=== PATIENT | female | born 1960 | race Caucasian/White ===

== ENCOUNTER 2017-11-08 12:17 | Emergency (ER) | payer SELFPAY ==
[2017-11-08] MEDS ORDERED: NORMAL SALINE 1000 ML 1,000 ML IV ONE ×3 (12:41→15:38)
[2017-11-08 12:59] LABS: ABSOLUTE LYMPHOCYTES (AUTO) 1.4 10^3/uL (0.5-4.7); ABSOLUTE MONOCYTES (AUTO) 0.5 10^3/uL (0.1-1.4); ABSOLUTE NEUT (AUTO) 11.5 10^3/uL (1.7-8.2); BASOPHILS % (AUTO) 0.3 % (0-2); EOSINOPHILS % (AUTO) 0.2 % (0-6); HEMATOCRIT 44.5 % (36.0-47.0); HEMOGLOBIN 15.4 g/dL (12.0-15.5); LYMPHOCYTES % (AUTO) 10.7 % (13-45); MEAN CORPUSCULAR HEMOGLOBIN 27.9 pg (27.0-33.4); MEAN CORPUSCULAR HGB CONC 34.5 g/dL (32.0-36.0); MEAN CORPUSCULAR VOLUME 81 fl (80-97); MONOCYTES % (AUTO) 3.9 % (3-13); PLATELET COUNT 204 10^3/uL (150-450); RED BLOOD COUNT 5.51 10^6/uL (3.72-5.28); RED CELL DISTRIBUTION WIDTH 12.8 % (11.5-14.0); SEGMENTED NEUTROPHILS % (AUTO) 84.9 % (42-78); TOTAL CELLS COUNTED % (AUTO) 100 %; WHITE BLOOD COUNT 13.6 10^3/uL (4.0-10.5)
--- NOTE | 2017-11-08 13:07 | ER Document Report ---
ED General - General Chief Complaint: Altered Mental Status Stated Complaint: BLOOD PRESSURE ISSUES Time Seen by Provider: 11/08/17 12:40 Notes: The patient is a 57-year-old female, past medical history diabetes, hypertension , diabetic gastroparesis, presents with 1 week of intermittent nausea, vomiting , body aches and chills. She said that she was unable to take her blood pressure or diabetes medications. Patient tried Phenergan and Zofran at home without much relief of her nausea and vomiting. She denies abdominal pain, hematemesis, fevers, back pain, urinary symptoms, headache or rash. TRAVEL OUTSIDE OF THE [place] IN LAST 30 DAYS: No - Related Data Allergies/Adverse Reactions: metaxalone [From Skelaxin] Allergy (Verified 11/08/17 12:41) metformin Allergy (Verified 11/08/17 12:41) Past Medical History - General Information source: Patient - Social History Smoking Status: Unknown if Ever Smoked Family History: Reviewed & Not Pertinent Review of Systems - Review of Systems Notes: REVIEW OF SYSTEMS: CONSTITUTIONAL: -fevers, +chills EENT: -eye pain, -difficulty swallowing, -nasal congestion CARDIOVASCULAR: -chest pain, -syncope. RESPIRATORY: -cough, -SOB GASTROINTESTINAL: -abdominal pain, +nausea, +vomiting, -diarrhea GENITOURINARY: -dysuria, -hematuria MUSCULOSKELETAL: -back pain, -neck pain SKIN: -rash or skin lesions. HEMATOLOGIC: -easy bruising or bleeding. LYMPHATIC: -swollen, enlarged glands. NEUROLOGICAL: -altered mental status or loss of consciousness, -headache, - neurologic symptoms PSYCHIATRIC: -anxiety, -depression. ALL OTHER SYSTEMS REVIEWED AND NEGATIVE. Physical Exam - Vital signs Vitals: Temp Pulse Resp Pulse Ox 98.0 F 92 18 99 11/08/17 12:41 11/08/17 12:41 11/08/17 12:41 11/08/17 12:41 - Notes Notes: PHYSICAL EXAMINATION: GENERAL: Well-appearing, well-nourished and in no acute distress. HEAD: Atraumatic, normocephalic. EYES: Pupils equal round and reactive to light, extraocular movements intact, sclera anicteric, conjunctiva are normal. ENT: nares patent, oropharynx clear without exudates. Moist mucous membranes. NECK: Normal range of motion, supple without lymphadenopathy LUNGS: Breath sounds clear to auscultation bilaterally and equal. No wheezes rales or rhonchi. HEART: Regular rate and rhythm without murmurs ABDOMEN: Soft, nontender, normoactive bowel sounds. No guarding, no rebound. No masses appreciated. EXTREMITIES: Normal range of motion, no pitting or edema. No cyanosis. NEUROLOGICAL: Cranial nerves grossly intact. Normal speech, normal gait. Normal sensory and motor exams. PSYCH: Normal mood, normal affect. SKIN: Warm, Dry, normal turgor, no rashes or lesions noted. Course - Re-evaluation Re-evalutation: Patient was slightly confused on arrival that quickly resolved after IV fluids and Reglan. She is no longer having nausea or vomiting and her abdomen is completely soft and nontender. She was able to tolerate her blood pressure and diabetes medications. She has an appointment with her primary care physician this week and instructed her to continue this appointment. Given very strict return precautions and she understands. - Vital Signs Vital signs: Temp Pulse Resp BP Pulse Ox 98.0 F 92 15 198/81 H 98 11/08/17 12:41 11/08/17 12:41 11/08/17 17:54 11/08/17 17:54 11/08/17 17:54 - Laboratory Result Diagrams: 11/08/17 12:45 11/08/17 12:45 Laboratory results interpreted by me: 11/08/17 11/08/17 11/08/17 12:33 12:45 12:45 WBC 13.6 H RBC 5.51 H Seg Neutrophils % 84.9 H Lymphocytes % 10.7 L Absolute Neutrophils 11.5 H Sodium 135.7 L Chloride 94 L BUN 28 H Glucose 413 H* POC Glucose 377 H Calcium 10.3 H - Diagnostic Test Radiology reviewed: Image reviewed, Reports reviewed Radiology results interpreted by me: Head CT: NAD Discharge - Discharge Clinical Impression: Hyperglycemia Nausea and vomiting Qualifiers: Vomiting type: unspecified Vomiting Intractability: non-intractable Qualified Code(s): R11.2 - Nausea with vomiting, unspecified Condition: Stable Disposition: HOME, SELF-CARE Additional Instructions: Use the Reglan to help with any nausea and vomiting. Drink plenty of water and follow-up with your primary care physician for possible adjustments of your blood pressure and diabetes medications. INFLUENZA: The physician feels that you have influenza -- the "flu". Influenza is an infection caused by a virus. Symptoms include generalized aching, fever, headache, dry cough, and fatigue. Some patients with the flu also have nausea, vomiting, and diarrhea. The fever and aches usually last two to four days, with the cough persisting another one to two weeks. Treatment of the flu, for the most part, is simply treatment of symptoms. Rest, drink plenty of fluids, and use acetaminophen for fever and aches. Do not take aspirin. There is an anti-viral medication, called Tamiflu, which may help in "type A" flu, but it's not helpful in every case of flu, and only works if started within the first 24 - 48 hours of the start of symptoms. The physician will determine whether this medication can help you. To prevent spread of the virus, use good handwashing. Shared toys should be cleaned with disinfectant. Clean the toilets, sinks, and counter surfaces in bathrooms. Launder clothing in hot water. What are conditions that should receive medical attention? The development of difficulty breathing. Lip color changes to blue or purple. Persistent vomiting and unable to keep liquids down with signs of dehydration such as: dizziness when standing, unable to urinate, or if child/ is crying no tears are noticed. Is less responsive than normal or becomes confused. How do I decrease the spread of flu in my home? Taking care of the sick patient at home: Keep the sick person in a room separate from the common areas of the house. Keep the "sickroom" door closed. If the person with the flu needs to leave the home, they should cover their nose/mouth when coughing or sneezing and wear a disposable (surgical) mask if available. These masks may be available at your local pharmacy, medical supply and hardware store. If the sick person is in common areas of the house, have them wear a surgical mask. If possible, have the sick person use a separate bathroom that should be cleaned daily with a household disinfectant. If you are the caregiver: Avoid being face to face with the sick adult person as much as possible. Try to stay at least 6 feet away and wear a disposable surgical mask when possible. When holding small children who are sick, place their chin on your shoulder so that they will not cough in your face. Wash your hands after you touch the sick person or handle their tissues and laundry. Wear a mask if you leave home, as you may be infected from taking care of someone and not know it yet. Watch yourself and others in the home for flu symptoms and contact your doctor if symptoms occur. NOTE: Antiviral medication used to reduce the symptoms of the flu works only if taken within 48 hours, and best within 24 hours of symptom onset. Household Cleaning, laundry and waste disposal: Tissues and other disposable items used by the sick person should be thrown away in the trash. Wash your hands after touching these used items. No special waste disposal is required. Keep surfaces (especially bedside tables, bathroom surfaces, and toys for children) clean by wiping them down with a safe household disinfectant according to the directions on the product label. Per Center for Disease Control advice, most people will not receive testing to confirm flu. Also based on the person's health history and onset of symptoms, not all patients will receive prescriptions for antiviral medications. If you have questions related to this, please ask your healthcare provider. For more information, you can call the Centers for Disease Control and Prevention (CDC) Hotline at 9-276-WRP-INFO This line is available in [place]ic and Martiniquais, 24 hours a day, 7 days a week. Or www.[employer]ides or www.cdc.gov Flu-Like Illness Home Instructions: The influenza virus infection can cause a wide rage of symptoms, including: Fever, cough, sore throat, body aches, headaches, chills, fatigue, with some patients reporting diarrhea and vomiting Like seasonal influenza A, H1N1 ("swine flu")in humans can vary in severity from mild to severe Severe illness with pneumonia, respiratory failure and even is possible Certain groups might be more likely to develop a severe illness from H1N1 infection. Sometimes bacterial infections may occur at the same time as or after infection with influenza viruses and lead to pneumonias, ear infections, or sinus infections. How Flu Spreads The main way that influenza viruses spread is through respiratory droplets of coughs and sneezes. This can happen when someone with the infection coughs or sneezes and the particles fly through the air and land on other people and surfaces. If the person covers their mouth and nose with their hand but does not wash their hands immediately, then these germs are passed onto the next object that they touch. People with Influenza A or suspected H1N1 (swine flu) who are cared for at home should: Check with their doctor about any special care that they might need if they are or have a health condition such as diabetes, heart disease, asthma or emphysema. Also, limit caregiver to one (if possible). women or those with chronic health conditions should not take care of the flu patient unless necessary. Check with their doctor about whether or not medications are needed that may lessen the symptoms of the flu. Stay at home until 24 hours fever free without the use of fever reducing medication. Get plenty of rest and avoid other healthy people in your home. Drink plenty of clear liquids to keep from getting dehydrated. Take medications like Tylenol (Acetaminophen), Advil/Motrin/Nuprin ( Ibuprofen) or Aleve (Naproxen) for fevers and aches. All children under the age of 18 years of age should not take aspirin or products containing aspirin (e.g. Pepto Bismol), as this can cause a rare serious illness called Jim Syndrome. Over the counter medications for flu and colds may help, but it is very important to follow the package directions. Remember that the medicine may help the symptoms, but it will not help prevent others from getting sick if they are around you. Cover coughs and sneezes using your bent arm. Clean hands with soap and water or an alcohol-based hand rub often, especially after using tissues to cough or sneeze. Encourage hand washing frequently for all people living in the home! The sick person should not have visitors other than caregivers. Encourage concerned loved ones to call instead of visit. Avoid close contact with others-do not go to work or school while sick. USE OF ACETAMINOPHEN (Tylenol): Acetaminophen may be taken for pain relief or fever control. It's much safer than aspirin, offering a wider range of "safe" dosages. It is safe during . Some brand names are Tylenol, Panadol, Datril, Anacin 3, Tempra, and Liquiprin. Acetaminophen can be repeated every four hours. The following are maximum recommended dosages: WEIGHT Dose Drops Elixir Chewable( 80mg) (LBS.) drprs=droppers tsp=teaspoon 6 40 mg 0.4 ml (1/2) 6-11 80 mg 0.8 ml (full) tsp 1 tab 12-16 120 mg 1 1/2 drprs 3/4 tsp 1 1/2 tabs 17-23 160 mg 2 drprs 1 tsp 2 tabs 24-30 240 mg 3 drprs 1 1/2 tsp 3 tabs 30-35 320 mg 2 tsp 4 tabs 36-41 360 mg 2 1/4 tsp 4 1/2 tabs 42-47 400 mg 2 1/2 tsp 5 tabs 48-53 480 mg 3 tsp 6 tabs 54-59 520 mg 3 1/4 tsp 6 1/2 tabs 60-64 560 mg 3 1/2 tsp 7 tabs 65-70 600 mg 3 3/4 tsp 7 1/2 tabs 71-76 640 mg 4 tsp 8 tabs 77-82 720 mg 4 1/2 tsp 9 tabs 83-88 800 mg 5 tsp 10 tabs >89 pounds or adults 650 mg to 900 mg Acetaminophen can be repeated every four hours. Maximum dose not to exceed 4000 mg a day. These maximum recommended dosages are slightly higher than the dosages written on the product container, but these dosages are very safe and below the toxic dosage for acetaminophen. ORAL NARCOTIC MEDICATION: You have been given a prescription for pain control. This medication is a narcotic. It's best taken with food, as nausea can result if taken on an empty stomach. Don't operate machinery or drive within six hours of taking this medication. Do not combine this medicine with alcohol, or with any medication which can cause sedation (such as cold tablets or sleeping pills) unless you get permission from the physician. Narcotics tend to cause constipation. If possible, drink plenty of fluids and eat a diet high in fiber and fruits. Please be aware that prescription narcotics also have the potential for abuse. People become addicted to these medications because of the general sense of wellbeing that they induce. This feeling along with a significant reduction in tension, anxiety, and aggression provides a stimulating seductive quality to these drugs. Once your pain is under control, we encourage you to discard your unused narcotics. FOLLOW-UP CARE: If you have been referred to a physician for follow-up care, call the physician s office for an appointment as you were instructed or within the next two days. If you experience worsening or a significant change in your symptoms, notify the physician immediately or return to the Emergency Department at any time for re-evaluation. Prescriptions: Metoclopramide HCl [Reglan 10 mg Tablet] 1 - 2 tab PO ASDIR PRN #25 tablet PRN Reason: Forms: Elevated Blood Pressure Referrals: CHAD ZUNIGA MD [[facility]] - Follow up as needed
[2017-11-08 13:20] LABS: ALANINE AMINOTRANSFERASE 23 U/L (9-52); ALKALINE PHOSPHATASE 101 U/L (38-126); ANION GAP 17 (5-19); ASPARTATE AMINO TRANSFERASE 19 U/L (14-36); BILIRUBIN,DIRECT 0.3 mg/dL (0.0-0.4); BILIRUBIN,TOTAL 0.8 mg/dL (0.2-1.3); BLOOD UREA NITROGEN 28 mg/dL (7-20); CALCIUM 10.3 mg/dL (8.4-10.2); CARBON DIOXIDE 25 mmol/L (22-30); CHLORIDE 94 mmol/L (98-107); CREATINE KINASE 57 U/L (30-135); LIPASE 81.3 U/L (23-300); POTASSIUM 4.2 mmol/L (3.6-5.0); SODIUM 135.7 mmol/L (137-145); TOTAL PROTEIN 6.4 g/dL (6.3-8.2)
[2017-11-08 13:34] LABS: GLUCOSE 413 mg/dL (75-110)
--- NOTE | 2017-11-08 13:38 | RADIOLOGY REPORT (SQ) ---
EXAM DESCRIPTION: CT HEAD WITHOUT COMPLETED DATE/TIME: 11/08/2017 1:11 pm REASON FOR STUDY: AMS COMPARISON: None. TECHNIQUE: Axial images acquired through the brain without intravenous contrast. Images reviewed wi th bone, brain and subdural windows. Images stored on PACS. All CT scanners at this facility use dose modulation, iterative reconstruction, and/or weight based d osing when appropriate to reduce radiation dose to as low as reasonably achievable (ALARA). [facility]: Dose Right [facility]: CareDose [facility]: Dose Right [facility]: Teradose 4D [facility]: [employer] RADIATION DOSE: CT Rad equipment meets quality standard of care and radiation dose reduction techniq ues were employed. CTDIvol: 64.6 mGy. DLP: 1163 mGy-cm. mGy. LIMITATIONS: None. FINDINGS: VENTRICLES: Normal size and contour. CEREBRUM: There is evidence of a focal areas of decreased attenuation in the left periventricular wh ite matter consist with old infarcts. No intracranial hemorrhage identified. No additional abnormal areas of increased decreased attenuation noted. CEREBELLUM: No masses. No hemorrhage. No alteration of density. No evidence for acute infarction. EXTRAAXIAL SPACES: No fluid collections. No masses. ORBITS AND GLOBE: No intra- or extraconal masses. Normal contour of globe without masses. CALVARIUM: No fracture. PARANASAL SINUSES: There is evidence of hyperdense mucosal thickening within the right sphenoid sinus . Minimal mucosal thickening left sphenoid sinus. Fluid level within sphenoid sinus noted. 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 Acute and chronic sphenoid sinusitis. EVIDENCE OF ACUTE STROKE: NO. COMMENT: Quality ID # [id number]: Final reports with documentation of one or more dose reduction techniques (e.g., Automated exposure control, adjustment of the mA and/or kV according to patient size, use of iterative reconstruction technique) TECHNICAL DOCUMENTATION: JOB ID: [id number] 2010 [employer]- All Rights Reserved
[2017-11-08 13:49] LABS: VENOUS BLOOD HCO3 25.4 mmol/L (20-32); VENOUS BLOOD PH 7.38 (7.30-7.42)
[2017-11-08] MEDS ORDERED: METOCLOPRAMIDE HCL INJ/PF 10 MG/2 ML SDV IV ONE (13:49)
[2017-11-08] MEDS ORDERED: DIPHENHYDRAMINE HCL 50 MG/ML VIAL IV ONE (13:50)
[2017-11-08 17:57] VITALS: BP 198/81
--- NOTE | 2017-11-08 22:34 | EKG REPORT ---
SEVERITY:- ABNORMAL ECG - SINUS RHYTHM CONSIDER ANTEROSEPTAL INFARCT : Confirmed by: Candis Schofield 08-Nov-2017 22:33:48
== END 2017-11-08 18:31 | disposition home or self-care (01) ==
LOC: ER 12:17
DX: E11.65 Type 2 diabetes mellitus with hyperglycemia (principal); E11.43 Type 2 diabetes mellitus with diabetic autonomic (poly)neuropathy; K31.84 Gastroparesis; R11.2 Nausea with vomiting, unspecified; R68.83 Chills (without fever); R41.0 Disorientation, unspecified; I10 Essential (primary) hypertension; Z79.899 Other long term (current) drug therapy; Z88.8 Allergy status to other drugs, medicaments and biological substances
CPT/HCPCS: 93005; 99285; 96361; 51701; 96374; 96375; 36415; 82962; 82550; 83690; 85025; 80053; 84484; 82803; 70450; 93010; J1200; J2765; J7030

== ENCOUNTER 2017-12-03 19:31 | Inpatient (IN) | payer OTHER ==
--- NOTE | 2017-12-03 20:13 | ER Document Report ---
ED Medical Screen (RME) - General Chief Complaint: Other Stated Complaint: WEIGHT GAIN Time Seen by Provider: 12/03/17 20:12 Notes: Patient reports a 12 pound weight gain in the last 2 weeks. She also states that she has some dysuria and has been urinating less than normal. Patient also states that both legs have been swelling. She is having some lower abdominal cramping. No previous history of similar pain. No history of DVTs. TRAVEL OUTSIDE OF THE [place] IN LAST 30 DAYS: No - Related Data Allergies/Adverse Reactions: metaxalone [From Skelaxin] Allergy (Verified 12/03/17 20:00) metformin Allergy (Verified 12/03/17 20:00) Past Medical History - Social History Chew tobacco use (# tins/day): No Frequency of alcohol use: Occasional Drug Abuse: None - Past Medical History Cardiac Medical History: Reports: Hx Hypertension Endocrine Medical History: Reports: Hx Diabetes Mellitus Type 2 Renal/ Medical History: Denies: Hx Peritoneal Dialysis GI Medical History: Reports: Hx Gastroesophageal Reflux Disease Past Surgical History: Reports: Hx Abdominal Surgery, Hx Cholecystectomy
[2017-12-03 20:36] LABS: ABSOLUTE BASOPHILS # (AUTO) 0.1 10^3/uL (0.0-0.2); ABSOLUTE EOSINOPHILS # (AUTO) 0.1 10^3/uL (0.0-0.6); ABSOLUTE MONOCYTES (AUTO) 0.8 10^3/uL (0.1-1.4); ABSOLUTE NEUT (AUTO) 9.5 10^3/uL (1.7-8.2); BASOPHILS % (AUTO) 0.7 % (0-2); EOSINOPHILS % (AUTO) 1.1 % (0-6); HEMOGLOBIN 11.3 g/dL (12.0-15.5); LYMPHOCYTES % (AUTO) 8.4 % (13-45); MEAN CORPUSCULAR HEMOGLOBIN 27.9 pg (27.0-33.4); MEAN CORPUSCULAR HGB CONC 34.3 g/dL (32.0-36.0); MEAN CORPUSCULAR VOLUME 81 fl (80-97); MONOCYTES % (AUTO) 7.3 % (3-13); PLATELET COUNT 138 10^3/uL (150-450); RED BLOOD COUNT 4.06 10^6/uL (3.72-5.28); RED CELL DISTRIBUTION WIDTH 13.4 % (11.5-14.0); SEGMENTED NEUTROPHILS % (AUTO) 82.5 % (42-78); TOTAL CELLS COUNTED % (AUTO) 100 %; WHITE BLOOD COUNT 11.5 10^3/uL (4.0-10.5)
[2017-12-03 20:52] LABS: APPEARANCE,URINE CLEAR; BILIRUBIN,URINE NEGATIVE (NEGATIVE); COLOR,URINE STRAW; GLUCOSE, URINE NEGATIVE (NEGATIVE); KETONES,URINE NEGATIVE (NEGATIVE); LEUKOCYTE ESTERASE,URINE NEGATIVE (NEGATIVE); NITRITE,URINE NEGATIVE (NEGATIVE); PROTEIN,URINE 100 mg/dL (NEGATIVE); URINE SPECIFIC GRAVITY 1.003; UROBILINOGEN,URINE NEGATIVE mg/dL (<2.0)
[2017-12-03 20:54] LABS: ALANINE AMINOTRANSFERASE 30 U/L (9-52); ALBUMIN 3.1 g/dL (3.5-5.0); ALKALINE PHOSPHATASE 92 U/L (38-126); ANION GAP 6 (5-19); ASPARTATE AMINO TRANSFERASE 29 U/L (14-36); BILIRUBIN,DIRECT 0.4 mg/dL (0.0-0.4); BILIRUBIN,TOTAL 0.4 mg/dL (0.2-1.3); BLOOD UREA NITROGEN 27 mg/dL (7-20); CALCIUM 9.1 mg/dL (8.4-10.2); CARBON DIOXIDE 30 mmol/L (22-30); CHLORIDE 97 mmol/L (98-107); GLUCOSE 156 mg/dL (75-110); POTASSIUM 4.2 mmol/L (3.6-5.0); SODIUM 133.1 mmol/L (137-145); TOTAL PROTEIN 5.6 g/dL (6.3-8.2)
[2017-12-03 21:30] LABS: FREE T3 3.54 pg/mL (2.77-5.27); FREE T4 (FREE THYROXINE) 1.41 ng/dL (0.78-2.19); THYROID STIMULATING HORMONE 1.37 uIU/mL (0.47-4.68)
--- NOTE | 2017-12-03 22:07 | ER Document Report ---
ED General - General Chief Complaint: Other Stated Complaint: WEIGHT GAIN Time Seen by Provider: 12/03/17 20:12 Notes: Patient is a 57-year-old female with a past medical history of hypertension, chronic low back pain on opiate therapy daily who presents with concerns of a 20 pound weight gain in the past 3 weeks. Patient saw her primary care physician today and was subsequently referred to the emergency department for further evaluation given the market elevation of her weight in such a short period of time. Patient denies any history of similar episodes in the past. She denies any known history of renal failure, hepatic failure or congestive heart failure. She does note that in addition to weight gain she has felt increasingly fatigued particularly on exertion and has a mild amount of shortness of breath of the baseline. This is not typical for her. She denies any chest pain, syncope, abdominal pain, vomiting or fever. She has not noted that anything seems to improve or worsen her symptoms. TRAVEL OUTSIDE OF THE [place] IN LAST 30 DAYS: No - Related Data Allergies/Adverse Reactions: metaxalone [From Skelaxin] Allergy (Verified 12/03/17 20:00) metformin Allergy (Verified 12/03/17 20:00) Past Medical History - General Information source: Patient - Social History Smoking Status: Never Smoker Chew tobacco use (# tins/day): No Frequency of alcohol use: Occasional Drug Abuse: None Lives with: Family Family History: Reviewed & Not Pertinent Patient has suicidal ideation: No Patient has homicidal ideation: No - Past Medical History Cardiac Medical History: Reports: Hx Hypertension Endocrine Medical History: Reports: Hx Diabetes Mellitus Type 2 Renal/ Medical History: Denies: Hx Peritoneal Dialysis GI Medical History: Reports: Hx Gastroesophageal Reflux Disease Past Surgical History: Reports: Hx Abdominal Surgery, Hx Cholecystectomy Review of Systems - Review of Systems Notes: Constitutional: Negative for fever. HENT: Negative for sore throat. Eyes: Negative for visual changes. Cardiovascular: Negative for chest pain. Respiratory: Positive for shortness of breath. Gastrointestinal: Negative for abdominal pain, vomiting or diarrhea. Genitourinary: Negative for dysuria. Musculoskeletal: Negative for back pain. Skin: Positive for bilateral lower extremity edema Neurological: Negative for headaches, weakness or numbness. 10 point ROS negative except as marked above and in HPI. Physical Exam - Vital signs Vitals: Resp BP Pulse Ox 18 176/83 H 97 12/03/17 20:39 12/03/17 20:39 12/03/17 20:39 Interpretation: Hypertensive, Tachycardic, Tachypneic Notes: PHYSICAL EXAMINATION: GENERAL: Appears mildly uncomfortable but in no acute distress HEAD: Atraumatic, normocephalic. EYES: Pupils equal round and reactive to light, extraocular movements intact, sclera anicteric, conjunctiva are normal. ENT: nares patent, oropharynx clear without exudates. Moderately dry mucous membranes. NECK: Normal range of motion, supple without lymphadenopathy LUNGS: Breath sounds clear to auscultation bilaterally and equal. Faint rhonchi at the bases bilaterally HEART: Regular tachycardia without murmurs ABDOMEN: Soft, nontender, normoactive bowel sounds. No guarding, no rebound. No masses appreciated. EXTREMITIES: Normal range of motion, 4+ pitting edema that is equal and symmetric in the bilateral lower extremities NEUROLOGICAL: No focal neurological deficits. Moves all extremities spontaneously and on command. PSYCH: Normal mood, normal affect. SKIN: Warm, Dry, normal turgor, no rashes or lesions noted. Course - Re-evaluation Re-evalutation: 12/03/17 22:00 Patient presents with concerns of 15-20 pounds of weight gain the past 2 weeks. She denies any additional complaints other than bilateral lower extremity edema that is equal and symmetric. On examination the patient is overall well in appearance, vitals within normal limits and she is in no acute distress. She is however noted to have a oxygen saturation of 93-94% which is lower than what it was when she was here approximately 3 weeks ago. Patient does have a history of market hypertension and her labs today do suggest some degree of congestive failure. On examination she does have 4+ pitting edema in the bilateral lower extremities that is equal and symmetric and may very likely account for the onset of her weight gain. The remainder of her labs otherwise unremarkable. Thyroid levels are within normal limits. 12/03/17 22:15 Chest x-ray does show some mild pulmonary edema slightly worse in the right versus the left. The patient does maintain saturations between 90-93% with a good plus the entire time I am speaking to her in the room. This is worrisome for to give the context of her chest x-ray and significant weight gain at 22 kg in less than a month. I believe this patient does require hospitalization for emergent echocardiogram as well as IV diuresis. I discussed this case with Dr. Ulises Tavarez and he is agreeable to admission. - Vital Signs Vital signs: Temp Pulse Resp BP Pulse Ox 99.9 F 17 151/55 H 96 12/04/17 01:05 12/04/17 02:15 12/04/17 02:06 12/04/17 02:15 - Laboratory Result Diagrams: 12/03/17 20:24 12/03/17 20:24 Laboratory results interpreted by me: 12/03/17 12/03/17 12/03/17 20:24 20:24 20:24 WBC 11.5 H Hgb 11.3 L Hct 33.0 L Plt Count 138 L Seg Neutrophils % 82.5 H Lymphocytes % 8.4 L Absolute Neutrophils 9.5 H Sodium 133.1 L Chloride 97 L BUN 27 H Glucose 156 H Hemoglobin A1c % NT-Pro-B Natriuret Pep Total Protein 5.6 L Albumin 3.1 L Urine Protein 100 H Urine Blood MODERATE H 12/03/17 12/03/17 20:24 20:24 WBC Hgb Hct Plt Count Seg Neutrophils % Lymphocytes % Absolute Neutrophils Sodium Chloride BUN Glucose Hemoglobin A1c % 12.0 H NT-Pro-B Natriuret Pep 1070 H Total Protein Albumin Urine Protein Urine Blood - Diagnostic Test Radiology reviewed: Image reviewed, Reports reviewed Radiology results interpreted by me: 12/03/17 22:15 CXR: Bilateral pulmonary edema worse on the right - EKG Interpretation by Me Additional EKG results interpreted by me: 12/04/17 03:15 Sinus tachycardia. Rate 106. No ST elevations or depressions. QTC is 446. Discharge - Discharge Clinical Impression: Bilateral lower extremity edema Volume overload Qualifiers: Hypervolemia type: unspecified Qualified Code(s): E87.70 - Fluid overload, unspecified Pulmonary edema Qualifiers: Chronicity: acute Qualified Code(s): J81.0 - Acute pulmonary edema Condition: Fair Disposition: ADMITTED INPATIENT Admitting Provider: Roxane Tavarez Unit Admitted: Telemetry
[2017-12-03] MEDS ORDERED: FUROSEMIDE INJ/PF 40 MG/4 ML SDV IV ONE (22:08)
[2017-12-03] MEDS ORDERED: ENALAPRILAT DIHYDRATE INJ/PF 1.25 MG/1 ML SDV IV PRN (22:14)
[2017-12-03] MEDS ORDERED: HYDRALAZINE HCL INJ/PF 20 MG/1 ML SDV IV PRN (22:14)
[2017-12-03] MEDS ORDERED: MAGNESIUM HYDROXIDE SUSP 30 ML UDCUP PO PRN (22:14)
[2017-12-03] MEDS ORDERED: ACETAMINOPHEN 325 MG TABLET PO PRN (22:14)
--- NOTE | 2017-12-03 22:24 | RADIOLOGY REPORT (SQ) ---
EXAM DESCRIPTION: CHEST SINGLE VIEW COMPLETED DATE/TIME: 12/03/2017 10:10 pm REASON FOR STUDY: sob COMPARISON: None. EXAM PARAMETERS: NUMBER OF VIEWS: One view. TECHNIQUE: Single frontal radiographic view of the chest acquired. RADIATION DOSE: NA LIMITATIONS: None. FINDINGS: LUNGS AND PLEURA: There is mild opacification in the right lung field compared to the left . Mild interstitial changes are present. MEDIASTINUM AND HILAR STRUCTURES: No masses. Contour normal. HEART AND VASCULAR STRUCTURES: Heart normal in size. Normal vasculature. BONES: No acute findings. HARDWARE: None in the chest. OTHER: No other significant finding. IMPRESSION: Cannot exclude an early or limited right lower lobe pneumonia. TECHNICAL DOCUMENTATION: JOB ID: [id number] [employer]- All Rights Reserved Reading location - IP/workstation name: [email or web address]
[2017-12-03] MEDS ORDERED: NITROGLYCERIN 5 MG (0.2 MG/HR) PATCH.TD24 TD ONE (23:00)
[2017-12-04] MEDS ORDERED: INSULIN GLARGINE,HUM.REC.ANLOG 1,000 UNIT/10 ML UNIT SUBCUT ONE ×2 (00:55→23:45)
[2017-12-04] MEDS ORDERED: METOPROLOL TARTRATE PF/INJ 5 MG/5 ML SDV IV ONE (01:25)
[2017-12-04] MEDS ORDERED: DEXTROSE 40% GEL 15 GM TUBE PO PRN ×3 (01:33→10:29)
[2017-12-04] MEDS ORDERED: DEXTROSE 50%-WATER SYRINGE 25 GM/50 ML DOSE IV PRN (01:33)
[2017-12-04] MEDS ORDERED: DEXTROSE 50%-WATER SYRINGE 12.5 GM/25 ML DOSE IV PRN (01:33)
[2017-12-04] MEDS ORDERED: DEXTROSE 40% GEL 15 GM TUBE X 2 PO PRN (01:33)
[2017-12-04] MEDS ORDERED: GLUCAGON,HUMAN RECOMB 1 MG INJ IM PRN ×2 (01:33→10:29)
[2017-12-04] MEDS ORDERED: INSULIN LISPRO 100 UNIT/ML 3 ML VIAL SUBCUT PRN (01:33)
[2017-12-04 03:07] LABS: CREATINE KINASE MB 1.08 ng/mL (<4.55)
[2017-12-04 03:10] LABS: TROPONIN I < 0.012 ng/mL
--- NOTE | 2017-12-04 03:53 | PDOC H&P ---
History of Present Illness Admission Date/PCP: 12/03/17 22:52 Patient complains of: Weight gain History of Present Illness: JASMIN MURDOCK is a 57 year old female with a past medical history of hypertension and diabetes. She presents with a 20 pound weight gain in 3 weeks , shortness of breath with exertion and uncontrolled blood pressure. In the emergency room her blood pressure is 190/115. She is ordered IV Lasix and referred to the hospitalist for admission. She denies chest pain, change in medications or diet. Past Medical History Cardiac Medical History: Reports: Hypertension, Heart Murmur Denies: Atrial Fibrillation Pulmonary Medical History: Reports: None EENT Medical History: Reports: None Neurological Medical History: Reports: None Endocrine Medical History: Reports: Diabetes Mellitus Type 2 Renal/ Medical History: Reports: None Malignancy Medical History: Reports: None GI Medical History: Reports: Gastroesophageal Reflux Disease Musculoskeltal Medical History: Reports: None Skin Medical History: Reports: None Psychiatric Medical History: Reports: None Traumatic Medical History: Reports: None Hematology: Reports: None Infectious Medical History: Reports: None Past Surgical History Past Surgical History: Reports: Cholecystectomy Social History Lives with: Family Smoking Status: Never Smoker Frequency of Alcohol Use: None Drugs: None - Advance Directive Resuscitation Status: Full Code Family History Family History: CAD, Hypertension Parental Family History Reviewed: Yes Children Family History Reviewed: Yes Sibling(s) Family History Reviewed.: Yes Medication/Allergy Home Medications: Metoclopramide HCl [Reglan 10 mg Tablet] 1 - 2 tab PO ASDIR PRN #25 tablet 11/08 Allergies/Adverse Reactions: metaxalone [From Skelaxin] Allergy (Verified 12/03/17 20:00) metformin Allergy (Verified 12/03/17 20:00) Review of Systems Constitutional: PRESENT: as per HPI, fatigue, weight gain Eyes: ABSENT: visual disturbances Ears: ABSENT: hearing changes Cardiovascular: PRESENT: dyspnea on exertion, edema, orthropnea, palpitations. ABSENT: chest pain Respiratory: ABSENT: cough, hemoptysis Gastrointestinal: ABSENT: abdominal pain, constipation, diarrhea, hematemesis, hematochezia, nausea, vomiting Genitourinary: ABSENT: dysuria, hematuria Musculoskeletal: ABSENT: joint swelling Integumentary: ABSENT: rash, wounds Neurological: ABSENT: abnormal gait, abnormal speech, confusion, dizziness, focal weakness, syncope Psychiatric: ABSENT: anxiety, depression, homidical ideation, suicidal ideation Endocrine: ABSENT: cold intolerance, heat intolerance, polydipsia, polyuria Hematologic/Lymphatic: ABSENT: easy bleeding, easy bruising Physical Exam Vital Signs: Temp Pulse Resp BP Pulse Ox 99.9 F 17 151/55 H 96 12/04/17 01:05 12/04/17 02:15 12/04/17 02:06 12/04/17 02:15 General appearance: PRESENT: cooperative, mild distress, well-developed, well- nourished Head exam: PRESENT: atraumatic, normocephalic Eye exam: PRESENT: conjunctiva pink, EOMI, PERRLA. ABSENT: scleral icterus Ear exam: PRESENT: normal external ear exam Mouth exam: PRESENT: moist, tongue midline Neck exam: ABSENT: carotid bruit, JVD, lymphadenopathy, thyromegaly Respiratory exam: PRESENT: accessory muscle use, crackles, decreased breath sounds, retraction, symmetrical, tachypnea Cardiovascular exam: PRESENT: diastolic murmur, gallop, RRR. ABSENT: rubs Pulses: PRESENT: normal dorsalis pedis pul Vascular exam: PRESENT: normal capillary refill GI/Abdominal exam: PRESENT: normal bowel sounds, soft. ABSENT: distended, guarding, mass, organolmegaly, rebound, tenderness Rectal exam: PRESENT: deferred Extremities exam: PRESENT: +2 edema Neurological exam: PRESENT: alert, awake, oriented to person, oriented to place , oriented to time, oriented to situation, CN II-XII grossly intact. ABSENT: motor sensory deficit Psychiatric exam: PRESENT: appropriate affect, normal mood. ABSENT: homicidal ideation, suicidal ideation Skin exam: PRESENT: dry, intact, warm. ABSENT: cyanosis, rash Results Laboratory Results: 12/04/17 12/04/17 02:25 02:25 Creatine Kinase 127 CK-MB (CK-2) 1.08 Troponin I < 0.012 Impressions: Chest X-Ray 12/03/17 21:45 IMPRESSION: Cannot exclude an early or limited right lower lobe pneumonia. Assessment & Plan - Diagnosis (1) Hypertensive emergency Is this a current diagnosis for this admission?: Yes Plan: IV hydralazine and Vasotec. (2) Congestive heart failure Is this a current diagnosis for this admission?: Yes Plan: Diastolic murmur, 2D echo, diuresis and education consider cardiology consult. (3) Diastolic murmur Is this a current diagnosis for this admission?: Yes Plan: Please see #2 (4) Diabetes Is this a current diagnosis for this admission?: Yes Plan: Unclear control follow-up A1c, outpatient regiment with sliding scale insulin (5) Bilateral lower extremity edema Is this a current diagnosis for this admission?: Yes Plan: Secondary to #1 NANDO martinez - Time Time Spent: 50 to 70 Minutes - Inpatient Certification Medical Necessity: Need Close Monitoring Due to Risk of Patient Decompensation
[2017-12-04] MEDS: HEPARIN SOD (PORCINE) 5,000 UNIT/ML 1 ML SYRINGE SUBCUT SCH ×3 (06:54→21:58)
--- NOTE | 2017-12-04 09:10 | EKG REPORT ---
SEVERITY:- ABNORMAL ECG - SINUS TACHYCARDIA CONSIDER ANTEROSEPTAL INFARCT : Confirmed by: Candis Schofield 04-Dec-2017 09:10:06
[2017-12-04] MEDS ORDERED: HYDROXYZINE HCL 10 MG TABLET PO PRN (09:41)
[2017-12-04] MEDS ORDERED: METHYLPREDNISOLONE DOSEPAK (4 MG/TAB) 21 TAB/DSPK PO PRN (09:43)
[2017-12-04] MEDS ORDERED: PREDNISONE 10 MG TABLET PO ONE (09:47)
[2017-12-04] MEDS ORDERED: DIPHENHYDRAMINE HCL 25 MG CAPSULE PO ONE (10:14)
[2017-12-04] MEDS ORDERED: DEXTROSE 50%-WATER 25 GM/50 ML DISP.SYRIN IV PRN ×2 (10:29)
--- NOTE | 2017-12-04 10:47 | PDOC PROGRESS REPORT ---
Subjective Progress Note for:: 12/04/17 Subjective:: Patient is a 57-year-old female who presented with difficulty breathing and bilateral pedal edema. Patient is a long-time hypertensive and was initially on atenolol. Patient was switched to Bystolic. Patient does not believe that dose is high enough. Patient states she feels somewhat better. Patient is up and walking. Patient states her pedal edema is better. Patient did develop a rash on her left arm is uncertain as to what may have caused it. It is not itchy. Reason For Visit: HTN URGENCY, HEART FAILURE Physical Exam Vital Signs: Temp Pulse Resp BP Pulse Ox 99.9 F 16 151/75 H 97 12/04/17 01:05 12/04/17 07:01 12/04/17 07:01 12/04/17 07:30 General appearance: PRESENT: no acute distress, well-developed, well-nourished Head exam: PRESENT: normocephalic Eye exam: PRESENT: EOMI. ABSENT: scleral icterus Ear exam: PRESENT: normal external ear exam Mouth exam: PRESENT: moist Neck exam: ABSENT: carotid bruit, JVD, lymphadenopathy, thyromegaly Respiratory exam: PRESENT: clear to auscultation joshua. ABSENT: rales, rhonchi, wheezes Cardiovascular exam: PRESENT: RRR, other - Pedal edema and positive murmur.. ABSENT: rubs, systolic murmur Pulses: PRESENT: normal dorsalis pedis pul Vascular exam: PRESENT: normal capillary refill GI/Abdominal exam: PRESENT: normal bowel sounds, soft. ABSENT: distended, guarding, mass, organolmegaly, rebound, tenderness Rectal exam: PRESENT: deferred Extremities exam: PRESENT: full ROM, pedal edema. ABSENT: calf tenderness, clubbing Neurological exam: PRESENT: alert, awake, oriented to person, oriented to place , oriented to time, oriented to situation, CN II-XII grossly intact. ABSENT: motor sensory deficit Psychiatric exam: PRESENT: appropriate affect, normal mood. ABSENT: homicidal ideation, suicidal ideation Skin exam: PRESENT: dry, intact, rash - Left arm rash nonpruritic, warm. ABSENT : cyanosis Results Laboratory Results: 12/04/17 12/04/17 02:25 02:25 Creatine Kinase 127 CK-MB (CK-2) 1.08 Troponin I < 0.012 Impressions: Chest X-Ray 12/03/17 21:45 IMPRESSION: Cannot exclude an early or limited right lower lobe pneumonia. Assessment & Plan - Diagnosis (1) Hypertensive emergency Is this a current diagnosis for this admission?: Yes Plan: Presented with increased shortness of breath and pedal edema. Patient blood pressures were elevated. Patient was given IV Lopressor. Patient blood pressures are better controlled. Patient respiratory symptoms are improved. Patient with improving pedal edema. Patient is being worked up for possible congestive heart failure. Patient is restarted bystolic. Concerned about starting new medications this patient may have drug sensitivities. (2) Bilateral lower extremity edema Is this a current diagnosis for this admission?: Yes Plan: Patient had bilateral lower extremity edema, shortness of breath and elevated BNP concerning for possible new onset CHF. Patient does have a history of uncontrolled hypertension which puts her at risk. Cardiac echo is pending. Patient breathing is improved. Patient started on Lasix and edema is improved. Restart patient on bystolic 10mg daily. Patient on 1200cc fluid restriction and daily weights. (3) Diabetes Qualifiers: Diabetes mellitus type: type 2 Is this a current diagnosis for this admission?: Yes Plan: Patient with type 2 diabetes. Will check a hemoglobin A1c. Patient started on sliding scale insulin. (4) Rash Plan: Patient has a rash on her left arm uncertain of the cause. It is nonpruritic. Patient given a dose of Benadryl. Will also give a dose of prednisone. Will monitor for resolution.
[2017-12-04] MEDS ORDERED: NEBIVOLOL HCL 10 MG TABLET PO ONE (12:00)
[2017-12-04] MEDS: DOCUSATE SODIUM 100 MG CAPSULE PO SCH (12:07)
[2017-12-04] MEDS: FUROSEMIDE INJ/PF 40 MG/4 ML SDV IV SCH ×2 (12:07→21:41)
[2017-12-04] MEDS: OXYCODONE HCL IR 5 MG TABLET PO PRN ×3 (12:08→22:52)
[2017-12-04] MEDS: ASPIRIN 81 MG TABLET, ENT COATED PO SCH (12:09)
[2017-12-04] MEDS: INSULIN REG, HUMAN 100 UNIT/ML 3 ML VIAL (PYX) SUBCUT PRN ×2 (12:14→17:53)
[2017-12-04] MEDS: POTASSIUM CHLORIDE 10 MEQ TABLET.SA PO SCH ×2 (12:20→21:41)
[2017-12-04] MEDS ORDERED: PREDNISONE 10 MG TABLET ONE (12:22)
[2017-12-04 16:34] LABS: CREATINE KINASE MB 0.78 ng/mL (<4.55)
[2017-12-04 16:42] LABS: TROPONIN I < 0.012 ng/mL
[2017-12-04 18:03] LABS: ANION GAP 7 (5-19); BLOOD UREA NITROGEN 24 mg/dL (7-20); CALCIUM 9.3 mg/dL (8.4-10.2); CARBON DIOXIDE 30 mmol/L (22-30); CHLORIDE 100 mmol/L (98-107); GLUCOSE 209 mg/dL (75-110); POTASSIUM 3.7 mmol/L (3.6-5.0)
[2017-12-04] MEDS ORDERED: CLONIDINE HCL 0.1 MG TABLET PO ONE (19:00)
--- NOTE | 2017-12-04 20:32 | XCELERA REPORT ---
[address] [address] Transthoracic Echocardiogram Report Name: JASMIN MURDOCK Age: 57 yrs Gender: Female : 1960 Patient Status: Inpatient Patient Location: [address] [place], [place] [address] Study Date: 12/04/2017 03:03 PM Height: 63 in Weight: 151 lb BSA: 1.7 m2 Procedure: A complete two-dimensional transthoracic echocardiogram was performed (2D, M-mode, spectral and color flow Doppler). The study was technically adequate with some images being suboptimal in quality. Reason For Study: gallop Ordering Physician: LEONARD SILVA Performed By: Esperanza Perez Interpretation Summary The left ventricular ejection fraction is normal. There is mild concentric left ventricular hypertrophy. The left ventricle is grossly normal size. Doppler measurements suggest pseudonormalized left ventricular relaxation, which is associated with grade II/IV or mild to moderate diastolic dysfunction Wall motion cannot be accurately commented on, but no definite regional wall motion abnormalities noted. The right ventricular systolic function is normal. The left atrium is mildly dilated. The right atrium is normal in size There is a mild amount of mitral regurgitation There is no mitral valve stenosis. There is a moderate amount of aortic regurgitation There is no aortic valve stenosis There is a trace to mild amount of tricuspid regurgitation There is mild pulmonary hypertension by echo Right ventricular systolic pressure is estimated to be elevated at 30- 40mmHg. The aortic root is not well visualized but is probably normal size. The inferior vena cava appeared normal and decreased < 50% with respiration (RAP 10-15 mmHg) There is no pericardial effusion. MMode/2D Measurements & Calculations RVDd: 2.6 cm LVIDd: 4.5 cm FS: 34.7 % Ao root diam: 2.6 cm IVSd: 0.94 cm LVIDs: 2.9 cm EDV(Teich): 91.5 ml LVPWd: 0.96 cmESV(Teich): 32.9 ml Ao root area: 5.3 cm2 EF(Teich): 64.0 % LA dimension: 4.4 cm LVOT diam: 2.0 cm LVOT area: 3.1 cm2 Doppler Measurements & Calculations MV E max daryn: MV P1/2t max daryn: Ao V2 max: AI max daryn: 144.3 cm/sec 131.1 cm/sec 292.6 cm/sec 354.4 cm/sec MV A max daryn: MV P1/2t: 60.0 msec Ao max PG: AI max P.5 cm/sec MVA(P1/2t): 3.7 cm2 34.3 mmHg 50.2 mmHg MV E/A: 0.91 MV dec slope: Ao V2 mean: AI dec slope: 639.4 cm/sec2 209.0 cm/sec 200.2 cm/sec2 Ao mean PG: AI P1/2t: 19.9 mmHg 518.5 msec Ao V2 VTI: 64.8 cm MARY(I,D): 1.3 cm2 MARY(V,D): 1.2 cm2 LV V1 max PG: SV(LVOT): 82.2 ml PA V2 max: TR max daryn: 5.2 mmHg 81.4 cm/sec 236.2 cm/sec LV V1 mean PG: PA max PG: TR max P.0 mmHg 2.7 mmHg 22.3 mmHg LV V1 max: 114.1 cm/sec LV V1 mean: 82.8 cm/sec LV V1 VTI: 26.2 cm Left Ventricle The left ventricle is grossly normal size. There is mild concentric left ventricular hypertrophy. The left ventricular ejection fraction is normal. Doppler measurements suggest pseudonormalized left ventricular relaxation, which is associated with grade II/IV or mild to moderate diastolic dysfunction. Wall motion cannot be accurately commented on, but no definite regional wall motion abnormalities noted. Right Ventricle The right ventricle is grossly normal size. There is normal right ventricular wall thickness. The right ventricular systolic function is normal. Atria The right atrium is normal in size. The left atrium is mildly dilated. Interarterial septum not well visualized and not well dopplered. Cannot comment on ASD/PFO presence. Mitral Valve The mitral valve is grossly normal. There is no mitral valve stenosis. There is a mild amount of mitral regurgitation. Aortic Valve The aortic valve is mildly calcified. There is no aortic valve stenosis. There is a moderate amount of aortic regurgitation. Tricuspid Valve The tricuspid valve is not well visualized, but is grossly normal. There is no tricuspid stenosis. There is a trace to mild amount of tricuspid regurgitation. There is mild pulmonary hypertension by echo. Right ventricular systolic pressure is estimated to be elevated at 30-40mmHg. Pulmonic Valve The pulmonic valve is not well visualized. Great Vessels The aortic root is not well visualized but is probably normal size. The inferior vena cava appeared normal and decreased < 50% with respiration (RAP 10-15 mmHg). Effusions There is no pericardial effusion. : LEONARD SILVA > Candis Schofield
[2017-12-04] MEDS: NITROGLYCERIN 5 MG (0.2 MG/HR) PATCH.TD24 TD SCH (21:41)
[2017-12-04] MEDS: DIPHENHYDRAMINE HCL 25 MG CAPSULE PO PRN (22:52)
[2017-12-05] MEDS: HEPARIN SOD (PORCINE) 5,000 UNIT/ML 1 ML SYRINGE SUBCUT SCH ×2 (05:41→15:53)
[2017-12-05 06:21] LABS: ABSOLUTE EOSINOPHILS # (AUTO) 0.1 10^3/uL (0.0-0.6); ABSOLUTE LYMPHOCYTES (AUTO) 1.3 10^3/uL (0.5-4.7); ABSOLUTE MONOCYTES (AUTO) 0.6 10^3/uL (0.1-1.4); ABSOLUTE NEUT (AUTO) 3.8 10^3/uL (1.7-8.2); BASOPHILS % (AUTO) 0.3 % (0-2); EOSINOPHILS % (AUTO) 2.3 % (0-6); HEMATOCRIT 29.7 % (36.0-47.0); HEMOGLOBIN 10.3 g/dL (12.0-15.5); LYMPHOCYTES % (AUTO) 22.5 % (13-45); MEAN CORPUSCULAR HEMOGLOBIN 28.4 pg (27.0-33.4); MEAN CORPUSCULAR HGB CONC 34.8 g/dL (32.0-36.0); MEAN CORPUSCULAR VOLUME 81 fl (80-97); MONOCYTES % (AUTO) 9.8 % (3-13); PLATELET COUNT 147 10^3/uL (150-450); RED BLOOD COUNT 3.65 10^6/uL (3.72-5.28); RED CELL DISTRIBUTION WIDTH 13.5 % (11.5-14.0); SEGMENTED NEUTROPHILS % (AUTO) 65.1 % (42-78); TOTAL CELLS COUNTED % (AUTO) 100 %; WHITE BLOOD COUNT 5.9 10^3/uL (4.0-10.5)
[2017-12-05 06:40] LABS: ANION GAP 8 (5-19); BLOOD UREA NITROGEN 23 mg/dL (7-20); CALCIUM 9.1 mg/dL (8.4-10.2); CARBON DIOXIDE 31 mmol/L (22-30); CHLORIDE 100 mmol/L (98-107); GLUCOSE 156 mg/dL (75-110); POTASSIUM 3.5 mmol/L (3.6-5.0)
[2017-12-05] MEDS: OXYCODONE HCL IR 5 MG TABLET PO PRN ×3 (08:01→23:20)
--- NOTE | 2017-12-05 08:48 | RADIOLOGY REPORT (SQ) ---
EXAM DESCRIPTION: CHEST PA/LAT COMPLETED DATE/TIME: 12/05/2017 7:42 am REASON FOR STUDY: SOB COMPARISON: 12/03/2017. TECHNIQUE: Frontal and lateral radiographic views of the chest acquired. NUMBER OF VIEWS: Two view. LIMITATIONS: None. FINDINGS: LUNGS AND PLEURA: Best demonstrated on frontal view is patchy airspace disease in the righ t lung. Likely in the upper and lower lobes. Minimally nodular appearance. Left lung looks relativ maddi clear. MEDIASTINUM AND HILAR STRUCTURES: No masses or contour abnormalities. HEART AND VASCULAR STRUCTURES: Heart normal size. No evidence for failure. BONES: No acute findings. HARDWARE: None in the chest. OTHER: No other significant finding. IMPRESSION: Right lung opacities as above. On nonportable two-view chest performed today, slightly nodular configuration. This raises the possibility of underlying parenchymal nodules. Chest CT shou ld be considered. TECHNICAL DOCUMENTATION: JOB ID: [id number] [employer]- All Rights Reserved Reading location - IP/workstation name: [email or web address]
[2017-12-05] MEDS ORDERED: LISINOPRIL 5 MG TABLET PO SCH ×3 (10:00→15:26)
[2017-12-05] MEDS ORDERED: HYDROCHLOROTHIAZIDE 25 MG TABLET PO SCH (10:00)
[2017-12-05] MEDS ORDERED: NEBIVOLOL HCL 10 MG TABLET PO SCH (10:00)
[2017-12-05] MEDS: POTASSIUM CHLORIDE 10 MEQ TABLET.SA PO SCH ×2 (10:33→22:16)
[2017-12-05] MEDS: DOCUSATE SODIUM 100 MG CAPSULE PO SCH (10:33)
[2017-12-05] MEDS: ASPIRIN 81 MG TABLET, ENT COATED PO SCH (10:34)
[2017-12-05] MEDS: DIPHENHYDRAMINE HCL 25 MG CAPSULE PO PRN ×2 (10:34→23:20)
[2017-12-05] MEDS: METOLAZONE 2.5 MG TABLET PO SCH (10:34)
[2017-12-05] MEDS: CLONIDINE HCL 0.1 MG TABLET PO PRN (12:10)
--- NOTE | 2017-12-05 14:05 | RADIOLOGY REPORT (SQ) ---
EXAM DESCRIPTION: CT CHEST WITH COMPLETED DATE/TIME: 12/05/2017 1:42 pm REASON FOR STUDY: lung nodules COMPARISON: Chest x-ray dated 12/05/2017. TECHNIQUE: CT scan of the chest performed using helical scanning technique with dynamic intravenous contrast injection. Images reviewed with lung, soft tissue and bone windows. Reconstructed coronal and sagittal MPR images reviewed. All images stored on PACS. All CT scanners at this facility use dose modulation, iterative reconstruction, and/or weight based d osing when appropriate to reduce radiation dose to as low as reasonably achievable (ALARA). [facility]: Dose Right [facility]: CareDose [facility]: Dose Right [facility]: Teradose 4D [facility]: [employer] CONTRAST TYPE AND DOSE: contrast/concentration: Isovue 370.00 mg/ml; Total Contrast Delivered: 80.0 ml; Total Saline Delivered: 55.0 ml RENAL FUNCTION: BUN 23 creatinine 0.68. RADIATION DOSE: CT Rad equipment meets quality standard of care and radiation dose reduction techniq ues were employed. CTDIvol: 4.8 mGy. DLP: 170 mGy-cm. . LIMITATIONS: None. FINDINGS: LUNGS AND PLEURA: Multiple small ill-defined heterogenous airspace opacities scattered thr oughout the right lung. Left lung clear. No pleural effusion or pleural thickening. HILAR AND MEDIASTINAL STRUCTURES: Slightly enlarged lymph node anterior to the right mainstem bronchu s, measuring 1.1 x 1.4 cm. HEART AND VASCULAR STRUCTURES: No aneurysm or dissection. No central pulmonary emboli. No pericardi al effusion. HARDWARE: None in the chest. UPPER ABDOMEN: No significant findings. Limited exam. THYROID AND OTHER SOFT TISSUES: Large heterogenous mass in the left lobe of the thyroid measuring 3 x 3.8 cm. Coarse calcification in the right lobe. The upper portion of the thyroid is not included o n the images. No adenopathy. BONES: No significant finding. OTHER: No other significant finding. IMPRESSION: 1. MULTIPLE SMALL ILL-DEFINED HETEROGENOUS AIRSPACE OPACITIES SCATTERED THROUGHOUT THE RIGHT LUNG. T HIS MAY BE INFECTIOUS IN ETIOLOGY SECONDARY TO PNEUMONIA OR COULD BE INFLAMMATORY WITH PNEUMONITIS. 2. SLIGHTLY ENLARGED LYMPH NODE ANTERIOR TO THE RIGHT MAINSTEM BRONCHUS. NONSPECIFIC. 3. LARGE MASS IN THE LEFT LOBE OF THE THYROID, NOT FULLY IMAGED. RECOMMEND ULTRASOUND OF THE THYROID FOR FURTHER EVALUATION. TECHNICAL DOCUMENTATION: JOB ID: [id number] Quality ID # [id number]: Final reports with documentation of one or more dose reduction techniques (e.g., Au tomated exposure control, adjustment of the mA and/or kV according to patient size, use of iterative reconstruction technique) 2010 [employer]- All Rights Reserved Reading location - IP/workstation name: [email or web address]
--- NOTE | 2017-12-05 15:40 | PDOC PROGRESS REPORT ---
Subjective Progress Note for:: 12/05/17 Subjective:: She states her breathing feels much better. Patient still hypertensive. Rash on her left hand is improving. Patient requested to discharge. Reason For Visit: HTN URGENCY, HEART FAILURE Physical Exam Vital Signs: Temp Pulse Resp BP Pulse Ox 98.3 F 81 17 186/71 H 99 12/05/17 11:04 12/05/17 14:00 12/05/17 11:04 12/05/17 11:04 12/05/17 11:04 Intake & Output 12/04/17 12/05/17 12/06/17 06:59 06:59 06:59 Intake Total 205 Balance 205 Weight 56 kg General appearance: PRESENT: no acute distress, well-developed, well-nourished Head exam: PRESENT: normocephalic Eye exam: PRESENT: EOMI. ABSENT: scleral icterus Ear exam: PRESENT: normal external ear exam Mouth exam: PRESENT: moist Neck exam: ABSENT: carotid bruit, JVD, lymphadenopathy, thyromegaly Respiratory exam: PRESENT: clear to auscultation joshua. ABSENT: rales, rhonchi, wheezes Cardiovascular exam: PRESENT: RRR. ABSENT: diastolic murmur, rubs, systolic murmur Pulses: PRESENT: normal dorsalis pedis pul Vascular exam: PRESENT: normal capillary refill GI/Abdominal exam: PRESENT: normal bowel sounds, soft. ABSENT: distended, guarding, mass, organolmegaly, rebound, tenderness Rectal exam: PRESENT: deferred Extremities exam: PRESENT: full ROM. ABSENT: calf tenderness, clubbing, pedal edema Neurological exam: PRESENT: alert, awake, oriented to person, oriented to place , oriented to time, oriented to situation, CN II-XII grossly intact. ABSENT: motor sensory deficit Psychiatric exam: PRESENT: appropriate affect, normal mood. ABSENT: homicidal ideation, suicidal ideation Skin exam: PRESENT: dry, intact, rash - Rash on left hand, warm. ABSENT: cyanosis Results Laboratory Results: 12/05/17 05:44 12/05/17 05:44 12/04/17 12/05/17 12/05/17 15:35 05:44 05:44 WBC 5.9 RBC 3.65 L Hgb 10.3 L Hct 29.7 L MCV 81 MCH 28.4 MCHC 34.8 RDW 13.5 Plt Count 147 L Seg Neutrophils % 65.1 Lymphocytes % 22.5 Monocytes % 9.8 Eosinophils % 2.3 Basophils % 0.3 Absolute Neutrophils 3.8 Absolute Lymphocytes 1.3 Absolute Monocytes 0.6 Absolute Eosinophils 0.1 Absolute Basophils 0.0 Sodium 137.0 139.0 Potassium 3.7 3.5 L Chloride 100 100 Carbon Dioxide 30 31 H Anion Gap 7 8 BUN 24 H 23 H Creatinine 1.00 0.68 Est GFR ( Amer) > 60 > 60 Est GFR (Non-Af Amer) 58 L > 60 Glucose 209 H 156 H Calcium 9.3 9.1 Magnesium 1.7 12/04/17 12/04/17 12/04/17 02:25 02:25 15:35 Creatine Kinase 127 Cancelled CK-MB (CK-2) 1.08 Troponin I < 0.012 12/04/17 12/04/17 15:35 15:35 Creatine Kinase 78 CK-MB (CK-2) 0.78 Troponin I < 0.012 Impressions: Chest CT 12/05/17 00:00 IMPRESSION: 1. MULTIPLE SMALL ILL-DEFINED HETEROGENOUS AIRSPACE OPACITIES SCATTERED THROUGHOUT THE RIGHT LUNG. THIS MAY BE INFECTIOUS IN ETIOLOGY SECONDARY TO PNEUMONIA OR COULD BE INFLAMMATORY WITH PNEUMONITIS. 2. SLIGHTLY ENLARGED LYMPH NODE ANTERIOR TO THE RIGHT MAINSTEM BRONCHUS. NONSPECIFIC. 3. LARGE MASS IN THE LEFT LOBE OF THE THYROID, NOT FULLY IMAGED. RECOMMEND ULTRASOUND OF THE THYROID FOR FURTHER EVALUATION. Chest X-Ray 12/05/17 09:00 IMPRESSION: Right lung opacities as above. On nonportable two-view chest performed today, slightly nodular configuration. This raises the possibility of underlying parenchymal nodules. Chest CT should be considered. Assessment & Plan - Diagnosis (1) Hypertensive emergency Is this a current diagnosis for this admission?: Yes Plan: Presented with increased shortness of breath and pedal edema. Patient blood pressures were elevated. Patient was given IV Lopressor. Patient blood pressures are better controlled. Patient still on Bystolic. Lisinopril increased from 5-10 mg daily. She started on hydrochlorothiazide 25 mg p.o. daily. Patient may need further adjustment on her blood pressure medications. (2) Bilateral lower extremity edema Is this a current diagnosis for this admission?: Yes Plan: Improved with diuretics. (3) Diabetes Qualifiers: Diabetes mellitus type: type 2 Is this a current diagnosis for this admission?: Yes Plan: Controlled diabetes. Patient hemoglobin A1c is 12. Will offer patient diabetic teaching. (4) Rash Plan: Patient has a rash on her left arm uncertain of the cause. Improved with Benadryl. (5) Diastolic heart failure Qualifiers: Heart failure chronicity: acute Qualified Code(s): I50.31 - Acute diastolic (congestive) heart failure Is this a current diagnosis for this admission?: Yes Plan: Patient with grade 2 diastolic heart failure. Most likely secondary to her uncontrolled hypertension. She appears euvolemic now. Patient transitioned to hydrochlorothiazide. Patient still on beta-lily. Continue on lisinopril. (6) Abnormal CT scan, chest Is this a current diagnosis for this admission?: Yes Plan: Abnormal CT scan of chest. Will consult pulmonary for further recommendation. (7) Thyroid mass Is this a current diagnosis for this admission?: Yes Plan: CT scan shows a possible thyroid mass. Will order ultrasound of her thyroid. Patient thyroid studies are normal. - Time Time Spent with patient: 15-24 minutes Anticipated discharge: Home Within: within 24 hours - Inpatient Certification Medical Necessity: Significant Comorbidiites Make Outpatient Treatment Too Risky , Need Close Monitoring Due to Risk of Patient Decompensation
[2017-12-05] MEDS: INSULIN LISPRO 100 UNIT/ML 3 ML VIAL SUBCUT PRN ×2 (17:16→22:17)
[2017-12-05] MEDS ORDERED: INSULIN GLARGINE,HUM.REC.ANLOG 1,000 UNIT/10 ML UNIT SUBCUT SCH (22:00)
[2017-12-05] MEDS: NITROGLYCERIN 5 MG (0.2 MG/HR) PATCH.TD24 TD SCH (22:16)
[2017-12-06] MEDS ORDERED: HYDRALAZINE HCL INJ/PF 20 MG/1 ML SDV ONE (00:30)
[2017-12-06] MEDS ORDERED: HYDRALAZINE HCL INJ/PF 20 MG/1 ML SDV IV PRN (00:34)
[2017-12-06] MEDS ORDERED: HYDRALAZINE HCL INJ/PF 20 MG/1 ML SDV IV ONE (01:45)
[2017-12-06] MEDS: CLONIDINE HCL 0.1 MG TABLET PO PRN (02:41)
[2017-12-06] MEDS: OXYCODONE HCL IR 5 MG TABLET PO PRN ×3 (03:35→16:05)
[2017-12-06] MEDS: PROMETHAZINE HCL INJ 25 MG/1 ML VIAL IV PRN ×2 (06:01→10:08)
[2017-12-06] MEDS ORDERED: LABETALOL HCL INJ 20 MG/4 ML DISP.SYRIN IV ONE (09:00)
[2017-12-06] MEDS: POTASSIUM CHLORIDE 10 MEQ TABLET.SA PO SCH (09:42)
[2017-12-06] MEDS: DOCUSATE SODIUM 100 MG CAPSULE PO SCH (09:42)
[2017-12-06] MEDS: METOLAZONE 2.5 MG TABLET PO SCH (09:42)
[2017-12-06] MEDS ORDERED: ASPIRIN 81 MG TABLET, ENT COATED PO SCH (10:00)
[2017-12-06] MEDS ORDERED: LISINOPRIL 10 MG TABLET PO SCH ×3 (10:00)
[2017-12-06] MEDS ORDERED: ISOSORBIDE MONONITRATE 30 MG TAB.ER.24H PO SCH (10:00)
[2017-12-06] MEDS ORDERED: HYDROCHLOROTHIAZIDE 25 MG TABLET PO SCH (10:00)
[2017-12-06] MEDS ORDERED: AMLODIPINE BESYLATE 5 MG TABLET PO SCH ×2 (10:00→12:11)
[2017-12-06] MEDS ORDERED: NEBIVOLOL HCL 10 MG TABLET PO SCH (10:00)
[2017-12-06 15:36] VITALS: BP 164/60
--- NOTE | 2017-12-06 17:43 | PDOC DISCHARGE SUMMARY ---
General - Admit/Disc Date/PCP Admission Date/Primary Care Provider: 12/03/17 22:52 Discharge Date: 12/06/17 - Discharge Diagnosis (1) Hypertensive emergency Is this a current diagnosis for this admission?: Yes (2) Bilateral lower extremity edema Is this a current diagnosis for this admission?: Yes (3) Diabetes Is this a current diagnosis for this admission?: Yes (5) Diastolic heart failure Is this a current diagnosis for this admission?: Yes (6) Abnormal CT scan, chest Is this a current diagnosis for this admission?: Yes (7) Thyroid mass Is this a current diagnosis for this admission?: Yes - Additional Information Resuscitation Status: Full Code Discharge Diet: Cardiac, Diabetic Discharge Activity: Walk Frequently Prescriptions: Amlodipine Besylate [Norvasc 10 mg Tablet] 10 mg PO DAILY 30 Days #30 tablet Lisinopril/Hydrochlorothiazide [Lisinopril-Hctz 20-25 mg Tab] 1 each PO BID 30 Days #60 tablet Nebivolol HCl [Bystolic] 20 mg PO DAILY 30 Days #30 tablet Potassium Chloride 20 meq PO DAILY 30 Days #30 tab.er.prt Home Medications: Atorvastatin Calcium [Lipitor 40 mg Tablet] 40 mg PO DAILY 12/04/17 Cyclobenzaprine HCl [Flexeril 10 mg Tablet] 10 mg PO Q8HP PRN 12/04/17 Gabapentin [Neurontin 300 mg Capsule] 300 mg PO Q8 12/04/17 Hydrocodone/Acetaminophen [Hydrocodone-Acetamin 10-325 mg] 1 tab PO Q6HP PRN 03/18 Meloxicam [Mobic] 15 mg PO DAILY 12/04/17 Metoclopramide HCl [Reglan 10 mg Tablet] 10 mg PO Q6HP PRN 12/04/17 Omeprazole 40 mg PO DAILY 12/04/17 Amlodipine Besylate [Norvasc 10 mg Tablet] 10 mg PO DAILY 30 Days #30 tablet 05/18 Aspirin [Ecotrin 81 mg EC Tablet] 81 mg PO DAILY tabec 12/06/17 Lisinopril/Hydrochlorothiazide [Lisinopril-Hctz 20-25 mg Tab] 1 each PO BID 30 Days #60 tablet 12/06/17 Nebivolol HCl [Bystolic] 20 mg PO DAILY 30 Days #30 tablet 12/06/17 Potassium Chloride 20 meq PO DAILY 30 Days #30 tab.er.prt 12/06/17 History of Present Illness History of Present Illness: JASMIN MURDOCK is a 57 year old female with a past medical history of hypertension and diabetes. She presents with a 20 pound weight gain in 3 weeks , shortness of breath with exertion and uncontrolled blood pressure. In the emergency room her blood pressure is 190/115. She is ordered IV Lasix and referred to the hospitalist for admission. She denies chest pain, change in medications or diet. Original H&P dictated by Dr. Tavarez. Hospital Course Hospital Course: Patient presented with hypertensive emergency. Patient on multiple blood pressure medications. Patient has had hypertension since she was in her 20s. Patient was initially started on lisinopril and Bystolic. Patient was receiving aggressive diuresis with Lasix and metolazone as she had gained 20 pounds. Patient was found to have grade 2 diastolic heart failure on cardiac echo. Patient blood pressures were fairly well controlled. Patient did have episode of hypertensive emergency last night with blood pressure sitting up to 200 and patient becoming nauseated and vomiting. Patient started on her home medications with a little bit of adjustment. Patient is on lisinopril hydrochlorothiazide 2024 twice daily, Bystolic was increased to 20 mg daily and Norvasc increased to 10 mg daily. Patient also developed a rash on her left hand. Uncertain of the cause. Did improve with Benadryl. Patient also has type 2 diabetes that is not controlled. Patient with globin A1c is 12. Patient was offered diabetic teaching. Patient was treated with sliding scale insulin. Patient has a history of chronic pain. Patient had a injury to her left leg that results in her having chronic pain. Patient is on Vicodin 10/[address]. Patient has abnormal CT chest. Patient did have some scattered airspace opacities in the right lung. Patient did have flu some weeks ago. Patient also has a goiter which was noted in the thyroid. Physical Exam Vital Signs: Temp Pulse Resp BP Pulse Ox 98.5 F 98 14 164/60 H 97 12/06/17 15:33 12/06/17 15:33 12/06/17 15:33 12/06/17 15:33 12/06/17 15:33 Intake & Output 12/05/17 12/06/17 12/07/17 06:59 06:59 06:59 Intake Total 205 826 Balance 205 826 Weight 56 kg 56.9 kg General appearance: PRESENT: no acute distress, well-developed, well-nourished Head exam: PRESENT: atraumatic, normocephalic Eye exam: PRESENT: conjunctiva pink, EOMI, PERRLA. ABSENT: scleral icterus Ear exam: PRESENT: normal external ear exam Mouth exam: PRESENT: moist, tongue midline Neck exam: ABSENT: carotid bruit, JVD, lymphadenopathy, thyromegaly Respiratory exam: PRESENT: clear to auscultation joshua. ABSENT: rales, rhonchi, wheezes Cardiovascular exam: PRESENT: RRR. ABSENT: diastolic murmur, rubs, systolic murmur Pulses: PRESENT: normal dorsalis pedis pul Vascular exam: PRESENT: normal capillary refill GI/Abdominal exam: PRESENT: normal bowel sounds, soft. ABSENT: distended, guarding, mass, organolmegaly, rebound, tenderness Rectal exam: PRESENT: deferred Extremities exam: PRESENT: full ROM. ABSENT: calf tenderness, clubbing, pedal edema Neurological exam: PRESENT: alert, awake, oriented to person, oriented to place , oriented to time, oriented to situation, CN II-XII grossly intact. ABSENT: motor sensory deficit Psychiatric exam: PRESENT: appropriate affect, flat affect. ABSENT: homicidal ideation, suicidal ideation Skin exam: PRESENT: dry, intact, warm. ABSENT: cyanosis, rash Results Laboratory Results: 12/05/17 05:44 12/05/17 05:44 12/04/17 12/04/17 12/04/17 02:25 02:25 15:35 Creatine Kinase 127 Cancelled CK-MB (CK-2) 1.08 Troponin I < 0.012 12/04/17 12/04/17 15:35 15:35 Creatine Kinase 78 CK-MB (CK-2) 0.78 Troponin I < 0.012 Impressions: Chest CT 12/05/17 00:00 IMPRESSION: 1. MULTIPLE SMALL ILL-DEFINED HETEROGENOUS AIRSPACE OPACITIES SCATTERED THROUGHOUT THE RIGHT LUNG. THIS MAY BE INFECTIOUS IN ETIOLOGY SECONDARY TO PNEUMONIA OR COULD BE INFLAMMATORY WITH PNEUMONITIS. 2. SLIGHTLY ENLARGED LYMPH NODE ANTERIOR TO THE RIGHT MAINSTEM BRONCHUS. NONSPECIFIC. 3. LARGE MASS IN THE LEFT LOBE OF THE THYROID, NOT FULLY IMAGED. RECOMMEND ULTRASOUND OF THE THYROID FOR FURTHER EVALUATION. Chest X-Ray 12/05/17 09:00 IMPRESSION: Right lung opacities as above. On nonportable two-view chest performed today, slightly nodular configuration. This raises the possibility of underlying parenchymal nodules. Chest CT should be considered. Qualifiers - * PATEINT BEING DISCHARGED WITH ANY OF THE FOLLOWING DIAGNOSIS?: No Plan Discharge Plan: She is discharged with adjusted blood pressures. Patient blood pressures is in the 160s which is appropriate for somebody who presented with blood pressures in the 200s. Patient blood pressure medications were adjusted. Patient is to follow-up with her PCP on discharge for further adjustment of her medications. Patient should continue with a low-sodium diet. Patient will also need adequate diabetic control. Also discussed with patient about swelling in her lower extremities. Patient states she consists swelling her left lower extremity more due to a previous accident. Explained to her that if it is extremely tender and the swelling does not improve by elevating the legs and she had traveled for recently that she should be concerned for deep vein thrombosis. Time Spent: Greater than 30 Minutes
== END 2017-12-06 17:37 | disposition home or self-care (01) | DRG 304 ==
LOC: ER 19:31 → EH 22:52 → 4N 12-04 13:44
PROVIDERS: ADMIT Internal Medicine; ATTEND Internal Medicine
DX: I16.0 Hypertensive urgency (principal); I50.31 Acute diastolic (congestive) heart failure; I11.0 Hypertensive heart disease with heart failure; E11.9 Type 2 diabetes mellitus without complications; K21.9 Gastro-esophageal reflux disease without esophagitis; R21 Rash and other nonspecific skin eruption; E07.89 Other specified disorders of thyroid
CPT/HCPCS: 36415; 71045; 71046; 71260; 80048; 80053; 81001; 82550; 82553; 82962; 83036; 83735; 83880; 84439; 84443; 84481; 84484; 85025; 93005; 93010; 93306; 99285; J0360; J1644; J1815; J1940; J2550; J3490; J7512

== ENCOUNTER 2018-05-09 18:50 | Inpatient (IN) | payer OTHER ==
[2018-05-09 20:24] LABS: ABSOLUTE BASOPHILS # (AUTO) 0.1 10^3/uL (0.0-0.2); ABSOLUTE EOSINOPHILS # (AUTO) 0.1 10^3/uL (0.0-0.6); ABSOLUTE LYMPHOCYTES (AUTO) 1.2 10^3/uL (0.5-4.7); ABSOLUTE MONOCYTES (AUTO) 0.7 10^3/uL (0.1-1.4); ABSOLUTE NEUT (AUTO) 6.8 10^3/uL (1.7-8.2); BASOPHILS % (AUTO) 0.6 % (0-2); EOSINOPHILS % (AUTO) 1.3 % (0-6); HEMATOCRIT 29.4 % (36.0-47.0); LYMPHOCYTES % (AUTO) 13.4 % (13-45); MEAN CORPUSCULAR HEMOGLOBIN 28.1 pg (27.0-33.4); MEAN CORPUSCULAR VOLUME 83 fl (80-97); MONOCYTES % (AUTO) 7.8 % (3-13); PLATELET COUNT 192 10^3/uL (150-450); RED BLOOD COUNT 3.56 10^6/uL (3.72-5.28); RED CELL DISTRIBUTION WIDTH 13.9 % (11.5-14.0); SEGMENTED NEUTROPHILS % (AUTO) 76.9 % (42-78); TOTAL CELLS COUNTED % (AUTO) 100 %; WHITE BLOOD COUNT 8.8 10^3/uL (4.0-10.5)
[2018-05-09 20:39] LABS: APPEARANCE,URINE CLEAR; BILIRUBIN,URINE NEGATIVE (NEGATIVE); COLOR,URINE YELLOW; GLUCOSE, URINE NEGATIVE (NEGATIVE); KETONES,URINE NEGATIVE (NEGATIVE); LEUKOCYTE ESTERASE,URINE SMALL (NEGATIVE); NITRITE,URINE NEGATIVE (NEGATIVE); PROTEIN,URINE 100 mg/dL (NEGATIVE); URINE SPECIFIC GRAVITY 1.009; UROBILINOGEN,URINE NEGATIVE mg/dL (<2.0)
[2018-05-09 20:47] LABS: ALANINE AMINOTRANSFERASE 38 U/L (9-52); ALBUMIN 2.9 g/dL (3.5-5.0); ALKALINE PHOSPHATASE 255 U/L (38-126); ANION GAP 8 (5-19); ASPARTATE AMINO TRANSFERASE 19 U/L (14-36); BILIRUBIN,DIRECT 0.3 mg/dL (0.0-0.4); BILIRUBIN,TOTAL 0.4 mg/dL (0.2-1.3); BLOOD UREA NITROGEN 35 mg/dL (7-20); CALCIUM 8.5 mg/dL (8.4-10.2); CARBON DIOXIDE 30 mmol/L (22-30); CHLORIDE 100 mmol/L (98-107); GLUCOSE 199 mg/dL (75-110); LIPASE 37.1 U/L (23-300); SODIUM 138.4 mmol/L (137-145); TOTAL PROTEIN 5.6 g/dL (6.3-8.2)
[2018-05-09] MEDS ORDERED: ASPIRIN 81 MG TABLET, CHEWABLE PO ONE (22:20)
[2018-05-09 22:54] LABS: CREATINE KINASE MB 1.43 ng/mL (<4.55); NT PRO BNP 5200 pg/mL (5-900)
[2018-05-09 22:56] LABS: TROPONIN I < 0.012 ng/mL
--- NOTE | 2018-05-09 23:38 | RADIOLOGY REPORT (SQ) ---
EXAM DESCRIPTION: XR CHEST 1 VIEW COMPLETED DATE/TME: 05/09/2018 22:20 CLINICAL HISTORY: chest pain/sob COMPARISON: 12/25/2017 FINDINGS: Single frontal view of the chest. The cardiomediastinal silhouette has normal size and contour. Chronic appearing bilateral interstitial opacities. Bilateral moderate pleural effusions. No pneumothorax. No acute osseous abnormalities. Postoperative change of the right upper abdomen. IMPRESSION: 1. Moderate bilateral pleural effusions. 2. Chronic appearing interstitial opacities identified. Superimposed acute interstitial pneumonic process is also a possibility.
[2018-05-10] MEDS ORDERED: FUROSEMIDE INJ/PF 40 MG/4 ML SDV IV ONE (02:47)
--- NOTE | 2018-05-10 05:04 | ER Document Report ---
ED General - General Chief Complaint: Breathing Difficulty Stated Complaint: ABDOMINAL PAIN,SWELLING,LEG PAIN Time Seen by Provider: 05/09/18 22:14 TRAVEL OUTSIDE OF THE [place] IN LAST 30 DAYS: No - HPI Patient complains to provider of: Bilateral leg swelling shortness of breath Notes: Patient coming in for evaluation bilateral leg swelling shortness of breath. 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 Patient states she has been compliant with her diuretics and other medications. Patient states she also has gained 27 pounds since last visit here. Patient also states she has been watching her fluid intake along with her salt intake. Patient denies any fevers chills nausea vomiting diarrhea denies any cough. Mom placed the patient on monitors found to be hypoxic requiring oxygen approximately 4-5 L. - Related Data Allergies/Adverse Reactions: metaxalone [From Skelaxin] Allergy (Verified 05/09/18 18:51) metformin Allergy (Verified 05/09/18 18:51) Past Medical History - Social History Smoking Status: Never Smoker Chew tobacco use (# tins/day): No Frequency of alcohol use: Occasional Drug Abuse: None Family History: CAD, Hypertension Patient has suicidal ideation: No Patient has homicidal ideation: No - Past Medical History Cardiac Medical History: Reports: Hx Hypertension, Hx Heart Murmur Denies: Hx Atrial Fibrillation Endocrine Medical History: Reports: Hx Diabetes Mellitus Type 2 Renal/ Medical History: Denies: Hx Peritoneal Dialysis GI Medical History: Reports: Hx Gastroesophageal Reflux Disease Past Surgical History: Reports: Hx Abdominal Surgery, Hx Cholecystectomy, Hx Orthopedic Surgery - back x3, Hx Tonsillectomy, Hx Tubal Ligation Review of Systems - Review of Systems Constitutional: No symptoms reported EENT: No symptoms reported Cardiovascular: No symptoms reported Respiratory: Short of breath Gastrointestinal: No symptoms reported Genitourinary: No symptoms reported Female Genitourinary: No symptoms reported Musculoskeletal: No symptoms reported Skin: No symptoms reported Hematologic/Lymphatic: No symptoms reported Neurological/Psychological: No symptoms reported -: Yes All other systems reviewed and negative Physical Exam - Vital signs Vitals: Temp Pulse Resp BP Pulse Ox 98.9 F 79 20 124/54 L 94 05/09/18 19:06 05/09/18 19:06 05/09/18 19:06 05/09/18 19:06 05/09/18 19:06 Interpretation: Hypoxic - General General appearance: Appears well, Alert - HEENT Head: Normocephalic, Atraumatic Eyes: Normal Pupils: PERRL - Respiratory Respiratory status: No respiratory distress Chest status: Nontender Breath sounds: Rhonchi Chest palpation: Normal - Cardiovascular Rhythm: Regular Heart sounds: Normal auscultation Murmur: No - Abdominal Inspection: Normal Distension: No distension Bowel sounds: Normal Tenderness: Nontender Organomegaly: No organomegaly - Back Back: Normal, Nontender - Extremities General upper extremity: Normal inspection, Nontender, Normal color, Normal ROM , Normal temperature General lower extremity: Normal inspection, Nontender, Edema - Edema right greater than left, Normal color, Normal ROM, Normal temperature, Normal weight bearing. No: David's sign - Neurological Neuro grossly intact: Yes Cognition: Normal Orientation: AAOx4 Anu Coma Scale Eye Opening: Spontaneous [place] Coma Scale Verbal: Oriented [place] Coma Scale Motor: Obeys Commands [place] Coma Scale Total: 15 Speech: Normal Motor strength normal: LUE, RUE, LLE, RLE Sensory: Normal - Psychological Associated symptoms: Normal affect, Normal mood - Skin Skin Temperature: Warm Skin Moisture: Dry Skin Color: Normal Course - Re-evaluation Re-evalutation: 05/10/18 06:08 Patient bilateral pleural effusions hypoxia requiring oxygen increase in BNP. Decision Betapace placed on BiPAP also will start diuresing the patient. Patient's case was discussed with the hospitalist with a bit for further evaluation. - Vital Signs Vital signs: Temp Pulse Resp BP Pulse Ox 99.1 F 89 13 155/73 H 96 05/10/18 01:30 05/10/18 01:30 05/10/18 04:31 05/10/18 04:31 05/10/18 04:31 - Laboratory Result Diagrams: 05/09/18 20:00 05/09/18 20:00 Laboratory results interpreted by me: 05/09/18 05/09/18 05/09/18 20:00 20:00 20:00 RBC 3.56 L Hgb 10.0 L Hct 29.4 L BUN 35 H Creatinine 1.33 H Est GFR ( Amer) 50 L Est GFR (Non-Af Amer) 41 L Glucose 199 H Alkaline Phosphatase 255 H Creatine Kinase NT-Pro-B Natriuret Pep Total Protein 5.6 L Albumin 2.9 L Urine Protein 100 H Urine Blood SMALL H Ur Leukocyte Esterase SMALL H 05/09/18 05/09/18 20:00 20:00 RBC Hgb Hct BUN Creatinine Est GFR ( Amer) Est GFR (Non-Af Amer) Glucose Alkaline Phosphatase Creatine Kinase 164 H NT-Pro-B Natriuret Pep 5200 H Total Protein Albumin Urine Protein Urine Blood Ur Leukocyte Esterase Critical Care Note - Critical Care Note Total time excluding time spent on procedures (mins): 35 Comments: Multiple evaluations for shortness of breath Discharge - Discharge Clinical Impression: Hypoxia, Bilateral pleural effusion Volume overload Qualifiers: Hypervolemia type: unspecified Qualified Code(s): E87.70 - Fluid overload, unspecified Congestive heart failure Qualifiers: Heart failure type: other Qualified Code(s): I50.9 - Heart failure, unspecified Diabetes Qualifiers: Diabetes mellitus complication status: without complication Condition: Good Disposition: ADMITTED INPATIENT Admitting Provider: Hospitalist - [facility] Admitted: [facility]
[2018-05-10] MEDS ORDERED: GLUCAGON,HUMAN RECOMB 1 MG INJ SUBCUT PRN (05:25)
[2018-05-10] MEDS ORDERED: PROMETHAZINE HCL INJ 25 MG/1 ML VIAL IV PRN (05:25)
[2018-05-10] MEDS ORDERED: DEXTROSE 50%-WATER 25 GM/50 ML DISP.SYRIN IV PRN ×4 (05:25→06:20)
[2018-05-10] MEDS ORDERED: DEXTROSE 40% GEL 15 GM TUBE PO PRN ×4 (05:25→06:20)
[2018-05-10] MEDS ORDERED: GLUCAGON,HUMAN RECOMB 1 MG INJ IM PRN (06:20)
--- NOTE | 2018-05-10 06:29 | PDOC H&P ---
History of Present Illness Admission Date/PCP: 05/10/18 05:14 AJITH JONES MD Patient complains of: Shortness of breath History of Present Illness: JASMIN MURDOCK is a 58 year old female with chronic diastolic CHF as per last echocardiogram on November 2017. Comes to the emergency department complaining of shortness of breath that is started at 3 in the morning 1 day ago, associated with wheezing, cough with clear sputum, chest tightness. For than a week she is having progressive lower extremities edema and her weight has increased 27 pounds in less than 2 weeks. She feels that her swelling goes up to her abdomen with tightness. 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 Mcclendon and last her Lasix was increased from 60 mg twice a day to 80 mg twice a day unsuccessfully. Denies fever, chills, nausea, vomiting. In the emergency department given 40 mg of IV Lasix. Blood pressure 190/115. Initial oxygen saturation 89%, patient was initiated on BiPAP. Past Medical History Cardiac Medical History: Reports: Hypertension, Heart Murmur Denies: Atrial Fibrillation Endocrine Medical History: Reports: Diabetes Mellitus Type 2 GI Medical History: Reports: Gastroesophageal Reflux Disease Past Surgical History Past Surgical History: Reports: Cholecystectomy, Orthopedic Surgery - back x3, Tonsillectomy, Tubal Ligation Social History Smoking Status: Never Smoker Frequency of Alcohol Use: None Hx Recreational Drug Use: No Drugs: None Hx Prescription Drug Abuse: No Family History Family History: CAD, Hypertension Parental Family History Reviewed: No Children Family History Reviewed: NA Sibling(s) Family History Reviewed.: NA Medication/Allergy Home Medications: Atorvastatin Calcium [Lipitor 40 mg Tablet] 40 mg PO DAILY 12/04/17 Cyclobenzaprine HCl [Flexeril 10 mg Tablet] 10 mg PO Q8HP PRN 12/04/17 Gabapentin [Neurontin 300 mg Capsule] 300 mg PO Q8 12/04/17 Hydrocodone/Acetaminophen [Hydrocodone-Acetamin 10-325 mg] 1 tab PO Q6HP PRN 03/18 Meloxicam [Mobic] 15 mg PO DAILY 12/04/17 Metoclopramide HCl [Reglan 10 mg Tablet] 10 mg PO Q6HP PRN 12/04/17 Omeprazole 40 mg PO DAILY 12/04/17 Amlodipine Besylate [Norvasc 10 mg Tablet] 10 mg PO DAILY 30 Days #30 tablet 05/18 Aspirin [Ecotrin 81 mg EC Tablet] 81 mg PO DAILY tabec 12/06/17 Lisinopril/Hydrochlorothiazide [Lisinopril-Hctz 20-25 mg Tab] 1 each PO BID 30 Days #60 tablet 12/06/17 Nebivolol HCl [Bystolic] 20 mg PO DAILY 30 Days #30 tablet 12/06/17 Potassium Chloride 20 meq PO DAILY 30 Days #30 tab.er.prt 12/06/17 Allergies/Adverse Reactions: metaxalone [From Skelaxin] Allergy (Verified 05/09/18 18:51) metformin Allergy (Verified 05/09/18 18:51) Review of Systems Review of Systems: As outlined in the HPI, all others negative Physical Exam Vital Signs: Temp Pulse Resp BP Pulse Ox 99.1 F 89 13 155/73 H 96 05/10/18 01:30 05/10/18 01:30 05/10/18 04:31 05/10/18 04:31 05/10/18 04:31 Additional comments: General appearance: Well-developed, well-nourished, alert and cooperative, and appears to be in no acute distress. Currently wearing BiPAP. Head: Normocephalic Eyes: PEERL, EOMI, vision is grossly intact. Ears: External auditory canal and tympanic membranes clear, hearing grossly intact. Nose: No nasal discharge. Throat: Oral cavity and pharynx normal. No inflammation, swelling, exudate or lesions. Neck: Neck supple, nontender without lymphadenopathy, masses or thyromegaly. Cardiac: Normal S1 and S2. No S3, S4 or murmurs. Rhythm is regular. There is 3plus peripheral edema, cyanosis or pallor. Extremities are warm and well perfused. Capillary refill is less than 2 seconds. No carotid bruits. Lungs: Clear to auscultation and percussion with basilar crackles, do not appreciate rhonchi or wheezing. Not using accessory muscles. Abdomen: Positive bowel sounds. Soft. Nondistended, nontender. No guarding or rebound. No masses. Mild edema Extremities: No significant deformity or joint abnormality. 3+ pitting edema, peripheral pulses intact. No varicosities. Neurological: Cranial nerves II through XII grossly intact. Strength and sensation symmetric and intact throughout. Reflexes 2+ throughout. Skin: Skin normal color, texture and turgor with no lesions or eruptions, warm and dry. Psychiatric: The mental examination revealed the patient was oriented to person , place, and time. The patient was able to demonstrate good judgment on recent , without hallucinations, abnormal affect or abnormal behaviors. Results Laboratory Results: 11/08/17 05/09/18 05/09/18 12:45 20:00 20:00 WBC 8.8 RBC 3.56 L Hgb 10.0 L Hct 29.4 L MCV 83 MCH 28.1 MCHC 34.0 RDW 13.9 Plt Count 192 Seg Neutrophils % 76.9 Lymphocytes % 13.4 Monocytes % 7.8 Eosinophils % 1.3 Basophils % 0.6 Absolute Neutrophils 6.8 Absolute Lymphocytes 1.2 Absolute Monocytes 0.7 Absolute Eosinophils 0.1 Absolute Basophils 0.1 VBG pH 7.38 VBG pCO2 44.0 VBG HCO3 25.4 Sodium 138.4 Potassium 5.0 Chloride 100 Carbon Dioxide 30 Anion Gap 8 BUN 35 H Creatinine 1.33 H Est GFR ( Amer) 50 L Est GFR (Non-Af Amer) 41 L Glucose 199 H Calcium 8.5 Total Bilirubin 0.4 Direct Bilirubin 0.3 AST 19 ALT 38 Alkaline Phosphatase 255 H Creatine Kinase Troponin I NT-Pro-B Natriuret Pep Total Protein 5.6 L Albumin 2.9 L Lipase 37.1 05/09/18 05/09/18 05/10/18 20:00 20:00 02:45 WBC RBC Hgb Hct MCV MCH MCHC RDW Plt Count Seg Neutrophils % Lymphocytes % Monocytes % Eosinophils % Basophils % Absolute Neutrophils Absolute Lymphocytes Absolute Monocytes Absolute Eosinophils Absolute Basophils VBG pH VBG pCO2 VBG HCO3 Sodium Potassium Chloride Carbon Dioxide Anion Gap BUN Creatinine Est GFR ( Amer) Est GFR (Non-Af Amer) Glucose Calcium Total Bilirubin Direct Bilirubin AST ALT Alkaline Phosphatase Creatine Kinase 164 H Troponin I < 0.012 < 0.012 NT-Pro-B Natriuret Pep 5200 H Total Protein Albumin Lipase Impressions: Chest X-Ray 05/09/18 22:20 IMPRESSION: 1. Moderate bilateral pleural effusions. 2. Chronic appearing interstitial opacities identified. Superimposed acute interstitial pneumonic process is also a possibility. Assessment & Plan - Diagnosis (1) Acute respiratory failure with hypoxia Is this a current diagnosis for this admission?: Yes Plan: Chin came on respiratory distress, oxygen saturation 89%, was initiated on BiPAP (2) Acute on chronic diastolic (congestive) heart failure Is this a current diagnosis for this admission?: Yes Plan: As per her last echocardiogram on November 2017, chronic diastolic CHF. Her symptoms has been worsening since the last 2 weeks with finally shortness of breath yesterday before admission. Severe lower extremities edema and I would say anasarca. Lasix has been increased last from 60 mg every 12-80 mg every 12 unsuccessfully. I will continue with 40 mg IV Lasix every 12 hours. Cardiology evaluation with Dr. Schofield. Input and output every 8 hours. Daily weights. Legs elevation. Telemetry monitoring. Cardiac markers 3. BNP 5200 and chest x-ray with bilateral pleural effusions. (3) Acute renal failure Is this a current diagnosis for this admission?: Yes Plan: Patient tells me that follows with nephrology [place], her renal function seems to be stage III-IV, this can be cardiorenal. Improved after diuresis. If not I would recommend a renal failure workup. Avoid nephrotoxic drugs. Patient request her nephrology in business hours. (4) Hypertensive urgency Is this a current diagnosis for this admission?: Yes Plan: Initial blood pressure 190/115, likely multifactorial, after placed on BiPAP and given IV Lasix her blood pressure came down to 150s over 70s. Resume her home antihypertensive medication. (5) Diabetes mellitus type 2 in obese Is this a current diagnosis for this admission?: Yes Plan: Accu-Cheks q. before meals and at bedtime, insulin lispro sliding scale and hypoglycemia protocol. - Time Time Spent: 30 to 50 Minutes - Inpatient Certification Medical Necessity: Risk of Complication if Not Cared For in Hospital
[2018-05-10] MEDS: HEPARIN SOD (PORCINE) 5,000 UNIT/ML 1 ML SYRINGE SUBCUT SCH ×3 (06:41→21:34)
[2018-05-10] MEDS ORDERED: HYDROCODONE/ACETAMINOPHEN 10-325 MG TABLET PO ONE (09:03)
--- NOTE | 2018-05-10 09:55 | EKG REPORT ---
SEVERITY:- ABNORMAL ECG - SINUS RHYTHM VENTRICULAR PREMATURE COMPLEX LOW VOLTAGE THROUGHOUT CONSIDER ANTEROSEPTAL INFARCT : Confirmed by: Kady Villasenor MD 10-May-2018 09:54:32
[2018-05-10] MEDS: FUROSEMIDE INJ/PF 40 MG/4 ML SDV IV SCH ×2 (10:03→21:32)
[2018-05-10 10:48] LABS: APPEARANCE,URINE CLEAR; BILIRUBIN,URINE NEGATIVE (NEGATIVE); COLOR,URINE STRAW; GLUCOSE, URINE 50 mg/dL (NEGATIVE); KETONES,URINE NEGATIVE (NEGATIVE); LEUKOCYTE ESTERASE,URINE SMALL (NEGATIVE); NITRITE,URINE NEGATIVE (NEGATIVE); PROTEIN,URINE 100 mg/dL (NEGATIVE); URINE SPECIFIC GRAVITY 1.008; UROBILINOGEN,URINE NEGATIVE mg/dL (<2.0)
[2018-05-10 11:00] LABS: URINE AMPHETAMINES SCREEN NEGATIVE; URINE BARBITURATES SCREEN NEGATIVE; URINE BENZODIAZEPINES SCREEN NEGATIVE; URINE COCAINE SCREEN NEGATIVE; URINE MARIJUANA (THC) SCREEN NEGATIVE; URINE METHADONE SCREEN NEGATIVE; URINE PHENCYCLIDINE SCREEN NEGATIVE
[2018-05-10] MEDS ORDERED: (PENDING PHARMACY ID) (Ondansetron Hcl [Zofran 4 Mg Tablet] 4 MG) PO PRN (16:44)
[2018-05-10] MEDS ORDERED: IPRATROPIUM BROMIDE 0.06% NASAL SPRAY 15 ML NASL PRN (16:44)
[2018-05-10] MEDS ORDERED: (PENDING PHARMACY ID) (Lisinopril [Zestril] 40 MG) PO SCH (16:45)
[2018-05-10] MEDS ORDERED: (PENDING PHARMACY ID) (Nebivolol Hcl [Bystolic] 20 MG) PO SCH (16:45)
[2018-05-10] MEDS: GABAPENTIN 300 MG CAPSULE PO SCH ×2 (18:12→21:44)
[2018-05-10] MEDS: HYDROCODONE/ACETAMINOPHEN 10-325 MG TABLET PO SCH ×2 (18:12→23:27)
[2018-05-10] MEDS: LISINOPRIL 10 MG TABLET PO SCH (18:13)
[2018-05-10] MEDS: INSULIN LISPRO 100 UNIT/ML 3 ML VIAL SUBCUT SCH (18:29)
[2018-05-10] MEDS: NEBIVOLOL HCL 10 MG TABLET PO SCH (20:23)
[2018-05-10] MEDS: ATORVASTATIN CALCIUM 40 MG TABLET PO SCH (21:32)
[2018-05-10] MEDS ORDERED: INSULIN GLARGINE,HUM.REC.ANLOG 300 UNIT/3 ML INSULN.PEN SUBCUT SCH (22:00)
[2018-05-10] MEDS: INSULIN LISPRO 100 UNIT/ML 3 ML VIAL SUBCUT PRN (23:33)
--- NOTE | 2018-05-11 00:03 | XCELERA REPORT ---
[address] [address] Transthoracic Echocardiogram Report Name: JASMIN MURDOCK Age: 58 yrs Gender: Female : 1960 Patient Status: Inpatient Patient Location: [place] [address]^A Study Date: 05/10/2018 04:36 PM Height: 63 in Weight: 154 lb BSA: 1.7 m2 Procedure: A complete two-dimensional transthoracic echocardiogram was performed (2D, M-mode, spectral and color flow Doppler). The study was technically adequate with some images being suboptimal in quality. Reason For Study: chf exacerbation Ordering Physician: PRABHU Performed By: Binta Kaur Interpretation Summary The left ventricular ejection fraction is normal. There is mild concentric left ventricular hypertrophy. The left ventricle is grossly normal size. Doppler measurements suggest pseudonormalized left ventricular relaxation, which is associated with grade II/IV or mild to moderate diastolic dysfunction Wall motion cannot be accurately commented on, but no definite regional wall motion abnormalities noted. The right ventricular systolic function is normal. The right atrium is normal in size The left atrium is mildly dilated. There is a moderate amount of mitral regurgitation There is no mitral valve stenosis. There is a moderate amount of aortic regurgitation There is no aortic valve stenosis There is a trace or physiologic amount of tricuspid regurgitation Tricuspid regurgitation jet envelope not well defined to measure RV systolic pressure accurately. The aortic root is not well visualized but is probably normal size. The inferior vena cava appeared normal and decreased < 50% with respiration (RAP 10-15 mmHg) Minimal pericardial effusion. MMode/2D Measurements & Calculations RVDd: 2.3 cm LVIDd: 4.4 cm FS: 35.5 % Ao root diam: 2.6 cm IVSd: 1.1 cm LVIDs: 2.9 cm EDV(Teich): 89.2 ml Ao root area: 5.4 cm2 LVPWd: 0.98 cm ESV(Teich): 31.1 ml LA dimension: 3.4 cm EF(Teich): 65.2 % LVOT diam: 1.9 cm LVOT area: 2.8 cm2 Doppler Measurements & Calculations MV E max daryn: MV P1/2t max daryn: Ao V2 max: AI max daryn: 153.6 cm/sec 191.4 cm/sec 255.2 cm/sec 348.6 cm/sec MV A max daryn: MV P1/2t: 59.0 msec Ao max PG: AI max P.2 cm/sec MVA(P1/2t): 3.7 cm2 26.0 mmHg 48.6 mmHg MV E/A: 1.0 MV dec slope: MARY(V,D): 1.2 cm2 AI dec slope: 485.4 cm/sec2 950.5 cm/sec2 AI P1/2t: MV dec time: 0.21 sec 210.4 msec LV V1 max PG: PA V2 max: TR max daryn: AV P1/2t-pr_phl: 4.5 mmHg 109.8 cm/sec 196.8 cm/sec 210.4 msec LV V1 max: PA max P.8 mmHg TR max P.3 cm/sec 15.5 mmHg MV P1/2t-pr_phl: 59.0 msec Left Ventricle The left ventricle is grossly normal size. There is mild concentric left ventricular hypertrophy. The left ventricular ejection fraction is normal. Doppler measurements suggest pseudonormalized left ventricular relaxation, which is associated with grade II/IV or mild to moderate diastolic dysfunction. Wall motion cannot be accurately commented on, but no definite regional wall motion abnormalities noted. Right Ventricle The right ventricle is grossly normal size. There is normal right ventricular wall thickness. The right ventricular systolic function is normal. Atria The right atrium is normal in size. The left atrium is mildly dilated. Interarterial septum not well visualized and not well dopplered. Cannot comment on ASD/PFO presence. Mitral Valve There is mild mitral annular calcification. There is no mitral valve stenosis. There is a moderate amount of mitral regurgitation. Aortic Valve The aortic valve is not well visualized secondary to technical limitations. The aortic valve opens well. There is no aortic valve stenosis. There is a moderate amount of aortic regurgitation. Tricuspid Valve The tricuspid valve is not well visualized secondary to technical limitations. There is no tricuspid stenosis. There is a trace or physiologic amount of tricuspid regurgitation. Tricuspid regurgitation jet envelope not well defined to measure RV systolic pressure accurately. Pulmonic Valve The pulmonic valve is not well visualized. Great Vessels The aortic root is not well visualized but is probably normal size. The inferior vena cava appeared normal and decreased < 50% with respiration (RAP 10-15 mmHg). Effusions Minimal pericardial effusion. : SCOTT^KELLEN^G > Candis Schofield
--- NOTE | 2018-05-11 00:11 | PDOC CONSULTATION ---
Consultation Consult Date: 05/10/18 Attending physician:: KELLEN CHAVEZ Consult reason:: CHF History of Present Illness Admission Date/PCP: 05/10/18 05:14 AJITH JONES MD Patient complains of: Shortness of breath and pedal edema History of Present Illness: JASMIN MURDOCK is a 58 year old female with chronic diastolic CHF as per last echocardiogram on November 2017. Comes to the emergency department complaining of shortness of breath that is started at 3 in the morning 1 day ago, associated with wheezing, cough with clear sputum, chest tightness. For than a week she is having progressive lower extremities edema and her weight has increased 27 pounds in less than 2 weeks. She feels that her swelling goes up to her abdomen with tightness. Her care taker is Dr. Mcclendon and last her Lasix was increased from 60 mg twice a day to 80 mg twice a day unsuccessfully. Denies fever, chills, nausea, vomiting. In the emergency department given 40 mg of IV Lasix. Blood pressure 190/115. Initial oxygen saturation 89%, patient was initiated on BiPAP. On questioning patient denied any chest pain. She denied any cardiac problem. Patient claims that she has nephrotic syndrome rather than CHF but was informed that current findings suggest that she also has CHF. Past Medical History Cardiac Medical History: Reports: Hypertension, Heart Murmur Denies: Atrial Fibrillation Endocrine Medical History: Reports: Diabetes Mellitus Type 2 GI Medical History: Reports: Gastroesophageal Reflux Disease Past Surgical History Past Surgical History: Reports: Cholecystectomy, Orthopedic Surgery - back x3, Tonsillectomy, Tubal Ligation Social History Information Source: Patient Smoking Status: Never Smoker Frequency of Alcohol Use: None Hx Recreational Drug Use: No Drugs: None Hx Prescription Drug Abuse: No - Advance Directive Resuscitation Status: Full Code Surrogate healthcare decision maker:: Patient's son is the surrogate decision-maker Family History Family History: CAD, Hypertension Parental Family History Reviewed: Yes Children Family History Reviewed: Yes Sibling(s) Family History Reviewed.: Yes Medication/Allergy Home Medications: Amlodipine Besylate [Norvasc 10 mg Tablet] 10 mg PO DAILY 05/10/18 Aspirin [Adult Low Dose Aspirin EC] 81 mg PO DAILY 05/10/18 Atorvastatin Calcium [Lipitor 40 mg Tablet] 40 mg PO QHS 05/10/18 Chlorothiazide [Chlorothiazide 250 mg Tablet] 250 mg PO DAILY 05/10/18 Diltiazem HCl [Cardizem 60 mg Tablet] 60 mg PO BID 05/10/18 Furosemide [Lasix 20 mg Tablet] 80 mg PO BID 05/10/18 Gabapentin [Neurontin 300 mg Capsule] 300 mg PO Q8 05/10/18 Hydrocodone/Acetaminophen [[place] 10-325 mg Tablet] 1 tab PO Q6 05/10/18 Insulin Glargine,Hum.rec.anlog [Lantus Solostar] 40 units SQ QHS 05/10/18 Insulin Lispro [Humalog Insulin (Lispro) 100 unit/mL] 7 units SQ AC 05/10/18 Ipratropium [place] [Atrovent 0.06% Nasal [place]] 1 spray NASL QIDP PRN 05/10/18 Lisinopril [Zestril] 40 mg PO DAILY 05/10/18 Nebivolol HCl [Bystolic] 20 mg PO DAILY 05/10/18 Ondansetron HCl [Zofran 4 mg Tablet] 4 mg PO Q6HP PRN 05/10/18 Allergies/Adverse Reactions: metaxalone [From Skelaxin] Allergy (Verified 05/09/18 18:51) metformin Allergy (Verified 05/09/18 18:51) Review of Systems Review of Systems: Please see history of present illness and past medical history as wall. Constitutional: No fever or chills reported. Marked fatigue and tiredness reported. Head : No recent chronic headaches, recent head injury. Eyes: No recent eye pain, diplopia, redness, discharge, acute visual changes. Ears: No recent chronic ear pain, acute hearing loss, ear discharge. Oral cavity: No recent ulcerations, bleeding, oral cavity discomfort. Neck: No recent acute neck pain reported. Hematologic: No recent easy bruising or bleeding. Lymphatic: No recent lymph node enlargement reported. Cardiovascular system review: See history of present illness. Respiratory system review: No hemoptysis or blood clots in the lungs reported. Shortness of breath on exertion Gastrointestinal system review: Negative for any recent acute hematemesis, melena. Genitourinary system review: No recent acute or chronic hematuria, flank pain, UTI etc. reported. Claims nephrotic syndrome. Skin system review: Negative for any recent abnormal bruising, no rash, no pruritus reported. Neurologic: No prior history of strokes, mini strokes, seizure disorder. Psychologic: No history of major psychosis or major depression reported. Musculoskeletal: Minor aches and pains reported. No acute joint swelling reported. Endocrine: No recent polyuria, polydipsia, recent heat or cold intolerance. Physical Exam Vital Signs: Temp Pulse Resp BP Pulse Ox 98.2 F 88 17 170/54 H 92 05/10/18 20:17 05/10/18 20:17 05/10/18 20:17 05/10/18 20:17 05/10/18 20:17 Intake & Output 05/09/18 05/10/18 05/11/18 06:59 06:59 06:59 Intake Total 266 Output Total 550 Balance -284 Exam: GENERAL: well-nourished and in no acute distress. Alert and oriented x3 HEAD: Atraumatic, normocephalic. EYES: Pupils equal round and reactive to light, extraocular movements intact, sclera anicteric, conjunctiva are normal. ENT: TMs normal, nares patent, oropharynx clear without exudates. Moist mucous membranes. No oral ulcerations or bleeding gums noted NECK: supple without lymphadenopathy. Trachea is central. No cervical or axillary lymphadenopathy noted. Carotids are 2+, JVD 12-14 cm LUNGS: Respiration seems nonlabored, no significant accessory muscle action noted. Bilateral dullness noted at the bases along with underlying bibasilar crackles. Diminished breath sounds noted both bases. CHEST: Palpation of the chest wall shows no significant chest wall tenderness. HEART: [place]ORTER, No PSH, 2/6 [place] aortic area, 2/6 early diastolic murmur noted LSB, 1/6 m[place] systolic murmur mitral area, no rubs, no gallops. ABDOMEN: Soft, no significant tenderness appreciated, normoactive bowel sounds. No guarding, no rebound. No rigidity noted . No masses appreciated. EXTREMITIES: Pedal pulses are 1-2+, no calf tenderness noted. No clubbing or cyanosis. 2+ pedal edema noted NEUROLOGICAL: Focused neurological exam showed no significant neurologic deficit. Normal speech, no focal weakness appreciated. PSYCH: Normal mood, normal affect. Judgment and insight within normal limits. SKIN: No significant ecchymosis, skin is noted to be warm. MUSCULOSKELETAL EXAM: No significant acute joint swelling noted. Results Laboratory Results: 05/10/18 05/10/18 05/10/18 09:38 10:08 22:41 GGT 147 H C-Reactive Protein 13.9 H Urine Color STRAW Urine Appearance CLEAR Urine pH 7.0 Ur Specific [place] 1.008 Urine Protein 100 H Urine Glucose (UA) 50 H Urine Ketones NEGATIVE Urine Blood MODERATE H Urine Nitrite NEGATIVE Ur Leukocyte Esterase SMALL H Urine WBC (Auto) 5 Urine RBC (Auto) 6 05/10/18 05/10/18 05/10/18 09:38 15:25 21:30 Troponin I < 0.012 < 0.012 < 0.012 EKG Comments: Sinus rhythm, low voltage QRS frontal leads, QS complex V1 to V3, cannot rule out prior anterior MD, versus LVH related, occasional VPCs, no acute ST-T wave changes Impressions: Chest X-Ray 05/09/18 22:20 IMPRESSION: 1. Moderate bilateral pleural effusions. 2. Chronic appearing interstitial opacities identified. Superimposed acute interstitial pneumonic process is also a possibility. Assessment & Plan - Diagnosis (1) Acute on chronic diastolic (congestive) heart failure Is this a current diagnosis for this admission?: Yes (2) Hypertensive urgency Is this a current diagnosis for this admission?: Yes (3) Bilateral pleural effusion Is this a current diagnosis for this admission?: Yes (4) Diabetes Qualifiers: Diabetes mellitus complication status: without complication Is this a current diagnosis for this admission?: Yes (5) Mitral regurgitation Qualifiers: Cardiac valve disease etiology: nonrheumatic Qualified Code(s): I34.0 - Nonrheumatic mitral (valve) insufficiency Is this a current diagnosis for this admission?: Yes (6) Aortic incompetence Qualifiers: Cardiac valve disease etiology: etiology unspecified Qualified Code(s): I35.1 - Nonrheumatic aortic (valve) insufficiency Is this a current diagnosis for this admission?: Yes - Notes Notes: Acute on chronic diastolic heart failure: With significant contribution from valvular heart disease and hypertensive heart disease. Recommend IV diuretics. Also recommend vasodilator therapy such as ASH inhibitor/ARB, hydralazine nitrate combination, carvedilol if needed. Hypertensive urgency: Recommend good control of blood pressure. Blood pressure goal should be 130/85 or less. Recommend IV hydralazine or IV Vasotec as needed. May add nitrates. Bilateral pleural effusion: IV diuretics, monitor with chest x-ray and BNP level. Diabetes: Recommend good control of blood sugars. Mitral regurgitation: Posteriorly directed. Moderate in severity. May need periodic checkup with echocardiogram. Aortic incompetence: Most likely moderate but could well be moderate to severe. May need periodic evaluation. Currently LVEF WNL. - Time Time Spent: 30 to 50 Minutes - CODE STATUS was discussed, patient remains full code. Surrogate decision-maker unchanged. Multiple medical problems were addressed. More than 50% of the time spent coordinating care, discussing management plans with involved caregivers. Management plans discussed with involved personnels. Medical decision making was of moderate to high complexity , patient's has multiple comorbidities. Medications reviewed and adjusted accordingly: Yes
[2018-05-11 04:54] LABS: LIPASE 54.4 U/L (23-300)
[2018-05-11 05:02] LABS: AMYLASE < 30 U/L (30-110)
[2018-05-11] MEDS: HYDROCODONE/ACETAMINOPHEN 10-325 MG TABLET PO SCH ×4 (06:27→23:02)
[2018-05-11] MEDS: GABAPENTIN 300 MG CAPSULE PO SCH ×3 (06:27→22:52)
[2018-05-11] MEDS: HEPARIN SOD (PORCINE) 5,000 UNIT/ML 1 ML SYRINGE SUBCUT SCH ×3 (06:30→22:46)
[2018-05-11 08:07] LABS: ABSOLUTE EOSINOPHILS # (AUTO) 0.1 10^3/uL (0.0-0.6); ABSOLUTE LYMPHOCYTES (AUTO) 1.1 10^3/uL (0.5-4.7); ABSOLUTE MONOCYTES (AUTO) 0.6 10^3/uL (0.1-1.4); BASOPHILS % (AUTO) 0.7 % (0-2); EOSINOPHILS % (AUTO) 1.8 % (0-6); HEMATOCRIT 27.4 % (36.0-47.0); HEMOGLOBIN 9.4 g/dL (12.0-15.5); LYMPHOCYTES % (AUTO) 18.4 % (13-45); MEAN CORPUSCULAR HEMOGLOBIN 27.9 pg (27.0-33.4); MEAN CORPUSCULAR HGB CONC 34.2 g/dL (32.0-36.0); MEAN CORPUSCULAR VOLUME 82 fl (80-97); MONOCYTES % (AUTO) 10.1 % (3-13); PLATELET COUNT 190 10^3/uL (150-450); RED BLOOD COUNT 3.35 10^6/uL (3.72-5.28); TOTAL CELLS COUNTED % (AUTO) 100 %; WHITE BLOOD COUNT 5.8 10^3/uL (4.0-10.5)
[2018-05-11] MEDS: INSULIN LISPRO 100 UNIT/ML 3 ML VIAL SUBCUT SCH ×3 (08:11→17:50)
[2018-05-11 08:28] LABS: ALANINE AMINOTRANSFERASE 32 U/L (9-52); ALBUMIN 2.8 g/dL (3.5-5.0); ALKALINE PHOSPHATASE 228 U/L (38-126); ANION GAP 10 (5-19); ASPARTATE AMINO TRANSFERASE 18 U/L (14-36); BILIRUBIN,DIRECT 0.2 mg/dL (0.0-0.4); BILIRUBIN,TOTAL 0.2 mg/dL (0.2-1.3); BLOOD UREA NITROGEN 29 mg/dL (7-20); CALCIUM 8.8 mg/dL (8.4-10.2); CARBON DIOXIDE 27 mmol/L (22-30); CHLORIDE 103 mmol/L (98-107); GLUCOSE 255 mg/dL (75-110); PHOSPHORUS 3.9 mg/dL (2.5-4.5); POTASSIUM 4.3 mmol/L (3.6-5.0); SODIUM 140.4 mmol/L (137-145); TOTAL PROTEIN 5.4 g/dL (6.3-8.2)
[2018-05-11] MEDS: NEBIVOLOL HCL 10 MG TABLET PO SCH (10:25)
[2018-05-11] MEDS: ASPIRIN 81 MG TABLET, ENT COATED PO SCH (10:26)
[2018-05-11] MEDS: LISINOPRIL 10 MG TABLET PO SCH (10:26)
[2018-05-11] MEDS: FUROSEMIDE INJ/PF 40 MG/4 ML SDV IV SCH ×2 (10:26→22:47)
[2018-05-11] MEDS ORDERED: CHLOROTHIAZIDE 250 MG PO SCH (13:15)
[2018-05-11] MEDS: ISOSORB DINIT/HYDRALAZINE HCL 20-37.5 MG TABLET PO SCH ×2 (15:38→17:39)
[2018-05-11] MEDS: AMLODIPINE BESYLATE 2.5 MG TABLET PO SCH (15:40)
--- NOTE | 2018-05-11 16:37 | PDOC PROGRESS REPORT ---
Subjective Progress Note for:: 05/11/18 Subjective:: Patient is a 58-year-old female admitted with fluid overload. Patient had edema in her pelvis. Patient has a history of proteinuria possibly nephrotic syndrome and possible CHF. Patient has recently established herself with a sales facilitator. Patient also does follow with the skelp processor read Echocardiogram done here shows ejection fraction being normal with mild concentric LVH With mild to moderate diastolic dysfunction. Vital signs are stable blood pressure is 158/54. Per cardiology start on combination of nitrates and hydralazine, will start patient on BiDil Half a tablet twice a day. 2 report from nurse this morning the patient's blood sugar was 49 she was alert and oriented. Patient was given dextrose and juice and her sugar came up to the 80s. Patient's long-acting Lantus was discontinued. Patient to continue getting sliding scale coverage. patient denied any history of blood in the urine however has small to moderate blood in the urine. Patient has an appointment with Dr. Ignacio sales facilitator for evaluation of her protein in the urine. Patient was told that the heart doctor said the reason that she was having swelling all over is because of her kidneys and not her heart. We will continue to diurese monitor electrolytes monitor telemetry. I have ordered initial screen for active tissue disease with a ALEA, rheumatoid factor. Reason For Visit: HEART FAILURE Physical Exam Vital Signs: Temp Pulse Resp BP Pulse Ox 98.0 F 84 16 158/54 H 93 05/11/18 11:31 05/11/18 11:31 05/11/18 11:31 05/11/18 11:31 05/11/18 11:31 Intake & Output 05/10/18 05/11/18 05/12/18 06:59 06:59 06:59 Intake Total 1046 Output Total 2500 Balance -1454 Weight 145 lb 15.136 oz General appearance: PRESENT: no acute distress, cooperative Eye exam: PRESENT: EOMI Ear exam: PRESENT: normal external ear exam Respiratory exam: PRESENT: crackles. ABSENT: accessory muscle use, rhonchi, tachypnea, wheezes Cardiovascular exam: PRESENT: RRR Rectal exam: PRESENT: deferred Neurological exam: PRESENT: alert, awake, CN II-XII grossly intact, normal gait Results Laboratory Results: 05/11/18 03:37 05/11/18 03:37 05/10/18 05/11/1805/11/18 22:41 03:37 03:37 WBC 5.8 RBC 3.35 L Hgb 9.4 L Hct 27.4 L MCV 82 MCH 27.9 MCHC 34.2 RDW 14.0 Plt Count 190 Seg Neutrophils % 69.0 Lymphocytes % 18.4 Monocytes % 10.1 Eosinophils % 1.8 Basophils % 0.7 Absolute Neutrophils 4.0 Absolute Lymphocytes 1.1 Absolute Monocytes 0.6 Absolute Eosinophils 0.1 Absolute Basophils 0.0 Sodium Potassium Chloride Carbon Dioxide Anion Gap BUN Creatinine Est GFR ( Amer) Est GFR (Non-Af Amer) Glucose Calcium Phosphorus Magnesium Total Bilirubin AST ALT Alkaline Phosphatase C-Reactive Protein 13.9 H Total Protein Albumin Amylase < 30 L Lipase 54.4 05/11/18 03:37 WBC RBC Hgb Hct MCV MCH MCHC RDW Plt Count Seg Neutrophils % Lymphocytes % Monocytes % Eosinophils % Basophils % Absolute Neutrophils Absolute Lymphocytes Absolute Monocytes Absolute Eosinophils Absolute Basophils Sodium 140.4 Potassium 4.3 Chloride 103 Carbon Dioxide 27 Anion Gap 10 BUN 29 H Creatinine 1.01 Est GFR ( Amer) > 60 Est GFR (Non-Af Amer) 57 L Glucose 255 H Calcium 8.8 Phosphorus 3.9 Magnesium 2.0 Total Bilirubin 0.2 AST 18 ALT 32 Alkaline Phosphatase 228 H C-Reactive Protein Total Protein 5.4 L Albumin 2.8 L Amylase Lipase 05/10/18 05/10/18 05/10/18 09:38 15:25 21:30 Troponin I < 0.012 < 0.012 < 0.012 Impressions: Chest X-Ray 05/09/18 22:20 IMPRESSION: 1. Moderate bilateral pleural effusions. 2. Chronic appearing interstitial opacities identified. Superimposed acute interstitial pneumonic process is also a possibility. Assessment & Plan - Diagnosis (1) Acute on chronic diastolic (congestive) heart failure Is this a current diagnosis for this admission?: Yes Plan: Patient has had an echocardiogram in 2018 which shows diastolic dysfunction. Continue current regimen with diuretics. Med changes made per cardiology recommendation. (2) Acute renal failure Qualifiers: Acute renal failure type: unspecified Qualified Code(s): N17.9 - Acute kidney failure, unspecified Is this a current diagnosis for this admission?: Yes Plan: Patient has kidney dysfunction suspect nephrotic syndrome current creatinine is within normal limits GFR is only mildly decreased. We will avoid any nephrotoxic agents. 24-hour urine for protein is pending. Patient to follow-up with her sales facilitator Dr. Ignacio. (3) Acute respiratory failure with hypoxia Is this a current diagnosis for this admission?: Yes Plan: Attributed to pulmonary vascular congestion due to heart failure. Patient was started on BiPAP and diuresed and successfully changed to nasal cannula and is comfortable currently. (4) Diabetes Qualifiers: Diabetes mellitus complication status: without complication Is this a current diagnosis for this admission?: Yes Plan: Patient had an episode of hypoglycemia currently have discontinued Lantus 40 units and patient is to be covered with sliding scale insulin. A1c is above 8 we will add on Lantus 15 mg twice a day.
--- NOTE | 2018-05-11 17:16 | PROGRESS NOTE E ---
Progress Note NAME: JASMIN MURDOCK : 1960 AGE: 58Y DATE: 05/11/2018 ROOM: 428 SUBJECTIVE: The patient states her shortness of breath is much improved. Her orthopnea is also improved, although she has not tried lying down flat. She denies any palpitations. There is no chest pain or discomfort. Her leg edema is much improved. The patient denies any cough or sputum production. There is no pleuritic chest pain. There is no hemoptysis. There are no TIA or CVA symptoms. OBJECTIVE: GENERAL: The patient is well-built and well-nourished, at present in no acute distress. She is well-groomed. VITAL SIGNS: She is afebrile, with a temperature of 98 degrees Fahrenheit. Pulse is 84 beats per minute, blood pressure 158/54, her respirations are 16 per minute. O2 sats are 90% on 2 liters nasal cannula. HEENT: Head is atraumatic, normocephalic. Eyes: Pupils are equal, round, regular, reactive to light and accommodation. Extraocular movements are normal. There is no jaundice or pallor. There is no scleral icterus. ENT is negative. NECK: Supple. There is no JVD. Carotids are equal. There are no bruits. There is no lymphadenopathy. There is no goiter. Trachea is central. LUNGS: Show small area of absent breath sounds in both bases. Above this, there are a few fine crackles bilaterally. There is no chest wall tenderness. There is no rhonchi or wheezing. HEART: S1, S2 are heard. There is no S3 gallop. There is no S4 gallop. There is a systolic murmur at the left sternal border, at the apex. There is no rub. There is murmur of aortic insufficiency present, which is grade 1/6. There are no peripheral signs of aortic regurgitation. There is a murmur of mitral regurgitation heard in the apex, with radiation to the left axilla. There is no S3 gallop. ABDOMEN: Soft, nontender. There is no hepatosplenomegaly. Bowel sounds well-heard. There are no tender areas or masses. EXTREMITIES: Femorals are diminished. There is no femoral bruit. Leg pulses are diminished. There is 1+ pedal edema bilaterally. There is no DVT or cellulitis. There is no calf tenderness. There is no cyanosis or clubbing. SENIOR SCRUM MASTER: The patient is conscious, awake, alert, oriented x3. No focal deficits. PSYCHIATRIC: The patient's judgment and insight are intact. Her affect is normal. DIAGNOSTICS: Note, on the , yesterday, her echocardiogram showed normal LV systolic function with LV diastolic dysfunction, grade 2, which is pseudonormalization. There is no definite wall motion abnormality. LV ejection fraction is normal. There is moderate mitral regurgitation and moderate aortic regurgitation. There is no aortic stenosis. There is no pericardial effusion. Note, on admission, the patient's urine showed 100+ protein. The patient's 24-hour intake is 1046 mL; output is 1500 mL. The patient's sodium is 145, potassium 4.3, chloride 103, CO2 is 27. The patient's BUN is 29, creatinine is 1.01. GFR is *------*, which is chronic kidney disease stage II. Glucose is 255. Hemoglobin A1c is 10.7. Her albumin is 2.8, total protein is 5.4. Her amylase is less than 30 and her lipase is 54.5. C-reactive is 13.9. On the and , her cardiac enzymes were negative serially, with negative troponin I x4. IMPRESSION: 1. SHORTNESS OF BREATH, MOST LIKELY SECONDARY TO CONGESTIVE HEART FAILURE. 2. ACUTE ON CHRONIC DIASTOLIC HEART FAILURE AND HEART FAILURE SECONDARY TO VALVULAR DISEASE. 3. HYPERTENSIVE URGENCY. At present, blood pressure controlled. 4. DIABETES MELLITUS. 5. MITRAL REGURGITATION. 6. AORTIC REGURGITATION. 7. HISTORY OF NEPHROTIC SYNDROME. Note that the patient has gross proteinuria on a spot urine test. The patient's blood pressure is not very well optimally controlled. In view of the aortic regurgitation, will add amlodipine 2.5 mg p.o. q.12 hours and increase as tolerated. Her medications have been reviewed. Also will order a 24-hour urine protein to see if the proteinuria is in the nephrotic range. Note, 40 minutes spent on this patient, with more than 50% of the time spent on direct patient care. Note, medication was reviewed. Medication has been added. Medical decision-making is of high complexity. Will follow with you. Thank you. DICTATING PHYSICIAN: CHARLENE PACKER M.D. [id number] PHY#: [id number] ID: [id number] JOB#: [id number] ACCT: [id number] cc: >
[2018-05-11] MEDS: INSULIN LISPRO 100 UNIT/ML 3 ML VIAL SUBCUT PRN (17:54)
[2018-05-11] MEDS: ATORVASTATIN CALCIUM 40 MG TABLET PO SCH (22:52)
[2018-05-11] MEDS: INSULIN GLARGINE,HUM.REC.ANLOG 1,000 UNIT/10 ML UNIT SUBCUT SCH (23:01)
[2018-05-11] MEDS: ONDANSETRON 4 MG TAB.RAPDIS PO PRN (23:02)
[2018-05-12] MEDS ORDERED: KETOROLAC TROMETHAMINE INJ/PF 30 MG/1 ML SDV IV PRN (02:42)
[2018-05-12] MEDS: HYDROCODONE/ACETAMINOPHEN 10-325 MG TABLET PO SCH ×3 (06:02→17:55)
[2018-05-12] MEDS: AMLODIPINE BESYLATE 2.5 MG TABLET PO SCH (06:02)
[2018-05-12] MEDS: GABAPENTIN 300 MG CAPSULE PO SCH ×3 (06:03→21:47)
[2018-05-12] MEDS: HEPARIN SOD (PORCINE) 5,000 UNIT/ML 1 ML SYRINGE SUBCUT SCH ×3 (06:03→21:47)
[2018-05-12] MEDS: NEBIVOLOL HCL 10 MG TABLET PO SCH (09:37)
[2018-05-12] MEDS: ASPIRIN 81 MG TABLET, ENT COATED PO SCH (09:37)
[2018-05-12] MEDS: ISOSORB DINIT/HYDRALAZINE HCL 20-37.5 MG TABLET PO SCH (09:38)
[2018-05-12] MEDS: LISINOPRIL 10 MG TABLET PO SCH ×2 (09:38→21:47)
[2018-05-12] MEDS: FUROSEMIDE INJ/PF 40 MG/4 ML SDV IV SCH ×2 (10:45→21:46)
[2018-05-12] MEDS ORDERED: AMLODIPINE BESYLATE 2.5 MG TABLET PO SCH (10:49)
[2018-05-12] MEDS: INSULIN GLARGINE,HUM.REC.ANLOG 1,000 UNIT/10 ML UNIT SUBCUT SCH ×2 (12:45→21:46)
[2018-05-12] MEDS: INSULIN LISPRO 100 UNIT/ML 3 ML VIAL SUBCUT PRN ×2 (12:48→17:56)
[2018-05-12] MEDS: DILTIAZEM HCL 60 MG TABLET PO SCH ×2 (12:48→17:49)
--- NOTE | 2018-05-12 12:56 | RADIOLOGY REPORT (SQ) ---
EXAM DESCRIPTION: U/S RETROPERITON (RENAL/AORTA) COMPLETED DATE/TIME: 05/12/2018 10:02 am REASON FOR STUDY: HEMATURIA, PROTEINURIA COMPARISON: None. TECHNIQUE: Dynamic and static grayscale images acquired of the kidneys and bladder and recorded on P ACS. Additional selected color Doppler and spectral images recorded. LIMITATIONS: None. FINDINGS: RIGHT KIDNEY: Normal size. Normal echogenicity. No solid or suspicious masses. No hydronep hrosis. No calcifications. LEFT KIDNEY: Normal size. Normal echogenicity. No solid or suspicious masses. No hydronephrosis. No calcifications. BLADDER: No masses. OTHER FINDINGS: No other significant finding. IMPRESSION: NORMAL RENAL AND BLADDER ULTRASOUND. TECHNICAL DOCUMENTATION: JOB ID: [id number] [employer]- All Rights Reserved Reading location - IP/workstation name: [email or web address]
[2018-05-12 13:15] LABS: ABSOLUTE EOSINOPHILS # (AUTO) 0.2 10^3/uL (0.0-0.6); ABSOLUTE LYMPHOCYTES (AUTO) 1.3 10^3/uL (0.5-4.7); ABSOLUTE MONOCYTES (AUTO) 0.4 10^3/uL (0.1-1.4); ABSOLUTE NEUT (AUTO) 2.9 10^3/uL (1.7-8.2); BASOPHILS % (AUTO) 0.7 % (0-2); EOSINOPHILS % (AUTO) 4.7 % (0-6); HEMATOCRIT 27.6 % (36.0-47.0); HEMOGLOBIN 9.4 g/dL (12.0-15.5); LYMPHOCYTES % (AUTO) 26.1 % (13-45); MEAN CORPUSCULAR HEMOGLOBIN 27.9 pg (27.0-33.4); MEAN CORPUSCULAR HGB CONC 34.2 g/dL (32.0-36.0); MEAN CORPUSCULAR VOLUME 82 fl (80-97); MONOCYTES % (AUTO) 8.9 % (3-13); PLATELET COUNT 192 10^3/uL (150-450); RED BLOOD COUNT 3.38 10^6/uL (3.72-5.28); RED CELL DISTRIBUTION WIDTH 13.7 % (11.5-14.0); SEGMENTED NEUTROPHILS % (AUTO) 59.6 % (42-78); TOTAL CELLS COUNTED % (AUTO) 100 %; WHITE BLOOD COUNT 4.9 10^3/uL (4.0-10.5)
[2018-05-12 13:32] LABS: ALANINE AMINOTRANSFERASE 32 U/L (9-52); ALBUMIN 2.6 g/dL (3.5-5.0); ALKALINE PHOSPHATASE 166 U/L (38-126); ANION GAP 11 (5-19); ASPARTATE AMINO TRANSFERASE 20 U/L (14-36); BILIRUBIN,DIRECT 0.3 mg/dL (0.0-0.4); BILIRUBIN,TOTAL 0.3 mg/dL (0.2-1.3); BLOOD UREA NITROGEN 23 mg/dL (7-20); CALCIUM 8.5 mg/dL (8.4-10.2); CARBON DIOXIDE 31 mmol/L (22-30); CHLORIDE 99 mmol/L (98-107); GLUCOSE 152 mg/dL (75-110); PHOSPHORUS 4.7 mg/dL (2.5-4.5); POTASSIUM 4.2 mmol/L (3.6-5.0); SODIUM 140.5 mmol/L (137-145); TOTAL PROTEIN 5.2 g/dL (6.3-8.2)
[2018-05-12] MEDS: AMLODIPINE BESYLATE 5 MG TABLET PO SCH (17:56)
[2018-05-12 20:14] LABS: URINE PROTEIN 192.5 mg/dL (<12)
[2018-05-12] MEDS: MORPHINE SULFATE 10 MG/ML INJ IV PRN (20:14)
--- NOTE | 2018-05-12 20:21 | Progress Note ---
Provider Note Provider Note: Progress Note by Dr. Kady Villasenor. NAME: JASMIN MURDOCK : 1960 AGE: 58Y DATE: 05/12/2018 ROOM: 428 SUBJECTIVE: The patient states her shortness of breath is much improved, and has no shortness of breath at rest. Herorthopnea is also improved, although she has not tried lying down flat. There is no PND. She denies any palpitations. There is no chest pain or discomfort. Her leg edema is much improved. The patient denies any cough or sputum production. There is no pleuritic chest pain. There is no hemoptysis. There are no TIA or CVA symptoms. Note that the patient's blood pressure still not well controlled. OBJECTIVE: Selected Entries 05/12/18 11:38 Temperature 98.2 F Temperature Oral Source Pulse Rate 73 Respiratory 17 Rate Blood Pressure 164/66 H Blood Pressure 98 Mean O2 Sat by Pulse 91 L Oximetry Oxygen Delivery Room Air Method GENERAL: The patient is well-built and well-nourished, at present in no acute distress. She is well-groomed. HEENT: Head is atraumatic, normocephalic. Eyes: Pupils are equal, round, regular, reactive to light and accommodation. Extraocular movements are normal. There is no jaundice or pallor. There is no scleral icterus. ENT is negative. NECK: Supple. There is no JVD. Carotids are equal. There are no bruits. There is no lymphadenopathy. There is no goiter. Trachea is central. LUNGS: The lungs are clear to auscultation percussion, without any rhonchi rales or wheezing.There is no chest wall tenderness. HEART: S1, S2 are heard. There is no S3 gallop. There is no S4 gallop. There is a systolic murmur at the left sternal border, at the apex. There is no rub. There is murmur of aortic insufficiency present, which is grade 1/6. There are no peripheral signs of aortic regurgitation. There is a murmur of mitral regurgitation heard in the apex, with radiation to the left axilla. There is no S3 gallop. ABDOMEN: Soft, nontender. There is no hepatosplenomegaly. Bowel sounds well-heard. There are no tender areas or masses. EXTREMITIES: Femorals are diminished. There is no femoral bruit. Leg pulses are diminished. There is 1+ pedal edema bilaterally. There is no DVT or cellulitis. There is no calf tenderness. There is no cyanosis or clubbing. VETERINARY TECHNICIAN ASSISTANT: The patient is conscious, awake, alert, oriented x3. No focal deficits. PSYCHIATRIC: The patient's judgment and insight are intact. Her affect is normal. DIAGNOSTICS: 05/10/18 05/10/18 05/12/18 22:41 22:41 12:53 WBC 4.9 Hgb 9.4 L Hct 27.6 L Plt Count 192 Sodium Potassium Chloride Carbon Dioxide BUN Creatinine Est GFR (Non-Af Amer) Glucose Calcium Phosphorus Magnesium Total Bilirubin Direct Bilirubin Neonat Total Bilirubin Neonat Direct Bilirubin Neonat Indirect Bili AST ALT Alkaline Phosphatase NT-Pro-B Natriuret Pep Total Protein Albumin Rheumatoid Factor NEGATIVE Scl-70 Scleroderma Ab Pending 05/12/18 05/12/18 12:53 12:53 WBC Hgb Hct Plt Count Sodium 140.5 Potassium 4.2 Chloride 99 Carbon Dioxide 31 H BUN 23 H Creatinine 0.93 Est GFR (Non-Af Amer) > 60 Glucose 152 H Calcium 8.5 Phosphorus 4.7 H Magnesium 1.9 Total Bilirubin 0.3 Direct Bilirubin 0.3 Neonat Total Bilirubin Not Reportable Neonat Direct Bilirubin Not Reportable Neonat Indirect Bili Not Reportable AST 20 ALT 32 Alkaline Phosphatase 166 H NT-Pro-B Natriuret Pep 3300 H Total Protein 5.2 L Albumin 2.6 L Rheumatoid Factor Scl-70 Scleroderma Ab IMPRESSION: 1. SHORTNESS OF BREATH, MOST LIKELY SECONDARY TO CONGESTIVE HEART FAILURE. 2. ACUTE ON CHRONIC DIASTOLIC HEART FAILURE AND HEART FAILURE SECONDARY TO VALVULAR DISEASE. 3. HYPERTENSIVE URGENCY. At present, blood pressure controlled. 4. DIABETES MELLITUS. 5. MITRAL REGURGITATION. 6. AORTIC REGURGITATION. 7. HISTORY OF NEPHROTIC SYNDROME. Note that the patient has gross proteinuria on a spot urine test. The patient's blood pressure is not very well optimally controlled. In view of the aortic regurgitation, will increase amlodipine to 5 mg p.o. q.12 hours and increase as tolerated. Her medications have been reviewed. Will stop the patient's Cardizem, and increase the patient's lisinopril to 40 mg p.o. every 12 hours also. We will also start the patient on isosorbide mononitrate 60 mg p.o. daily. Await 24-hour urine protein to see if the proteinuria is in the nephrotic range. The patient stress test was many years ago. Once stable from a current congestive heart failure, then we will schedule the patient for outpatient Lexiscan Cardiolite stress test versus exercise treadmill stress Cardiolite. Will recheck the patient's chest x-ray in the a.m. Note, 40 minutes spent on this patient, with more than 50% of the time spent on direct patient care. Note, medication was reviewed. Medication has been added, doses adjusted. Medical decision-making is of high complexity. Discussed with the hospitalist taking care of the patient. Will follow with you. Thank you.
[2018-05-12 20:24] LABS: 24 HOUR URINE PROTEIN RESULT 3850 mg/day (42-225)
--- NOTE | 2018-05-12 21:25 | PDOC PROGRESS REPORT ---
Subjective Progress Note for:: 05/12/18 Subjective:: Patient is a 58-year-old female admitted with fluid overload. Patient had edema in her pelvis. Patient has a history of proteinuria possibly nephrotic syndrome and possible CHF. Patient has recently established herself with a foam machine operator. Patient also does follow with the ux developer read Echocardiogram done here shows ejection fraction being normal with mild concentric LVH With mild to moderate diastolic dysfunction. Vital signs are stable blood pressure is 158/54. Per cardiology start on combination of nitrates and hydralazine, will start patient on BiDil Half a tablet twice a day. 2 report from nurse this morning the patient's blood sugar was 49 she was alert and oriented. Patient was given dextrose and juice and her sugar came up to the 80s. Patient's long-acting Lantus was discontinued. Patient to continue getting sliding scale coverage. patient denied any history of blood in the urine however has small to moderate blood in the urine. Patient has an appointment with Dr. Ignacio foam machine operator for evaluation of her protein in the urine. Patient was told that the heart doctor said the reason that she was having swelling all over is because of her kidneys and not her heart. We will continue to diurese monitor electrolytes monitor telemetry. I have ordered initial screen for active tissue disease with a ALEA, rheumatoid factor. Reason For Visit: HEART FAILURE Physical Exam Vital Signs: Temp Pulse Resp BP Pulse Ox 98.4 F 71 16 152/54 H 92 05/12/18 15:59 05/12/18 15:59 05/12/18 15:59 05/12/18 15:59 05/12/18 15:59 Intake & Output 05/11/18 05/12/18 05/13/18 06:59 06:59 06:59 Intake Total 1046 1088 620 Output Total 1131 2400 700 Balance -1454 -1312 -80 Weight 145 lb 15.136 oz 149 lb 14.629 oz General appearance: PRESENT: cooperative Head exam: PRESENT: atraumatic, normocephalic Eye exam: PRESENT: EOMI Ear exam: PRESENT: normal external ear exam Respiratory exam: PRESENT: other - Bilateral basilar crackles Cardiovascular exam: PRESENT: RRR, systolic murmur GI/Abdominal exam: PRESENT: soft. ABSENT: distended, normal bowel sounds, tenderness Neurological exam: PRESENT: alert, awake, oriented to person, oriented to place , oriented to time, CN II-XII grossly intact Results Laboratory Results: 05/12/18 12:53 05/12/18 12:53 05/11/18 05/12/18 05/12/18 19:00 12:53 12:53 WBC 4.9 RBC 3.38 L Hgb 9.4 L Hct 27.6 L MCV 82 MCH 27.9 MCHC 34.2 RDW 13.7 Plt Count 192 Seg Neutrophils % 59.6 Lymphocytes % 26.1 Monocytes % 8.9 Eosinophils % 4.7 Basophils % 0.7 Absolute Neutrophils 2.9 Absolute Lymphocytes 1.3 Absolute Monocytes 0.4 Absolute Eosinophils 0.2 Absolute Basophils 0.0 Sodium 140.5 Potassium 4.2 Chloride 99 Carbon Dioxide 31 H Anion Gap 11 BUN 23 H Creatinine 0.93 Est GFR ( Amer) > 60 Est GFR (Non-Af Amer) > 60 Glucose 152 H Calcium 8.5 Phosphorus 4.7 H Magnesium 1.9 Total Bilirubin 0.3 AST 20 ALT 32 Alkaline Phosphatase 166 H Total Protein 5.2 L Albumin 2.6 L Ur 24 Hour Volume 2000 Ur Total Protein 24 Hr 3850 H 05/10/18 10:08 Clean Catch Midstream Urine Culture - Final Mixed Urogenital Abby 05/10/18 05/10/18 05/10/18 09:38 15:25 21:30 Troponin I < 0.012 < 0.012 < 0.012 NT-Pro-B Natriuret Pep 05/12/18 12:53 Troponin I NT-Pro-B Natriuret Pep 3300 H Impressions: Chest X-Ray 05/09/18 22:20 IMPRESSION: 1. Moderate bilateral pleural effusions. 2. Chronic appearing interstitial opacities identified. Superimposed acute interstitial pneumonic process is also a possibility. Renal Ultrasound 05/12/18 00:00 IMPRESSION: NORMAL RENAL AND BLADDER ULTRASOUND. Assessment & Plan - Diagnosis (1) Acute on chronic diastolic (congestive) heart failure Is this a current diagnosis for this admission?: Yes Plan: Patient has had an echocardiogram in 2018 which shows diastolic dysfunction. Continue current regimen with diuretics. Med changes made per cardiology recommendation. (2) Acute renal failure Qualifiers: Acute renal failure type: unspecified Qualified Code(s): N17.9 - Acute kidney failure, unspecified Is this a current diagnosis for this admission?: Yes Plan: Patient has kidney dysfunction suspect nephrotic syndrome current creatinine is within normal limits GFR is only mildly decreased. We will avoid any nephrotoxic agents. 24-hour urine for protein is pending. Patient to follow-up with her foam machine operator Dr. Ignacio. Patient had a bilateral renal ultrasound today which was negative. (3) Acute respiratory failure with hypoxia Is this a current diagnosis for this admission?: Yes Plan: Attributed to pulmonary vascular congestion due to heart failure. Patient was started on BiPAP and diuresed and successfully changed to nasal cannula and is comfortable currently. (4) Diabetes Qualifiers: Diabetes mellitus complication status: without complication Is this a current diagnosis for this admission?: Yes Plan: Cussed with patient the medication changes for her Lantus units twice daily
[2018-05-12] MEDS: ATORVASTATIN CALCIUM 40 MG TABLET PO SCH (21:47)
[2018-05-13] MEDS: HYDROCODONE/ACETAMINOPHEN 10-325 MG TABLET PO SCH ×4 (04:09→17:27)
[2018-05-13 05:50] LABS: ALANINE AMINOTRANSFERASE 30 U/L (9-52); ALBUMIN 2.5 g/dL (3.5-5.0); ALKALINE PHOSPHATASE 172 U/L (38-126); ANION GAP 8 (5-19); ASPARTATE AMINO TRANSFERASE 18 U/L (14-36); BILIRUBIN,DIRECT 0.2 mg/dL (0.0-0.4); BILIRUBIN,TOTAL 0.2 mg/dL (0.2-1.3); BLOOD UREA NITROGEN 24 mg/dL (7-20); CALCIUM 8.5 mg/dL (8.4-10.2); CARBON DIOXIDE 30 mmol/L (22-30); CHLORIDE 101 mmol/L (98-107); CHOLESTEROL 113.17 mg/dL (0-200); GLUCOSE 103 mg/dL (75-110); POTASSIUM 4.2 mmol/L (3.6-5.0); SODIUM 139.3 mmol/L (137-145); TOTAL PROTEIN 5.1 g/dL (6.3-8.2); TRIGLYCERIDES 218 mg/dL (<150)
[2018-05-13] MEDS: HEPARIN SOD (PORCINE) 5,000 UNIT/ML 1 ML SYRINGE SUBCUT SCH ×3 (05:51→23:21)
[2018-05-13] MEDS: GABAPENTIN 300 MG CAPSULE PO SCH ×3 (05:51→23:18)
[2018-05-13] MEDS: AMLODIPINE BESYLATE 5 MG TABLET PO SCH ×2 (05:51→17:26)
[2018-05-13 06:01] LABS: DIRECT LDL 45 mg/dL (<100)
[2018-05-13 06:03] LABS: VLDL CHOLESTEROL 43.6 mg/dL (10-31)
[2018-05-13] MEDS: INSULIN GLARGINE,HUM.REC.ANLOG 1,000 UNIT/10 ML UNIT SUBCUT SCH ×2 (10:24→23:21)
[2018-05-13] MEDS: FUROSEMIDE INJ/PF 40 MG/4 ML SDV IV SCH ×2 (10:25→23:18)
[2018-05-13] MEDS: ASPIRIN 81 MG TABLET, ENT COATED PO SCH (10:26)
[2018-05-13] MEDS: ISOSORBIDE MONONITRATE 60 MG TAB.ER.24H PO SCH (10:26)
[2018-05-13] MEDS: LISINOPRIL 10 MG TABLET PO SCH ×2 (10:26→23:19)
[2018-05-13] MEDS: NEBIVOLOL HCL 10 MG TABLET PO SCH (10:26)
[2018-05-13] MEDS: MORPHINE SULFATE 10 MG/ML INJ IV PRN ×3 (10:34→20:06)
--- NOTE | 2018-05-13 11:13 | RADIOLOGY REPORT (SQ) ---
EXAM DESCRIPTION: VENOUS BILATERAL LOWER COMPLETED DATE/TIME: 05/13/2018 11:06 am REASON FOR STUDY: leg pain bilateral and swelling COMPARISON: None. TECHNIQUE: Dynamic and static garza scale and color images acquired of both lower extremity venous sy stems. Selected spectral images acquired with additional compression and augmentation maneuvers. Imag es stored on PACS. LIMITATIONS: None. FINDINGS: RIGHT LEG COMMON FEMORAL AND FEMORAL: Normal phasicity, compression and augmentation. No visualized echogenic m aterial on garza scale. No defects on color images. POPLITEAL: Normal compression and augmentation. No visualized echogenic material on garza scale. No de fects on color images. CALF VESSELS: Peroneal vein not visualized. Normal compression and augmentation. No visualized echo genic material on garza scale. No defects on color image. GSV AND SSV: Normal compression. No visualized echogenic material on garza scale. No defects on color images. ANY DEEP VENOUS INSUFFICIENCY: Not evaluated. ANY EVIDENCE OF POPLITEAL CYST: No. OTHER: No other significant finding. LEFT LEG COMMON FEMORAL AND FEMORAL: Normal phasicity, compression and augmentation. No visualized echogenic m aterial on garza scale. No defects on color images. POPLITEAL: Normal compression and augmentation. No visualized echogenic material on garza scale. No de fects on color images. CALF VESSELS: Peroneal vein not visualized. Normal compression and augmentation. No visualized echo genic material on garza scale. No defects on color images. GSV AND SSV: Normal compression. No visualized echogenic material on garza scale. No defects on color images. ANY DEEP VENOUS INSUFFICIENCY: Not evaluated. ANY EVIDENCE POPLITEAL CYST: No. OTHER: No other significant finding. IMPRESSION: NO EVIDENCE DVT OR SVT IN EITHER LEG. TECHNICAL DOCUMENTATION: JOB ID: [id number] [employer]- All Rights Reserved Reading location - IP/workstation name: [email or web address]
[2018-05-13 13:37] LABS: ANTICHROMATIN AB <0.2 AI (0.0-0.9); CENTROMERE B AB <0.2 AI (0.0-0.9); JO-1 ANTIBODY (ANACOMP) <0.2 AI (0.0-0.9); RNP AB <0.2 AI (0.0-0.9); SCLERODERMA-70 ANTIBODIES <0.2 AI (0.0-0.9); SJOGREN'S ANTI-SS-B AB <0.2 AI (0.0-0.9); SJOGREN'S SS-A ANTIBODY <0.2 AI (0.0-0.9); SMITH AB ANA <0.2 AI (0.0-0.9)
[2018-05-13 14:18] LABS: DNA DOUBLE STRAND ANTIBODY ANA <1 IU/mL (0-9)
[2018-05-13] MEDS: ATORVASTATIN CALCIUM 40 MG TABLET PO SCH (23:18)
--- NOTE | 2018-05-14 00:14 | PDOC PROGRESS REPORT ---
Subjective Progress Note for:: 05/14/18 Subjective:: Patient is a 58-year-old female admitted with fluid overload. Patient had edema in her pelvis. Patient has a history of proteinuria possibly nephrotic syndrome and possible CHF. Patient has recently established herself with a help desk assistant. Patient also does follow with the orthodontic band maker read Echocardiogram done here shows ejection fraction being normal with mild concentric LVH With mild to moderate diastolic dysfunction. Vital signs are stable blood pressure is 158/54. Per cardiology start on combination of nitrates and hydralazine, will start patient on BiDil Half a tablet twice a day. 2 report from nurse this morning the patient's blood sugar was 49 she was alert and oriented. Patient was given dextrose and juice and her sugar came up to the 80s. Patient's long-acting Lantus was discontinued. Patient to continue getting sliding scale coverage. patient denied any history of blood in the urine however has small to moderate blood in the urine. Patient has an appointment with Dr. Ignacio help desk assistant for evaluation of her protein in the urine. Patient was told that the heart doctor said the reason that she was having swelling all over is because of her kidneys and not her heart. We will continue to diurese monitor electrolytes monitor telemetry. I have ordered initial screen for active tissue disease with a ALEA, rheumatoid factor. 05/13/18 pt seen today for f/u of her chf exacerbation. Patient is doing well she still is requiring oxygen getting short of breath. Patient had a 24-hour urine protein done which showed 3850 mg per day protein. Patient was on a different regimen at home and is very concerned about her blood pressure medications changing. Once heart failure is stable patient to be discharged back to her help desk assistant. She reports that she does have a orthodontic band maker in [place] that she does plan to follow-up . Reason For Visit: HEART FAILURE Physical Exam Vital Signs: Temp Pulse Resp BP Pulse Ox 98.0 F 74 18 151/51 H 97 05/13/18 22:50 05/13/18 22:50 05/13/18 22:50 05/13/18 22:50 05/13/18 22:50 Intake & Output 05/12/18 05/13/18 05/14/18 06:59 06:59 06:59 Intake Total 1088 1483 1011 Output Total 2400 1700 1200 Balance -1312 -217 -189 Weight 149 lb 14.629 oz 151 lb 3.794 oz General appearance: PRESENT: no acute distress, cooperative Head exam: PRESENT: atraumatic, normocephalic Eye exam: PRESENT: EOMI Respiratory exam: PRESENT: crackles Cardiovascular exam: PRESENT: RRR Pulses: PRESENT: +2 pedal pulses bilateral GI/Abdominal exam: PRESENT: normal bowel sounds, soft. ABSENT: distended, tenderness Musculoskeletal exam: PRESENT: ambulatory Neurological exam: PRESENT: alert, awake, oriented to person, CN II-XII grossly intact. ABSENT: motor sensory deficit Results Laboratory Results: 05/12/18 12:53 05/13/18 04:40 05/13/18 04:40 Sodium 139.3 Potassium 4.2 Chloride 101 Carbon Dioxide 30 Anion Gap 8 BUN 24 H Creatinine 0.92 Est GFR ( Amer) > 60 Est GFR (Non-Af Amer) > 60 Glucose 103 Calcium 8.5 Total Bilirubin 0.2 AST 18 ALT 30 Alkaline Phosphatase 172 H Total Protein 5.1 L Albumin 2.5 L Triglycerides 218 H Cholesterol 113.17 LDL Cholesterol Direct 45 VLDL Cholesterol 43.6 H HDL Cholesterol 33 L 05/10/18 05/10/18 05/10/18 09:38 15:25 21:30 Troponin I < 0.012 < 0.012 < 0.012 NT-Pro-B Natriuret Pep 05/12/18 05/13/18 12:53 15:55 Troponin I NT-Pro-B Natriuret Pep 3300 H 3280 H Impressions: Chest X-Ray 05/09/18 22:20 IMPRESSION: 1. Moderate bilateral pleural effusions. 2. Chronic appearing interstitial opacities identified. Superimposed acute interstitial pneumonic process is also a possibility. Renal Ultrasound 05/12/18 00:00 IMPRESSION: NORMAL RENAL AND BLADDER ULTRASOUND. Venous Doppler Study 05/13/18 00:00 IMPRESSION: NO EVIDENCE DVT OR SVT IN EITHER LEG. Assessment & Plan - Diagnosis (1) Acute on chronic diastolic (congestive) heart failure Is this a current diagnosis for this admission?: Yes Plan: Patient has had an echocardiogram in 2018 which shows diastolic dysfunction. Continue current regimen with diuretics. Med changes made per cardiology recommendation. (2) Acute renal failure Qualifiers: Acute renal failure type: unspecified Qualified Code(s): N17.9 - Acute kidney failure, unspecified Is this a current diagnosis for this admission?: Yes Plan: Patient has kidney dysfunction suspect nephrotic syndrome current creatinine is within normal limits GFR is only mildly decreased. We will avoid any nephrotoxic agents. 24-hour urine for protein is pending. Patient to follow-up with her help desk assistant Dr. Ignacio. Patient had a bilateral renal ultrasound today which was negative. Discussed with the patient about recommendations for help desk assistant here in town. Patient states that she wants to not establish with a new help desk assistant. (3) Acute respiratory failure with hypoxia Is this a current diagnosis for this admission?: Yes Plan: Attributed to pulmonary vascular congestion due to heart failure. Patient was started on BiPAP and diuresed and successfully changed to nasal cannula and is comfortable currently. (4) Diabetes Qualifiers: Diabetes mellitus complication status: without complication Is this a current diagnosis for this admission?: Yes Plan: Cussed with patient the medication changes for her Lantus units twice daily
[2018-05-14] MEDS: HYDROCODONE/ACETAMINOPHEN 10-325 MG TABLET PO SCH ×5 (00:27→23:00)
--- NOTE | 2018-05-14 01:51 | PROGRESS NOTE E ---
Progress Note NAME: JASMIN MURDOCK : 1960 AGE: 58Y DATE: 05/13/2018 ROOM: 428 SUBJECTIVE: The patient denies any chest pain or discomfort. There is no shortness of breath. There is no PND, orthopnea. There is no leg edema present. The patient has no arrhythmias. There are no TIA or CVA symptoms. OBJECTIVE: GENERAL: On examination the patient is well-built and well-nourished, in no acute distress. VITAL SIGNS: She is afebrile with a temperature of 98.4 degrees Fahrenheit, pulse of 74 beats per minute, blood pressure 151/59, respirations are 16 per minute, O2 saturations are 94% on room air. HEENT: Head is atraumatic, normocephalic. Eyes: Pupils are equal, round and regular, reactive to light and accommodation. Extraocular movements are normal. There is no conjunctival pallor. There is no scleral icterus. ENT is negative. NECK: Supple. There is no JVD. There is no lymphadenopathy. There is no goiter. Carotids are equal. There is no bruit. Trachea is central. LUNGS: Clear to auscultation and percussion. There is no chest wall tenderness. HEART: S1, S2 is heard. There is a murmur of aortic regurgitation present and also a murmur of mitral regurgitation present. There is no S3 gallop. There is no S4 gallop. There is no rub. S1 is normal intensity. ABDOMEN: Soft, nontender. There is no hepatosplenomegaly. Bowel sounds are well heard. EXTREMITIES: Femorals are diminished. There are no femoral bruits. Leg pulses are diminished. There is trace pedal edema bilaterally. There is no cyanosis or clubbing. There is no DVT or cellulitis. There is no calf tenderness. CENTRAL NERVOUS SYSTEM: The patient is conscious, awake, alert and oriented x3 with no focal deficits. PSYCHIATRIC: The patient's judgment and insight are intact. Her affect is normal. DIAGNOSTIC STUDIES: The patient's renal ultrasound shows normal bladder and renal ultrasound. The patient's venous Doppler study shows no evidence of DVT or SVT in either leg. The patient's sodium is 139.3, potassium 4.2, chloride 101, CO2 is 30. The patient's BUN is 24, creatinine 0.92, GFR is greater than 60. Her calcium is 8.5 and her alk-phos is 172, the rest of the liver function tests are normal. The patient's urine 24 hour collection shows a nephrotic range proteinuria. The patient's total protein is 5.1, albumin is 2.5. Triglycerides are 218, total cholesterol is 113.17, HDL cholesterol is low at 33. NT-proBNP is 3280. IMPRESSION: 1. SHORTNESS OF BREATH, MOST LIKELY SECONDARY TO *------* THE PATIENT'S VALVULAR HEART DISEASE. 2. ACUTE ON CHRONIC DIASTOLIC HEART FAILURE, IN HEART FAILURE SECONDARY TO VALVULAR DISEASE. 3. STATUS POST RESPIRATORY FAILURE, AT PRESENT RESOLVED. 4. HYPERTENSIVE URGENCY. Blood pressure much better controlled but still not optimal. 5. DIABETES MELLITUS. 6. MITRAL REGURGITATION. 7. AORTIC REGURGITATION. 8. NEPHROTIC RANGE PROTEINURIA. 9. DYSLIPIDEMIA WITH LOW HDL LEVELS AND MILDLY ELEVATED LDL LEVEL AND ELEVATED TRIGLYCERIDE LEVELS. RECOMMENDATIONS: Renal ultrasound were discussed with the patient as well as the venous Doppler were discussed. In view of the patient's difficulty controlling blood pressure would recommend getting a renal ultrasound to make sure that the patient has no renal artery stenosis. Would recommend nephrology consult in view of the patient's nephrotic range proteinuria. Note medications have been reviewed. Will not increase the patient's medications at present. TIME SPENT: Note 40 minutes spent on this patient with more than 50% of the time spent on direct patient care. Note medical decision making is of high complexity. We will follow with you. Discussed with the hospitalist taking care of the patient. Discussed with the patient, she is agreeable to have a nephrology consult. DICTATING PHYSICIAN: CHARLENE PACKER M.D. [id number] LAUREN#: [id number] ID: [id number] JOB#: [id number] ACCT: [id number] cc: >
[2018-05-14] MEDS: GABAPENTIN 300 MG CAPSULE PO SCH ×3 (05:40→21:48)
[2018-05-14] MEDS: HEPARIN SOD (PORCINE) 5,000 UNIT/ML 1 ML SYRINGE SUBCUT SCH ×3 (05:41→21:49)
[2018-05-14] MEDS: AMLODIPINE BESYLATE 5 MG TABLET PO SCH ×2 (05:41→18:37)
--- NOTE | 2018-05-14 09:18 | RADIOLOGY REPORT (SQ) ---
EXAM DESCRIPTION: DUPLEX ART/CINDY FLOW COMPLETE COMPLETED DATE/TIME: 05/13/2018 10:31 pm REASON FOR STUDY: JORJE/[id number](Renal artery dopplers) COMPARISON: None. TECHNIQUE: Realtime and static grayscale images acquired. Selected color Doppler, velocities and spe ctral images recorded. LIMITATIONS: None. FINDINGS: RIGHT KIDNEY: RENAL ARTERY VELOCITIES: 52 cm/sec. Segmental artery velocity 36 cm/sec. RENAL VEIN: Color doppler flow present, patent. VELOCITY RATIO: 1.1. Normal waveforms. KIDNEY: Normal size. No significant pathology. LEFT KIDNEY: RENAL ARTERY VELOCITIES: 31 cm/sec. Segmental artery velocity 37 cm/sec. RENAL VEIN: Color doppler flow present, patent. VELOCITY RATIO: 10.6. Normal waveforms. KIDNEY: Normal size. No significant pathology. BLADDER: Normal. OTHER: No other significant finding. IMPRESSION: NO DOPPLER EVIDENCE OF HEMODYNAMICALLY SIGNIFICANT RENAL ARTERY STENOSIS. COMMENT: NORMAL RENAL ARTERY/AORTA VELOCITY RATIO IS LESS THAN OR EQUAL TO 3.5. TECHNICAL DOCUMENTATION: JOB ID: [id number] [employer]- All Rights Reserved Reading location - IP/workstation name: [facility]
[2018-05-14] MEDS: FUROSEMIDE INJ/PF 40 MG/4 ML SDV IV SCH (09:53)
[2018-05-14] MEDS: LISINOPRIL 10 MG TABLET PO SCH ×2 (09:54→21:48)
[2018-05-14] MEDS: ISOSORBIDE MONONITRATE 60 MG TAB.ER.24H PO SCH (09:54)
[2018-05-14] MEDS: NEBIVOLOL HCL 10 MG TABLET PO SCH (09:55)
[2018-05-14] MEDS: ASPIRIN 81 MG TABLET, ENT COATED PO SCH (10:06)
[2018-05-14] MEDS: MORPHINE SULFATE 10 MG/ML INJ IV PRN ×3 (10:08→20:06)
[2018-05-14] MEDS: INSULIN GLARGINE,HUM.REC.ANLOG 1,000 UNIT/10 ML UNIT SUBCUT SCH ×2 (10:15→21:49)
[2018-05-14] MEDS: INSULIN LISPRO 100 UNIT/ML 3 ML VIAL SUBCUT PRN (12:01)
--- NOTE | 2018-05-14 20:12 | PDOC PROGRESS REPORT ---
Subjective Progress Note for:: 05/14/18 Subjective:: The patient is up ambulating in the room. She states she is feeling better than when she came to the hospital. She has had no fever chills. Her shortness of breath has improved. She has had no nausea vomiting or diarrhea. No abdominal pain. She is voiding without difficulty. She states she does have some continued swelling and pain in both of her lower extremities. She states that she is recently established with a bee raiser as an outpatient and that she has a ad compositor in [place]. She would like to follow-up with her outpatient physicians and does not want further workup here in the hospital. Reason For Visit: HEART FAILURE Physical Exam Vital Signs: Temp Pulse Resp BP Pulse Ox 98.2 F 73 16 168/62 H 98 05/14/18 15:33 05/14/18 15:33 05/14/18 15:33 05/14/18 15:33 05/14/18 15:33 Intake & Output 05/13/18 05/14/18 05/15/18 06:59 06:59 06:59 Intake Total 1483 1881 474 Output Total 1700 3050 1000 Balance -217 -1169 -526 Weight 68.6 kg 66 kg General appearance: PRESENT: no acute distress, well-developed, well-nourished Head exam: PRESENT: atraumatic, normocephalic Mouth exam: PRESENT: moist, tongue midline Neck exam: ABSENT: carotid bruit, JVD, lymphadenopathy, thyromegaly Respiratory exam: PRESENT: clear to auscultation joshua. ABSENT: rales, rhonchi, wheezes Cardiovascular exam: PRESENT: RRR. ABSENT: diastolic murmur, rubs, systolic murmur GI/Abdominal exam: PRESENT: normal bowel sounds, soft. ABSENT: distended, guarding, mass, organolmegaly, rebound, tenderness Rectal exam: PRESENT: deferred Extremities exam: PRESENT: +1 edema Musculoskeletal exam: PRESENT: ambulatory Neurological exam: PRESENT: alert, awake, oriented to person, oriented to place , oriented to time, oriented to situation, CN II-XII grossly intact. ABSENT: motor sensory deficit Psychiatric exam: PRESENT: appropriate affect, normal mood. ABSENT: homicidal ideation, suicidal ideation Skin exam: PRESENT: dry, intact, warm. ABSENT: cyanosis, rash Results Laboratory Results: 05/12/18 12:53 05/13/18 04:40 05/10/18 05/10/18 05/10/18 09:38 15:25 21:30 Troponin I < 0.012 < 0.012 < 0.012 NT-Pro-B Natriuret Pep 05/12/18 05/13/18 12:53 15:55 Troponin I NT-Pro-B Natriuret Pep 3300 H 3280 H Impressions: Chest X-Ray 05/09/18 22:20 IMPRESSION: 1. Moderate bilateral pleural effusions. 2. Chronic appearing interstitial opacities identified. Superimposed acute interstitial pneumonic process is also a possibility. Renal Ultrasound 05/12/18 00:00 IMPRESSION: NORMAL RENAL AND BLADDER ULTRASOUND. Venous Doppler Study 05/13/18 00:00 IMPRESSION: NO EVIDENCE DVT OR SVT IN EITHER LEG. Renal Artery Duplex 05/13/18 10:20 IMPRESSION: NO DOPPLER EVIDENCE OF HEMODYNAMICALLY SIGNIFICANT RENAL ARTERY STENOSIS. Assessment & Plan - Diagnosis (1) Acute respiratory failure Qualifiers: Respiratory failure complication: hypoxia Qualified Code(s): J96.01 - Acute respiratory failure with hypoxia Is this a current diagnosis for this admission?: Yes Plan: She has been weaned off of oxygen at this point and seems to be doing fairly well. Her respiratory failure was due to decompensated heart failure and volume overload. (2) Acute on chronic diastolic (congestive) heart failure Is this a current diagnosis for this admission?: Yes Plan: She has been diuresed with IV Lasix. I am going to change her over to 40 mg of p.o. Lasix twice daily. If she does well overnight she can hopefully be discharged tomorrow. (3) Acute kidney injury Is this a current diagnosis for this admission?: Yes Plan: Improved with diuresis. Her acute kidney injury is resolved does have nephrotic range proteinuria. She is going to follow-up with her bee raiser as an outpatient. (4) Nephrotic range proteinuria Is this a current diagnosis for this admission?: Yes Plan: She will follow-up with her bee raiser as an outpatient (5) Hypertensive urgency Is this a current diagnosis for this admission?: Yes Plan: Her hypertensive urgency is resolved. Her blood pressure is still quite high. She will continue her current regimen however I am going to increase her p.o. hydralazine to 50 mg every 8 hours. (6) Diabetes mellitus Is this a current diagnosis for this admission?: Yes Plan: Stable (7) Valvular heart disease Is this a current diagnosis for this admission?: Yes Plan: Likely a big factor in her heart failure exacerbation. She will need to be followed closely by cardiology as an outpatient (8) Anemia Is this a current diagnosis for this admission?: Yes Plan: She has a normocytic anemia consistent with chronic disease (9) Full code status Is this a current diagnosis for this admission?: Yes - Time Time Spent with patient: 25-34 minutes - Inpatient Certification Medical Necessity: Other - Inpatient hospitalization remains necessary. Overall the patient is improving. I am going to change her over to oral diuretics today. I am hopeful that she can be discharged home in the morning.
[2018-05-14] MEDS: ATORVASTATIN CALCIUM 40 MG TABLET PO SCH (21:48)
[2018-05-14] MEDS: FUROSEMIDE 40 MG TABLET PO SCH (21:48)
[2018-05-14] MEDS: HYDRALAZINE HCL 25 MG TABLET PO SCH (21:48)
[2018-05-14] MEDS ORDERED: HYDRALAZINE HCL 25 MG TABLET PO SCH (22:00)
[2018-05-14] MEDS: ONDANSETRON 4 MG TAB.RAPDIS PO PRN (22:58)
[2018-05-15] MEDS: MORPHINE SULFATE 10 MG/ML INJ IV PRN ×2 (00:08→07:49)
--- NOTE | 2018-05-15 00:20 | PROGRESS NOTE E ---
Progress Note NAME: JASMIN MURDOCK : 1960 AGE: 58Y DATE: 05/14/2018 ROOM: 428 SUBJECTIVE: Note that the patient denies any chest pain or discomfort. She still complains of a little shortness of breath. There is no PND or orthopnea. Her leg edema is much improved and is only trace edema. The patient refuses to take Imdur, isosorbide mononitrate, stating that she did not need it as per her determination. I did not discuss the rationale of treating her with isosorbide for her mitral regurgitation, since the patient was complaining of headaches and hence it will be not feasible to continue the patient on isosorbide. There is no chest pain or discomfort. Also, the patient does not want to see a desk reporter here. She states that she will see a desk reporter as an outpatient. OBJECTIVE: GENERAL: The patient is well built and well nourished, in no acute distress. VITAL SIGNS: She is afebrile with a temperature of 98.2 degrees Fahrenheit, pulse 73 beats per minute, blood pressure still elevated at 168/62, respirations 16 per minute, O2 sats are 98% on 2 liters nasal cannula. HEENT: Head normocephalic/atraumatic. Eyes: Pupils are equal, round, regular, reactive to light and accommodation. Extraocular movements are normal. There is no conjunctival pallor. There is no scleral icterus. ENT is negative. NECK: Supple. There is no JVD. Carotids are equal. There is no bruit. There is no lymphadenopathy. There is no goiter. Trachea is central. LUNGS: Clear to auscultation and percussion. There is no chest wall tenderness. HEART: S1, S2 heard. There is no S3 gallop. There is no S4 gallop. There is murmur of mitral regurgitation present. There are no signs of aortic regurgitation. S1 is of normal intensity. There is no rub. ABDOMEN: Soft, nontender. There is no hepatosplenomegaly. Bowel sounds are well heard. There are no tender areas or masses. EXTREMITIES: Femorals are diminished. There are no femoral bruits. Leg pulses diminished. There is trace pedal edema bilaterally. There is no cyanosis or clubbing. There is no DVT or cellulitis. There is no calf tenderness. BAND MAKER: The patient is conscious, awake, alert, and oriented x3 with no focal deficit. PSYCHIATRIC: The patient's judgment and insight are intact. Her affect is normal. The patient's bilateral renal artery Dopplers are negative for renal artery stenosis. LABORATORY: The patient's blood sugar is 95 and 230. ASSESSMENT: 1. SHORTNESS OF BREATH, MOST LIKELY SECONDARY TO THE PATIENT'S VALVULAR DISEASE. 2. ACUTE ON CHRONIC DIASTOLIC HEART FAILURE AND SYSTOLIC HEART FAILURE SECONDARY TO VALVULAR DISEASE. At present, compensated. 3. STATUS POST RESPIRATORY FAILURE. At present, resolved. 4. HYPERTENSIVE URGENCY. Blood pressure much improved, but still not optimally controlled. 5. DIVERTICULITIS. 6. MITRAL REGURGITATION. 7. AORTIC REGURGITATION. 8. NEPHROTIC RANGE PROTEINURIA--NEPHROTIC SYNDROME. 9. DYSLIPIDEMIA. Low HDL levels and mildly elevated LDL levels, and elevated triglyceride levels. PLAN: Chest x-ray has been ordered for tomorrow. Will add hydralazine to control the patient's blood pressure. The patient is difficult to treat since she has her own decision making on which medications to take or not. Medications have been reviewed. Medications are adjusted. New medications added. Medical decision making is still highly complex. 40 minutes spent on this patient. More than 50% of the time spent in direct patient care. Will follow with you. DICTATING PHYSICIAN: CHARLENE PACKER M.D. [id number] LAUREN#: [id number] ID: [id number] JOB#: [id number] ACCT: [id number] cc: >
[2018-05-15 05:21] LABS: HEMATOCRIT 27.3 % (36.0-47.0); HEMOGLOBIN 9.5 g/dL (12.0-15.5); MEAN CORPUSCULAR HEMOGLOBIN 28.4 pg (27.0-33.4); MEAN CORPUSCULAR HGB CONC 34.8 g/dL (32.0-36.0); MEAN CORPUSCULAR VOLUME 82 fl (80-97); PLATELET COUNT 196 10^3/uL (150-450); RED BLOOD COUNT 3.34 10^6/uL (3.72-5.28); RED CELL DISTRIBUTION WIDTH 13.6 % (11.5-14.0); WHITE BLOOD COUNT 5.5 10^3/uL (4.0-10.5)
[2018-05-15] MEDS: HYDROCODONE/ACETAMINOPHEN 10-325 MG TABLET PO SCH ×4 (05:52→23:41)
[2018-05-15] MEDS: HYDRALAZINE HCL 25 MG TABLET PO SCH (05:52)
[2018-05-15] MEDS: GABAPENTIN 300 MG CAPSULE PO SCH ×3 (05:52→21:20)
[2018-05-15] MEDS: AMLODIPINE BESYLATE 5 MG TABLET PO SCH ×2 (05:53→17:28)
[2018-05-15] MEDS: HEPARIN SOD (PORCINE) 5,000 UNIT/ML 1 ML SYRINGE SUBCUT SCH ×3 (05:53→21:27)
[2018-05-15 05:55] LABS: ALANINE AMINOTRANSFERASE 30 U/L (9-52); ALBUMIN 2.6 g/dL (3.5-5.0); ALKALINE PHOSPHATASE 166 U/L (38-126); ANION GAP 10 (5-19); ASPARTATE AMINO TRANSFERASE 20 U/L (14-36); BILIRUBIN,DIRECT 0.3 mg/dL (0.0-0.4); BILIRUBIN,TOTAL 0.3 mg/dL (0.2-1.3); BLOOD UREA NITROGEN 28 mg/dL (7-20); CALCIUM 8.4 mg/dL (8.4-10.2); CARBON DIOXIDE 30 mmol/L (22-30); CHLORIDE 98 mmol/L (98-107); GLUCOSE 121 mg/dL (75-110); POTASSIUM 4.7 mmol/L (3.6-5.0); SODIUM 137.8 mmol/L (137-145); TOTAL PROTEIN 5.3 g/dL (6.3-8.2)
[2018-05-15] MEDS: ONDANSETRON 4 MG TAB.RAPDIS PO PRN (09:12)
--- NOTE | 2018-05-15 09:26 | RADIOLOGY REPORT (SQ) ---
EXAM DESCRIPTION: CHEST 2 VIEWS COMPLETED DATE/TIME: 05/15/2018 8:49 am REASON FOR STUDY: chf COMPARISON: CT chest 12/05/2017 Chest films 12/05/2017, 05/09/2018 EXAM PARAMETERS: NUMBER OF VIEWS: two views TECHNIQUE: Digital Frontal and Lateral radiographic views of the chest acquired. RADIATION DOSE: NA LIMITATIONS: none FINDINGS: LUNGS AND PLEURA: Trace bilateral pleural effusions are present. Minimal bibasilar airspace disease is present, atelectasis versus pneumonia. Remainder of the lungs are grossly clear. No pneumothorax. MEDIASTINUM AND HILAR STRUCTURES: No masses or contour abnormalities. HEART AND VASCULAR STRUCTURES: No cardiomegaly BONES: No acute findings. HARDWARE: Clips right upper quadrant post cholecystectomy OTHER: No other significant finding. IMPRESSION: Trace bilateral pleural effusions with bibasilar airspace disease. This less prominent compared to 05/09/2018. TECHNICAL DOCUMENTATION: JOB ID: [id number] [employer]- All Rights Reserved Reading location - IP/workstation name: [email or web address]
[2018-05-15] MEDS: INSULIN GLARGINE,HUM.REC.ANLOG 1,000 UNIT/10 ML UNIT SUBCUT SCH ×2 (11:23→21:21)
[2018-05-15] MEDS: NEBIVOLOL HCL 10 MG TABLET PO SCH (11:24)
[2018-05-15] MEDS: LISINOPRIL 10 MG TABLET PO SCH ×2 (11:24→21:20)
[2018-05-15] MEDS: ASPIRIN 81 MG TABLET, ENT COATED PO SCH (11:24)
[2018-05-15] MEDS: FUROSEMIDE 40 MG TABLET PO SCH (11:24)
[2018-05-15] MEDS ORDERED: PROMETHAZINE HCL INJ 25 MG/1 ML VIAL IV PRN (13:30)
[2018-05-15] MEDS: HYDRALAZINE HCL 50 MG TABLET PO SCH ×2 (15:13→21:20)
--- NOTE | 2018-05-15 16:04 | RADIOLOGY REPORT (SQ) ---
EXAM DESCRIPTION: CT CHEST WITHOUT COMPLETED DATE/TIME: 05/15/2018 3:54 pm REASON FOR STUDY: Hi-Res.Pumonry Fibrosis / SOB COMPARISON: 05/15/2018 TECHNIQUE: Prone and supine high resolution technique imaging performed through the lungs windowed f or lung windows. Additional focused imaging through the levels of the aortic arch, sajan and diaphr agm. Limited evaluation of the mediastinum. All CT scanners at this facility use dose modulation, iterative reconstruction, and/or weight based d osing when appropriate to reduce radiation dose to as low as reasonably achievable (ALARA). [facility]: Dose Right [facility]: CareDose [facility]: Dose Right [facility]: Teradose 4D [facility]: [employer] RADIATION DOSE: CT Rad equipment meets quality standard of care and radiation dose reduction techniq ues were employed. CTDIvol: 2.2 mGy. DLP: 118 mGy-cm. mGy. LIMITATIONS: None. FINDINGS: LUNGS AND PLEURA: Moderate bilateral pleural effusions. Septal lines present. Fluid in t he fissures. Air bronchograms at the left base. LIMITED MEDIASTINUM: No masses. BONES: No significant findings. OTHER: No other significant finding. IMPRESSION: Findings most likely related to vascular congestion and interstitial pulmonary edema. B ilateral pleural effusions. Likely pneumonia at the left base. No findings to support pulmonary fibrosis. TECHNICAL DOCUMENTATION: JOB ID: [id number] Quality ID # [id number]: Final reports with documentation of one or more dose reduction techniques (e.g., Au tomated exposure control, adjustment of the mA and/or kV according to patient size, use of iterative reconstruction technique) 2010 [employer]- All Rights Reserved Reading location - IP/workstation name: [email or web address]
--- NOTE | 2018-05-15 18:24 | PDOC PROGRESS REPORT ---
Subjective Progress Note for:: 05/15/18 Subjective:: The patient is an unfortunate 58-year-old female who was admitted to the hospital with a congestive heart failure exacerbation. She has a history of proteinuria that is approaching nephrotic range. She follows with cardiology in [place] and recently established with a financial recording clerk as an outpatient. She was admitted to the hospital. She had a 2D echocardiogram which revealed normal LV function. She was found to have significant valvular disease. She has been followed closely by cardiology. Initially we were just thinking about getting the patient home and out as the patient really wants further workup to be performed by her outpatient physicians. However overnight the patient's kidney function has worsened. Cardiology is recommending that we get nephrology to take a look at her here in the hospital and a consult has been placed to Dr. Ellison. Today when I saw the patient she states she just does not feel good. She feels weak. She has had no fever or shaking chills. No chest pain she occasionally is short of breath especially when she gets up and ambulates. She has a little bit of a cough. No nausea vomiting or diarrhea. She has no appetite. No urinary complaints. She does continue to have lower extremity swelling in her legs hurt. Reason For Visit: HEART FAILURE Physical Exam Vital Signs: Temp Pulse Resp BP Pulse Ox 98.5 F 75 16 163/48 H 95 05/15/18 16:00 05/15/18 16:00 05/15/18 16:00 05/15/18 16:00 05/15/18 16:00 Intake & Output 05/14/18 05/15/18 05/16/18 06:59 06:59 06:59 Intake Total 1881 1395 472 Output Total 3050 1800 400 Balance -1169 -405 72 Weight 66 kg 67.8 kg General appearance: PRESENT: no acute distress, well-developed, well-nourished Head exam: PRESENT: atraumatic - . Medicare, normocephalic Mouth exam: PRESENT: moist, tongue midline Neck exam: ABSENT: carotid bruit, JVD, lymphadenopathy, thyromegaly Respiratory exam: PRESENT: crackles - She does have some crackles in the lower bases bilaterally. ABSENT: rales, rhonchi, wheezes Cardiovascular exam: PRESENT: RRR. ABSENT: diastolic murmur, rubs, systolic murmur Pulses: PRESENT: normal dorsalis pedis pul GI/Abdominal exam: PRESENT: normal bowel sounds, soft. ABSENT: distended, guarding, mass, organolmegaly, rebound, tenderness Rectal exam: PRESENT: deferred Extremities exam: PRESENT: calf tenderness, pedal edema Musculoskeletal exam: PRESENT: ambulatory Neurological exam: PRESENT: alert, awake, oriented to person, oriented to place , oriented to time, oriented to situation, CN II-XII grossly intact. ABSENT: motor sensory deficit Psychiatric exam: PRESENT: appropriate affect, normal mood. ABSENT: homicidal ideation, suicidal ideation Skin exam: PRESENT: abrasion Results Laboratory Results: 05/15/18 04:10 05/15/18 04:10 05/15/18 05/15/18 04:10 04:10 WBC 5.5 RBC 3.34 L Hgb 9.5 L Hct 27.3 L MCV 82 MCH 28.4 MCHC 34.8 RDW 13.6 Plt Count 196 Sodium 137.8 Potassium 4.7 Chloride 98 Carbon Dioxide 30 Anion Gap 10 BUN 28 H Creatinine 1.21 Est GFR ( Amer) 56 L Est GFR (Non-Af Amer) 46 L Glucose 121 H Calcium 8.4 Phosphorus 5.0 H Magnesium 2.1 Total Bilirubin 0.3 AST 20 ALT 30 Alkaline Phosphatase 166 H Total Protein 5.3 L Albumin 2.6 L 05/10/18 05/10/18 05/10/18 09:38 15:25 21:30 Troponin I < 0.012 < 0.012 < 0.012 NT-Pro-B Natriuret Pep 05/12/18 05/13/18 12:53 15:55 Troponin I NT-Pro-B Natriuret Pep 3300 H 3280 H Impressions: Renal Ultrasound 05/12/18 00:00 IMPRESSION: NORMAL RENAL AND BLADDER ULTRASOUND. Venous Doppler Study 05/13/18 00:00 IMPRESSION: NO EVIDENCE DVT OR SVT IN EITHER LEG. Renal Artery Duplex 05/13/18 10:20 IMPRESSION: NO DOPPLER EVIDENCE OF HEMODYNAMICALLY SIGNIFICANT RENAL ARTERY STENOSIS. Chest CT 05/15/18 00:00 IMPRESSION: Findings most likely related to vascular congestion and interstitial pulmonary edema. Bilateral pleural effusions. Likely pneumonia at the left base. No findings to support pulmonary fibrosis. Chest X-Ray 05/15/18 07:00 IMPRESSION: Trace bilateral pleural effusions with bibasilar airspace disease. This less prominent compared to 05/09/2018. Assessment & Plan - Diagnosis (1) Acute respiratory failure Qualifiers: Respiratory failure complication: hypoxia Qualified Code(s): J96.01 - Acute respiratory failure with hypoxia Is this a current diagnosis for this admission?: Yes Plan: The patient is still requiring oxygen. Her acute respiratory failure is likely due to congestive heart failure. CT scan could not rule out a pneumonia. It was felt that vascular congestion was causing the abnormalities. The patient does not have a white blood cell count or fever. I am going to hold off on antibiotics for now. (2) Acute on chronic diastolic (congestive) heart failure Is this a current diagnosis for this admission?: Yes Plan: Her diuresis has been held in light of her worsening kidney function. Cardiology is following and I certainly appreciate Dr. Villasenor's assistance (3) Acute kidney injury Is this a current diagnosis for this admission?: Yes Plan: Patient with slight worsening of her creatinine today. This could just be due to overdiuresis although she still has quite a bit of congestion on chest. At the advice of Dr. Villasenor I am going to consult Dr. Ellison for his recommendations. She does have nephrotic range proteinuria (4) Nephrotic range proteinuria Is this a current diagnosis for this admission?: Yes Plan: As above. Dr. Ellison has been consulted for his recommendations (5) Hypertensive urgency Is this a current diagnosis for this admission?: Yes Plan: Improved. Her blood pressure is still quite high. I increased her hydralazine yesterday. At this point she is on 5 different blood pressure medications. Renal ultrasound and renal Dopplers were normal. I will defer to cardiology as well as nephrology on how to manage her blood pressure. I will make no changes to her regimen today. Overall her blood pressure has improved since the time of admission (6) Diabetes mellitus Is this a current diagnosis for this admission?: Yes Plan: Stable (7) Valvular heart disease Is this a current diagnosis for this admission?: Yes Plan: Likely a big factor in her heart failure exacerbation. She will need to be followed closely by cardiology as an outpatient (8) Anemia Is this a current diagnosis for this admission?: Yes Plan: She has a normocytic anemia consistent with chronic disease (9) Full code status Is this a current diagnosis for this admission?: Yes - Time Time Spent with patient: 25-34 minutes - Inpatient Certification Medical Necessity: Need Close Monitoring Due to Risk of Patient Decompensation - Inpatient hospitalization remains necessary. Overall the patient is not feeling any better than when she came into the hospital. Her breathing is somewhat improved but now she has worsening of her renal function. We need evaluation by nephrology. She still has quite a bit of fluid per her chest CT. She may require further parenteral diuresis. Timing of disposition will be determined by her clinical course, Other
[2018-05-15] MEDS: ATORVASTATIN CALCIUM 40 MG TABLET PO SCH (21:20)
[2018-05-16] MEDS: MORPHINE SULFATE 10 MG/ML INJ IV PRN ×4 (01:08→21:28)
--- NOTE | 2018-05-16 03:55 | PROGRESS NOTE E ---
Progress Note NAME: JASMIN MURDOCK : 1960 AGE: 58Y DATE: 05/15/2018 ROOM: 428 SUBJECTIVE: The patient denies any chest pain or discomfort. There is no shortness of breath. There is no PND or orthopnea. There is no arrhythmia seen on the monitor. Her leg edema is only trace at present. OBJECTIVE: VITAL SIGNS: She is afebrile with a temperature of 98.9 degrees Fahrenheit. Pulse is 74 beats per minute. Blood pressure is 159/56. Her respirations are 18 per minute. O2 sats are 98% on 2 L nasal cannula. HEENT: Head is atraumatic, normocephalic. Eyes: Pupils are equal, round, regular, reactive to light accommodation. Extraocular movements are normal. There is no conjunctival pallor. There is no scleral icterus. ENT is negative. NECK: Supple. There is no JVD. Carotids are equal. There is no bruit. There is no lymphadenopathy. There is no *------*. Trachea is central. LUNGS: Show a few dry, leathery rales in the bases. There are no rales of CHF. This seems more like an interstitial fibrosis rather than congestive heart failure. HEART: S1, S2 are heard. There is a murmur of aortic regurgitation present. There is also a murmur of mitral regurgitation present. There is no S3 gallop. There is no S4 gallop. There is no rub. S1 is of normal intensity. ABDOMEN: Soft, nontender. There is no hepatosplenomegaly. Bowel sounds well heard. EXTREMITIES: Femorals are diminished. There are no femoral bruits. Leg pulses are diminished. There is no pedal edema. There is no cyanosis or clubbing. There is no DVT or cellulitis. There is no calf tenderness. CENTRAL NERVOUS SYSTEM: The patient is conscious, awake, alert, oriented x3 with no focal deficit. PSYCHIATRIC: The patient's judgment and insight are intact. Her affect was normal. X-RAY STUDIES: The patient's chest x-ray is reported as trace bilateral pleural effusion present, minimal bibasilar air space disease present; atelectasis versus pneumonia. There is no CHF. The patient's chest CT is reported as moderate bilateral pleural effusions. Septal lines present. Fluid in the *------*. Air bronchogram at the left base. Findings most likely related to vascular congestion and interstitial pulmonary edema. No findings to support pulmonary fibrosis. LABORATORY DATA: The patient's white count is 5500. Hemoglobin is 9.5. Hematocrit is 27.3. Platelet count is 196,000. The patient's sodium is 137.8. Potassium is 4.7. Chloride is 98. CO2 is 30. The patient's BUN is 28. Creatinine is 1.21. GFR has come down to 46 mL, which is acute renal failure, most likely secondary to overdiuresis. Glucose is 121. Calcium is 8.4. Phosphorus is 5.0. Magnesium is 2.1. The liver function tests are normal except for an elevated alk phos of 166. Her albumin is 2.6. Total protein is 5.3. ASSESSMENT: 1. SHORTNESS OF BREATH, MOST LIKELY SECONDARY TO THE PATIENT'S VALVULAR DISEASE AND LV DIASTOLIC HEART FAILURE. 2. CHRONIC DIASTOLIC HEART FAILURE. ACUTE PHASE HAS SUBSIDED. 3. ABNORMAL CT SCAN AND CHEST X-RAY. THERE IS NO CLINICAL EVIDENCE OF CONGESTIVE HEART FAILURE. 4. HYPERTENSIVE URGENCY, AT PRESENT MUCH BETTER. 5. DIABETES MELLITUS. 6. MITRAL REGURGITATION. 7. AORTIC REGURGITATION. 8. NEPHROTIC RANGE PROTEINURIA. 9. ACUTE RENAL FAILURE, MOST LIKELY SECONDARY TO OVERDIURESIS. 10. DYSLIPIDEMIA. PLAN: I will discuss the CT scan findings with the radiologist. Note: Nephrology consult has been requested. TIME SPENT: Forty minutes spent on the patient. Her medications have been reviewed. More than 50% of the time spent on direct patient care. Will follow with you. Discussed with the attending physician on the case. Thanking you. DICTATING PHYSICIAN: CHARLENE PACKER M.D. [id number] PHY#: [id number] ID: [id number] JOB#: [id number] ACCT: [id number] cc: >
[2018-05-16] MEDS: HYDROCODONE/ACETAMINOPHEN 10-325 MG TABLET PO SCH ×4 (06:03→23:11)
[2018-05-16] MEDS: HEPARIN SOD (PORCINE) 5,000 UNIT/ML 1 ML SYRINGE SUBCUT SCH ×3 (06:03→21:27)
[2018-05-16] MEDS: AMLODIPINE BESYLATE 5 MG TABLET PO SCH ×2 (06:04→17:37)
[2018-05-16] MEDS: HYDRALAZINE HCL 50 MG TABLET PO SCH ×3 (06:04→21:26)
[2018-05-16] MEDS: GABAPENTIN 300 MG CAPSULE PO SCH ×3 (06:04→21:26)
[2018-05-16] MEDS: INSULIN GLARGINE,HUM.REC.ANLOG 1,000 UNIT/10 ML UNIT SUBCUT SCH ×2 (10:16→21:27)
[2018-05-16] MEDS: LISINOPRIL 10 MG TABLET PO SCH ×2 (10:17→21:26)
[2018-05-16] MEDS: NEBIVOLOL HCL 10 MG TABLET PO SCH (10:18)
[2018-05-16] MEDS: ASPIRIN 81 MG TABLET, ENT COATED PO SCH (10:18)
[2018-05-16] MEDS: HYDROCHLOROTHIAZIDE 25 MG TABLET PO SCH (10:20)
[2018-05-16] MEDS: ONDANSETRON 4 MG TAB.RAPDIS PO PRN (13:52)
--- NOTE | 2018-05-16 19:06 | PDOC PROGRESS REPORT ---
Subjective Progress Note for:: 05/16/18 Subjective:: Doing better, breathing better. No problem with urination. No dysuria polyuria , no urinary frequency. Drinking okay and trying to keep herself hydrated. Denies fever or chills, no chest pain or shortness of breath or palpitations. Denies diarrhea. Reason For Visit: HEART FAILURE Physical Exam Vital Signs: Temp Pulse Resp BP Pulse Ox 98.2 F 71 16 141/53 H 93 05/16/18 15:25 05/16/18 15:25 05/16/18 15:25 05/16/18 15:25 05/16/18 15:25 Intake & Output 05/15/18 05/16/18 05/17/18 06:59 06:59 06:59 Intake Total 1395 856 990 Output Total 2559 387 6569 Balance -405 456 -1010 Weight 67.8 kg 67.8 kg General appearance: PRESENT: no acute distress, well-developed, well-nourished Head exam: PRESENT: atraumatic - normocephalic Mouth exam: PRESENT: moist Neck exam: ABSENT: carotid bruit, JVD, lymphadenopathy, thyromegaly Respiratory exam: PRESENT: crackles - She does have some crackles in the lower bases bilaterally. ABSENT: rales, rhonchi, wheezes Cardiovascular exam: PRESENT: RRR, 1/6 aortic insufficiency murmur. ABSENT: Rubs, gallop Pulses: PRESENT: normal dorsalis pedis pulses GI/Abdominal exam: PRESENT: normal bowel sounds, soft. ABSENT: distended, guarding, mass, organolmegaly, rebound, tenderness Rectal exam: PRESENT: deferred Extremities exam: PRESENT: calf tenderness, pedal edema Musculoskeletal exam: PRESENT: ambulatory Neurological exam: PRESENT: alert, awake, oriented to person, oriented to place , oriented to time, oriented to situation, CN II-XII grossly intact. ABSENT: motor sensory deficit Psychiatric exam: PRESENT: appropriate affect, normal mood. ABSENT: homicidal ideation, suicidal ideation Skin exam: PRESENT: abrasion Results Laboratory Results: 05/15/18 04:10 05/15/18 04:10 05/10/18 05/10/18 05/10/18 09:38 15:25 21:30 Troponin I < 0.012 < 0.012 < 0.012 NT-Pro-B Natriuret Pep 05/12/18 05/13/18 12:53 15:55 Troponin I NT-Pro-B Natriuret Pep 3300 H 3280 H Impressions: Renal Ultrasound 05/12/18 00:00 IMPRESSION: NORMAL RENAL AND BLADDER ULTRASOUND. Venous Doppler Study 05/13/18 00:00 IMPRESSION: NO EVIDENCE DVT OR SVT IN EITHER LEG. Renal Artery Duplex 05/13/18 10:20 IMPRESSION: NO DOPPLER EVIDENCE OF HEMODYNAMICALLY SIGNIFICANT RENAL ARTERY STENOSIS. Chest CT 05/15/18 00:00 IMPRESSION: Findings most likely related to vascular congestion and interstitial pulmonary edema. Bilateral pleural effusions. Likely pneumonia at the left base. No findings to support pulmonary fibrosis. Chest X-Ray 05/15/18 07:00 IMPRESSION: Trace bilateral pleural effusions with bibasilar airspace disease. This less prominent compared to 05/09/2018. Assessment & Plan - Plan Summary Plan Summary: (1) Acute respiratory failure Qualifiers: Respiratory failure complication: hypoxia Qualified Code(s): J96.01 - Acute respiratory failure with hypoxia Is this a current diagnosis for this admission?: Yes Plan: The patient is still requiring oxygen, but improving. Her acute respiratory failure is likely due to congestive heart failure. CT scan could not rule out a pneumonia. It was felt that vascular congestion was causing the abnormalities. The patient does not have a white blood cell count or fever. We are going to hold off on antibiotics for now. (2) Acute on chronic diastolic (congestive) heart failure Is this a current diagnosis for this admission?: Yes Plan: Her diuresis has been held in light of her worsening kidney function. Cardiology Dr. Villasenor is following. (3) Acute kidney injury Is this a current diagnosis for this admission?: Yes Plan: Patient with slight worsening of her creatinine yesterday. This could just be due to overdiuresis although she still has quite a bit of congestion on chest imaging. At the advice of Dr. Hamilton Ellison of nephrology was currently consulted by the provider from yesterday for his recommendations. He is here to see patient. She does have nephrotic range proteinuria. Will also recheck Chem-7 today as one was not done. (4) Nephrotic range proteinuria Is this a current diagnosis for this admission?: Yes Plan: As above. Dr. Ellison was apparently consulted for his recommendations but he is yet to see the patient. I have had him paged and awaiting his response. (5) Hypertensive urgency Is this a current diagnosis for this admission?: Yes Plan: Improved. At this point she is on 5 different blood pressure medications. Renal ultrasound and renal Dopplers were normal. Will appreciate cardiology and nephrology inputs. (6) Diabetes mellitus Is this a current diagnosis for this admission?: Yes Plan: Stable (7) Valvular heart disease Is this a current diagnosis for this admission?: Yes Plan: Likely a big factor in her heart failure exacerbation. She will need to be followed closely by cardiology as an outpatient (8) Anemia Is this a current diagnosis for this admission?: Yes Plan: She has a normocytic anemia consistent with chronic disease (9) Full code status Is this a current diagnosis for this admission?: Yes
[2018-05-16 19:37] LABS: ANION GAP 8 (5-19); BLOOD UREA NITROGEN 32 mg/dL (7-20); CALCIUM 8.6 mg/dL (8.4-10.2); CARBON DIOXIDE 31 mmol/L (22-30); CHLORIDE 97 mmol/L (98-107); GLUCOSE 127 mg/dL (75-110); SODIUM 135.7 mmol/L (137-145)
[2018-05-16] MEDS: ATORVASTATIN CALCIUM 40 MG TABLET PO SCH (21:26)
[2018-05-16] MEDS: MAG HYDROX/AL HYDROX/SIMETH SUSP 30 ML UDCUP PO PRN (23:48)
[2018-05-17] MEDS: HEPARIN SOD (PORCINE) 5,000 UNIT/ML 1 ML SYRINGE SUBCUT SCH ×3 (05:46→21:00)
[2018-05-17] MEDS: GABAPENTIN 300 MG CAPSULE PO SCH ×3 (06:05→21:06)
[2018-05-17] MEDS: AMLODIPINE BESYLATE 5 MG TABLET PO SCH ×2 (06:05→16:59)
[2018-05-17] MEDS: HYDROCODONE/ACETAMINOPHEN 10-325 MG TABLET PO SCH ×2 (06:05→11:45)
[2018-05-17] MEDS: HYDRALAZINE HCL 50 MG TABLET PO SCH ×3 (06:06→21:05)
--- NOTE | 2018-05-17 06:26 | PROGRESS NOTE E ---
Progress Note NAME: JASMIN MURDOCK : 1960 AGE: 58Y DATE: 05/16/2018 ROOM: 428 SUBJECTIVE: The patient denies any chest pain or discomfort. There is no PND, orthopnea. There is no arrhythmia seen on the monitor. There is, at present, only trace leg edema. There is no TIA or CVA symptoms. There is no palpitation, near syncope, or syncope. There is no shortness of breath. OBJECTIVE: GENERAL: The patient is well built and well nourished, at present in no acute distress. VITAL SIGNS: She is a febrile with a temperature of 98.5 degrees Fahrenheit, pulse is 69 beats per minute, blood pressure is 154/60, respirations are 17 per minute, O2 sats are 97% on 2 L nasal cannula. HEAD: Atraumatic, normocephalic. EYES: Pupils are equal, round, regular, reactive to light and accommodation. Extraocular movements are normal. There is no conjunctival pallor. There is no scleral icterus. ENT: Negative. NECK: Supple. There is no JVD. There is no lymphadenopathy. There is no goiter. Carotids are equal. There is no bruit. Trachea is central. LUNGS: Clear to auscultation and percussion. There is no chest wall tenderness. CARDIOVASCULAR: S1 and S2 are heard. There is murmur of aortic regurgitation and murmur of mitral regurgitation present. There is no S3 gallop. There is no S4 gallop. There is no rub. S1 is of normal intensity. ABDOMEN: Soft, nontender. There is no hepatosplenomegaly. Bowel sounds are well heard. EXTREMITIES: Femorals are diminished. There are no femoral bruits. Leg pulses are diminished. There is trace pedal edema bilaterally. There is no cyanosis or clubbing. There is no DVT or cellulitis. There is no calf tenderness. CENTRAL NERVOUS SYSTEM: The patient is conscious, awake, alert, oriented x3 with no focal deficit. PSYCHIATRIC: The patient's judgment and insight are intact. Her affect is normal. INTAKE/OUTPUT: The patient's 24-hour intake is 856 mL, output is 400 mL. DIAGNOSTIC STUDIES: The sodium is 135.7, potassium 5.0, chloride 97, CO2 is 31. The patient's BUN is 32, creatinine is 1.07. GFR has come up to 53 mL. Glucose is 127. The patient's calcium is 8.6. IMPRESSION: 1. SHORTNESS OF BREATH SECONDARY TO VALVULAR DISEASE AND LV DIASTOLIC DYSFUNCTION. 2. ACUTE ON CHRONIC DIASTOLIC HEART FAILURE, AT PRESENT COMPENSATED. 3. STATUS POST RESPIRATORY FAILURE, AT PRESENT RESOLVED. 4. HYPERTENSIVE URGENCY, AT PRESENT BLOOD PRESSURE MUCH IMPROVED, BUT NOT OPTIMALLY CONTROLLED. 5. DIABETES MELLITUS. 6. MITRAL REGURGITATION. 7. AORTIC REGURGITATION. 8. NEPHROTIC RANGE PROTEINURIA. 9. DYSLIPIDEMIA WITH LOW HDL LEVELS AND MILDLY ELEVATED LDL LEVEL AND ELEVATED TRIGLYCERIDE LEVELS. 10. ACUTE RENAL FAILURE SECONDARY TO OVERDIURESIS. NOW WITH WITHHOLDING OF THE DIURETICS, THE PATIENT'S GFR HAS IMPROVED. PLAN: NOTE: There is no Nephrology consult available. The patient will see her own Nephrology as an outpatient. She also will follow with the insole lip turner. NOTE: Thirty five minutes spent on this patient with more than 50% of the time spent in direct patient care. Medical decision making is of moderate complexity and medications have been reviewed. Discussed with the hospitalist will sign off the case. DICTATING PHYSICIAN: CHARLENE PACKER M.D. [id number] LAUREN#: [id number] ID: [id number] JOB#: [id number] ACCT: [id number] cc: >
--- NOTE | 2018-05-17 09:01 | RADIOLOGY REPORT (SQ) ---
EXAM DESCRIPTION: CHEST 2 VIEWS COMPLETED DATE/TIME: 05/17/2018 8:36 am REASON FOR STUDY: CHF, possible pneumonia COMPARISON: 05/15/2018 EXAM PARAMETERS: NUMBER OF VIEWS: two views TECHNIQUE: Digital Frontal and Lateral radiographic views of the chest acquired. RADIATION DOSE: NA LIMITATIONS: none FINDINGS: LUNGS AND PLEURA: Similar small bilateral pleural effusions. Mild interstitial -reticulon odular prominence has increased since the prior study. No consolidation. No pneumothorax. MEDIASTINUM AND HILAR STRUCTURES: Stable. HEART AND VASCULAR STRUCTURES: Stable. BONES: No acute findings. HARDWARE: None in the chest. OTHER: No other significant finding. IMPRESSION: Similar small bilateral pleural effusions. Mild interstitial -reticulonodular prominenc e has increased since the prior study. No consolidation. TECHNICAL DOCUMENTATION: JOB ID: [id number]- All Rights Reserved Reading location - IP/workstation name: [email or web address]
[2018-05-17] MEDS: LISINOPRIL 10 MG TABLET PO SCH ×2 (09:03→21:06)
[2018-05-17] MEDS: NEBIVOLOL HCL 10 MG TABLET PO SCH (09:03)
[2018-05-17] MEDS: HYDROCHLOROTHIAZIDE 25 MG TABLET PO SCH (09:03)
[2018-05-17] MEDS: ASPIRIN 81 MG TABLET, ENT COATED PO SCH (09:04)
[2018-05-17] MEDS: MORPHINE SULFATE 10 MG/ML INJ IV PRN ×3 (09:04→19:37)
[2018-05-17] MEDS: INSULIN GLARGINE,HUM.REC.ANLOG 1,000 UNIT/10 ML UNIT SUBCUT SCH ×2 (09:04→21:06)
--- NOTE | 2018-05-17 11:52 | PDOC PROGRESS REPORT ---
Subjective Progress Note for:: 05/17/18 Subjective:: The patient is an unfortunate 58-year-old female who was admitted to the hospital with a congestive heart failure exacerbation. She has a history of proteinuria that is approaching nephrotic range. She follows with cardiology in [place] and recently established with a records section supervisor as an outpatient. Her 2D echocardiogram revealed normal LV function. She was found to have significant valvular disease. She has been followed closely by cardiology. Patient states she has a significant swelling as outpatient, on Lasix 80 mg twice daily. She was treated with IV Lasix, but the patient's kidney function worsened. Lasix was held, renal function has normalized again. Today patient complains of her feet swelling up again. Repeat chest x-ray reveals no pneumonia, but still with some fluid. Patient denies chest pain or palpitations, has shortness of breath with limited efforts. She has dry cough, no fever or chills, no nausea vomiting. She is urinating okay. Reason For Visit: HEART FAILURE Physical Exam Vital Signs: Temp Pulse Resp BP Pulse Ox 98.5 F 74 17 154/60 H 97 05/16/18 19:43 05/17/18 07:00 05/16/18 19:43 05/16/18 19:43 05/16/18 19:43 Intake & Output 05/16/18 05/17/18 05/18/18 06:59 06:59 06:59 Intake Total 856 1865 Output Total 400 2300 Balance 456 -435 Weight 67.8 kg 68.3 kg General appearance: PRESENT: no acute distress, well-developed, well-nourished Head exam: PRESENT: atraumatic - normocephalic Mouth exam: PRESENT: moist Neck exam: ABSENT: carotid bruit, JVD, lymphadenopathy, thyromegaly Respiratory exam: PRESENT: crackles - She does have some crackles in the lower bases bilaterally. ABSENT: rhonchi, wheezes Cardiovascular exam: PRESENT: RRR, 1/6 aortic insufficiency murmur. ABSENT: Rubs, gallop Pulses: PRESENT: normal dorsalis pedis pulses GI/Abdominal exam: PRESENT: normal bowel sounds, soft. ABSENT: distended, guarding, mass, organolmegaly, rebound, tenderness Rectal exam: PRESENT: deferred Extremities exam: PRESENT: 1+ pedal edema Musculoskeletal exam: PRESENT: ambulatory Neurological exam: PRESENT: alert, awake, oriented to person, oriented to place , oriented to time, oriented to situation, CN II-XII grossly intact. ABSENT: motor sensory deficit Psychiatric exam: PRESENT: appropriate affect, normal mood. ABSENT: homicidal ideation, suicidal ideation Skin exam: PRESENT: abrasion Results Laboratory Results: 05/15/18 04:10 05/16/18 19:12 05/16/18 19:12 Sodium 135.7 L Potassium 5.0 Chloride 97 L Carbon Dioxide 31 H Anion Gap 8 BUN 32 H Creatinine 1.07 Est GFR ( Amer) > 60 Est GFR (Non-Af Amer) 53 L Glucose 127 H Calcium 8.6 05/10/18 05/10/18 05/10/18 09:38 15:25 21:30 Troponin I < 0.012 < 0.012 < 0.012 NT-Pro-B Natriuret Pep 05/12/18 05/13/18 12:53 15:55 Troponin I NT-Pro-B Natriuret Pep 3300 H 3280 H Impressions: Renal Ultrasound 05/12/18 00:00 IMPRESSION: NORMAL RENAL AND BLADDER ULTRASOUND. Venous Doppler Study 05/13/18 00:00 IMPRESSION: NO EVIDENCE DVT OR SVT IN EITHER LEG. Renal Artery Duplex 05/13/18 10:20 IMPRESSION: NO DOPPLER EVIDENCE OF HEMODYNAMICALLY SIGNIFICANT RENAL ARTERY STENOSIS. Chest CT 05/15/18 00:00 IMPRESSION: Findings most likely related to vascular congestion and interstitial pulmonary edema. Bilateral pleural effusions. Likely pneumonia at the left base. No findings to support pulmonary fibrosis. Chest X-Ray 05/17/18 00:00 IMPRESSION: Similar small bilateral pleural effusions. Mild interstitial - reticulonodular prominence has increased since the prior study. No consolidation. Assessment & Plan - Plan Summary Plan Summary: (1) Acute respiratory failure Qualifiers: Respiratory failure complication: hypoxia Qualified Code(s): J96.01 - Acute respiratory failure with hypoxia Is this a current diagnosis for this admission?: Yes Plan: Patient is still requiring oxygen, but improved. Her acute respiratory failure is likely due to congestive heart failure. CT scan could not rule out a pneumonia, but it was thought likely fluid as patient had no white count, no fever. She was diuresed and repeat chest xray today revealing no pneumonia. (2) Acute on chronic diastolic (congestive) heart failure Is this a current diagnosis for this admission?: Yes Plan: Her diuresis was been held in light of her worsening kidney function. However patient is feeling up again and renal function on her improved. She was on Lasix 80 mg p.o. twice daily as outpatient. Will restart Lasix at 60 mg p.o. twice daily. She was seen records section supervisor and validation leader as outpatient. States she was on this with HCTZ as outpatient and that was how her doctors wanted it. Cardiology Dr. Villasenor is following. (3) Acute kidney injury Is this a current diagnosis for this admission?: Yes Plan: This was thought likely secondary to overdiuresis and Lasix was held. Improved today. Continue to follow Chem-7. (4) Nephrotic range proteinuria Is this a current diagnosis for this admission?: Yes Plan: Patient is records section supervisor as outpatient. No records section supervisor butadiene converter operator at this facility and no urgent need for transfer at this time. (5) Hypertensive urgency Is this a current diagnosis for this admission?: Yes Plan: Improved. At this point she is on 5 different blood pressure medications. Renal ultrasound and renal Dopplers were normal. (6) Diabetes mellitus Is this a current diagnosis for this admission?: Yes Plan: Stable (7) Valvular heart disease Is this a current diagnosis for this admission?: Yes Plan: Likely a big factor in her heart failure exacerbation. She will need to be followed closely by cardiology as an outpatient (8) Anemia Is this a current diagnosis for this admission?: Yes Plan: She has a normocytic anemia consistent with chronic disease (9) Full code status Is this a current diagnosis for this admission?: Yes
[2018-05-17 14:28] LABS: ANION GAP 8 (5-19); BLOOD UREA NITROGEN 30 mg/dL (7-20); CALCIUM 8.9 mg/dL (8.4-10.2); CARBON DIOXIDE 31 mmol/L (22-30); CHLORIDE 96 mmol/L (98-107); GLUCOSE 73 mg/dL (75-110); POTASSIUM 4.7 mmol/L (3.6-5.0)
[2018-05-17 14:44] LABS: FREE T3 3.77 pg/mL (2.77-5.27)
[2018-05-17 14:58] LABS: THYROID STIMULATING HORMONE 1.95 uIU/mL (0.47-4.68)
[2018-05-17] MEDS: FUROSEMIDE 40 MG TABLET PO SCH (21:04)
[2018-05-17] MEDS: ATORVASTATIN CALCIUM 40 MG TABLET PO SCH (21:05)
[2018-05-17] MEDS ORDERED: HYDROCODONE/ACETAMINOPHEN 10-325 MG TABLET PO ONE (23:45)
[2018-05-18] MEDS: MAG HYDROX/AL HYDROX/SIMETH SUSP 30 ML UDCUP PO PRN (00:06)
[2018-05-18] MEDS: MORPHINE SULFATE 10 MG/ML INJ IV PRN ×3 (01:34→16:12)
[2018-05-18] MEDS: HEPARIN SOD (PORCINE) 5,000 UNIT/ML 1 ML SYRINGE SUBCUT SCH ×3 (05:08→22:51)
[2018-05-18] MEDS: AMLODIPINE BESYLATE 5 MG TABLET PO SCH ×2 (05:10→17:14)
[2018-05-18] MEDS: GABAPENTIN 300 MG CAPSULE PO SCH ×3 (05:11→22:48)
[2018-05-18] MEDS: HYDRALAZINE HCL 50 MG TABLET PO SCH ×3 (05:11→22:47)
--- NOTE | 2018-05-18 07:21 | PROGRESS NOTE E ---
Progress Note NAME: JASMIN MURDOCK : 1960 AGE: 58Y DATE: 05/17/2018 ROOM: 428 SUBJECTIVE: The patient has no chest pain or discomfort. She was slightly upset that she could not get a nephrology consult. Also, she is also not very happy that her Lasix has not been restarted. We explained to her the reason why the Lasix has been held in view of the patient's renal function having deteriorated. There is no shortness of breath at rest. There is no PND, orthopnea. There are no arrhythmias. There are no palpitations. There is no TIA or CVA symptoms. There is no near syncope or syncope. OBJECTIVE: GENERAL: On examination, the patient is well built and well nourished, at present in no acute distress. VITAL SIGNS: She is afebrile with a temperature of 98.6 degrees Fahrenheit, her pulse is 69 beats per minute, blood pressure is 150/60, respirations are 16 per minute, O2 saturations are 92% on room air. HEAD: Atraumatic, normocephalic. EYES: Pupils are equal, round, regular, reactive to light and accommodation. Extraocular movements are normal. There is no conjunctival pallor. There is no scleral icterus. ENT: Negative. NECK: Supple. There is no JVD. There is no lymphadenopathy. There is no goiter. Carotids are equal. There is no bruit. Trachea is central. LUNGS: A few rales at the bases. There is no chest wall tenderness. There is no rhonchi or wheezing. CARDIOVASCULAR: S1 and S2 are heard. There is murmur of aortic regurgitation and mitral regurgitation present. There is no S3 gallop. There is no S4 gallop. There is no rub. S1 is of normal intensity. ABDOMEN: Soft, nontender. There is no hepatosplenomegaly. Bowel sounds are well heard. EXTREMITIES: Femorals are diminished. There are no femoral bruits. Leg pulses are diminished. There is trace pedal edema bilaterally. There is no cyanosis or clubbing. There is no DVT or cellulitis. There is no calf tenderness. CENTRAL NERVOUS SYSTEM: The patient is conscious, awake, alert, oriented x3 with no focal deficit. PSYCHIATRIC: The patient's judgment and insight are intact and affect is normal. DIAGNOSTIC STUDIES: The patient's chest x-ray is reported as small bilateral pleural effusions, mild *------* prominence has increased since the prior study, no consolidation. I discussed the patient's CT scan. Since November of 2017, she has been having some chronic changes in the lungs. I discussed with the patient that she needs to discuss with the recruitment coordinator and also have a lung specialist see her since this may not be heart failure and may be a lung disease, such as early interstitial fibrosis. The patient's sodium is 135.0, potassium 4.7, chloride is 96, CO2 is 31. The patient's BUN is 30, creatinine is 1.06. GFR is 54 mL and glucose is 73. The calcium is 8.9. Her thyroid function test shows a TSH of 1.95, free T3 is 3.77. IMPRESSION: 1. SHORTNESS SECONDARY TO VALVULAR DISEASE AND ALSO PROBABLY DIASTOLIC HEART FAILURE AND ALSO PROBABLY INTRINSIC LUNG PROBLEM. 2. ACUTE ON CHRONIC DIASTOLIC HEART FAILURE, AT PRESENT COMPENSATED. 3. STATUS POST RESPIRATORY FAILURE, AT PRESENT RESOLVED. 4. HYPERTENSIVE URGENCY. BLOOD PRESSURE MUCH IMPROVED, BUT STILL NOT OPTIMALLY CONTROLLED. 5. DIABETES MELLITUS. 6. MITRAL REGURGITATION. 7. AORTIC REGURGITATION. 8. NEPHROTIC RANGE PROTEINURIA. 9. DYSLIPIDEMIA. 10. ACUTE RENAL FAILURE. GFR HAS IMPROVED. RECOMMENDATION: Would slowly restart the patient's Lasix at a smaller dose. As mentioned earlier, will discuss with the recruitment coordinator who comes to the laborer airport maintenance here once every week and also see if she can get a pulmonology consult in [place] where the patient wants to have the consult to see if the patient does have any lung problems complicating the issues. NOTE: Forty minutes spent on the patient with more than 50% of the time spent in direct patient care. Medical decision making is of high complexity at present. Medications have been reviewed. Discussed with the hospitalist taking care of the patient. DICTATING PHYSICIAN: CHARLENE PACKER M.D. [id number] PHY#: [id number] ID: [id number] JOB#: [id number] ACCT: [id number] cc: >
[2018-05-18] MEDS: ASPIRIN 81 MG TABLET, ENT COATED PO SCH (11:46)
[2018-05-18] MEDS: HYDROCHLOROTHIAZIDE 25 MG TABLET PO SCH (11:46)
[2018-05-18] MEDS: FUROSEMIDE 40 MG TABLET PO SCH ×2 (11:47→17:14)
[2018-05-18] MEDS: LISINOPRIL 10 MG TABLET PO SCH ×2 (11:47→22:49)
[2018-05-18] MEDS: NEBIVOLOL HCL 10 MG TABLET PO SCH (11:48)
[2018-05-18] MEDS: INSULIN GLARGINE,HUM.REC.ANLOG 1,000 UNIT/10 ML UNIT SUBCUT SCH ×2 (11:49→22:52)
[2018-05-18] MEDS: HYDROCODONE/ACETAMINOPHEN 10-325 MG TABLET PO SCH ×2 (17:15→23:12)
[2018-05-18] MEDS: INSULIN LISPRO 100 UNIT/ML 3 ML VIAL SUBCUT PRN (18:59)
--- NOTE | 2018-05-18 19:03 | PDOC PROGRESS REPORT ---
Subjective Progress Note for:: 05/18/18 Subjective:: The patient is an unfortunate 58-year-old female who was admitted to the hospital with a congestive heart failure exacerbation. She has a history of proteinuria that is approaching nephrotic range. She follows with cardiology in [place] and recently established with a operator/assistant foreman as an outpatient. Her 2D echocardiogram revealed normal LV function. She was found to have significant valvular disease. She has been followed closely by cardiology. Patient states she has a significant swelling as outpatient, on Lasix 80 mg twice daily. She was treated with IV Lasix, but the patient's kidney function worsened. Lasix was held, renal function has normalized again. Patient says she is feeling better today Reason For Visit: HEART FAILURE Physical Exam Vital Signs: Temp Pulse Resp BP Pulse Ox 97.9 F 71 18 126/41 H 96 05/18/18 16:09 05/18/18 16:09 05/18/18 16:09 05/18/18 16:09 05/18/18 16:09 Intake & Output 05/17/18 05/18/18 05/19/18 06:59 06:59 06:59 Intake Total 1865 2204 1317 Output Total 2300 3500 2000 Balance -435 -1296 -683 Weight 68.3 kg 69.7 kg General appearance: PRESENT: no acute distress, well-developed, well-nourished Head exam: PRESENT: atraumatic, normocephalic Eye exam: PRESENT: conjunctiva pink, EOMI, PERRLA. ABSENT: scleral icterus Ear exam: PRESENT: normal external ear exam Mouth exam: PRESENT: moist, tongue midline Neck exam: ABSENT: carotid bruit, JVD, lymphadenopathy, thyromegaly Respiratory exam: PRESENT: decreased breath sounds. ABSENT: rales, rhonchi, wheezes Cardiovascular exam: PRESENT: RRR, +S1, +S2, systolic murmur. ABSENT: diastolic murmur, rubs Pulses: PRESENT: normal dorsalis pedis pul Vascular exam: PRESENT: normal capillary refill GI/Abdominal exam: PRESENT: normal bowel sounds, soft. ABSENT: distended, guarding, mass, organolmegaly, rebound, tenderness Rectal exam: PRESENT: deferred Extremities exam: PRESENT: full ROM, pedal edema, +2 edema. ABSENT: calf tenderness, clubbing Neurological exam: PRESENT: alert, awake, oriented to person, oriented to place , oriented to time, oriented to situation, CN II-XII grossly intact. ABSENT: motor sensory deficit Psychiatric exam: PRESENT: appropriate affect, normal mood. ABSENT: homicidal ideation, suicidal ideation Skin exam: PRESENT: dry, intact, warm. ABSENT: cyanosis, rash Results Laboratory Results: 05/15/18 04:10 05/17/18 13:50 05/10/18 05/10/18 05/10/18 09:38 15:25 21:30 Troponin I < 0.012 < 0.012 < 0.012 NT-Pro-B Natriuret Pep 05/12/18 05/13/18 12:53 15:55 Troponin I NT-Pro-B Natriuret Pep 3300 H 3280 H Impressions: Renal Ultrasound 05/12/18 00:00 IMPRESSION: NORMAL RENAL AND BLADDER ULTRASOUND. Venous Doppler Study 05/13/18 00:00 IMPRESSION: NO EVIDENCE DVT OR SVT IN EITHER LEG. Renal Artery Duplex 05/13/18 10:20 IMPRESSION: NO DOPPLER EVIDENCE OF HEMODYNAMICALLY SIGNIFICANT RENAL ARTERY STENOSIS. Chest CT 05/15/18 00:00 IMPRESSION: Findings most likely related to vascular congestion and interstitial pulmonary edema. Bilateral pleural effusions. Likely pneumonia at the left base. No findings to support pulmonary fibrosis. Chest X-Ray 05/17/18 00:00 IMPRESSION: Similar small bilateral pleural effusions. Mild interstitial - reticulonodular prominence has increased since the prior study. No consolidation. Assessment & Plan - Time Time Spent with patient: 15-24 minutes Medications reviewed and adjusted accordingly: Yes Anticipated discharge: Home Within: within 72 hours - Inpatient Certification Based on my medical assessment, after consideration of the patient's comorbidities, presenting symptoms, or acuity I expect that the services needed warrant INPATIENT care.: Yes Medical Necessity: Need For Continuous Telemetry Monitoring, Risk of Complication if Not Cared For in Hospital
[2018-05-18] MEDS: ATORVASTATIN CALCIUM 40 MG TABLET PO SCH (22:48)
[2018-05-19] MEDS: MORPHINE SULFATE 10 MG/ML INJ IV PRN (02:30)
[2018-05-19 05:54] LABS: ABSOLUTE EOSINOPHILS # (AUTO) 0.1 10^3/uL (0.0-0.6); ABSOLUTE LYMPHOCYTES (AUTO) 1.3 10^3/uL (0.5-4.7); ABSOLUTE MONOCYTES (AUTO) 0.6 10^3/uL (0.1-1.4); ABSOLUTE NEUT (AUTO) 2.9 10^3/uL (1.7-8.2); BASOPHILS % (AUTO) 0.6 % (0-2); EOSINOPHILS % (AUTO) 2.9 % (0-6); HEMATOCRIT 26.1 % (36.0-47.0); LYMPHOCYTES % (AUTO) 26.5 % (13-45); MEAN CORPUSCULAR HEMOGLOBIN 27.7 pg (27.0-33.4); MEAN CORPUSCULAR HGB CONC 34.3 g/dL (32.0-36.0); MEAN CORPUSCULAR VOLUME 81 fl (80-97); MONOCYTES % (AUTO) 11.7 % (3-13); PLATELET COUNT 184 10^3/uL (150-450); RED BLOOD COUNT 3.23 10^6/uL (3.72-5.28); RED CELL DISTRIBUTION WIDTH 13.8 % (11.5-14.0); SEGMENTED NEUTROPHILS % (AUTO) 58.3 % (42-78); TOTAL CELLS COUNTED % (AUTO) 100 %; WHITE BLOOD COUNT 5.1 10^3/uL (4.0-10.5)
[2018-05-19] MEDS: GABAPENTIN 300 MG CAPSULE PO SCH ×3 (06:28→23:05)
[2018-05-19] MEDS: HYDRALAZINE HCL 50 MG TABLET PO SCH (06:28)
[2018-05-19] MEDS: HEPARIN SOD (PORCINE) 5,000 UNIT/ML 1 ML SYRINGE SUBCUT SCH ×3 (06:29→22:59)
[2018-05-19 06:30] LABS: ANION GAP 9 (5-19); BLOOD UREA NITROGEN 30 mg/dL (7-20); CALCIUM 8.4 mg/dL (8.4-10.2); CARBON DIOXIDE 27 mmol/L (22-30); CHLORIDE 98 mmol/L (98-107); GLUCOSE 72 mg/dL (75-110); POTASSIUM 4.2 mmol/L (3.6-5.0); SODIUM 134.2 mmol/L (137-145)
[2018-05-19] MEDS: AMLODIPINE BESYLATE 5 MG TABLET PO SCH ×2 (06:30→18:30)
[2018-05-19] MEDS: HYDROCODONE/ACETAMINOPHEN 10-325 MG TABLET PO SCH ×4 (06:30→23:04)
[2018-05-19] MEDS: ASPIRIN 81 MG TABLET, ENT COATED PO SCH (10:39)
[2018-05-19] MEDS: LISINOPRIL 10 MG TABLET PO SCH ×2 (10:39→23:00)
[2018-05-19] MEDS: NEBIVOLOL HCL 10 MG TABLET PO SCH (10:40)
[2018-05-19] MEDS: HYDROCHLOROTHIAZIDE 25 MG TABLET PO SCH (10:40)
[2018-05-19] MEDS: FUROSEMIDE 40 MG TABLET PO SCH (10:41)
[2018-05-19] MEDS: INSULIN GLARGINE,HUM.REC.ANLOG 1,000 UNIT/10 ML UNIT SUBCUT SCH ×2 (11:01→22:58)
--- NOTE | 2018-05-19 13:35 | PDOC PROGRESS REPORT ---
Subjective Progress Note for:: 05/19/18 Subjective:: The patient is an unfortunate 58-year-old female who was admitted to the hospital with a congestive heart failure exacerbation. She has a history of proteinuria that is approaching nephrotic range. She follows with cardiology in [place] and recently established with a sales management intern as an outpatient. Her 2D echocardiogram revealed normal LV function. She was found to have significant valvular disease. She has been followed closely by cardiology. Patient states she has a significant swelling as outpatient, on Lasix 80 mg twice daily. She was treated with IV Lasix, but the patient's kidney function worsened. Lasix was held, renal function has normalized again. Patient says she is feeling better today. Her blood sugars have been noted to be low She also says she has not received CHF education Reason For Visit: HEART FAILURE Physical Exam Vital Signs: Temp Pulse Resp BP Pulse Ox 97.9 F 67 18 144/54 H 97 05/19/18 08:00 05/19/18 08:00 05/19/18 08:00 05/19/18 08:00 05/19/18 08:38 Intake & Output 05/18/18 05/19/18 05/20/18 06:59 06:59 06:59 Intake Total 2204 1938 Output Total 3500 3400 Balance -1296 -1462 Weight 69.7 kg 66.5 kg General appearance: PRESENT: no acute distress, well-developed, well-nourished Head exam: PRESENT: atraumatic, normocephalic Eye exam: PRESENT: conjunctiva pink, EOMI, PERRLA. ABSENT: scleral icterus Ear exam: PRESENT: normal external ear exam Mouth exam: PRESENT: moist, tongue midline Neck exam: ABSENT: carotid bruit, JVD, lymphadenopathy, thyromegaly Respiratory exam: PRESENT: decreased breath sounds. ABSENT: rales, rhonchi, wheezes Cardiovascular exam: PRESENT: RRR, +S1, +S2, systolic murmur - 3/6. ABSENT: diastolic murmur, rubs Pulses: PRESENT: normal dorsalis pedis pul Vascular exam: PRESENT: normal capillary refill GI/Abdominal exam: PRESENT: normal bowel sounds, soft. ABSENT: distended, guarding, mass, organolmegaly, rebound, tenderness Rectal exam: PRESENT: deferred Extremities exam: PRESENT: full ROM, pedal edema, +2 edema. ABSENT: calf tenderness, clubbing Neurological exam: PRESENT: alert, awake, oriented to person, oriented to place , oriented to time, oriented to situation, CN II-XII grossly intact. ABSENT: motor sensory deficit Psychiatric exam: PRESENT: appropriate affect, normal mood. ABSENT: homicidal ideation, suicidal ideation Skin exam: PRESENT: dry, intact, warm. ABSENT: cyanosis, rash Results Laboratory Results: 05/19/18 05:22 05/19/18 05:22 05/19/18 05/19/18 05:22 05:22 WBC 5.1 RBC 3.23 L Hgb 9.0 L Hct 26.1 L MCV 81 MCH 27.7 MCHC 34.3 RDW 13.8 Plt Count 184 Seg Neutrophils % 58.3 Lymphocytes % 26.5 Monocytes % 11.7 Eosinophils % 2.9 Basophils % 0.6 Absolute Neutrophils 2.9 Absolute Lymphocytes 1.3 Absolute Monocytes 0.6 Absolute Eosinophils 0.1 Absolute Basophils 0.0 Sodium 134.2 L Potassium 4.2 Chloride 98 Carbon Dioxide 27 Anion Gap 9 BUN 30 H Creatinine 1.10 Est GFR ( Amer) > 60 Est GFR (Non-Af Amer) 51 L Glucose 72 L Calcium 8.4 05/10/18 05/10/18 05/10/18 09:38 15:25 21:30 Troponin I < 0.012 < 0.012 < 0.012 NT-Pro-B Natriuret Pep 05/12/18 05/13/18 05/19/18 12:53 15:55 05:22 Troponin I NT-Pro-B Natriuret Pep 3300 H 3280 H 1780 H Impressions: Renal Ultrasound 05/12/18 00:00 IMPRESSION: NORMAL RENAL AND BLADDER ULTRASOUND. Venous Doppler Study 05/13/18 00:00 IMPRESSION: NO EVIDENCE DVT OR SVT IN EITHER LEG. Renal Artery Duplex 05/13/18 10:20 IMPRESSION: NO DOPPLER EVIDENCE OF HEMODYNAMICALLY SIGNIFICANT RENAL ARTERY STENOSIS. Chest CT 05/15/18 00:00 IMPRESSION: Findings most likely related to vascular congestion and interstitial pulmonary edema. Bilateral pleural effusions. Likely pneumonia at the left base. No findings to support pulmonary fibrosis. Chest X-Ray 05/17/18 00:00 IMPRESSION: Similar small bilateral pleural effusions. Mild interstitial - reticulonodular prominence has increased since the prior study. No consolidation. Assessment & Plan - Diagnosis (1) Acute kidney injury Is this a current diagnosis for this admission?: Yes Plan: Resolved (2) Acute on chronic diastolic (congestive) heart failure Is this a current diagnosis for this admission?: Yes Plan: Switch to IV Lasix, monitor labs (3) Acute renal failure Qualifiers: Acute renal failure type: unspecified Qualified Code(s): N17.9 - Acute kidney failure, unspecified Is this a current diagnosis for this admission?: Yes (4) Acute respiratory failure Qualifiers: Respiratory failure complication: hypoxia Qualified Code(s): J96.01 - Acute respiratory failure with hypoxia Is this a current diagnosis for this admission?: Yes (5) Anemia Qualifiers: Anemia type: unspecified type Qualified Code(s): D64.9 - Anemia, unspecified Is this a current diagnosis for this admission?: Yes (6) Aortic incompetence Qualifiers: Cardiac valve disease etiology: etiology unspecified Qualified Code(s): I35.1 - Nonrheumatic aortic (valve) insufficiency Is this a current diagnosis for this admission?: Yes (7) Hypertensive urgency Is this a current diagnosis for this admission?: Yes (8) Mitral regurgitation Qualifiers: Cardiac valve disease etiology: nonrheumatic Qualified Code(s): I34.0 - Nonrheumatic mitral (valve) insufficiency Is this a current diagnosis for this admission?: Yes Plan: Judicious diuresis, follow up with Operations Research Engineer (9) Diabetes mellitus Qualifiers: Diabetes mellitus type: type 2 Diabetes mellitus complication status: with hypoglycemia Is this a current diagnosis for this admission?: Yes Plan: Adjust Lantus, cont SSI - Time Time Spent with patient: 15-24 minutes Medications reviewed and adjusted accordingly: Yes Anticipated discharge: Home Within: within 48 hours - Inpatient Certification Based on my medical assessment, after consideration of the patient's comorbidities, presenting symptoms, or acuity I expect that the services needed warrant INPATIENT care.: Yes Medical Necessity: Need For Continuous Telemetry Monitoring, Risk of Complication if Not Cared For in Hospital
[2018-05-19] MEDS: FUROSEMIDE INJ/PF 40 MG/4 ML SDV IV SCH (22:58)
[2018-05-19] MEDS: ATORVASTATIN CALCIUM 40 MG TABLET PO SCH (23:00)
[2018-05-19] MEDS: KETOROLAC TROMETHAMINE INJ/PF 30 MG/1 ML SDV IV PRN (23:04)
[2018-05-20] MEDS: GABAPENTIN 300 MG CAPSULE PO SCH ×3 (05:30→21:49)
[2018-05-20] MEDS: AMLODIPINE BESYLATE 5 MG TABLET PO SCH ×2 (05:30→17:46)
[2018-05-20] MEDS: HYDROCODONE/ACETAMINOPHEN 10-325 MG TABLET PO SCH ×3 (05:31→17:45)
[2018-05-20] MEDS: HEPARIN SOD (PORCINE) 5,000 UNIT/ML 1 ML SYRINGE SUBCUT SCH ×3 (05:32→21:48)
[2018-05-20 06:05] LABS: ANION GAP 9 (5-19); BLOOD UREA NITROGEN 30 mg/dL (7-20); CALCIUM 8.5 mg/dL (8.4-10.2); CARBON DIOXIDE 28 mmol/L (22-30); CHLORIDE 95 mmol/L (98-107); GLUCOSE 111 mg/dL (75-110); POTASSIUM 4.4 mmol/L (3.6-5.0)
[2018-05-20] MEDS: KETOROLAC TROMETHAMINE INJ/PF 30 MG/1 ML SDV IV PRN (08:22)
[2018-05-20] MEDS: INSULIN GLARGINE,HUM.REC.ANLOG 1,000 UNIT/10 ML UNIT SUBCUT SCH (10:19)
[2018-05-20] MEDS: ONDANSETRON 4 MG TAB.RAPDIS PO PRN ×2 (10:21→17:45)
[2018-05-20] MEDS: HYDROCHLOROTHIAZIDE 25 MG TABLET PO SCH (10:21)
[2018-05-20] MEDS: LISINOPRIL 10 MG TABLET PO SCH ×2 (10:21→21:49)
[2018-05-20] MEDS: ASPIRIN 81 MG TABLET, ENT COATED PO SCH (10:21)
[2018-05-20] MEDS: NEBIVOLOL HCL 10 MG TABLET PO SCH (10:21)
[2018-05-20] MEDS: FUROSEMIDE INJ/PF 40 MG/4 ML SDV IV SCH ×3 (10:22→21:51)
--- NOTE | 2018-05-20 10:35 | PDOC PROGRESS REPORT ---
Subjective Progress Note for:: 05/20/18 Subjective:: The patient is an unfortunate 58-year-old female who was admitted to the hospital with a congestive heart failure exacerbation. She has a history of proteinuria that is approaching nephrotic range. She follows with cardiology in [place] and recently established with a founder and chief executive officer as an outpatient. Her 2D echocardiogram revealed normal LV function. She was found to have significant valvular disease. She has been followed closely by cardiology. Patient states she has a significant swelling as outpatient, on Lasix 80 mg twice daily. She was treated with IV Lasix, but the patient's kidney function worsened. Lasix was held, renal function has normalized again. She received CHF education but still unclear about her diet/. Will consult Dietitian Reason For Visit: HEART FAILURE Physical Exam Vital Signs: Temp Pulse Resp BP Pulse Ox 98.0 F 71 12 146/56 H 98 05/20/18 07:24 05/20/18 07:24 05/20/18 07:24 05/20/18 07:24 05/20/18 07:24 Intake & Output 05/19/18 05/20/18 05/21/18 06:59 06:59 06:59 Intake Total 1938 1658 Output Total 3400 3300 Balance -1462 -1642 Weight 66.5 kg 66.9 kg General appearance: PRESENT: no acute distress, well-developed, well-nourished Head exam: PRESENT: atraumatic, normocephalic Eye exam: PRESENT: conjunctiva pink, EOMI, PERRLA. ABSENT: scleral icterus Ear exam: PRESENT: normal external ear exam Mouth exam: PRESENT: moist, tongue midline Neck exam: ABSENT: carotid bruit, JVD, lymphadenopathy, thyromegaly Respiratory exam: PRESENT: crackles - basal. ABSENT: rales, rhonchi, wheezes Cardiovascular exam: PRESENT: RRR, +S1, +S2, systolic murmur - 3/6. ABSENT: diastolic murmur, rubs Pulses: PRESENT: normal dorsalis pedis pul Vascular exam: PRESENT: normal capillary refill GI/Abdominal exam: PRESENT: normal bowel sounds, soft. ABSENT: distended, guarding, mass, organolmegaly, rebound, tenderness Rectal exam: PRESENT: deferred Extremities exam: PRESENT: full ROM, pedal edema, +2 edema. ABSENT: calf tenderness, clubbing Neurological exam: PRESENT: alert, awake, oriented to person, oriented to place , oriented to time, oriented to situation, CN II-XII grossly intact. ABSENT: motor sensory deficit Psychiatric exam: PRESENT: appropriate affect, normal mood. ABSENT: homicidal ideation, suicidal ideation Skin exam: PRESENT: dry, intact, warm. ABSENT: cyanosis, rash Results Laboratory Results: 05/19/18 05:22 05/20/18 04:34 05/20/18 04:34 Sodium 132.0 L Potassium 4.4 Chloride 95 L Carbon Dioxide 28 Anion Gap 9 BUN 30 H Creatinine 1.11 Est GFR ( Amer) > 60 Est GFR (Non-Af Amer) 51 L Glucose 111 H Calcium 8.5 05/10/18 05/10/18 05/10/18 09:38 15:25 21:30 Troponin I < 0.012 < 0.012 < 0.012 NT-Pro-B Natriuret Pep 05/12/18 05/13/18 05/19/18 12:53 15:55 05:22 Troponin I NT-Pro-B Natriuret Pep 3300 H 3280 H 1780 H Impressions: Renal Ultrasound 05/12/18 00:00 IMPRESSION: NORMAL RENAL AND BLADDER ULTRASOUND. Venous Doppler Study 05/13/18 00:00 IMPRESSION: NO EVIDENCE DVT OR SVT IN EITHER LEG. Renal Artery Duplex 05/13/18 10:20 IMPRESSION: NO DOPPLER EVIDENCE OF HEMODYNAMICALLY SIGNIFICANT RENAL ARTERY STENOSIS. Chest CT 05/15/18 00:00 IMPRESSION: Findings most likely related to vascular congestion and interstitial pulmonary edema. Bilateral pleural effusions. Likely pneumonia at the left base. No findings to support pulmonary fibrosis. Chest X-Ray 05/17/18 00:00 IMPRESSION: Similar small bilateral pleural effusions. Mild interstitial - reticulonodular prominence has increased since the prior study. No consolidation. Assessment & Plan - Diagnosis (1) Acute kidney injury Is this a current diagnosis for this admission?: Yes Plan: Kidney function close to baseline. Will expect to see some worsening of her BUN especially with diuresis. Will keep a close eye (2) Acute on chronic diastolic (congestive) heart failure Is this a current diagnosis for this admission?: Yes Plan: Increase IV Lasix, monitor labs (3) Acute renal failure Qualifiers: Acute renal failure type: unspecified Qualified Code(s): N17.9 - Acute kidney failure, unspecified Is this a current diagnosis for this admission?: Yes (4) Acute respiratory failure Qualifiers: Respiratory failure complication: hypoxia Qualified Code(s): J96.01 - Acute respiratory failure with hypoxia Is this a current diagnosis for this admission?: Yes Plan: Wean off Oxygen as tolerated (5) Anemia Qualifiers: Anemia type: unspecified type Qualified Code(s): D64.9 - Anemia, unspecified Is this a current diagnosis for this admission?: Yes Plan: Will check iron stores (6) Aortic incompetence Qualifiers: Cardiac valve disease etiology: etiology unspecified Qualified Code(s): I35.1 - Nonrheumatic aortic (valve) insufficiency Is this a current diagnosis for this admission?: Yes Plan: F/u with manager special events as outpatient (7) Hypertensive urgency Is this a current diagnosis for this admission?: Yes (8) Mitral regurgitation Qualifiers: Cardiac valve disease etiology: nonrheumatic Qualified Code(s): I34.0 - Nonrheumatic mitral (valve) insufficiency Is this a current diagnosis for this admission?: Yes Plan: Judicious diuresis, follow up with Automotive Service Manager (9) Diabetes mellitus Qualifiers: Diabetes mellitus type: type 2 Diabetes mellitus complication status: with hypoglycemia Is this a current diagnosis for this admission?: Yes Plan: Continue to adjust insulin as needed - Time Time Spent with patient: 15-24 minutes Medications reviewed and adjusted accordingly: Yes Anticipated discharge: Home Within: within 48 hours - Inpatient Certification Based on my medical assessment, after consideration of the patient's comorbidities, presenting symptoms, or acuity I expect that the services needed warrant INPATIENT care.: Yes Medical Necessity: Need For Continuous Telemetry Monitoring, Risk of Complication if Not Cared For in Hospital
--- NOTE | 2018-05-20 12:49 | PROGRESS NOTE E ---
Progress Note NAME: JASMIN MURDOCK : 1960 AGE: 58Y DATE: 05/18/2018 ROOM: 428 SUBJECTIVE: The patient denies any chest pain or discomfort. She is not upset anymore. She denies any shortness of breath at rest. There is no PND or orthopnea. Her leg edema is only trace. There is no palpitations and no arrhythmia seen on the monitor. Note, her Lasix has been restarted at a small dose. PHYSICAL EXAMINATION: GENERAL: The patient is well built and well nourished, in no acute distress. VITAL SIGNS: She is afebrile with a temperature of 98 degrees Fahrenheit. Pulse is 68 beats per minute. Blood pressure is 126/49. Respirations are 16 per minute. O2 sats are 95% on 1.5 L nasal cannula. HEENT: Head is atraumatic and normocephalic. Eyes - Pupils are equal, round, regular, reactive to light and accommodation. Extraocular movements are normal. There is no conjunctival pallor. There is no scleral icterus. ENT is negative. NECK: Supple. There is no JVD. Carotids are equal. There is no bruit. There is no lymphadenopathy. There is no goiter. Trachea is central. LUNGS: Show a few leathery dry rales at the bases, not suggestive of heart failure. There is no chest wall tenderness. There is no rhonchi or wheezing. Otherwise, breath sounds are well heard bilaterally. There is no chest wall tenderness. HEART: S1, S2 is heard. There is a murmur of aortic regurgitation and mitral regurgitation present. There is no S3 gallop. There is no S4 gallop. There is no rub. S1 is of normal intensity. ABDOMEN: Soft, nontender. There is no hepatosplenomegaly. Bowel sounds are well heard. EXTREMITIES: Femorals are diminished. There are no femoral bruits. Leg pulses are diminished. There is trace pedal edema bilaterally. There is no cyanosis or clubbing. There is no DVT or cellulitis. There is no calf tenderness. CENTRAL NERVOUS SYSTEM: The patient is conscious, awake, alert, and oriented x3 with no focal deficits. PSYCHIATRIC: The patient's judgement and insight are intact. Her affect is normal. DIAGNOSTICS: The patient's blood sugar is 128. No other labs available today. The patient's 24-hour intake is 2204 mL and output is 3500 mL. IMPRESSION: 1. SHORTNESS OF BREATH SECONDARY TO VALVULAR HEART DISEASE AND ALSO PROBABLY DIASTOLIC HEART FAILURE, ALSO PROBABLY INTERSTITIAL LUNG PROBLEM. 2. ACUTE ON CHRONIC DIASTOLIC HEART FAILURE, AT PRESENT COMPENSATED. 3. STATUS POST RESPIRATORY FAILURE, AT PRESENT RESOLVED BUT STILL PATIENT REQUIRES OXYGEN VIA NASAL CANNULA AT 1.5 L BUT WITH A STABLE O2 SATURATION. 4. HYPERTENSIVE URGENCY. AT PRESENT BLOOD PRESSURE IS WELL CONTROLLED. 5. DIABETES MELLITUS. 6. MITRAL REGURGITATION. 7. AORTIC REGURGITATION. 8. NEPHROTIC SYNDROME, NEPHROTIC-RANGE PROTEINURIA. 9. DYSLIPIDEMIA. 10. ACUTE RENAL FAILURE. GFR IS IMPROVED. RECOMMENDATIONS: Discussed with the hospitalist taking care of the patient. DICTATING PHYSICIAN: CHARLENE PACKER M.D. [id number] LAUREN#: [id number] 2020 ID: [id number] JOB#: [id number] ACCT: [id number] cc: >
[2018-05-20] MEDS: FAMOTIDINE 20 MG TABLET PO SCH ×2 (17:46→21:43)
[2018-05-20] MEDS: ACETAMINOPHEN 325 MG TABLET PO PRN (17:46)
[2018-05-20] MEDS: ATORVASTATIN CALCIUM 40 MG TABLET PO SCH (21:50)
[2018-05-20] MEDS ORDERED: INSULIN GLARGINE,HUM.REC.ANLOG 1,000 UNIT/10 ML UNIT SUBCUT SCH (22:00)
[2018-05-21] MEDS: KETOROLAC TROMETHAMINE INJ/PF 30 MG/1 ML SDV IV PRN ×2 (00:18→16:31)
[2018-05-21] MEDS: HYDROCODONE/ACETAMINOPHEN 10-325 MG TABLET PO SCH ×4 (00:30→18:28)
[2018-05-21] MEDS: AMLODIPINE BESYLATE 5 MG TABLET PO SCH ×2 (06:20→18:25)
[2018-05-21] MEDS: HEPARIN SOD (PORCINE) 5,000 UNIT/ML 1 ML SYRINGE SUBCUT SCH ×3 (06:22→22:18)
[2018-05-21] MEDS: GABAPENTIN 300 MG CAPSULE PO SCH ×3 (06:22→22:14)
[2018-05-21] MEDS: FUROSEMIDE INJ/PF 40 MG/4 ML SDV IV SCH ×3 (06:23→22:13)
[2018-05-21 07:15] LABS: RETICULOCYTE COUNT (AUTO) 4.27 % (0.66-2.85)
[2018-05-21 07:22] LABS: IRON(TIBC) 78.1 ug/dL (37-170)
[2018-05-21] MEDS: ONDANSETRON 4 MG TAB.RAPDIS PO PRN (10:46)
[2018-05-21] MEDS: FAMOTIDINE 20 MG TABLET PO SCH ×2 (10:48→22:14)
[2018-05-21] MEDS: LISINOPRIL 10 MG TABLET PO SCH ×2 (12:18→22:18)
[2018-05-21] MEDS: HYDROCHLOROTHIAZIDE 25 MG TABLET PO SCH (12:18)
[2018-05-21] MEDS: ASPIRIN 81 MG TABLET, ENT COATED PO SCH (12:18)
[2018-05-21] MEDS: NEBIVOLOL HCL 10 MG TABLET PO SCH (12:19)
[2018-05-21] MEDS: METOCLOPRAMIDE HCL INJ/PF 10 MG/2 ML SDV IV SCH ×2 (13:30→18:26)
[2018-05-21] MEDS: ACETAMINOPHEN 325 MG TABLET PO PRN (15:55)
[2018-05-21] MEDS: INSULIN LISPRO 100 UNIT/ML 3 ML VIAL SUBCUT PRN (16:50)
--- NOTE | 2018-05-21 17:36 | PDOC PROGRESS REPORT ---
Subjective Progress Note for:: 05/21/18 Subjective:: The patient is an unfortunate 58-year-old female who was admitted to the hospital with a congestive heart failure exacerbation. She has a history of proteinuria that is approaching nephrotic range. She follows with cardiology in [place] and recently established with a balcony worker as an outpatient. Her 2D echocardiogram revealed normal LV function. She was found to have significant valvular disease. She has been followed closely by cardiology. Patient states she has a significant swelling as outpatient, on Lasix 80 mg twice daily. She was treated with IV Lasix, but the patient's kidney function worsened. Lasix was held, renal function has normalized again. She received CHF education as well as dietary education. She says she really does not feel well today and complained of nausea. She is able to ambulate with minimal issues Reason For Visit: HEART FAILURE Physical Exam Vital Signs: Temp Pulse Resp BP Pulse Ox 98.1 F 74 18 157/57 H 97 05/21/18 12:00 05/21/18 12:00 05/21/18 12:00 05/21/18 08:00 05/21/18 12:00 Intake & Output 05/20/18 05/21/18 05/22/18 06:59 06:59 06:59 Intake Total 1658 522 Output Total 3300 3150 Balance -1642 -2628 Weight 66.9 kg 66.4 kg General appearance: PRESENT: no acute distress, well-developed, well-nourished Head exam: PRESENT: atraumatic, normocephalic Eye exam: PRESENT: conjunctiva pink, EOMI, PERRLA. ABSENT: scleral icterus Ear exam: PRESENT: normal external ear exam Mouth exam: PRESENT: moist, tongue midline Neck exam: ABSENT: carotid bruit, JVD, lymphadenopathy, thyromegaly Respiratory exam: PRESENT: clear to auscultation joshua. ABSENT: rales, rhonchi, wheezes Cardiovascular exam: PRESENT: RRR, +S1, +S2, systolic murmur - Grade 3/6 systolic and rumbling diastolic. ABSENT: diastolic murmur, rubs Pulses: PRESENT: normal dorsalis pedis pul, +2 pedal pulses bilateral Vascular exam: PRESENT: normal capillary refill GI/Abdominal exam: PRESENT: normal bowel sounds, soft. ABSENT: distended, guarding, mass, organolmegaly, rebound, tenderness Rectal exam: PRESENT: deferred Extremities exam: PRESENT: full ROM, +2 edema. ABSENT: calf tenderness, clubbing, pedal edema Neurological exam: PRESENT: alert, awake, oriented to person, oriented to place , oriented to time, oriented to situation, CN II-XII grossly intact. ABSENT: motor sensory deficit Psychiatric exam: PRESENT: appropriate affect, normal mood. ABSENT: homicidal ideation, suicidal ideation Skin exam: PRESENT: dry, intact, warm. ABSENT: cyanosis, rash Results Laboratory Results: 05/19/18 05:22 05/20/18 04:34 05/21/18 05/21/18 06:56 06:56 Retic Count (auto) 4.27 H Absolute Retic 0.160 H Iron 78.1 TIBC 321 % Saturation 24 Ferritin 61.70 Vitamin B12 397.0 Folate 10.60 05/10/18 05/10/18 05/10/18 09:38 15:25 21:30 Troponin I < 0.012 < 0.012 < 0.012 NT-Pro-B Natriuret Pep 05/12/18 05/13/18 05/19/18 12:53 15:55 05:22 Troponin I NT-Pro-B Natriuret Pep 3300 H 3280 H 1780 H Impressions: Renal Ultrasound 05/12/18 00:00 IMPRESSION: NORMAL RENAL AND BLADDER ULTRASOUND. Venous Doppler Study 05/13/18 00:00 IMPRESSION: NO EVIDENCE DVT OR SVT IN EITHER LEG. Renal Artery Duplex 05/13/18 10:20 IMPRESSION: NO DOPPLER EVIDENCE OF HEMODYNAMICALLY SIGNIFICANT RENAL ARTERY STENOSIS. Chest CT 05/15/18 00:00 IMPRESSION: Findings most likely related to vascular congestion and interstitial pulmonary edema. Bilateral pleural effusions. Likely pneumonia at the left base. No findings to support pulmonary fibrosis. Chest X-Ray 05/17/18 00:00 IMPRESSION: Similar small bilateral pleural effusions. Mild interstitial - reticulonodular prominence has increased since the prior study. No consolidation. Assessment & Plan - Diagnosis (1) Acute kidney injury Is this a current diagnosis for this admission?: Yes Plan: Kidney function appears to be pretty stable. She will follow up with balcony worker as outpatient she does have proteinuria which may be secondary to underlying nephropathy and to rule out other etiology (2) Acute on chronic diastolic (congestive) heart failure Is this a current diagnosis for this admission?: Yes Plan: We will continue diuresis and follow-up on BMP in a.m. Patient still has significant edema. Most of this is probably driven by her valvular incompetence viz a viz aortic incompetence and mitral regurgitation (3) Acute renal failure Qualifiers: Acute renal failure type: unspecified Qualified Code(s): N17.9 - Acute kidney failure, unspecified Is this a current diagnosis for this admission?: Yes (4) Acute respiratory failure Qualifiers: Respiratory failure complication: hypoxia Qualified Code(s): J96.01 - Acute respiratory failure with hypoxia Is this a current diagnosis for this admission?: Yes Plan: Wean off oxygen as tolerated (5) Anemia Qualifiers: Anemia type: unspecified type Qualified Code(s): D64.9 - Anemia, unspecified Is this a current diagnosis for this admission?: Yes (6) Aortic incompetence Qualifiers: Cardiac valve disease etiology: etiology unspecified Qualified Code(s): I35.1 - Nonrheumatic aortic (valve) insufficiency Is this a current diagnosis for this admission?: Yes (7) Hypertensive urgency Is this a current diagnosis for this admission?: Yes Plan: We will add hydralazine to her regimen as her blood pressure is still poorly controlled. Hopefully this will also help as a vasodilator and help to reduce preload (8) Mitral regurgitation Qualifiers: Cardiac valve disease etiology: nonrheumatic Qualified Code(s): I34.0 - Nonrheumatic mitral (valve) insufficiency Is this a current diagnosis for this admission?: Yes (9) Diabetes mellitus Qualifiers: Diabetes mellitus type: type 2 Diabetes mellitus complication status: with hypoglycemia Is this a current diagnosis for this admission?: Yes Plan: Her blood sugar continues to be borderline. Will decrease Lantus and continue with sliding scale insulin - Time Time Spent with patient: 15-24 minutes Medications reviewed and adjusted accordingly: Yes Anticipated discharge: Home Within: within 48 hours
[2018-05-21] MEDS: HYDRALAZINE HCL 25 MG TABLET PO SCH (18:29)
[2018-05-21] MEDS: ATORVASTATIN CALCIUM 40 MG TABLET PO SCH (22:48)
[2018-05-22] MEDS: KETOROLAC TROMETHAMINE INJ/PF 30 MG/1 ML SDV IV PRN ×3 (00:06→15:03)
[2018-05-22] MEDS: HYDROCODONE/ACETAMINOPHEN 10-325 MG TABLET PO SCH ×4 (00:07→18:29)
[2018-05-22] MEDS: METOCLOPRAMIDE HCL INJ/PF 10 MG/2 ML SDV IV SCH ×4 (00:42→18:31)
[2018-05-22] MEDS: FUROSEMIDE INJ/PF 40 MG/4 ML SDV IV SCH (06:29)
[2018-05-22] MEDS: HEPARIN SOD (PORCINE) 5,000 UNIT/ML 1 ML SYRINGE SUBCUT SCH ×3 (06:30→21:54)
[2018-05-22] MEDS: AMLODIPINE BESYLATE 5 MG TABLET PO SCH ×2 (06:33→18:29)
[2018-05-22] MEDS: GABAPENTIN 300 MG CAPSULE PO SCH ×3 (06:33→21:58)
[2018-05-22] MEDS: HYDRALAZINE HCL 25 MG TABLET PO SCH ×3 (06:36→21:55)
[2018-05-22 06:55] LABS: ABSOLUTE EOSINOPHILS # (AUTO) 0.2 10^3/uL (0.0-0.6); ABSOLUTE LYMPHOCYTES (AUTO) 1.3 10^3/uL (0.5-4.7); ABSOLUTE MONOCYTES (AUTO) 0.6 10^3/uL (0.1-1.4); ABSOLUTE NEUT (AUTO) 2.9 10^3/uL (1.7-8.2); BASOPHILS % (AUTO) 0.8 % (0-2); HEMATOCRIT 26.9 % (36.0-47.0); HEMOGLOBIN 9.3 g/dL (12.0-15.5); LYMPHOCYTES % (AUTO) 26.3 % (13-45); MEAN CORPUSCULAR HEMOGLOBIN 27.8 pg (27.0-33.4); MEAN CORPUSCULAR HGB CONC 34.5 g/dL (32.0-36.0); MEAN CORPUSCULAR VOLUME 81 fl (80-97); MONOCYTES % (AUTO) 11.3 % (3-13); PLATELET COUNT 196 10^3/uL (150-450); RED BLOOD COUNT 3.34 10^6/uL (3.72-5.28); RED CELL DISTRIBUTION WIDTH 13.6 % (11.5-14.0); SEGMENTED NEUTROPHILS % (AUTO) 57.6 % (42-78); TOTAL CELLS COUNTED % (AUTO) 100 %; WHITE BLOOD COUNT 5.1 10^3/uL (4.0-10.5)
[2018-05-22 07:13] LABS: ANION GAP 10 (5-19); BLOOD UREA NITROGEN 35 mg/dL (7-20); CALCIUM 8.2 mg/dL (8.4-10.2); CARBON DIOXIDE 27 mmol/L (22-30); CHLORIDE 92 mmol/L (98-107); GLUCOSE 125 mg/dL (75-110); POTASSIUM 4.2 mmol/L (3.6-5.0); SODIUM 128.5 mmol/L (137-145)
[2018-05-22] MEDS: ONDANSETRON 4 MG TAB.RAPDIS PO PRN ×2 (09:15→15:04)
[2018-05-22] MEDS: FAMOTIDINE 20 MG TABLET PO SCH ×2 (10:45→23:07)
--- NOTE | 2018-05-22 11:36 | PDOC PROGRESS REPORT ---
Subjective Progress Note for:: 05/22/18 Subjective:: The patient is an unfortunate 58-year-old female who was admitted to the hospital with a congestive heart failure exacerbation. She has a history of proteinuria that is approaching nephrotic range. She follows with cardiology in [place] and recently established with a table maker as an outpatient. Her 2D echocardiogram revealed normal LV function. She was found to have significant valvular disease. She has been followed closely by cardiology. Patient states she has a significant swelling as outpatient, on Lasix 80 mg twice daily. She was treated with IV Lasix, but the patient's kidney function worsened. Lasix was held, renal function has normalized again. She received CHF education as well as dietary education. She is still having nausea today Reason For Visit: HEART FAILURE Physical Exam Vital Signs: Temp Pulse Resp BP Pulse Ox 97.4 F 73 16 159/60 H 94 05/22/18 08:00 05/22/18 08:00 05/22/18 08:00 05/22/18 08:00 05/22/18 08:00 Intake & Output 05/21/18 05/22/18 05/23/18 06:59 06:59 06:59 Intake Total 522 Output Total 3150 Balance -2628 Weight 66.4 kg 65.3 kg General appearance: PRESENT: no acute distress, well-developed, well-nourished Head exam: PRESENT: atraumatic, normocephalic Eye exam: PRESENT: conjunctiva pink, EOMI, PERRLA. ABSENT: scleral icterus Ear exam: PRESENT: normal external ear exam Mouth exam: PRESENT: moist, tongue midline Neck exam: ABSENT: carotid bruit, JVD, lymphadenopathy, thyromegaly Respiratory exam: PRESENT: crackles - Basal. ABSENT: rales, rhonchi, wheezes Cardiovascular exam: PRESENT: RRR, +S1, +S2, systolic murmur. ABSENT: diastolic murmur, rubs Pulses: PRESENT: normal dorsalis pedis pul Vascular exam: PRESENT: normal capillary refill GI/Abdominal exam: PRESENT: normal bowel sounds, soft. ABSENT: distended, guarding, mass, organolmegaly, rebound, tenderness Rectal exam: PRESENT: deferred Extremities exam: PRESENT: full ROM, +2 edema - improved. ABSENT: calf tenderness, clubbing, pedal edema Neurological exam: PRESENT: alert, awake, oriented to person, oriented to place , oriented to time, oriented to situation, CN II-XII grossly intact. ABSENT: motor sensory deficit Psychiatric exam: PRESENT: appropriate affect, normal mood. ABSENT: homicidal ideation, suicidal ideation Skin exam: PRESENT: dry, intact, warm. ABSENT: cyanosis, rash Results Laboratory Results: 05/22/18 05:54 05/22/18 05:54 05/22/18 05/22/18 05:54 05:54 WBC 5.1 RBC 3.34 L Hgb 9.3 L Hct 26.9 L MCV 81 MCH 27.8 MCHC 34.5 RDW 13.6 Plt Count 196 Seg Neutrophils % 57.6 Lymphocytes % 26.3 Monocytes % 11.3 Eosinophils % 4.0 Basophils % 0.8 Absolute Neutrophils 2.9 Absolute Lymphocytes 1.3 Absolute Monocytes 0.6 Absolute Eosinophils 0.2 Absolute Basophils 0.0 Sodium 128.5 L Potassium 4.2 Chloride 92 L Carbon Dioxide 27 Anion Gap 10 BUN 35 H Creatinine 1.07 Est GFR ( Amer) > 60 Est GFR (Non-Af Amer) 53 L Glucose 125 H Calcium 8.2 L 05/10/18 05/10/18 05/10/18 09:38 15:25 21:30 Troponin I < 0.012 < 0.012 < 0.012 NT-Pro-B Natriuret Pep 05/12/18 05/13/18 05/19/18 12:53 15:55 05:22 Troponin I NT-Pro-B Natriuret Pep 3300 H 3280 H 1780 H 05/22/18 05:54 Troponin I NT-Pro-B Natriuret Pep 1090 H Impressions: Renal Ultrasound 05/12/18 00:00 IMPRESSION: NORMAL RENAL AND BLADDER ULTRASOUND. Venous Doppler Study 05/13/18 00:00 IMPRESSION: NO EVIDENCE DVT OR SVT IN EITHER LEG. Renal Artery Duplex 05/13/18 10:20 IMPRESSION: NO DOPPLER EVIDENCE OF HEMODYNAMICALLY SIGNIFICANT RENAL ARTERY STENOSIS. Chest CT 05/15/18 00:00 IMPRESSION: Findings most likely related to vascular congestion and interstitial pulmonary edema. Bilateral pleural effusions. Likely pneumonia at the left base. No findings to support pulmonary fibrosis. Chest X-Ray 05/17/18 00:00 IMPRESSION: Similar small bilateral pleural effusions. Mild interstitial - reticulonodular prominence has increased since the prior study. No consolidation. Assessment & Plan - Diagnosis (1) Acute kidney injury Is this a current diagnosis for this admission?: Yes Plan: Worse as expected with diuresis. Cont to monitor (2) Acute on chronic diastolic (congestive) heart failure Is this a current diagnosis for this admission?: Yes Plan: Hold Lasix and hctz as she appears to be over diuresed (3) Acute renal failure Qualifiers: Acute renal failure type: unspecified Qualified Code(s): N17.9 - Acute kidney failure, unspecified Is this a current diagnosis for this admission?: Yes (4) Acute respiratory failure Qualifiers: Respiratory failure complication: hypoxia Qualified Code(s): J96.01 - Acute respiratory failure with hypoxia Is this a current diagnosis for this admission?: Yes (5) Anemia Qualifiers: Anemia type: unspecified type Qualified Code(s): D64.9 - Anemia, unspecified Is this a current diagnosis for this admission?: Yes (6) Aortic incompetence Qualifiers: Cardiac valve disease etiology: etiology unspecified Qualified Code(s): I35.1 - Nonrheumatic aortic (valve) insufficiency Is this a current diagnosis for this admission?: Yes (7) Hypertensive urgency Is this a current diagnosis for this admission?: Yes (8) Mitral regurgitation Qualifiers: Cardiac valve disease etiology: nonrheumatic Qualified Code(s): I34.0 - Nonrheumatic mitral (valve) insufficiency Is this a current diagnosis for this admission?: Yes (9) Diabetes mellitus Qualifiers: Diabetes mellitus type: type 2 Diabetes mellitus complication status: with hypoglycemia Is this a current diagnosis for this admission?: Yes (10) Hypochloremic alkalosis Is this a current diagnosis for this admission?: Yes Plan: Diuretic induced (11) Hyponatremia Is this a current diagnosis for this admission?: Yes Plan: Hold diuretics, f/u bmp in am - Time Time Spent with patient: 15-24 minutes Medications reviewed and adjusted accordingly: Yes Anticipated discharge: Home
[2018-05-22] MEDS: ASPIRIN 81 MG TABLET, ENT COATED PO SCH (11:59)
[2018-05-22] MEDS: LISINOPRIL 10 MG TABLET PO SCH ×2 (11:59→23:09)
[2018-05-22] MEDS: NEBIVOLOL HCL 10 MG TABLET PO SCH (12:00)
[2018-05-22] MEDS: INSULIN GLARGINE,HUM.REC.ANLOG 1,000 UNIT/10 ML UNIT SUBCUT SCH (12:01)
[2018-05-22] MEDS: HYDROCHLOROTHIAZIDE 25 MG TABLET PO SCH (15:04)
[2018-05-22] MEDS: ATORVASTATIN CALCIUM 40 MG TABLET PO SCH (21:56)
[2018-05-23] MEDS: METOCLOPRAMIDE HCL INJ/PF 10 MG/2 ML SDV IV SCH ×5 (00:01→23:49)
[2018-05-23] MEDS: HYDROCODONE/ACETAMINOPHEN 10-325 MG TABLET PO SCH ×5 (00:01→23:49)
[2018-05-23] MEDS: KETOROLAC TROMETHAMINE INJ/PF 30 MG/1 ML SDV IV PRN ×2 (00:02→08:46)
[2018-05-23] MEDS: HEPARIN SOD (PORCINE) 5,000 UNIT/ML 1 ML SYRINGE SUBCUT SCH ×3 (05:59→22:29)
[2018-05-23] MEDS: GABAPENTIN 300 MG CAPSULE PO SCH ×3 (06:00→22:30)
[2018-05-23] MEDS: AMLODIPINE BESYLATE 5 MG TABLET PO SCH ×2 (06:01→17:38)
[2018-05-23] MEDS: HYDRALAZINE HCL 25 MG TABLET PO SCH ×3 (06:02→22:33)
[2018-05-23 06:34] LABS: ANION GAP 8 (5-19); BLOOD UREA NITROGEN 36 mg/dL (7-20); CALCIUM 8.4 mg/dL (8.4-10.2); CARBON DIOXIDE 28 mmol/L (22-30); CHLORIDE 91 mmol/L (98-107); GLUCOSE 159 mg/dL (75-110); POTASSIUM 4.4 mmol/L (3.6-5.0); SODIUM 127.1 mmol/L (137-145)
[2018-05-23] MEDS: INSULIN LISPRO 100 UNIT/ML 3 ML VIAL SUBCUT PRN (08:40)
[2018-05-23] MEDS: NEBIVOLOL HCL 10 MG TABLET PO SCH (11:05)
[2018-05-23] MEDS: LISINOPRIL 10 MG TABLET PO SCH ×2 (11:05→22:31)
[2018-05-23] MEDS: ONDANSETRON 4 MG TAB.RAPDIS PO PRN (11:05)
[2018-05-23] MEDS: ASPIRIN 81 MG TABLET, ENT COATED PO SCH (11:06)
[2018-05-23] MEDS: INSULIN GLARGINE,HUM.REC.ANLOG 1,000 UNIT/10 ML UNIT SUBCUT SCH (11:07)
[2018-05-23] MEDS: FAMOTIDINE 20 MG TABLET PO SCH ×2 (11:07→22:30)
--- NOTE | 2018-05-23 13:39 | PDOC PROGRESS REPORT ---
Subjective Progress Note for:: 05/23/18 Subjective:: The patient is an unfortunate 58-year-old female who was admitted to the hospital with a congestive heart failure exacerbation. She has a history of proteinuria that is approaching nephrotic range. She follows with cardiology in [place] and recently established with a organic gardening teacher as an outpatient. Her 2D echocardiogram revealed normal LV function. She was found to have significant valvular disease. She has been followed closely by cardiology. Patient states she has a significant swelling as outpatient, on Lasix 80 mg twice daily. She was treated with IV Lasix, but the patient's kidney function worsened. Lasix was held, renal function has normalized again. She received CHF education as well as dietary education. She is still c/o nausea but no vomiting today. She likely has a componenet of Gastroparesis Reason For Visit: HEART FAILURE Physical Exam Vital Signs: Temp Pulse Resp BP Pulse Ox 97.5 F 70 16 144/54 H 100 05/23/18 12:00 05/23/18 12:00 05/23/18 12:00 05/23/18 12:00 05/23/18 12:00 Intake & Output 05/22/18 05/23/18 05/24/18 06:59 06:59 06:59 Intake Total 1702 Output Total 3250 Balance -1548 Weight 65.3 kg 65.1 kg General appearance: PRESENT: no acute distress, well-developed, well-nourished Head exam: PRESENT: atraumatic, normocephalic Eye exam: PRESENT: conjunctiva pink, EOMI, PERRLA. ABSENT: scleral icterus Ear exam: PRESENT: normal external ear exam Mouth exam: PRESENT: moist, tongue midline Neck exam: ABSENT: carotid bruit, JVD, lymphadenopathy, thyromegaly Respiratory exam: PRESENT: decreased breath sounds. ABSENT: rales, rhonchi, wheezes Cardiovascular exam: PRESENT: RRR, +S1, +S2, systolic murmur. ABSENT: diastolic murmur, rubs Pulses: PRESENT: normal dorsalis pedis pul Vascular exam: PRESENT: normal capillary refill GI/Abdominal exam: PRESENT: normal bowel sounds, soft. ABSENT: distended, guarding, mass, organolmegaly, rebound, tenderness Rectal exam: PRESENT: deferred Extremities exam: PRESENT: full ROM, pedal edema, +2 edema. ABSENT: calf tenderness, clubbing Musculoskeletal exam: PRESENT: ambulatory Neurological exam: PRESENT: alert, awake, oriented to person, oriented to place , oriented to time, oriented to situation, CN II-XII grossly intact. ABSENT: motor sensory deficit Psychiatric exam: PRESENT: appropriate affect, normal mood. ABSENT: homicidal ideation, suicidal ideation Skin exam: PRESENT: dry, intact, warm. ABSENT: cyanosis, rash Results Laboratory Results: 05/22/18 05:54 05/23/18 05:18 05/23/18 05:18 Sodium 127.1 L Potassium 4.4 Chloride 91 L Carbon Dioxide 28 Anion Gap 8 BUN 36 H Creatinine 1.24 Est GFR ( Amer) 54 L Est GFR (Non-Af Amer) 45 L Glucose 159 H Calcium 8.4 05/10/18 05/10/18 05/10/18 09:38 15:25 21:30 Troponin I < 0.012 < 0.012 < 0.012 NT-Pro-B Natriuret Pep 05/12/18 05/13/18 05/19/18 12:53 15:55 05:22 Troponin I NT-Pro-B Natriuret Pep 3300 H 3280 H 1780 H 05/22/18 05:54 Troponin I NT-Pro-B Natriuret Pep 1090 H Impressions: Renal Ultrasound 05/12/18 00:00 IMPRESSION: NORMAL RENAL AND BLADDER ULTRASOUND. Venous Doppler Study 05/13/18 00:00 IMPRESSION: NO EVIDENCE DVT OR SVT IN EITHER LEG. Renal Artery Duplex 05/13/18 10:20 IMPRESSION: NO DOPPLER EVIDENCE OF HEMODYNAMICALLY SIGNIFICANT RENAL ARTERY STENOSIS. Chest CT 05/15/18 00:00 IMPRESSION: Findings most likely related to vascular congestion and interstitial pulmonary edema. Bilateral pleural effusions. Likely pneumonia at the left base. No findings to support pulmonary fibrosis. Chest X-Ray 05/17/18 00:00 IMPRESSION: Similar small bilateral pleural effusions. Mild interstitial - reticulonodular prominence has increased since the prior study. No consolidation. Assessment & Plan - Diagnosis (1) Acute kidney injury Is this a current diagnosis for this admission?: Yes Plan: We will continue to monitor kidney function (2) Acute on chronic diastolic (congestive) heart failure Is this a current diagnosis for this admission?: Yes (3) Acute renal failure Qualifiers: Acute renal failure type: unspecified Qualified Code(s): N17.9 - Acute kidney failure, unspecified Is this a current diagnosis for this admission?: Yes (4) Acute respiratory failure Qualifiers: Respiratory failure complication: hypoxia Qualified Code(s): J96.01 - Acute respiratory failure with hypoxia Is this a current diagnosis for this admission?: Yes Plan: Wean off oxygen as tolerated Follow-up chest x-ray today (5) Anemia Qualifiers: Anemia type: unspecified type Qualified Code(s): D64.9 - Anemia, unspecified Is this a current diagnosis for this admission?: Yes (6) Aortic incompetence Qualifiers: Cardiac valve disease etiology: etiology unspecified Qualified Code(s): I35.1 - Nonrheumatic aortic (valve) insufficiency Is this a current diagnosis for this admission?: Yes (7) Hypertensive urgency Is this a current diagnosis for this admission?: Yes (8) Mitral regurgitation Qualifiers: Cardiac valve disease etiology: nonrheumatic Qualified Code(s): I34.0 - Nonrheumatic mitral (valve) insufficiency Is this a current diagnosis for this admission?: Yes (9) Diabetes mellitus Qualifiers: Diabetes mellitus type: type 2 Diabetes mellitus complication status: with hypoglycemia Is this a current diagnosis for this admission?: Yes (10) Hypochloremic alkalosis Is this a current diagnosis for this admission?: Yes Plan: Diuretic induced especially hydrochlorothiazide with hyponatremia. Will continue to hold hydrochlorothiazide (11) Hyponatremia Is this a current diagnosis for this admission?: Yes Plan: Hold diuretics, f/u bmp in am Especially due to hydrochlorothiazide which has a natriuretic effect at the distal tubules - Time Time Spent with patient: 15-24 minutes Medications reviewed and adjusted accordingly: Yes Anticipated discharge: Home Within: within 72 hours - Inpatient Certification Based on my medical assessment, after consideration of the patient's comorbidities, presenting symptoms, or acuity I expect that the services needed warrant INPATIENT care.: Yes Medical Necessity: Need For Continuous Telemetry Monitoring, Risk of Complication if Not Cared For in Hospital
--- NOTE | 2018-05-23 15:37 | RADIOLOGY REPORT (SQ) ---
EXAM DESCRIPTION: CHEST 2 VIEWS COMPLETED DATE/TIME: 05/23/2018 3:11 pm REASON FOR STUDY: F/u pleural effusion, PVC COMPARISON: 05/17/2018 EXAM PARAMETERS: NUMBER OF VIEWS: two views TECHNIQUE: Digital Frontal and Lateral radiographic views of the chest acquired. RADIATION DOSE: NA LIMITATIONS: none FINDINGS: LUNGS AND PLEURA: Small bilateral pleural effusions are identified right greater than left which appears slightly larger on the right and slightly smaller on the left as compared to the previ ous study. There is some minimal ill-defined increased density in the right lung base which could re present atelectatic changes or developing infiltrate. MEDIASTINUM AND HILAR STRUCTURES: No masses or contour abnormalities. HEART AND VASCULAR STRUCTURES: The configuration of the heart mediastinal structures is unchanged. BONES: No acute findings. HARDWARE: None in the chest. OTHER: No other significant finding. IMPRESSION: Small bilateral pleural effusions right greater than left as noted above. Other finding s as noted above TECHNICAL DOCUMENTATION: JOB ID: [id number] [employer]- All Rights Reserved Reading location - IP/workstation name: [email or web address]
[2018-05-23] MEDS: ATORVASTATIN CALCIUM 40 MG TABLET PO SCH (22:30)
[2018-05-24] MEDS ORDERED: HYDRALAZINE HCL INJ/PF 20 MG/1 ML SDV ONE (01:28)
[2018-05-24] MEDS ORDERED: KETOROLAC TROMETHAMINE INJ/PF 30 MG/1 ML SDV ONE (01:28)
[2018-05-24] MEDS ORDERED: KETOROLAC TROMETHAMINE INJ/PF 30 MG/1 ML SDV IV PRN (01:31)
[2018-05-24] MEDS ORDERED: HYDRALAZINE HCL INJ/PF 20 MG/1 ML SDV IV ONE (01:45)
[2018-05-24] MEDS ORDERED: FUROSEMIDE INJ/PF 20 MG/2 ML SDV IV ONE (04:30)
[2018-05-24 05:37] LABS: ABSOLUTE EOSINOPHILS # (AUTO) 0.3 10^3/uL (0.0-0.6); ABSOLUTE LYMPHOCYTES (AUTO) 1.3 10^3/uL (0.5-4.7); ABSOLUTE MONOCYTES (AUTO) 0.7 10^3/uL (0.1-1.4); ABSOLUTE NEUT (AUTO) 4.1 10^3/uL (1.7-8.2); BASOPHILS % (AUTO) 0.6 % (0-2); EOSINOPHILS % (AUTO) 4.2 % (0-6); HEMOGLOBIN 10.1 g/dL (12.0-15.5); MEAN CORPUSCULAR HEMOGLOBIN 28.4 pg (27.0-33.4); MEAN CORPUSCULAR HGB CONC 36.1 g/dL (32.0-36.0); MEAN CORPUSCULAR VOLUME 79 fl (80-97); MONOCYTES % (AUTO) 10.6 % (3-13); PLATELET COUNT 201 10^3/uL (150-450); RED BLOOD COUNT 3.56 10^6/uL (3.72-5.28); RED CELL DISTRIBUTION WIDTH 13.7 % (11.5-14.0); SEGMENTED NEUTROPHILS % (AUTO) 63.6 % (42-78); TOTAL CELLS COUNTED % (AUTO) 100 %; WHITE BLOOD COUNT 6.4 10^3/uL (4.0-10.5)
[2018-05-24 06:05] LABS: ANION GAP 9 (5-19); BLOOD UREA NITROGEN 34 mg/dL (7-20); CALCIUM 8.5 mg/dL (8.4-10.2); CARBON DIOXIDE 27 mmol/L (22-30); CHLORIDE 90 mmol/L (98-107); GLUCOSE 133 mg/dL (75-110); POTASSIUM 4.3 mmol/L (3.6-5.0); SODIUM 125.9 mmol/L (137-145)
[2018-05-24] MEDS: GABAPENTIN 300 MG CAPSULE PO SCH ×3 (06:10→22:35)
[2018-05-24] MEDS: HYDRALAZINE HCL 25 MG TABLET PO SCH ×3 (06:10→22:35)
[2018-05-24] MEDS: HYDROCODONE/ACETAMINOPHEN 10-325 MG TABLET PO SCH ×4 (06:10→23:42)
[2018-05-24] MEDS: AMLODIPINE BESYLATE 5 MG TABLET PO SCH ×2 (06:10→18:06)
[2018-05-24] MEDS: METOCLOPRAMIDE HCL INJ/PF 10 MG/2 ML SDV IV SCH ×4 (06:11→23:45)
[2018-05-24] MEDS: HEPARIN SOD (PORCINE) 5,000 UNIT/ML 1 ML SYRINGE SUBCUT SCH ×3 (06:11→22:36)
[2018-05-24] MEDS: ONDANSETRON 4 MG TAB.RAPDIS PO PRN (06:19)
[2018-05-24] MEDS: ASPIRIN 81 MG TABLET, ENT COATED PO SCH (10:45)
[2018-05-24] MEDS: FAMOTIDINE 20 MG TABLET PO SCH ×2 (10:45→22:35)
[2018-05-24] MEDS: NEBIVOLOL HCL 10 MG TABLET PO SCH (10:45)
[2018-05-24] MEDS: LISINOPRIL 10 MG TABLET PO SCH ×2 (10:46→22:35)
[2018-05-24] MEDS: INSULIN GLARGINE,HUM.REC.ANLOG 1,000 UNIT/10 ML UNIT SUBCUT SCH (10:47)
--- NOTE | 2018-05-24 16:05 | PDOC PROGRESS REPORT ---
Subjective Progress Note for:: 05/24/18 Subjective:: The patient is an unfortunate 58-year-old female who was admitted to the hospital with a congestive heart failure exacerbation. She has a history of proteinuria that is approaching nephrotic range. She follows with cardiology in [place] and recently established with a senior data integration developer as an outpatient. Her 2D echocardiogram revealed normal LV function. She was found to have significant valvular disease. She has been followed closely by cardiology. Patient states she has a significant swelling as outpatient, on Lasix 80 mg twice daily. She was treated with IV Lasix, but the patient's kidney function worsened. Lasix was held, renal function has normalized again. She received CHF education as well as dietary education. Patient apparently had an episode of dyspnea during the night and had yto receive Lasix which had been on hold due to her hyponatremia. BNP is beginning to climb back up. I/o noted to be grossly positive so I have placed her on fluid restriction. Will recheck BMP with the fluid restriction in am. HCTZ more natriuretic than Lasix so will not restart Reason For Visit: HEART FAILURE Physical Exam Vital Signs: Temp Pulse Resp BP Pulse Ox 98.3 F 65 17 139/57 H 97 05/24/18 12:02 05/24/18 14:00 05/24/18 12:02 05/24/18 12:02 05/24/18 15:32 Intake & Output 05/23/18 05/24/18 05/25/18 06:59 06:59 06:59 Intake Total 1702 1587 Output Total 3250 2650 Balance -1548 -1063 Weight 65.1 kg 66.1 kg Results Laboratory Results: 05/24/18 04:58 05/24/18 04:58 05/24/18 05/24/18 04:58 04:58 WBC 6.4 RBC 3.56 L Hgb 10.1 L Hct 28.0 L MCV 79 L MCH 28.4 MCHC 36.1 H RDW 13.7 Plt Count 201 Seg Neutrophils % 63.6 Lymphocytes % 21.0 Monocytes % 10.6 Eosinophils % 4.2 Basophils % 0.6 Absolute Neutrophils 4.1 Absolute Lymphocytes 1.3 Absolute Monocytes 0.7 Absolute Eosinophils 0.3 Absolute Basophils 0.0 Sodium 125.9 L Potassium 4.3 Chloride 90 L Carbon Dioxide 27 Anion Gap 9 BUN 34 H Creatinine 1.19 Est GFR ( Amer) 57 L Est GFR (Non-Af Amer) 47 L Glucose 133 H Calcium 8.5 05/10/18 05/10/18 05/10/18 09:38 15:25 21:30 Troponin I < 0.012 < 0.012 < 0.012 NT-Pro-B Natriuret Pep 05/12/18 05/13/18 05/19/18 12:53 15:55 05:22 Troponin I NT-Pro-B Natriuret Pep 3300 H 3280 H 1780 H 05/22/18 05/24/18 05/24/18 05:54 04:58 04:58 Troponin I < 0.012 NT-Pro-B Natriuret Pep 1090 H 1510 H 05/24/18 11:38 Troponin I < 0.012 NT-Pro-B Natriuret Pep Impressions: Renal Ultrasound 05/12/18 00:00 IMPRESSION: NORMAL RENAL AND BLADDER ULTRASOUND. Venous Doppler Study 05/13/18 00:00 IMPRESSION: NO EVIDENCE DVT OR SVT IN EITHER LEG. Renal Artery Duplex 05/13/18 10:20 IMPRESSION: NO DOPPLER EVIDENCE OF HEMODYNAMICALLY SIGNIFICANT RENAL ARTERY STENOSIS. Chest CT 05/15/18 00:00 IMPRESSION: Findings most likely related to vascular congestion and interstitial pulmonary edema. Bilateral pleural effusions. Likely pneumonia at the left base. No findings to support pulmonary fibrosis. Chest X-Ray 05/23/18 00:00 IMPRESSION: Small bilateral pleural effusions right greater than left as noted above. Other findings as noted above Assessment & Plan - Diagnosis (1) Acute kidney injury Is this a current diagnosis for this admission?: Yes (2) Acute on chronic diastolic (congestive) heart failure Is this a current diagnosis for this admission?: Yes (3) Acute renal failure Qualifiers: Acute renal failure type: unspecified Qualified Code(s): N17.9 - Acute kidney failure, unspecified Is this a current diagnosis for this admission?: Yes (4) Acute respiratory failure Qualifiers: Respiratory failure complication: hypoxia Qualified Code(s): J96.01 - Acute respiratory failure with hypoxia Is this a current diagnosis for this admission?: Yes Plan: Wean off oxygen as tolerated Follow-up chest x-ray grossly unchanged with some pleyral effusion. If not clinically improved may need to reassess (5) Anemia Qualifiers: Anemia type: unspecified type Qualified Code(s): D64.9 - Anemia, unspecified Is this a current diagnosis for this admission?: Yes (6) Aortic incompetence Qualifiers: Cardiac valve disease etiology: etiology unspecified Qualified Code(s): I35.1 - Nonrheumatic aortic (valve) insufficiency Is this a current diagnosis for this admission?: Yes Plan: Contributing to CHF (7) Hypertensive urgency Is this a current diagnosis for this admission?: Yes (8) Mitral regurgitation Qualifiers: Cardiac valve disease etiology: nonrheumatic Qualified Code(s): I34.0 - Nonrheumatic mitral (valve) insufficiency Is this a current diagnosis for this admission?: Yes (9) Diabetes mellitus Qualifiers: Diabetes mellitus type: type 2 Diabetes mellitus complication status: with hypoglycemia Is this a current diagnosis for this admission?: Yes (10) Hypochloremic alkalosis Is this a current diagnosis for this admission?: Yes Plan: Secondary to diuretics. Monitor BMP (11) Hyponatremia Is this a current diagnosis for this admission?: Yes - Time Time Spent with patient: 15-24 minutes Medications reviewed and adjusted accordingly: Yes Anticipated discharge: Home Within: within 72 hours - Inpatient Certification Based on my medical assessment, after consideration of the patient's comorbidities, presenting symptoms, or acuity I expect that the services needed warrant INPATIENT care.: Yes Medical Necessity: Need For Continuous Telemetry Monitoring, Other - Need for diuresis, electrolyte monitor
[2018-05-24] MEDS: FUROSEMIDE 20 MG TABLET PO SCH (18:05)
[2018-05-24] MEDS: ATORVASTATIN CALCIUM 40 MG TABLET PO SCH (22:36)
[2018-05-25] MEDS: HEPARIN SOD (PORCINE) 5,000 UNIT/ML 1 ML SYRINGE SUBCUT SCH ×3 (05:47→22:28)
[2018-05-25] MEDS: HYDROCODONE/ACETAMINOPHEN 10-325 MG TABLET PO SCH ×4 (05:48→23:43)
[2018-05-25] MEDS: HYDRALAZINE HCL 25 MG TABLET PO SCH ×3 (05:51→22:29)
[2018-05-25] MEDS: GABAPENTIN 300 MG CAPSULE PO SCH ×3 (05:51→22:29)
[2018-05-25] MEDS: METOCLOPRAMIDE HCL INJ/PF 10 MG/2 ML SDV IV SCH ×4 (05:53→23:43)
[2018-05-25] MEDS: AMLODIPINE BESYLATE 5 MG TABLET PO SCH ×2 (05:54→17:36)
[2018-05-25 07:38] LABS: ABSOLUTE EOSINOPHILS # (AUTO) 0.2 10^3/uL (0.0-0.6); ABSOLUTE LYMPHOCYTES (AUTO) 1.3 10^3/uL (0.5-4.7); ABSOLUTE MONOCYTES (AUTO) 0.6 10^3/uL (0.1-1.4); ABSOLUTE NEUT (AUTO) 3.5 10^3/uL (1.7-8.2); BASOPHILS % (AUTO) 0.6 % (0-2); EOSINOPHILS % (AUTO) 3.7 % (0-6); HEMATOCRIT 27.7 % (36.0-47.0); LYMPHOCYTES % (AUTO) 22.7 % (13-45); MEAN CORPUSCULAR HEMOGLOBIN 28.5 pg (27.0-33.4); MEAN CORPUSCULAR VOLUME 79 fl (80-97); MONOCYTES % (AUTO) 11.2 % (3-13); PLATELET COUNT 175 10^3/uL (150-450); RED BLOOD COUNT 3.49 10^6/uL (3.72-5.28); SEGMENTED NEUTROPHILS % (AUTO) 61.8 % (42-78); TOTAL CELLS COUNTED % (AUTO) 100 %; WHITE BLOOD COUNT 5.7 10^3/uL (4.0-10.5)
[2018-05-25 08:07] LABS: ANION GAP 8 (5-19); BLOOD UREA NITROGEN 36 mg/dL (7-20); CALCIUM 8.3 mg/dL (8.4-10.2); CARBON DIOXIDE 27 mmol/L (22-30); CHLORIDE 91 mmol/L (98-107); GLUCOSE 115 mg/dL (75-110); POTASSIUM 4.5 mmol/L (3.6-5.0); SODIUM 126.2 mmol/L (137-145)
[2018-05-25] MEDS: FUROSEMIDE 20 MG TABLET PO SCH ×2 (09:24→17:36)
[2018-05-25] MEDS: ASPIRIN 81 MG TABLET, ENT COATED PO SCH (09:24)
[2018-05-25] MEDS: LISINOPRIL 10 MG TABLET PO SCH (09:24)
[2018-05-25] MEDS: NEBIVOLOL HCL 10 MG TABLET PO SCH (09:24)
[2018-05-25] MEDS: INSULIN GLARGINE,HUM.REC.ANLOG 1,000 UNIT/10 ML UNIT SUBCUT SCH (09:27)
[2018-05-25] MEDS: FAMOTIDINE 20 MG TABLET PO SCH ×2 (09:27→22:30)
--- NOTE | 2018-05-25 11:06 | PROGRESS NOTE E ---
Progress Note NAME: JASIMN MURDOCK : 1960 AGE: 58Y DATE: 05/25/2018 ROOM: 428 SUBJECTIVE: The patient is currently lying in bed. The patient states she feels better than when she came in, and a little better compared to yesterday. The patient denies any nausea, vomiting. The patient has had some shortness of breath related to exertion, and the patient does not voice any other concerns at this time. REVIEW OF SYSTEMS: The rest of the review of systems is negative. MEDICATIONS: Medications have been reviewed. OBJECTIVE: GENERAL: The patient is a 58-year-old female who is awake, alert, and oriented to person, place, time, and situation. She is verbal, conversational. Does not appear to be distressed. VITAL SIGNS: Temperature 97.6, pulse 69, respirations 14, blood pressure 144/57, oxygen saturation 97% on room air. SKIN: Warm and dry, no rash. Not diaphoretic. HEENT: Pupils equal, round, reactive to light and accommodation. NECK: No evidence of JVP. CVS: Heart is regular. Does have a mitral murmur. No rub. CHEST: Diminished, especially on the left side. Symmetrical, unlabored. ABDOMEN: Soft, nontender, nondistended. EXTREMITIES: No edema. PSYCHIATRIC: Appropriate affect, pleasant mood. DIAGNOSTICS: Lab values are as follows. Hematology obtained on 05/25/2018 demonstrated white count 5.7, hemoglobin 10.0, hematocrit 27.7, platelet count 175,000. Chemistries obtained on 05/25/2018: Sodium 126, potassium 4.5, chloride 91, carbon dioxide 27, BUN 36, creatinine 1.14. Glucose 115. Calcium is 8.3. ASSESSMENT AND PLAN: 1. ACUTE ON CHRONIC DIASTOLIC CONGESTIVE HEART FAILURE. The patient appears to be improving. Will obtain chest x-ray PA and lateral today to follow up pleural effusions, given the patient is still requiring some O2. 2. ACUTE HYPOXEMIC RESPIRATORY FAILURE. Again, the patient is requiring oxygen, which is not her baseline. Will follow chest x-ray. If the patient's effusions appear to be increased, will schedule for thoracentesis. 3. ACUTE KIDNEY INJURY. This is resolved. 4. ANEMIA, POSSIBLY UNDERLYING KIDNEY DISEASE. Will follow. 5. VALVULAR DISEASE, INCLUDING AORTIC AND MITRAL REGURGITATION. Do appreciate Cardiology input. 6. HYPERTENSIVE URGENCY. Blood pressures overall have improved. 7. DIABETES MELLITUS TYPE 2. The patient does have much better glycemic control. Poorly controlled on outpatient basis. 8. HYPONATREMIA. This appears pretty significant. Will hold the patient's lisinopril today and will obtain serum and urine osmolalities and sodium, and evaluate and follow. 9. HYPERKALEMIC ALKALOSIS. This was secondary to diuretics. Will monitor the patient's BMP. DISPOSITION: The patient is a full code. Pending the patient's symptomatology and diagnostic findings, will reevaluate in the a.m. Time spent on this followup including assessment, plan, physical examination, patient education, review of records is 35 minutes. DICTATING PHYSICIAN: EVANGELINA BARBOSA NP [id number] PHY#: [id number] ID: [id number] JOB#: [id number] ACCT: [id number] cc: > MTDD
--- NOTE | 2018-05-25 13:46 | RADIOLOGY REPORT (SQ) ---
EXAM DESCRIPTION: CHEST 2 VIEWS COMPLETED DATE/TIME: 05/25/2018 1:31 pm REASON FOR STUDY: FU effusions COMPARISON: 05/23/2018. EXAM PARAMETERS: NUMBER OF VIEWS: two views TECHNIQUE: Digital Frontal and Lateral radiographic views of the chest acquired. RADIATION DOSE: NA LIMITATIONS: none FINDINGS: LUNGS AND PLEURA: No opacities, masses or pneumothorax. Bilateral pleural effusions. MEDIASTINUM AND HILAR STRUCTURES: No masses or contour abnormalities. HEART AND VASCULAR STRUCTURES: Heart normal size. No evidence for failure. BONES: No acute findings. HARDWARE: None in the chest. OTHER: No other significant finding. IMPRESSION: BILATERAL PLEURAL EFFUSIONS. NO SIGNIFICANT CHANGE. TECHNICAL DOCUMENTATION: JOB ID: [id number] [employer]- All Rights Reserved Reading location - IP/workstation name: [email or web address]
[2018-05-25 14:34] LABS: APPEARANCE,URINE CLEAR; BILIRUBIN,URINE NEGATIVE (NEGATIVE); COLOR,URINE YELLOW; GLUCOSE, URINE NEGATIVE (NEGATIVE); KETONES,URINE NEGATIVE (NEGATIVE); LEUKOCYTE ESTERASE,URINE SMALL (NEGATIVE); NITRITE,URINE NEGATIVE (NEGATIVE); PROTEIN,URINE 100 mg/dL (NEGATIVE); URINE SPECIFIC GRAVITY 1.006; UROBILINOGEN,URINE NEGATIVE mg/dL (<2.0)
[2018-05-25 14:52] LABS: ANION GAP 10 (5-19); BLOOD UREA NITROGEN 35 mg/dL (7-20); CALCIUM 8.6 mg/dL (8.4-10.2); CARBON DIOXIDE 27 mmol/L (22-30); CHLORIDE 90 mmol/L (98-107); GLUCOSE 162 mg/dL (75-110); POTASSIUM 4.3 mmol/L (3.6-5.0); SODIUM 126.9 mmol/L (137-145)
[2018-05-25] MEDS: ONDANSETRON 4 MG TAB.RAPDIS PO PRN (17:38)
[2018-05-25] MEDS ORDERED: (PENDING PHARMACY ID) (Alendronate Sodium [Fosamax] 70 MG) PO SCH (18:00)
[2018-05-25] MEDS: ATORVASTATIN CALCIUM 40 MG TABLET PO SCH (22:29)
[2018-05-26] MEDS: METOCLOPRAMIDE HCL INJ/PF 10 MG/2 ML SDV IV SCH (06:39)
[2018-05-26] MEDS: HEPARIN SOD (PORCINE) 5,000 UNIT/ML 1 ML SYRINGE SUBCUT SCH ×3 (06:39→21:58)
[2018-05-26] MEDS: GABAPENTIN 300 MG CAPSULE PO SCH ×3 (06:40→21:58)
[2018-05-26] MEDS: HYDROCODONE/ACETAMINOPHEN 10-325 MG TABLET PO SCH ×4 (06:40→23:54)
[2018-05-26] MEDS: AMLODIPINE BESYLATE 5 MG TABLET PO SCH ×2 (06:40→17:15)
[2018-05-26] MEDS: HYDRALAZINE HCL 25 MG TABLET PO SCH ×3 (06:41→21:58)
[2018-05-26 08:56] LABS: ANION GAP 8 (5-19); BLOOD UREA NITROGEN 38 mg/dL (7-20); CALCIUM 8.6 mg/dL (8.4-10.2); CARBON DIOXIDE 28 mmol/L (22-30); CHLORIDE 92 mmol/L (98-107); GLUCOSE 107 mg/dL (75-110)
[2018-05-26] MEDS: FUROSEMIDE 20 MG TABLET PO SCH ×2 (09:31→17:15)
[2018-05-26] MEDS: ASPIRIN 81 MG TABLET, ENT COATED PO SCH (09:32)
[2018-05-26] MEDS: INSULIN GLARGINE,HUM.REC.ANLOG 1,000 UNIT/10 ML UNIT SUBCUT SCH (09:32)
[2018-05-26] MEDS: FAMOTIDINE 20 MG TABLET PO SCH ×2 (09:32→21:58)
[2018-05-26] MEDS: NEBIVOLOL HCL 10 MG TABLET PO SCH (10:34)
[2018-05-26] MEDS: METOCLOPRAMIDE HCL 10 MG TABLET PO SCH ×3 (12:06→21:58)
[2018-05-26] MEDS: ATORVASTATIN CALCIUM 40 MG TABLET PO SCH (21:58)
[2018-05-26] MEDS: ACETAMINOPHEN 325 MG TABLET PO PRN (23:59)
[2018-05-27] MEDS: AMLODIPINE BESYLATE 5 MG TABLET PO SCH (05:23)
[2018-05-27] MEDS: HYDROCODONE/ACETAMINOPHEN 10-325 MG TABLET PO SCH ×2 (05:23→12:22)
[2018-05-27] MEDS: HEPARIN SOD (PORCINE) 5,000 UNIT/ML 1 ML SYRINGE SUBCUT SCH (05:23)
[2018-05-27] MEDS: HYDRALAZINE HCL 25 MG TABLET PO SCH (05:25)
[2018-05-27] MEDS: GABAPENTIN 300 MG CAPSULE PO SCH (05:25)
[2018-05-27] MEDS: ONDANSETRON 4 MG TAB.RAPDIS PO PRN (06:52)
--- NOTE | 2018-05-27 07:38 | EKG REPORT ---
SEVERITY:- ABNORMAL ECG - SINUS RHYTHM FIRST DEGREE AV BLOCK ANTERIOR INFARCT, AGE INDETERMINATE , OLD : Confirmed by: Tristin Posey MD 27-May-2018 07:38:05
[2018-05-27] MEDS: METOCLOPRAMIDE HCL 10 MG TABLET PO SCH ×2 (08:08→10:44)
[2018-05-27] MEDS: INSULIN LISPRO 100 UNIT/ML 3 ML VIAL SUBCUT PRN (08:09)
[2018-05-27] MEDS ORDERED: LISINOPRIL 10 MG TABLET PO SCH (10:00)
[2018-05-27] MEDS: NEBIVOLOL HCL 10 MG TABLET PO SCH (10:43)
[2018-05-27] MEDS: FUROSEMIDE 20 MG TABLET PO SCH (10:43)
[2018-05-27] MEDS: ASPIRIN 81 MG TABLET, ENT COATED PO SCH (10:44)
[2018-05-27] MEDS: FAMOTIDINE 20 MG TABLET PO SCH (10:44)
[2018-05-27] MEDS: INSULIN GLARGINE,HUM.REC.ANLOG 1,000 UNIT/10 ML UNIT SUBCUT SCH (10:46)
--- NOTE | 2018-05-27 11:10 | PDOC DISCHARGE SUMMARY ---
General - Admit/Disc Date/PCP Admission Date/Primary Care Provider: 05/10/18 05:14 AJITH JONES MD Discharge Date: 05/27/18 - Discharge Diagnosis (1) Acute kidney injury Is this a current diagnosis for this admission?: Yes (2) Acute on chronic diastolic (congestive) heart failure Is this a current diagnosis for this admission?: Yes (3) Acute respiratory failure Is this a current diagnosis for this admission?: Yes (4) Aortic incompetence Is this a current diagnosis for this admission?: Yes (5) Bilateral pleural effusion Is this a current diagnosis for this admission?: Yes (7) Diabetes Is this a current diagnosis for this admission?: Yes (8) Hypertensive urgency Is this a current diagnosis for this admission?: Yes (9) Mitral regurgitation Is this a current diagnosis for this admission?: Yes - Additional Information Resuscitation Status: Full Code Discharge Diet: Cardiac, Diabetic Discharge Activity: Activity As Tolerated, Balance Activity w/Rest, Weigh Daily Prescriptions: Amlodipine Besylate [Norvasc 5 mg Tablet] 5 mg PO DAILY #30 tablet Furosemide [Lasix 20 mg Tablet] 20 mg PO BID 60 Days tablet Hydralazine HCl [Apresoline 25 mg Tablet] 25 mg PO Q8 #90 tablet Home Medications: Aspirin [Adult Low Dose Aspirin EC] 81 mg PO DAILY 05/10/18 Atorvastatin Calcium [Lipitor 40 mg Tablet] 40 mg PO QHS 05/10/18 Diltiazem HCl [Cardizem 60 mg Tablet] 60 mg PO BID 05/10/18 Gabapentin [Neurontin 300 mg Capsule] 300 mg PO Q8 05/10/18 Hydrocodone/Acetaminophen [[place] 10-325 mg Tablet] 1 tab PO Q6 05/10/18 Insulin Glargine,Hum.rec.anlog [Lantus Solostar] 40 units SQ QHS 05/10/18 Insulin Lispro [Humalog Insulin (Lispro) 100 unit/mL] 7 units SQ AC 05/10/18 Ipratropium [place] [Atrovent 0.06% Nasal [place]] 1 spray NASL QIDP PRN 05/10/18 Lisinopril [Zestril] 40 mg PO DAILY 05/10/18 Nebivolol HCl [Bystolic] 20 mg PO DAILY 05/10/18 Ondansetron HCl [Zofran 4 mg Tablet] 4 mg PO Q6HP PRN 05/10/18 Alendronate Sodium [Fosamax] 70 mg PO ASDIR PRN 05/25/18 Amlodipine Besylate [Norvasc 5 mg Tablet] 5 mg PO DAILY #30 tablet 05/27/18 Furosemide [Lasix 20 mg Tablet] 20 mg PO BID 60 Days tablet 05/27/18 Hydralazine HCl [Apresoline 25 mg Tablet] 25 mg PO Q8 #90 tablet 05/27/18 History of Present Illness History of Present Illness: JASMIN MURDOCK is a 58 year old female with chronic diastolic CHF as per last echocardiogram on November 2017. Comes to the emergency department complaining of shortness of breath that is started at 3 in the morning 1 day ago, associated with wheezing, cough with clear sputum, chest tightness. For than a week she is having progressive lower extremities edema and her weight has increased 27 pounds in less than 2 weeks. She feels that her swelling goes up to her abdomen with tightness. Her risk developer is Dr. Mcclendon and last her Lasix was increased from 60 mg twice a day to 80 mg twice a day unsuccessfully. Denies fever, chills, nausea, vomiting. In the emergency department given 40 mg of IV Lasix. Blood pressure 190/115. Initial oxygen saturation 89%, patient was initiated on BiPAP. Hospital Course Hospital Course: Patient was admitted to the hospitalist service and received cardiology consultation. She had an echocardiogram that shows normal EF and aortic incompetence and mitral regurgitation. Patient received diuresis and renal function worsened. Medications were adjusted and renal function improved as well as her high blood pressure. She developed hyponatremia which is also improved. Hydrochlorothiazide was discontinued. She is stable. Today she was actually taken a shower by herself and she looks completely normal. She should follow-up with primary care physician and cardiology of the discharge. She was given prescriptions of the new medications. Physical Exam Vital Signs: Temp Pulse Resp BP Pulse Ox 97.4 F 70 16 161/64 H 96 05/27/18 07:32 05/27/18 07:32 05/27/18 07:32 05/27/18 07:32 05/27/18 07:32 Intake & Output 05/26/18 05/27/18 05/28/18 06:59 06:59 06:59 Intake Total 1040 1240 Output Total 3150 1999 Balance -2110 -760 Weight 138 lb 14.259 oz 147 lb 0.773 oz General appearance: PRESENT: no acute distress, cooperative Head exam: PRESENT: atraumatic Eye exam: ABSENT: conjunctival injection Throat exam: ABSENT: post pharyngeal erythema Neck exam: ABSENT: meningismus, tenderness, thyromegaly Respiratory exam: PRESENT: clear to auscultation joshua. ABSENT: accessory muscle use Cardiovascular exam: PRESENT: RRR Pulses: PRESENT: normal radial pulses GI/Abdominal exam: PRESENT: normal bowel sounds. ABSENT: ascites, tenderness Extremities exam: ABSENT: pedal edema Neurological exam: PRESENT: alert, altered, awake, oriented to person, oriented to place, oriented to time, oriented to situation Psychiatric exam: PRESENT: appropriate affect. ABSENT: agitated, anxious, flat affect Skin exam: ABSENT: abrasion, cyanosis, erythema, jaundice Results Laboratory Results: 05/25/18 05:55 05/26/18 07:53 05/10/18 05/10/18 05/10/18 09:38 15:25 21:30 Troponin I < 0.012 < 0.012 < 0.012 NT-Pro-B Natriuret Pep 05/12/18 05/13/18 05/19/18 12:53 15:55 05:22 Troponin I NT-Pro-B Natriuret Pep 3300 H 3280 H 1780 H 05/22/18 05/24/18 05/24/18 05:54 04:58 04:58 Troponin I < 0.012 NT-Pro-B Natriuret Pep 1090 H 1510 H 05/24/18 11:38 Troponin I < 0.012 NT-Pro-B Natriuret Pep Impressions: Renal Ultrasound 05/12/18 00:00 IMPRESSION: NORMAL RENAL AND BLADDER ULTRASOUND. Venous Doppler Study 05/13/18 00:00 IMPRESSION: NO EVIDENCE DVT OR SVT IN EITHER LEG. Renal Artery Duplex 05/13/18 10:20 IMPRESSION: NO DOPPLER EVIDENCE OF HEMODYNAMICALLY SIGNIFICANT RENAL ARTERY STENOSIS. Chest CT 05/15/18 00:00 IMPRESSION: Findings most likely related to vascular congestion and interstitial pulmonary edema. Bilateral pleural effusions. Likely pneumonia at the left base. No findings to support pulmonary fibrosis. Chest X-Ray 05/25/18 00:00 IMPRESSION: BILATERAL PLEURAL EFFUSIONS. NO SIGNIFICANT CHANGE. Qualifiers - * PATIENT BEING DISCHARGED WITH ANY OF THE FOLLOWING DIAGNOSIS: Heart Failure HF Pt being discharged on ACEI for LVEF less than 40%?: Yes HF Pt being discharged on ARBS for LVEF less than 40%?: No Reason(s) for not prescribing ARBS:: Not indicated HF Pt with Afib discharged with Warfarin?: No Reason(s) for not prescribing Warfarin:: Not indicated HF Pt discharged on evidence-based Beta Pauline:: Yes
[2018-05-27] MEDS ORDERED: ONDANSETRON 4 MG TAB.RAPDIS PO ONE (12:00)
[2018-05-27 12:23] VITALS: BP 166/58
== END 2018-05-27 13:13 | disposition home health service (06) | DRG 291 ==
LOC: ER 18:50 → EH 05-10 05:14 → 4S 05-10 13:06
PROVIDERS: ADMIT Internal Medicine; ATTEND Internal Medicine
PROC: 5A09457 Assistance with Respiratory Ventilation, 24-96 Consecutive Hours, Continuous Positive Airway Pressure (ICD-10-PCS; principal; 2018-05-10)
DX: I11.0 Hypertensive heart disease with heart failure (principal); J96.01 Acute respiratory failure with hypoxia; N17.9 Acute kidney failure, unspecified; E87.1 Hypo-osmolality and hyponatremia; E87.3 Alkalosis; N04.9 Nephrotic syndrome with unspecified morphologic changes; I50.33 Acute on chronic diastolic (congestive) heart failure; E11.649 Type 2 diabetes mellitus with hypoglycemia without coma; E11.21 Type 2 diabetes mellitus with diabetic nephropathy; I08.0 Rheumatic disorders of both mitral and aortic valves; R80.8 Other proteinuria; I16.0 Hypertensive urgency; K21.9 Gastro-esophageal reflux disease without esophagitis; R01.1 Cardiac murmur, unspecified; D64.9 Anemia, unspecified; E78.5 Hyperlipidemia, unspecified; Z90.49 Acquired absence of other specified parts of digestive tract; Z82.49 Family history of ischemic heart disease and other diseases of the circulatory system; Z79.899 Other long term (current) drug therapy; Z79.82 Long term (current) use of aspirin
CPT/HCPCS: 36415; 71045; 71046; 71250; 76770; 80048; 80053; 80061; 80307; 81001; 82040; 82150; 82550; 82553; 82607; 82728; 82746; 82962; 82977; 83036; 83540; 83550; 83690; 83735; 83880; 83930; 83935; 84100; 84156; 84300; 84443; 84481; 84484; 85025; 85027; 85045; 85379; 86140; 86225; 86235; 86430; 87086; 93005; 93010; 93306; 93970; 93975; 94660; 96374; 99291; J0360; J1644; J1815; J1885; J1940; J2270; J2550; J2765; J3490; S0119

== ENCOUNTER 2018-09-03 11:52 | Inpatient (IN) | payer OTHER ==
[2018-09-03] MEDS ORDERED: PROPOFOL INJ 200 MG/20 ML VIAL IV ONE (12:13)
[2018-09-03 12:43] LABS: ANION GAP 13 (5-19); BLOOD UREA NITROGEN 36 mg/dL (7-20); CALCIUM 8.9 mg/dL (8.4-10.2); CARBON DIOXIDE 25 mmol/L (22-30); CHLORIDE 82 mmol/L (98-107); GLUCOSE 131 mg/dL (75-110); POTASSIUM 4.2 mmol/L (3.6-5.0)
[2018-09-03 13:01] LABS: SODIUM 120.2 mmol/L (137-145)
--- NOTE | 2018-09-03 14:20 | PDOC CONSULTATION ---
Consultation Consult Date: 09/03/18 Attending physician:: MARTHA JOLLY Consult reason:: nausea and vomiting. change in bowel habits History of Present Illness Admission Date/PCP: AJITH JONES MD History of Present Illness: JASMIN MURDOCK is a 58 year old female patient was scheduled for outpatient procedures for chronic nausea and vomiting she also had a change in her bowel habits patient was admitted thru [facility] and the process of work up noted to have hyponatremia patient also has elevated BP has a CHF in the past along with previous cardiac work up not able to sedate for procedure at this time along with Anesthesia, patient needs to be admitted for tuning up of her electrolytes prior to procedure Hospitalist is going to admit her patient can be kep on clear liquids until appropriate for procedure Past Medical History Cardiac Medical History: Reports: Myocardial Infarction - CHF, AORTIC VALVE REGURG, MITRAL VALVE REGURG, Hypertension, Heart Murmur Denies: Atrial Fibrillation, Coronary Artery Disease Pulmonary Medical History: Denies: Asthma, Bronchitis, Chronic Obstructive Pulmonary Disease (COPD), Pneumonia Neurological Medical History: Denies: Seizures Endocrine Medical History: Reports: Diabetes Mellitus Type 2 GI Medical History: Reports: Gastroesophageal Reflux Disease Musculoskeltal Medical History: Reports: Arthritis - BACK Hematology: Reports: Anemia Past Surgical History Past Surgical History: Reports: Cholecystectomy, Orthopedic Surgery - back x3, Tonsillectomy, Tubal Ligation Social History Smoking Status: Former Smoker Frequency of Alcohol Use: None Hx Recreational Drug Use: No Drugs: None Hx Prescription Drug Abuse: No - Advance Directive Resuscitation Status: Full Code Family History Family History: CAD, Hypertension Parental Family History Reviewed: Yes Children Family History Reviewed: Unknown Sibling(s) Family History Reviewed.: Unknown Medication/Allergy Home Medications: Aspirin [Adult Low Dose Aspirin EC] 81 mg PO DAILY 05/10/18 Atorvastatin Calcium [Lipitor 40 mg Tablet] 40 mg PO QHS 05/10/18 Gabapentin [Neurontin 300 mg Capsule] 300 mg PO TID 05/10/18 Hydrocodone/Acetaminophen [[place] 10-325 mg Tablet] 1 tab PO Q6 PRN 05/10/18 Insulin Glargine,Hum.rec.anlog [Lantus Solostar] 8 units SQ QHS 05/10/18 Ipratropium [place] [Atrovent 0.06% Nasal [place]] 1 spray NASL QIDP PRN 05/10/18 Lisinopril [Zestril] 40 mg PO DAILY 05/10/18 Nebivolol HCl [Bystolic] 20 mg PO DAILY 05/10/18 Ondansetron HCl [Zofran 4 mg Tablet] 4 mg PO Q6HP PRN 05/10/18 Alendronate Sodium [Fosamax] 70 mg PO ASDIR PRN 05/25/18 Amlodipine Besylate [Norvasc 5 mg Tablet] 5 mg PO DAILY #30 tablet 05/27/18 Bumetanide [Bumex 2 mg Tablet] 1 mg PO BID 09/02/18 Hydralazine HCl [Apresoline 25 mg Tablet] 3 tab PO TID 09/02/18 Insulin Lispro [Humalog Insulin 100 Unit/1 ml 3 ml Vial] 0 unit SUBCUT .SLD SCALE 09/02/18 Omeprazole 40 mg PO DAILY 09/02/18 Spironolactone 25 mg PO DAILY 09/02/18 Isosorbide Dinitrate [Isosorbide Dinitrate ER] 40 mg PO DAILY 09/03/18 Allergies/Adverse Reactions: metaxalone [From Skelaxin] Allergy (Intermediate, Verified 09/03/18 12:13) Hives metformin Allergy (Intermediate, Verified 09/03/18 12:13) MUSCLE PAIN Review of Systems Constitutional: PRESENT: weakness. ABSENT: fever(s), headache(s), night sweats Eyes: ABSENT: visual disturbances Ears: ABSENT: hearing changes Nose, Mouth, and Throat: ABSENT: mouth pain Cardiovascular: PRESENT: edema, orthropnea Respiratory: ABSENT: hemoptysis Gastrointestinal: PRESENT: nausea, vomiting. ABSENT: dysphagia, melena Genitourinary: ABSENT: dysuria, hematuria Integumentary: ABSENT: lesions, pruritus Neurological: ABSENT: syncope, tingling, tremor(s), vertigo Endocrine: ABSENT: polydipsia, polyphagia, polyuria Hematologic/Lymphatic: ABSENT: easy bruising Physical Exam Vital Signs: Temp Pulse Resp BP Pulse Ox 97.6 F 86 18 165/63 H 99 09/03/18 12:05 09/03/18 12:05 09/03/18 12:05 09/03/18 12:05 09/03/18 12:05 Intake & Output 09/02/18 09/03/18 09/04/18 06:59 06:59 06:59 Intake Total 250 Balance 250 Weight 61.69 kg 61.69 kg General appearance: PRESENT: no acute distress, thin Head exam: PRESENT: atraumatic, normocephalic Eye exam: PRESENT: EOMI, PERRLA. ABSENT: nystagmus, periorbital swelling, scleral icterus Mouth exam: PRESENT: moist. ABSENT: neck supple Throat exam: ABSENT: tonsillar exudate, tonsillogmegaly Neck exam: ABSENT: meningismus, tenderness, thyromegaly Respiratory exam: PRESENT: symmetrical. ABSENT: tachypnea, wheezes Cardiovascular exam: PRESENT: RRR, +S1, +S2 GI/Abdominal exam: PRESENT: soft. ABSENT: rebound, rigid, tenderness Extremities exam: ABSENT: joint swelling Musculoskeletal exam: PRESENT: full ROM Neurological exam: PRESENT: oriented to time, oriented to situation, CN II-XII grossly intact Focused psych exam: ABSENT: restlessness Skin exam: PRESENT: normal color. ABSENT: mottled, pallor, urticaria, vesicles Results Laboratory Results: 09/03/18 13:20 09/03/18 09/03/18 12:03 13:20 Sodium 120.2 L* 119.2 L* Potassium 4.2 Chloride 82 L Carbon Dioxide 25 Anion Gap 13 BUN 36 H Creatinine 0.98 Est GFR ( Amer) > 60 Est GFR (Non-Af Amer) 59 L Glucose 131 H Calcium 8.9 Assessment & Plan - Diagnosis (1) Hyponatremia Plan: will need admission and correction of her electrolytes not able to proceed with sedation until sodium has been corrected patient can be kept on clears for now once corrected, will perform procedures prior to discharge (2) Nausea and vomiting Plan: has had cholecystectomy antiemetic and PPI for now (3) Change in bowel habits Plan: will need colonoscopy at some point once electrolytes better, will proceed keep on clears until then hospitalist aware , anesthesia has alerted to them to the pending admission - Time Time Spent: 50 to 70 Minutes
[2018-09-03] MEDS ORDERED: NORMAL SALINE 1000 ML 1,000 ML IV PRN ×2 (16:32→20:46)
[2018-09-03] MEDS ORDERED: (PENDING PHARMACY ID) (Ondansetron Hcl [Zofran 4 Mg Tablet] 4 MG) PO PRN (16:38)
[2018-09-03] MEDS ORDERED: DEXTROSE 50%-WATER 25 GM/50 ML DISP.SYRIN IV PRN ×2 (16:42)
[2018-09-03] MEDS ORDERED: GLUCAGON,HUMAN RECOMB 1 MG INJ IM PRN (16:42)
[2018-09-03] MEDS ORDERED: DEXTROSE 40% GEL 15 GM TUBE PO PRN ×2 (16:42)
[2018-09-03] MEDS: HYDROCODONE/ACETAMINOPHEN 10-325 MG TABLET PO PRN (17:58)
[2018-09-03] MEDS ORDERED: GABAPENTIN 300 MG CAPSULE PO SCH (18:00)
[2018-09-03] MEDS ORDERED: HYDRALAZINE HCL 25 MG TABLET PO SCH (18:00)
--- NOTE | 2018-09-03 19:17 | PDOC H&P ---
History of Present Illness Admission Date/PCP: 09/03/18 16:56 AJITH JONES MD Patient complains of: Intractable nausea and vomiting, feeling cold all the time and hyponatremia History of Present Illness: JASMIN MURDOCK is a 58 year old female who was going to undergo endoscopy today. She was having a colonoscopy and gastroduodenoscopy for intractable vomiting with chronic nausea. She has been suffering with this condition for many months. Her appetite is decreased. Believe she has lost weight. She has been feeling quite poorly in general. Starting last evening she began to feel cold to the point where she is unable to get warm. Preoperative blood work revealed a sodium of 120. He was called to admit the patient. Past Medical History Cardiac Medical History: Reports: Congestive Heart Failure, Hypertension, Heart Murmur, Other - Valvular heart disease Denies: Atrial Fibrillation, Coronary Artery Disease, Myocardial Infarction - CHF, AORTIC VALVE REGURG, MITRAL VALVE REGURG Pulmonary Medical History: Denies: Asthma, Bronchitis, Chronic Obstructive Pulmonary Disease (COPD), Pneumonia EENT Medical History: Reports: Ears - Several ear operations. Denies: Eyes, Nose, Throat Neurological Medical History: Denies: Hemorrhagic CVA, Ischemic CVA, Seizures Endocrine Medical History: Reports: Diabetes Mellitus Type 2 Renal/ Medical History: Reports: Chronic Kidney Disease GI Medical History: Reports: Gastroesophageal Reflux Disease, Other - As above Musculoskeltal Medical History: Reports: Arthritis - BACK Skin Medical History: Reports: None Psychiatric Medical History: Denies: Depression Hematology: Reports: Anemia Past Surgical History Past Surgical History: Reports: Cholecystectomy, Orthopedic Surgery - back x3, Tonsillectomy, Other - Ears Social History Lives with: Alone Smoking Status: Former Smoker Frequency of Alcohol Use: None Hx Recreational Drug Use: No Drugs: None Hx Prescription Drug Abuse: No - Advance Directive Resuscitation Status: Full Code Family History Family History: CAD, Hypertension Parental Family History Reviewed: Yes - Fibromyalgia, congestive heart failure Children Family History Reviewed: Yes Sibling(s) Family History Reviewed.: Yes - Sister with diabetes Medication/Allergy Home Medications: Aspirin [Adult Low Dose Aspirin EC] 81 mg PO DAILY 05/10/18 Atorvastatin Calcium [Lipitor 40 mg Tablet] 40 mg PO QHS 05/10/18 Gabapentin [Neurontin 300 mg Capsule] 300 mg PO TID 05/10/18 Hydrocodone/Acetaminophen [[place] 10-325 mg Tablet] 1 tab PO Q6 PRN 05/10/18 Insulin Glargine,Hum.rec.anlog [Lantus Solostar] 8 units SQ QHS 05/10/18 Ipratropium [place] [Atrovent 0.06% Nasal [place]] 1 spray NASL QIDP PRN 05/10/18 Lisinopril [Zestril] 40 mg PO DAILY 05/10/18 Nebivolol HCl [Bystolic] 20 mg PO DAILY 05/10/18 Ondansetron HCl [Zofran 4 mg Tablet] 4 mg PO Q6HP PRN 05/10/18 Alendronate Sodium [Fosamax] 70 mg PO ASDIR PRN 05/25/18 Amlodipine Besylate [Norvasc 5 mg Tablet] 5 mg PO DAILY #30 tablet 05/27/18 Bumetanide [Bumex 2 mg Tablet] 1 mg PO BID 09/02/18 Hydralazine HCl [Apresoline 25 mg Tablet] 3 tab PO TID 09/02/18 Insulin Lispro [Humalog Insulin 100 Unit/1 ml 3 ml Vial] 0 unit SUBCUT .SLD SCALE 09/02/18 Omeprazole 40 mg PO DAILY 09/02/18 Spironolactone 25 mg PO DAILY 09/02/18 Isosorbide Dinitrate [Isosorbide Dinitrate ER] 40 mg PO DAILY 09/03/18 Allergies/Adverse Reactions: metaxalone [From Skelaxin] Allergy (Intermediate, Verified 09/03/18 12:13) Hives metformin Allergy (Intermediate, Verified 09/03/18 12:13) MUSCLE PAIN Review of Systems Constitutional: PRESENT: as per HPI, chills, weakness Eyes: ABSENT: visual disturbances Ears: ABSENT: hearing changes Nose, Mouth, and Throat: ABSENT: headache(s), mouth pain, sore throat Cardiovascular: ABSENT: chest pain, dyspnea on exertion, palpitations Respiratory: ABSENT: cough, dyspnea Gastrointestinal: PRESENT: abdominal pain, nausea, vomiting Genitourinary: ABSENT: dysuria, hematuria Musculoskeletal: PRESENT: back pain Integumentary: ABSENT: rash, wounds Neurological: ABSENT: abnormal gait, confusion, focal weakness, memory loss Psychiatric: PRESENT: anxiety Endocrine: PRESENT: cold intolerance Hematologic/Lymphatic: ABSENT: easy bleeding, easy bruising Physical Exam Vital Signs: Temp Pulse Resp BP Pulse Ox 98.4 F 90 17 155/63 H 96 09/03/18 17:32 09/03/18 17:32 09/03/18 17:32 09/03/18 17:32 09/03/18 17:32 Intake & Output 09/02/18 09/03/18 09/04/18 06:59 06:59 06:59 Intake Total 250 Balance 250 Weight 61.69 kg 77.1 kg General appearance: PRESENT: cooperative, mild distress, thin, well-developed Head exam: PRESENT: atraumatic, normocephalic Eye exam: PRESENT: conjunctiva pink, EOMI. ABSENT: scleral icterus Ear exam: PRESENT: normal external ear exam Mouth exam: PRESENT: dry mucosa, tongue midline Neck exam: ABSENT: carotid bruit, JVD, lymphadenopathy Respiratory exam: PRESENT: clear to auscultation joshua, symmetrical, unlabored. ABSENT: rales, rhonchi, wheezes Cardiovascular exam: PRESENT: RRR, +S1, +S2, systolic murmur - 3/6 GI/Abdominal exam: PRESENT: normal bowel sounds, soft, tenderness - Mild diffuse. ABSENT: distended, guarding Extremities exam: ABSENT: calf tenderness, pedal edema Musculoskeletal exam: PRESENT: normal inspection Neurological exam: PRESENT: alert, awake, oriented to person, oriented to place , oriented to time, oriented to situation, CN II-XII grossly intact Psychiatric exam: PRESENT: appropriate affect - Reflects her current clinical state Results Laboratory Results: 09/03/18 13:20 09/03/18 09/03/18 12:03 13:20 Sodium 120.2 L* 119.2 L* Potassium 4.2 Chloride 82 L Carbon Dioxide 25 Anion Gap 13 BUN 36 H Creatinine 0.98 Est GFR ( Amer) > 60 Est GFR (Non-Af Amer) 59 L Glucose 131 H Calcium 8.9 Assessment & Plan - Diagnosis (1) Hyponatremia Is this a current diagnosis for this admission?: Yes Plan: I did review of the patient's blood work. She has had hyponatremia with serum sodium less than 130 for several months. This is not actually a new finding. She is more symptomatic and her serum sodium is now at 120 which is the lowest it has been since this problem started. It is unknown the exact etiology. She does have a email campaign specialist that she sees. Could be related to her chronic kidney disease. Could be related to her most recent GI issues. I will check urine studies and put her on a fluid restriction. She will have normal saline at 75 mL an hour with every 6 hours electrolyte checks so as not to overcorrect or correct her sodium too quickly. (2) Nausea and vomiting Qualifiers: Vomiting type: bilious vomiting Qualified Code(s): R11.14 - Bilious vomiting Is this a current diagnosis for this admission?: Yes Plan: As noted above this is been an issue for the patient for many weeks. She will still need the gastroscopy and colonoscopy. This can occur when she is stable. (3) Diabetes mellitus Qualifiers: Diabetes mellitus type: type 2 Diabetes mellitus mcc insulin use: with mcc use Diabetes mellitus complication detail: with nephropathy Is this a current diagnosis for this admission?: Yes Plan: No continue the patient's current regimen with insulin. She will also be on a sliding scale and a carbohydrate consistent diet. (4) Chronic congestive heart failure Qualifiers: Heart failure type: unspecified Qualified Code(s): I50.9 - Heart failure, unspecified Is this a current diagnosis for this admission?: Yes Plan: Continue current regimen. She is currently asymptomatic for congestive heart failure. - Time Time Spent: Greater than 70 Minutes Medications reviewed and adjusted accordingly: Yes - Inpatient Certification Based on my medical assessment, after consideration of the patient's comorbidities, presenting symptoms, or acuity I expect that the services needed warrant INPATIENT care.: Yes I certify that my determination is in accordance with my understanding of Medicare's requirements for reasonable and necessary INPATIENT services [42 CFR 412.3e].: Yes Medical Necessity: Failure to Improve With Outpatient Therapy, Need For IV Fluids, Need For Continuous Telemetry Monitoring
[2018-09-03 19:53] LABS: ANION GAP 11 (5-19); BLOOD UREA NITROGEN 36 mg/dL (7-20); CALCIUM 8.4 mg/dL (8.4-10.2); CARBON DIOXIDE 25 mmol/L (22-30); CHLORIDE 84 mmol/L (98-107); GLUCOSE 106 mg/dL (75-110)
[2018-09-03 20:05] LABS: SODIUM 120.4 mmol/L (137-145)
--- NOTE | 2018-09-03 20:09 | EKG REPORT ---
SEVERITY:- ABNORMAL ECG - SINUS RHYTHM VENTRICULAR PREMATURE COMPLEX FIRST DEGREE AV BLOCK CONSIDER ANTEROSEPTAL INFARCT : Confirmed by: Candis Schofield 03-Sep-2018 20:08:49
[2018-09-03] MEDS: HYDRALAZINE HCL 50 MG TABLET PO SCH (21:46)
[2018-09-03] MEDS: GABAPENTIN 300 MG CAPSULE PO SCH (21:47)
[2018-09-03] MEDS: INSULIN GLARGINE,HUM.REC.ANLOG 300 UNIT/3 ML INSULN.PEN SUBCUT SCH (21:54)
[2018-09-03] MEDS: ATORVASTATIN CALCIUM 40 MG TABLET PO SCH (21:56)
[2018-09-03 22:46] LABS: APPEARANCE,URINE CLOUDY; BILIRUBIN,URINE NEGATIVE (NEGATIVE); COLOR,URINE YELLOW; GLUCOSE, URINE 50 mg/dL (NEGATIVE); KETONES,URINE NEGATIVE (NEGATIVE); LEUKOCYTE ESTERASE,URINE TRACE (NEGATIVE); NITRITE,URINE NEGATIVE (NEGATIVE); PROTEIN,URINE >=500 mg/dL (NEGATIVE); URINE SPECIFIC GRAVITY 1.012; UROBILINOGEN,URINE NEGATIVE mg/dL (<2.0)
[2018-09-03 22:58] LABS: URINE CREATININE 85.2 mg/dL (15-278); URINE POTASSIUM 21.8 mmol/L (22-164); URINE SODIUM 13 mmol/L (30-90)
[2018-09-03 23:14] LABS: UR PRO/CREAT RATIO RESULT 9.5 mg/mg (0.0-0.2); URINE PROTEIN 805.7 mg/dL (<12)
[2018-09-04] MEDS: ONDANSETRON 4 MG TAB.RAPDIS PO PRN (00:05)
[2018-09-04] MEDS: HYDROCODONE/ACETAMINOPHEN 10-325 MG TABLET PO PRN ×2 (00:06→11:31)
[2018-09-04 01:28] LABS: ANION GAP 11 (5-19); BLOOD UREA NITROGEN 35 mg/dL (7-20); CALCIUM 8.3 mg/dL (8.4-10.2); CARBON DIOXIDE 24 mmol/L (22-30); CHLORIDE 85 mmol/L (98-107); GLUCOSE 135 mg/dL (75-110); POTASSIUM 3.9 mmol/L (3.6-5.0)
[2018-09-04 01:38] LABS: SODIUM 120.3 mmol/L (137-145)
[2018-09-04] MEDS: HYDRALAZINE HCL 50 MG TABLET PO SCH ×2 (05:42→14:40)
[2018-09-04] MEDS: GABAPENTIN 300 MG CAPSULE PO SCH ×3 (05:44→21:54)
[2018-09-04] MEDS: LANSOPRAZOLE 30 MG TAB.RAP.DR PO SCH (05:44)
[2018-09-04 06:15] LABS: ABSOLUTE LYMPHOCYTES (AUTO) 1.2 10^3/uL (0.5-4.7); ABSOLUTE MONOCYTES (AUTO) 0.5 10^3/uL (0.1-1.4); ABSOLUTE NEUT (AUTO) 3.4 10^3/uL (1.7-8.2); BASOPHILS % (AUTO) 0.4 % (0-2); EOSINOPHILS % (AUTO) 0.9 % (0-6); HEMATOCRIT 24.2 % (36.0-47.0); HEMOGLOBIN 8.8 g/dL (12.0-15.5); LYMPHOCYTES % (AUTO) 23.2 % (13-45); MEAN CORPUSCULAR HEMOGLOBIN 27.3 pg (27.0-33.4); MEAN CORPUSCULAR HGB CONC 36.3 g/dL (32.0-36.0); MEAN CORPUSCULAR VOLUME 75 fl (80-97); MONOCYTES % (AUTO) 10.3 % (3-13); PLATELET COUNT 151 10^3/uL (150-450); RED BLOOD COUNT 3.22 10^6/uL (3.72-5.28); RED CELL DISTRIBUTION WIDTH 14.8 % (11.5-14.0); SEGMENTED NEUTROPHILS % (AUTO) 65.2 % (42-78); TOTAL CELLS COUNTED % (AUTO) 100 %; WHITE BLOOD COUNT 5.2 10^3/uL (4.0-10.5)
[2018-09-04 06:36] LABS: ANION GAP 10 (5-19); BLOOD UREA NITROGEN 35 mg/dL (7-20); CALCIUM 8.1 mg/dL (8.4-10.2); CARBON DIOXIDE 27 mmol/L (22-30); CHLORIDE 84 mmol/L (98-107); GLUCOSE 124 mg/dL (75-110); POTASSIUM 3.5 mmol/L (3.6-5.0)
[2018-09-04 07:01] LABS: SODIUM 120.8 mmol/L (137-145)
--- NOTE | 2018-09-04 09:53 | PDOC PROGRESS REPORT ---
Subjective Progress Note for:: 09/04/18 Subjective:: patient admitted to floor still hyponatremic this am continues to be weak, work up in progress will undergo EGD and colonoscopy once sodium has improved keep on clears for now anticipate improvement to have procedure done , now most likely on Sunday Reason For Visit: HYPONATREMIA Physical Exam Vital Signs: Temp Pulse Resp BP Pulse Ox 97.8 F 73 15 126/58 H 97 09/04/18 07:25 09/04/18 07:25 09/04/18 07:25 09/04/18 07:25 09/04/18 07:25 Intake & Output 09/03/18 09/04/18 09/05/18 06:59 06:59 06:59 Intake Total 1530 Output Total 1000 Balance 530 Weight 61.69 kg 77.2 kg General appearance: PRESENT: mild distress, well-developed Head exam: PRESENT: atraumatic, normocephalic Eye exam: PRESENT: EOMI, PERRLA. ABSENT: scleral icterus Mouth exam: PRESENT: moist, neck supple Throat exam: ABSENT: tonsillar exudate, tonsillogmegaly Neck exam: ABSENT: meningismus, tenderness, thyromegaly Respiratory exam: PRESENT: symmetrical, unlabored. ABSENT: tachypnea, wheezes Cardiovascular exam: PRESENT: RRR, +S1, +S2 GI/Abdominal exam: PRESENT: soft. ABSENT: rebound, rigid, tenderness Extremities exam: ABSENT: joint swelling, pedal edema Musculoskeletal exam: PRESENT: full ROM Neurological exam: PRESENT: oriented to time, oriented to situation, CN II-XII grossly intact Focused psych exam: ABSENT: restlessness Skin exam: PRESENT: normal color. ABSENT: mottled, pallor, urticaria, vesicles Results Laboratory Results: 09/04/18 05:24 09/04/18 05:24 09/03/18 09/03/18 09/03/18 12:03 13:20 18:50 WBC RBC Hgb Hct MCV MCH MCHC RDW Plt Count Seg Neutrophils % Lymphocytes % Monocytes % Eosinophils % Basophils % Absolute Neutrophils Absolute Lymphocytes Absolute Monocytes Absolute Eosinophils Absolute Basophils Sodium 120.2 L* 119.2 L* 120.4 L* Potassium 4.2 4.0 Chloride 82 L 84 L Carbon Dioxide 25 25 Anion Gap 13 11 BUN 36 H 36 H Creatinine 0.98 1.04 Est GFR ( Amer) > 60 > 60 Est GFR (Non-Af Amer) 59 L 55 L Glucose 131 H 106 Serum Osmolality Calcium 8.9 8.4 Magnesium TSH Urine Color Urine Appearance Urine pH Ur Specific [place] Urine Protein Urine Glucose (UA) Urine Ketones Urine Blood Urine Nitrite Ur Leukocyte Esterase Urine WBC (Auto) Urine RBC (Auto) Urine Osmolality 09/03/18 09/03/18 09/04/18 22:30 22:30 00:53 WBC RBC Hgb Hct MCV MCH MCHC RDW Plt Count Seg Neutrophils % Lymphocytes % Monocytes % Eosinophils % Basophils % Absolute Neutrophils Absolute Lymphocytes Absolute Monocytes Absolute Eosinophils Absolute Basophils Sodium 120.3 L* Potassium 3.9 Chloride 85 L Carbon Dioxide 24 Anion Gap 11 BUN 35 H Creatinine 0.90 Est GFR ( Amer) > 60 Est GFR (Non-Af Amer) > 60 Glucose 135 H Serum Osmolality Calcium 8.3 L Magnesium TSH Urine Color YELLOW Urine Appearance CLOUDY Urine pH 5.0 Ur Specific [place] 1.012 Urine Protein >=500 H Urine Glucose (UA) 50 H Urine Ketones NEGATIVE Urine Blood SMALL H Urine Nitrite NEGATIVE Ur Leukocyte Esterase TRACE H Urine WBC (Auto) 10 Urine RBC (Auto) 37 Urine Osmolality 278 L 09/04/18 09/04/18 09/04/18 05:24 05:24 05:24 WBC 5.2 RBC 3.22 L Hgb 8.8 L Hct 24.2 L MCV 75 L MCH 27.3 MCHC 36.3 H RDW 14.8 H Plt Count 151 Seg Neutrophils % 65.2 Lymphocytes % 23.2 Monocytes % 10.3 Eosinophils % 0.9 Basophils % 0.4 Absolute Neutrophils 3.4 Absolute Lymphocytes 1.2 Absolute Monocytes 0.5 Absolute Eosinophils 0.0 Absolute Basophils 0.0 Sodium 120.8 L* Potassium 3.5 L Chloride 84 L Carbon Dioxide 27 Anion Gap 10 BUN 35 H Creatinine 0.99 Est GFR ( Amer) > 60 Est GFR (Non-Af Amer) 58 L Glucose 124 H Serum Osmolality Calcium 8.1 L Magnesium 1.7 TSH 0.63 Urine Color Urine Appearance Urine pH Ur Specific [place] Urine Protein Urine Glucose (UA) Urine Ketones Urine Blood Urine Nitrite Ur Leukocyte Esterase Urine WBC (Auto) Urine RBC (Auto) Urine Osmolality 09/04/18 05:24 WBC RBC Hgb Hct MCV MCH MCHC RDW Plt Count Seg Neutrophils % Lymphocytes % Monocytes % Eosinophils % Basophils % Absolute Neutrophils Absolute Lymphocytes Absolute Monocytes Absolute Eosinophils Absolute Basophils Sodium Potassium Chloride Carbon Dioxide Anion Gap BUN Creatinine Est GFR ( Amer) Est GFR (Non-Af Amer) Glucose Serum Osmolality 255 L Calcium Magnesium TSH Urine Color Urine Appearance Urine pH Ur Specific [place] Urine Protein Urine Glucose (UA) Urine Ketones Urine Blood Urine Nitrite Ur Leukocyte Esterase Urine WBC (Auto) Urine RBC (Auto) Urine Osmolality 09/04/18 05:24 NT-Pro-B Natriuret Pep 1470 H Assessment & Plan - Diagnosis (1) Hyponatremia Is this a current diagnosis for this admission?: Yes Plan: improving. however will wait until has resolved prior to proceeding keep on clears for now may need a little more prep prior to that will monitor (2) Nausea and vomiting Qualifiers: Vomiting type: bilious vomiting Qualified Code(s): R11.14 - Bilious vomiting Is this a current diagnosis for this admission?: Yes Plan: will proceed to rule out gastric outlet obstruction rule out H.pylori (3) Change in bowel habits Is this a current diagnosis for this admission?: Yes Plan: will rule out colitis, patient will need to have procedures done prior to her discharge - Time Time Spent with patient: 15-24 minutes
[2018-09-04] MEDS ORDERED: ISOSORBIDE DINITRATE 40 MG PO SCH (10:00)
[2018-09-04] MEDS ORDERED: (PENDING PHARMACY ID) (Nebivolol Hcl [Bystolic] 20 MG) PO SCH (10:00)
[2018-09-04] MEDS ORDERED: (PENDING PHARMACY ID) (Lisinopril [Zestril] 40 MG) PO SCH (10:00)
[2018-09-04] MEDS ORDERED: SPIRONOLACTONE 25 MG PO SCH (10:00)
[2018-09-04] MEDS: ENOXAPARIN SODIUM INJ 40 MG/0.4 ML DISP.SYRIN SUBCUT SCH (11:29)
[2018-09-04] MEDS: SPIRONOLACTONE 25 MG TABLET PO SCH (11:33)
[2018-09-04] MEDS: ASPIRIN 81 MG TABLET, ENT COATED PO SCH (11:33)
[2018-09-04] MEDS: AMLODIPINE BESYLATE 5 MG TABLET PO SCH (11:33)
[2018-09-04] MEDS: LISINOPRIL 10 MG TABLET PO SCH (11:34)
[2018-09-04] MEDS: ISOSORBIDE DINITRATE 20 MG TABLET PO SCH (11:36)
[2018-09-04] MEDS: NEBIVOLOL HCL 10 MG TABLET PO SCH (11:37)
[2018-09-04 14:01] LABS: ANION GAP 10 (5-19); BLOOD UREA NITROGEN 32 mg/dL (7-20); CARBON DIOXIDE 27 mmol/L (22-30); CHLORIDE 84 mmol/L (98-107); GLUCOSE 125 mg/dL (75-110); POTASSIUM 3.9 mmol/L (3.6-5.0); SODIUM 121.1 mmol/L (137-145)
[2018-09-04] MEDS: BUMETANIDE 1 MG TABLET PO SCH (17:23)
--- NOTE | 2018-09-04 17:56 | PDOC PROGRESS REPORT ---
Subjective Progress Note for:: 09/04/18 Subjective:: 09/04/2018-the patient is resting comfortably in bed. She is somewhat anxious. She wants to make sure that none of her medications change. She has had hypertension since she was in her 20s. She has taken a great deal of time to find a regimen that works for her. She certainly does not feel as cold as she did yesterday. The diarrhea, nausea and vomiting have stopped. Reason For Visit: HYPONATREMIA Physical Exam Vital Signs: Temp Pulse Resp BP Pulse Ox 97.5 F 67 12 143/56 H 99 09/04/18 16:00 09/04/18 16:00 09/04/18 16:00 09/04/18 16:00 09/04/18 16:00 Intake & Output 09/03/18 09/04/18 09/05/18 06:59 06:59 06:59 Intake Total 1530 420 Output Total 1000 630 Balance 530 -210 Weight 61.69 kg 77.2 kg General appearance: PRESENT: no acute distress, cooperative, well-developed Respiratory exam: PRESENT: clear to auscultation joshua, rales, rhonchi, wheezes. ABSENT: accessory muscle use, prolonged expiratory phas Cardiovascular exam: PRESENT: RRR, +S1, +S2 GI/Abdominal exam: PRESENT: normal bowel sounds, soft. ABSENT: tenderness Neurological exam: PRESENT: alert, altered, oriented to person, oriented to place, oriented to time, oriented to situation, CN II-XII grossly intact Psychiatric exam: PRESENT: appropriate affect, normal mood Skin exam: PRESENT: dry, warm. ABSENT: rash Results Laboratory Results: 09/04/18 05:24 09/04/18 13:05 09/03/18 09/03/18 09/03/18 18:50 22:30 22:30 WBC RBC Hgb Hct MCV MCH MCHC RDW Plt Count Seg Neutrophils % Lymphocytes % Monocytes % Eosinophils % Basophils % Absolute Neutrophils Absolute Lymphocytes Absolute Monocytes Absolute Eosinophils Absolute Basophils Sodium 120.4 L* Potassium 4.0 Chloride 84 L Carbon Dioxide 25 Anion Gap 11 BUN 36 H Creatinine 1.04 Est GFR ( Amer) > 60 Est GFR (Non-Af Amer) 55 L Glucose 106 Serum Osmolality Calcium 8.4 Magnesium TSH Urine Color YELLOW Urine Appearance CLOUDY Urine pH 5.0 Ur Specific [place] 1.012 Urine Protein >=500 H Urine Glucose (UA) 50 H Urine Ketones NEGATIVE Urine Blood SMALL H Urine Nitrite NEGATIVE Ur Leukocyte Esterase TRACE H Urine WBC (Auto) 10 Urine RBC (Auto) 37 Urine Osmolality 278 L 09/04/18 09/04/18 09/04/18 00:53 05:24 05:24 WBC 5.2 RBC 3.22 L Hgb 8.8 L Hct 24.2 L MCV 75 L MCH 27.3 MCHC 36.3 H RDW 14.8 H Plt Count 151 Seg Neutrophils % 65.2 Lymphocytes % 23.2 Monocytes % 10.3 Eosinophils % 0.9 Basophils % 0.4 Absolute Neutrophils 3.4 Absolute Lymphocytes 1.2 Absolute Monocytes 0.5 Absolute Eosinophils 0.0 Absolute Basophils 0.0 Sodium 120.3 L* 120.8 L* Potassium 3.9 3.5 L Chloride 85 L 84 L Carbon Dioxide 24 27 Anion Gap 11 10 BUN 35 H 35 H Creatinine 0.90 0.99 Est GFR ( Amer) > 60 > 60 Est GFR (Non-Af Amer) > 60 58 L Glucose 135 H 124 H Serum Osmolality Calcium 8.3 L 8.1 L Magnesium 1.7 TSH Urine Color Urine Appearance Urine pH Ur Specific [place] Urine Protein Urine Glucose (UA) Urine Ketones Urine Blood Urine Nitrite Ur Leukocyte Esterase Urine WBC (Auto) Urine RBC (Auto) Urine Osmolality 09/04/18 09/04/18 09/04/18 05:24 05:24 13:05 WBC RBC Hgb Hct MCV MCH MCHC RDW Plt Count Seg Neutrophils % Lymphocytes % Monocytes % Eosinophils % Basophils % Absolute Neutrophils Absolute Lymphocytes Absolute Monocytes Absolute Eosinophils Absolute Basophils Sodium 121.1 L Potassium 3.9 Chloride 84 L Carbon Dioxide 27 Anion Gap 10 BUN 32 H Creatinine 0.95 Est GFR ( Amer) > 60 Est GFR (Non-Af Amer) > 60 Glucose 125 H Serum Osmolality 255 L Calcium 8.0 L Magnesium TSH 0.63 Urine Color Urine Appearance Urine pH Ur Specific [place] Urine Protein Urine Glucose (UA) Urine Ketones Urine Blood Urine Nitrite Ur Leukocyte Esterase Urine WBC (Auto) Urine RBC (Auto) Urine Osmolality 09/04/18 05:24 NT-Pro-B Natriuret Pep 1470 H Assessment & Plan - Diagnosis (1) Hyponatremia Is this a current diagnosis for this admission?: Yes Plan: I did review of the patient's blood work. She has had hyponatremia with serum sodium less than 130 for several months. This is not actually a new finding. She is more symptomatic and her serum sodium is now at 120 which is the lowest it has been since this problem started. It is unknown the exact etiology. 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 Could be related to her chronic kidney disease. Could be related to her most recent GI issues. I will check urine studies and put her on a fluid restriction. She will have normal saline at 75 mL an hour with every 6 hours electrolyte checks so as not to overcorrect or correct her sodium too quickly. 09/04/2018-the patient's sodium is not correcting as quickly as I would like. I will allow salt in her diet. Review of blood work shows that her sodium has been steadily decreasing since May. In addition to removing the sodium restriction I will continue the fluid restriction. If her serum sodium does not shift enough I will titrate with 3% saline. Her correction would likely require 50 mL of 3% saline per hour. (2) Nausea and vomiting Qualifiers: Vomiting type: bilious vomiting Qualified Code(s): R11.14 - Bilious vomiting Is this a current diagnosis for this admission?: Yes Plan: As noted above this is been an issue for the patient for many weeks. She will still need the gastroscopy and colonoscopy. This can occur when she is stable. 09/04/2018-resolved (3) Diabetes mellitus Qualifiers: Diabetes mellitus type: type 2 Diabetes mellitus half-way insulin use: with half-way use Diabetes mellitus complication detail: with nephropathy Is this a current diagnosis for this admission?: Yes Plan: No continue the patient's current regimen with insulin. She will also be on a sliding scale and a carbohydrate consistent diet. 09/04/2018-the Accu-Cheks are still variable. Continue current regimen at this time. (4) Hypertension Qualifiers: Hypertension type: essential hypertension Qualified Code(s): I10 - Essential (primary) hypertension Is this a current diagnosis for this admission?: Yes Plan: The patient has had hypertension since 24 years old. She was unable to tell me if it was specifically renovascular hypertension. I will continue her current medication regimen. (5) Chronic congestive heart failure Qualifiers: Heart failure type: unspecified Qualified Code(s): I50.9 - Heart failure, unspecified Is this a current diagnosis for this admission?: Yes Plan: Continue current regimen. She is currently asymptomatic for congestive heart failure. 09/04/2018-we discussed the role of her Demadex. She has struggled to get an effective regimen. The Demadex is likely contributing to her hyponatremia. I did add the Demadex back but will keep her fluid restriction. We will continue to follow the serum sodium. - Time Time Spent with patient: 15-24 minutes Medications reviewed and adjusted accordingly: Yes
[2018-09-04] MEDS ORDERED: BUMETANIDE 1 MG PO SCH (18:00)
[2018-09-04] MEDS: ATORVASTATIN CALCIUM 40 MG TABLET PO SCH (21:54)
[2018-09-04] MEDS: INSULIN GLARGINE,HUM.REC.ANLOG 300 UNIT/3 ML INSULN.PEN SUBCUT SCH (21:55)
[2018-09-05] MEDS: HYDRALAZINE HCL 50 MG TABLET PO SCH ×4 (02:55→21:18)
[2018-09-05] MEDS: HYDROCODONE/ACETAMINOPHEN 10-325 MG TABLET PO PRN ×3 (02:58→21:18)
[2018-09-05] MEDS: GABAPENTIN 300 MG CAPSULE PO SCH ×3 (05:21→21:18)
[2018-09-05] MEDS: LANSOPRAZOLE 30 MG TAB.RAP.DR PO SCH (05:21)
[2018-09-05 05:53] LABS: ANION GAP 12 (5-19); BLOOD UREA NITROGEN 29 mg/dL (7-20); CALCIUM 8.5 mg/dL (8.4-10.2); CARBON DIOXIDE 26 mmol/L (22-30); CHLORIDE 87 mmol/L (98-107); GLUCOSE 137 mg/dL (75-110); POTASSIUM 4.6 mmol/L (3.6-5.0); SODIUM 125.3 mmol/L (137-145)
[2018-09-05] MEDS: BUMETANIDE 1 MG TABLET PO SCH ×2 (09:39→18:02)
[2018-09-05] MEDS: SPIRONOLACTONE 25 MG TABLET PO SCH (09:39)
[2018-09-05] MEDS: ISOSORBIDE DINITRATE 20 MG TABLET PO SCH (09:40)
[2018-09-05] MEDS: NEBIVOLOL HCL 10 MG TABLET PO SCH (09:40)
[2018-09-05] MEDS: LISINOPRIL 10 MG TABLET PO SCH (09:41)
[2018-09-05] MEDS: AMLODIPINE BESYLATE 5 MG TABLET PO SCH (09:41)
[2018-09-05] MEDS: ENOXAPARIN SODIUM INJ 40 MG/0.4 ML DISP.SYRIN SUBCUT SCH (11:21)
[2018-09-05] MEDS: ASPIRIN 81 MG TABLET, ENT COATED PO SCH (11:21)
--- NOTE | 2018-09-05 12:18 | PDOC PROGRESS REPORT ---
Subjective Progress Note for:: 09/05/18 Subjective:: patient's sodium is improving would expect sufficient correction to try and proceed on Sunday symptoms are improved as her electrolytes are being corrected patient can have a prep overnight in anticipation of procedure Reason For Visit: HYPONATREMIA Physical Exam Vital Signs: Temp Pulse Resp BP Pulse Ox 97.5 F 77 17 161/64 H 100 09/05/18 08:38 09/05/18 08:38 09/05/18 08:38 09/05/18 08:38 09/05/18 08:38 Intake & Output 09/04/18 09/05/18 09/06/18 06:59 06:59 06:59 Intake Total 1530 892 Output Total 1000 1530 Balance 530 -638 Weight 77.2 kg 78.9 kg General appearance: PRESENT: no acute distress, well-developed, well-nourished Head exam: PRESENT: atraumatic, normocephalic Eye exam: PRESENT: EOMI, PERRLA. ABSENT: nystagmus, periorbital swelling, scleral icterus Mouth exam: PRESENT: moist, neck supple Throat exam: ABSENT: tonsillar exudate, tonsillogmegaly Neck exam: ABSENT: meningismus, tenderness, thyromegaly Respiratory exam: PRESENT: symmetrical, unlabored. ABSENT: tachypnea, wheezes Cardiovascular exam: PRESENT: RRR, +S1, +S2 GI/Abdominal exam: PRESENT: soft. ABSENT: rebound, rigid, tenderness Extremities exam: ABSENT: joint swelling, pedal edema Musculoskeletal exam: PRESENT: full ROM Neurological exam: PRESENT: oriented to time, oriented to situation, CN II-XII grossly intact Focused psych exam: ABSENT: restlessness Skin exam: PRESENT: normal color. ABSENT: mottled, pallor, petechiae, urticaria , vesicles Results Laboratory Results: 09/04/18 05:24 09/05/18 04:53 09/04/18 09/05/18 13:05 04:53 Sodium 121.1 L 125.3 L Potassium 3.9 4.6 Chloride 84 L 87 L Carbon Dioxide 27 26 Anion Gap 10 12 BUN 32 H 29 H Creatinine 0.95 0.92 Est GFR ( Amer) > 60 > 60 Est GFR (Non-Af Amer) > 60 > 60 Glucose 125 H 137 H Calcium 8.0 L 8.5 09/04/18 05:24 NT-Pro-B Natriuret Pep 1470 H Assessment & Plan - Diagnosis (1) Hyponatremia Is this a current diagnosis for this admission?: Yes Plan: improving ,continue correction would recommending rechecking some time this evening since if patient is unable to get procedure done tomorrow I will not be available until Sunday 09/09 (2) Nausea and vomiting Qualifiers: Vomiting type: bilious vomiting Qualified Code(s): R11.14 - Bilious vomiting Is this a current diagnosis for this admission?: Yes Plan: EGD as planned antiemetics as planned (3) Change in bowel habits Is this a current diagnosis for this admission?: Yes Plan: will need colonoscopy as well will proceed with Propofol sedation - Time Time Spent with patient: 15-24 minutes
[2018-09-05] MEDS ORDERED: MAGNESIUM CITRATE 296 ML BOTTLE PO ONE ×2 (12:30→17:00)
[2018-09-05] MEDS ORDERED: SODIUM CHLORIDE 3% 500 ML IV ONE (15:30)
[2018-09-05] MEDS ORDERED: MAGNESIUM CITRATE 296 ML BOTTLE PO SCH (16:00)
[2018-09-05] MEDS ORDERED: NORMAL SALINE 1000 ML 1,000 ML IV PRN (16:02)
[2018-09-05 16:08] LABS: ANION GAP 9 (5-19); BLOOD UREA NITROGEN 31 mg/dL (7-20); CALCIUM 8.5 mg/dL (8.4-10.2); CARBON DIOXIDE 27 mmol/L (22-30); CHLORIDE 88 mmol/L (98-107); GLUCOSE 176 mg/dL (75-110); POTASSIUM 4.4 mmol/L (3.6-5.0); SODIUM 124.3 mmol/L (137-145)
[2018-09-05] MEDS ORDERED: BISACODYL 5 MG TABEC PO ONE (17:00)
[2018-09-05] MEDS ORDERED: SODIUM CHLORIDE 1 GM TABLET PO ONE ×2 (17:00→22:00)
[2018-09-05] MEDS: ATORVASTATIN CALCIUM 40 MG TABLET PO SCH (21:18)
[2018-09-05] MEDS: INSULIN GLARGINE,HUM.REC.ANLOG 300 UNIT/3 ML INSULN.PEN SUBCUT SCH (21:19)
[2018-09-06 05:32] LABS: ABSOLUTE EOSINOPHILS # (AUTO) 0.1 10^3/uL (0.0-0.6); ABSOLUTE LYMPHOCYTES (AUTO) 1.4 10^3/uL (0.5-4.7); ABSOLUTE MONOCYTES (AUTO) 0.7 10^3/uL (0.1-1.4); BASOPHILS % (AUTO) 0.5 % (0-2); EOSINOPHILS % (AUTO) 1.6 % (0-6); HEMATOCRIT 26.7 % (36.0-47.0); HEMOGLOBIN 9.7 g/dL (12.0-15.5); LYMPHOCYTES % (AUTO) 22.5 % (13-45); MEAN CORPUSCULAR HEMOGLOBIN 27.8 pg (27.0-33.4); MEAN CORPUSCULAR HGB CONC 36.3 g/dL (32.0-36.0); MEAN CORPUSCULAR VOLUME 76 fl (80-97); MONOCYTES % (AUTO) 10.8 % (3-13); PLATELET COUNT 144 10^3/uL (150-450); RED CELL DISTRIBUTION WIDTH 14.6 % (11.5-14.0); SEGMENTED NEUTROPHILS % (AUTO) 64.6 % (42-78); TOTAL CELLS COUNTED % (AUTO) 100 %; WHITE BLOOD COUNT 6.2 10^3/uL (4.0-10.5)
[2018-09-06 05:55] LABS: ANION GAP 9 (5-19); BLOOD UREA NITROGEN 24 mg/dL (7-20); CALCIUM 8.6 mg/dL (8.4-10.2); CARBON DIOXIDE 28 mmol/L (22-30); CHLORIDE 91 mmol/L (98-107); GLUCOSE 109 mg/dL (75-110); POTASSIUM 4.6 mmol/L (3.6-5.0); SODIUM 128.2 mmol/L (137-145)
[2018-09-06] MEDS: GABAPENTIN 300 MG CAPSULE PO SCH ×3 (06:09→21:57)
[2018-09-06] MEDS: HYDRALAZINE HCL 50 MG TABLET PO SCH ×3 (06:09→21:56)
[2018-09-06] MEDS: HYDROCODONE/ACETAMINOPHEN 10-325 MG TABLET PO PRN ×3 (06:09→22:02)
[2018-09-06] MEDS: LANSOPRAZOLE 30 MG TAB.RAP.DR PO SCH (06:10)
[2018-09-06] MEDS ORDERED: PROPOFOL INJ 200 MG/20 ML VIAL IV ONE (07:07)
[2018-09-06] MEDS: ASPIRIN 81 MG TABLET, ENT COATED PO SCH (09:20)
[2018-09-06] MEDS: NEBIVOLOL HCL 10 MG TABLET PO SCH (09:20)
[2018-09-06] MEDS: BUMETANIDE 1 MG TABLET PO SCH ×2 (09:20→17:18)
[2018-09-06] MEDS: SPIRONOLACTONE 25 MG TABLET PO SCH (09:20)
[2018-09-06] MEDS: ISOSORBIDE DINITRATE 20 MG TABLET PO SCH (09:21)
[2018-09-06] MEDS: AMLODIPINE BESYLATE 5 MG TABLET PO SCH (09:21)
[2018-09-06] MEDS: LISINOPRIL 10 MG TABLET PO SCH (09:21)
[2018-09-06] MEDS: ENOXAPARIN SODIUM INJ 40 MG/0.4 ML DISP.SYRIN SUBCUT SCH (09:25)
[2018-09-06] MEDS ORDERED: FENTANYL CITRATE INJ/PF 100 MCG/2 ML AMPUL IV PRN ×3 (11:26)
[2018-09-06] MEDS ORDERED: DIPHENHYDRAMINE HCL 50 MG/ML VIAL IV PRN (11:26)
[2018-09-06] MEDS ORDERED: ONDANSETRON HCL INJ/PF 4 MG/2 ML SDV IV PRN (11:26)
[2018-09-06] MEDS ORDERED: MEPERIDINE HCL/PF INJ 25 MG/1 ML DISP.SYRIN IV PRN (11:26)
--- NOTE | 2018-09-06 12:07 | Operative Report ---
Operative Report DATE OF SURGERY: 09/06/18 Operative Report: The risks, benefits and alternatives of the procedure including the risk of bleeding, perforation requiring surgery are explained to the patient in detail and informed consent is obtained. Patient was brought back to the operating room and placed in the left, lateral decubital position. Timeout was called. Propofol medication is administered. A rectal examination was done which did not reveal any masses, tears or fissures. An Olympus videoscope was introduced into the patient's rectum. The scope was then carefully advanced all the way to the cecum. The cecum was identified by the usual anatomical landmarks including the ileocecal valve as well as the appendiceal office. Photodocumentation is obtained. The scope was then sequentially pulled back via the various segments of the colon including the ascending colon, hepatic flexure, transverse colon, splenic flexure, descending colon and finally into the rectosigmoid portions of the colon. Retroflexion maneuver was performed. The risks benefits and alternatives of the procedure explained to the patient in detail and informed consent is obtained.A GIF Olympus video scope was inserted into the patient's mouth and hypopharynx, the esophagus is identified intubated and insufflated, the scope was then advanced through the esophagus stomach and duodenum, retroflexion maneuver is done the esophagus stomach and first and second portions of the duodenum examined PREOPERATIVE DIAGNOSIS: Nausea vomiting, change in bowel habits, hyponatremia POSTOPERATIVE DIAGNOSIS: Cecal polyp that was removed via snare polypectomy. Transverse colon polyp that was removed via snare polypectomy. Internal/ external hemorrhoids. Residual food in the stomach suggestive of gastroparesis. Gastritis status post biopsy rule out Helicobacter pylori. Of note patient's nausea and vomiting did resolve with gradual correction of her hyponatremia. OPERATION: Colonoscopy with snare polypectomy. EGD with biopsy SURGEON: MARTHA JOLLY ANESTHESIA: LMAC TISSUE REMOVED OR ALTERED: As noted above. COMPLICATIONS: None. ESTIMATED BLOOD LOSS: None. INTRAOPERATIVE FINDINGS: As noted above. PROCEDURE: Patient tolerated the procedure well. No immediate postprocedure complications are noted. Patient is sent back to her room in good condition. Resume all previous diet, meds as well as activity level. Wait on the biopsies. 3-5-year surveillance colonoscopy. Follow-up as outpatient. May need gastric emptying scan to document gastroparesis. At which point perhaps Botox injection may be necessary Continue correction of her hyponatremia prior to being discharge Workup for hyponatremia needs to be done as well
--- NOTE | 2018-09-06 16:19 | PDOC PROGRESS REPORT ---
Subjective Progress Note for:: 09/05/18 Subjective:: 09/04/2018-the patient is resting comfortably in bed. She is somewhat anxious. She wants to make sure that none of her medications change. She has had hypertension since she was in her 20s. She has taken a great deal of time to find a regimen that works for her. She certainly does not feel as cold as she did yesterday. The diarrhea, nausea and vomiting have stopped. 09/05/2018-the patient does not feel as cold. She has not been having any abdominal discomfort. Reason For Visit: HYPONATREMIA Physical Exam Vital Signs: Temp Pulse Resp BP Pulse Ox 97.8 F 69 16 132/45 H 95 09/06/18 12:10 09/06/18 14:00 09/06/18 12:10 09/06/18 12:10 09/06/18 12:10 Intake & Output 09/05/18 09/06/18 09/07/18 06:59 06:59 06:59 Intake Total 892 2979 600 Output Total 1530 2425 0 Balance -638 554 600 Weight 78.9 kg 79.9 kg General appearance: PRESENT: no acute distress, thin, well-developed Respiratory exam: PRESENT: clear to auscultation joshua, symmetrical, unlabored. ABSENT: accessory muscle use, rales, rhonchi, wheezes Cardiovascular exam: PRESENT: RRR, +S1, +S2, systolic murmur - 2/6 GI/Abdominal exam: PRESENT: normal bowel sounds, soft. ABSENT: tenderness Neurological exam: PRESENT: alert, awake, oriented to person, oriented to place , oriented to time, oriented to situation, CN II-XII grossly intact Psychiatric exam: PRESENT: depressed Results Laboratory Results: 09/06/18 04:57 09/06/18 04:57 09/05/18 09/06/18 09/06/18 15:45 04:57 04:57 WBC 6.2 RBC 3.50 L Hgb 9.7 L Hct 26.7 L MCV 76 L MCH 27.8 MCHC 36.3 H RDW 14.6 H Plt Count 144 L Seg Neutrophils % 64.6 Lymphocytes % 22.5 Monocytes % 10.8 Eosinophils % 1.6 Basophils % 0.5 Absolute Neutrophils 4.0 Absolute Lymphocytes 1.4 Absolute Monocytes 0.7 Absolute Eosinophils 0.1 Absolute Basophils 0.0 Sodium 124.3 L 128.2 L Potassium 4.4 4.6 Chloride 88 L 91 L Carbon Dioxide 27 28 Anion Gap 9 9 BUN 31 H 24 H Creatinine 0.90 0.78 Est GFR ( Amer) > 60 > 60 Est GFR (Non-Af Amer) > 60 > 60 Glucose 176 H 109 Calcium 8.5 8.6 09/04/18 05:24 NT-Pro-B Natriuret Pep 1470 H Assessment & Plan - Diagnosis (1) Hyponatremia Is this a current diagnosis for this admission?: Yes Plan: I did review of the patient's blood work. She has had hyponatremia with serum sodium less than 130 for several months. This is not actually a new finding. She is more symptomatic and her serum sodium is now at 120 which is the lowest it has been since this problem started. It is unknown the exact etiology. She does have a guide visitor that she sees. Could be related to her chronic kidney disease. Could be related to her most recent GI issues. I will check urine studies and put her on a fluid restriction. She will have normal saline at 75 mL an hour with every 6 hours electrolyte checks so as not to overcorrect or correct her sodium too quickly. 09/04/2018-the patient's sodium is not correcting as quickly as I would like. I will allow salt in her diet. Review of blood work shows that her sodium has been steadily decreasing since May. In addition to removing the sodium restriction I will continue the fluid restriction. If her serum sodium does not shift enough I will titrate with 3% saline. Her correction would likely require 50 mL of 3% saline per hour. 09/05/2018-the 3% saline infusion was not attempted as the patient would have have to transfer to ICU. Instead, in anticipation of sodium changes with the bowel prep, I gave her a salt tablet. Her serum sodium continues to improve. Continue to monitor. She may need to continue her fluid restriction as an outpatient. (2) Nausea and vomiting Qualifiers: Vomiting type: bilious vomiting Qualified Code(s): R11.14 - Bilious vomiting Is this a current diagnosis for this admission?: Yes Plan: As noted above this is been an issue for the patient for many weeks. She will still need the gastroscopy and colonoscopy. This can occur when she is stable. 09/04/2018-resolved 09/05/2018-no further nausea and vomiting today. (3) Diabetes mellitus Qualifiers: Diabetes mellitus type: type 2 Diabetes mellitus prison insulin use: with prison use Diabetes mellitus complication detail: with nephropathy Is this a current diagnosis for this admission?: Yes Plan: No continue the patient's current regimen with insulin. She will also be on a sliding scale and a carbohydrate consistent diet. 09/04/2018-the Accu-Cheks are still variable. Continue current regimen at this time. 09/05/2018-the patient did have a bowel prep. It is not surprising that there is some variation. Continue to monitor. (4) Hypertension Qualifiers: Hypertension type: essential hypertension Qualified Code(s): I10 - Essential (primary) hypertension Is this a current diagnosis for this admission?: Yes Plan: The patient has had hypertension since 24 years old. She was unable to tell me if it was specifically renovascular hypertension. I will continue her current medication regimen. 09/05/2018-continue current regimen. Patient reports significant changes in medication regimens in the past have only created difficulties. She should follow-up with cardiology as an outpatient. (5) Chronic congestive heart failure Qualifiers: Heart failure type: diastolic Qualified Code(s): I50.32 - Chronic diastolic (congestive) heart failure Is this a current diagnosis for this admission?: Yes Plan: Continue current regimen. She is currently asymptomatic for congestive heart failure. 09/04/2018-we discussed the role of her Demadex. She has struggled to get an effective regimen. The Demadex is likely contributing to her hyponatremia. I did add the Demadex back but will keep her fluid restriction. We will continue to follow the serum sodium. 09/05/2018-I was able to find an echocardiogram previously. The patient does have 2/4 diastolic dysfunction. She also has underlying stage III chronic kidney disease with mitral regurgitation and atrial regurgitation. She is back on her Demadex. Continue current regimen. She may need to continue her fluid restriction as an outpatient. - Time Time Spent with patient: 25-34 minutes - During the course of our discussion I did asked the patient about follow-up appointments with specialist. Unfortunately the patient is going through a divorce. Her has frozen her [employer] medical spending account. She reports that she has no money for co- pays and unfortunately does not feel that she can keep follow-up appointments. I did encourage her to find a way because of the complex nature of her illnesses. She would also benefit from treatment of what is likely underlying depression.
[2018-09-06 16:34] LABS: ANION GAP 7 (5-19); BLOOD UREA NITROGEN 24 mg/dL (7-20); CALCIUM 8.6 mg/dL (8.4-10.2); CARBON DIOXIDE 29 mmol/L (22-30); CHLORIDE 92 mmol/L (98-107); GLUCOSE 151 mg/dL (75-110); POTASSIUM 4.9 mmol/L (3.6-5.0); SODIUM 128.3 mmol/L (137-145)
[2018-09-06] MEDS: ONDANSETRON 4 MG TAB.RAPDIS PO PRN (17:42)
--- NOTE | 2018-09-06 19:37 | PDOC PROGRESS REPORT ---
Subjective Progress Note for:: 09/06/18 - Seen on rounds this morning Subjective:: Patient is sitting on the bed comfortably. She has no complaints at this time. She does however want to know what her colonoscopy and EGD results have shown. I told her that I will signed out and let her know when I note the note from the GI physician. She tells me that she wants to talk to the GI doctor herself about her procedures Reason For Visit: HYPONATREMIA Physical Exam Vital Signs: Temp Pulse Resp BP Pulse Ox 97.8 F 67 18 144/67 H 100 09/06/18 17:00 09/06/18 17:00 09/06/18 17:00 09/06/18 17:00 09/06/18 17:00 Intake & Output 09/05/18 09/06/18 09/07/18 06:59 06:59 06:59 Intake Total 892 2979 920 Output Total 1530 2425 900 Balance -638 554 20 Weight 173 lb 15.115 oz 176 lb 2.389 oz General appearance: PRESENT: no acute distress Head exam: PRESENT: atraumatic, normocephalic Eye exam: PRESENT: EOMI. ABSENT: conjunctival injection, scleral icterus Ear exam: PRESENT: normal external ear exam Mouth exam: PRESENT: moist Neck exam: ABSENT: tracheal deviation Respiratory exam: PRESENT: clear to auscultation joshua, symmetrical Cardiovascular exam: PRESENT: +S1, +S2 Pulses: PRESENT: +2 pedal pulses bilateral GI/Abdominal exam: PRESENT: normal bowel sounds, soft. ABSENT: tenderness Extremities exam: ABSENT: pedal edema Neurological exam: PRESENT: alert, awake, oriented to person, oriented to place , oriented to time, oriented to situation, CN II-XII grossly intact Skin exam: PRESENT: dry, warm Results Laboratory Results: 09/06/18 04:57 09/06/18 16:05 09/06/18 09/06/18 09/06/18 04:57 04:57 16:05 WBC 6.2 RBC 3.50 L Hgb 9.7 L Hct 26.7 L MCV 76 L MCH 27.8 MCHC 36.3 H RDW 14.6 H Plt Count 144 L Seg Neutrophils % 64.6 Lymphocytes % 22.5 Monocytes % 10.8 Eosinophils % 1.6 Basophils % 0.5 Absolute Neutrophils 4.0 Absolute Lymphocytes 1.4 Absolute Monocytes 0.7 Absolute Eosinophils 0.1 Absolute Basophils 0.0 Sodium 128.2 L 128.3 L Potassium 4.6 4.9 Chloride 91 L 92 L Carbon Dioxide 28 29 Anion Gap 9 7 BUN 24 H 24 H Creatinine 0.78 0.94 Est GFR ( Amer) > 60 > 60 Est GFR (Non-Af Amer) > 60 > 60 Glucose 109 151 H Calcium 8.6 8.6 09/04/18 05:24 NT-Pro-B Natriuret Pep 1470 H Assessment & Plan - Diagnosis (1) Chronic congestive heart failure Qualifiers: Heart failure type: diastolic Qualified Code(s): I50.32 - Chronic diastolic (congestive) heart failure Is this a current diagnosis for this admission?: Yes (2) Hyponatremia Is this a current diagnosis for this admission?: Yes (3) Nausea and vomiting Qualifiers: Vomiting type: bilious vomiting Qualified Code(s): R11.14 - Bilious vomiting Is this a current diagnosis for this admission?: Yes (4) Diabetes mellitus type 2 in obese Is this a current diagnosis for this admission?: Yes - Plan Summary Plan Summary: Hyponatremia-unclear etiology but it seems to be related to her heart failure, diuretic use. Her sodium has improved to 128 today. It started on fluid restriction which is helping. She is on her diuretics and have spoken to her about titrating it but she is not happy about that. She is tells me that she took Lasix and it did not work for her and the Bumex is helping. I told her that I do not want her to stop the Bumex but maybe we can titrate the dose so her sodium levels remain appropriate. I have not made any changes today but will talk to her again tomorrow Congestive heart failure- continue with Bumex for now. I do not see an echocardiogram in her chart at this time. Nausea and vomiting-she underwent EGD and colonoscopy today. I have not spoken with the GI physician at this time. I did however read his postop note-he has taken multiple biopsies and also noted possible gastroparesis during his EGD procedure. If patient is affected of gastroparesis then Reglan would be a medication of choice to help. Will await to see GI physicians progress note tomorrow for recommendations. She however is feeling better today and has not complained to me about nausea and vomiting. Diabetes mellitus-continue with Lantus and sliding scale insulin.
[2018-09-06] MEDS: ATORVASTATIN CALCIUM 40 MG TABLET PO SCH (21:57)
[2018-09-06] MEDS: INSULIN GLARGINE,HUM.REC.ANLOG 300 UNIT/3 ML INSULN.PEN SUBCUT SCH (21:57)
[2018-09-07] MEDS: LANSOPRAZOLE 30 MG TAB.RAP.DR PO SCH (05:47)
[2018-09-07] MEDS: GABAPENTIN 300 MG CAPSULE PO SCH ×3 (05:47→21:22)
[2018-09-07] MEDS: HYDRALAZINE HCL 50 MG TABLET PO SCH ×2 (05:47→14:57)
[2018-09-07] MEDS: ASPIRIN 81 MG TABLET, ENT COATED PO SCH (09:06)
[2018-09-07] MEDS: LISINOPRIL 10 MG TABLET PO SCH (09:06)
[2018-09-07] MEDS: SPIRONOLACTONE 25 MG TABLET PO SCH (09:07)
[2018-09-07] MEDS: AMLODIPINE BESYLATE 5 MG TABLET PO SCH (09:07)
[2018-09-07] MEDS: BUMETANIDE 1 MG TABLET PO SCH ×2 (09:07→17:06)
[2018-09-07] MEDS: ISOSORBIDE DINITRATE 20 MG TABLET PO SCH (09:07)
[2018-09-07] MEDS: NEBIVOLOL HCL 10 MG TABLET PO SCH (09:07)
[2018-09-07] MEDS: INSULIN LISPRO 100 UNIT/ML 3 ML VIAL SUBCUT PRN ×2 (09:08→17:05)
[2018-09-07 09:09] LABS: ABSOLUTE EOSINOPHILS # (AUTO) 0.1 10^3/uL (0.0-0.6); ABSOLUTE MONOCYTES (AUTO) 0.5 10^3/uL (0.1-1.4); ABSOLUTE NEUT (AUTO) 3.5 10^3/uL (1.7-8.2); BASOPHILS % (AUTO) 0.7 % (0-2); EOSINOPHILS % (AUTO) 1.5 % (0-6); HEMATOCRIT 24.1 % (36.0-47.0); HEMOGLOBIN 8.6 g/dL (12.0-15.5); LYMPHOCYTES % (AUTO) 20.1 % (13-45); MEAN CORPUSCULAR HEMOGLOBIN 27.5 pg (27.0-33.4); MEAN CORPUSCULAR HGB CONC 35.6 g/dL (32.0-36.0); MEAN CORPUSCULAR VOLUME 77 fl (80-97); MONOCYTES % (AUTO) 8.9 % (3-13); PLATELET COUNT 129 10^3/uL (150-450); RED BLOOD COUNT 3.12 10^6/uL (3.72-5.28); RED CELL DISTRIBUTION WIDTH 14.7 % (11.5-14.0); SEGMENTED NEUTROPHILS % (AUTO) 68.8 % (42-78); TOTAL CELLS COUNTED % (AUTO) 100 %; WHITE BLOOD COUNT 5.1 10^3/uL (4.0-10.5)
[2018-09-07] MEDS: HYDROCODONE/ACETAMINOPHEN 10-325 MG TABLET PO PRN ×3 (09:15→21:28)
[2018-09-07 09:20] LABS: ANION GAP 10 (5-19); BLOOD UREA NITROGEN 23 mg/dL (7-20); CALCIUM 8.4 mg/dL (8.4-10.2); CARBON DIOXIDE 25 mmol/L (22-30); CHLORIDE 93 mmol/L (98-107); GLUCOSE 126 mg/dL (75-110); POTASSIUM 4.3 mmol/L (3.6-5.0)
[2018-09-07] MEDS: ENOXAPARIN SODIUM INJ 40 MG/0.4 ML DISP.SYRIN SUBCUT SCH (09:20)
[2018-09-07] MEDS: ONDANSETRON 4 MG TAB.RAPDIS PO PRN (12:37)
[2018-09-07] MEDS ORDERED: HYDRALAZINE HCL 50 MG TABLET PO SCH (14:38)
[2018-09-07] MEDS: HYDRALAZINE HCL 25 MG TABLET PO SCH ×2 (15:11→21:22)
--- NOTE | 2018-09-07 17:06 | PDOC PROGRESS REPORT ---
Subjective Progress Note for:: 09/07/18 - seen on rounds this morning Subjective:: Patient this morning complains to me that her legs are very swollen and her thighs are very swollen. She also tells me that her abdomen is very swollen. I told her that it may be bloating from the colonoscopy procedure yesterday. He also wants to know the results from her colonoscopy and EGD. I discussed the findings from the report yesterday. Reason For Visit: HYPONATREMIA Physical Exam Vital Signs: Temp Pulse Resp BP Pulse Ox 98.3 F 72 16 132/80 H 100 09/07/18 11:24 09/07/18 14:37 09/07/18 14:37 09/07/18 14:37 09/07/18 11:24 Intake & Output 09/06/18 09/07/18 09/08/18 06:59 06:59 06:59 Intake Total 2979 1796 520 Output Total 2425 2000 400 Balance 554 -204 120 Weight 176 lb 2.389 oz 185 lb 13.595 oz General appearance: PRESENT: no acute distress Head exam: PRESENT: atraumatic, normocephalic Eye exam: PRESENT: EOMI. ABSENT: conjunctival injection, scleral icterus Ear exam: PRESENT: normal external ear exam Mouth exam: PRESENT: tongue midline Neck exam: ABSENT: tracheal deviation Respiratory exam: PRESENT: clear to auscultation joshua, symmetrical Cardiovascular exam: PRESENT: +S1, +S2 Pulses: PRESENT: +2 pedal pulses bilateral GI/Abdominal exam: PRESENT: normal bowel sounds, soft - I did not appreciate any edema of the abdomen. ABSENT: tenderness Extremities exam: PRESENT: other - Bilateral lower extremity edema 2-3+ up to mid beaulieu. There is some mild edema of the posterior bilateral thighs. Neurological exam: PRESENT: alert, awake, oriented to person, oriented to place , oriented to time, oriented to situation, CN II-XII grossly intact Skin exam: PRESENT: dry, warm Results Laboratory Results: 09/07/18 08:45 09/07/18 08:45 09/07/18 09/07/18 09/07/18 08:45 08:45 08:45 WBC 5.1 RBC 3.12 L Hgb 8.6 L Hct 24.1 L MCV 77 L MCH 27.5 MCHC 35.6 RDW 14.7 H Plt Count 129 L Seg Neutrophils % 68.8 Lymphocytes % 20.1 Monocytes % 8.9 Eosinophils % 1.5 Basophils % 0.7 Absolute Neutrophils 3.5 Absolute Lymphocytes 1.0 Absolute Monocytes 0.5 Absolute Eosinophils 0.1 Absolute Basophils 0.0 Sodium 128.0 L Potassium 4.3 Chloride 93 L Carbon Dioxide 25 Anion Gap 10 BUN 23 H Creatinine 1.03 Est GFR ( Amer) > 60 Est GFR (Non-Af Amer) 55 L Glucose 126 H Calcium 8.4 Magnesium 1.9 09/04/18 05:24 NT-Pro-B Natriuret Pep 1470 H Assessment & Plan - Diagnosis (1) Chronic congestive heart failure Qualifiers: Heart failure type: diastolic Qualified Code(s): I50.32 - Chronic diastolic (congestive) heart failure Is this a current diagnosis for this admission?: Yes (2) Hyponatremia Is this a current diagnosis for this admission?: Yes (3) Nausea and vomiting Qualifiers: Vomiting type: bilious vomiting Qualified Code(s): R11.14 - Bilious vomiting Is this a current diagnosis for this admission?: Yes (4) Diabetes mellitus type 2 in obese Is this a current diagnosis for this admission?: Yes (5) Acute on chronic diastolic (congestive) heart failure Is this a current diagnosis for this admission?: Yes (6) Diabetic gastroparesis Is this a current diagnosis for this admission?: Yes - Plan Summary Plan Summary: Hyponatremia-I think her hyponatremia is related to volume overload and heart failure. She is currently on Bumex but she still looks fluid overloaded and she has 3+ lower extremity edema still. I discussed with patient about increasing Bumex she is agreeable. She is tells me that she took Lasix and it did not work for her and the Bumex is helping. Acute on chronic diastolic congestive heart failure-she seems to be fluid overloaded and has 3+ edema of the lower extremities. Her most recent echocardiogram from earlier this year within the last 6 months showed normal EF with diastolic dysfunction. At this time she is currently on Bumex 1 mg twice daily-I have discussed with patient by increasing it to 2 mg twice daily. Due to this fact I have discussed with patient about lowering her hypertension medications. At first she was very upset that I was changing her medications but she understands that her blood pressure may drop somewhat with the Bumex and hence we need to compensate with lowering her other hypertensive medications. After explanation patient is agreeable with this plan. Nausea and vomiting-she underwent EGD and colonoscopy today. I have not spoken with the GI physician at this time. I did however read his postop note-he has taken multiple biopsies and also noted possible gastroparesis during his EGD procedure. I spoken to patient about his diagnosis as she had asked me about her results. I have offered patient Reglan for her suspected gastroparesis and she is agreeable to try it. I have discussed with and counseled about diet/ lifestyle modifications if she has gastroparesis. Hypertension-patient is on multiple different antihypertensives. I have asked her if her PCP has worked her up worse secondary hypertension and she tells me they have not. At this time I have decreased and was her antihypertensive since I am increasing her Bumex dose. I have decreased her lisinopril and her hydralazine at this time. I have also counseled patient and advised her to follow-up with her PCP to work her up for secondary hypertension such as renal artery stenosis and catecholamine related hypertension. Diabetes mellitus-continue with Lantus and sliding scale insulin.
[2018-09-07] MEDS: METOCLOPRAMIDE HCL 10 MG TABLET PO SCH ×2 (17:09→23:09)
[2018-09-07] MEDS: ATORVASTATIN CALCIUM 40 MG TABLET PO SCH (21:22)
[2018-09-07] MEDS: INSULIN GLARGINE,HUM.REC.ANLOG 300 UNIT/3 ML INSULN.PEN SUBCUT SCH (21:22)
[2018-09-08] MEDS: GABAPENTIN 300 MG CAPSULE PO SCH ×3 (06:49→22:13)
[2018-09-08] MEDS: HYDRALAZINE HCL 25 MG TABLET PO SCH ×3 (06:49→22:13)
[2018-09-08] MEDS: LANSOPRAZOLE 30 MG TAB.RAP.DR PO SCH (06:49)
[2018-09-08] MEDS: METOCLOPRAMIDE HCL 10 MG TABLET PO SCH ×4 (06:50→23:48)
[2018-09-08] MEDS: ONDANSETRON 4 MG TAB.RAPDIS PO PRN (07:09)
[2018-09-08 08:18] LABS: ANION GAP 10 (5-19); BLOOD UREA NITROGEN 29 mg/dL (7-20); CALCIUM 8.5 mg/dL (8.4-10.2); CARBON DIOXIDE 25 mmol/L (22-30); CHLORIDE 95 mmol/L (98-107); GLUCOSE 141 mg/dL (75-110); POTASSIUM 4.4 mmol/L (3.6-5.0); SODIUM 130.3 mmol/L (137-145)
[2018-09-08] MEDS: HYDROCODONE/ACETAMINOPHEN 10-325 MG TABLET PO PRN ×3 (08:52→21:18)
[2018-09-08] MEDS: SPIRONOLACTONE 25 MG TABLET PO SCH (09:28)
[2018-09-08] MEDS: LISINOPRIL 10 MG TABLET PO SCH (09:29)
[2018-09-08] MEDS: BUMETANIDE 1 MG TABLET PO SCH ×2 (09:29→17:37)
[2018-09-08] MEDS: ASPIRIN 81 MG TABLET, ENT COATED PO SCH (09:29)
[2018-09-08] MEDS: ENOXAPARIN SODIUM INJ 40 MG/0.4 ML DISP.SYRIN SUBCUT SCH (09:29)
[2018-09-08] MEDS: NEBIVOLOL HCL 10 MG TABLET PO SCH (09:29)
[2018-09-08] MEDS: ISOSORBIDE DINITRATE 20 MG TABLET PO SCH (09:29)
[2018-09-08] MEDS ORDERED: LISINOPRIL 10 MG TABLET PO SCH (10:00)
--- NOTE | 2018-09-08 14:08 | PDOC PROGRESS REPORT ---
Subjective Progress Note for:: 09/08/18 - Seen on rounds this morning Subjective:: Spoke with patient's morning and she is worried about her blood pressure which is elevated. But she has not received her morning antihypertensives. Spoke with patient about her care. She is currently on a higher dose of Bumex to diurese her a little bit before discharge. She does have grade 2/4 diastolic dysfunction per echo results a few months ago. This morning she has absolutely no complaints to me besides wanting to go home because she is planning to go to [place] to visit her mother in 3 days. She denies chest pain, shortness of breath , bowel pain, nausea or vomiting. Reason For Visit: HYPONATREMIA Physical Exam Vital Signs: Temp Pulse Resp BP Pulse Ox 97.9 F 69 16 141/49 H 99 09/08/18 11:23 09/08/18 11:23 09/08/18 11:23 09/08/18 11:23 09/08/18 11:23 Intake & Output 09/07/18 09/08/18 09/09/18 06:59 06:59 06:59 Intake Total 1796 1738 Output Total 1999 2150 Balance -204 -412 Weight 185 lb 13.595 oz 185 lb 3.013 oz General appearance: PRESENT: no acute distress Head exam: PRESENT: atraumatic, normocephalic Eye exam: PRESENT: EOMI. ABSENT: conjunctival injection, scleral icterus Ear exam: PRESENT: normal external ear exam Mouth exam: PRESENT: tongue midline Neck exam: ABSENT: tracheal deviation Respiratory exam: PRESENT: clear to auscultation joshua, symmetrical Cardiovascular exam: PRESENT: +S1, +S2 Pulses: PRESENT: +2 pedal pulses bilateral GI/Abdominal exam: PRESENT: normal bowel sounds, soft. ABSENT: tenderness Extremities exam: PRESENT: other - Bilateral lower extremity edema-improved since yesterday. Still 2+ at the ankle and beaulieu. I did not appreciate any edema of the thighs of the hips today. Musculoskeletal exam: ABSENT: tenderness Neurological exam: PRESENT: alert, awake, oriented to person, oriented to place , oriented to time, oriented to situation, CN II-XII grossly intact Skin exam: PRESENT: dry, warm Results Laboratory Results: 09/07/18 08:45 09/08/18 05:23 09/08/18 09/08/18 05:23 05:23 Sodium 130.3 L Potassium 4.4 Chloride 95 L Carbon Dioxide 25 Anion Gap 10 BUN 29 H Creatinine 1.01 Est GFR ( Amer) > 60 Est GFR (Non-Af Amer) 57 L Glucose 141 H Calcium 8.5 Magnesium 1.8 Free T4 1.89 09/04/18 05:24 NT-Pro-B Natriuret Pep 1470 H Assessment & Plan - Diagnosis (1) Chronic congestive heart failure Qualifiers: Heart failure type: diastolic Qualified Code(s): I50.32 - Chronic diastolic (congestive) heart failure Is this a current diagnosis for this admission?: Yes (2) Hyponatremia Is this a current diagnosis for this admission?: Yes (3) Nausea and vomiting Qualifiers: Vomiting type: bilious vomiting Qualified Code(s): R11.14 - Bilious vomiting Is this a current diagnosis for this admission?: Yes (4) Diabetes mellitus type 2 in obese Is this a current diagnosis for this admission?: Yes (5) Acute on chronic diastolic (congestive) heart failure Is this a current diagnosis for this admission?: Yes (6) Diabetic gastroparesis Is this a current diagnosis for this admission?: Yes - Plan Summary Plan Summary: Hyponatremia-I think her hyponatremia is related to volume overload and heart failure. Normally at home she is on Bumex 1 mg twice a day. I have increased that to 2 mg twice a day from 09/07/18. Her edema has come down and so has her hyponatremia improved. I think another 1-2 days of diuresis will improve her sodium. We can return her to 1 mg twice daily upon discharge. Acute on chronic diastolic congestive heart failure-her lower extremity edema has improved today. When you talk to patient she seems to imply that her edema is still worse although it is better today than it was yesterday. Her most recent echocardiogram but in the last 6 months showed normal EF with grade 2-4 diastolic dysfunction. At home she is on Bumex 1 mg twice daily and at this time I have increased to 2 mg twice daily to aggressively diurese her. 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 Nausea and vomiting-on Reglan every 6 hours. Started during this admission. She underwent EGD and colonoscopy during this admission. I have not spoken with the GI physician at this time. I did however read his postop note-he has taken multiple biopsies and also noted possible gastroparesis during in his EGD procedure note. I spoken to patient about his diagnosis as she had asked me about her results. I have offered patient Reglan for her suspected gastroparesis and she is agreeable to try it-currently she had no complaints to me but it is too early to tell.. I have discussed with and counseled about diet /lifestyle modifications if she has gastroparesis. Patient was scheduled to have outpatient colonoscopy and EGD next week but when she went for her preop labs she was found to have hyponatremia hence sent to the hospital for admission. While she was admitted it was decided that she will get her colonoscopy and EGD. Hypertension-patient is on multiple different antihypertensives. I have asked her if her PCP has worked her up worse secondary hypertension and she tells me they have not. At this time I have decreased her antihypertensive since I am increasing her Bumex dose. I have decreased her lisinopril and her hydralazine at this time. I have also counseled patient and advised her to follow-up with her PCP to work her up for secondary hypertension such as renal artery stenosis and catecholamine related hypertension. I think if we return her back to 1 mg Bumex twice daily dosing on discharge then we can turn her antihypertensives back to her home medication doses. At this time her BP is stable. Diabetes mellitus-continue with Lantus and sliding scale insulin.
[2018-09-08] MEDS ORDERED: HYDRALAZINE HCL INJ/PF 20 MG/1 ML SDV IV ONE (21:15)
[2018-09-08] MEDS: ATORVASTATIN CALCIUM 40 MG TABLET PO SCH (22:13)
[2018-09-08] MEDS: INSULIN GLARGINE,HUM.REC.ANLOG 300 UNIT/3 ML INSULN.PEN SUBCUT SCH (22:14)
[2018-09-09 05:36] LABS: ANION GAP 12 (5-19); BLOOD UREA NITROGEN 32 mg/dL (7-20); CALCIUM 8.5 mg/dL (8.4-10.2); CARBON DIOXIDE 26 mmol/L (22-30); CHLORIDE 96 mmol/L (98-107); GLUCOSE 153 mg/dL (75-110); POTASSIUM 4.8 mmol/L (3.6-5.0); SODIUM 133.7 mmol/L (137-145)
[2018-09-09] MEDS: GABAPENTIN 300 MG CAPSULE PO SCH ×3 (05:42→21:35)
[2018-09-09] MEDS: LANSOPRAZOLE 30 MG TAB.RAP.DR PO SCH (05:42)
[2018-09-09] MEDS: HYDRALAZINE HCL 25 MG TABLET PO SCH ×3 (05:42→21:35)
[2018-09-09] MEDS: METOCLOPRAMIDE HCL 10 MG TABLET PO SCH ×3 (05:42→17:13)
[2018-09-09] MEDS: INSULIN LISPRO 100 UNIT/ML 3 ML VIAL SUBCUT PRN ×2 (08:03→12:35)
[2018-09-09] MEDS: NEBIVOLOL HCL 10 MG TABLET PO SCH (09:50)
[2018-09-09] MEDS: HYDRALAZINE HCL INJ/PF 20 MG/1 ML SDV IV PRN ×2 (09:50→17:13)
[2018-09-09] MEDS: ASPIRIN 81 MG TABLET, ENT COATED PO SCH (09:50)
[2018-09-09] MEDS: ISOSORBIDE DINITRATE 20 MG TABLET PO SCH (09:50)
[2018-09-09] MEDS: BUMETANIDE 1 MG TABLET PO SCH (09:51)
[2018-09-09] MEDS: LISINOPRIL 10 MG TABLET PO SCH (09:51)
[2018-09-09] MEDS: SPIRONOLACTONE 25 MG TABLET PO SCH (09:51)
[2018-09-09] MEDS: ENOXAPARIN SODIUM INJ 40 MG/0.4 ML DISP.SYRIN SUBCUT SCH (09:52)
[2018-09-09] MEDS: HYDROCODONE/ACETAMINOPHEN 10-325 MG TABLET PO PRN ×2 (15:31→21:35)
--- NOTE | 2018-09-09 16:20 | PDOC PROGRESS REPORT ---
Subjective Progress Note for:: 09/09/18 Subjective:: No adverse events overnight. No new complaints. Her chief concern is that she just feels tired all the time. She denies any bleeding of any sort. Her urine output has been excellent. No shortness of breath. Reason For Visit: HYPONATREMIA Physical Exam Vital Signs: Temp Pulse Resp BP Pulse Ox 98.5 F 74 12 160/57 H 94 09/09/18 11:23 09/09/18 11:23 09/09/18 11:23 09/09/18 11:23 09/09/18 11:23 Intake & Output 09/08/18 09/09/18 09/10/18 06:59 06:59 06:59 Intake Total 1738 1458 Output Total 2150 2350 Balance -412 -892 Weight 84 kg 82.1 kg 82.1 kg General appearance: PRESENT: no acute distress, pale, looks tired Respiratory exam: PRESENT: clear to auscultation joshua, symmetrical Cardiovascular exam: PRESENT: +S1, +S2 Pulses: PRESENT: +2 pedal pulses bilateral GI/Abdominal exam: PRESENT: normal bowel sounds, soft. ABSENT: tenderness Extremities exam: PRESENT: other - Bilateral lower extremity edema-1+ Musculoskeletal exam: ABSENT: tenderness Neurological exam: PRESENT: alert, awake, oriented to person, oriented to place , oriented to time, oriented to situation Skin exam: PRESENT: dry, warm Results Laboratory Results: 09/07/18 08:45 09/09/18 04:15 09/09/18 04:15 Sodium 133.7 L Potassium 4.8 Chloride 96 L Carbon Dioxide 26 Anion Gap 12 BUN 32 H Creatinine 1.28 H Est GFR ( Amer) 52 L Est GFR (Non-Af Amer) 43 L Glucose 153 H Calcium 8.5 09/04/18 05:24 NT-Pro-B Natriuret Pep 1470 H Assessment & Plan - Diagnosis (1) Acute on chronic diastolic (congestive) heart failure Is this a current diagnosis for this admission?: Yes Plan: Improving with diuresis. In cutting back her diuretic to her home dose because of her elevated creatinine and her clinical improvement. (2) Acute kidney injury Is this a current diagnosis for this admission?: Yes Plan: Probably as a result of her diuresis. We will hold tonight's dose of diuretic and then resume her home dose tomorrow morning. We will try to avoid giving her fluid because she was fluid overloaded when she was admitted. (3) Anemia Qualifiers: Anemia type: iron deficiency Iron deficiency anemia type: inadequate dietary iron intake Qualified Code(s): D50.8 - Other iron deficiency anemias Is this a current diagnosis for this admission?: Yes Plan: She has been low for some time and with her low MCV I suspect she is iron deficient. I am checking an iron panel. She has had no evidence of any blood loss of any sort and so I suspect that it is likely from inadequate dietary intake. - Time Time Spent with patient: 15-24 minutes
[2018-09-09 17:08] LABS: ABSOLUTE RETICS # 0.078 10^6/uL (0.028-0.122); RETICULOCYTE COUNT (AUTO) 2.37 % (0.66-2.85)
[2018-09-09 17:27] LABS: IRON(TIBC) 27.1 ug/dL (37-170)
[2018-09-09 18:34] LABS: FOLATE 6.88 ng/mL (>2.76)
[2018-09-09] MEDS: ATORVASTATIN CALCIUM 40 MG TABLET PO SCH (21:36)
[2018-09-09] MEDS: INSULIN GLARGINE,HUM.REC.ANLOG 300 UNIT/3 ML INSULN.PEN SUBCUT SCH (21:36)
[2018-09-10] MEDS: METOCLOPRAMIDE HCL 10 MG TABLET PO SCH ×3 (00:30→11:56)
[2018-09-10] MEDS: HYDROCODONE/ACETAMINOPHEN 10-325 MG TABLET PO PRN ×2 (03:39→09:36)
[2018-09-10] MEDS: GABAPENTIN 300 MG CAPSULE PO SCH ×2 (05:54→13:46)
[2018-09-10] MEDS: LANSOPRAZOLE 30 MG TAB.RAP.DR PO SCH (05:54)
[2018-09-10] MEDS: HYDRALAZINE HCL 25 MG TABLET PO SCH ×2 (05:54→13:46)
[2018-09-10] MEDS: HYDRALAZINE HCL INJ/PF 20 MG/1 ML SDV IV PRN (07:48)
[2018-09-10] MEDS: SPIRONOLACTONE 25 MG TABLET PO SCH (09:35)
[2018-09-10] MEDS: NEBIVOLOL HCL 10 MG TABLET PO SCH (09:35)
[2018-09-10] MEDS: ASPIRIN 81 MG TABLET, ENT COATED PO SCH (09:36)
[2018-09-10] MEDS: ISOSORBIDE DINITRATE 20 MG TABLET PO SCH (09:36)
[2018-09-10] MEDS: LISINOPRIL 10 MG TABLET PO SCH (09:36)
[2018-09-10] MEDS: ENOXAPARIN SODIUM INJ 40 MG/0.4 ML DISP.SYRIN SUBCUT SCH (09:38)
[2018-09-10] MEDS ORDERED: BUMETANIDE 1 MG TABLET PO SCH (10:00)
[2018-09-10 11:14] LABS: BLOOD UREA NITROGEN 37 mg/dL (7-20); CALCIUM 8.6 mg/dL (8.4-10.2); GLUCOSE 144 mg/dL (75-110)
[2018-09-10 11:15] LABS: ANION GAP 10 (5-19); CARBON DIOXIDE 25 mmol/L (22-30); CHLORIDE 98 mmol/L (98-107); POTASSIUM 4.6 mmol/L (3.6-5.0); SODIUM 133.4 mmol/L (137-145)
[2018-09-10] MEDS: INSULIN LISPRO 100 UNIT/ML 3 ML VIAL SUBCUT PRN (11:56)
[2018-09-10 13:00] VITALS: BP 134/48
[2018-09-10] MEDS: ONDANSETRON 4 MG TAB.RAPDIS PO PRN (14:36)
[2018-09-10] MEDS ORDERED: FERROUS SULFATE 325 MG TABLET PO SCH (18:00)
--- NOTE | 2018-09-10 18:14 | PDOC DISCHARGE SUMMARY ---
General - Admit/Disc Date/PCP Admission Date/Primary Care Provider: 09/03/18 16:56 AJITH JONES MD Discharge Date: 09/10/18 - Discharge Diagnosis (1) Acute on chronic diastolic (congestive) heart failure Is this a current diagnosis for this admission?: Yes Summary: Responded well to IV diuresis. (2) Acute kidney injury Is this a current diagnosis for this admission?: Yes Summary: Due to diuretic effect. We cut back on her diuretics and her creatinine trended back to normal. (3) Anemia Is this a current diagnosis for this admission?: Yes Summary: This is due to iron deficiency, likely due to inadequate oral intake. She has not had any episodes of bleeding. She will go home on iron supplement. - Additional Information Resuscitation Status: Full Code Discharge Diet: Diabetic Discharge Activity: Activity As Tolerated, Balance Activity w/Rest Home Medications: Aspirin [Adult Low Dose Aspirin EC] 81 mg PO DAILY 05/10/18 Atorvastatin Calcium [Lipitor 40 mg Tablet] 40 mg PO QHS 05/10/18 Gabapentin [Neurontin 300 mg Capsule] 300 mg PO TID 05/10/18 Hydrocodone/Acetaminophen [Bethany 10-325 mg Tablet] 1 tab PO Q6 PRN 05/10/18 Insulin Glargine,Hum.rec.anlog [Lantus Solostar] 8 units SQ QHS 05/10/18 Ipratropium [place] [Atrovent 0.06% Nasal [place]] 1 spray NASL QIDP PRN 05/10/18 Lisinopril [Zestril] 40 mg PO DAILY 05/10/18 Nebivolol HCl [Bystolic] 20 mg PO DAILY 05/10/18 Ondansetron HCl [Zofran 4 mg Tablet] 4 mg PO Q6HP PRN 05/10/18 Alendronate Sodium [Fosamax] 70 mg PO ASDIR PRN 05/25/18 Amlodipine Besylate [Norvasc 5 mg Tablet] 5 mg PO DAILY #30 tablet 05/27/18 Bumetanide [Bumex 2 mg Tablet] 1 mg PO BID 09/02/18 Hydralazine HCl [Apresoline 25 mg Tablet] 3 tab PO TID 09/02/18 Insulin Lispro [Humalog Insulin (Lispro) 100 unit/mL] 0 unit SUBCUT .SLD SCALE 09/02/18 Omeprazole 40 mg PO DAILY 09/02/18 Spironolactone 25 mg PO DAILY 09/02/18 Isosorbide Dinitrate [Isosorbide Dinitrate ER] 40 mg PO DAILY 09/03/18 Ferrous Sulfate [Feosol 325 mg Tablet] 325 mg PO BIDPCBS tablet 09/10/18 History of Present Illness History of Present Illness: JASMIN MURDOCK is a 58 year old female who was going to undergo endoscopy today. She was having a colonoscopy and gastroduodenoscopy for intractable vomiting with chronic nausea. She has been suffering with this condition for many months. Her appetite is decreased. Believe she has lost weight. She has been feeling quite poorly in general. Starting last evening she began to feel cold to the point where she is unable to get warm. Preoperative blood work revealed a sodium of 120. He was called to admit the patient. Hospital Course Hospital Course: It was determined that her sodium was low due to a heart failure exacerbation. She was put on IV diuretics and her sodium level came up as she got rid of free water. This went on for several days. Her creatinine elevated a little bit only de-escalate her diuretic her creatinine trended back to normal. She was also found to be anemic and it was determined that this was due to iron deficiency. Her oral intake of foods that would help replenish her iron was not very good at all. She will be placed on iron supplement. Her labs and examination were reassuring and she was discharged in good condition. Physical Exam Vital Signs: Temp Pulse Resp BP Pulse Ox 98.5 F 78 14 134/48 H 98 09/10/18 13:57 09/10/18 13:57 09/10/18 13:57 09/10/18 13:57 09/10/18 13:57 Intake & Output 09/09/18 09/10/18 09/11/18 06:59 06:59 06:59 Intake Total 1458 1318 Output Total 2350 2800 Balance -892 -1482 Weight 82.1 kg 83 kg General appearance: PRESENT: no acute distress, pale, looks tired Respiratory exam: PRESENT: clear to auscultation joshua, symmetrical Cardiovascular exam: PRESENT: +S1, +S2 Pulses: PRESENT: +2 pedal pulses bilateral GI/Abdominal exam: PRESENT: normal bowel sounds, soft. ABSENT: tenderness Extremities exam: PRESENT: other - Bilateral lower extremity edema-1+ Musculoskeletal exam: ABSENT: tenderness Neurological exam: PRESENT: alert, awake, oriented to person, oriented to place , oriented to time, oriented to situation Skin exam: PRESENT: dry, warm Results Laboratory Results: 09/07/18 08:45 09/10/18 09:17 09/09/18 09/10/18 16:40 09:17 Sodium 133.4 L Potassium 4.6 Chloride 98 Carbon Dioxide 25 Anion Gap 10 BUN 37 H Creatinine 1.16 Est GFR ( Amer) 58 L Est GFR (Non-Af Amer) 48 L Glucose 144 H Calcium 8.6 Iron 27.1 L TIBC 259 % Saturation 10 Ferritin 52.10 Vitamin B12 520.0 Folate 6.88 09/04/18 05:24 NT-Pro-B Natriuret Pep 1470 H Qualifiers - * PATIENT BEING DISCHARGED WITH ANY OF THE FOLLOWING DIAGNOSIS: Heart Failure HF Pt being discharged on ACEI for LVEF less than 40%?: No Reason(s) for not prescribing ACEI:: Not indicated HF Pt being discharged on ARBS for LVEF less than 40%?: No Reason(s) for not prescribing ARBS:: Not indicated HF Pt with Afib discharged with Warfarin?: No Reason(s) for not prescribing Warfarin:: Not indicated HF Pt discharged on evidence-based Beta Pauline:: Yes
== END 2018-09-10 14:45 | disposition home or self-care (01) | DRG 640 ==
LOC: OROUT 11:52 → 4S 16:56
PROVIDERS: ADMIT Internal Medicine; ATTEND Internal Medicine
PROC: 0DBL8ZX Excision of Transverse Colon, Via Natural or Artificial Opening Endoscopic, Diagnostic (ICD-10-PCS; 2018-09-06)
PROC: 0DB78ZX Excision of Stomach, Pylorus, Via Natural or Artificial Opening Endoscopic, Diagnostic (ICD-10-PCS; principal; 2018-09-06 12:00)
PROC: 0DBH8ZX Excision of Cecum, Via Natural or Artificial Opening Endoscopic, Diagnostic (ICD-10-PCS; 2018-09-06 12:00)
DX: E87.1 Hypo-osmolality and hyponatremia (principal); I50.33 Acute on chronic diastolic (congestive) heart failure; N17.9 Acute kidney failure, unspecified; I13.0 Hypertensive heart and chronic kidney disease with heart failure and stage 1 through stage 4 chronic kidney disease, or unspecified chronic kidney disease; N18.4 Chronic kidney disease, stage 4 (severe); D50.9 Iron deficiency anemia, unspecified; I08.0 Rheumatic disorders of both mitral and aortic valves; K21.9 Gastro-esophageal reflux disease without esophagitis; M47.9 Spondylosis, unspecified; E11.22 Type 2 diabetes mellitus with diabetic chronic kidney disease; E78.2 Mixed hyperlipidemia; D63.1 Anemia in chronic kidney disease; G47.00 Insomnia, unspecified; F41.9 Anxiety disorder, unspecified; K63.5 Polyp of colon; D12.0 Benign neoplasm of cecum; K64.8 Other hemorrhoids; K64.4 Residual hemorrhoidal skin tags; K29.70 Gastritis, unspecified, without bleeding; R11.14 Bilious vomiting; E11.43 Type 2 diabetes mellitus with diabetic autonomic (poly)neuropathy; K31.84 Gastroparesis; I25.2 Old myocardial infarction; Z60.2 Problems related to living alone; Z79.82 Long term (current) use of aspirin; Z79.4 Long term (current) use of insulin; Z79.899 Other long term (current) drug therapy; Z90.49 Acquired absence of other specified parts of digestive tract; Z87.891 Personal history of nicotine dependence; Z88.8 Allergy status to other drugs, medicaments and biological substances; Z82.49 Family history of ischemic heart disease and other diseases of the circulatory system; Z83.3 Family history of diabetes mellitus
CPT/HCPCS: 36415; 43239; 45385; 80048; 81001; 813; 82533; 82570; 82607; 82728; 82746; 82962; 83540; 83550; 83735; 83880; 83930; 83935; 84133; 84156; 84295; 84300; 84439; 84443; 85025; 85045; 88305; 88342; 93005; 93010; J0360; J1650; J1815; J2704; J3490; J7030; S0119

== ENCOUNTER 2018-09-28 19:35 | Inpatient (IN) | payer MEDICARE, OTHER ==
--- NOTE | 2018-09-28 20:28 | ER Document Report ---
ED Medical Screen (RME) - General Chief Complaint: Shortness Of Breath Stated Complaint: SHORTNESS OF BREATH Time Seen by Provider: 09/28/18 20:26 Notes: 58-year-old female with a history of CHF that comes to the emergency department for chief complaint of lower extremity swelling, weight gain, and increasing difficulty breathing with dyspnea on exertion. Taking Bumex, reports compliant with medication. TRAVEL OUTSIDE OF THE [place] IN LAST 30 DAYS: No - Related Data Allergies/Adverse Reactions: metaxalone [From Skelaxin] Allergy (Intermediate, Verified 09/03/18 12:13) Hives metformin Allergy (Intermediate, Verified 09/03/18 12:13) MUSCLE PAIN Past Medical History - Social History Frequency of alcohol use: None Drug Abuse: None - Past Medical History Cardiac Medical History: Reports: Hx Congestive Heart Failure, Hx Hypertension, Hx Heart Murmur Denies: Hx Atrial Fibrillation, Hx Coronary Artery Disease Comment Only: Hx Heart Attack - CHF, AORTIC VALVE REGURG, MITRAL VALVE REGURG Pulmonary Medical History: Denies: Hx Asthma, Hx Bronchitis, Hx COPD, Hx Pneumonia Neurological Medical History: Denies: Hx Cerebrovascular Accident, Hx Seizures Endocrine Medical History: Reports: Hx Diabetes Mellitus Type 2 Renal/ Medical History: Denies: Hx Peritoneal Dialysis GI Medical History: Reports: Hx Gastroesophageal Reflux Disease Musculoskeltal Medical History: Reports Hx Arthritis - BACK Psychiatric Medical History: Denies: Hx Depression Past Surgical History: Reports: Hx Abdominal Surgery, Hx Cholecystectomy, Hx Orthopedic Surgery - back x3, Hx Tonsillectomy, Hx Tubal Ligation, Other - Ears - Immunizations Hx Diphtheria, Pertussis, Tetanus Vaccination: - UNSURE History of Influenza Vaccine for 07/2017 - 11/2017 Season: Yes Influenza Administration Date for 07/2017 - 11/2017 Season: 07/01/18 Physical Exam - Vital signs Vitals: Temp Pulse Resp BP Pulse Ox 98.1 F 86 20 175/59 H 95 09/28/18 19:52 09/28/18 19:52 09/28/18 19:52 09/28/18 19:52 09/28/18 19:52 - Respiratory Respiratory status: No respiratory distress Breath sounds: No: Decreased air movement, Nonproductive cough, Rales, Wheezing - Extremities General upper extremity: Edema - Bilateral lower extremity edema, 2+ Course - Vital Signs Vital signs: Temp Pulse Resp BP Pulse Ox 98.1 F 86 20 175/59 H 95 09/28/18 19:52 09/28/18 20:23 09/28/18 19:52 09/28/18 19:52 09/28/18 19:52 Doctor's Discharge - Discharge Referrals: AJITH JONES MD [Primary Care Provider] - Follow up as needed
--- NOTE | 2018-09-28 20:28 | EKG REPORT ---
SEVERITY:- ABNORMAL ECG - SINUS RHYTHM ATRIAL PREMATURE COMPLEX ANTERIOR INFARCT, OLD : Confirmed by: Candis Schofield 28-Sep-2018 20:27:53
--- NOTE | 2018-09-28 21:18 | RADIOLOGY REPORT (SQ) ---
CLINICAL HISTORY: shortness of breath COMPARISON: None. 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 There are mild likely chronic interstitial changes throughout both lungs. There is bibasilar atelectasis. There are moderate bilateral pleural effusions. There is no pneumothorax. There are no acute osseous findings. IMPRESSION: Bilateral pleural effusions.
[2018-09-28 23:31] LABS: ALANINE AMINOTRANSFERASE 16 U/L (9-52); ALBUMIN 3.2 g/dL (3.5-5.0); ALKALINE PHOSPHATASE 100 U/L (38-126); ANION GAP 7 (5-19); ASPARTATE AMINO TRANSFERASE 19 U/L (14-36); BILIRUBIN,DIRECT 0.3 mg/dL (0.0-0.4); BILIRUBIN,TOTAL 0.3 mg/dL (0.2-1.3); BLOOD UREA NITROGEN 28 mg/dL (7-20); CALCIUM 8.8 mg/dL (8.4-10.2); CARBON DIOXIDE 22 mmol/L (22-30); CHLORIDE 110 mmol/L (98-107); GLUCOSE 238 mg/dL (75-110); POTASSIUM 4.9 mmol/L (3.6-5.0); SODIUM 139.2 mmol/L (137-145); TOTAL PROTEIN 5.6 g/dL (6.3-8.2)
[2018-09-28 23:43] LABS: NT PRO BNP 4310 pg/mL (5-900)
[2018-09-28 23:45] LABS: TROPONIN I < 0.012 ng/mL
[2018-09-28 23:58] LABS: ABSOLUTE BASOPHILS # (AUTO) 0.1 10^3/uL (0.0-0.2); ABSOLUTE EOSINOPHILS # (AUTO) 0.1 10^3/uL (0.0-0.6); ABSOLUTE LYMPHOCYTES (AUTO) 0.8 10^3/uL (0.5-4.7); ABSOLUTE MONOCYTES (AUTO) 0.6 10^3/uL (0.1-1.4); BASOPHILS % (AUTO) 0.8 % (0-2); EOSINOPHILS % (AUTO) 1.8 % (0-6); HEMATOCRIT 30.3 % (36.0-47.0); HEMOGLOBIN 10.5 g/dL (12.0-15.5); LYMPHOCYTES % (AUTO) 10.3 % (13-45); MEAN CORPUSCULAR HEMOGLOBIN 28.3 pg (27.0-33.4); MEAN CORPUSCULAR HGB CONC 34.7 g/dL (32.0-36.0); MONOCYTES % (AUTO) 8.1 % (3-13); PLATELET COUNT 218 10^3/uL (150-450); RED BLOOD COUNT 3.72 10^6/uL (3.72-5.28); TOTAL CELLS COUNTED % (AUTO) 100 %; WHITE BLOOD COUNT 7.6 10^3/uL (4.0-10.5)
[2018-09-29 00:04] LABS: MEAN CORPUSCULAR VOLUME 82 fl (80-97)
[2018-09-29] MEDS ORDERED: FUROSEMIDE INJ/PF 40 MG/4 ML SDV IV ONE (00:53)
--- NOTE | 2018-09-29 00:58 | ER Document Report ---
ED General - General Chief Complaint: Shortness Of Breath Stated Complaint: SHORTNESS OF BREATH Time Seen by Provider: 09/28/18 20:26 Notes: Patient is a 58-year-old female with a past medical history of congestive heart failure with multiple hospitalizations secondary to volume overload and pleural effusions, diabetes, chronic pain, presents with 3-4 days of progressively worsening swelling to the bilateral lower extremities as well as increased shortness of breath. The patient reports that she has been taking her Bumex 1 mg twice daily as directed but that this has not been effective and she has continued to gain weight and having increased edema and shortness of breath. She also has associated orthopnea. States this feels very similar to when she has required hospitalization in the past for volume overload. She denies fever or constitutional symptoms. No chest pain. Denies dietary indiscretions. States that she has gained 15 pounds in weight from her dry weight. TRAVEL OUTSIDE OF THE [place] IN LAST 30 DAYS: No - Related Data Allergies/Adverse Reactions: metaxalone [From Skelaxin] Allergy (Intermediate, Verified 09/03/18 12:13) Hives metformin Allergy (Intermediate, Verified 09/03/18 12:13) MUSCLE PAIN Past Medical History - General Information source: Patient - Social History Smoking Status: Never Smoker Frequency of alcohol use: None Drug Abuse: None Lives with: Alone Family History: CAD, Hypertension Patient has suicidal ideation: No Patient has homicidal ideation: No - Past Medical History Cardiac Medical History: Reports: Hx Congestive Heart Failure, Hx Hypertension, Hx Heart Murmur Denies: Hx Atrial Fibrillation, Hx Coronary Artery Disease Comment Only: Hx Heart Attack - CHF, AORTIC VALVE REGURG, MITRAL VALVE REGURG Pulmonary Medical History: Denies: Hx Asthma, Hx Bronchitis, Hx COPD, Hx Pneumonia Neurological Medical History: Denies: Hx Cerebrovascular Accident, Hx Seizures Endocrine Medical History: Reports: Hx Diabetes Mellitus Type 2 Renal/ Medical History: Denies: Hx Peritoneal Dialysis GI Medical History: Reports: Hx Gastroesophageal Reflux Disease Musculoskeletal Medical History: Reports Hx Arthritis - BACK Psychiatric Medical History: Denies: Hx Depression Past Surgical History: Reports: Hx Abdominal Surgery, Hx Cholecystectomy, Hx Orthopedic Surgery - back x3, Hx Tonsillectomy, Hx Tubal Ligation, Other - Ears - Immunizations Hx Diphtheria, Pertussis, Tetanus Vaccination: - UNSURE Review of Systems - Review of Systems Notes: Constitutional: Negative for fever. HENT: Negative for sore throat. Eyes: Negative for visual changes. Cardiovascular: Negative for chest pain. Respiratory: Positive for shortness of breath. Gastrointestinal: Negative for abdominal pain, vomiting or diarrhea. Genitourinary: Negative for dysuria. Musculoskeletal: Positive for bilateral lower extremity edema Skin: Negative for rash. Neurological: Negative for headaches, weakness or numbness. 10 point ROS negative except as marked above and in HPI. Physical Exam - Vital signs Vitals: Temp Pulse Resp BP Pulse Ox 98.1 F 86 20 175/59 H 95 09/28/18 19:52 09/28/18 19:52 09/28/18 19:52 09/28/18 19:52 09/28/18 19:52 Interpretation: Hypertensive Notes: PHYSICAL EXAMINATION: GENERAL: Appears moderately uncomfortable but in no acute distress HEAD: Atraumatic, normocephalic. EYES: Pupils equal round and reactive to light, extraocular movements intact, sclera anicteric, conjunctiva are normal. ENT: nares patent, oropharynx clear without exudates. Moist mucous membranes. NECK: Normal range of motion, supple without lymphadenopathy LUNGS: Crackles at the bases bilaterally. Mild tachypnea. Patient does appear somewhat winded while speaking. No respiratory distress. HEART: Regular rate and rhythm without murmurs ABDOMEN: Soft, nontender, normoactive bowel sounds. No guarding, no rebound. No masses appreciated. EXTREMITIES: Normal range of motion, 4+ pitting edema in the bilateral lower extremities is equal and symmetric. No cyanosis. NEUROLOGICAL: No focal neurological deficits. Moves all extremities spontaneously and on command. PSYCH: Anxious, intermittently tearful SKIN: Warm, Dry, normal turgor, no rashes or lesions noted. Course - Re-evaluation Re-evalutation: 09/29/18 00:56 Patient presents with what appears to be volume overload in the setting of diastolic heart failure despite taking Bumex 1 mg twice daily. She has had a 6 kg weight gain since time of discharge, BNP is also increased from 1500 to the low 4000 range. She is also mildly hypoxemic, 89% on room air, 95 nasal cannula. Does not have a baseline oxygen dependence. Chest x-ray does show bilateral pleural effusions similar to what she has had in the past although patient is cleared note that she does not have this when she is not hospitalized. Troponin normal. Other labs otherwise unremarkable. Patient has been given 80 mg of IV furosemide and I discussed with the hospitalist for admission as the patient will require IV diuresis given her volume overload and hypoxemia. He will admit the patient to telemetry - Vital Signs Vital signs: Temp Pulse Resp BP Pulse Ox 98.1 F 98 18 179/73 H 94 09/29/18 02:47 09/29/18 02:47 09/29/18 02:47 09/29/18 02:47 09/29/18 02:47 - Laboratory Result Diagrams: 09/28/18 23:45 09/28/18 22:55 Laboratory results interpreted by me: 09/28/18 09/28/18 09/28/18 22:55 22:55 23:45 Hgb 10.5 L Hct 30.3 L RDW 16.0 H Seg Neutrophils % 79.0 H Lymphocytes % 10.3 L Chloride 110 H BUN 28 H Est GFR (Non-Af Amer) 49 L Glucose 238 H NT-Pro-B Natriuret Pep 4310 H Total Protein 5.6 L Albumin 3.2 L - Diagnostic Test Radiology reviewed: Image reviewed, Reports reviewed Radiology results interpreted by me: 09/29/18 00:57 Chest x-ray: Bilateral pleural effusions - EKG Interpretation by Me Additional EKG results interpreted by me: 09/29/18 00:57 Sinus rhythm, rate 89. No ST elevations or depressions. QTC is 448 Discharge - Discharge Clinical Impression: Bilateral lower extremity edema, Hypoxemia Volume overload Qualifiers: Hypervolemia type: unspecified Qualified Code(s): E87.70 - Fluid overload, unspecified Congestive heart failure Qualifiers: Heart failure type: diastolic Heart failure chronicity: acute on chronic Qualified Code(s): I50.33 - Acute on chronic diastolic (congestive) heart failure Condition: Fair Disposition: ADMITTED INPATIENT Admitting Provider: Hospitalist Unit Admitted: Telemetry
[2018-09-29] MEDS ORDERED: MAGNESIUM HYDROXIDE SUSP 30 ML UDCUP PO PRN (01:08)
[2018-09-29] MEDS ORDERED: ONDANSETRON HCL INJ/PF 4 MG/2 ML SDV IV PRN (01:08)
[2018-09-29] MEDS ORDERED: MAG HYDROX/AL HYDROX/SIMETH SUSP 30 ML UDCUP PO PRN (01:08)
[2018-09-29] MEDS ORDERED: MORPHINE SULFATE 10 MG/ML INJ IV PRN (01:14)
[2018-09-29] MEDS ORDERED: ACETAMINOPHEN 325 MG TABLET PO PRN (01:14)
[2018-09-29] MEDS ORDERED: NICOTINE 21 MG/24 HR PATCH.TD24 TD PRN (01:14)
[2018-09-29] MEDS ORDERED: INSULIN LISPRO 100 UNIT/ML 3 ML VIAL SUBCUT SCH (01:30)
[2018-09-29] MEDS ORDERED: ATORVASTATIN CALCIUM 40 MG TABLET PO ONE (01:45)
[2018-09-29] MEDS ORDERED: INSULIN GLARGINE,HUM.REC.ANLOG 300 UNIT/3 ML INSULN.PEN SUBCUT ONE ×2 (01:45→22:37)
[2018-09-29] MEDS: BUMETANIDE INJ/PF 1 MG/4 ML SDV IV SCH ×4 (01:53→21:48)
[2018-09-29] MEDS: HYDRALAZINE HCL INJ/PF 20 MG/1 ML SDV IV PRN (01:53)
[2018-09-29] MEDS: MORPHINE SULFATE 10 MG/ML INJ IV PRN ×4 (02:02→20:49)
[2018-09-29 02:32] LABS: CREATINE KINASE MB 2.27 ng/mL (<4.55); TROPONIN I < 0.012 ng/mL
[2018-09-29] MEDS ORDERED: INSULIN GLARGINE,HUM.REC.ANLOG 1,000 UNIT/10 ML UNIT SUBCUT ONE (02:58)
--- NOTE | 2018-09-29 05:03 | PDOC H&P ---
History of Present Illness Admission Date/PCP: 09/29/18 01:09 AJITH JONES MD Patient complains of: Dyspnea History of Present Illness: JASMIN MURDOCK is a 58 year old female who presented to the emergency room with a 1-day history of gradually worsening dyspnea and a one week history increasing swelling of her bilateral upper and lower extremities. She admits that her dyspnea has become present at rest and is of moderate severity. Her lower extremity swelling is severe and has been accompanied by a weight gain of approximately 15 pounds over the last week. She also has swelling in her hands and in her abdomen and lower back. She admits that she has had numerous similar episodes in the past with her congestive heart failure and she has not identif ied any aggravating or ameliorating factors for these acute episodes. In the emergency room she was found to be hypoxic and required supplemental oxygen to maintain an O2 saturation above 93%. She had negative cardiac enzymes and an EKG which showed no evidence of acute myocardial injury or ischemia. With these findings she was admitted to the hospital for further evaluation and treatment of her acute respiratory failure with hypoxia and acute on chronic diastolic congestive heart failure. Past Medical History Cardiac Medical History: Reports: Congestive Heart Failure, Hypertension, Heart Murmur, Other - CHF, AORTIC VALVE REGURG, MITRAL VALVE REGURG Denies: Atrial Fibrillation, Coronary Artery Disease, DVT, Pulmonary Embolism Pulmonary Medical History: Denies: Asthma, Bronchitis, Chronic Obstructive Pulmonary Disease (COPD), Intubation, Pneumonia, Respiratory Failure EENT Medical History: Reports: None Neurological Medical History: Denies: Multiple Sclerosis, Seizures Endocrine Medical History: Reports: Diabetes Mellitus Type 2 Denies: Diabetes Mellitus Type 1, Hyperthyroidism, Hypothyroidism Renal/ Medical History: Denies: Chronic Kidney Disease, Nephrolithiasis Malignancy Medical History: Reports: None GI Medical History: Reports: Gastroesophageal Reflux Disease Denies: Cirrhosis, Hepatitis Musculoskeltal Medical History: Reports: Arthritis - BACK Denies: Gout Skin Medical History: Denies: Eczema, Psoriasis Psychiatric Medical History: Denies: Alcohol Dependency, Depression, Substance Abuse, Tobacco Dependency Traumatic Medical History: Reports: None Hematology: Reports: Anemia Denies: Bleeding Tendencies Infectious Medical History: Reports: None Past Surgical History Past Surgical History: Reports: Cholecystectomy, Orthopedic Surgery - back x3, Tonsillectomy, Tubal Ligation, Other - Ears Social History Information Source: Patient Lives with: Alone Smoking Status: Never Smoker Frequency of Alcohol Use: None Hx Recreational Drug Use: No Drugs: None Hx Prescription Drug Abuse: No - Advance Directive Resuscitation Status: Full Code Surrogate healthcare decision maker:: Son Family History Family History: CAD, Hypertension Parental Family History Reviewed: Yes Children Family History Reviewed: No Sibling(s) Family History Reviewed.: Yes Medication/Allergy Home Medications: Atorvastatin Calcium [Lipitor 40 mg Tablet] 40 mg PO QHS 05/10/18 Gabapentin [Neurontin 300 mg Capsule] 300 mg PO TID 05/10/18 Hydrocodone/Acetaminophen [[place] 10-325 mg Tablet] 1 tab PO Q6 PRN 05/10/18 Insulin Glargine,Hum.rec.anlog [Lantus Solostar] 8 units SQ QHS 05/10/18 Lisinopril [Zestril] 40 mg PO DAILY 05/10/18 Ondansetron HCl [Zofran 4 mg Tablet] 4 mg PO Q6HP PRN 05/10/18 Alendronate Sodium [Fosamax] 70 mg PO ASDIR PRN 05/25/18 Bumetanide [Bumex 2 mg Tablet] 1 mg PO BID 09/02/18 Hydralazine HCl [Apresoline 25 mg Tablet] 3 tab PO TID 09/02/18 Insulin Lispro [Humalog Insulin (Lispro) 100 unit/mL] 0 unit SUBCUT .SLD SCALE 09/02/18 Omeprazole 40 mg PO DAILY 09/02/18 Spironolactone 25 mg PO DAILY 09/02/18 Isosorbide Dinitrate [Isosorbide Dinitrate ER] 30 mg PO DAILY 09/03/18 Amlodipine Besylate [Norvasc 5 mg Tablet] 10 mg PO DAILY 09/28/18 Nebivolol HCl [Bystolic 5 mg Tablet] 5 mg PO QAM 09/28/18 Ascorbic Acid [Vitamin C 500 mg Tablet] 2 tab PO DAILY 09/29/18 Cholecalciferol (Vitamin D3) [Vitamin D3 1000 Unit Tablet] 1,000 unit PO DAILY 09/29/18 Allergies/Adverse Reactions: metaxalone [From Skelaxin] Allergy (Intermediate, Verified 09/03/18 12:13) Hives metformin Allergy (Intermediate, Verified 09/03/18 12:13) MUSCLE PAIN Review of Systems Constitutional: ABSENT: chills, fever(s) Eyes: ABSENT: visual disturbances, other - Ocular pain Ears: ABSENT: hearing changes, other - Ear pain Nose, Mouth, and Throat: ABSENT: mouth pain, sore throat Cardiovascular: PRESENT: as per HPI, dyspnea on exertion, edema, orthropnea. ABSENT: chest pain, palpitations Respiratory: PRESENT: as per HPI, cough, dyspnea. ABSENT: hemoptysis, sputum Gastrointestinal: ABSENT: abdominal pain, constipation, diarrhea, nausea, vomiting Genitourinary: ABSENT: dysuria, hematuria Musculoskeletal: ABSENT: joint swelling, muscle weakness Integumentary: ABSENT: pruritus, rash Neurological: ABSENT: confusion, convulsions, memory loss Psychiatric: ABSENT: anxiety, depression Endocrine: ABSENT: cold intolerance, heat intolerance Hematologic/Lymphatic: ABSENT: easy bleeding, easy bruising Physical Exam Vital Signs: Temp Pulse Resp BP Pulse Ox 98.1 F 86 20 175/59 H 95 09/28/18 19:52 09/28/18 20:23 09/28/18 19:52 09/28/18 19:52 09/28/18 19:52 Intake & Output 09/27/18 09/28/18 09/29/18 23:59 23:59 23:59 Weight 69.8 kg General appearance: PRESENT: no acute distress, cooperative, other Head exam: PRESENT: atraumatic, normocephalic Eye exam: PRESENT: conjunctiva pink, EOMI. ABSENT: scleral icterus Ear exam: PRESENT: normal external ear exam. ABSENT: bleeding, drainage Mouth exam: PRESENT: dry mucosa, neck supple Neck exam: PRESENT: JVD - Bilateral. ABSENT: thyromegaly, tracheal deviation Respiratory exam: PRESENT: accessory muscle use, rales - Bibasilar, symmetrical, tachypnea Cardiovascular exam: PRESENT: diastolic murmur - Grade 2/6 systolic murmur heard best at the left sternal border, gallop - S4 gallop noted, RRR, systolic murmur - Grade 3/6 holosystolic murmur heard best at the apex with radiation to the left axilla. ABSENT: clicks, rubs Pulses: PRESENT: normal radial pulses, other - Dorsalis pedis pulses poorly palpable due to bilateral lower extremity edema Vascular exam: PRESENT: normal capillary refill. ABSENT: pallor GI/Abdominal exam: PRESENT: normal bowel sounds, soft Rectal exam: PRESENT: deferred Extremities exam: PRESENT: other - 3+ bilateral pitting edema to the distal thigh. Trace to 1+ edema of the bilateral hands and fingers. Trace to 1+ edema of the lower abdomen and presacral region. 1-2+ edema of the bilateral thighs.. ABSENT: joint swelling Musculoskeletal exam: ABSENT: deformity, dislocation Neurological exam: PRESENT: alert, oriented to person, oriented to place, oriented to time, oriented to situation, CN II-XII grossly intact. ABSENT: motor sensory deficit Psychiatric exam: PRESENT: appropriate affect, normal mood Skin exam: PRESENT: dry, intact, warm. ABSENT: jaundice, rash, urticaria Results Laboratory Results: 09/28/18 23:45 09/28/18 22:55 09/28/18 09/28/18 09/28/18 22:55 22:55 23:45 WBC Cancelled 7.6 RBC Cancelled 3.72 Hgb Cancelled 10.5 L Hct Cancelled 30.3 L MCV Cancelled 82 D MCH Cancelled 28.3 MCHC Cancelled 34.7 RDW Cancelled 16.0 H Plt Count Cancelled 218 Seg Neutrophils % Cancelled 79.0 H Lymphocytes % Cancelled 10.3 L Monocytes % Cancelled 8.1 Eosinophils % Cancelled 1.8 Basophils % Cancelled 0.8 Absolute Neutrophils Cancelled 6.0 Absolute Lymphocytes Cancelled 0.8 Absolute Monocytes Cancelled 0.6 Absolute Eosinophils Cancelled 0.1 Absolute Basophils Cancelled 0.1 Sodium 139.2 Potassium 4.9 Chloride 110 H Carbon Dioxide 22 Anion Gap 7 BUN 28 H Creatinine 1.14 Est GFR ( Amer) > 60 Est GFR (Non-Af Amer) 49 L Glucose 238 H Calcium 8.8 Total Bilirubin 0.3 AST 19 ALT 16 Alkaline Phosphatase 100 Total Protein 5.6 L Albumin 3.2 L 09/28/18 22:55 Troponin I < 0.012 NT-Pro-B Natriuret Pep 4310 H Impressions: Chest X-Ray 09/28/18 20:26 IMPRESSION: Bilateral pleural effusions. Assessment & Plan - Diagnosis (1) Acute respiratory failure with hypoxia Is this a current diagnosis for this admission?: Yes Plan: Patient will be maintained on supplemental oxygen as long as required for maintenance of her oxygen saturations satisfactory levels. Once she is able to maintain her oxygen saturation without supplemental oxygen it will be discontinued. (2) Acute on chronic diastolic CHF (congestive heart failure), NYHA class 2 Is this a current diagnosis for this admission?: Yes Plan: Patient will be admitted for IV diuretic therapy utilizing Bumex 2 mg every 8 hours as I feel it is imperative to treat her early anasarca before it worsens. Her congestive heart failure medical regiment will also be adjusted for optimization of heart failure control. Her Bystolic will be increased to 20 mg daily and her lisinopril will be reduced to 20 mg daily. She will be asked to discontinue gabapentin and amlodipine as both these medications can cause severe lower extremity swelling and her hydralazine will be used on a as needed basis for hypertension uncontrolled by other medications. (3) Diabetes mellitus type 2 in obese Is this a current diagnosis for this admission?: Yes Plan: Patient will be continued on her current diabetic regiment. Hemoglobin A1c will be evaluated to assess efficacy of her current therapy and adjustments will be made as needed. (4) Hypertension Qualifiers: Hypertension type: essential hypertension Qualified Code(s): I10 - Essential (primary) hypertension Is this a current diagnosis for this admission?: Yes Plan: Patient's hypertension will be treated in accordance with treatment of her congestive heart failure. Daily metabolic profiles will be obtained to evaluate adverse effects of therapy and blood pressure and other vital signs be monitored closely throughout her hospital course. - Time Time Spent: 30 to 50 Minutes Critical Time spent with patient: Less than 15 minutes Medications reviewed and adjusted accordingly: Yes Anticipated discharge: Home with Homehealth - Inpatient Certification Based on my medical assessment, after consideration of the patient's comorbidities, presenting symptoms, or acuity I expect that the services needed warrant INPATIENT care.: Yes I certify that my determination is in accordance with my understanding of Medicare's requirements for reasonable and necessary INPATIENT services [42 CFR 412.3e].: Yes Medical Necessity: Significant Comorbidiites Make Outpatient Treatment Too Risky, Need Close Monitoring Due to Risk of Patient Decompensation, Need For Continuous Telemetry Monitoring, Risk of Complication if Not Cared For in Hospital
[2018-09-29] MEDS: HEPARIN SOD (PORCINE) 5,000 UNIT/ML 1 ML SYRINGE SUBCUT SCH ×3 (05:15→21:49)
[2018-09-29] MEDS ORDERED: NEBIVOLOL HCL 5 MG TABLET PO SCH (08:00)
[2018-09-29 09:27] LABS: CREATINE KINASE MB 1.45 ng/mL (<4.55)
[2018-09-29 09:34] LABS: TROPONIN I < 0.012 ng/mL
[2018-09-29] MEDS ORDERED: LISINOPRIL 10 MG TABLET PO SCH (10:00)
[2018-09-29] MEDS ORDERED: ISOSORBIDE DINITRATE 10 MG TABLET PO SCH (10:00)
[2018-09-29] MEDS: ONDANSETRON 4 MG TAB.RAPDIS PO PRN (10:06)
[2018-09-29] MEDS: NEBIVOLOL HCL 10 MG TABLET PO SCH (10:09)
[2018-09-29] MEDS: FAMOTIDINE 20 MG TABLET PO SCH ×2 (10:11→21:49)
[2018-09-29] MEDS: SPIRONOLACTONE 25 MG TABLET PO SCH (10:11)
[2018-09-29] MEDS: DOCUSATE SODIUM 100 MG CAPSULE PO SCH (10:11)
[2018-09-29] MEDS ORDERED: (PENDING PHARMACY ID) (Ondansetron Hcl [Zofran 4 Mg Tablet] 4 MG) PO PRN (11:04)
[2018-09-29] MEDS ORDERED: ONDANSETRON 4 MG TAB.RAPDIS PO PRN (11:18)
--- NOTE | 2018-09-29 11:39 | PDOC PROGRESS REPORT ---
Subjective Progress Note for:: 09/29/18 Subjective:: 58-year-old female admitted with 1 day history of worsening shortness of breath and 1 week history of increasing bilateral lower leg swellings. No acute events in the last 24 hours. Pulse ox on 2 L is 94%. It is afebrile. Reason For Visit: HEART FAILURE Physical Exam Vital Signs: Temp Pulse Resp BP Pulse Ox 98.0 F 85 20 167/57 H 96 09/29/18 08:27 09/29/18 08:27 09/29/18 08:27 09/29/18 08:27 09/29/18 08:27 Intake & Output 09/28/18 09/29/18 09/30/18 06:59 06:59 06:59 Intake Total 240 Balance 240 Weight 73.4 kg General appearance: PRESENT: no acute distress Head exam: PRESENT: atraumatic Eye exam: PRESENT: PERRLA Mouth exam: PRESENT: moist Neck exam: PRESENT: JVD Respiratory exam: PRESENT: other - Decreased breath sounds bilaterally secondary to pleural effusions. Cardiovascular exam: PRESENT: RRR. ABSENT: diastolic murmur, rubs, systolic murmur GI/Abdominal exam: PRESENT: normal bowel sounds, soft. ABSENT: distended, guarding, mass, organolmegaly, rebound, tenderness Extremities exam: PRESENT: other - 3+ pedal edema. Neurological exam: PRESENT: alert, awake, oriented to person, oriented to place, oriented to time, oriented to situation, CN II-XII grossly intact. ABSENT: motor sensory deficit Psychiatric exam: PRESENT: appropriate affect, normal mood. ABSENT: homicidal ideation, suicidal ideation Results Laboratory Results: 09/28/18 23:45 09/28/18 22:55 09/28/18 09/28/18 09/28/18 22:55 22:55 23:45 WBC Cancelled 7.6 RBC Cancelled 3.72 Hgb Cancelled 10.5 L Hct Cancelled 30.3 L MCV Cancelled 82 D MCH Cancelled 28.3 MCHC Cancelled 34.7 RDW Cancelled 16.0 H Plt Count Cancelled 218 Seg Neutrophils % Cancelled 79.0 H Lymphocytes % Cancelled 10.3 L Monocytes % Cancelled 8.1 Eosinophils % Cancelled 1.8 Basophils % Cancelled 0.8 Absolute Neutrophils Cancelled 6.0 Absolute Lymphocytes Cancelled 0.8 Absolute Monocytes Cancelled 0.6 Absolute Eosinophils Cancelled 0.1 Absolute Basophils Cancelled 0.1 Sodium 139.2 Potassium 4.9 Chloride 110 H Carbon Dioxide 22 Anion Gap 7 BUN 28 H Creatinine 1.14 Est GFR ( Amer) > 60 Est GFR (Non-Af Amer) 49 L Glucose 238 H Calcium 8.8 Total Bilirubin 0.3 AST 19 ALT 16 Alkaline Phosphatase 100 Total Protein 5.6 L Albumin 3.2 L 09/28/18 09/29/18 09/29/18 22:55 01:52 01:52 Creatine Kinase 197 H CK-MB (CK-2) 2.27 Troponin I < 0.012 < 0.012 NT-Pro-B Natriuret Pep 4310 H 09/29/18 09/29/18 07:58 07:58 Creatine Kinase 149 H CK-MB (CK-2) 1.45 Troponin I < 0.012 NT-Pro-B Natriuret Pep Impressions: Chest X-Ray 09/28/18 20:26 IMPRESSION: Bilateral pleural effusions. Assessment & Plan - Diagnosis (1) Acute on chronic diastolic CHF (congestive heart failure), NYHA class 2 Is this a current diagnosis for this admission?: Yes Plan: Patient will be admitted for IV diuretic therapy utilizing Bumex 2 mg every 8 hours as I feel it is imperative to treat her early anasarca before it worsens. Her congestive heart failure medical regiment will also be adjusted for optimization of heart failure control. Her Bystolic will be increased to 20 mg daily and her lisinopril will be reduced to 20 mg daily. She will be asked to discontinue gabapentin and amlodipine as both these medications can cause severe lower extremity swelling and her hydralazine will be used on a as needed basis for hypertension uncontrolled by other medications. 09/29/2018 patient is on IV Bumex 2 mg every 8 hours I change it to 1 mg IV every 8, started on metolazone 2.5 mg p.o. twice daily. Gupta's catheter was placed. Patient was placed on fluid restriction. Cardiology consult and nephrology consult was requested. Carotid pain and gabapentin were disc ontinued. Daily weights were requested. Echocardiogram from May indicates normal left ventricular ejection fraction of 62%. Mild to moderate left ventricular diastolic dysfunction was noted. Right ventricular function was normal. BNP today is 4500. (2) Acute respiratory failure with hypoxia Is this a current diagnosis for this admission?: Yes Plan: Patient is on 1. 5 L of oxygen via nasal cannula pulse ox is 96%. Plan is to continue the present management. (3) Hypertension Qualifiers: Hypertension type: essential hypertension Qualified Code(s): I10 - Essential (primary) hypertension Is this a current diagnosis for this admission?: Yes Plan: Patient is presently on Bumex 1 mg IV every 8 hours, metolazone 2.5 mg p.o. twice daily, spironolactone 25 mg p.o. daily, lisinopril 20 mg p.o. daily patient is also on Bystolic 20 mg p.o. daily amlodipine was discontinued plan is to continue the present management. 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 I am going to request hemoglobin A1c. And is on Lantus 8 units subcu nightly at home and we plan to resume the same dose while she was in the hospital she was also placed on insulin sliding scale before meals and at bedtime. - Time Time Spent with patient: 15-24 minutes Medications reviewed and adjusted accordingly: Yes Anticipated discharge: Home
[2018-09-29] MEDS: HYDROCODONE/ACETAMINOPHEN 10-325 MG TABLET PO SCH ×2 (12:57→17:11)
[2018-09-29] MEDS: INSULIN LISPRO 100 UNIT/ML 3 ML VIAL SUBCUT PRN ×2 (13:49→17:12)
[2018-09-29] MEDS ORDERED: DEXTROSE 50%-WATER SYRINGE 25 GM/50 ML DOSE IV PRN (14:00)
[2018-09-29] MEDS ORDERED: DEXTROSE 50%-WATER SYRINGE 12.5 GM/25 ML DOSE IV PRN (14:00)
[2018-09-29] MEDS ORDERED: DEXTROSE 40% GEL 15 GM TUBE X 2 PO PRN (14:00)
[2018-09-29] MEDS ORDERED: GLUCAGON,HUMAN RECOMB 1 MG INJ IM PRN (14:00)
[2018-09-29] MEDS ORDERED: GABAPENTIN 300 MG CAPSULE PO SCH (14:00)
[2018-09-29] MEDS ORDERED: DEXTROSE 40% GEL 15 GM TUBE PO PRN (14:00)
[2018-09-29] MEDS: HYDRALAZINE HCL 25 MG TABLET PO SCH ×2 (14:36→21:49)
[2018-09-29 15:43] LABS: URINE CREATININE 70.3 mg/dL (15-278)
[2018-09-29 15:46] LABS: CREATINE KINASE MB 0.99 ng/mL (<4.55)
[2018-09-29 15:50] LABS: UR PRO/CREAT RATIO RESULT 8.3 mg/mg (0.0-0.2); URINE PROTEIN 582.9 mg/dL (<12)
[2018-09-29 15:52] LABS: TROPONIN I < 0.012 ng/mL
[2018-09-29] MEDS: METOLAZONE 2.5 MG TABLET PO SCH (17:11)
[2018-09-29] MEDS ORDERED: BUMETANIDE 1 MG TABLET PO SCH (18:00)
[2018-09-29] MEDS: ATORVASTATIN CALCIUM 40 MG TABLET PO SCH (21:49)
[2018-09-29] MEDS ORDERED: INSULIN GLARGINE,HUM.REC.ANLOG 300 UNIT/3 ML INSULN.PEN SUBCUT SCH (22:00)
[2018-09-29] MEDS ORDERED: ATORVASTATIN CALCIUM 40 MG TABLET PO SCH (22:00)
[2018-09-29] MEDS: INSULIN GLARGINE,HUM.REC.ANLOG 300 UNIT/3 ML INSULN.PEN SUBCUT SCH (22:45)
[2018-09-30] MEDS: HYDROCODONE/ACETAMINOPHEN 10-325 MG TABLET PO SCH ×4 (00:02→16:54)
[2018-09-30] MEDS: BUMETANIDE INJ/PF 1 MG/4 ML SDV IV SCH ×3 (05:00→22:06)
[2018-09-30] MEDS: HYDRALAZINE HCL 25 MG TABLET PO SCH ×3 (05:01→22:14)
[2018-09-30 05:02] LABS: ABSOLUTE EOSINOPHILS # (AUTO) 0.2 10^3/uL (0.0-0.6); ABSOLUTE LYMPHOCYTES (AUTO) 1.1 10^3/uL (0.5-4.7); ABSOLUTE MONOCYTES (AUTO) 0.6 10^3/uL (0.1-1.4); ABSOLUTE NEUT (AUTO) 3.6 10^3/uL (1.7-8.2); BASOPHILS % (AUTO) 0.7 % (0-2); EOSINOPHILS % (AUTO) 3.4 % (0-6); HEMATOCRIT 28.4 % (36.0-47.0); HEMOGLOBIN 9.7 g/dL (12.0-15.5); LYMPHOCYTES % (AUTO) 20.4 % (13-45); MEAN CORPUSCULAR HEMOGLOBIN 27.7 pg (27.0-33.4); MEAN CORPUSCULAR VOLUME 82 fl (80-97); MONOCYTES % (AUTO) 11.3 % (3-13); PLATELET COUNT 196 10^3/uL (150-450); RED BLOOD COUNT 3.48 10^6/uL (3.72-5.28); RED CELL DISTRIBUTION WIDTH 16.3 % (11.5-14.0); SEGMENTED NEUTROPHILS % (AUTO) 64.2 % (42-78); TOTAL CELLS COUNTED % (AUTO) 100 %; WHITE BLOOD COUNT 5.6 10^3/uL (4.0-10.5)
[2018-09-30] MEDS: HEPARIN SOD (PORCINE) 5,000 UNIT/ML 1 ML SYRINGE SUBCUT SCH ×3 (05:07→22:04)
[2018-09-30 05:26] LABS: ALANINE AMINOTRANSFERASE 14 U/L (9-52); ALBUMIN 2.9 g/dL (3.5-5.0); ALKALINE PHOSPHATASE 81 U/L (38-126); ANION GAP 6 (5-19); ASPARTATE AMINO TRANSFERASE 16 U/L (14-36); BILIRUBIN,DIRECT 0.2 mg/dL (0.0-0.4); BILIRUBIN,TOTAL 0.4 mg/dL (0.2-1.3); BLOOD UREA NITROGEN 28 mg/dL (7-20); CALCIUM 8.5 mg/dL (8.4-10.2); CARBON DIOXIDE 25 mmol/L (22-30); CHLORIDE 111 mmol/L (98-107); CHOLESTEROL 141.28 mg/dL (0-200); GLUCOSE 116 mg/dL (75-110); POTASSIUM 4.8 mmol/L (3.6-5.0); SODIUM 141.7 mmol/L (137-145); TOTAL PROTEIN 5.4 g/dL (6.3-8.2); TRIGLYCERIDES 184 mg/dL (<150)
[2018-09-30 05:38] LABS: DIRECT LDL 58 mg/dL (<100)
[2018-09-30 05:41] LABS: VLDL CHOLESTEROL 36.8 mg/dL (10-31)
[2018-09-30 05:43] LABS: FREE T3 4.09 pg/mL (2.77-5.27); FREE T4 (FREE THYROXINE) 1.43 ng/dL (0.78-2.19)
[2018-09-30 05:56] LABS: THYROID STIMULATING HORMONE 1.79 uIU/mL (0.47-4.68)
[2018-09-30] MEDS: ONDANSETRON 4 MG TAB.RAPDIS PO PRN ×2 (06:42→20:48)
--- NOTE | 2018-09-30 06:51 | EKG REPORT ---
SEVERITY:- ABNORMAL ECG - SINUS RHYTHM CONSIDER ANTEROSEPTAL INFARCT : Confirmed by: Candis Schofield 30-Sep-2018 06:50:38
[2018-09-30] MEDS: NEBIVOLOL HCL 10 MG TABLET PO SCH (08:20)
[2018-09-30] MEDS: SPIRONOLACTONE 25 MG TABLET PO SCH (08:21)
[2018-09-30] MEDS: DOCUSATE SODIUM 100 MG CAPSULE PO SCH (08:21)
[2018-09-30] MEDS: FAMOTIDINE 20 MG TABLET PO SCH ×2 (08:21→22:05)
[2018-09-30] MEDS ORDERED: SPIRONOLACTONE 25 MG TABLET PO SCH (10:00)
[2018-09-30] MEDS ORDERED: (PENDING PHARMACY ID) (Ascorbic Acid [C-1000] 1,000 MG) PO SCH (10:00)
[2018-09-30] MEDS ORDERED: NEBIVOLOL HCL 5 MG TABLET PO SCH (10:00)
[2018-09-30] MEDS ORDERED: LISINOPRIL 10 MG TABLET PO SCH (10:00)
[2018-09-30] MEDS ORDERED: AMLODIPINE BESYLATE 10 MG TABLET PO SCH (10:00)
[2018-09-30] MEDS: CHOLECALCIFEROL (D3) 1,000 UNIT TABLET PO SCH (11:21)
[2018-09-30] MEDS: ASCORBIC ACID 500 MG TABLET PO SCH (11:21)
[2018-09-30] MEDS: METOLAZONE 2.5 MG TABLET PO SCH ×2 (12:13→17:02)
[2018-09-30] MEDS: INSULIN LISPRO 100 UNIT/ML 3 ML VIAL SUBCUT PRN (14:14)
[2018-09-30] MEDS: HYDRALAZINE HCL INJ/PF 20 MG/1 ML SDV IV PRN (20:26)
[2018-09-30] MEDS: LISINOPRIL 10 MG TABLET PO SCH (22:04)
[2018-09-30] MEDS: AMLODIPINE BESYLATE 10 MG TABLET PO SCH (22:04)
[2018-09-30] MEDS: INSULIN GLARGINE,HUM.REC.ANLOG 300 UNIT/3 ML INSULN.PEN SUBCUT SCH (22:05)
[2018-09-30] MEDS: ISOSORBIDE MONONITRATE 30 MG TAB.ER.24H PO SCH (22:05)
[2018-09-30] MEDS: ATORVASTATIN CALCIUM 40 MG TABLET PO SCH (22:05)
[2018-10-01] MEDS: HYDROCODONE/ACETAMINOPHEN 10-325 MG TABLET PO SCH ×4 (00:39→18:02)
[2018-10-01 05:55] LABS: ABSOLUTE EOSINOPHILS # (AUTO) 0.1 10^3/uL (0.0-0.6); ABSOLUTE LYMPHOCYTES (AUTO) 0.8 10^3/uL (0.5-4.7); ABSOLUTE MONOCYTES (AUTO) 0.6 10^3/uL (0.1-1.4); ABSOLUTE NEUT (AUTO) 4.5 10^3/uL (1.7-8.2); BASOPHILS % (AUTO) 0.6 % (0-2); EOSINOPHILS % (AUTO) 2.3 % (0-6); HEMATOCRIT 25.3 % (36.0-47.0); HEMOGLOBIN 8.8 g/dL (12.0-15.5); LYMPHOCYTES % (AUTO) 13.1 % (13-45); MEAN CORPUSCULAR HEMOGLOBIN 28.2 pg (27.0-33.4); MEAN CORPUSCULAR HGB CONC 34.7 g/dL (32.0-36.0); MEAN CORPUSCULAR VOLUME 81 fl (80-97); MONOCYTES % (AUTO) 9.5 % (3-13); PLATELET COUNT 175 10^3/uL (150-450); RED BLOOD COUNT 3.11 10^6/uL (3.72-5.28); RED CELL DISTRIBUTION WIDTH 15.9 % (11.5-14.0); SEGMENTED NEUTROPHILS % (AUTO) 74.5 % (42-78); TOTAL CELLS COUNTED % (AUTO) 100 %
[2018-10-01 06:19] LABS: ANION GAP 6 (5-19); BLOOD UREA NITROGEN 27 mg/dL (7-20); CARBON DIOXIDE 24 mmol/L (22-30); CHLORIDE 108 mmol/L (98-107); GLUCOSE 147 mg/dL (75-110); POTASSIUM 4.7 mmol/L (3.6-5.0); SODIUM 137.7 mmol/L (137-145)
--- NOTE | 2018-10-01 06:24 | PDOC PROGRESS REPORT ---
Subjective Progress Note for:: 09/30/18 Subjective:: The patient is upset today. 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 At the time of this encounter she is settled and appears to be resting comfortably. She is not in any distress. Reason For Visit: HEART FAILURE Physical Exam Vital Signs: Temp Pulse Resp BP Pulse Ox 98.2 F 84 18 198/65 H 98 09/30/18 20:15 10/01/18 02:00 09/30/18 20:15 09/30/18 20:15 09/30/18 20:15 Intake & Output 09/29/18 09/30/18 10/01/18 06:59 06:59 06:59 Intake Total 240 872 950 Output Total 600 2550 Balance 240 272 -1600 Weight 73.4 kg 68.9 kg 68.5 kg General appearance: PRESENT: no acute distress, cooperative, well-developed Head exam: PRESENT: normocephalic Mouth exam: PRESENT: moist, tongue midline Respiratory exam: PRESENT: rales - Faint rales at bases, symmetrical, unlabored. ABSENT: rhonchi, stridor, wheezes Cardiovascular exam: PRESENT: RRR, +S1, +S2, systolic murmur - 3/6 GI/Abdominal exam: PRESENT: normal bowel sounds, soft. ABSENT: distended, tenderness Extremities exam: PRESENT: +1 edema Neurological exam: PRESENT: alert, awake, oriented to person, oriented to place, oriented to time, oriented to situation, CN II-XII grossly intact Psychiatric exam: PRESENT: appropriate affect Results Laboratory Results: 10/01/18 04:36 10/01/18 04:36 WBC 6.0 RBC 3.11 L Hgb 8.8 L Hct 25.3 L MCV 81 MCH 28.2 MCHC 34.7 RDW 15.9 H Plt Count 175 Seg Neutrophils % 74.5 Lymphocytes % 13.1 Monocytes % 9.5 Eosinophils % 2.3 Basophils % 0.6 Absolute Neutrophils 4.5 Absolute Lymphocytes 0.8 Absolute Monocytes 0.6 Absolute Eosinophils 0.1 Absolute Basophils 0.0 09/28/18 09/29/18 09/29/18 22:55 01:52 01:52 Creatine Kinase 197 H CK-MB (CK-2) 2.27 Troponin I < 0.012 < 0.012 NT-Pro-B Natriuret Pep 4310 H 09/29/18 09/29/18 09/29/18 07:58 07:58 15:00 Creatine Kinase 149 H 120 CK-MB (CK-2) 1.45 Troponin I < 0.012 NT-Pro-B Natriuret Pep 09/29/18 09/30/18 15:00 04:06 Creatine Kinase CK-MB (CK-2) 0.99 Troponin I < 0.012 NT-Pro-B Natriuret Pep 4370 H Impressions: Chest X-Ray 09/28/18 20:26 IMPRESSION: Bilateral pleural effusions. Assessment & Plan - Diagnosis (1) Hypertension Qualifiers: Hypertension type: essential hypertension Qualified Code(s): I10 - Essential (primary) hypertension Is this a current diagnosis for this admission?: Yes Plan: Several changes were suggested to her medication regimen. The patient is frustrated because multiple changes in her medications have been made over the last year. 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 The director of user experience is outside of [place]. For the time being she is on amlodipine, despite the possibility of contributing to lower extremity edema) as well as increased nebivolol (20 mg daily) and Zaroxolyn has been added to her Bumex. The Bumex has also been increased. Despite this she still exhibits significant systolic hypertension. I have asked Dr. Nichols from nephrology to see the patient for her ongoing chronic kidney disease as well as to help assess her ongoing workup for chronic kidney disease. (2) Chronic kidney disease (CKD), stage III (moderate) Is this a current diagnosis for this admission?: Yes Plan: The patient reports that workup for her chronic kidney disease was started in May. She did have a renal ultrasound that was unremarkable. She had renal artery Doppler studies which were unremarkable as well. Nephrology will see the patient today for assistance in the current state of diagnostics as well as management. (3) Acute on chronic diastolic CHF (congestive heart failure), NYHA class 2 Is this a current diagnosis for this admission?: Yes Plan: As noted above the patient has had increased doses of diuretics including the addition of Zaroxolyn. Her net negative fluid balance is less than 2 L. Her daily weights suggest a 5 kg decrease in weight which is highly unlikely given her intake versus output. She did have an echocardiogram this summer which showed concentric left ventricular hypertrophy, grade 2/4 diastolic failure with preserved ejection fraction. (4) Bilateral lower extremity edema Is this a current diagnosis for this admission?: Yes Plan: Possibly a combination of her renal failure and adverse effects of amlodipine and/or gabapentin. (5) Diabetes mellitus type 2 in obese Is this a current diagnosis for this admission?: Yes Plan: Currently on Lantus and sliding scale insulin. Continue to monitor Accu-Cheks and adjust medications as clinically indicated. - Time Time Spent with patient: 15-24 minutes Medications reviewed and adjusted accordingly: Yes Anticipated discharge: Home
[2018-10-01] MEDS: HEPARIN SOD (PORCINE) 5,000 UNIT/ML 1 ML SYRINGE SUBCUT SCH ×3 (06:29→21:47)
[2018-10-01] MEDS: HYDRALAZINE HCL 25 MG TABLET PO SCH ×2 (06:30→13:36)
[2018-10-01] MEDS: BUMETANIDE INJ/PF 1 MG/4 ML SDV IV SCH ×3 (06:31→21:44)
[2018-10-01] MEDS: ONDANSETRON 4 MG TAB.RAPDIS PO PRN ×3 (06:59→20:12)
[2018-10-01] MEDS: NEBIVOLOL HCL 10 MG TABLET PO SCH (08:54)
[2018-10-01] MEDS: DOCUSATE SODIUM 100 MG CAPSULE PO SCH (09:16)
[2018-10-01] MEDS: CHOLECALCIFEROL (D3) 1,000 UNIT TABLET PO SCH (09:16)
[2018-10-01] MEDS: SPIRONOLACTONE 25 MG TABLET PO SCH (09:16)
[2018-10-01] MEDS: ASCORBIC ACID 500 MG TABLET PO SCH (09:16)
[2018-10-01] MEDS: METOLAZONE 2.5 MG TABLET PO SCH ×2 (09:16→18:03)
[2018-10-01] MEDS: FAMOTIDINE 20 MG TABLET PO SCH ×2 (09:16→21:42)
[2018-10-01] MEDS: INSULIN LISPRO 100 UNIT/ML 3 ML VIAL SUBCUT PRN (12:08)
--- NOTE | 2018-10-01 13:39 | PDOC PROGRESS REPORT ---
Subjective Progress Note for:: 10/01/18 - Actual note for October 01, 2018 Subjective:: The patient feels nauseated currently. The mealtimes are different in the hospital than at home. In addition she feels that she is getting a left earache. She also points out a slight depressed linear region along the midline at the top of her skull. Reason For Visit: HEART FAILURE Physical Exam Vital Signs: Temp Pulse Resp BP Pulse Ox 98.3 F 76 16 170/65 H 96 10/01/18 08:32 10/01/18 08:32 10/01/18 08:32 10/01/18 08:32 10/01/18 12:27 Intake & Output 09/30/18 10/01/18 10/02/18 06:59 06:59 06:59 Intake Total 872 950 Output Total 600 2550 Balance 272 -1600 Weight 68.9 kg 68.5 kg General appearance: PRESENT: cooperative, mild distress, other - Appears to be feeling poorly Head exam: PRESENT: other - Palpation of the scalp reveals a slight cleft over the intraparietal seen. There is no tenderness. Ear exam: PRESENT: other - Left TM is cloudy. There is a slight bulge. Mouth exam: PRESENT: dry mucosa Respiratory exam: PRESENT: rales - Fine rales at bases, symmetrical, unlabored. ABSENT: accessory muscle use, rhonchi, stridor, wheezes Cardiovascular exam: PRESENT: RRR, +S1, +S2, systolic murmur - 3/6 GI/Abdominal exam: PRESENT: normal bowel sounds, soft. ABSENT: tenderness Extremities exam: PRESENT: +1 edema Neurological exam: PRESENT: alert, awake, oriented to person, oriented to place, oriented to time, oriented to situation, CN II-XII grossly intact Psychiatric exam: PRESENT: appropriate affect - Affect reflects her current clinical state Results Laboratory Results: 10/01/18 04:36 10/01/18 04:36 10/01/18 10/01/18 04:36 04:36 WBC 6.0 RBC 3.11 L Hgb 8.8 L Hct 25.3 L MCV 81 MCH 28.2 MCHC 34.7 RDW 15.9 H Plt Count 175 Seg Neutrophils % 74.5 Lymphocytes % 13.1 Monocytes % 9.5 Eosinophils % 2.3 Basophils % 0.6 Absolute Neutrophils 4.5 Absolute Lymphocytes 0.8 Absolute Monocytes 0.6 Absolute Eosinophils 0.1 Absolute Basophils 0.0 Sodium 137.7 Potassium 4.7 Chloride 108 H Carbon Dioxide 24 Anion Gap 6 BUN 27 H Creatinine 1.32 H Est GFR ( Amer) 50 L Est GFR (Non-Af Amer) 42 L Glucose 147 H Calcium 8.0 L Magnesium 1.8 09/28/18 09/29/18 09/29/18 22:55 01:52 01:52 Creatine Kinase 197 H CK-MB (CK-2) 2.27 Troponin I < 0.012 < 0.012 NT-Pro-B Natriuret Pep 4310 H 09/29/18 09/29/18 09/29/18 07:58 07:58 15:00 Creatine Kinase 149 H 120 CK-MB (CK-2) 1.45 Troponin I < 0.012 NT-Pro-B Natriuret Pep 09/29/18 09/30/18 15:00 04:06 Creatine Kinase CK-MB (CK-2) 0.99 Troponin I < 0.012 NT-Pro-B Natriuret Pep 4370 H Impressions: Chest X-Ray 09/28/18 20:26 IMPRESSION: Bilateral pleural effusions. Assessment & Plan - Diagnosis (1) Hypertension Qualifiers: Hypertension type: essential hypertension Qualified Code(s): I10 - Essential (primary) hypertension Is this a current diagnosis for this admission?: Yes Plan: Excellent diastolic control. She continues to exhibit elevated systolic pressures. Slight adjustments in her medications have been made. She is on increased diuretics. Consult with nephrology is pending. I will hold off on making any more changes until she is seen by nephrology. (2) Chronic kidney disease (CKD), stage III (moderate) Is this a current diagnosis for this admission?: Yes Plan: GFR has been stable. Await nephrology assessment. (3) Acute on chronic diastolic CHF (congestive heart failure), NYHA class 2 Is this a current diagnosis for this admission?: Yes Plan: She has fine rales at the bases. She did have a negative net fluid balance of 1.6 L yesterday. Continue current diuretic regimen and continue to monitor intake and output. (4) Bilateral lower extremity edema Is this a current diagnosis for this admission?: Yes Plan: Appears to be responding to diuresis (5) Diabetes mellitus type 2 in obese Is this a current diagnosis for this admission?: Yes Plan: The majority of her Accu-Cheks have been below 200. - Time Time Spent with patient: 15-24 minutes Medications reviewed and adjusted accordingly: Yes Anticipated discharge: Home
[2018-10-01] MEDS ORDERED: NEOMY SULF/POLYMYX B SULF/HC OTIC SUSP 10 ML AS SCH (14:00)
[2018-10-01] MEDS: AMOXICILLIN TR/POT CLAVULANATE 500-125 MG TAB PO SCH (16:25)
[2018-10-01] MEDS: HYDRALAZINE HCL INJ/PF 20 MG/1 ML SDV IV PRN (16:25)
[2018-10-01] MEDS: PANTOT AC/MIN OIL/PET HY-PHL OINT 50 GM TOP SCH (18:02)
--- NOTE | 2018-10-01 18:12 | PDOC CONSULTATION ---
Consultation Consult Date: 10/01/18 Attending physician:: JERARDO BARRY Consult reason:: I was asked to see the patient because of proteinuria, edema and abnormal kidney function. History of Present Illness Admission Date/PCP: 09/29/18 01:09 AJITH JONES MD History of Present Illness: JASMIN MURDOCK is a 58 year old female with history of diastolic congestive heart failure, hypertension, heart murmur, diabetes mellitus type 2, proteinuria and chronic kidney disease who was admitted on 09/29/2018 due to dyspnea and lower extremity edema. Patient said that on 1228 she woke up and was short of breath and the next day she decided to go to the emergency room and was subsequently admitted. As for her lower extremity swelling she said is been ongoing edema since she was last hospitalized 2 weeks ago and it has been progressively getting worse. She was diagnosed with acute on chronic diastolic congestive heart failure and her diuretics was increased from Bumex of 1 mg p.o. twice daily to 1 mg every 8 hours since admission with addition of metolazone. He said the Lasix did not really work for her previously. So far this diuretics seems to be working and she has lost at least 1.8 kg since admission and her swelling possibly is getting better although hard to tell. She admits that she is breathing better though. Further workup showed urine protein to creatinine ratio of 8.3 it was done on September 29 at with albumin of only 2.9 and a triglyceride of 184 with the rest of the lipid panel within normal limits. She is making good amount of urine output since she made 2150 mL of urine yesterday for 24 hours. On admission her BUN was 28 and creatinine of 1.14 with. Yester day they were 28 and 1.48 with estimated GFR of 36. Review of previous records show that her BUN ranges anywhere between 20-30s, creatinine ranges anywhere from between 0.9-1.1 with estimated GFR between 50-60s as a baseline. Her hemoglobin A1c is acceptable and good at 6.4. Her chest x-ray showed bilateral pleural effusion worse than May 2018. She had an echocardiogram in May 10, 2018 showing normal ejection fraction with grade 2/4 mild to moderate diastolic dysfunction and moderate mitral regurgitation and aortic regurgitation. She had a kidney ultrasound on May 12, 2018 which showed normal size kidneys, normal echogenicity and no hydronephrosis. Patient usually follows up with informatica architect Dr. Denice xavier for cardiology which she last saw 2 months ago. She said she had a stress test in August 2018 which was reportedly normal. She was told that her heart is in good c ondition. However she has been in and out of the hospital at least 5 times now for the same reason of shortness of breath and lower extremity edema without any chest pains. She has also seen couple of power sweeper operator in the past including Dr. Amor [facility] and due to her insurance has recently been seeing Dr. Mcclendon of [place]. At that time it is been known that she has had proteinuria since November 2017. She was told that she has chronic kidney disease and the proteinuria she was told was possibly related to her congestive heart failure. At one point she related that Dr. Amor of [place] has considered doing a kidney biopsy but that is when she has to switch power sweeper operator due to insurance issues. Currently the patient has a lipid of nausea due to newly diagnosed diabetic gastroparesis during last hospitalization. She said she is breathing better after diuresis was started and increased. She denies any vomiting not sure if she is really having fever. She denies any cough. She denies any history of kidney stones. She denies any history of hepatitis a B or C. She denies use of nonsteroidal anti-inflammatory medications. He has been using pain medications for her back for the last 17 years. He denies any administration of IV contrast. Past Medical History Cardiac Medical History: Reports: CHF-Diastolic, Heart Murmur - Moderate mitral regurgitation and aortic regurgitation, Hypertension-primary Endocrine Medical History: Reports: Diabetes Mellitus Type 2 Renal/ Medical History: Reports: Chronic Kidney Disease Stage III GI Medical History: Reports: Gastroesophageal Reflux Disease, Other - Diabetic gastroparesis Musculoskeltal Medical History: Reports: Arthritis - BACK Hematology Medical History: Reports Anemia Past Surgical History Past Surgical History: Reports: Cholecystectomy, Orthopedic Surgery - back x3, Tonsillectomy, Tubal Ligation, Other - Ears Social History Information Source: Patient Lives with: Family - With son Smoking Status: Never Smoker Frequency of Alcohol Use: None Hx Recreational Drug Use: No Drugs: None Hx Prescription Drug Abuse: No - Advance Directive Resuscitation Status: Full Code Family History Family History: CAD - Father, DM, Hypertension - Father, Other - Kidney stones in her sister Parental Family History Reviewed: Yes Children Family History Reviewed: Yes Sibling(s) Family History Reviewed.: Yes Medication/Allergy Home Medications: Alendronate Sodium [Fosamax 70 mg Tablet] 70 mg PO SA@1000 09/29/18 Amlodipine Besylate [Norvasc 10 mg Tablet] 10 mg PO DAILY 09/29/18 Ascorbic Acid [C-1000] 1,000 mg PO DAILY 09/29/18 Atorvastatin Calcium [Lipitor 40 mg Tablet] 40 mg PO QHS 09/29/18 Bumetanide [Bumex 1 mg Tablet] 1 mg PO BID 09/29/18 Cholecalciferol (Vitamin D3) [Vitamin D3 1000 Unit Tablet] 1,000 unit PO DAILY 09/29/18 Gabapentin [Neurontin 300 mg Capsule] 300 mg PO Q8 09/29/18 Hydralazine HCl [Apresoline 25 mg Tablet] 75 mg PO Q8 09/29/18 Hydrocodone Bit/Acetaminophen [Hydrocodon-Acetaminophn 10-325] 1 tab PO Q6 09/29/18 Insulin Glargine,Hum.rec.anlog [Lantus Insulin 100 Unit/mL] 8 units SQ QHS 09/29/18 Insulin Lispro [Humalog Insulin (Lispro) 100 unit/mL] 0 unit SQ .SLIDING SCALE 09/29/18 Isosorbide Mononitrate [Imdur 30 mg Tablet.er] 30 mg PO QHS 09/29/18 Lisinopril [Prinivil 40 mg Tablet] 40 mg PO DAILY 09/29/18 Nebivolol HCl [Bystolic 5 mg Tablet] 5 mg PO DAILY 09/29/18 Omeprazole 40 mg PO QHS 09/29/18 Ondansetron HCl [Zofran 4 mg Tablet] 4 mg PO Q8HP PRN 09/29/18 Spironolactone [Aldactone 25 mg Tablet] 25 mg PO DAILY 09/29/18 Allergies/Adverse Reactions: metaxalone [From Skelaxin] Allergy (Intermediate, Verified 09/03/18 12:13) Hives metformin Allergy (Intermediate, Verified 09/03/18 12:13) MUSCLE PAIN Review of Systems All systems: reviewed and no additional remarkable complaints except as stated Review of Systems: Constitutional: ABSENT: chills, fatigue, fever(s), headache(s), weight gain, weight loss Eyes: ABSENT: visual disturbances Ears: ABSENT: hearing changes Cardiovascular: ABSENT: chest pain, orthropnea, palpitations; admits dyspnea and edema Respiratory: ABSENT: cough, hemoptysis; admits edema Gastrointestinal: ABSENT: abdominal pain, constipation, diarrhea, hematemesis, hematochezia, vomiting; admits nausea Genitourinary: ABSENT: dysuria, hematuria Musculoskeletal: ABSENT: joint swelling Integumentary: ABSENT: rash, wounds Neurological: ABSENT: abnormal gait, abnormal speech, confusion, dizziness, focal weakness, numbness, syncope Psychiatric: ABSENT: anxiety, depression Endocrine: ABSENT: cold intolerance, heat intolerance, polydipsia, polyuria Hematologic/Lymphatic: ABSENT: easy bleeding, easy bruising, lymphadenopathy Physical Exam Vital Signs: Temp Pulse Resp BP Pulse Ox 98.0 F 77 12 182/58 H 97 10/01/18 16:02 10/01/18 16:02 10/01/18 16:02 10/01/18 16:02 10/01/18 16:02 Intake & Output 09/30/18 10/01/18 10/02/18 06:59 06:59 06:59 Intake Total 872 950 Output Total 600 2550 Balance 272 -1600 Weight 68.9 kg 68.5 kg Exam: General appearance: No acute distress, cooperative, well-developed, well- nourished Head exam: PRESENT: atraumatic, normocephalic Eye exam: PRESENT: Conjunctiva pale, EOMI, PERRLA. ABSENT: conjunctival injection, scleral icterus Mouth exam: PRESENT: moist, neck supple, tongue midline Neck exam: PRESENT: full ROM. ABSENT: carotid bruit, JVD, lymphadenopathy, thyromegaly Respiratory exam: PRESENT: clear to auscultation bilaterally. ABSENT: rales, rhonchi, stridor, wheezes Cardiovascular exam: PRESENT: RRR, +S1, +S2. Grade 3/6 systolic murmur Pulses: PRESENT: normal radial pulses, normal dorsalis pedis pulses GI/Abdominal exam: PRESENT: normal bowel sounds, soft. ABSENT: guarding, mass, tenderness Rectal exam: Deferred Extremities exam: PRESENT: full ROM. Grade 2 bilateral lower extremity pitting edema up to the thighs and also in the dependent portion of her buttocks and back. ABSENT: calf tenderness Musculoskeletal: PRESENT: full ROM. ABSENT: deformity Neurological exam: PRESENT: alert, Awake, Oriented to person, Oriented to place, Oriented to time, reflexes normal, CN II-XII grossly intact. ABSENT: motor sensory deficit Psychiatric exam: PRESENT: appropriate affect, normal mood. ABSENT: homicidal ideation, suicidal ideation Skin exam: PRESENT: intact, dry, warm. Positive pallor ABSENT: rash Results Laboratory Results: 10/01/18 04:36 10/01/18 04:36 10/01/18 10/01/18 04:36 04:36 WBC 6.0 RBC 3.11 L Hgb 8.8 L Hct 25.3 L MCV 81 MCH 28.2 MCHC 34.7 RDW 15.9 H Plt Count 175 Seg Neutrophils % 74.5 Lymphocytes % 13.1 Monocytes % 9.5 Eosinophils % 2.3 Basophils % 0.6 Absolute Neutrophils 4.5 Absolute Lymphocytes 0.8 Absolute Monocytes 0.6 Absolute Eosinophils 0.1 Absolute Basophils 0.0 Sodium 137.7 Potassium 4.7 Chloride 108 H Carbon Dioxide 24 Anion Gap 6 BUN 27 H Creatinine 1.32 H Est GFR ( Amer) 50 L Est GFR (Non-Af Amer) 42 L Glucose 147 H Calcium 8.0 L Magnesium 1.8 09/28/18 09/29/18 09/29/18 22:55 01:52 01:52 Creatine Kinase 197 H CK-MB (CK-2) 2.27 Troponin I < 0.012 < 0.012 NT-Pro-B Natriuret Pep 4310 H 09/29/18 09/29/18 09/29/18 07:58 07:58 15:00 Creatine Kinase 149 H 120 CK-MB (CK-2) 1.45 Troponin I < 0.012 NT-Pro-B Natriuret Pep 09/29/18 09/30/18 15:00 04:06 Creatine Kinase CK-MB (CK-2) 0.99 Troponin I < 0.012 NT-Pro-B Natriuret Pep 4370 H Impressions: Chest X-Ray 09/28/18 20:26 IMPRESSION: Bilateral pleural effusions. Assessment & Plan - Diagnosis (1) Nephrotic range proteinuria Is this a current diagnosis for this admission?: Yes Plan: Her urine protein creatinine ratio was 8.3. Differential diagnosis includes diabetic nephropathy versus chronic glomerular disease versus paraproteinemia. This is definitely a contributory factor to the patient's severe lower extremity edema with hypoalbuminemia. We will do workup to include 24-hour urine protein with creatinine clearance, serum protein electrophoresis, urinalysis, hepatitis panel, ALEA, ANCA, anti-GBM, complements C3 and C4, NSAID diminished rotation rate. Eventually the patient is probably going to need a kidney biopsy for more definitive diagnosis. Continue current dose of Bumex and metolazone as it seems to be working. (2) Acute kidney injury superimposed on chronic kidney disease Is this a current diagnosis for this admission?: Yes Plan: Increasing creatinine likely unexpected result for increased diuresis. (3) Hypertension Qualifiers: Hypertension type: essential hypertension Qualified Code(s): I10 - Essential (primary) hypertension Is this a current diagnosis for this admission?: Yes Plan: Severe and uncontrolled. We will start clonidine 0.1 mg p.o. every 8 hours. (4) Acute on chronic diastolic CHF (congestive heart failure), NYHA class 2 Is this a current diagnosis for this admission?: Yes Plan: This could still be a concomitant condition in the patient given that bilateral pleural effusion which could happen more in congestive heart failure done and nephrotic syndrome. (5) Bilateral lower extremity edema Is this a current diagnosis for this admission?: Yes (6) Diabetes mellitus type 2 in nonobese Is this a current diagnosis for this admission?: Yes Plan: Control is acceptable. (7) Chronic kidney disease (CKD), stage III (moderate) Is this a current diagnosis for this admission?: Yes (8) Anemia Qualifiers: Anemia type: iron deficiency Iron deficiency anemia type: inadequate dieta ry iron intake Qualified Code(s): D50.8 - Other iron deficiency anemias Is this a current diagnosis for this admission?: Yes Plan: We will check iron panel. (9) Bilateral pleural effusion Is this a current diagnosis for this admission?: Yes (10) Diabetic gastroparesis Is this a current diagnosis for this admission?: Yes (11) Mitral regurgitation Qualifiers: Cardiac valve disease etiology: nonrheumatic Qualified Code(s): I34.0 - Nonrheumatic mitral (valve) insufficiency Is this a current diagnosis for this admission?: Yes - Notes Notes: Thank you very much for this consultation. Assessment and plan discussed with patient. - Time Time Spent: Greater than 70 Minutes
[2018-10-01] MEDS ORDERED: CLONIDINE HCL 0.1 MG TABLET PO ONE (18:15)
[2018-10-01 21:00] LABS: APPEARANCE,URINE SLIGHTLY-CLOUDY; BILIRUBIN,URINE NEGATIVE (NEGATIVE); COLOR,URINE YELLOW; GLUCOSE, URINE NEGATIVE (NEGATIVE); KETONES,URINE NEGATIVE (NEGATIVE); LEUKOCYTE ESTERASE,URINE TRACE (NEGATIVE); NITRITE,URINE NEGATIVE (NEGATIVE); PROTEIN,URINE >=500 mg/dL (NEGATIVE); URINE SPECIFIC GRAVITY 1.009; UROBILINOGEN,URINE NEGATIVE mg/dL (<2.0)
[2018-10-01] MEDS: CLONIDINE HCL 0.1 MG TABLET PO SCH (21:01)
[2018-10-01] MEDS: LISINOPRIL 10 MG TABLET PO SCH (21:42)
[2018-10-01] MEDS: ISOSORBIDE MONONITRATE 30 MG TAB.ER.24H PO SCH (21:42)
[2018-10-01] MEDS: ATORVASTATIN CALCIUM 40 MG TABLET PO SCH (21:42)
[2018-10-01] MEDS: AMLODIPINE BESYLATE 10 MG TABLET PO SCH (21:43)
[2018-10-01] MEDS: INSULIN GLARGINE,HUM.REC.ANLOG 300 UNIT/3 ML INSULN.PEN SUBCUT SCH (21:46)
[2018-10-02] MEDS: HYDROCODONE/ACETAMINOPHEN 10-325 MG TABLET PO SCH ×4 (00:16→17:26)
[2018-10-02] MEDS: HYDRALAZINE HCL INJ/PF 20 MG/1 ML SDV IV PRN (00:42)
[2018-10-02] MEDS: BUMETANIDE INJ/PF 1 MG/4 ML SDV IV SCH ×3 (06:06→21:30)
[2018-10-02] MEDS: CLONIDINE HCL 0.1 MG TABLET PO SCH ×3 (06:07→21:31)
[2018-10-02] MEDS: HEPARIN SOD (PORCINE) 5,000 UNIT/ML 1 ML SYRINGE SUBCUT SCH ×2 (06:10→13:49)
[2018-10-02 08:19] LABS: ABSOLUTE EOSINOPHILS # (AUTO) 0.1 10^3/uL (0.0-0.6); ABSOLUTE LYMPHOCYTES (AUTO) 0.7 10^3/uL (0.5-4.7); ABSOLUTE MONOCYTES (AUTO) 0.5 10^3/uL (0.1-1.4); ABSOLUTE RETICS # 0.123 10^6/uL (0.028-0.122); BASOPHILS % (AUTO) 0.5 % (0-2); EOSINOPHILS % (AUTO) 1.8 % (0-6); HEMATOCRIT 25.8 % (36.0-47.0); HEMOGLOBIN 8.8 g/dL (12.0-15.5); LYMPHOCYTES % (AUTO) 14.1 % (13-45); MEAN CORPUSCULAR HEMOGLOBIN 27.7 pg (27.0-33.4); MEAN CORPUSCULAR HGB CONC 33.9 g/dL (32.0-36.0); MEAN CORPUSCULAR VOLUME 82 fl (80-97); MONOCYTES % (AUTO) 8.7 % (3-13); PLATELET COUNT 156 10^3/uL (150-450); RED BLOOD COUNT 3.16 10^6/uL (3.72-5.28); RETICULOCYTE COUNT (AUTO) 3.91 % (0.66-2.85); SEGMENTED NEUTROPHILS % (AUTO) 74.9 % (42-78); TOTAL CELLS COUNTED % (AUTO) 100 %; WHITE BLOOD COUNT 5.3 10^3/uL (4.0-10.5)
[2018-10-02 08:41] LABS: ANION GAP 5 (5-19); BLOOD UREA NITROGEN 28 mg/dL (7-20); CALCIUM 8.3 mg/dL (8.4-10.2); CARBON DIOXIDE 26 mmol/L (22-30); CHLORIDE 109 mmol/L (98-107); GLUCOSE 137 mg/dL (75-110); POTASSIUM 4.3 mmol/L (3.6-5.0); SODIUM 140.3 mmol/L (137-145)
[2018-10-02 09:00] LABS: ERYTHROCYTE SEDIMENTATION RATE 69 mm/hr (0-30)
[2018-10-02] MEDS: FAMOTIDINE 20 MG TABLET PO SCH ×2 (09:18→21:31)
[2018-10-02] MEDS: AMOXICILLIN TR/POT CLAVULANATE 500-125 MG TAB PO SCH ×3 (09:18→17:26)
[2018-10-02] MEDS: CHOLECALCIFEROL (D3) 1,000 UNIT TABLET PO SCH (09:18)
[2018-10-02] MEDS: METOLAZONE 2.5 MG TABLET PO SCH ×2 (09:18→17:26)
[2018-10-02] MEDS: ASCORBIC ACID 500 MG TABLET PO SCH (09:18)
[2018-10-02] MEDS: NEBIVOLOL HCL 10 MG TABLET PO SCH (09:18)
[2018-10-02] MEDS: PANTOT AC/MIN OIL/PET HY-PHL OINT 50 GM TOP SCH ×2 (09:19→17:26)
[2018-10-02] MEDS: DOCUSATE SODIUM 100 MG CAPSULE PO SCH (09:19)
[2018-10-02] MEDS: ONDANSETRON 4 MG TAB.RAPDIS PO PRN (09:47)
[2018-10-02] MEDS: SPIRONOLACTONE 25 MG TABLET PO SCH (09:47)
[2018-10-02] MEDS: INSULIN LISPRO 100 UNIT/ML 3 ML VIAL SUBCUT PRN (12:16)
--- NOTE | 2018-10-02 13:39 | PDOC PROGRESS REPORT ---
Subjective Progress Note for:: 10/02/18 Subjective:: Was sleeping this afternoon. Awakens easily. Still reports feeling tired and weak. Reason For Visit: HEART FAILURE Physical Exam Vital Signs: Temp Pulse Resp BP Pulse Ox 98.6 F 76 16 153/56 H 98 10/02/18 12:00 10/02/18 12:00 10/02/18 12:00 10/02/18 12:00 10/02/18 12:00 Intake & Output 10/01/18 10/02/18 10/03/18 06:59 06:59 06:59 Intake Total 950 270 Output Total 2550 1400 Balance -1600 -1130 Weight 68.5 kg 68.2 kg General appearance: PRESENT: no acute distress, well-developed Head exam: PRESENT: normocephalic Respiratory exam: PRESENT: rales - Fine rales at bases, symmetrical, unlabored. ABSENT: rhonchi, stridor, wheezes Cardiovascular exam: PRESENT: RRR, +S1, +S2, systolic murmur - 3/6 GI/Abdominal exam: PRESENT: normal bowel sounds, soft. ABSENT: distended, tenderness Extremities exam: PRESENT: pedal edema Neurological exam: PRESENT: alert, awake, oriented to person, oriented to place, oriented to time, oriented to situation, CN II-XII grossly intact Psychiatric exam: PRESENT: flat affect Results Laboratory Results: 10/02/18 07:50 10/02/18 07:50 10/01/18 10/02/18 10/02/18 20:20 07:50 07:50 WBC 5.3 RBC 3.16 L Hgb 8.8 L Hct 25.8 L MCV 82 MCH 27.7 MCHC 33.9 RDW 16.0 H Plt Count 156 Seg Neutrophils % 74.9 Lymphocytes % 14.1 Monocytes % 8.7 Eosinophils % 1.8 Basophils % 0.5 Absolute Neutrophils 4.0 Absolute Lymphocytes 0.7 Absolute Monocytes 0.5 Absolute Eosinophils 0.1 Absolute Basophils 0.0 Retic Count (auto) 3.91 H Absolute Retic 0.123 H Sodium 140.3 Potassium 4.3 Chloride 109 H Carbon Dioxide 26 Anion Gap 5 BUN 28 H Creatinine 1.33 H Est GFR ( Amer) 50 L Est GFR (Non-Af Amer) 41 L Glucose 137 H Calcium 8.3 L Magnesium 1.9 Iron 75.0 TIBC 216 L % Saturation 35 Ferritin 32.80 Vitamin B12 348.0 Folate 17.00 Urine Color YELLOW Urine Appearance SLIGHTLY-CLOUDY Urine pH 5.0 Ur Specific [place] 1.009 Urine Protein >=500 H Urine Glucose (UA) NEGATIVE Urine Ketones NEGATIVE Urine Blood NEGATIVE Urine Nitrite NEGATIVE Ur Leukocyte Esterase TRACE H Urine WBC (Auto) 6 Urine RBC (Auto) 7 09/28/18 09/29/18 09/29/18 22:55 01:52 01:52 Creatine Kinase 197 H CK-MB (CK-2) 2.27 Troponin I < 0.012 < 0.012 NT-Pro-B Natriuret Pep 4310 H 09/29/18 09/29/18 09/29/18 07:58 07:58 15:00 Creatine Kinase 149 H 120 CK-MB (CK-2) 1.45 Troponin I < 0.012 NT-Pro-B Natriuret Pep 09/29/18 09/30/18 15:00 04:06 Creatine Kinase CK-MB (CK-2) 0.99 Troponin I < 0.012 NT-Pro-B Natriuret Pep 4370 H Impressions: Chest X-Ray 09/28/18 20:26 IMPRESSION: Bilateral pleural effusions. Assessment & Plan - Diagnosis (1) Hypertension Qualifiers: Hypertension type: essential hypertension Qualified Code(s): I10 - Essential (primary) hypertension Is this a current diagnosis for this admission?: Yes Plan: Continues to slowly improve. Clonidine has been added to the regimen. (2) Chronic kidney disease (CKD), stage III (moderate) Is this a current diagnosis for this admission?: Yes Plan: Please also see nephrology consult. Further workup ongoing. Nephrology suggest no change in her current regimen. (3) Acute on chronic diastolic CHF (congestive heart failure), NYHA class 2 Is this a current diagnosis for this admission?: Yes Plan: History of grade 2/4 diastolic failure. Currently stable. Does not appear to have active pulmonary congestion. (4) Bilateral lower extremity edema Is this a current diagnosis for this admission?: Yes Plan: Slowly improving (5) Diabetes mellitus type 2 in obese Is this a current diagnosis for this admission?: Yes Plan: Most glucoses remain under 200. Occasional Accu-Chek greater than 200. Monitor for another day before making changes. - Time Time Spent with patient: Less than 15 minutes Medications reviewed and adjusted accordingly: Yes Anticipated discharge: Home
--- NOTE | 2018-10-02 17:33 | PDOC PROGRESS REPORT ---
Subjective Progress Note for:: 10/02/18 Subjective:: Patient is doing fine and continues to diuresis with current diuretic regimen. She is currently collecting 24-hour urine until tonight. Blood work has been collected but currently almost all pending except for mildly elevated ESR and low ferritin level. She states that she does not have much appetite. Her blood pressure is improved. Reason For Visit: HEART FAILURE Physical Exam Vital Signs: Temp Pulse Resp BP Pulse Ox 97.8 F 74 16 157/58 H 97 10/02/18 15:21 10/02/18 15:21 10/02/18 15:21 10/02/18 15:21 10/02/18 15:21 Intake & Output 10/01/18 10/02/18 10/03/18 06:59 06:59 06:59 Intake Total 950 270 Output Total 2550 1400 Balance -1600 -1130 Weight 68.5 kg 68.2 kg Exam: General appearance: PRESENT: no acute distress, cooperative, well-developed, well-nourished Head exam: PRESENT: atraumatic, normocephalic Eye exam: PRESENT: conjunctiva pale, PERRLA. ABSENT: scleral icterus Neck exam: ABSENT: JVD Respiratory exam: PRESENT: Diminished breath sounds. ABSENT: crackles, rales, rhonchi, unlabored, wheezes Cardiovascular exam: PRESENT: Regular rate rhythm -+S1, +S2. ABSENT: diastolic murmur, systolic murmur GI/Abdominal exam: PRESENT: normal bowel sounds, soft. ABSENT: guarding, mass, tenderness Extremities exam: Grade 4 bilateral lower extremity pitting edema Neurological exam: PRESENT: alert, awake, oriented to person, place and time. Skin exam: PRESENT: dry, warm, Results Laboratory Results: 10/02/18 07:50 10/02/18 07:50 10/01/18 10/02/18 10/02/18 20:20 07:50 07:50 WBC 5.3 RBC 3.16 L Hgb 8.8 L Hct 25.8 L MCV 82 MCH 27.7 MCHC 33.9 RDW 16.0 H Plt Count 156 Seg Neutrophils % 74.9 Lymphocytes % 14.1 Monocytes % 8.7 Eosinophils % 1.8 Basophils % 0.5 Absolute Neutrophils 4.0 Absolute Lymphocytes 0.7 Absolute Monocytes 0.5 Absolute Eosinophils 0.1 Absolute Basophils 0.0 Retic Count (auto) 3.91 H Absolute Retic 0.123 H Sodium 140.3 Potassium 4.3 Chloride 109 H Carbon Dioxide 26 Anion Gap 5 BUN 28 H Creatinine 1.33 H Est GFR ( Amer) 50 L Est GFR (Non-Af Amer) 41 L Glucose 137 H Calcium 8.3 L Magnesium 1.9 Iron 75.0 TIBC 216 L % Saturation 35 Ferritin 32.80 Vitamin B12 348.0 Folate 17.00 Urine Color YELLOW Urine Appearance SLIGHTLY-CLOUDY Urine pH 5.0 Ur Specific [place] 1.009 Urine Protein >=500 H Urine Glucose (UA) NEGATIVE Urine Ketones NEGATIVE Urine Blood NEGATIVE Urine Nitrite NEGATIVE Ur Leukocyte Esterase TRACE H Urine WBC (Auto) 6 Urine RBC (Auto) 7 09/28/18 09/29/18 09/29/18 22:55 01:52 01:52 Creatine Kinase 197 H CK-MB (CK-2) 2.27 Troponin I < 0.012 < 0.012 NT-Pro-B Natriuret Pep 4310 H 09/29/18 09/29/18 09/29/18 07:58 07:58 15:00 Creatine Kinase 149 H 120 CK-MB (CK-2) 1.45 Troponin I < 0.012 NT-Pro-B Natriuret Pep 09/29/18 09/30/18 15:00 04:06 Creatine Kinase CK-MB (CK-2) 0.99 Troponin I < 0.012 NT-Pro-B Natriuret Pep 4370 H Impressions: Chest X-Ray 09/28/18 20:26 IMPRESSION: Bilateral pleural effusions. Assessment & Plan - Diagnosis (1) Nephrotic range proteinuria Is this a current diagnosis for this admission?: Yes Plan: Differential diagnosis include diabetic nephropathy versus chronic glomerular disease versus paraproteinemia. Workup is underway. 24-hour urine currently b eing collected and will be done tonight. I talked to the patient about doing CT-guided percutaneous kidney biopsy and she agreed to proceed so we will try to schedule it tomorrow. Risks and benefits discussed with patient. Follow-up pending workup results. (2) Acute kidney injury superimposed on chronic kidney disease Is this a current diagnosis for this admission?: Yes Plan: Currently stable. (3) Hypertension Qualifiers: Hypertension type: essential hypertension Qualified Code(s): I10 - Essential (primary) hypertension Is this a current diagnosis for this admission?: Yes Plan: Improved. Continue current regimen. (4) Acute on chronic diastolic CHF (congestive heart failure), NYHA class 2 Is this a current diagnosis for this admission?: Yes (5) Bilateral lower extremity edema Is this a current diagnosis for this admission?: Yes Plan: On Bumex and metolazone , continue the same dose. (6) Diabetes mellitus type 2 in nonobese Is this a current diagnosis for this admission?: Yes (7) Chronic kidney disease (CKD), stage III (moderate) Is this a current diagnosis for this admission?: Yes (8) Anemia Qualifiers: Anemia type: iron deficiency Iron deficiency anemia type: inadequate dietary iron intake Qualified Code(s): D50.8 - Other iron deficiency anemias Is this a current diagnosis for this admission?: Yes Plan: Comparison is slightly low so we will start with ferrous sulfate 325 mg p.o. daily. (9) Bilateral pleural effusion Is this a current diagnosis for this admission?: Yes (10) Diabetic gastroparesis Is this a current diagnosis for this admission?: Yes (11) Mitral regurgitation Qualifiers: Cardiac valve disease etiology: nonrheumatic Qualified Code(s): I34.0 - Nonrheumatic mitral (valve) insufficiency Is this a current diagnosis for this admission?: Yes - Notes Notes: Plan for kidney biopsy discussed with the nurse so she can check with radiology department for schedule and if they want any other labs prior to biopsy. - Time Time with patient: Greater than 35 minutes
[2018-10-02] MEDS: INSULIN GLARGINE,HUM.REC.ANLOG 300 UNIT/3 ML INSULN.PEN SUBCUT SCH (21:28)
[2018-10-02] MEDS: LISINOPRIL 10 MG TABLET PO SCH (21:31)
[2018-10-02] MEDS: ATORVASTATIN CALCIUM 40 MG TABLET PO SCH (21:31)
[2018-10-02] MEDS: AMLODIPINE BESYLATE 10 MG TABLET PO SCH (21:31)
[2018-10-02] MEDS: ISOSORBIDE MONONITRATE 30 MG TAB.ER.24H PO SCH (21:32)
[2018-10-02 21:39] LABS: 24 HOUR URINE PROTEIN RESULT 4934 mg/day (42-225); URINE PROTEIN 339.1 mg/dL (<12)
[2018-10-03] MEDS: BUMETANIDE INJ/PF 1 MG/4 ML SDV IV SCH ×3 (05:57→21:56)
[2018-10-03] MEDS: CLONIDINE HCL 0.1 MG TABLET PO SCH ×3 (05:58→22:00)
[2018-10-03] MEDS: HYDROCODONE/ACETAMINOPHEN 10-325 MG TABLET PO SCH ×5 (05:58→23:35)
[2018-10-03 06:00] LABS: HEMATOCRIT 25.6 % (36.0-47.0); HEMOGLOBIN 8.8 g/dL (12.0-15.5); MEAN CORPUSCULAR HEMOGLOBIN 28.2 pg (27.0-33.4); MEAN CORPUSCULAR HGB CONC 34.5 g/dL (32.0-36.0); MEAN CORPUSCULAR VOLUME 82 fl (80-97); PLATELET COUNT 147 10^3/uL (150-450); RED BLOOD COUNT 3.13 10^6/uL (3.72-5.28); RED CELL DISTRIBUTION WIDTH 16.2 % (11.5-14.0); WHITE BLOOD COUNT 4.9 10^3/uL (4.0-10.5)
[2018-10-03 06:13] LABS: INTERNATIONAL RATION (INR) 0.95; PARTIAL THROMBOPLASTIN TIME 28.1 SEC (23.5-35.8); PROTHROMBIN TIME 13.2 SEC (11.4-15.4)
[2018-10-03 06:27] LABS: ALBUMIN 2.6 g/dL (3.5-5.0); ANION GAP 5 (5-19); BLOOD UREA NITROGEN 30 mg/dL (7-20); CALCIUM 8.2 mg/dL (8.4-10.2); CARBON DIOXIDE 26 mmol/L (22-30); CHLORIDE 109 mmol/L (98-107); GLUCOSE 158 mg/dL (75-110); PHOSPHORUS 4.4 mg/dL (2.5-4.5); POTASSIUM 4.1 mmol/L (3.6-5.0); SODIUM 140.3 mmol/L (137-145)
[2018-10-03 06:39] LABS: HEPATITS B SURFACE ANTIGEN Negative (Negative)
[2018-10-03 06:39] LABS: COMPLEMENT C4 33 mg/dL (14-44)
[2018-10-03 07:10] LABS: HEPATITIS B CORE AB TOT Negative (Negative)
[2018-10-03 07:11] LABS: COMPLEMENT C3 132 mg/dL (82-167)
[2018-10-03] MEDS ORDERED: LIDOCAINE 1% INJ-PF (10 MG/ML) 30 ML SDV ONE (08:20)
[2018-10-03] MEDS ORDERED: MIDAZOLAM 2 MG/2 ML INJ ONE (08:20)
[2018-10-03] MEDS ORDERED: FENTANYL CITRATE INJ/PF 100 MCG/2 ML AMPUL ONE (08:20)
--- NOTE | 2018-10-03 09:38 | RADIOLOGY REPORT (SQ) ---
EXAM DESCRIPTION: CT BIOPSY RENAL; CT NEEDLE PLACEMENT COMPLETED DATE/TIME: 10/03/2018 9:09 am; 10/03/2018 9:08 am REASON FOR STUDY: Nephrotic syndrome; NEPHROTIC SYNDROME COMPARISON: CT chest 05/15/2018 RADIATION DOSE: CT Rad equipment meets quality standard of care and radiation dose reduction techniq ues were employed. CTDIvol: 4.0 - 12.4 mGy. DLP: 489 mGy-cm. mGy. LIMITATIONS: None. PROCEDURE: After obtaining informed consent and explaining the risks and benefits of conscious sedat ion,the patient agreed to the procedure. Preliminary CT scanning to localize the biopsy site was performed. A site was marked on the right lo wer pole kidney and time out was performed. Procedure was performed using CT fluoroscopy. Total expo sure time: 3.[address] fluoroscopic images were obtained and saved to PACS. IV conscious sedation was administered and physician direction by the registered nurse using 1 millig collin of Versed and 50 micrograms of fentanyl. Physiologic monitoring was provided before, during, and after sedation. The total sedation time was 30 minutes. Documentation face to face time, the performing proceduralist, spent monitoring the patient: 10 minut es. After sterile skin prep with ChloraPrep, local lidocaine for skin and deep tissue anesthesia, the rig ht lower pole kidney was localized. A coaxial 18/19 needle was used to obtain 5 cores of tissue from the right lower pole kidney. The biopsy tract was embolized with Gelfoam. All CT scanners at this facility use dose modulation, iterative reconstruction, and/or weight based d osing when appropriate to reduce radiation dose to as low as reasonably achievable (ALARA). [facility]: Dose Right [facility]: CareDose [facility]: Dose Right [facility]: Teradose 4D [facility]: [employer] FINDINGS: There were no immediate complications. Specimen was carried to cytology on sterile saline gauze and submitted to the egg smeller for processing. Pathology is pending at the time of dict ation. IMPRESSION: CT GUIDED RIGHT KIDNEY CORTICAL BIOPSY. IV CONSCIOUS SEDATION COMMENT: PATHOLOGY IS PENDING Patient medication list reviewed:Yes- Quality ID# [id number]:Eligible professional attests to documenting in the medical record they obtained, updated, or reviewed the patient's current medications.. TECHNICAL DOCUMENTATION: JOB ID: [id number] Quality ID #[id number]: Final reports for procedures using fluoroscopy that document radiation exposure pamela justyna, or exposure time and number of fluorographic images (if radiation exposure indices are not avail able) Quality ID # [id number]: Final reports with documentation of one or more dose reduction techniques (e.g., Au tomated exposure control, adjustment of the mA and/or kV according to patient size, use of iterative reconstruction technique) 2010 [employer]- All Rights Reserved Reading location - IP/workstation name: [email or web address]
--- NOTE | 2018-10-03 09:38 | RADIOLOGY REPORT (SQ) ---
EXAM DESCRIPTION: CT BIOPSY RENAL; CT NEEDLE PLACEMENT COMPLETED DATE/TIME: 10/03/2018 9:09 am; 10/03/2018 9:08 am REASON FOR STUDY: Nephrotic syndrome; NEPHROTIC SYNDROME COMPARISON: CT chest 05/15/2018 RADIATION DOSE: CT Rad equipment meets quality standard of care and radiation dose reduction techniq ues were employed. CTDIvol: 4.0 - 12.4 mGy. DLP: 489 mGy-cm. mGy. LIMITATIONS: None. PROCEDURE: After obtaining informed consent and explaining the risks and benefits of conscious sedat ion,the patient agreed to the procedure. Preliminary CT scanning to localize the biopsy site was performed. A site was marked on the right lo wer pole kidney and time out was performed. Procedure was performed using CT fluoroscopy. Total expo sure time: 3.[address] fluoroscopic images were obtained and saved to PACS. IV conscious sedation was administered and physician direction by the registered nurse using 1 millig collin of Versed and 50 micrograms of fentanyl. Physiologic monitoring was provided before, during, and after sedation. The total sedation time was 30 minutes. Documentation face to face time, the performing proceduralist, spent monitoring the patient: 10 minut es. After sterile skin prep with ChloraPrep, local lidocaine for skin and deep tissue anesthesia, the rig ht lower pole kidney was localized. A coaxial 18/19 needle was used to obtain 5 cores of tissue from the right lower pole kidney. The biopsy tract was embolized with Gelfoam. All CT scanners at this facility use dose modulation, iterative reconstruction, and/or weight based d osing when appropriate to reduce radiation dose to as low as reasonably achievable (ALARA). [facility]: Dose Right [facility]: CareDose [facility]: Dose Right [facility]: Teradose 4D [facility]: [employer] FINDINGS: There were no immediate complications. Specimen was carried to cytology on sterile saline gauze and submitted to the project management it specialist for processing. Pathology is pending at the time of dict ation. IMPRESSION: CT GUIDED RIGHT KIDNEY CORTICAL BIOPSY. IV CONSCIOUS SEDATION COMMENT: PATHOLOGY IS PENDING Patient medication list reviewed:Yes- Quality ID# [id number]:Eligible professional attests to documenting in the medical record they obtained, updated, or reviewed the patient's current medications.. TECHNICAL DOCUMENTATION: JOB ID: [id number] Quality ID #[id number]: Final reports for procedures using fluoroscopy that document radiation exposure pamela justyna, or exposure time and number of fluorographic images (if radiation exposure indices are not avail able) Quality ID # [id number]: Final reports with documentation of one or more dose reduction techniques (e.g., Au tomated exposure control, adjustment of the mA and/or kV according to patient size, use of iterative reconstruction technique) 2010 [employer]- All Rights Reserved Reading location - IP/workstation name: [email or web address][email or web address]
[2018-10-03] MEDS: DOCUSATE SODIUM 100 MG CAPSULE PO SCH (10:02)
[2018-10-03] MEDS: METOLAZONE 2.5 MG TABLET PO SCH ×2 (10:02→17:32)
[2018-10-03] MEDS: FAMOTIDINE 20 MG TABLET PO SCH ×2 (10:02→22:00)
[2018-10-03] MEDS: CHOLECALCIFEROL (D3) 1,000 UNIT TABLET PO SCH (10:02)
[2018-10-03] MEDS: FERROUS SULFATE 325 MG TABLET PO SCH (10:02)
[2018-10-03] MEDS: AMOXICILLIN TR/POT CLAVULANATE 500-125 MG TAB PO SCH ×3 (10:03→17:31)
[2018-10-03] MEDS: NEBIVOLOL HCL 10 MG TABLET PO SCH (10:03)
[2018-10-03] MEDS: ASCORBIC ACID 500 MG TABLET PO SCH (10:04)
[2018-10-03] MEDS: SPIRONOLACTONE 25 MG TABLET PO SCH (10:07)
[2018-10-03] MEDS: PANTOT AC/MIN OIL/PET HY-PHL OINT 50 GM TOP SCH ×2 (10:07→17:35)
[2018-10-03 10:47] LABS: GLOMERULAR BASMENT MEMBRANE AB 2 units (0-20)
[2018-10-03] MEDS: ONDANSETRON 4 MG TAB.RAPDIS PO PRN (11:04)
[2018-10-03] MEDS ORDERED: PROMETHAZINE HCL INJ 25 MG/1 ML VIAL ONE (11:30)
--- NOTE | 2018-10-03 12:15 | PDOC PROGRESS REPORT ---
Subjective Progress Note for:: 10/03/18 Subjective:: The patient is back from her kidney biopsy. Since returning she has had increased nausea. Reason For Visit: HEART FAILURE Physical Exam Vital Signs: Temp Pulse Resp BP Pulse Ox 97.8 F 73 16 196/67 H 98 10/03/18 11:24 10/03/18 11:24 10/03/18 11:24 10/03/18 11:24 10/03/18 11:24 Intake & Output 10/02/18 10/03/18 10/04/18 06:59 06:59 06:59 Intake Total 270 520 Output Total 1400 1300 Balance -1130 -780 Weight 68.2 kg 68.5 kg General appearance: PRESENT: other - Very sleepy. Respiratory exam: PRESENT: rales - Faint rales right base, symmetrical, unlabored. ABSENT: rhonchi, wheezes Cardiovascular exam: PRESENT: RRR, +S1, +S2, systolic murmur - 4 / 6 GI/Abdominal exam: PRESENT: normal bowel sounds, soft. ABSENT: tenderness Extremities exam: PRESENT: pedal edema Neurological exam: ABSENT: awake - Wakes with multiple verbal stimuli Psychiatric exam: PRESENT: appropriate affect - Affect reflects her current nausea Results Laboratory Results: 10/03/18 05:36 10/03/18 05:36 10/02/18 10/03/18 10/03/18 21:00 05:36 05:36 WBC 4.9 RBC 3.13 L Hgb 8.8 L Hct 25.6 L MCV 82 MCH 28.2 MCHC 34.5 RDW 16.2 H Plt Count 147 L Sodium 140.3 Potassium 4.1 Chloride 109 H Carbon Dioxide 26 Anion Gap 5 BUN 30 H Creatinine 1.30 H Est GFR ( Amer) 51 L Est GFR (Non-Af Amer) 42 L Glucose 158 H Calcium 8.2 L Phosphorus 4.4 Albumin 2.6 L Ur 24 Hour Volume 1455 Ur Total Protein 24 Hr 4934 H 09/28/18 09/29/18 09/29/18 22:55 01:52 01:52 Creatine Kinase 197 H CK-MB (CK-2) 2.27 Troponin I < 0.012 < 0.012 NT-Pro-B Natriuret Pep 4310 H 09/29/18 09/29/18 09/29/18 07:58 07:58 15:00 Creatine Kinase 149 H 120 CK-MB (CK-2) 1.45 Troponin I < 0.012 NT-Pro-B Natriuret Pep 09/29/18 09/30/18 15:00 04:06 Creatine Kinase CK-MB (CK-2) 0.99 Troponin I < 0.012 NT-Pro-B Natriuret Pep 4370 H Impressions: Chest X-Ray 09/28/18 20:26 IMPRESSION: Bilateral pleural effusions. Renal Biopsy CT 10/02/18 00:00 IMPRESSION: CT GUIDED RIGHT KIDNEY CORTICAL BIOPSY. IV CONSCIOUS SEDATION Guidance Needle Placement CT 10/03/18 00:00 IMPRESSION: CT GUIDED RIGHT KIDNEY CORTICAL BIOPSY. IV CONSCIOUS SEDATION Assessment & Plan - Diagnosis (1) Hypertension Qualifiers: Hypertension type: essential hypertension Qualified Code(s): I10 - Essential (primary) hypertension Is this a current diagnosis for this admission?: Yes Plan: Systolic blood pressure still consistently greater than 150. Clonidine has been added. Await further modifications per nephrology. (2) Chronic kidney disease (CKD), stage III (moderate) Is this a current diagnosis for this admission?: Yes Plan: Biopsy obtained today. Serologies pending. (3) Acute on chronic diastolic CHF (congestive heart failure), NYHA class 2 Is this a current diagnosis for this admission?: Yes Plan: Continue diuresis with metolazone 3 times a day and Zaroxolyn twice daily. (4) Bilateral lower extremity edema Is this a current diagnosis for this admission?: Yes Plan: Improved. Continue same regimen. (5) Diabetes mellitus type 2 in obese Is this a current diagnosis for this admission?: Yes Plan: Glucose readings are slightly higher today. Could be related to stress of the biopsy. I have increased her Lantus by 2 units. Continue to monitor. - Time Time Spent with patient: Less than 15 minutes Medications reviewed and adjusted accordingly: Yes
[2018-10-03 14:39] LABS: CYTOPLASMIC (C-ANCA) <1:20 titer (Neg:<1:20)
[2018-10-03] MEDS: HYDRALAZINE HCL INJ/PF 20 MG/1 ML SDV IV PRN (15:35)
[2018-10-03 15:37] LABS: A/G RATIO 0.9 (0.7-1.7); ALBUMIN 2 2.3 g/dL (2.9-4.4); ALPHA-2-GLOBULIN 2 1.1 g/dL (0.4-1.0); BETA GLOBULINS 0.7 g/dL (0.7-1.3); GAMMA GLOBULIN 0.5 g/dL (0.4-1.8); GLOBULIN TOTAL 2.5 g/dL (2.2-3.9); MONOCLONAL SPIKE Not Observed g/dL (Not Observ); PROTEIN TOTAL SERUM 4.8 g/dL (6.0-8.5)
--- NOTE | 2018-10-03 17:24 | PDOC PROGRESS REPORT ---
Subjective Progress Note for:: 10/03/18 Subjective:: Patient underwent a percutaneous CT-guided kidney biopsy this morning care of the interventional radiologist. After coming back patient was not feeling very well. She was nauseated and her blood pressure was up to systolic of 200+. She was given Zofran followed by IV Phenergan and IV hydralazine. Finally she settled down and is currently sleeping. Blood pressure has come down with that hydralazine. His kidney biopsy was reportedly uneventful and currently there is no note of any blood in the urine. Reason For Visit: HEART FAILURE Physical Exam Vital Signs: Temp Pulse Resp BP Pulse Ox 98.7 F 80 16 148/50 H 97 10/03/18 15:08 10/03/18 15:08 10/03/18 15:08 10/03/18 16:00 10/03/18 15:08 Intake & Output 10/02/18 10/03/18 10/04/18 06:59 06:59 06:59 Intake Total 270 520 Output Total 1400 1300 Balance -1130 -780 Weight 68.2 kg 68.5 kg Exam: General appearance: PRESENT: Sleeping but arousable Head exam: PRESENT: atraumatic, normocephalic Eye exam: PRESENT: conjunctiva pale, PERRLA. ABSENT: scleral icterus Neck exam: ABSENT: JVD Respiratory exam: PRESENT: Normal breath sounds. ABSENT: crackles, rales, rhonchi, unlabored, wheezes Cardiovascular exam: PRESENT: Regular rate rhythm -+S1, +S2. ABSENT: diastolic murmur, systolic murmur GI/Abdominal exam: PRESENT: normal bowel sounds, soft. ABSENT: guarding, mass, tenderness Extremities exam: Grade 1 bilateral lower extremity pitting edema Neurological exam: PRESENT: alert, awake, oriented to person, place and time. Skin exam: PRESENT: dry, warm, Results Laboratory Results: 10/03/18 05:36 10/03/18 05:36 10/02/18 10/03/18 10/03/18 21:00 05:36 05:36 WBC 4.9 RBC 3.13 L Hgb 8.8 L Hct 25.6 L MCV 82 MCH 28.2 MCHC 34.5 RDW 16.2 H Plt Count 147 L Sodium 140.3 Potassium 4.1 Chloride 109 H Carbon Dioxide 26 Anion Gap 5 BUN 30 H Creatinine 1.30 H Est GFR ( Amer) 51 L Est GFR (Non-Af Amer) 42 L Glucose 158 H Calcium 8.2 L Phosphorus 4.4 Albumin 2.6 L Ur 24 Hour Volume 1455 Ur Total Protein 24 Hr 4934 H 09/28/18 09/29/18 09/29/18 22:55 01:52 01:52 Creatine Kinase 197 H CK-MB (CK-2) 2.27 Troponin I < 0.012 < 0.012 NT-Pro-B Natriuret Pep 4310 H 09/29/18 09/29/18 09/29/18 07:58 07:58 15:00 Creatine Kinase 149 H 120 CK-MB (CK-2) 1.45 Troponin I < 0.012 NT-Pro-B Natriuret Pep 09/29/18 09/30/18 15:00 04:06 Creatine Kinase CK-MB (CK-2) 0.99 Troponin I < 0.012 NT-Pro-B Natriuret Pep 4370 H Impressions: Chest X-Ray 09/28/18 20:26 IMPRESSION: Bilateral pleural effusions. Renal Biopsy CT 10/02/18 00:00 IMPRESSION: CT GUIDED RIGHT KIDNEY CORTICAL BIOPSY. IV CONSCIOUS SEDATION Guidance Needle Placement CT 10/03/18 00:00 IMPRESSION: CT GUIDED RIGHT KIDNEY CORTICAL BIOPSY. IV CONSCIOUS SEDATION Assessment & Plan - Diagnosis (1) Nephrotic range proteinuria Is this a current diagnosis for this admission?: Yes Plan: Differential diagnosis include diabetic nephropathy versus chronic glomerular disease versus paraproteinemia. Status post CT-guided percutaneous kidney biopsy done today, 10/03/2018. So far the workup that were resulted including ne gative ALEA, negative anti-GBM, normal C3 and C4, negative hepatitis B surface antigen and low titer of hepatitis B surface antibody with negative hepatitis B core antibody and pending hepatitis C virus. Protein electrophoresis are still pending. Anka are still not pending. Her 24-hour urine showed a volume of 1455 with 24-hour urine protein of 4134 mg and creatinine clearance which is pending. (2) Acute kidney injury superimposed on chronic kidney disease Is this a current diagnosis for this admission?: Yes Plan: Currently stable. (3) Hypertension Qualifiers: Hypertension type: essential hypertension Qualified Code(s): I10 - Essential (primary) hypertension Is this a current diagnosis for this admission?: Yes Plan: Blood pressure was elevated earlier post kidney biopsy which could be just secondary to either the anxiety or pain due to the procedure. May give hydralazine IV as needed as ordered. I will not change her blood pressure medications today. But if it still elevated tomorrow I will raise her clonidine dose. (4) Acute on chronic diastolic CHF (congestive heart failure), NYHA class 2 Is this a current diagnosis for this admission?: Yes Plan: Currently stable. (5) Bilateral lower extremity edema Is this a current diagnosis for this admission?: Yes Plan: On Bumex and metolazone , continue the same dose. (6) Diabetes mellitus type 2 in nonobese Is this a current diagnosis for this admission?: Yes (7) Chronic kidney disease (CKD), stage III (moderate) Is this a current diagnosis for this admission?: Yes (8) Anemia Qualifiers: Anemia type: iron deficiency Iron deficiency anemia type: inadequate dietary iron intake Qualified Code(s): D50.8 - Other iron deficiency anemias Is this a current diagnosis for this admission?: Yes Plan: Comparison is slightly low so we will start with ferrous sulfate 325 mg p.o. daily. I plan to give the patient Procrit but due to the elevated blood pressure today I will hold on for that for tomorrow (9) Bilateral pleural effusion Is this a current diagnosis for this admission?: Yes (10) Diabetic gastroparesis Is this a current diagnosis for this admission?: Yes (11) Mitral regurgitation Qualifiers: Cardiac valve disease etiology: nonrheumatic Qualified Code(s): I34.0 - Nonrheumatic mitral (valve) insufficiency Is this a current diagnosis for this admission?: Yes - Time Time with patient: 15-25 minutes
[2018-10-03 17:53] LABS: CREATININE 1.3 mg/dL (0.52-1.25)
[2018-10-03] MEDS: INSULIN GLARGINE,HUM.REC.ANLOG 300 UNIT/3 ML INSULN.PEN SUBCUT SCH (21:58)
[2018-10-03] MEDS: ATORVASTATIN CALCIUM 40 MG TABLET PO SCH (22:00)
[2018-10-03] MEDS: LISINOPRIL 10 MG TABLET PO SCH (22:01)
[2018-10-03] MEDS: AMLODIPINE BESYLATE 10 MG TABLET PO SCH (22:01)
[2018-10-03] MEDS: ISOSORBIDE MONONITRATE 30 MG TAB.ER.24H PO SCH (22:01)
[2018-10-03] MEDS: PROMETHAZINE HCL INJ 25 MG/1 ML VIAL IV PRN (22:07)
[2018-10-04] MEDS: BUMETANIDE INJ/PF 1 MG/4 ML SDV IV SCH ×2 (05:03→17:41)
[2018-10-04] MEDS: PROMETHAZINE HCL INJ 25 MG/1 ML VIAL IV PRN ×2 (05:03→10:56)
[2018-10-04] MEDS: HYDROCODONE/ACETAMINOPHEN 10-325 MG TABLET PO SCH ×4 (05:07→23:41)
[2018-10-04] MEDS: CLONIDINE HCL 0.1 MG TABLET PO SCH (05:08)
[2018-10-04 05:29] LABS: ABSOLUTE EOSINOPHILS # (AUTO) 0.1 10^3/uL (0.0-0.6); ABSOLUTE LYMPHOCYTES (AUTO) 0.8 10^3/uL (0.5-4.7); ABSOLUTE MONOCYTES (AUTO) 0.6 10^3/uL (0.1-1.4); ABSOLUTE NEUT (AUTO) 4.2 10^3/uL (1.7-8.2); BASOPHILS % (AUTO) 0.5 % (0-2); EOSINOPHILS % (AUTO) 1.8 % (0-6); HEMOGLOBIN 9.6 g/dL (12.0-15.5); LYMPHOCYTES % (AUTO) 14.6 % (13-45); MEAN CORPUSCULAR HGB CONC 34.4 g/dL (32.0-36.0); MEAN CORPUSCULAR VOLUME 81 fl (80-97); MONOCYTES % (AUTO) 10.1 % (3-13); PLATELET COUNT 136 10^3/uL (150-450); RED BLOOD COUNT 3.43 10^6/uL (3.72-5.28); RED CELL DISTRIBUTION WIDTH 15.8 % (11.5-14.0); TOTAL CELLS COUNTED % (AUTO) 100 %; WHITE BLOOD COUNT 5.7 10^3/uL (4.0-10.5)
[2018-10-04 05:52] LABS: ANION GAP 6 (5-19); BLOOD UREA NITROGEN 26 mg/dL (7-20); CALCIUM 8.4 mg/dL (8.4-10.2); CARBON DIOXIDE 27 mmol/L (22-30); CHLORIDE 109 mmol/L (98-107); GLUCOSE 150 mg/dL (75-110); POTASSIUM 3.7 mmol/L (3.6-5.0); SODIUM 141.6 mmol/L (137-145)
[2018-10-04] MEDS: AMOXICILLIN TR/POT CLAVULANATE 500-125 MG TAB PO SCH ×3 (09:04→17:41)
[2018-10-04] MEDS: NEBIVOLOL HCL 10 MG TABLET PO SCH (09:04)
[2018-10-04] MEDS: FAMOTIDINE 20 MG TABLET PO SCH ×2 (09:25→22:11)
[2018-10-04] MEDS: METOLAZONE 2.5 MG TABLET PO SCH ×2 (09:25→17:41)
[2018-10-04] MEDS: DOCUSATE SODIUM 100 MG CAPSULE PO SCH (09:25)
[2018-10-04] MEDS: FERROUS SULFATE 325 MG TABLET PO SCH (09:25)
[2018-10-04] MEDS: CHOLECALCIFEROL (D3) 1,000 UNIT TABLET PO SCH (09:25)
[2018-10-04] MEDS: ONDANSETRON 4 MG TAB.RAPDIS PO PRN (09:25)
[2018-10-04] MEDS: ASCORBIC ACID 500 MG TABLET PO SCH (09:25)
[2018-10-04] MEDS: PANTOT AC/MIN OIL/PET HY-PHL OINT 50 GM TOP SCH ×2 (09:26→17:41)
[2018-10-04] MEDS: SPIRONOLACTONE 25 MG TABLET PO SCH (09:29)
[2018-10-04 10:38] LABS: HEPATITIS C QUANTITATION HCV Not Detected IU/mL (.)
[2018-10-04] MEDS: FONDAPARINUX SODIUM INJ 2.5 MG/0.5 ML DISP.SYRIN SUBCUT SCH (10:55)
[2018-10-04] MEDS: HYDRALAZINE HCL INJ/PF 20 MG/1 ML SDV IV PRN ×2 (10:55→23:49)
--- NOTE | 2018-10-04 12:35 | PDOC PROGRESS REPORT ---
Subjective Progress Note for:: 10/04/18 Subjective:: Patient is still nauseated although slightly better today than yesterday. This is relieved by Phenergan but not Zofran. Still not feeling very well. Blood pressure still goes up to the systolic blood pressure of 170s. Her leg swelling is slowly improving. Reason For Visit: HEART FAILURE Physical Exam Vital Signs: Temp Pulse Resp BP Pulse Ox 99.0 F 80 16 144/48 H 95 10/04/18 11:44 10/04/18 11:44 10/04/18 11:44 10/04/18 11:44 10/04/18 11:44 Intake & Output 10/03/18 10/04/18 10/05/18 06:59 06:59 06:59 Intake Total 520 320 Output Total 1300 2300 Balance -780 -1980 Weight 68.5 kg 61.8 kg Exam: General appearance: PRESENT: Appears ill, no acute distress, cooperative, fairly-developed, fairly-nourished Head exam: PRESENT: atraumatic, normocephalic Eye exam: PRESENT: conjunctiva pale, PERRLA. ABSENT: scleral icterus Neck exam: ABSENT: JVD Respiratory exam: PRESENT: Diminished breath sounds. ABSENT: crackles, rales, rhonchi, unlabored, wheezes Cardiovascular exam: PRESENT: Regular rate rhythm -+S1, +S2. Grade 3/6 systolic murmur GI/Abdominal exam: PRESENT: normal bowel sounds, soft. ABSENT: guarding, mass, tenderness Extremities exam: Improved grade 2 bilateral lower extremity pitting edema Neurological exam: PRESENT: alert, awake, oriented to person, place and time. Skin exam: PRESENT: dry, warm, Results Laboratory Results: 10/04/18 04:36 10/04/18 04:36 10/03/18 10/04/18 10/04/18 17:27 04:36 04:36 WBC 5.7 RBC 3.43 L Hgb 9.6 L Hct 28.0 L MCV 81 MCH 28.0 MCHC 34.4 RDW 15.8 H Plt Count 136 L Seg Neutrophils % 73.0 Lymphocytes % 14.6 Monocytes % 10.1 Eosinophils % 1.8 Basophils % 0.5 Absolute Neutrophils 4.2 Absolute Lymphocytes 0.8 Absolute Monocytes 0.6 Absolute Eosinophils 0.1 Absolute Basophils 0.0 Sodium 141.6 Potassium 3.7 Chloride 109 H Carbon Dioxide 27 Anion Gap 6 BUN 26 H Creatinine 1.30 H 1.16 Est GFR ( Amer) 58 L Est GFR (Non-Af Amer) 48 L Glucose 150 H Calcium 8.4 Ur 24 Hour Volume 1455 09/28/18 09/29/18 09/29/18 22:55 01:52 01:52 Creatine Kinase 197 H CK-MB (CK-2) 2.27 Troponin I < 0.012 < 0.012 NT-Pro-B Natriuret Pep 4310 H 09/29/18 09/29/18 09/29/18 07:58 07:58 15:00 Creatine Kinase 149 H 120 CK-MB (CK-2) 1.45 Troponin I < 0.012 NT-Pro-B Natriuret Pep 09/29/18 09/30/18 15:00 04:06 Creatine Kinase CK-MB (CK-2) 0.99 Troponin I < 0.012 NT-Pro-B Natriuret Pep 4370 H Impressions: Chest X-Ray 09/28/18 20:26 IMPRESSION: Bilateral pleural effusions. Renal Biopsy CT 10/02/18 00:00 IMPRESSION: CT GUIDED RIGHT KIDNEY CORTICAL BIOPSY. IV CONSCIOUS SEDATION Guidance Needle Placement CT 10/03/18 00:00 IMPRESSION: CT GUIDED RIGHT KIDNEY CORTICAL BIOPSY. IV CONSCIOUS SEDATION Assessment & Plan - Diagnosis (1) Nephrotic range proteinuria Is this a current diagnosis for this admission?: Yes Plan: Differential diagnosis include diabetic nephropathy versus chronic glomerular disease versus paraproteinemia. Status post CT-guided percutaneous kidney biopsy done 10/03/2018. So far the workup that were resulted including negative ALEA, negative anti-GBM, normal C3 and C4, negative hepatitis B surface antigen and low titer of hepatitis B surface antibody(patient confirmed she had hepatitis B vaccination previously) with negative hepatitis B core antibody and pending hepatitis C virus. Protein electrophoresis are still pending. ANCA are still not pending. Her 24-hour urine showed a volume of 1455 with 24-hour urine protein of 4934 mg and creatinine clearance of 31. We will follow-up kidney biopsy report. (2) Acute kidney injury superimposed on chronic kidney disease Is this a current diagnosis for this admission?: Yes Plan: Currently improving. (3) Hypertension Qualifiers: Hypertension type: essential hypertension Qualified Code(s): I10 - Essential (primary) hypertension Is this a current diagnosis for this admission?: Yes Plan: Blood pressure still spikes so I will increase the clonidine to 0.2 mg daily p.o. every 8hrs. (4) Bilateral lower extremity edema Is this a current diagnosis for this admission?: Yes Plan: On Bumex and metolazone. Since the patient's lower extremity edema is improving I will decrease her Bumex to 1 mg IV every 12 hours and continue the same metolazone twice a day. (5) Anemia Qualifiers: Anemia type: iron deficiency Iron deficiency anemia type: inadequate dietary iron intake Qualified Code(s): D50.8 - Other iron deficiency anemias Is this a current diagnosis for this admission?: Yes Plan: Ferritin is slightly low so we will start with ferrous sulfate 325 mg p.o. daily. Because of nausea since yesterday I will hold the ferrous sulfate for now. Will give her Procrit 20,000 units subcutaneously x1 dose today. (6) Nausea and vomiting Qualifiers: Vomiting type: bilious vomiting Qualified Code(s): R11.14 - Bilious vomiting Plan: Could be due to the medication during conscious sedation doing kidney biopsy yesterday. Ferrous sulfate can also be contributory. Continue Phenergan as needed. Will hold ferrous sulfate for now. (7) Acute on chronic diastolic CHF (congestive heart failure), NYHA class 2 Is this a current diagnosis for this admission?: Yes Plan: Currently stable. (8) Diabetes mellitus type 2 in nonobese Is this a current diagnosis for this admission?: Yes (9) Chronic kidney disease (CKD), stage III (moderate) Is this a current diagnosis for this admission?: Yes (10) Bilateral pleural effusion Is this a current diagnosis for this admission?: Yes (11) Diabetic gastroparesis Is this a current diagnosis for this admission?: Yes (12) Mitral regurgitation Qualifiers: Cardiac valve disease etiology: nonrheumatic Qualified Code(s): I34.0 - Nonrheumatic mitral (valve) insufficiency Is this a current diagnosis for this admission?: Yes - Notes Notes: Starting Sunday Dr. Ellison will be covering nephrology service so he will be following up the patient. Discussed the case with Dr. Martinez today. - Time Time with patient: Greater than 35 minutes
[2018-10-04] MEDS: CLONIDINE HCL 0.2 MG TABLET PO SCH ×2 (13:09→22:10)
[2018-10-04] MEDS ORDERED: CLONIDINE HCL 0.1 MG TABLET PO SCH (14:00)
[2018-10-04] MEDS ORDERED: EPOETIN ALFA INJ 20000 UNIT/1 ML VIAL (RENAL) SUBCUT ONE (14:00)
[2018-10-04 14:48] LABS: ATYPICAL PANCA <1:20 titer (Neg:<1:20); PERINUCLEAR (P-ANCA) <1:20 titer (Neg:<1:20)
--- NOTE | 2018-10-04 15:57 | PDOC PROGRESS REPORT ---
Subjective Progress Note for:: 10/04/18 Subjective:: Patient is resting comfortably. Still having some discomfort at the biopsy site. Less nausea than yesterday. Reason For Visit: HEART FAILURE Physical Exam Vital Signs: Temp Pulse Resp BP Pulse Ox 99.0 F 80 16 144/48 H 95 10/04/18 11:44 10/04/18 11:44 10/04/18 11:44 10/04/18 11:44 10/04/18 11:44 Intake & Output 10/03/18 10/04/18 10/05/18 06:59 06:59 06:59 Intake Total 520 320 Output Total 1300 2300 Balance -780 -1980 Weight 68.5 kg 61.8 kg General appearance: PRESENT: no acute distress, cooperative Head exam: PRESENT: normocephalic Neck exam: PRESENT: other - Under the left side of the mandible there is a angiomatous-like lesion that is depressed into the skin. I did not appreciate any lymph nodes in the area. There did not appear to be any extension of the lesion subcutaneously. It was difficult to tell if this lesion was tethered to subcutaneous tissue or not. There is no drainage. Respiratory exam: PRESENT: rales, symmetrical, unlabored. ABSENT: wheezes Cardiovascular exam: PRESENT: RRR, +S1, +S2, systolic murmur GI/Abdominal exam: PRESENT: normal bowel sounds, soft. ABSENT: tenderness Neurological exam: PRESENT: alert, awake, oriented to person, oriented to place, oriented to time, oriented to situation, CN II-XII grossly intact Psychiatric exam: PRESENT: flat affect. ABSENT: agitated, anxious Skin exam: PRESENT: other Results Laboratory Results: 10/04/18 04:36 10/04/18 04:36 10/02/18 10/03/18 10/04/18 07:50 17:27 04:36 WBC 5.7 RBC 3.43 L Hgb 9.6 L Hct 28.0 L MCV 81 MCH 28.0 MCHC 34.4 RDW 15.8 H Plt Count 136 L Seg Neutrophils % 73.0 Lymphocytes % 14.6 Monocytes % 10.1 Eosinophils % 1.8 Basophils % 0.5 Absolute Neutrophils 4.2 Absolute Lymphocytes 0.8 Absolute Monocytes 0.6 Absolute Eosinophils 0.1 Absolute Basophils 0.0 Sodium Potassium Chloride Carbon Dioxide Anion Gap BUN Creatinine 1.30 H Est GFR ( Amer) Est GFR (Non-Af Amer) Glucose Calcium Total Protein 4.8 L Albumin 2.3 L Ur 24 Hour Volume 1455 10/04/18 04:36 WBC RBC Hgb Hct MCV MCH MCHC RDW Plt Count Seg Neutrophils % Lymphocytes % Monocytes % Eosinophils % Basophils % Absolute Neutrophils Absolute Lymphocytes Absolute Monocytes Absolute Eosinophils Absolute Basophils Sodium 141.6 Potassium 3.7 Chloride 109 H Carbon Dioxide 27 Anion Gap 6 BUN 26 H Creatinine 1.16 Est GFR ( Amer) 58 L Est GFR (Non-Af Amer) 48 L Glucose 150 H Calcium 8.4 Total Protein Albumin Ur 24 Hour Volume 09/28/18 09/29/18 09/29/18 22:55 01:52 01:52 Creatine Kinase 197 H CK-MB (CK-2) 2.27 Troponin I < 0.012 < 0.012 NT-Pro-B Natriuret Pep 4310 H 09/29/18 09/29/18 09/29/18 07:58 07:58 15:00 Creatine Kinase 149 H 120 CK-MB (CK-2) 1.45 Troponin I < 0.012 NT-Pro-B Natriuret Pep 09/29/18 09/30/18 15:00 04:06 Creatine Kinase CK-MB (CK-2) 0.99 Troponin I < 0.012 NT-Pro-B Natriuret Pep 4370 H Impressions: Chest X-Ray 09/28/18 20:26 IMPRESSION: Bilateral pleural effusions. Renal Biopsy CT 10/02/18 00:00 IMPRESSION: CT GUIDED RIGHT KIDNEY CORTICAL BIOPSY. IV CONSCIOUS SEDATION Guidance Needle Placement CT 10/03/18 00:00 IMPRESSION: CT GUIDED RIGHT KIDNEY CORTICAL BIOPSY. IV CONSCIOUS SEDATION Assessment & Plan - Diagnosis (1) Hypertension Qualifiers: Hypertension type: essential hypertension Qualified Code(s): I10 - Essential (primary) hypertension Is this a current diagnosis for this admission?: Yes Plan: Clonidine was increased today by Dr. Nichols. Continue to monitor blood pressure. (2) Chronic kidney disease (CKD), stage III (moderate) Is this a current diagnosis for this admission?: Yes Plan: Kidney biopsy results pending. (3) Acute on chronic diastolic CHF (congestive heart failure), NYHA class 2 Is this a current diagnosis for this admission?: Yes Plan: Bumex is down to 1 mg twice daily. Still with a negative fluid balance. (4) Bilateral lower extremity edema Is this a current diagnosis for this admission?: Yes Plan: Slowly improving (5) Diabetes mellitus type 2 in obese Is this a current diagnosis for this admission?: Yes Plan: We will add controlled carbohydrates to her cardiac diet. Accu-Cheks are less than 200 consistently. (6) Granuloma of skin Is this a current diagnosis for this admission?: Yes Plan: Under the area of the left mandible there is a granuloma looking lesion. It is depressed into the tissue. Possibly tethered. No significant inflammation. No drainage. Consider CT scan to further define the lesion. - Time Time Spent with patient: Less than 15 minutes Medications reviewed and adjusted accordingly: Yes Anticipated discharge: Home
[2018-10-04] MEDS: INSULIN LISPRO 100 UNIT/ML 3 ML VIAL SUBCUT PRN (17:47)
[2018-10-04] MEDS: AMLODIPINE BESYLATE 10 MG TABLET PO SCH (22:10)
[2018-10-04] MEDS: LISINOPRIL 10 MG TABLET PO SCH (22:11)
[2018-10-04] MEDS: ISOSORBIDE MONONITRATE 30 MG TAB.ER.24H PO SCH (22:11)
[2018-10-04] MEDS: ATORVASTATIN CALCIUM 40 MG TABLET PO SCH (22:11)
[2018-10-04] MEDS: INSULIN GLARGINE,HUM.REC.ANLOG 300 UNIT/3 ML INSULN.PEN SUBCUT SCH (22:12)
[2018-10-05 05:13] LABS: ABSOLUTE EOSINOPHILS # (AUTO) 0.2 10^3/uL (0.0-0.6); ABSOLUTE LYMPHOCYTES (AUTO) 0.9 10^3/uL (0.5-4.7); ABSOLUTE MONOCYTES (AUTO) 0.5 10^3/uL (0.1-1.4); ABSOLUTE NEUT (AUTO) 3.8 10^3/uL (1.7-8.2); BASOPHILS % (AUTO) 0.6 % (0-2); EOSINOPHILS % (AUTO) 3.1 % (0-6); HEMATOCRIT 27.4 % (36.0-47.0); HEMOGLOBIN 9.4 g/dL (12.0-15.5); LYMPHOCYTES % (AUTO) 16.2 % (13-45); MEAN CORPUSCULAR HEMOGLOBIN 27.8 pg (27.0-33.4); MEAN CORPUSCULAR HGB CONC 34.1 g/dL (32.0-36.0); MEAN CORPUSCULAR VOLUME 81 fl (80-97); MONOCYTES % (AUTO) 9.4 % (3-13); PLATELET COUNT 131 10^3/uL (150-450); RED BLOOD COUNT 3.37 10^6/uL (3.72-5.28); RED CELL DISTRIBUTION WIDTH 16.3 % (11.5-14.0); SEGMENTED NEUTROPHILS % (AUTO) 70.7 % (42-78); TOTAL CELLS COUNTED % (AUTO) 100 %; WHITE BLOOD COUNT 5.4 10^3/uL (4.0-10.5)
[2018-10-05 05:37] LABS: ANION GAP 7 (5-19); BLOOD UREA NITROGEN 28 mg/dL (7-20); CALCIUM 8.1 mg/dL (8.4-10.2); CARBON DIOXIDE 25 mmol/L (22-30); CHLORIDE 109 mmol/L (98-107); GLUCOSE 155 mg/dL (75-110); POTASSIUM 3.8 mmol/L (3.6-5.0); SODIUM 140.8 mmol/L (137-145)
[2018-10-05] MEDS: CLONIDINE HCL 0.2 MG TABLET PO SCH ×3 (05:46→21:47)
[2018-10-05] MEDS: HYDROCODONE/ACETAMINOPHEN 10-325 MG TABLET PO SCH ×3 (05:47→17:34)
[2018-10-05] MEDS: BUMETANIDE INJ/PF 1 MG/4 ML SDV IV SCH ×2 (05:48→17:34)
[2018-10-05] MEDS: PROMETHAZINE HCL INJ 25 MG/1 ML VIAL IV PRN (06:05)
[2018-10-05] MEDS: AMOXICILLIN TR/POT CLAVULANATE 500-125 MG TAB PO SCH ×3 (07:57→17:34)
[2018-10-05] MEDS: NEBIVOLOL HCL 10 MG TABLET PO SCH (07:58)
[2018-10-05] MEDS ORDERED: (PENDING PHARMACY ID) (Alendronate Sodium [Fosamax 70 Mg Tablet] 70 MG) PO SCH (10:00)
[2018-10-05] MEDS: HYDRALAZINE HCL INJ/PF 20 MG/1 ML SDV IV PRN (10:13)
[2018-10-05] MEDS: FONDAPARINUX SODIUM INJ 2.5 MG/0.5 ML DISP.SYRIN SUBCUT SCH (10:13)
[2018-10-05] MEDS: DOCUSATE SODIUM 100 MG CAPSULE PO SCH (10:14)
[2018-10-05] MEDS: SPIRONOLACTONE 25 MG TABLET PO SCH (10:14)
[2018-10-05] MEDS: FAMOTIDINE 20 MG TABLET PO SCH (10:14)
[2018-10-05] MEDS: CHOLECALCIFEROL (D3) 1,000 UNIT TABLET PO SCH (10:14)
[2018-10-05] MEDS: PANTOT AC/MIN OIL/PET HY-PHL OINT 50 GM TOP SCH ×2 (10:14→17:35)
[2018-10-05] MEDS: ASCORBIC ACID 500 MG TABLET PO SCH (10:14)
[2018-10-05] MEDS: METOLAZONE 2.5 MG TABLET PO SCH ×2 (10:14→17:34)
[2018-10-05] MEDS: ONDANSETRON 4 MG TAB.RAPDIS PO PRN (10:49)
--- NOTE | 2018-10-05 11:35 | PDOC PROGRESS REPORT ---
Subjective Progress Note for:: 10/05/18 Subjective:: The patient is slightly more awake today. She still feels nauseated. Her blood pressure was high again this morning. Reason For Visit: HEART FAILURE Physical Exam Vital Signs: Temp Pulse Resp BP Pulse Ox 98.5 F 74 16 184/63 H 95 10/05/18 08:19 10/05/18 08:19 10/05/18 08:19 10/05/18 08:19 10/05/18 08:19 Intake & Output 10/04/18 10/05/18 10/06/18 06:59 06:59 06:59 Intake Total 320 563 Output Total 2300 2100 Balance -1979 -153 Weight 61.8 kg 61.8 kg General appearance: PRESENT: no acute distress - Mild discomfort., cooperative Head exam: PRESENT: normocephalic Eye exam: PRESENT: conjunctiva pale Neck exam: PRESENT: other - Granuloma-like lesion left submandibular area Respiratory exam: PRESENT: rales - Fine rales especially right base, symmetrical, unlabored. ABSENT: rhonchi, wheezes Cardiovascular exam: PRESENT: RRR, +S1, +S2, systolic murmur - 3/6 GI/Abdominal exam: PRESENT: normal bowel sounds, soft. ABSENT: distended, tenderness Extremities exam: ABSENT: pedal edema - Edema significantly improved Neurological exam: PRESENT: alert, awake, oriented to person, oriented to place, oriented to time, oriented to situation, CN II-XII grossly intact Psychiatric exam: PRESENT: flat affect. ABSENT: agitated, anxious Results Laboratory Results: 10/05/18 04:28 10/05/18 04:28 10/02/18 10/05/18 10/05/18 07:50 04:28 04:28 WBC 5.4 RBC 3.37 L Hgb 9.4 L Hct 27.4 L MCV 81 MCH 27.8 MCHC 34.1 RDW 16.3 H Plt Count 131 L Seg Neutrophils % 70.7 Lymphocytes % 16.2 Monocytes % 9.4 Eosinophils % 3.1 Basophils % 0.6 Absolute Neutrophils 3.8 Absolute Lymphocytes 0.9 Absolute Monocytes 0.5 Absolute Eosinophils 0.2 Absolute Basophils 0.0 Sodium 140.8 Potassium 3.8 Chloride 109 H Carbon Dioxide 25 Anion Gap 7 BUN 28 H Creatinine 1.24 Est GFR ( Amer) 54 L Est GFR (Non-Af Amer) 45 L Glucose 155 H Calcium 8.1 L Total Protein 4.8 L Albumin 2.3 L 09/28/18 09/29/18 09/29/18 22:55 01:52 01:52 Creatine Kinase 197 H CK-MB (CK-2) 2.27 Troponin I < 0.012 < 0.012 NT-Pro-B Natriuret Pep 4310 H 09/29/18 09/29/18 09/29/18 07:58 07:58 15:00 Creatine Kinase 149 H 120 CK-MB (CK-2) 1.45 Troponin I < 0.012 NT-Pro-B Natriuret Pep 09/29/18 09/30/18 15:00 04:06 Creatine Kinase CK-MB (CK-2) 0.99 Troponin I < 0.012 NT-Pro-B Natriuret Pep 4370 H Impressions: Chest X-Ray 09/28/18 20:26 IMPRESSION: Bilateral pleural effusions. Renal Biopsy CT 10/02/18 00:00 IMPRESSION: CT GUIDED RIGHT KIDNEY CORTICAL BIOPSY. IV CONSCIOUS SEDATION Guidance Needle Placement CT 10/03/18 00:00 IMPRESSION: CT GUIDED RIGHT KIDNEY CORTICAL BIOPSY. IV CONSCIOUS SEDATION Assessment & Plan - Diagnosis (1) Hypertension Qualifiers: Hypertension type: essential hypertension Qualified Code(s): I10 - Essential (primary) hypertension Is this a current diagnosis for this admission?: Yes Plan: Still less than adequately controlled. Dr. Nichols increased her clonidine to 0.1 mg twice daily. She did require an as needed dose of hydralazine today. This does seem to be effective. We need to be careful with the hydralazine and clonidine as the patient will likely get orthostatic. I will defer the next medication adjustment to nephrology. (2) Chronic kidney disease (CKD), stage III (moderate) Is this a current diagnosis for this admission?: Yes Plan: Biopsy obtained. Specimen sent to [facility] for immunofluorescence studies. Renal function stable. (3) Acute on chronic diastolic CHF (congestive heart failure), NYHA class 2 Is this a current diagnosis for this admission?: Yes Plan: Significantly improved with diuresis. (4) Bilateral lower extremity edema Is this a current diagnosis for this admission?: Yes Plan: Markedly improved. Continue current regimen. (5) Diabetes mellitus type 2 in obese Is this a current diagnosis for this admission?: Yes Plan: Glucose well controlled on current regimen. Because of her dyspepsia her appetite has not been great. Now that a proton pump inhibitor has been added she may need an adjustment if her diet increases. (6) Granuloma of skin Is this a current diagnosis for this admission?: Yes Plan: Stable. Consider biopsy as an outpatient. (7) Gastroesophageal reflux disease Qualifiers: Esophagitis presence: without esophagitis Qualified Code(s): K21.9 - Gastro-esophageal reflux disease without esophagitis Is this a current diagnosis for this admission?: Yes Plan: The patient takes omeprazole at home. I discontinue the Pepcid and started lansoprazole. Hopefully this will give her better relief. - Time Time Spent with patient: Less than 15 minutes Medications reviewed and adjusted accordingly: Yes Anticipated discharge: Home
[2018-10-05] MEDS: INSULIN LISPRO 100 UNIT/ML 3 ML VIAL SUBCUT PRN (11:59)
[2018-10-05] MEDS ORDERED: LANSOPRAZOLE 30 MG TAB.RAP.DR PO ONE (12:00)
[2018-10-05] MEDS: LISINOPRIL 10 MG TABLET PO SCH (21:47)
[2018-10-05] MEDS: AMLODIPINE BESYLATE 10 MG TABLET PO SCH (21:51)
[2018-10-05] MEDS: ATORVASTATIN CALCIUM 40 MG TABLET PO SCH (21:51)
[2018-10-05] MEDS: ISOSORBIDE MONONITRATE 30 MG TAB.ER.24H PO SCH (21:52)
[2018-10-05] MEDS: INSULIN GLARGINE,HUM.REC.ANLOG 300 UNIT/3 ML INSULN.PEN SUBCUT SCH (21:53)
[2018-10-05] MEDS: MORPHINE SULFATE 10 MG/ML INJ IV PRN (22:00)
[2018-10-06] MEDS: HYDROCODONE/ACETAMINOPHEN 10-325 MG TABLET PO SCH ×2 (00:58→08:54)
[2018-10-06 05:24] LABS: ABSOLUTE EOSINOPHILS # (AUTO) 0.2 10^3/uL (0.0-0.6); ABSOLUTE LYMPHOCYTES (AUTO) 0.9 10^3/uL (0.5-4.7); ABSOLUTE MONOCYTES (AUTO) 0.6 10^3/uL (0.1-1.4); ABSOLUTE NEUT (AUTO) 4.3 10^3/uL (1.7-8.2); BASOPHILS % (AUTO) 0.6 % (0-2); EOSINOPHILS % (AUTO) 3.2 % (0-6); HEMATOCRIT 27.6 % (36.0-47.0); HEMOGLOBIN 9.5 g/dL (12.0-15.5); LYMPHOCYTES % (AUTO) 15.5 % (13-45); MEAN CORPUSCULAR HEMOGLOBIN 28.1 pg (27.0-33.4); MEAN CORPUSCULAR HGB CONC 34.5 g/dL (32.0-36.0); MEAN CORPUSCULAR VOLUME 82 fl (80-97); MONOCYTES % (AUTO) 9.4 % (3-13); PLATELET COUNT 123 10^3/uL (150-450); RED BLOOD COUNT 3.39 10^6/uL (3.72-5.28); RED CELL DISTRIBUTION WIDTH 16.4 % (11.5-14.0); SEGMENTED NEUTROPHILS % (AUTO) 71.3 % (42-78); TOTAL CELLS COUNTED % (AUTO) 100 %
[2018-10-06 06:01] LABS: ANION GAP 6 (5-19); BLOOD UREA NITROGEN 26 mg/dL (7-20); CALCIUM 8.1 mg/dL (8.4-10.2); CARBON DIOXIDE 26 mmol/L (22-30); CHLORIDE 106 mmol/L (98-107); GLUCOSE 193 mg/dL (75-110); SODIUM 138.4 mmol/L (137-145)
[2018-10-06] MEDS: BUMETANIDE INJ/PF 1 MG/4 ML SDV IV SCH ×2 (06:48→17:28)
[2018-10-06] MEDS: LANSOPRAZOLE 30 MG TAB.RAP.DR PO SCH (06:49)
[2018-10-06] MEDS: CLONIDINE HCL 0.2 MG TABLET PO SCH ×3 (06:49→22:54)
[2018-10-06] MEDS: AMOXICILLIN TR/POT CLAVULANATE 500-125 MG TAB PO SCH ×3 (08:57→17:27)
[2018-10-06] MEDS: NEBIVOLOL HCL 10 MG TABLET PO SCH (08:57)
[2018-10-06] MEDS: DOCUSATE SODIUM 100 MG CAPSULE PO SCH (09:00)
[2018-10-06] MEDS: FONDAPARINUX SODIUM INJ 2.5 MG/0.5 ML DISP.SYRIN SUBCUT SCH (09:04)
[2018-10-06] MEDS: CHOLECALCIFEROL (D3) 1,000 UNIT TABLET PO SCH (09:05)
[2018-10-06] MEDS: METOLAZONE 2.5 MG TABLET PO SCH ×2 (09:05→17:28)
[2018-10-06] MEDS: ASCORBIC ACID 500 MG TABLET PO SCH (09:05)
[2018-10-06] MEDS: SPIRONOLACTONE 25 MG TABLET PO SCH (09:07)
[2018-10-06] MEDS: PANTOT AC/MIN OIL/PET HY-PHL OINT 50 GM TOP SCH ×2 (09:08→17:21)
[2018-10-06] MEDS: PROMETHAZINE HCL INJ 25 MG/1 ML VIAL IV PRN ×2 (09:17→20:52)
--- NOTE | 2018-10-06 16:28 | PDOC PROGRESS REPORT ---
Subjective Progress Note for:: 10/06/18 Subjective:: sitting on the side of the bed- states she still has some nausea- other stiles no new acute complaints at this time. she's sad- wants to know why she keeps going into heart failure. Reason For Visit: HEART FAILURE Physical Exam Vital Signs: Temp Pulse Resp BP Pulse Ox 98.0 F 73 12 182/54 H 99 10/06/18 11:38 10/06/18 11:38 10/06/18 08:59 10/06/18 11:38 10/06/18 11:38 Intake & Output 10/05/18 10/06/18 10/07/18 06:59 06:59 06:59 Intake Total 563 675 Output Total 2100 1800 Balance -1537 -1125 Weight 136 lb 3.931 oz 136 lb 3.931 oz General appearance: PRESENT: no acute distress Head exam: PRESENT: atraumatic, normocephalic Eye exam: PRESENT: EOMI, PERRLA. ABSENT: scleral icterus Ear exam: PRESENT: normal external ear exam Neck exam: ABSENT: tracheal deviation Respiratory exam: PRESENT: clear to auscultation joshua, symmetrical Cardiovascular exam: PRESENT: +S1, +S2, systolic murmur Pulses: PRESENT: +1 pedal pulses bilateral GI/Abdominal exam: PRESENT: normal bowel sounds, soft. ABSENT: tenderness Extremities exam: PRESENT: +2 edema - 1-2+ edema- mid beaulieu to feeet- worst at the feet Neurological exam: PRESENT: alert, awake, oriented to person, oriented to place, oriented to time, oriented to situation, CN II-XII grossly intact Skin exam: PRESENT: dry, warm Results Laboratory Results: 10/06/18 04:35 10/06/18 04:35 10/06/18 10/06/18 04:35 04:35 WBC 6.0 RBC 3.39 L Hgb 9.5 L Hct 27.6 L MCV 82 MCH 28.1 MCHC 34.5 RDW 16.4 H Plt Count 123 L Seg Neutrophils % 71.3 Lymphocytes % 15.5 Monocytes % 9.4 Eosinophils % 3.2 Basophils % 0.6 Absolute Neutrophils 4.3 Absolute Lymphocytes 0.9 Absolute Monocytes 0.6 Absolute Eosinophils 0.2 Absolute Basophils 0.0 Sodium 138.4 Potassium 4.0 Chloride 106 Carbon Dioxide 26 Anion Gap 6 BUN 26 H Creatinine 1.22 Est GFR ( Amer) 55 L Est GFR (Non-Af Amer) 46 L Glucose 193 H Calcium 8.1 L 09/28/18 09/29/18 09/29/18 22:55 01:52 01:52 Creatine Kinase 197 H CK-MB (CK-2) 2.27 Troponin I < 0.012 < 0.012 NT-Pro-B Natriuret Pep 4310 H 09/29/18 09/29/18 09/29/18 07:58 07:58 15:00 Creatine Kinase 149 H 120 CK-MB (CK-2) 1.45 Troponin I < 0.012 NT-Pro-B Natriuret Pep 09/29/18 09/30/18 15:00 04:06 Creatine Kinase CK-MB (CK-2) 0.99 Troponin I < 0.012 NT-Pro-B Natriuret Pep 4370 H Impressions: Chest X-Ray 09/28/18 20:26 IMPRESSION: Bilateral pleural effusions. Renal Biopsy CT 10/02/18 00:00 IMPRESSION: CT GUIDED RIGHT KIDNEY CORTICAL BIOPSY. IV CONSCIOUS SEDATION Guidance Needle Placement CT 10/03/18 00:00 IMPRESSION: CT GUIDED RIGHT KIDNEY CORTICAL BIOPSY. IV CONSCIOUS SEDATION Assessment & Plan - Diagnosis (1) Acute on chronic diastolic CHF (congestive heart failure), NYHA class 2 Is this a current diagnosis for this admission?: Yes (2) Bilateral lower extremity edema Is this a current diagnosis for this admission?: Yes (3) Chronic kidney disease (CKD), stage III (moderate) Is this a current diagnosis for this admission?: Yes (4) Diabetes mellitus type 2 in nonobese Is this a current diagnosis for this admission?: Yes (5) Gastroesophageal reflux disease Qualifiers: Esophagitis presence: without esophagitis Qualified Code(s): K21.9 - Gastro-esophageal reflux disease without esophagitis Is this a current diagnosis for this admission?: Yes (6) Hypertension Qualifiers: Hypertension type: essential hypertension Qualified Code(s): I10 - Essential (primary) hypertension Is this a current diagnosis for this admission?: Yes - Plan Summary Plan Summary: Acute on chronic diastolic heart failure- on bumex 1mg BID- doing well- still having good UOP. -1.1L today. continue to diurese CKD- she had renal biopsy done on 10/03/18 and sent for path- no results yet. suspected renal disease complicating her CHF HTN- has been difficult to control it seems- Nephro is consulted- appreciate help- she's on multiple different medications- Clonidine 0.2 Q8h, norvasc 10mg, imdur 30mg, lisinopril 20mg, dystolic 20mg and aldactone 25mg. DM- c/w lantus 10u and SSI
[2018-10-06] MEDS: HYDRALAZINE HCL INJ/PF 20 MG/1 ML SDV IV PRN (18:38)
[2018-10-06] MEDS: INSULIN LISPRO 100 UNIT/ML 3 ML VIAL SUBCUT PRN (19:01)
[2018-10-06] MEDS: INSULIN GLARGINE,HUM.REC.ANLOG 300 UNIT/3 ML INSULN.PEN SUBCUT SCH (22:52)
[2018-10-06] MEDS: AMLODIPINE BESYLATE 10 MG TABLET PO SCH (22:53)
[2018-10-06] MEDS: LISINOPRIL 10 MG TABLET PO SCH (22:53)
[2018-10-06] MEDS: ISOSORBIDE MONONITRATE 30 MG TAB.ER.24H PO SCH (22:53)
[2018-10-06] MEDS: ATORVASTATIN CALCIUM 40 MG TABLET PO SCH (22:53)
[2018-10-07] MEDS: CLONIDINE HCL 0.2 MG TABLET PO SCH ×3 (06:28→21:47)
[2018-10-07] MEDS: BUMETANIDE INJ/PF 1 MG/4 ML SDV IV SCH (06:29)
[2018-10-07] MEDS: LANSOPRAZOLE 30 MG TAB.RAP.DR PO SCH (06:29)
[2018-10-07] MEDS ORDERED: HYDROCODONE/ACETAMINOPHEN 10-325 MG TABLET PO ONE (06:30)
[2018-10-07 06:38] LABS: ABSOLUTE EOSINOPHILS # (AUTO) 0.1 10^3/uL (0.0-0.6); ABSOLUTE MONOCYTES (AUTO) 0.6 10^3/uL (0.1-1.4); ABSOLUTE NEUT (AUTO) 5.2 10^3/uL (1.7-8.2); BASOPHILS % (AUTO) 0.5 % (0-2); EOSINOPHILS % (AUTO) 1.7 % (0-6); HEMATOCRIT 29.3 % (36.0-47.0); LYMPHOCYTES % (AUTO) 13.9 % (13-45); MEAN CORPUSCULAR HEMOGLOBIN 28.2 pg (27.0-33.4); MEAN CORPUSCULAR HGB CONC 34.2 g/dL (32.0-36.0); MEAN CORPUSCULAR VOLUME 82 fl (80-97); MONOCYTES % (AUTO) 9.1 % (3-13); PLATELET COUNT 126 10^3/uL (150-450); RED BLOOD COUNT 3.56 10^6/uL (3.72-5.28); RED CELL DISTRIBUTION WIDTH 16.9 % (11.5-14.0); SEGMENTED NEUTROPHILS % (AUTO) 74.8 % (42-78); TOTAL CELLS COUNTED % (AUTO) 100 %; WHITE BLOOD COUNT 6.9 10^3/uL (4.0-10.5)
[2018-10-07 06:59] LABS: BLOOD UREA NITROGEN 26 mg/dL (7-20); CALCIUM 8.4 mg/dL (8.4-10.2); GLUCOSE 187 mg/dL (75-110); POTASSIUM 3.8 mmol/L (3.6-5.0)
[2018-10-07 07:04] LABS: CARBON DIOXIDE 30 mmol/L (22-30); CHLORIDE 107 mmol/L (98-107)
[2018-10-07 07:08] LABS: ANION GAP 4 (5-19)
[2018-10-07] MEDS: NEBIVOLOL HCL 10 MG TABLET PO SCH (08:40)
[2018-10-07] MEDS: AMOXICILLIN TR/POT CLAVULANATE 500-125 MG TAB PO SCH ×3 (08:40→16:41)
[2018-10-07] MEDS: INSULIN LISPRO 100 UNIT/ML 3 ML VIAL SUBCUT PRN ×3 (08:43→17:53)
[2018-10-07] MEDS: ASCORBIC ACID 500 MG TABLET PO SCH (11:10)
[2018-10-07] MEDS: METOLAZONE 2.5 MG TABLET PO SCH ×2 (11:10→18:12)
[2018-10-07] MEDS: DOCUSATE SODIUM 100 MG CAPSULE PO SCH (11:10)
[2018-10-07] MEDS: FERROUS SULFATE 325 MG TABLET PO SCH (11:10)
[2018-10-07] MEDS: PANTOT AC/MIN OIL/PET HY-PHL OINT 50 GM TOP SCH ×2 (11:11→18:10)
[2018-10-07] MEDS: CHOLECALCIFEROL (D3) 1,000 UNIT TABLET PO SCH (11:11)
[2018-10-07] MEDS: SPIRONOLACTONE 25 MG TABLET PO SCH ×2 (11:11→21:47)
[2018-10-07] MEDS: HYDROCODONE/ACETAMINOPHEN 10-325 MG TABLET PO SCH ×2 (11:13→18:12)
[2018-10-07] MEDS: FONDAPARINUX SODIUM INJ 2.5 MG/0.5 ML DISP.SYRIN SUBCUT SCH (11:14)
--- NOTE | 2018-10-07 11:20 | PDOC PROGRESS REPORT ---
Subjective Progress Note for:: 10/07/18 Reason For Visit: Patient seen in the hospital today. Chart review done. Discussions were done earlier with Dr. Nichols who has transferred her care to [facility] for this week. Patient is a long-standing diabetic/hypertensive admitted with progressive anasarca and shortness of breath. She has responded very well to current management. She underwent a renal biopsy on Sunday and awaiting results on that. Her edema is markedly improved and so too the shortness of breath. No history of any chest pains, nausea vomiting. Bowels are regular. Labs and medications were reviewed with her. She admits to noncompliance with diet and medications especially those for diabetes. She says she has been better with her antihypertensives. She says she was diagnosed with hypertension in early 20s.She gives no symptoms to indicate a secondary hypertension on review. She had a renal Doppler done in May which was negative as per my review. Physical Exam Vital Signs: Temp Pulse Resp BP Pulse Ox 98.3 F 74 16 180/61 H 100 10/07/18 07:57 10/07/18 07:57 10/07/18 07:57 10/07/18 07:57 10/07/18 07:57 Intake & Output 10/06/18 10/07/18 10/08/18 06:59 06:59 06:59 Intake Total 675 874 Output Total 1800 2100 Balance -1125 -1226 Weight 61.8 kg General appearance: PRESENT: no acute distress Respiratory exam: PRESENT: clear to auscultation joshua. ABSENT: crackles, decreased breath sounds Cardiovascular exam: PRESENT: +S1, +S2, systolic murmur GI/Abdominal exam: PRESENT: normal bowel sounds, soft. ABSENT: organomegaly, renal bruit, tenderness Extremities exam: PRESENT: +1 edema Neurological exam: PRESENT: alert, awake, oriented to person, oriented to place Psychiatric exam: PRESENT: appropriate affect Skin exam: ABSENT: cyanosis, erythema, rash Results Laboratory Results: 10/07/18 05:53 10/07/18 05:53 10/07/18 10/07/18 05:53 05:53 WBC 6.9 RBC 3.56 L Hgb 10.0 L Hct 29.3 L MCV 82 MCH 28.2 MCHC 34.2 RDW 16.9 H Plt Count 126 L Seg Neutrophils % 74.8 Lymphocytes % 13.9 Monocytes % 9.1 Eosinophils % 1.7 Basophils % 0.5 Absolute Neutrophils 5.2 Absolute Lymphocytes 1.0 Absolute Monocytes 0.6 Absolute Eosinophils 0.1 Absolute Basophils 0.0 Sodium 141.0 Potassium 3.8 Chloride 107 Carbon Dioxide 30 Anion Gap 4 L BUN 26 H Creatinine 1.23 Est GFR ( Amer) 55 L Est GFR (Non-Af Amer) 45 L Glucose 187 H Calcium 8.4 09/28/18 09/29/18 09/29/18 22:55 01:52 01:52 Creatine Kinase 197 H CK-MB (CK-2) 2.27 Troponin I < 0.012 < 0.012 NT-Pro-B Natriuret Pep 4310 H 09/29/18 09/29/18 09/29/18 07:58 07:58 15:00 Creatine Kinase 149 H 120 CK-MB (CK-2) 1.45 Troponin I < 0.012 NT-Pro-B Natriuret Pep 09/29/18 09/30/18 15:00 04:06 Creatine Kinase CK-MB (CK-2) 0.99 Troponin I < 0.012 NT-Pro-B Natriuret Pep 4370 H Impressions: Chest X-Ray 09/28/18 20:26 IMPRESSION: Bilateral pleural effusions. Renal Biopsy CT 10/02/18 00:00 IMPRESSION: CT GUIDED RIGHT KIDNEY CORTICAL BIOPSY. IV CONSCIOUS SEDATION Guidance Needle Placement CT 10/03/18 00:00 IMPRESSION: CT GUIDED RIGHT KIDNEY CORTICAL BIOPSY. IV CONSCIOUS SEDATION Assessment & Plan - Diagnosis (1) Hypertensive urgency Plan: Still uncontrolled. Titrate lisinopril upwards. I am going to take her off the amlodipine currently. Will make further titrations as needed. Discussed with patient further and she is willing to proceed.Discussed with Chidi the treating nurse to give additional dose of the lisinopril now. (2) Nephrotic range proteinuria Is this a current diagnosis for this admission?: Yes Plan: Renal biopsy pending. Likely diabetic etiology. Serologies so far all negative. Titrate lisinopril upwards. (3) Acute kidney injury superimposed on chronic kidney disease Is this a current diagnosis for this admission?: Yes Plan: CKD stage III presently stable. (4) Acute on chronic diastolic CHF (congestive heart failure), NYHA class 2 Is this a current diagnosis for this admission?: Yes Plan: Presently compensating. She has had good response to diuresis.Keep her current diuretic regimen. Will monitor. (5) Diabetes mellitus type 2 in nonobese Is this a current diagnosis for this admission?: Yes Plan: Advised compliance with diet and medications. Advised the need for tight diabetic control for obvious reasons. (6) Aortic incompetence Qualifiers: Cardiac valve disease etiology: etiology unspecified Qualified Code(s): I35.1 - Nonrheumatic aortic (valve) insufficiency Plan: Moderate. Status quo. Unsure of etiology.
[2018-10-07] MEDS ORDERED: LISINOPRIL 10 MG TABLET PO ONE ×2 (12:00→15:30)
--- NOTE | 2018-10-07 15:46 | PDOC PROGRESS REPORT ---
Subjective Progress Note for:: 10/07/18 Subjective:: spoke with her this morning- she's doing well- states her swelling is getting better slowly. states she's sad that she's been in the hospital so many days and missed some holidays because of this. Reason For Visit: HEART FAILURE Physical Exam Vital Signs: Temp Pulse Resp BP Pulse Ox 98.3 F 74 16 180/61 H 100 10/07/18 07:57 10/07/18 07:57 10/07/18 07:57 10/07/18 07:57 10/07/18 07:57 Intake & Output 10/06/18 10/07/18 10/08/18 06:59 06:59 06:59 Intake Total 675 874 Output Total 1800 2100 Balance -1125 -1226 Weight 136 lb 3.931 oz General appearance: PRESENT: no acute distress Head exam: PRESENT: atraumatic, normocephalic Eye exam: PRESENT: EOMI, PERRLA. ABSENT: scleral icterus Ear exam: PRESENT: normal external ear exam Mouth exam: PRESENT: tongue midline Neck exam: ABSENT: tracheal deviation Respiratory exam: PRESENT: clear to auscultation joshua, symmetrical Cardiovascular exam: PRESENT: +S1, +S2 Pulses: PRESENT: +2 pedal pulses bilateral GI/Abdominal exam: PRESENT: normal bowel sounds, soft. ABSENT: tenderness Extremities exam: PRESENT: pedal edema, +1 edema - 1+ edema of the LE up to lower beaulieu- better than yesterday Neurological exam: PRESENT: alert, awake, oriented to person, oriented to place, oriented to time, oriented to situation, CN II-XII grossly intact Skin exam: PRESENT: dry, warm Results Laboratory Results: 10/07/18 05:53 10/07/18 05:53 10/07/18 10/07/18 05:53 05:53 WBC 6.9 RBC 3.56 L Hgb 10.0 L Hct 29.3 L MCV 82 MCH 28.2 MCHC 34.2 RDW 16.9 H Plt Count 126 L Seg Neutrophils % 74.8 Lymphocytes % 13.9 Monocytes % 9.1 Eosinophils % 1.7 Basophils % 0.5 Absolute Neutrophils 5.2 Absolute Lymphocytes 1.0 Absolute Monocytes 0.6 Absolute Eosinophils 0.1 Absolute Basophils 0.0 Sodium 141.0 Potassium 3.8 Chloride 107 Carbon Dioxide 30 Anion Gap 4 L BUN 26 H Creatinine 1.23 Est GFR ( Amer) 55 L Est GFR (Non-Af Amer) 45 L Glucose 187 H Calcium 8.4 09/28/18 09/29/18 09/29/18 22:55 01:52 01:52 Creatine Kinase 197 H CK-MB (CK-2) 2.27 Troponin I < 0.012 < 0.012 NT-Pro-B Natriuret Pep 4310 H 09/29/18 09/29/18 09/29/18 07:58 07:58 15:00 Creatine Kinase 149 H 120 CK-MB (CK-2) 1.45 Troponin I < 0.012 NT-Pro-B Natriuret Pep 09/29/18 09/30/18 15:00 04:06 Creatine Kinase CK-MB (CK-2) 0.99 Troponin I < 0.012 NT-Pro-B Natriuret Pep 4370 H Impressions: Chest X-Ray 09/28/18 20:26 IMPRESSION: Bilateral pleural effusions. Renal Biopsy CT 10/02/18 00:00 IMPRESSION: CT GUIDED RIGHT KIDNEY CORTICAL BIOPSY. IV CONSCIOUS SEDATION Guidance Needle Placement CT 10/03/18 00:00 IMPRESSION: CT GUIDED RIGHT KIDNEY CORTICAL BIOPSY. IV CONSCIOUS SEDATION Assessment & Plan - Diagnosis (1) Acute on chronic diastolic CHF (congestive heart failure), NYHA class 2 Is this a current diagnosis for this admission?: Yes (2) Bilateral lower extremity edema Is this a current diagnosis for this admission?: Yes (3) Chronic kidney disease (CKD), stage III (moderate) Is this a current diagnosis for this admission?: Yes (4) Diabetes mellitus type 2 in nonobese Is this a current diagnosis for this admission?: Yes (5) Gastroesophageal reflux disease Qualifiers: Esophagitis presence: without esophagitis Qualified Code(s): K21.9 - Tana ro-esophageal reflux disease without esophagitis Is this a current diagnosis for this admission?: Yes (6) Hypertension Qualifiers: Hypertension type: essential hypertension Qualified Code(s): I10 - E ssential (primary) hypertension Is this a current diagnosis for this admission?: Yes - Plan Summary Plan Summary: Acute on chronic diastolic heart failure- on IV bumex 1mg BID- still having good UOP. -1.1L today. i spoke with her today and she tells me we have changed her regimen since we are giving her IV bumex- i have asked if she would like for me try PO bumex to prepare for discharge in a few days- she's agreeable- will switch to PO Bumex 1mg BID and see how she does. CKD- she had renal biopsy done on 10/03/18 and sent for path- no results yet. suspected renal disease complicating her CHF. Nephrology is consulted and i appreciate their input HTN- has been difficult to control - Nephro is consulted- I appreciate help- she's on multiple different medications- Clonidine 0.2 Q8h, norvasc 10mg, imdur 30mg, lisinopril 20mg, dystolic 20mg and aldactone 25mg. today her meds were adjust to higher dose of lisinopril and discontinued her norvasc. DM- stable and noted- c/w lantus 10u and SSI disposition- i spoke with discharger planner intern about her- she lives with her son right now- going through a long divorce.
[2018-10-07] MEDS: PROMETHAZINE HCL INJ 25 MG/1 ML VIAL IV PRN (16:41)
[2018-10-07] MEDS: HYDRALAZINE HCL INJ/PF 20 MG/1 ML SDV IV PRN (20:01)
[2018-10-07] MEDS: MORPHINE SULFATE 10 MG/ML INJ IV PRN (20:09)
[2018-10-07] MEDS: BUMETANIDE 1 MG TABLET PO SCH (21:47)
[2018-10-07] MEDS: ISOSORBIDE MONONITRATE 30 MG TAB.ER.24H PO SCH (21:47)
[2018-10-07] MEDS: ATORVASTATIN CALCIUM 40 MG TABLET PO SCH (21:47)
[2018-10-07] MEDS: INSULIN GLARGINE,HUM.REC.ANLOG 300 UNIT/3 ML INSULN.PEN SUBCUT SCH (21:48)
[2018-10-07] MEDS ORDERED: LISINOPRIL 10 MG TABLET PO SCH (22:00)
[2018-10-08] MEDS: HYDROCODONE/ACETAMINOPHEN 10-325 MG TABLET PO SCH ×4 (00:21→17:55)
[2018-10-08] MEDS: LANSOPRAZOLE 30 MG TAB.RAP.DR PO SCH (05:24)
[2018-10-08] MEDS: CLONIDINE HCL 0.2 MG TABLET PO SCH ×3 (05:24→21:44)
[2018-10-08 05:25] LABS: BLOOD UREA NITROGEN 22 mg/dL (7-20); CALCIUM 8.2 mg/dL (8.4-10.2); GLUCOSE 175 mg/dL (75-110); POTASSIUM 3.6 mmol/L (3.6-5.0)
[2018-10-08 05:38] LABS: ANION GAP 5 (5-19); CARBON DIOXIDE 28 mmol/L (22-30); CHLORIDE 107 mmol/L (98-107); SODIUM 139.9 mmol/L (137-145)
[2018-10-08] MEDS: AMOXICILLIN TR/POT CLAVULANATE 500-125 MG TAB PO SCH ×2 (08:15→12:09)
[2018-10-08] MEDS: PROMETHAZINE HCL INJ 25 MG/1 ML VIAL IV PRN ×2 (08:15→17:54)
[2018-10-08] MEDS: NEBIVOLOL HCL 10 MG TABLET PO SCH (08:15)
[2018-10-08] MEDS: DOCUSATE SODIUM 100 MG CAPSULE PO SCH (09:14)
[2018-10-08] MEDS: BUMETANIDE 1 MG TABLET PO SCH ×2 (09:20→21:43)
[2018-10-08] MEDS: SPIRONOLACTONE 25 MG TABLET PO SCH ×2 (09:20→21:44)
[2018-10-08] MEDS: CHOLECALCIFEROL (D3) 1,000 UNIT TABLET PO SCH (09:21)
[2018-10-08] MEDS: ASCORBIC ACID 500 MG TABLET PO SCH (09:21)
[2018-10-08] MEDS: PANTOT AC/MIN OIL/PET HY-PHL OINT 50 GM TOP SCH ×2 (09:21→17:12)
[2018-10-08] MEDS: METOLAZONE 2.5 MG TABLET PO SCH ×2 (09:21→17:55)
[2018-10-08] MEDS: FERROUS SULFATE 325 MG TABLET PO SCH (09:21)
[2018-10-08] MEDS: MORPHINE SULFATE 10 MG/ML INJ IV PRN ×2 (09:26→21:44)
[2018-10-08] MEDS: INSULIN LISPRO 100 UNIT/ML 3 ML VIAL SUBCUT PRN (13:53)
[2018-10-08] MEDS: FONDAPARINUX SODIUM INJ 2.5 MG/0.5 ML DISP.SYRIN SUBCUT SCH (14:09)
[2018-10-08] MEDS ORDERED: CLONIDINE HCL 0.1 MG TABLET PO PRN (14:51)
--- NOTE | 2018-10-08 18:24 | PDOC PROGRESS REPORT ---
Subjective Progress Note for:: 10/08/18 Reason For Visit: Patient was seen today. She is generally doing well. Admits to intermittent anxiety symptoms. No complaints of any chest pain or shortness of breath. Labs and medications were reviewed with her. Her renal biopsy pathology is pending. Physical Exam Vital Signs: Temp Pulse Resp BP Pulse Ox 98.3 F 68 18 130/61 H 97 10/08/18 08:06 10/08/18 13:50 10/08/18 11:43 10/08/18 13:50 10/08/18 11:43 Intake & Output 10/07/18 10/08/18 10/09/18 06:59 06:59 06:59 Intake Total 874 980 741 Output Total 2100 2000 1000 Balance -1226 1020 -259 Weight 60.146 kg General appearance: PRESENT: no acute distress Respiratory exam: PRESENT: clear to auscultation joshua. ABSENT: crackles, decreased breath sounds Cardiovascular exam: PRESENT: +S1, +S2, systolic murmur GI/Abdominal exam: PRESENT: normal bowel sounds, soft. ABSENT: organomegaly, renal bruit, tenderness Neurological exam: PRESENT: alert, oriented to person, oriented to place Results Laboratory Results: 10/07/18 05:53 10/08/18 04:50 10/08/18 04:50 Sodium 139.9 Potassium 3.6 Chloride 107 Carbon Dioxide 28 Anion Gap 5 BUN 22 H Creatinine 1.14 Est GFR ( Amer) > 60 Est GFR (Non-Af Amer) 49 L Glucose 175 H Calcium 8.2 L 09/28/18 09/29/18 09/29/18 22:55 01:52 01:52 Creatine Kinase 197 H CK-MB (CK-2) 2.27 Troponin I < 0.012 < 0.012 NT-Pro-B Natriuret Pep 4310 H 09/29/18 09/29/18 09/29/18 07:58 07:58 15:00 Creatine Kinase 149 H 120 CK-MB (CK-2) 1.45 Troponin I < 0.012 NT-Pro-B Natriuret Pep 09/29/18 09/30/18 15:00 04:06 Creatine Kinase CK-MB (CK-2) 0.99 Troponin I < 0.012 NT-Pro-B Natriuret Pep 4370 H Impressions: Chest X-Ray 09/28/18 20:26 IMPRESSION: Bilateral pleural effusions. Renal Biopsy CT 10/02/18 00:00 IMPRESSION: CT GUIDED RIGHT KIDNEY CORTICAL BIOPSY. IV CONSCIOUS SEDATION Guidance Needle Placement CT 10/03/18 00:00 IMPRESSION: CT GUIDED RIGHT KIDNEY CORTICAL BIOPSY. IV CONSCIOUS SEDATION Assessment & Plan - Diagnosis (1) Hypertensive urgency Plan: Still uncontrolled. Titrate lisinopril upwards to 40 bid. Will make further titrations as needed. Discussed with patient. (2) Nephrotic range proteinuria Is this a current diagnosis for this admission?: Yes Plan: Renal biopsy pending. Likely diabetic etiology. Serologies so far all negative. Titrate lisinopril upwards. (3) Acute kidney injury superimposed on chronic kidney disease Is this a current diagnosis for this admission?: Yes Plan: Resolving. (4) Acute on chronic diastolic CHF (congestive heart failure), NYHA class 2 Is this a current diagnosis for this admission?: Yes Plan: Presently compensating. She has heart failure with preserved ejection fraction. She has had good response to diuresis.Keep her current diuretic regimen. Will monitor. (5) Diabetes mellitus type 2 in nonobese Is this a current diagnosis for this admission?: Yes Plan: Advised compliance with diet and medications. Advised the need for tight diabetic control for obvious reasons. (6) Aortic incompetence Qualifiers: Cardiac valve disease etiology: etiology unspecified Qualified Code(s): I35 .1 - Nonrheumatic aortic (valve) insufficiency Plan: Moderate. Status quo. Unsure of etiology.
[2018-10-08] MEDS: LISINOPRIL 10 MG TABLET PO SCH (21:43)
[2018-10-08] MEDS: INSULIN GLARGINE,HUM.REC.ANLOG 300 UNIT/3 ML INSULN.PEN SUBCUT SCH (21:44)
[2018-10-08] MEDS: ATORVASTATIN CALCIUM 40 MG TABLET PO SCH (21:44)
[2018-10-08] MEDS: ISOSORBIDE MONONITRATE 30 MG TAB.ER.24H PO SCH (21:44)
--- NOTE | 2018-10-08 21:52 | RADIOLOGY REPORT (SQ) ---
EXAM DESCRIPTION: XR RIBS 2 VIEWS UNILATERAL COMPLETED DATE/TME: 10/08/2018 00:00 CLINICAL HISTORY: 58 years, Female, right mid clavicular line point tenderness- r/o fx COMPARISON: Chest x-ray 09/28/2018 NUMBER OF VIEWS: 2 TECHNIQUE: 2 views of the right ribs LIMITATIONS: None. FINDINGS: Osteopenia. Equivocal lucency associated with the posterior lateral seventh rib, which may reflect nondisplaced fracture. No other evidence for right rib fracture. Soft tissues are unremarkable. Small right pleural effusion. IMPRESSION: Nondisplaced posterior lateral right seventh rib fracture. Osteopenia. Small right pleural effusion copyright 2010 [employer]- All Rights Reserved
[2018-10-08] MEDS ORDERED: LISINOPRIL 10 MG TABLET PO SCH (22:00)
[2018-10-09] LABS: APPEARANCE,URINE CLEAR; BILIRUBIN,URINE NEGATIVE (NEGATIVE); COLOR,URINE YELLOW; GLUCOSE, URINE 50 mg/dL (NEGATIVE); KETONES,URINE NEGATIVE (NEGATIVE); LEUKOCYTE ESTERASE,URINE NEGATIVE (NEGATIVE); NITRITE,URINE NEGATIVE (NEGATIVE); PROTEIN,URINE >=500 mg/dL (NEGATIVE); UROBILINOGEN,URINE NEGATIVE mg/dL (<2.0)
[2018-10-09] MEDS: HYDRALAZINE HCL INJ/PF 20 MG/1 ML SDV IV PRN (00:07)
[2018-10-09] MEDS: HYDROCODONE/ACETAMINOPHEN 10-325 MG TABLET PO SCH ×4 (00:08→17:28)
[2018-10-09] MEDS: PROMETHAZINE HCL INJ 25 MG/1 ML VIAL IV PRN (03:05)
[2018-10-09] MEDS: LANSOPRAZOLE 30 MG TAB.RAP.DR PO SCH (05:08)
[2018-10-09] MEDS: CLONIDINE HCL 0.2 MG TABLET PO SCH ×3 (05:08→21:40)
[2018-10-09 06:21] LABS: ANION GAP 8 (5-19); BLOOD UREA NITROGEN 21 mg/dL (7-20); CALCIUM 8.4 mg/dL (8.4-10.2); CARBON DIOXIDE 28 mmol/L (22-30); CHLORIDE 106 mmol/L (98-107); GLUCOSE 174 mg/dL (75-110); POTASSIUM 3.5 mmol/L (3.6-5.0); SODIUM 141.7 mmol/L (137-145)
[2018-10-09] MEDS: NEBIVOLOL HCL 10 MG TABLET PO SCH (08:37)
[2018-10-09] MEDS: INSULIN LISPRO 100 UNIT/ML 3 ML VIAL SUBCUT PRN ×2 (08:38→13:33)
[2018-10-09] MEDS: SPIRONOLACTONE 25 MG TABLET PO SCH ×2 (10:28→21:46)
[2018-10-09] MEDS: DOCUSATE SODIUM 100 MG CAPSULE PO SCH (10:28)
[2018-10-09] MEDS: PANTOT AC/MIN OIL/PET HY-PHL OINT 50 GM TOP SCH ×2 (10:28→17:12)
[2018-10-09] MEDS: LISINOPRIL 10 MG TABLET PO SCH ×2 (10:28→21:39)
[2018-10-09] MEDS: CHOLECALCIFEROL (D3) 1,000 UNIT TABLET PO SCH (10:28)
[2018-10-09] MEDS: ASCORBIC ACID 500 MG TABLET PO SCH (10:28)
[2018-10-09] MEDS: FERROUS SULFATE 325 MG TABLET PO SCH (10:28)
[2018-10-09] MEDS: METOLAZONE 2.5 MG TABLET PO SCH ×2 (10:29→17:29)
[2018-10-09] MEDS: MORPHINE SULFATE 10 MG/ML INJ IV PRN ×2 (10:29→21:48)
[2018-10-09] MEDS: BUMETANIDE 1 MG TABLET PO SCH ×2 (10:30→21:46)
[2018-10-09] MEDS: FONDAPARINUX SODIUM INJ 2.5 MG/0.5 ML DISP.SYRIN SUBCUT SCH (10:30)
[2018-10-09] MEDS ORDERED: POTASSIUM CHLORIDE 10 MEQ CAPSULE.ER PO ONE (17:00)
[2018-10-09] MEDS: LIDOCAINE 5% (700 MG) TRANSDERMAL ADH..PATCH TP SCH (17:29)
--- NOTE | 2018-10-09 20:50 | PDOC PROGRESS REPORT ---
Subjective Progress Note for:: 10/09/18 Reason For Visit: Patient is seen today. She denies any history of chest pain or shortness of breath. Labs and medications were reviewed. Blood pressure still is not under ideal control. Preliminary pathology finally has come back from [facility]. 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 It also shows severe arteriosclerosis with mild to moderate interstitial fibrosis and tubular atrophy.No immune complex mediated GN. Electron microscopy was pending.This was discussed with the patient. Physical Exam Vital Signs: Temp Pulse Resp BP Pulse Ox 98.3 F 67 20 182/56 H 100 10/09/18 16:13 10/09/18 16:13 10/09/18 16:13 10/09/18 16:13 10/09/18 16:13 Intake & Output 10/08/18 10/09/18 10/10/18 06:59 06:59 06:59 Intake Total 980 1742 681 Output Total 2000 2500 Balance -1020 -758 681 Weight 60.146 kg 58.9 kg General appearance: PRESENT: no acute distress Respiratory exam: PRESENT: clear to auscultation joshua, decreased breath sounds. ABSENT: crackles Cardiovascular exam: PRESENT: +S1, +S2, systolic murmur GI/Abdominal exam: PRESENT: normal bowel sounds, soft. ABSENT: organomegaly, renal bruit, tenderness Extremities exam: PRESENT: pedal edema Neurological exam: PRESENT: alert, awake, oriented to person, oriented to place Psychiatric exam: PRESENT: appropriate affect Skin exam: ABSENT: erythema, mottled, rash Results Laboratory Results: 10/07/18 05:53 10/09/18 05:34 10/08/18 10/09/18 23:35 05:34 Sodium 141.7 Potassium 3.5 L Chloride 106 Carbon Dioxide 28 Anion Gap 8 BUN 21 H Creatinine 1.19 Est GFR ( Amer) 57 L Est GFR (Non-Af Amer) 47 L Glucose 174 H Calcium 8.4 Urine Color YELLOW Urine Appearance CLEAR Urine pH 7.0 Ur Specific [place] 1.010 Urine Protein >=500 H Urine Glucose (UA) 50 H Urine Ketones NEGATIVE Urine Blood NEGATIVE Urine Nitrite NEGATIVE Ur Leukocyte Esterase NEGATIVE Urine WBC (Auto) 11 Urine RBC (Auto) 09/28/18 09/29/18 09/29/18 22:55 01:52 01:52 Creatine Kinase 197 H CK-MB (CK-2) 2.27 Troponin I < 0.012 < 0.012 NT-Pro-B Natriuret Pep 4310 H 09/29/18 09/29/18 09/29/18 07:58 07:58 15:00 Creatine Kinase 149 H 120 CK-MB (CK-2) 1.45 Troponin I < 0.012 NT-Pro-B Natriuret Pep 09/29/18 09/30/18 15:00 04:06 Creatine Kinase CK-MB (CK-2) 0.99 Troponin I < 0.012 NT-Pro-B Natriuret Pep 4370 H Impressions: Chest X-Ray 09/28/18 20:26 IMPRESSION: Bilateral pleural effusions. Renal Biopsy CT 10/02/18 00:00 IMPRESSION: CT GUIDED RIGHT KIDNEY CORTICAL BIOPSY. IV CONSCIOUS SEDATION Guidance Needle Placement CT 10/03/18 00:00 IMPRESSION: CT GUIDED RIGHT KIDNEY CORTICAL BIOPSY. IV CONSCIOUS SEDATION Ribs X-Ray 10/08/18 00:00 IMPRESSION: Nondisplaced posterior lateral right seventh rib fracture. Osteopenia. Small right pleural effusion copyright 2011 [employer]- All Rights Reserved Assessment & Plan - Diagnosis (1) Hypertensive urgency Plan: Still uncontrolled. Titrate clonidine to 0.3 tid. Will make further titrations as needed. Discussed with patient. (2) Nephrotic range proteinuria Is this a current diagnosis for this admission?: Yes Plan: Renal biopsy prelim report was back. It showed has nodular diabetic sclerosis with segmental scarring. It also shows severe arteriosclerosis with mild to moderate interstitial fibrosis and tubular atrophy. There is no evidences of immune mediated glomerulonephritis. Electron microscopy was pending. At this point once the blood pressure is controlled patient maybe discharged home and she needs to follow up with us in about 2 -3 weeks time. (3) Acute kidney injury superimposed on chronic kidney disease Is this a current diagnosis for this admission?: Yes Plan: Looks like her acute kidney insult on top of CKD stage III has resolved. She obviously has diabetic kidney disease and needs to be monitored as an outpatient. (4) Acute on chronic diastolic CHF (congestive heart failure), NYHA class 2 Is this a current diagnosis for this admission?: Yes Plan: Presently compensating. She has heart failure with preserved ejection fraction. She has had good response to diuresis.Keep her current diuretic regimen. Will monitor. (5) Diabetes mellitus type 2 in nonobese Is this a current diagnosis for this admission?: Yes Plan: Advised compliance with diet and medications. Advised the need for tight diabetic control for obvious reasons. (6) Aortic incompetence Qualifiers: Cardiac valve disease etiology: etiology unspecified Qualified Code(s): I35.1 - Nonrheumatic aortic (valve) insufficiency Plan: Moderate. Status quo. Unsure of etiology.
[2018-10-09] MEDS: ISOSORBIDE MONONITRATE 30 MG TAB.ER.24H PO SCH (21:42)
[2018-10-09] MEDS: INSULIN GLARGINE,HUM.REC.ANLOG 300 UNIT/3 ML INSULN.PEN SUBCUT SCH (21:47)
[2018-10-09] MEDS: ATORVASTATIN CALCIUM 40 MG TABLET PO SCH (21:50)
[2018-10-10] MEDS: HYDROCODONE/ACETAMINOPHEN 10-325 MG TABLET PO SCH ×5 (00:40→23:29)
[2018-10-10] MEDS: PROMETHAZINE HCL INJ 25 MG/1 ML VIAL IV PRN ×2 (00:47→08:34)
[2018-10-10] MEDS: LANSOPRAZOLE 30 MG TAB.RAP.DR PO SCH (05:46)
[2018-10-10] MEDS: CLONIDINE HCL 0.2 MG TABLET PO SCH ×3 (05:46→23:31)
[2018-10-10 06:13] LABS: ANION GAP 6 (5-19); BLOOD UREA NITROGEN 23 mg/dL (7-20); CALCIUM 8.5 mg/dL (8.4-10.2); CARBON DIOXIDE 29 mmol/L (22-30); CHLORIDE 105 mmol/L (98-107); GLUCOSE 210 mg/dL (75-110); POTASSIUM 3.8 mmol/L (3.6-5.0); SODIUM 139.5 mmol/L (137-145)
--- NOTE | 2018-10-10 08:01 | PROGRESS NOTE E ---
Progress Note NAME: JASMIN MURDOCK : 1960 AGE: 58Y DATE: 10/09/2018 ROOM: 408 SUBJECTIVE: The patient is sitting on the side of the bed. She just got a shower. States she feels a little better today. The patient states she diuresed a lot yesterday. She denies any nausea, vomiting, diarrhea. The patient states she is not sleeping very well at night, which is nothing too abnormal for her. The patient does not voice any specific concerns at this time. REVIEW OF SYSTEMS: The rest of the review of systems is negative. MEDICATIONS: Medications have been reviewed. OBJECTIVE: GENERAL: The patient is a 58-year-old female who is awake, alert. She is oriented to person, place, time, and situation. She does not appear to be in any acute distress. VITAL SIGNS: Temperature is 97.5, pulse 80, respirations 16, blood pressure is 186/117, oxygen saturation is 98% on 2 L nasal cannula. SKIN: Warm and dry. No rash. Not diaphoretic. HEENT: Pupils equal, round, reactive to light and accommodation. Conjunctiva is pink. No evidence of JVP. CARDIOVASCULAR SYSTEM: Heart is regular. No rub. CHEST: Clear, symmetrical, unlabored. ABDOMEN: Soft, nontender, nondistended. BACK: No CVA tenderness or sacral edema. EXTREMITIES: No clubbing, cyanosis. The patient does have evidence of previous edema, still has some slight edema of the right lower extremity. DIAGNOSTICS: Lab values are as follows: Hematology obtained on 10/07/2018: WBCs are 6.9, hemoglobin is 10.0, hematocrit is 29.3, platelet count is 126,000. Chemistry obtained on 10/09/2018: Sodium is 141, potassium 3.5, chloride is 106, carbon dioxide 28, BUN 21, creatinine is 1.19, glucose 174, calcium is 8.4. IMPRESSION AND PLAN: 1. ACUTE ON CHRONIC DIASTOLIC CONGESTIVE HEART FAILURE. The patient has been diuresed. She has responded nicely to oral Bumex, continues on Zaroxolyn as well. Will follow. 2. ACUTE ON CHRONIC KIDNEY DISEASE STAGE 3. The patient's renal biopsy is pending. Creatinine appears to be improving still. Has significant proteinuria nephrotic range. Do appreciate Nephrology's input on this. 3. LABILE HYPERTENSION. Again, the patient's renal biopsy is pending, most likely has some of the answers to this. 4. DIABETES MELLITUS TYPE 2. The patient does have good glycemic control. Will continue current regimen. 5. GASTROESOPHAGEAL REFLUX DISEASE. Will continue PPI therapy. 6. RIGHT SIDE PAIN. The patient still complains of ongoing pain to this area. The patient does have an area of lateral seventh rib fracture. Will encourage incentive spirometry and follow. DISPOSITION: The patient is a FULL CODE. Pending patient's symptomatology and diagnostic findings, will re-evaluate in the a.m. Time spent on this followup including assessment, plan, physical examination, patient education, review of records is 35 minutes. DICTATING PHYSICIAN: EVANGELINA BARBOSA NP [id number] PHY#: [id number] ID: [id number] JOB#: [id number] ACCT: [id number] cc: >
[2018-10-10] MEDS: INSULIN LISPRO 100 UNIT/ML 3 ML VIAL SUBCUT PRN ×3 (08:33→18:38)
[2018-10-10] MEDS: NEBIVOLOL HCL 10 MG TABLET PO SCH (08:34)
[2018-10-10] MEDS: FERROUS SULFATE 325 MG TABLET PO SCH (11:31)
[2018-10-10] MEDS: SPIRONOLACTONE 25 MG TABLET PO SCH ×2 (11:31→23:28)
[2018-10-10] MEDS: LISINOPRIL 10 MG TABLET PO SCH ×2 (11:31→23:29)
[2018-10-10] MEDS: DOCUSATE SODIUM 100 MG CAPSULE PO SCH (11:31)
[2018-10-10] MEDS: ASCORBIC ACID 500 MG TABLET PO SCH (11:32)
[2018-10-10] MEDS: CHOLECALCIFEROL (D3) 1,000 UNIT TABLET PO SCH (11:32)
[2018-10-10] MEDS: BUMETANIDE 1 MG TABLET PO SCH ×2 (11:32→23:31)
[2018-10-10] MEDS: METOLAZONE 2.5 MG TABLET PO SCH ×2 (11:32→18:06)
[2018-10-10] MEDS: FONDAPARINUX SODIUM INJ 2.5 MG/0.5 ML DISP.SYRIN SUBCUT SCH (11:33)
[2018-10-10] MEDS: LIDOCAINE 5% (700 MG) TRANSDERMAL ADH..PATCH TP SCH (11:38)
[2018-10-10] MEDS: PANTOT AC/MIN OIL/PET HY-PHL OINT 50 GM TOP SCH ×2 (11:39→18:10)
[2018-10-10] MEDS: ONDANSETRON 4 MG TAB.RAPDIS PO PRN (11:45)
--- NOTE | 2018-10-10 15:12 | PROGRESS NOTE E ---
Progress Note NAME: JASMIN MURDOCK : 1960 AGE: 58Y DATE: 10/10/2018 ROOM: 408 SUBJECTIVE: The patient is currently lying in bed. She states that she feels about the same as she did yesterday. The patient was seen by Nephrology who discussed her biopsy with her. I reinforced the need for glycemic and blood pressure control. The patient denies any shortness of breath, dizziness, or chest pain. No fevers or chills. The patient has been afebrile. Blood pressures are very labile. She does not voice any specific concerns at this time. REVIEW OF SYSTEMS: The rest of the review of systems is negative. MEDICATIONS: Medications have been reviewed. OBJECTIVE: GENERAL: The patient is a 58-year-old female who is awake, alert, and oriented to person, place, time, and situation. She is verbal, conversational, does not appear to be distressed. VITAL SIGNS: As follows: Temperature is 98.1, pulse 73, respirations 19, blood pressure 137/69, oxygen saturation is 99% on room air. SKIN: Warm and dry. No rash, not diaphoretic. HEENT: Pupils are reactive. Conjunctivae is pink. No evidence of JVP. She is quite pale. CARDIOVASCULAR: Heart is regular. There is no murmur or rub. CHEST: Clear, symmetrical, unlabored. ABDOMEN: Soft, nontender. EXTREMITIES: No clubbing, cyanosis, edema. PSYCHIATRIC: The patient does have a flat affect, a little agitated. DIAGNOSTICS: Lab values are as follows. Hematology obtained on 10/07/2018: WBCs are 6.9, hemoglobin is 10.0, hematocrit is 29.3, platelet count is 126,000. Chemistry obtained on 10/10/2018: Sodium is 139, potassium 3.8, chloride is 105, carbon dioxide 29, BUN 23, creatinine is 1.18, glucose 210, calcium is 8.5. IMPRESSION AND PLAN: 1. ACUTE ON CHRONIC DIASTOLIC CONGESTIVE HEART FAILURE. The patient has been diuresed. She responded nicely to oral Bumex; continue this as well as Zaroxolyn and follow. 2. ACUTE ON CHRONIC KIDNEY DISEASE STAGE 3. Renal biopsy suggestive of arteriosclerosis. Do appreciate Nephrology's input on this. The patient has been instructed on the need for blood pressure and diabetes management. 3. LABILE HYPERTENSION. Again, the patient's renal blood pressure alludes to her need to keep her blood pressure well controlled. Medication changes have been made by Nephrology. Will monitor these. 4. DIABETES MELLITUS TYPE 2. The patient has decent glycemic control. Continue to follow. 5. GERD. Will continue PPI. 6. LEFT-SIDED PAIN. The patient complains of ongoing pain in this area. It appears she does have a lateral seventh rib fracture. DISPOSITION: THE PATIENT IS A FULL CODE. Pending the patient's symptomatology and diagnostic findings, will re-evaluate in the a.m. Time spent on this followup, including assessment/plan, physical examination, patient education, review of records, is 35 minutes. DICTATING PHYSICIAN: EVANGELINA BARBOSA NP [id number] PHY#: [id number] ID: [id number] JOB#: [id number] ACCT: [id number] cc: >
[2018-10-10] MEDS ORDERED: NORMAL SALINE 500 ML IV ONE (19:45)
[2018-10-10] MEDS: AMLODIPINE BESYLATE 5 MG TABLET PO SCH (23:27)
[2018-10-10] MEDS: ATORVASTATIN CALCIUM 40 MG TABLET PO SCH (23:28)
[2018-10-10] MEDS: ISOSORBIDE MONONITRATE 30 MG TAB.ER.24H PO SCH (23:30)
[2018-10-10] MEDS: INSULIN GLARGINE,HUM.REC.ANLOG 300 UNIT/3 ML INSULN.PEN SUBCUT SCH (23:31)
[2018-10-11] MEDS: PROMETHAZINE HCL INJ 25 MG/1 ML VIAL IV PRN ×2 (01:10→10:32)
[2018-10-11] MEDS: PHARMACY COMMUNICATION ORDER MC SCH ×2 (03:01→23:02)
[2018-10-11 05:28] LABS: HEMATOCRIT 31.7 % (36.0-47.0); HEMOGLOBIN 11.1 g/dL (12.0-15.5); MEAN CORPUSCULAR HEMOGLOBIN 28.7 pg (27.0-33.4); MEAN CORPUSCULAR VOLUME 82 fl (80-97); PLATELET COUNT 160 10^3/uL (150-450); RED BLOOD COUNT 3.87 10^6/uL (3.72-5.28); RED CELL DISTRIBUTION WIDTH 16.6 % (11.5-14.0); WHITE BLOOD COUNT 8.2 10^3/uL (4.0-10.5)
[2018-10-11 06:01] LABS: ANION GAP 8 (5-19); BLOOD UREA NITROGEN 24 mg/dL (7-20); CALCIUM 8.5 mg/dL (8.4-10.2); CARBON DIOXIDE 28 mmol/L (22-30); CHLORIDE 104 mmol/L (98-107); GLUCOSE 184 mg/dL (75-110); SODIUM 140.2 mmol/L (137-145)
[2018-10-11 06:02] LABS: POTASSIUM 3.8 mmol/L (3.6-5.0)
[2018-10-11] MEDS: HYDROCODONE/ACETAMINOPHEN 10-325 MG TABLET PO SCH ×4 (06:02→23:01)
[2018-10-11] MEDS: CLONIDINE HCL 0.2 MG TABLET PO SCH ×3 (06:03→22:26)
[2018-10-11] MEDS: LANSOPRAZOLE 30 MG TAB.RAP.DR PO SCH (06:04)
[2018-10-11] MEDS: NEBIVOLOL HCL 10 MG TABLET PO SCH (09:00)
[2018-10-11] MEDS: LIDOCAINE 5% (700 MG) TRANSDERMAL ADH..PATCH TP SCH (09:38)
[2018-10-11] MEDS: BUMETANIDE 1 MG TABLET PO SCH ×2 (09:39→22:25)
[2018-10-11] MEDS: METOLAZONE 2.5 MG TABLET PO SCH ×2 (09:39→17:00)
[2018-10-11] MEDS: LISINOPRIL 10 MG TABLET PO SCH ×2 (09:39→22:27)
[2018-10-11] MEDS: FERROUS SULFATE 325 MG TABLET PO SCH (09:39)
[2018-10-11] MEDS: ASCORBIC ACID 500 MG TABLET PO SCH (09:40)
[2018-10-11] MEDS: CHOLECALCIFEROL (D3) 1,000 UNIT TABLET PO SCH (09:40)
[2018-10-11] MEDS: FONDAPARINUX SODIUM INJ 2.5 MG/0.5 ML DISP.SYRIN SUBCUT SCH (09:40)
[2018-10-11] MEDS: DOCUSATE SODIUM 100 MG CAPSULE PO SCH (09:40)
[2018-10-11] MEDS: SPIRONOLACTONE 25 MG TABLET PO SCH ×2 (11:34→22:25)
[2018-10-11] MEDS: PANTOT AC/MIN OIL/PET HY-PHL OINT 50 GM TOP SCH ×2 (13:22→17:00)
[2018-10-11] MEDS: INSULIN LISPRO 100 UNIT/ML 3 ML VIAL SUBCUT PRN ×2 (13:22→16:59)
[2018-10-11] MEDS ORDERED: METOCLOPRAMIDE HCL 10 MG TABLET PO PRN (16:47)
--- NOTE | 2018-10-11 17:18 | PDOC PROGRESS REPORT ---
Subjective Progress Note for:: 10/11/18 Reason For Visit: She is laying in bed. She is concerned with her drop in her blood pressure when she sits up or stands up. Laying down she is around 170-180 systolic and then drops into the 90s when she stands up. Patient denies any history of chest pain or shortness of breath. No history of any focal deficits or seizures. Labs and medications were reviewed with her. Discussions were done with the treating nurse. Physical Exam Vital Signs: Temp Pulse Resp BP Pulse Ox 97.7 F 72 16 87/43 L 97 10/11/18 16:49 10/11/18 16:49 10/11/18 16:49 10/11/18 12:07 10/11/18 16:49 Intake & Output 10/10/18 10/11/18 10/12/18 06:59 06:59 06:59 Intake Total 681 1166 Output Total 2100 2450 Balance -1419 -1284 Weight 60 kg 62.8 kg General appearance: PRESENT: no acute distress Respiratory exam: PRESENT: clear to auscultation joshua. ABSENT: crackles, decreased breath sounds Cardiovascular exam: PRESENT: +S1, +S2, systolic murmur GI/Abdominal exam: PRESENT: normal bowel sounds, soft. ABSENT: organomegaly, renal bruit, tenderness Extremities exam: PRESENT: pedal edema Neurological exam: PRESENT: alert, awake, oriented to person, oriented to place Results Laboratory Results: 10/11/18 04:24 10/11/18 04:24 10/11/18 10/11/18 04:24 04:24 WBC 8.2 RBC 3.87 Hgb 11.1 L Hct 31.7 L MCV 82 MCH 28.7 MCHC 35.0 RDW 16.6 H Plt Count 160 Sodium 140.2 Potassium 3.8 Chloride 104 Carbon Dioxide 28 Anion Gap 8 BUN 24 H Creatinine 1.37 H Est GFR ( Amer) 48 L Est GFR (Non-Af Amer) 40 L Glucose 184 H Calcium 8.5 Magnesium 1.7 09/28/18 09/29/18 09/29/18 22:55 01:52 01:52 Creatine Kinase 197 H CK-MB (CK-2) 2.27 Troponin I < 0.012 < 0.012 NT-Pro-B Natriuret Pep 4310 H 09/29/18 09/29/1809/29/18 07:58 07:58 15:00 Creatine Kinase 149 H 120 CK-MB (CK-2) 1.45 Troponin I < 0.012 NT-Pro-B Natriuret Pep 09/29/18 09/30/18 15:00 04:06 Creatine Kinase CK-MB (CK-2) 0.99 Troponin I < 0.012 NT-Pro-B Natriuret Pep 4370 H Impressions: Chest X-Ray 09/28/18 20:26 IMPRESSION: Bilateral pleural effusions. Renal Biopsy CT 10/02/18 00:00 IMPRESSION: CT GUIDED RIGHT KIDNEY CORTICAL BIOPSY. IV CONSCIOUS SEDATION Guidance Needle Placement CT 10/03/18 00:00 IMPRESSION: CT GUIDED RIGHT KIDNEY CORTICAL BIOPSY. IV CONSCIOUS SEDATION Ribs X-Ray 10/08/18 00:00 IMPRESSION: Nondisplaced posterior lateral right seventh rib fracture. Osteopenia. Small right pleural effusion copyright 2010 [employer]- All Rights Reserved Assessment & Plan - Diagnosis (1) Hypertensive urgency Plan: Blood pressure is currently better but now she is orthostatic. Given the implications I am going to cut back on the clonidine. Advised precautions when she sat stands up for fear of syncope or focal deficits.Discussions were done with the treating nurse.Discussed with patient. (2) Nephrotic range proteinuria Is this a current diagnosis for this admission?: Yes Plan: Renal biopsy prelim report was back. It showed has nodular diabetic sclerosis with segmental scarring. It also shows severe arteriosclerosis with mild to moderate interstitial fibrosis and tubular atrophy. There is no evidences of immune mediated glomerulonephritis. Electron microscopy was pending. At this point once the blood pressure is controlled patient maybe discharged home and she needs to follow up with us in about 2 -3 weeks time. (3) Acute kidney injury superimposed on chronic kidney disease Is this a current diagnosis for this admission?: Yes Plan: Looks like her acute kidney insult on top of CKD stage III has resolved. She obviously has diabetic kidney disease and needs to be monitored as an outpatient. (4) Acute on chronic diastolic CHF (congestive heart failure), NYHA class 2 Is this a current diagnosis for this admission?: Yes Plan: Presently compensating. She has heart failure with preserved ejection fraction. She has had good response to diuresis.Keep her current diuretic regimen. Will monitor. (5) Diabetes mellitus type 2 in nonobese Is this a current diagnosis for this admission?: Yes Plan: Advised compliance with diet and medications. Advised the need for tight diabetic control for obvious reasons. (6) Aortic incompetence Qualifiers: Cardiac valve disease etiology: etiology unspecified Qualified Code(s): I35.1 - Nonrheumatic aortic (valve) insufficiency Plan: Moderate. Status quo. Unsure of etiology.
--- NOTE | 2018-10-11 19:52 | PROGRESS NOTE E ---
Progress Note NAME: JASMIN MURDOCK : 1960 AGE: 58Y DATE: 10/11/2018 ROOM: 408 SUBJECTIVE: The patient is currently lying in bed. She states that she feels extremely nauseous today. The patient states that her nausea is much worse in the morning. The patient denies any shortness of breath, dizziness or chest pain. The patient has had some labile blood pressures and does not voice any specific concerns at this time. REVIEW OF SYSTEMS: The rest of the review of systems is negative. MEDICATIONS: Medications have been reviewed. OBJECTIVE: GENERAL: The patient is a 58-year-old female who is awake, alert, and oriented to person, place, time, and situation. She is verbal, conversational, does not appear to be in any acute distress. VITAL SIGNS: Temperature is 98.1, pulse 75, respirations 16, blood pressure is 205/70, oxygen saturation is 97% on room air. SKIN: Warm and dry. No rash. She is not diaphoretic. HEENT: Pupils equal, round, and reactive to light and accommodation. Conjunctiva is pink. There is no evidence of JVP. CARDIOVASCULAR: Heart is regular. There is no rub. CHEST: Clear, symmetrical, unlabored. ABDOMEN: Soft and nontender. EXTREMITIES: No clubbing or cyanosis. Edema has appeared to resolve. PSYCHIATRIC: The patient does have a flat affect. DIAGNOSTICS: Lab values are as follows: Hematology obtained on 10/11/2018: WBC's are 8.2, hemoglobin is 11.1, hematocrit is 31.7, platelet count is 260,000. Chemistry obtained on 10/11/2018: Sodium is 140, potassium 3.8, chloride is 104, carbon dioxide is 28, BUN 24, creatinine is 1.37, glucose 184, calcium is 8.5, magnesium is 1.7. IMPRESSION AND PLAN: 1. ACUTE ON CHRONIC DIASTOLIC CONGESTIVE HEART FAILURE. It appears the patient most likely has a cardiorenal syndrome. The patient has been diuresed. She responded nicely to oral Bumex. Also continue Zaroxolyn. Will follow. 2. ACUTE ON CHRONIC STAGE 3 KIDNEY DISEASE. Renal biopsy is suggestive of arteriosclerosis. I do appreciate Nephrology's input on this. The patient has been instructed to have tight blood pressure and diabetic control. 3. LABILE HYPERTENSION. The patient has been instructed on optimal glucose control. The patient's blood pressures though are uncomfortably labile and the patient is very symptomatic with these. I do not want to change too many things at one time. I do fear she may be rebounding from additional doses of clonidine but will follow. 4. DIABETES MELLITUS TYPE 2. The patient has decent glycemic control. She states that it is better when she is not hospitalized. 5. GERD. Continue PPI. 6. SEVENTH RIB FRACTURE. Continue lidocaine and pain medicine p.r.n. 7. DIABETIC GASTROPARESIS. The patient states that her nausea is becoming unbearable in the mornings. Will give her a nocturnal dose of Reglan and see how this works for her. DISPOSITION: THE PATIENT IS A FULL CODE. Pending the patient's symptomatology and diagnostic findings, will re-evaluate in the a.m. Time spent on this followup, including assessment, plan, physical examination, patient education, review of records, is 35 minutes. DICTATING PHYSICIAN: EVANGELINA BARBOSA NP [id number] Y#: [id number] ID: [id number] JOB#: [id number] ACCT: [id number] cc: >
[2018-10-11 22:06] LABS: APPEARANCE,URINE SLIGHTLY-CLOUDY; BILIRUBIN,URINE NEGATIVE (NEGATIVE); COLOR,URINE YELLOW; GLUCOSE, URINE NEGATIVE (NEGATIVE); KETONES,URINE NEGATIVE (NEGATIVE); LEUKOCYTE ESTERASE,URINE SMALL (NEGATIVE); NITRITE,URINE NEGATIVE (NEGATIVE); PROTEIN,URINE >=500 mg/dL (NEGATIVE); UROBILINOGEN,URINE NEGATIVE mg/dL (<2.0)
[2018-10-11] MEDS: ISOSORBIDE MONONITRATE 30 MG TAB.ER.24H PO SCH (22:24)
[2018-10-11] MEDS: AMLODIPINE BESYLATE 5 MG TABLET PO SCH (22:24)
[2018-10-11] MEDS: ATORVASTATIN CALCIUM 40 MG TABLET PO SCH (22:26)
[2018-10-11] MEDS: INSULIN GLARGINE,HUM.REC.ANLOG 300 UNIT/3 ML INSULN.PEN SUBCUT SCH (22:26)
[2018-10-11] MEDS: METOCLOPRAMIDE HCL 10 MG TABLET PO SCH (22:33)
[2018-10-12] MEDS: CLONIDINE HCL 0.2 MG TABLET PO SCH ×3 (05:56→21:57)
[2018-10-12] MEDS: HYDROCODONE/ACETAMINOPHEN 10-325 MG TABLET PO SCH ×3 (05:56→18:47)
[2018-10-12] MEDS: LANSOPRAZOLE 30 MG TAB.RAP.DR PO SCH (05:59)
[2018-10-12] MEDS: PROMETHAZINE HCL INJ 25 MG/1 ML VIAL IV PRN ×3 (06:56→18:46)
--- NOTE | 2018-10-12 13:22 | PROGRESS NOTE E ---
Progress Note NAME: JASMIN MURDOCK : 1960 AGE: 58Y DATE: 10/12/2018 ROOM: 408 SUBJECTIVE: The patient is currently lying in bed. The patient describes herself as miserably nauseated this morning to the point of not being able to get out of the bed. The patient got up at about 6 a.m. to shower and after that felt absolutely miserable. The patient's blood pressures generally have improved but unfortunately she is quite orthostatic. This morning her resting blood pressure while lying was systolically 130; however when she stood she dropped into the 70s. Nephrology did change her medications yesterday so we will continue to monitor these. At this point in time, I am going to hold the p.r.n. clonidine orders given my concern for rebounding and follow. REVIEW OF SYSTEMS: The rest of the review of systems is negative. MEDICATIONS: Medications have been reviewed. OBJECTIVE: GENERAL: The patient is a 58-year-old female who is awake, alert, and oriented to person, place, time, and situation. She is verbal, conversational, does not appear to be in any acute distress. VITAL SIGNS: Temperature is 98.6, pulse 73, respirations 16, blood pressure is 114/54, oxygen saturation is 97% on room air. SKIN: Warm and dry. No rash. She is not diaphoretic. She is quite pale. HEENT: Pupils are reactive. Conjunctiva is pink. There is no evidence of JVP. CARDIOVASCULAR: Heart is regular. There is no murmur or rub. CHEST: Clear, symmetrical, unlabored. ABDOMEN: Soft, nontender, nondistended. BACK: No CVA tenderness or sacral edema. EXTREMITIES: No clubbing, cyanosis or edema. PSYCHIATRIC: The patient does have a flat affect. DIAGNOSTICS: Lab values are as follows: Hematology obtained on 10/11/2018: WBC's are 8.2, hemoglobin is 12.1, hematocrit is 37.1, platelet count is 160,000. Chemistry obtained on 10/11/2018: Sodium is 140, potassium 1.8, chloride 104, carbon dioxide is 28, BUN 24, creatinine is 1.37, glucose 184, calcium is 8.5, magnesium is 1.7. IMPRESSION AND PLAN: 1. ACUTE ON CHRONIC DIASTOLIC CONGESTIVE HEART FAILURE. The patient appears to have more of a cardiorenal syndrome type picture. The patient was diuresed. Responded nicely to oral Bumex. 2. ACUTE ON CHRONIC STAGE III CHRONIC KIDNEY DISEASE. Renal biopsy was suggestive of arteriosclerosis. Does not appear to have any autoimmune process. I do appreciate Nephrology's input on this. The patient has been instructed in the need for tight blood pressure control, as well as diabetes control. 3. LABILE HYPERTENSION. The patient has been instructed on optimal control. The patient's blood pressures now are quite orthostatic. She can become extremely symptomatic with these as well. Quantity has been overall decreased. Will follow this response. 4. DIABETES MELLITUS TYPE 2. The patient has had decent glycemic control. Will follow. 5. GASTROESOPHAGEAL REFLUX DISEASE. Will continue PPI therapy. 6. SEVENTH RIB FRACTURE. Continue lidocaine, as well as pain medicine p.r.n. 7. DIABETIC GASTROPARESIS. The patient's nausea has become unbearable at this point in time. Will give high nocturnal dose of Reglan and 5 mg with meals. DISPOSITION: THE PATIENT IS A FULL CODE. Pending the patient's symptomatology and diagnostic findings, will re-evaluate in the a.m. Time spent on this followup, including assessment, plan, physical examination, patient education, review of records, is 35 minutes. DICTATING PHYSICIAN: EVANGELINA BARBOSA NP [id number] CARTERY#: [id number] ID: [id number] JOB#: [id number] ACCT: [id number] cc: >
[2018-10-12 13:27] LABS: ANION GAP 7 (5-19); BLOOD UREA NITROGEN 27 mg/dL (7-20); CALCIUM 8.5 mg/dL (8.4-10.2); CARBON DIOXIDE 28 mmol/L (22-30); CHLORIDE 105 mmol/L (98-107); GLUCOSE 193 mg/dL (75-110); POTASSIUM 3.7 mmol/L (3.6-5.0); SODIUM 139.8 mmol/L (137-145)
[2018-10-12] MEDS: SPIRONOLACTONE 25 MG TABLET PO SCH ×2 (16:41→21:58)
[2018-10-12] MEDS: PANTOT AC/MIN OIL/PET HY-PHL OINT 50 GM TOP SCH ×2 (16:42→17:56)
[2018-10-12] MEDS: FONDAPARINUX SODIUM INJ 2.5 MG/0.5 ML DISP.SYRIN SUBCUT SCH (16:43)
[2018-10-12] MEDS: BUMETANIDE 1 MG TABLET PO SCH ×2 (16:44→22:04)
[2018-10-12] MEDS: DOCUSATE SODIUM 100 MG CAPSULE PO SCH (16:44)
[2018-10-12] MEDS: FERROUS SULFATE 325 MG TABLET PO SCH (16:44)
[2018-10-12] MEDS: METOLAZONE 2.5 MG TABLET PO SCH ×2 (16:45→18:47)
[2018-10-12] MEDS: LIDOCAINE 5% (700 MG) TRANSDERMAL ADH..PATCH TP SCH (16:45)
[2018-10-12] MEDS: CHOLECALCIFEROL (D3) 1,000 UNIT TABLET PO SCH (16:45)
[2018-10-12] MEDS: LISINOPRIL 10 MG TABLET PO SCH ×2 (16:45→21:57)
[2018-10-12] MEDS: ASCORBIC ACID 500 MG TABLET PO SCH (16:45)
[2018-10-12] MEDS: METOCLOPRAMIDE HCL 10 MG TABLET PO SCH ×3 (16:46→21:59)
[2018-10-12] MEDS: ISOSORBIDE MONONITRATE 30 MG TAB.ER.24H PO SCH (21:57)
[2018-10-12] MEDS: AMLODIPINE BESYLATE 5 MG TABLET PO SCH (21:58)
[2018-10-12] MEDS: INSULIN GLARGINE,HUM.REC.ANLOG 300 UNIT/3 ML INSULN.PEN SUBCUT SCH (21:58)
[2018-10-12] MEDS: ATORVASTATIN CALCIUM 40 MG TABLET PO SCH (21:58)
[2018-10-12] MEDS: PHARMACY COMMUNICATION ORDER MC SCH (22:00)
[2018-10-13] MEDS: HYDROCODONE/ACETAMINOPHEN 10-325 MG TABLET PO SCH ×5 (00:06→23:07)
[2018-10-13] MEDS: NEBIVOLOL HCL 10 MG TABLET PO SCH (03:30)
[2018-10-13] MEDS: MORPHINE SULFATE 10 MG/ML INJ IV PRN ×2 (04:44→15:37)
[2018-10-13 04:53] LABS: HEMATOCRIT 35.7 % (36.0-47.0); HEMOGLOBIN 12.2 g/dL (12.0-15.5); MEAN CORPUSCULAR HEMOGLOBIN 28.3 pg (27.0-33.4); MEAN CORPUSCULAR HGB CONC 34.3 g/dL (32.0-36.0); MEAN CORPUSCULAR VOLUME 82 fl (80-97); PLATELET COUNT 178 10^3/uL (150-450); RED BLOOD COUNT 4.33 10^6/uL (3.72-5.28); RED CELL DISTRIBUTION WIDTH 16.5 % (11.5-14.0)
[2018-10-13 05:04] LABS: ANION GAP 7 (5-19); BLOOD UREA NITROGEN 28 mg/dL (7-20); CALCIUM 8.8 mg/dL (8.4-10.2); CARBON DIOXIDE 31 mmol/L (22-30); CHLORIDE 106 mmol/L (98-107); GLUCOSE 146 mg/dL (75-110); POTASSIUM 3.8 mmol/L (3.6-5.0); SODIUM 143.5 mmol/L (137-145)
[2018-10-13] MEDS: LANSOPRAZOLE 30 MG TAB.RAP.DR PO SCH (05:34)
[2018-10-13] MEDS: PROMETHAZINE HCL INJ 25 MG/1 ML VIAL IV PRN (05:35)
[2018-10-13] MEDS: CLONIDINE HCL 0.2 MG TABLET PO SCH ×3 (05:35→21:52)
[2018-10-13] MEDS: METOCLOPRAMIDE HCL 10 MG TABLET PO SCH ×4 (08:28→21:57)
[2018-10-13] MEDS: SPIRONOLACTONE 25 MG TABLET PO SCH ×2 (09:40→21:55)
[2018-10-13] MEDS: DOCUSATE SODIUM 100 MG CAPSULE PO SCH (09:41)
[2018-10-13] MEDS: LISINOPRIL 10 MG TABLET PO SCH ×2 (09:41→21:54)
[2018-10-13] MEDS: LIDOCAINE 5% (700 MG) TRANSDERMAL ADH..PATCH TP SCH (09:41)
[2018-10-13] MEDS: FONDAPARINUX SODIUM INJ 2.5 MG/0.5 ML DISP.SYRIN SUBCUT SCH (09:42)
[2018-10-13] MEDS: PANTOT AC/MIN OIL/PET HY-PHL OINT 50 GM TOP SCH ×2 (09:42→17:33)
[2018-10-13] MEDS: FERROUS SULFATE 325 MG TABLET PO SCH (09:43)
[2018-10-13] MEDS: METOLAZONE 2.5 MG TABLET PO SCH ×2 (09:44→17:32)
[2018-10-13] MEDS: ASCORBIC ACID 500 MG TABLET PO SCH (09:44)
[2018-10-13] MEDS: CHOLECALCIFEROL (D3) 1,000 UNIT TABLET PO SCH (09:44)
[2018-10-13] MEDS: BUMETANIDE 1 MG TABLET PO SCH (09:49)
[2018-10-13] MEDS: INSULIN LISPRO 100 UNIT/ML 3 ML VIAL SUBCUT PRN ×2 (12:29→17:31)
--- NOTE | 2018-10-13 16:44 | PROGRESS NOTE E ---
Progress Note NAME: JASMIN MURDOCK : 1960 AGE: 58Y DATE: 10/13/2018 ROOM: 408 SUBJECTIVE: The patient is currently lying in bed. She states she feels better today than she did yesterday. She spent the entire day nauseated. The patient still remains profoundly orthostatic. Absolutely impressive, the patient had a lying blood pressure of 204/73 but a standing blood pressure of 74/44. The patient states she is very symptomatic with this including nausea. The patient has been afebrile. Her blood pressure has been in a good range. Her blood pressures have been in a labile place. The patient does not voice any specific concerns at this time. BRIEF HISTORY: The patient is a 58-year-old female that is well known to the hospitalist service. The patient presented to the hospital with CHF as well as acute on chronic kidney failure. The patient does have evidence of renal cardio syndrome and subsequently the patient responded very well to diuresis. Her creatinine has improved. Kidney biopsy was suggestive of arteriosclerosis. Optimal blood pressure controlled is warranted as well as glycemic control. However, the patient's blood pressures have been very difficult to control, quite labile also resulting in significant orthostasis. The patient did have medication adjustments made on Sunday. Therefore, would like to see how this goes over the next day. The patient did have a reduction in her clonidine use. Unsure of the patient's nausea other than gastroparesis. She has been started on Reglan, a smaller dose with each meal and then a larger dose at bedtime. The patient has been afebrile throughout her stay. REVIEW OF SYSTEMS: The rest of the review of systems is negative. MEDICATIONS: Medications have been reviewed. OBJECTIVE: GENERAL: The patient is a 58-year-old female who is awake, alert. She is oriented to person, place, time, and situation. She is verbal, conversational, does not appear to be distressed. VITAL SIGNS: Temperature is 98.1, pulse 77, respirations 16, blood pressure is 149/62, oxygen saturation is 99% on room air. SKIN: Warm and dry. No rash. She is not diaphoretic. HEENT: Pupils equal, round, and reactive to light and accommodation. Conjunctiva is pink. There is no evidence of JVP. CARDIOVASCULAR: Heart is regular. There is no rub. CHEST: Clear, symmetrical, unlabored. ABDOMEN: Soft, nontender, nondistended. EXTREMITIES: No clubbing or cyanosis. Evidence of *------* edema. PSYCHIATRIC: Appropriate affect, pleasant mood. DIAGNOSTICS: Lab values are as follows: Hematology obtained on 10/13/2018: WBC's are 8.0, hemoglobin is 12.7, hematocrit is 35.7, platelet count is 178,000. Chemistry obtained on 10/13/2018: Sodium is 143, potassium 3.8, chloride is 106, carbon dioxide is 31, BUN 28, creatinine is 1.23, glucose 146, calcium is 8.8, magnesium is 1.8. IMPRESSION AND PLAN: 1. ACUTE ON CHRONIC DIASTOLIC CONGESTIVE HEART FAILURE. The patient appears to have more of a renal cardio syndrome. The patient has been diuresed. She responded nicely to oral Bumex. Will decrease to daily dose instead of q. 12 given the patient's significant orthostasis. 2. ACUTE ON CHRONIC STAGE 3 CHRONIC KIDNEY DISEASE. Renal biopsy was suggestive of arteriosclerosis. Does not appear to have any autoimmune process. Appreciate Nephrology's help with this. Her creatinine has much better improved. 3. LABILE HYPERTENSION WITH NOW ORTHOSTASIS. The patient was instructed on optimal control. The patient's blood pressures can be very labile and quite orthostatic and she is very symptomatic with these. The patient's clonidine dosages have been decreased. I have actually held the patient's p.r.n. dosages to try to get a clearer picture. Possibly consider a longer acting agent like Procardia XL to help with consistency. I think the clonidine is also making the patient quite sleepy. 4. DIABETES MELLITUS TYPE 2. The patient has decent glycemic control. Follow. 5. GASTROESOPHAGEAL REFLUX DISEASE. Will continue PPI therapy. 6. SEVENTH RIB FRACTURE. Continue lidocaine patch as well as pain medicine p.r.n. 7. DIABETIC GASTROPARESIS. The patient had a bad day yesterday. She has been given a higher nocturnal dose of Reglan with 5 with meals. Will see how she does through the day. DISPOSITION: THE PATIENT IS A FULL CODE. Pending the patient's symptomatology and diagnostic findings, will re-evaluate in the a.m. Time spent on this followup, including assessment, plan, physical examination, patient education, review of records, is 35 minutes. DICTATING PHYSICIAN: EVANGELINA BARBOSA NP [id number] PHY#: [id number] ID: [id number] JOB#: [id number] ACCT: [id number] cc: >
[2018-10-13] MEDS: ISOSORBIDE MONONITRATE 30 MG TAB.ER.24H PO SCH (21:53)
[2018-10-13] MEDS: INSULIN GLARGINE,HUM.REC.ANLOG 300 UNIT/3 ML INSULN.PEN SUBCUT SCH (21:55)
[2018-10-13] MEDS: AMLODIPINE BESYLATE 5 MG TABLET PO SCH (21:56)
[2018-10-13] MEDS: ATORVASTATIN CALCIUM 40 MG TABLET PO SCH (21:56)
[2018-10-13] MEDS: PHARMACY COMMUNICATION ORDER MC SCH (22:06)
[2018-10-14] MEDS: PROMETHAZINE HCL INJ 25 MG/1 ML VIAL IV PRN ×4 (04:03→23:03)
[2018-10-14] MEDS: ONDANSETRON 4 MG TAB.RAPDIS PO PRN ×3 (05:47→21:26)
[2018-10-14] MEDS: HYDROCODONE/ACETAMINOPHEN 10-325 MG TABLET PO SCH (05:51)
[2018-10-14] MEDS: LANSOPRAZOLE 30 MG TAB.RAP.DR PO SCH (05:51)
[2018-10-14] MEDS: CLONIDINE HCL 0.2 MG TABLET PO SCH ×2 (05:51→16:42)
[2018-10-14 08:38] LABS: ANION GAP 8 (5-19); BLOOD UREA NITROGEN 28 mg/dL (7-20); CALCIUM 9.1 mg/dL (8.4-10.2); CARBON DIOXIDE 29 mmol/L (22-30); CHLORIDE 105 mmol/L (98-107); GLUCOSE 186 mg/dL (75-110); POTASSIUM 4.3 mmol/L (3.6-5.0); SODIUM 141.9 mmol/L (137-145)
[2018-10-14] MEDS: METOCLOPRAMIDE HCL 10 MG TABLET PO SCH ×3 (09:52→15:59)
[2018-10-14] MEDS: DOCUSATE SODIUM 100 MG CAPSULE PO SCH (09:53)
[2018-10-14] MEDS: LIDOCAINE 5% (700 MG) TRANSDERMAL ADH..PATCH TP SCH (09:53)
[2018-10-14] MEDS ORDERED: BUMETANIDE 1 MG TABLET PO SCH (10:00)
--- NOTE | 2018-10-14 10:23 | PDOC PROGRESS REPORT ---
Addendum entered and electronically signed by MAJO RICHARDS PA-C 10/14/18 17:08: Provider Note Provider Note: Patient has not taken oral medications. She refuses to do so. Stop oral lisinopril, oral Bumex, and as needed oral clonidine. Start scheduled IV Bumex, iv Vasotec, and as needed IV hydralazine. Original Note: Subjective Progress Note for:: 10/14/18 Subjective:: Patient is evaluated in bed today. She reports no improvement in her gastroparesis. She appears to be uncomfortable. Last meal was yesterday evening. She reports onset of gastroparesis this morning. Related episodes of nausea and vomiting. No improvements with the initiation of Reglan at this time. She denies any recent or thorough static hypotension symptoms. Blood pressure continues to be elevated, but has been higher at other times during the admission. She denies any other acute problems. She also reports the nausea and vomiting are consistent with previous episodes of gastroparesis. She reports diabetes times 20 years, and poor blood pressure and blood glucose control much of that time. Reason For Visit: HEART FAILURE Physical Exam Vital Signs: Temp Pulse Resp BP Pulse Ox 97.7 F 79 17 191/69 H 97 10/13/18 23:14 10/13/18 23:24 10/13/18 23:14 10/13/18 23:24 10/13/18 23:24 Intake & Output 10/13/18 10/14/18 10/15/18 06:59 06:59 06:59 Intake Total 80 1268 Output Total 750 2180 Balance -670 -912 Weight 54.3 kg 54.4 kg General appearance: PRESENT: cooperative, other - Uncomfortable Head exam: PRESENT: atraumatic, normocephalic Eye exam: PRESENT: conjunctiva pink, EOMI, PERRLA. ABSENT: scleral icterus Ear exam: PRESENT: normal external ear exam Mouth exam: PRESENT: moist Cardiovascular exam: PRESENT: RRR, +S1, +S2, other GI/Abdominal exam: PRESENT: other - Soft, nontender, nondistended. Rectal exam: PRESENT: deferred Neurological exam: PRESENT: alert, awake, oriented to person, oriented to place, oriented to time, oriented to situation, CN II-XII grossly intact. ABSENT: motor sensory deficit Psychiatric exam: PRESENT: anxious Results Laboratory Results: 10/13/18 04:35 10/14/18 07:55 10/14/18 07:55 Sodium 141.9 Potassium 4.3 Chloride 105 Carbon Dioxide 29 Anion Gap 8 BUN 28 H Creatinine 1.28 H Est GFR ( Amer) 52 L Est GFR (Non-Af Amer) 43 L Glucose 186 H Calcium 9.1 Magnesium 1.7 09/28/18 09/29/18 09/29/18 22:55 01:52 01:52 Creatine Kinase 197 H CK-MB (CK-2) 2.27 Troponin I < 0.012 < 0.012 NT-Pro-B Natriuret Pep 4310 H 09/29/18 09/29/18 09/29/18 07:58 07:58 15:00 Creatine Kinase 149 H 120 CK-MB (CK-2) 1.45 Troponin I < 0.012 NT-Pro-B Natriuret Pep 09/29/18 09/30/18 15:00 04:06 Creatine Kinase CK-MB (CK-2) 0.99 Troponin I < 0.012 NT-Pro-B Natriuret Pep 4370 H Impressions: Chest X-Ray 09/28/18 20:26 IMPRESSION: Bilateral pleural effusions. Renal Biopsy CT 10/02/18 00:00 IMPRESSION: CT GUIDED RIGHT KIDNEY CORTICAL BIOPSY. IV CONSCIOUS SEDATION Guidance Needle Placement CT 10/03/18 00:00 IMPRESSION: CT GUIDED RIGHT KIDNEY CORTICAL BIOPSY. IV CONSCIOUS SEDATION Ribs X-Ray 10/08/18 00:00 IMPRESSION: Nondisplaced posterior lateral right seventh rib fracture. Osteopenia. Small right pleural effusion copyright 2011 [employer]- All Rights Reserved Assessment & Plan - Diagnosis (1) Acute kidney injury superimposed on chronic kidney disease Is this a current diagnosis for this admission?: Yes (2) Acute on chronic diastolic CHF (congestive heart failure), NYHA class 2 Is this a current diagnosis for this admission?: Yes (3) Diabetes mellitus Qualifiers: Diabetes mellitus type: type 2 Diabetes mellitus chcf insulin use: with handle bender use Diabetes mellitus complication detail: with nephropathy Is this a current diagnosis for this admission?: Yes (4) Diabetic gastroparesis Is this a current diagnosis for this admission?: Yes (5) Hypertensive urgency Is this a current diagnosis for this admission?: Yes (6) Mitral regurgitation Qualifiers: Cardiac valve disease etiology: nonrheumatic Qualified Code(s): I34.0 - Nonrheumatic mitral (valve) insufficiency Is this a current diagnosis for this admission?: Yes - Time Time Spent with patient: 15-24 minutes Medications reviewed and adjusted accordingly: Yes - Inpatient Certification Based on my medical assessment, after consideration of the patient's comorbidities, presenting symptoms, or acuity I expect that the services needed warrant INPATIENT care.: Yes I certify that my determination is in accordance with my understanding of Medicare's requirements for reasonable and necessary INPATIENT services [42 CFR 412.3e].: Yes - Plan Summary Plan Summary: 1. Gastroparesis-continues to report nausea and vomiting. Increase Reglan from 5 mg to 10 mg 3 times daily with meals. Stop nightly dose for now. Continue with as needed Zofran and Phenergan as ordered. Patient is unwilling to discontinue her home dose of Rochelle. 2. Labile hypertension. No recent episodes of orthostatic hypotension. Systo lic blood pressure continues to be elevated. Clonidine appears to be titrating down. She is unclear which medication was stopped and resulted in less orthostatic symptoms. PRN clonidine doses appear to be being held. We will continue to monitor, and consider changing amlodipine to Procardia XL. 3. Acute on chronic congestive heart failure. Stable at this time. Much improved since admission. 4. CKD stage III. Creatinine appears to be close to baseline. 1.28. Renal biopsy was suggestive of arterial sclerosis. No appearance of autoimmune destruction. Nephrology is assisting. 5 aortic valve insufficiency. No acute problems. Advised patient she should follow-up outpatient w/cardio and obtain echocardiogram. 6 diabetes mellitus. Blood glucose continues to be elevated. In the upper 100s and lower 200s. Increase Lantus from 10 units nightly to 12 units. Consider increasing for continued hyperglycemia, and switching to twice daily if hypoglycemic episodes occur.
[2018-10-14] MEDS: PANTOT AC/MIN OIL/PET HY-PHL OINT 50 GM TOP SCH ×2 (11:20→17:34)
[2018-10-14] MEDS: CHOLECALCIFEROL (D3) 1,000 UNIT TABLET PO SCH (12:24)
[2018-10-14] MEDS: FERROUS SULFATE 325 MG TABLET PO SCH (12:24)
[2018-10-14] MEDS: ASCORBIC ACID 500 MG TABLET PO SCH (12:24)
[2018-10-14] MEDS: METOLAZONE 2.5 MG TABLET PO SCH ×2 (12:24→17:34)
[2018-10-14] MEDS: LISINOPRIL 10 MG TABLET PO SCH (12:29)
[2018-10-14] MEDS: FONDAPARINUX SODIUM INJ 2.5 MG/0.5 ML DISP.SYRIN SUBCUT SCH (12:36)
[2018-10-14] MEDS: SPIRONOLACTONE 25 MG TABLET PO SCH ×2 (16:20→23:10)
[2018-10-14] MEDS ORDERED: ENALAPRILAT DIHYDRATE INJ/PF 1.25 MG/1 ML SDV IV SCH (17:15)
[2018-10-14] MEDS: BUMETANIDE INJ/PF 1 MG/4 ML SDV IV SCH (17:42)
[2018-10-14] MEDS: MORPHINE SULFATE 10 MG/ML INJ IV PRN (17:43)
--- NOTE | 2018-10-14 19:55 | PDOC PROGRESS REPORT ---
Subjective Progress Note for:: 10/14/18 Subjective:: Patient did not have a very good day today. She continues to be nauseated and at times vomiting refusing all her oral medications. Her blood pressure is elevated today because she has not been able to take her oral medications and it was switch to IV equivalent. She was also noted to have this muscle twitching which involves her abdomen. When I was seeing her all of a sudden she started holding onto her stomach and there seems to be some tightening of the muscles and some involuntary movements of her left hip muscles as well which she said she could not control. This lasted about possibly 2-3 minutes and spontaneous spontaneously stopped. He said that is the third time that this was happening for today. Patient was started on Reglan about 2 days ago due to her persistent nausea and vomiting related to her diabetic gastroparesis. Other than that she did not really complain of anything else but she feels horrible. Reason For Visit: HEART FAILURE Physical Exam Vital Signs: Temp Pulse Resp BP Pulse Ox 99.1 F 107 H 16 227/82 H 98 10/14/18 15:39 10/14/18 15:39 10/14/18 15:39 10/14/18 15:39 10/14/18 15:39 Intake & Output 10/13/18 10/14/18 10/15/18 06:59 06:59 06:59 Intake Total 80 1268 670 Output Total 750 2180 300 Balance -670 -912 370 Weight 54.3 kg 54.4 kg Exam: General appearance: PRESENT: no acute distress, cooperative, well-developed, well-nourished Head exam: PRESENT: atraumatic, normocephalic Eye exam: PRESENT: conjunctiva pale, PERRLA. ABSENT: scleral icterus Neck exam: ABSENT: JVD Respiratory exam: PRESENT: Normal breath sounds. ABSENT: crackles, rales, rhonchi, unlabored, wheezes Cardiovascular exam: PRESENT: Regular rate rhythm -+S1, +S2. ABSENT: diastolic murmur, systolic murmur GI/Abdominal exam: PRESENT: normal bowel sounds, soft. ABSENT: guarding, mass, tenderness Extremities exam: ABSENT: No edema Neurological exam: PRESENT: alert, awake, oriented to person, place and time. Skin exam: PRESENT: dry, warm, Cardiovascular exam: PRESENT: +S1, +S2, systolic murmur GI/Abdominal exam: PRESENT: normal bowel sounds, soft. ABSENT: organomegaly, renal bruit, tenderness Results Laboratory Results: 10/13/18 04:35 10/14/18 07:55 10/14/18 07:55 Sodium 141.9 Potassium 4.3 Chloride 105 Carbon Dioxide 29 Anion Gap 8 BUN 28 H Creatinine 1.28 H Est GFR ( Amer) 52 L Est GFR (Non-Af Amer) 43 L Glucose 186 H Calcium 9.1 Magnesium 1.7 09/28/18 09/29/18 09/29/18 22:55 01:52 01:52 Creatine Kinase 197 H CK-MB (CK-2) 2.27 Troponin I < 0.012 < 0.012 NT-Pro-B Natriuret Pep 4310 H 09/29/18 09/29/18 09/29/18 07:58 07:58 15:00 Creatine Kinase 149 H 120 CK-MB (CK-2) 1.45 Troponin I < 0.012 NT-Pro-B Natriuret Pep 09/29/18 09/30/18 15:00 04:06 Creatine Kinase CK-MB (CK-2) 0.99 Troponin I < 0.012 NT-Pro-B Natriuret Pep 4370 H Impressions: Chest X-Ray 09/28/18 20:26 IMPRESSION: Bilateral pleural effusions. Renal Biopsy CT 10/02/18 00:00 IMPRESSION: CT GUIDED RIGHT KIDNEY CORTICAL BIOPSY. IV CONSCIOUS SEDATION Guidance Needle Placement CT 10/03/18 00:00 IMPRESSION: CT GUIDED RIGHT KIDNEY CORTICAL BIOPSY. IV CONSCIOUS SEDATION Ribs X-Ray 10/08/18 00:00 IMPRESSION: Nondisplaced posterior lateral right seventh rib fracture. Osteopenia. Small right pleural effusion copyright 2010 [employer]- All Rights Reserved Assessment & Plan - Diagnosis (1) Nephrotic range proteinuria Is this a current diagnosis for this admission?: Yes Plan: Preliminary renal biopsy report showed nodular diabetic sclerosis with segmental scarring, severe arteriosclerosis with mild to moderate interstitial fibrosis and tubular atrophy. Final biopsy report still pending. Patient's swelling has almost completely resolved at this point and is currently just on maintenance diuretics. (2) Acute kidney injury superimposed on chronic kidney disease Is this a current diagnosis for this admission?: Yes Plan: Kidney function has been stable for the past week so I think patient is now on her baseline kidney function. Acute kidney injury has now resolved. (3) Hypertension Qualifiers: Hypertension type: essential hypertension Qualified Code(s): I10 - Essential (primary) hypertension Is this a current diagnosis for this admission?: Yes Plan: Due to the patient's inability to take her oral medications her blood pressure has been spiking again. Her medications has been switched to IV forms. I will replace her oral clonidine with clonidine patch 0.2 mg q. weekly starting tonig ht. (4) Nausea and vomiting Qualifiers: Vomiting type: bilious vomiting Qualified Code(s): R11.14 - Bilious vomiting Is this a current diagnosis for this admission?: Yes Plan: Secondary to diabetic gastroparesis. Resistant to Phenergan and Zofran unfortunately. Reglan is also ineffective. (5) Diabetic gastroparesis Is this a current diagnosis for this admission?: Yes Plan: Unfortunately no effective therapy has been proven at this time. We need to discontinue the Reglan due to possible dyskinesia as a reaction to it. (6) Involuntary muscle contractions Is this a current diagnosis for this admission?: Yes Plan: This could be a reaction from Reglan causing possible dyskinesia and extrapyramidal symptoms. I will hold the Reglan for now. We will give her Benadryl 25 mg IV x1 dose now. (7) Chronic kidney disease (CKD), stage III (moderate) Is this a current diagnosis for this admission?: Yes Plan: Per kidney biopsy this is secondary to diabetic nephropathy with nephrotic range proteinuria and contribution of hypertensive nephrosclerosis. I believe the patient is at her baseline kidney function now. (8) Anemia Qualifiers: Anemia type: iron deficiency Iron deficiency anemia type: inadequate dietary iron intake Qualified Code(s): D50.8 - Other iron deficiency anemias Is this a current diagnosis for this admission?: Yes Plan: Improved. Currently acceptable and does not need any Procrit or ferrous sulfate. (9) Acute on chronic diastolic CHF (congestive heart failure), NYHA class 2 Is this a current diagnosis for this admission?: Yes Plan: Stable and compensated.. (10) Diabetes mellitus type 2 in nonobese Is this a current diagnosis for this admission?: Yes (11) Bilateral pleural effusion Is this a current diagnosis for this admission?: Yes (12) Mitral regurgitation Qualifiers: Cardiac valve disease etiology: nonrheumatic Qualified Code(s): I34.0 - Nonrheumatic mitral (valve) insufficiency Is this a current diagnosis for this admission?: Yes (13) Bilateral lower extremity edema Is this a current diagnosis for this admission?: Yes Plan: Resolved. - Time Time with patient: Greater than 35 minutes
[2018-10-14] MEDS ORDERED: DIPHENHYDRAMINE HCL 50 MG/ML VIAL IV ONE (20:15)
[2018-10-14 21:10] LABS: ALANINE AMINOTRANSFERASE 14 U/L (9-52); ALBUMIN 3.8 g/dL (3.5-5.0); ALKALINE PHOSPHATASE 125 U/L (38-126); ASPARTATE AMINO TRANSFERASE 27 U/L (14-36); BILIRUBIN,DIRECT 0.2 mg/dL (0.0-0.4); BILIRUBIN,TOTAL 0.5 mg/dL (0.2-1.3); BLOOD UREA NITROGEN 27 mg/dL (7-20); CALCIUM 9.4 mg/dL (8.4-10.2); GLUCOSE 336 mg/dL (75-110); POTASSIUM 3.7 mmol/L (3.6-5.0); TOTAL PROTEIN 6.3 g/dL (6.3-8.2)
[2018-10-14 21:14] LABS: CHLORIDE 103 mmol/L (98-107); SODIUM 141.1 mmol/L (137-145)
[2018-10-14 21:30] LABS: ANION GAP 21 (5-19); CARBON DIOXIDE 17 mmol/L (22-30)
[2018-10-14] MEDS: CLONIDINE 0.2 MG/24 HR PATCH.TDWK TD SCH (22:56)
[2018-10-14] MEDS: INSULIN LISPRO 100 UNIT/ML 3 ML VIAL SUBCUT PRN (22:57)
[2018-10-14] MEDS: ISOSORBIDE MONONITRATE 30 MG TAB.ER.24H PO SCH (23:10)
[2018-10-14] MEDS: INSULIN GLARGINE,HUM.REC.ANLOG 300 UNIT/3 ML INSULN.PEN SUBCUT SCH (23:10)
[2018-10-14] MEDS: PHARMACY COMMUNICATION ORDER MC SCH (23:11)
[2018-10-14] MEDS: AMLODIPINE BESYLATE 5 MG TABLET PO SCH (23:11)
[2018-10-14] MEDS: ATORVASTATIN CALCIUM 40 MG TABLET PO SCH (23:11)
[2018-10-15] MEDS ORDERED: DIPHENHYDRAMINE HCL 50 MG/ML VIAL ONE (01:20)
[2018-10-15] MEDS: ENALAPRILAT DIHYDRATE INJ/PF 1.25 MG/1 ML SDV IV SCH ×5 (01:36→18:38)
[2018-10-15] MEDS ORDERED: DIPHENHYDRAMINE HCL 50 MG/ML VIAL IV PRN (01:43)
[2018-10-15] MEDS ORDERED: HYDRALAZINE HCL INJ/PF 20 MG/1 ML SDV ONE (03:11)
[2018-10-15] MEDS: MORPHINE SULFATE 10 MG/ML INJ IV PRN ×2 (03:14→08:01)
[2018-10-15] MEDS: HYDRALAZINE HCL INJ/PF 20 MG/1 ML SDV IV PRN ×2 (03:41→16:36)
[2018-10-15] MEDS: LABETALOL HCL INJ 20 MG/4 ML DISP.SYRIN IV PRN ×2 (04:20→14:51)
[2018-10-15 05:58] LABS: HEMATOCRIT 38.3 % (36.0-47.0); HEMOGLOBIN 13.2 g/dL (12.0-15.5); MEAN CORPUSCULAR HEMOGLOBIN 28.2 pg (27.0-33.4); MEAN CORPUSCULAR HGB CONC 34.4 g/dL (32.0-36.0); MEAN CORPUSCULAR VOLUME 82 fl (80-97); PLATELET COUNT 220 10^3/uL (150-450); RED BLOOD COUNT 4.68 10^6/uL (3.72-5.28); RED CELL DISTRIBUTION WIDTH 16.8 % (11.5-14.0); WHITE BLOOD COUNT 14.7 10^3/uL (4.0-10.5)
[2018-10-15 06:16] LABS: BLOOD UREA NITROGEN 37 mg/dL (7-20); CALCIUM 8.9 mg/dL (8.4-10.2); CHLORIDE 106 mmol/L (98-107); GLUCOSE 267 mg/dL (75-110); POTASSIUM 4.2 mmol/L (3.6-5.0); SODIUM 141.3 mmol/L (137-145)
[2018-10-15] MEDS: INSULIN LISPRO 100 UNIT/ML 3 ML VIAL SUBCUT PRN (06:19)
[2018-10-15] MEDS: LANSOPRAZOLE 30 MG TAB.RAP.DR PO SCH (06:24)
[2018-10-15 06:25] LABS: ANION GAP 7 (5-19)
[2018-10-15] MEDS: PROMETHAZINE HCL INJ 25 MG/1 ML VIAL IV PRN ×3 (06:27→21:47)
[2018-10-15 06:30] LABS: CARBON DIOXIDE 28 mmol/L (22-30)
--- NOTE | 2018-10-15 08:32 | RADIOLOGY REPORT (SQ) ---
EXAM DESCRIPTION: CT ABD/PELVIS NO ORAL OR IV COMPLETED DATE/TIME: 10/15/2018 8:18 am REASON FOR STUDY: Nausea, vomiting, abdominal pain. COMPARISON: None. TECHNIQUE: CT scan of the abdomen and pelvis performed without intravenous or oral contrast. Images reviewed with lung, soft tissue, and bone windows. Reconstructed coronal and sagittal MPR images revi ewed. All images stored on PACS. All CT scanners at this facility use dose modulation, iterative reconstruction, and/or weight based d osing when appropriate to reduce radiation dose to as low as reasonably achievable (ALARA). [facility]: Dose Right [facility]: CareDose [facility]: Dose Right [facility]: Teradose 4D [facility]: [employer] RADIATION DOSE: mGy. LIMITATIONS: None. FINDINGS: LOWER CHEST: No significant findings. No nodules or infiltrates. NON-CONTRASTED LIVER, SPLEEN, ADRENALS: Evaluation limited by lack of IV contrast. No identified sign ificant masses. PANCREAS: No masses. No peripancreatic inflammatory changes. GALLBLADDER: Surgically absent. RIGHT KIDNEY AND URETER: No suspicious masses. Assessment limited by lack of IV contrast. No signif icant calcifications. No hydronephrosis or hydroureter. LEFT KIDNEY AND URETER: No suspicious masses. Assessment limited by lack of IV contrast. No signifi cant calcifications. No hydronephrosis or hydroureter. AORTA AND RETROPERITONEUM: No aneurysm. No retroperitoneal masses or adenopathy. BOWEL AND PERITONEAL CAVITY: No obvious masses or inflammatory changes. No free fluid. APPENDIX: Normal. PELVIS, BLADDER, AND ABDOMINAL WALL:9.4 cm serosal fibroid to right of midline. BONES: Nothing acute. OTHER: No other significant finding. IMPRESSION: Large fibroid. No acute findings. COMMENT: Quality ID # [id number]: Final reports with documentation of one or more dose reduction techniques (e.g., Automated exposure control, adjustment of the mA and/or kV according to patient size, use of iterative reconstruction technique) TECHNICAL DOCUMENTATION: JOB ID: [id number] [employer]- All Rights Reserved Reading location - IP/workstation name: [facility]
[2018-10-15] MEDS: ASCORBIC ACID 500 MG TABLET PO SCH ×2 (10:43→22:30)
[2018-10-15] MEDS: CHOLECALCIFEROL (D3) 1,000 UNIT TABLET PO SCH ×2 (10:43→22:30)
[2018-10-15] MEDS: FERROUS SULFATE 325 MG TABLET PO SCH ×2 (10:44→22:29)
[2018-10-15] MEDS: DOCUSATE SODIUM 100 MG CAPSULE PO SCH ×2 (10:45→17:42)
[2018-10-15] MEDS: FONDAPARINUX SODIUM INJ 2.5 MG/0.5 ML DISP.SYRIN SUBCUT SCH (10:46)
[2018-10-15] MEDS: PANTOT AC/MIN OIL/PET HY-PHL OINT 50 GM TOP SCH ×2 (10:46→18:38)
[2018-10-15] MEDS: BUMETANIDE INJ/PF 1 MG/4 ML SDV IV SCH (10:48)
[2018-10-15] MEDS: METOLAZONE 2.5 MG TABLET PO SCH (10:48)
[2018-10-15] MEDS: SPIRONOLACTONE 25 MG TABLET PO SCH ×3 (10:48→22:53)
[2018-10-15] MEDS: LIDOCAINE 5% (700 MG) TRANSDERMAL ADH..PATCH TP SCH (10:49)
[2018-10-15] MEDS ORDERED: ONDANSETRON HCL INJ/PF 4 MG/2 ML SDV ONE (11:04)
[2018-10-15] MEDS ORDERED: ONDANSETRON HCL INJ/PF 4 MG/2 ML SDV IV PRN (11:12)
[2018-10-15] MEDS ORDERED: 1/2 NORMAL SALINE 1,000 ML IV ONE (11:15)
--- NOTE | 2018-10-15 11:25 | PDOC PROGRESS REPORT ---
Subjective Progress Note for:: 10/15/18 Subjective:: Events overnight reviewed. Since I saw the patient patient had probably 3 more episodes of muscle spasms involving her abdomen and her lower extremities. I gave her Benadryl and she has a standing order for as needed Benadryl for such episodes. CT scan of the abdomen done last night which did not show any acute findings except for large fibroids. 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 So far the blood pressure has gone down. She was also given the clonidine patch. She tells me she feels a little bit better this morning than yesterday but still very much nauseated and vomiting. She has not really been taking much food or fluids orally for the last couple of days. Still refusing her oral medications. Urine output is not being quantified correctly. Reason For Visit: HEART FAILURE Physical Exam Vital Signs: Temp Pulse Resp BP Pulse Ox 99.7 F 105 H 12 156/77 H 100 10/15/18 07:45 10/15/18 11:03 10/15/18 07:45 10/15/18 11:03 10/15/18 07:45 Intake & Output 10/14/18 10/15/18 10/16/18 06:59 06:59 06:59 Intake Total 1268 1025 Output Total 2180 300 Balance -912 725 Weight 54.4 kg 54.6 kg Exam: General appearance: PRESENT: no acute distress, cooperative, comfortably lying in bed Head exam: PRESENT: atraumatic, normocephalic Eye exam: PRESENT: conjunctiva pale, PERRLA. ABSENT: scleral icterus Neck exam: ABSENT: JVD Respiratory exam: PRESENT: Normal breath sounds. ABSENT: crackles, rales, rhonchi, unlabored, wheezes Cardiovascular exam: PRESENT: Regular rate rhythm -+S1, +S2. Grade 2/6 systolic murmur GI/Abdominal exam: PRESENT: normal bowel sounds, soft. ABSENT: guarding, mass, tenderness Extremities exam: ABSENT: No edema Neurological exam: PRESENT: alert, awake, oriented to person, place and time. Skin exam: PRESENT: dry, warm, Cardiovascular exam: PRESENT: +S1, +S2, systolic murmur Results Laboratory Results: 10/15/18 05:20 10/15/18 05:20 10/14/18 10/15/18 10/15/18 20:42 05:20 05:20 WBC 14.7 H RBC 4.68 Hgb 13.2 Hct 38.3 MCV 82 MCH 28.2 MCHC 34.4 RDW 16.8 H Plt Count 220 Sodium 141.1 141.3 Potassium 3.7 4.2 Chloride 103 106 Carbon Dioxide 17 L D 28 D Anion Gap 21 H 7 BUN 27 H 37 H Creatinine 1.42 H 1.62 H Est GFR ( Amer) 46 L 40 L Est GFR (Non-Af Amer) 38 L 33 L Glucose 336 H 267 H Calcium 9.4 8.9 Magnesium 1.8 1.9 Total Bilirubin 0.5 AST 27 ALT 14 Alkaline Phosphatase 125 Total Protein 6.3 Albumin 3.8 09/28/18 09/29/18 09/29/18 22:55 01:52 01:52 Creatine Kinase 197 H CK-MB (CK-2) 2.27 Troponin I < 0.012 < 0.012 NT-Pro-B Natriuret Pep 4310 H 09/29/18 09/29/18 09/29/18 07:58 07:58 15:00 Creatine Kinase 149 H 120 CK-MB (CK-2) 1.45 Troponin I < 0.012 NT-Pro-B Natriuret Pep 09/29/18 09/30/18 15:00 04:06 Creatine Kinase CK-MB (CK-2) 0.99 Troponin I < 0.012 NT-Pro-B Natriuret Pep 4370 H Impressions: Chest X-Ray 09/28/18 20:26 IMPRESSION: Bilateral pleural effusions. Renal Biopsy CT 10/02/18 00:00 IMPRESSION: CT GUIDED RIGHT KIDNEY CORTICAL BIOPSY. IV CONSCIOUS SEDATION Guidance Needle Placement CT 10/03/18 00:00 IMPRESSION: CT GUIDED RIGHT KIDNEY CORTICAL BIOPSY. IV CONSCIOUS SEDATION Ribs X-Ray 10/08/18 00:00 IMPRESSION: Nondisplaced posterior lateral right seventh rib fracture. Osteopenia. Small right pleural effusion copyright 2011 [employer]- All Rights Reserved Abdomen/Pelvis CT 10/14/18 00:00 IMPRESSION: Large fibroid. No acute findings. Assessment & Plan - Diagnosis (1) Nephrotic range proteinuria Is this a current diagnosis for this admission?: Yes Plan: Preliminary renal biopsy report showed nodular diabetic sclerosis with segmental scarring, severe arteriosclerosis with mild to moderate interstitial fibrosis and tubular atrophy. Final biopsy report still pending. Patient's swelling has almost completely resolved at this point. (2) Acute kidney injury superimposed on chronic kidney disease Is this a current diagnosis for this admission?: Yes Plan: Her kidney function has been stable until yesterday and today when her BUN and creatinine has gone up. I think the patient is getting dehydrated and volume depleted because of poor oral intake due to her nausea and vomiting. I will hold her Bumex and Zaroxolyn for now and give her a bag of half normal saline. (3) Hypertension Qualifiers: Hypertension type: essential hypertension Qualified Code(s): I10 - Essential (primary) hypertension Is this a current diagnosis for this admission?: Yes Plan: Due to the patient's inability to take her oral medications her blood pressure has been spiking again. Her medications has been switched to IV forms. Continue current clonidine patch and IV medications. We will try to switch him back to the oral medications once her nausea vomiting is hopefully better. (4) Nausea and vomiting Qualifiers: Vomiting type: bilious vomiting Qualified Code(s): R11.14 - Bilious vomiting Is this a current diagnosis for this admission?: Yes Plan: Secondary to diabetic gastroparesis. Resistant to Phenergan and Zofran un fortunately. Reglan is also ineffective. (5) Diabetic gastroparesis Is this a current diagnosis for this admission?: Yes Plan: Unfortunately no effective therapy has been proven at this time. We need to discontinue the Reglan due to possible acute dystonia or dyskinesia as a reaction to it. (6) Involuntary muscle contractions Is this a current diagnosis for this admission?: Yes Plan: This could be a reaction from Reglan causing possible acute dystonia, dyskinesia and extrapyramidal symptoms. I will hold the Reglan for now. We will give her Benadryl 25 mg IV x1 dose now and as needed. (7) Chronic kidney disease (CKD), stage III (moderate) Is this a current diagnosis for this admission?: Yes Plan: Per kidney biopsy this is secondary to diabetic nephropathy with nephrotic range proteinuria and contribution of hypertensive nephrosclerosis. I believe the patient is at her baseline kidney function now. (8) Anemia Qualifiers: Anemia type: iron deficiency Iron deficiency anemia type: inadequate dietary iron intake Qualified Code(s): D50.8 - Other iron deficiency anemias Is this a current diagnosis for this admission?: Yes Plan: Improved. Currently acceptable and does not need any Procrit or ferrous sulfate. (9) Acute on chronic diastolic CHF (congestive heart failure), NYHA class 2 Is this a current diagnosis for this admission?: Yes Plan: Stable and compensated.. (10) Diabetes mellitus type 2 in nonobese Is this a current diagnosis for this admission?: Yes (11) Bilateral pleural effusion Is this a current diagnosis for this admission?: Yes (12) Mitral regurgitation Qualifiers: Cardiac valve disease etiology: nonrheumatic Qualified Code(s): I34.0 - Nonrheumatic mitral (valve) insufficiency Is this a current diagnosis for this admission?: Yes (13) Bilateral lower extremity edema Is this a current diagnosis for this admission?: Yes Plan: Resolved. - Time Time with patient: 15-25 minutes
--- NOTE | 2018-10-15 18:31 | PDOC PROGRESS REPORT ---
Subjective Progress Note for:: 10/15/18 Subjective:: This is a very pleasant 58 years old female patient admitted for worsening shortness of breath due to acute on chronic diastolic CHF exacerbation. Patient also found to have acute on chronic kidney injury. She has been on Zaroxolyn and Bumex which is on hold per recommendation of Dr. Nichols. Her creatinine a little bit worse than yesterday. 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 Currently patient is awake alert oriented and she is not in distress. Reason For Visit: HEART FAILURE Physical Exam Vital Signs: Temp Pulse Resp BP Pulse Ox 98.6 F 101 H 12 184/75 H 99 10/15/18 16:04 10/15/18 16:04 10/15/18 16:04 10/15/18 16:04 10/15/18 16:04 Intake & Output 10/14/18 10/15/18 10/16/18 06:59 06:59 06:59 Intake Total 1268 1025 118 Output Total 2180 300 300 Balance -912 725 -182 Weight 54.4 kg 54.6 kg General appearance: PRESENT: no acute distress Eye exam: PRESENT: conjunctiva pink Respiratory exam: PRESENT: clear to auscultation joshua. ABSENT: rales, rhonchi, wheezes Cardiovascular exam: PRESENT: RRR. ABSENT: diastolic murmur, rubs, systolic murmur Neurological exam: PRESENT: alert, awake, oriented to time, oriented to situation Results Laboratory Results: 10/15/18 05:20 10/15/18 05:20 10/14/18 10/15/18 10/15/18 20:42 05:20 05:20 WBC 14.7 H RBC 4.68 Hgb 13.2 Hct 38.3 MCV 82 MCH 28.2 MCHC 34.4 RDW 16.8 H Plt Count 220 Sodium 141.1 141.3 Potassium 3.7 4.2 Chloride 103 106 Carbon Dioxide 17 L D 28 D Anion Gap 21 H 7 BUN 27 H 37 H Creatinine 1.42 H 1.62 H Est GFR ( Amer) 46 L 40 L Est GFR (Non-Af Amer) 38 L 33 L Glucose 336 H 267 H Calcium 9.4 8.9 Magnesium 1.8 1.9 Total Bilirubin 0.5 AST 27 ALT 14 Alkaline Phosphatase 125 Total Protein 6.3 Albumin 3.8 12/29/18 12/30/18 12/30/18 22:55 01:52 01:52 Creatine Kinase 197 H CK-MB (CK-2) 2.27 Troponin I < 0.012 < 0.012 NT-Pro-B Natriuret Pep 4310 H 09/29/18 09/29/18 09/29/18 07:58 07:58 15:00 Creatine Kinase 149 H 120 CK-MB (CK-2) 1.45 Troponin I < 0.012 NT-Pro-B Natriuret Pep 09/29/18 09/30/18 15:00 04:06 Creatine Kinase CK-MB (CK-2) 0.99 Troponin I < 0.012 NT-Pro-B Natriuret Pep 4370 H Impressions: Chest X-Ray 09/28/18 20:26 IMPRESSION: Bilateral pleural effusions. Renal Biopsy CT 10/02/18 00:00 IMPRESSION: CT GUIDED RIGHT KIDNEY CORTICAL BIOPSY. IV CONSCIOUS SEDATION Guidance Needle Placement CT 10/03/18 00:00 IMPRESSION: CT GUIDED RIGHT KIDNEY CORTICAL BIOPSY. IV CONSCIOUS SEDATION Ribs X-Ray 10/08/18 00:00 IMPRESSION: Nondisplaced posterior lateral right seventh rib fracture. Osteopenia. Small right pleural effusion copyright 2011 [employer] All Rights Reserved Abdomen/Pelvis CT 10/14/18 00:00 IMPRESSION: Large fibroid. No acute findings. Assessment & Plan - Diagnosis (1) Acute on chronic diastolic CHF (congestive heart failure), NYHA class 2 Is this a current diagnosis for this admission?: Yes Plan: Due to worsening of her kidney function her Bumex and Zaroxolyn is discontinued by Dr. Nichols. And she is started on normal saline bolus. We will start her on her diuretics as her kidney function improves. (2) Acute kidney injury superimposed on chronic kidney disease Is this a current diagnosis for this admission?: Yes Plan: Cautious hydration and BMP in a.m. (3) Diabetes mellitus type 2 in nonobese Is this a current diagnosis for this admission?: Yes Plan: Continue current regimen (4) Hypertension Qualifiers: Hypertension type: essential hypertension Qualified Code(s): I10 - Essential (primary) hypertension Is this a current diagnosis for this admission?: Yes Plan: Continue home medications.
[2018-10-15] MEDS: INSULIN GLARGINE,HUM.REC.ANLOG 300 UNIT/3 ML INSULN.PEN SUBCUT SCH (22:07)
[2018-10-15] MEDS: PHARMACY COMMUNICATION ORDER MC SCH (22:40)
[2018-10-15] MEDS: AMLODIPINE BESYLATE 5 MG TABLET PO SCH (22:51)
[2018-10-15] MEDS: ISOSORBIDE MONONITRATE 30 MG TAB.ER.24H PO SCH (22:52)
[2018-10-15] MEDS: ATORVASTATIN CALCIUM 40 MG TABLET PO SCH (22:52)
[2018-10-16] MEDS: ENALAPRILAT DIHYDRATE INJ/PF 1.25 MG/1 ML SDV IV SCH ×2 (01:56→05:54)
[2018-10-16] MEDS: LANSOPRAZOLE 30 MG TAB.RAP.DR PO SCH (05:56)
[2018-10-16] MEDS: MORPHINE SULFATE 10 MG/ML INJ IV PRN ×2 (06:13→17:50)
[2018-10-16 07:58] LABS: ABSOLUTE BASOPHILS # (AUTO) 0.1 10^3/uL (0.0-0.2); ABSOLUTE EOSINOPHILS # (AUTO) 0.1 10^3/uL (0.0-0.6); ABSOLUTE LYMPHOCYTES (AUTO) 1.4 10^3/uL (0.5-4.7); ABSOLUTE NEUT (AUTO) 9.5 10^3/uL (1.7-8.2); BASOPHILS % (AUTO) 0.8 % (0-2); EOSINOPHILS % (AUTO) 0.5 % (0-6); HEMATOCRIT 32.9 % (36.0-47.0); HEMOGLOBIN 11.3 g/dL (12.0-15.5); LYMPHOCYTES % (AUTO) 11.7 % (13-45); MEAN CORPUSCULAR HEMOGLOBIN 28.4 pg (27.0-33.4); MEAN CORPUSCULAR HGB CONC 34.2 g/dL (32.0-36.0); MEAN CORPUSCULAR VOLUME 83 fl (80-97); PLATELET COUNT 179 10^3/uL (150-450); RED BLOOD COUNT 3.96 10^6/uL (3.72-5.28); RED CELL DISTRIBUTION WIDTH 16.6 % (11.5-14.0); TOTAL CELLS COUNTED % (AUTO) 100 %
[2018-10-16 08:14] LABS: ANION GAP 5 (5-19); BLOOD UREA NITROGEN 55 mg/dL (7-20); CALCIUM 8.4 mg/dL (8.4-10.2); CARBON DIOXIDE 28 mmol/L (22-30); CHLORIDE 106 mmol/L (98-107); GLUCOSE 193 mg/dL (75-110); POTASSIUM 4.6 mmol/L (3.6-5.0); SODIUM 139.4 mmol/L (137-145)
[2018-10-16] MEDS: FERROUS SULFATE 325 MG TABLET PO SCH (09:39)
[2018-10-16] MEDS: DOCUSATE SODIUM 100 MG CAPSULE PO SCH (09:39)
[2018-10-16] MEDS: LIDOCAINE 5% (700 MG) TRANSDERMAL ADH..PATCH TP SCH (09:39)
[2018-10-16] MEDS: ASCORBIC ACID 500 MG TABLET PO SCH (09:40)
[2018-10-16] MEDS: CHOLECALCIFEROL (D3) 1,000 UNIT TABLET PO SCH (09:40)
[2018-10-16] MEDS: PROMETHAZINE HCL INJ 25 MG/1 ML VIAL IV PRN (09:58)
[2018-10-16] MEDS: FONDAPARINUX SODIUM INJ 2.5 MG/0.5 ML DISP.SYRIN SUBCUT SCH (09:58)
[2018-10-16] MEDS ORDERED: HYDRALAZINE HCL INJ/PF 20 MG/1 ML SDV IV PRN (11:01)
--- NOTE | 2018-10-16 11:11 | PDOC PROGRESS REPORT ---
Subjective Progress Note for:: 10/16/18 Subjective:: Patient is feeling a little bit better today. Less episodes of muscle spasms was yesterday afternoon and was given Benadryl. Her blood pressure has drastically fluctuate yesterday to as low as systolic blood pressure of 120s. Her urine output is diminished as well. She still has nausea and vomiting. She denies any shortness of breath or chest pains. Reason For Visit: HEART FAILURE Physical Exam Vital Signs: Temp Pulse Resp BP Pulse Ox 98.9 F 95 18 150/68 H 100 10/16/18 07:27 10/16/18 07:27 10/16/18 07:27 10/16/18 07:27 10/16/18 07:27 Intake & Output 10/15/18 10/16/18 10/17/18 06:59 06:59 06:59 Intake Total 1025 1168 Output Total 300 300 Balance 725 868 Weight 54.6 kg 51.3 kg Exam: General appearance: PRESENT: no acute distress, cooperative, well-developed, well-nourished Head exam: PRESENT: atraumatic, normocephalic Eye exam: PRESENT: conjunctiva pale, PERRLA. ABSENT: scleral icterus Neck exam: ABSENT: JVD Respiratory exam: PRESENT: Diminished breath sounds. ABSENT: crackles, rales, rhonchi, unlabored, wheezes Cardiovascular exam: PRESENT: Regular rate rhythm -+S1, +S2. Grade 2/6 systolic murmur GI/Abdominal exam: PRESENT: normal bowel sounds, soft. ABSENT: guarding, mass, tenderness Extremities exam: ABSENT: No edema Neurological exam: PRESENT: alert, awake, oriented to person, place and time. Skin exam: PRESENT: dry, warm, Cardiovascular exam: PRESENT: +S1, +S2, systolic murmur GI/Abdominal exam: PRESENT: normal bowel sounds, soft. ABSENT: organomegaly, renal bruit, tenderness Results Laboratory Results: 10/16/18 07:50 10/16/18 07:50 10/16/18 10/16/18 07:50 07:50 WBC 12.0 H RBC 3.96 Hgb 11.3 L Hct 32.9 L MCV 83 MCH 28.4 MCHC 34.2 RDW 16.6 H Plt Count 179 Seg Neutrophils % 79.0 H Lymphocytes % 11.7 L Monocytes % 8.0 Eosinophils % 0.5 Basophils % 0.8 Absolute Neutrophils 9.5 H Absolute Lymphocytes 1.4 Absolute Monocytes 1.0 Absolute Eosinophils 0.1 Absolute Basophils 0.1 Sodium 139.4 Potassium 4.6 Chloride 106 Carbon Dioxide 28 Anion Gap 5 BUN 55 H Creatinine 1.93 H Est GFR ( Amer) 32 L Est GFR (Non-Af Amer) 27 L Glucose 193 H Calcium 8.4 09/28/18 09/29/18 09/29/18 22:55 01:52 01:52 Creatine Kinase 197 H CK-MB (CK-2) 2.27 Troponin I < 0.012 < 0.012 NT-Pro-B Natriuret Pep 4310 H 09/29/18 09/29/18 09/29/18 07:58 07:58 15:00 Creatine Kinase 149 H 120 CK-MB (CK-2) 1.45 Troponin I < 0.012 NT-Pro-B Natriuret Pep 09/29/18 09/30/18 15:00 04:06 Creatine Kinase CK-MB (CK-2) 0.99 Troponin I < 0.012 NT-Pro-B Natriuret Pep 4370 H Impressions: Chest X-Ray 09/28/18 20:26 IMPRESSION: Bilateral pleural effusions. Renal Biopsy CT 10/02/18 00:00 IMPRESSION: CT GUIDED RIGHT KIDNEY CORTICAL BIOPSY. IV CONSCIOUS SEDATION Guidance Needle Placement CT 10/03/18 00:00 IMPRESSION: CT GUIDED RIGHT KIDNEY CORTICAL BIOPSY. IV CONSCIOUS SEDATION Ribs X-Ray 10/08/18 00:00 IMPRESSION: Nondisplaced posterior lateral right seventh rib fracture. Osteopenia. Small right pleural effusion copyright 2011 [employer]- All Rights Reserved Abdomen/Pelvis CT 10/14/18 00:00 IMPRESSION: Large fibroid. No acute findings. Assessment & Plan - Diagnosis (1) Nephrotic range proteinuria Is this a current diagnosis for this admission?: Yes Plan: Preliminary renal biopsy report showed nodular diabetic sclerosis with segmental scarring, severe arteriosclerosis with mild to moderate interstitial fibrosis and tubular atrophy. Final biopsy report still pending. Patient's swelling has almost completely resolved at this point. (2) Acute kidney injury superimposed on chronic kidney disease Is this a current diagnosis for this admission?: Yes Plan: Her kidney function has been stable until yesterday and today when her BUN and creatinine has gone up. I think the patient is getting dehydrated and volume depleted because of poor oral intake due to her nausea and vomiting. Other complicating prerenal factor is due to hemodynamic instability with labile blood pressures the last couple of days. I held her Bumex and Zaroxolyn for now and gave her a bag of half normal saline yesterday. I will stop her Vasotec for now. Monitor kidney function and electrolytes. I also encourage patient to start eating and drinking fluids a little bit since she is feeling better today. (3) Hypertension Qualifiers: Hypertension type: essential hypertension Qualified Code(s): I10 - Essential (primary) hypertension Is this a current diagnosis for this admission?: Yes Plan: Very labile. I think her blood pressure yesterday has gotten relatively low for her with a systolic blood pressure into the 120s. I instructed the nurses that we do not want her blood pressure lower than systolic blood pressure 140. Discontinue enalapril for now. Continue IV labetalol and hydralazine as needed with parameters. Encourage patient to start taking her oral medications includi ng amlodipine and spironolactone. Discussed the plan with the nurse taking care of her today. (4) Nausea and vomiting Qualifiers: Vomiting type: bilious vomiting Qualified Code(s): R11.14 - Bilious vomiting Is this a current diagnosis for this admission?: Yes Plan: Secondary to diabetic gastroparesis. Resistant to Phenergan and Zofran unfortunately. Reglan is also ineffective and causing severe adverse reaction. (5) Diabetic gastroparesis Is this a current diagnosis for this admission?: Yes Plan: Unfortunately no effective therapy has been proven at this time. Reglan has been discontinued due to possible acute dystonia or dyskinesia as a reaction to it. (6) Involuntary muscle contractions Is this a current diagnosis for this admission?: Yes Plan: This could be a reaction from Reglan causing possible acute dystonia, dyskinesia and extrapyramidal symptoms. Reglan was discontinued. We will give her Benadryl 25 mg IV as needed. (7) Chronic kidney disease (CKD), stage III (moderate) Is this a current diagnosis for this admission?: Yes Plan: Per kidney biopsy this is secondary to diabetic nephropathy with nephrotic range proteinuria and contribution of hypertensive nephrosclerosis. I believe the patient is at her baseline kidney function now. (8) Anemia Qualifiers: Anemia type: iron deficiency Iron deficiency anemia type: inadequate dietary iron intake Qualified Code(s): D50.8 - Other iron deficiency anemias Is this a current diagnosis for this admission?: Yes Plan: Improved. Currently acceptable and does not need any Procrit or ferrous sulfate. (9) Acute on chronic diastolic CHF (congestive heart failure), NYHA class 2 Is this a current diagnosis for this admission?: Yes Plan: Stable and compensated.. (10) Diabetes mellitus type 2 in nonobese Is this a current diagnosis for this admission?: Yes (11) Bilateral pleural effusion Is this a current diagnosis for this admission?: Yes (12) Mitral regurgitation Qualifiers: Cardiac valve disease etiology: nonrheumatic Qualified Code(s): I34.0 - Nonrheumatic mitral (valve) insufficiency Is this a current diagnosis for this admission?: Yes (13) Bilateral lower extremity edema Is this a current diagnosis for this admission?: Yes Plan: Resolved. - Time Time with patient: Greater than 35 minutes
[2018-10-16] MEDS: PANTOT AC/MIN OIL/PET HY-PHL OINT 50 GM TOP SCH ×2 (11:30→17:51)
[2018-10-16] MEDS: SPIRONOLACTONE 25 MG TABLET PO SCH ×2 (11:30→23:05)
[2018-10-16] MEDS: INSULIN LISPRO 100 UNIT/ML 3 ML VIAL SUBCUT PRN (11:56)
[2018-10-16 19:12] LABS: APPEARANCE,URINE CLOUDY; BILIRUBIN,URINE NEGATIVE (NEGATIVE); COLOR,URINE YELLOW; GLUCOSE, URINE 150 mg/dL (NEGATIVE); KETONES,URINE NEGATIVE (NEGATIVE); LEUKOCYTE ESTERASE,URINE LARGE (NEGATIVE); NITRITE,URINE NEGATIVE (NEGATIVE); PROTEIN,URINE >=500 mg/dL (NEGATIVE); URINE SPECIFIC GRAVITY 1.019; UROBILINOGEN,URINE NEGATIVE mg/dL (<2.0)
[2018-10-16] MEDS: INSULIN GLARGINE,HUM.REC.ANLOG 300 UNIT/3 ML INSULN.PEN SUBCUT SCH (23:03)
[2018-10-16] MEDS: ATORVASTATIN CALCIUM 40 MG TABLET PO SCH (23:05)
[2018-10-16] MEDS: ISOSORBIDE MONONITRATE 30 MG TAB.ER.24H PO SCH (23:05)
[2018-10-16] MEDS: PHARMACY COMMUNICATION ORDER MC SCH (23:05)
[2018-10-16] MEDS: AMLODIPINE BESYLATE 5 MG TABLET PO SCH (23:05)
[2018-10-17 05:43] LABS: ABSOLUTE EOSINOPHILS # (AUTO) 0.1 10^3/uL (0.0-0.6); ABSOLUTE LYMPHOCYTES (AUTO) 1.1 10^3/uL (0.5-4.7); ABSOLUTE MONOCYTES (AUTO) 0.8 10^3/uL (0.1-1.4); ABSOLUTE NEUT (AUTO) 7.8 10^3/uL (1.7-8.2); BASOPHILS % (AUTO) 0.3 % (0-2); EOSINOPHILS % (AUTO) 1.3 % (0-6); HEMATOCRIT 33.5 % (36.0-47.0); HEMOGLOBIN 11.6 g/dL (12.0-15.5); MEAN CORPUSCULAR HEMOGLOBIN 28.5 pg (27.0-33.4); MEAN CORPUSCULAR HGB CONC 34.5 g/dL (32.0-36.0); MEAN CORPUSCULAR VOLUME 83 fl (80-97); MONOCYTES % (AUTO) 7.9 % (3-13); PLATELET COUNT 155 10^3/uL (150-450); RED BLOOD COUNT 4.06 10^6/uL (3.72-5.28); RED CELL DISTRIBUTION WIDTH 15.8 % (11.5-14.0); SEGMENTED NEUTROPHILS % (AUTO) 79.5 % (42-78); TOTAL CELLS COUNTED % (AUTO) 100 %; WHITE BLOOD COUNT 9.9 10^3/uL (4.0-10.5)
[2018-10-17 06:09] LABS: ANION GAP 7 (5-19); BLOOD UREA NITROGEN 46 mg/dL (7-20); CALCIUM 8.7 mg/dL (8.4-10.2); CARBON DIOXIDE 29 mmol/L (22-30); CHLORIDE 103 mmol/L (98-107); GLUCOSE 231 mg/dL (75-110); POTASSIUM 4.2 mmol/L (3.6-5.0); SODIUM 139.2 mmol/L (137-145)
[2018-10-17] MEDS: LANSOPRAZOLE 30 MG TAB.RAP.DR PO SCH (06:30)
[2018-10-17] MEDS: INSULIN LISPRO 100 UNIT/ML 3 ML VIAL SUBCUT PRN ×2 (08:30→11:46)
[2018-10-17] MEDS: MORPHINE SULFATE 10 MG/ML INJ IV PRN ×2 (08:31→22:43)
[2018-10-17] MEDS: DOCUSATE SODIUM 100 MG CAPSULE PO SCH (10:48)
[2018-10-17] MEDS: LIDOCAINE 5% (700 MG) TRANSDERMAL ADH..PATCH TP SCH (10:48)
[2018-10-17] MEDS: FERROUS SULFATE 325 MG TABLET PO SCH (10:49)
[2018-10-17] MEDS: ASCORBIC ACID 500 MG TABLET PO SCH (10:49)
[2018-10-17] MEDS: FONDAPARINUX SODIUM INJ 2.5 MG/0.5 ML DISP.SYRIN SUBCUT SCH (10:49)
[2018-10-17] MEDS: CHOLECALCIFEROL (D3) 1,000 UNIT TABLET PO SCH (10:50)
[2018-10-17] MEDS: PANTOT AC/MIN OIL/PET HY-PHL OINT 50 GM TOP SCH ×2 (10:57→17:17)
[2018-10-17] MEDS: SPIRONOLACTONE 25 MG TABLET PO SCH ×3 (10:57→22:03)
[2018-10-17] MEDS: HYDROCODONE/ACETAMINOPHEN 5-325 MG TABLET PO PRN ×2 (11:46→23:43)
--- NOTE | 2018-10-17 11:58 | PDOC PROGRESS REPORT ---
Subjective Progress Note for:: 10/17/18 Subjective:: Patient is feeling much better today. She said she is not nauseated too much and was able to eat breakfast. However she started some diarrhea last night until today. She is making a better amount of urine output since yesterday. She does not complain of any problems with urination. Her blood pressures also also better. She has not required IV as needed medications so far. Denies any chest pains no shortness of breath. She has not have any muscle spasms episode for the last 36 hours or more. Reason For Visit: HEART FAILURE Physical Exam Vital Signs: Temp Pulse Resp BP Pulse Ox 98.3 F 90 18 179/63 H 100 10/17/18 00:00 10/17/18 07:00 10/17/18 00:00 10/17/18 00:00 10/17/18 00:00 Intake & Output 10/16/18 10/17/18 10/18/18 06:59 06:59 06:59 Intake Total 1168 844 Output Total 300 1650 Balance 868 -806 Weight 51.3 kg 53.6 kg Exam: General appearance: PRESENT: no acute distress, cooperative, well-developed, well-nourished Head exam: PRESENT: atraumatic, normocephalic Eye exam: PRESENT: conjunctiva pale, PERRLA. ABSENT: scleral icterus Neck exam: ABSENT: JVD Respiratory exam: PRESENT: Diminished breath sounds. ABSENT: crackles, rales, rhonchi, unlabored, wheezes Cardiovascular exam: PRESENT: Regular rate rhythm -+S1, +S2. Grade 2/6 systolic murmur GI/Abdominal exam: PRESENT: normal bowel sounds, soft. ABSENT: guarding, mass, tenderness Extremities exam: ABSENT: No edema Neurological exam: PRESENT: alert, awake, oriented to person, place and time. Skin exam: PRESENT: dry, warm, Cardiovascular exam: PRESENT: +S1, +S2, systolic murmur GI/Abdominal exam: PRESENT: normal bowel sounds, soft. ABSENT: organomegaly, renal bruit, tenderness Results Laboratory Results: 10/17/18 05:10 10/17/18 05:10 10/16/18 10/17/18 10/17/18 16:25 05:10 05:10 WBC 9.9 RBC 4.06 Hgb 11.6 L Hct 33.5 L MCV 83 MCH 28.5 MCHC 34.5 RDW 15.8 H Plt Count 155 Seg Neutrophils % 79.5 H Lymphocytes % 11.0 L Monocytes % 7.9 Eosinophils % 1.3 Basophils % 0.3 Absolute Neutrophils 7.8 Absolute Lymphocytes 1.1 Absolute Monocytes 0.8 Absolute Eosinophils 0.1 Absolute Basophils 0.0 Sodium 139.2 Potassium 4.2 Chloride 103 Carbon Dioxide 29 Anion Gap 7 BUN 46 H Creatinine 1.47 H Est GFR ( Amer) 44 L Est GFR (Non-Af Amer) 37 L Glucose 231 H Calcium 8.7 Urine Color YELLOW Urine Appearance CLOUDY Urine pH 7.0 Ur Specific [place] 1.019 Urine Protein >=500 H Urine Glucose (UA) 150 H Urine Ketones NEGATIVE Urine Blood NEGATIVE Urine Nitrite NEGATIVE Ur Leukocyte Esterase LARGE H Urine WBC (Auto) >182 Urine RBC (Auto) 20 09/28/18 09/29/18 09/29/18 22:55 01:52 01:52 Creatine Kinase 197 H CK-MB (CK-2) 2.27 Troponin I < 0.012 < 0.012 NT-Pro-B Natriuret Pep 4310 H 09/29/18 09/29/18 09/29/18 07:58 07:58 15:00 Creatine Kinase 149 H 120 CK-MB (CK-2) 1.45 Troponin I < 0.012 NT-Pro-B Natriuret Pep 09/29/18 09/30/18 15:00 04:06 Creatine Kinase CK-MB (CK-2) 0.99 Troponin I < 0.012 NT-Pro-B Natriuret Pep 4370 H Impressions: Chest X-Ray 09/28/18 20:26 IMPRESSION: Bilateral pleural effusions. Renal Biopsy CT 10/02/18 00:00 IMPRESSION: CT GUIDED RIGHT KIDNEY CORTICAL BIOPSY. IV CONSCIOUS SEDATION Guidance Needle Placement CT 10/03/18 00:00 IMPRESSION: CT GUIDED RIGHT KIDNEY CORTICAL BIOPSY. IV CONSCIOUS SEDATION Ribs X-Ray 10/08/18 00:00 IMPRESSION: Nondisplaced posterior lateral right seventh rib fracture. Osteopenia. Small right pleural effusion copyright 2010 [employer]- All Rights Reserved Abdomen/Pelvis CT 10/14/18 00:00 IMPRESSION: Large fibroid. No acute findings. Assessment & Plan - Diagnosis (1) Nephrotic range proteinuria Is this a current diagnosis for this admission?: Yes Plan: Preliminary renal biopsy report showed nodular diabetic sclerosis with segmental scarring, severe arteriosclerosis with mild to moderate interstitial fibrosis and tubular atrophy. Final biopsy report still pending. Patient's swelling has almost completely resolved at this point. (2) Acute kidney injury superimposed on chronic kidney disease Is this a current diagnosis for this admission?: Yes Plan: Due to prerenal factors including volume depletion due to poor oral intake as well as nausea and vomiting. Kidney function currently improving and urine output is improved. For today and will continue to hold her diuretics. Tomorrow will resume low dose of Bumex 1 mg daily. Monitor kidney function and electrolytes. I also encourage patient to start eating and drinking fluids a little bit since she is feeling better today. (3) Hypertension Qualifiers: Hypertension type: essential hypertension Qualified Code(s): I10 - Essential (primary) hypertension Is this a current diagnosis for this admission?: Yes Plan: Improved for the last 24 hours without any IV as needed medications. Prior to discharge we need to be able to resume her oral medications to make sure that she is doing well on those so that we know what medication to discharge her with. Encourage patient to start taking her spironolactone and amlodipine today. We will restart her lisinopril 20 mg daily and Bumex 1 mg daily tomorrow morning. She will stay on the clonidine patch and discontinue the oral clonidine. As needed medications with IV labetalol and IV hydralazine still on board. (4) Urinary tract infection Is this a current diagnosis for this admission?: Yes Plan: Urinalysis positive evidence of possible UTI. Obtain urine for culture today and empirically start her on ciprofloxacin 250 mg p.o. every 12 hours. Adjust treatment according to urine culture. (5) Diarrhea Is this a current diagnosis for this admission?: Yes Plan: Check stool for C. difficile. (6) Nausea and vomiting Qualifiers: Vomiting type: bilious vomiting Qualified Code(s): R11.14 - Bilious vomiting Is this a current diagnosis for this admission?: Yes Plan: Secondary to diabetic gastroparesis. Resistant to Phenergan and Zofran unfortunately. Reglan is also ineffective and causing severe adverse reaction. Improved today after so many days. (7) Diabetic gastroparesis Is this a current diagnosis for this admission?: Yes Plan: Unfortunately no effective therapy has been proven at this time. Reglan has been discontinued due to possible acute dystonia or dyskinesia as a reaction to it. (8) Involuntary muscle contractions Is this a current diagnosis for this admission?: Yes Plan: This could be a reaction from Reglan causing possible acute dystonia, dyskinesia and extrapyramidal symptoms. Reglan was discontinued. No episodes for the last 36 hours. Benadryl IV as needed. (9) Chronic kidney disease (CKD), stage III (moderate) Is this a current diagnosis for this admission?: Yes Plan: Per kidney biopsy this is secondary to diabetic nephropathy with nephrotic range proteinuria and contribution of hypertensive nephrosclerosis. I believe the pa bartolome is at her baseline kidney function now. (10) Anemia Qualifiers: Anemia type: iron deficiency Iron deficiency anemia type: inadequate dietary iron intake Qualified Code(s): D50.8 - Other iron deficiency anemias Is this a current diagnosis for this admission?: Yes Plan: Improved. Currently acceptable and does not need any Procrit or ferrous sulfate. (11) Acute on chronic diastolic CHF (congestive heart failure), NYHA class 2 Is this a current diagnosis for this admission?: Yes Plan: Stable and compensated.. (12) Diabetes mellitus type 2 in nonobese Is this a current diagnosis for this admission?: Yes (13) Bilateral pleural effusion Is this a current diagnosis for this admission?: Yes (14) Mitral regurgitation Qualifiers: Cardiac valve disease etiology: nonrheumatic Qualified Code(s): I34.0 - Nonrheumatic mitral (valve) insufficiency Is this a current diagnosis for this admission?: Yes (15) Bilateral lower extremity edema Is this a current diagnosis for this admission?: Yes Plan: Resolved. - Time Time with patient: Greater than 35 minutes
--- NOTE | 2018-10-17 14:02 | PDOC PROGRESS REPORT ---
Subjective Progress Note for:: 10/17/18 Subjective:: I seen patient resting in bed comfortably. She is not in pain or any form of distress. She is eating well and tolerating well. Her vital signs are relatively stable. She is able to produce adequate amount of urine. Her edema has subsided. I offered the patient short-term acute rehab placement but she opted for home health. Dr. Nichols want to follow the patient for the next 48 hours. Reason For Visit: HEART FAILURE Physical Exam Vital Signs: Temp Pulse Resp BP Pulse Ox 98.3 F 90 18 179/63 H 100 10/17/18 00:00 10/17/18 07:00 10/17/18 00:00 10/17/18 00:00 10/17/18 00:00 Intake & Output 10/16/18 10/17/18 10/18/18 06:59 06:59 06:59 Intake Total 1168 844 Output Total 300 1650 Balance 868 -806 Weight 51.3 kg 53.6 kg General appearance: PRESENT: no acute distress, well-developed, well-nourished Head exam: PRESENT: atraumatic, normocephalic Eye exam: PRESENT: conjunctiva pink, EOMI, PERRLA. ABSENT: scleral icterus Ear exam: PRESENT: normal external ear exam Mouth exam: PRESENT: moist, tongue midline Neck exam: ABSENT: carotid bruit, JVD, lymphadenopathy, thyromegaly Respiratory exam: PRESENT: clear to auscultation joshua. ABSENT: rales, rhonchi, wheezes Cardiovascular exam: PRESENT: RRR. ABSENT: diastolic murmur, rubs, systolic murmur Pulses: PRESENT: normal dorsalis pedis pul Vascular exam: PRESENT: normal capillary refill GI/Abdominal exam: PRESENT: normal bowel sounds, soft. ABSENT: distended, guarding, mass, organolmegaly, rebound, tenderness Rectal exam: PRESENT: deferred Extremities exam: PRESENT: full ROM. ABSENT: calf tenderness, clubbing, pedal edema Neurological exam: PRESENT: alert, awake, oriented to person, oriented to place, oriented to time, oriented to situation, CN II-XII grossly intact. ABSENT: motor sensory deficit Psychiatric exam: PRESENT: appropriate affect, normal mood. ABSENT: homicidal ideation, suicidal ideation Skin exam: PRESENT: dry, intact, warm. ABSENT: cyanosis, rash Results Laboratory Results: 10/17/18 05:10 10/17/18 05:10 10/16/18 10/17/18 10/17/18 16:25 05:10 05:10 WBC 9.9 RBC 4.06 Hgb 11.6 L Hct 33.5 L MCV 83 MCH 28.5 MCHC 34.5 RDW 15.8 H Plt Count 155 Seg Neutrophils % 79.5 H Lymphocytes % 11.0 L Monocytes % 7.9 Eosinophils % 1.3 Basophils % 0.3 Absolute Neutrophils 7.8 Absolute Lymphocytes 1.1 Absolute Monocytes 0.8 Absolute Eosinophils 0.1 Absolute Basophils 0.0 Sodium 139.2 Potassium 4.2 Chloride 103 Carbon Dioxide 29 Anion Gap 7 BUN 46 H Creatinine 1.47 H Est GFR ( Amer) 44 L Est GFR (Non-Af Amer) 37 L Glucose 231 H Calcium 8.7 Urine Color YELLOW Urine Appearance CLOUDY Urine pH 7.0 Ur Specific [place] 1.019 Urine Protein >=500 H Urine Glucose (UA) 150 H Urine Ketones NEGATIVE Urine Blood NEGATIVE Urine Nitrite NEGATIVE Ur Leukocyte Esterase LARGE H Urine WBC (Auto) >182 Urine RBC (Auto) 20 09/28/18 09/29/18 09/29/18 22:55 01:52 01:52 Creatine Kinase 197 H CK-MB (CK-2) 2.27 Troponin I < 0.012 < 0.012 NT-Pro-B Natriuret Pep 4310 H 09/29/18 09/29/18 09/29/18 07:58 07:58 15:00 Creatine Kinase 149 H 120 CK-MB (CK-2) 1.45 Troponin I < 0.012 NT-Pro-B Natriuret Pep 09/29/18 09/30/18 15:00 04:06 Creatine Kinase CK-MB (CK-2) 0.99 Troponin I < 0.012 NT-Pro-B Natriuret Pep 4370 H Impressions: Chest X-Ray 09/28/18 20:26 IMPRESSION: Bilateral pleural effusions. Renal Biopsy CT 10/02/18 00:00 IMPRESSION: CT GUIDED RIGHT KIDNEY CORTICAL BIOPSY. IV CONSCIOUS SEDATION Guidance Needle Placement CT 10/03/18 00:00 IMPRESSION: CT GUIDED RIGHT KIDNEY CORTICAL BIOPSY. IV CONSCIOUS SEDATION Ribs X-Ray 10/08/18 00:00 IMPRESSION: Nondisplaced posterior lateral right seventh rib fracture. Osteopenia. Small right pleural effusion copyright 2010 [employer]- All Rights Reserved Abdomen/Pelvis CT 10/14/18 00:00 IMPRESSION: Large fibroid. No acute findings. Assessment & Plan - Diagnosis (1) Acute on chronic diastolic CHF (congestive heart failure), NYHA class 2 Is this a current diagnosis for this admission?: Yes Plan: Due to worsening of her kidney function her Bumex and Zaroxolyn is discontinued by Dr. Nichols. And she is started on normal saline bolus. We will start her on her diuretics as her kidney function improves. (2) Acute kidney injury superimposed on chronic kidney disease Is this a current diagnosis for this admission?: Yes Plan: Her kidney biopsy is positive for diabetic nephropathy. (3) Diabetes mellitus type 2 in nonobese Is this a current diagnosis for this admission?: Yes Plan: Continue current regimen (4) Hypertension Qualifiers: Hypertension type: essential hypertension Qualified Code(s): I10 - Essential (primary) hypertension Is this a current diagnosis for this admission?: Yes Plan: Relatively well controlled
[2018-10-17] MEDS: CIPROFLOXACIN HCL 500 MG TABLET PO SCH ×2 (14:50→22:02)
[2018-10-17] MEDS: PROMETHAZINE HCL INJ 25 MG/1 ML VIAL IV PRN (14:51)
[2018-10-17] MEDS: INSULIN GLARGINE,HUM.REC.ANLOG 300 UNIT/3 ML INSULN.PEN SUBCUT SCH (22:03)
[2018-10-17] MEDS: AMLODIPINE BESYLATE 5 MG TABLET PO SCH (22:03)
[2018-10-17] MEDS: ISOSORBIDE MONONITRATE 30 MG TAB.ER.24H PO SCH (22:03)
[2018-10-17] MEDS: ATORVASTATIN CALCIUM 40 MG TABLET PO SCH (22:03)
[2018-10-18] MEDS: PROMETHAZINE HCL INJ 25 MG/1 ML VIAL IV PRN ×2 (03:18→09:23)
[2018-10-18] MEDS: LANSOPRAZOLE 30 MG TAB.RAP.DR PO SCH (05:52)
[2018-10-18] MEDS: ONDANSETRON 4 MG TAB.RAPDIS PO PRN (05:52)
[2018-10-18 06:21] LABS: ABSOLUTE EOSINOPHILS # (AUTO) 0.2 10^3/uL (0.0-0.6); ABSOLUTE LYMPHOCYTES (AUTO) 0.9 10^3/uL (0.5-4.7); ABSOLUTE MONOCYTES (AUTO) 0.7 10^3/uL (0.1-1.4); ABSOLUTE NEUT (AUTO) 7.2 10^3/uL (1.7-8.2); BASOPHILS % (AUTO) 0.4 % (0-2); EOSINOPHILS % (AUTO) 1.8 % (0-6); HEMATOCRIT 32.4 % (36.0-47.0); HEMOGLOBIN 11.2 g/dL (12.0-15.5); LYMPHOCYTES % (AUTO) 10.4 % (13-45); MEAN CORPUSCULAR HEMOGLOBIN 28.7 pg (27.0-33.4); MEAN CORPUSCULAR HGB CONC 34.7 g/dL (32.0-36.0); MEAN CORPUSCULAR VOLUME 83 fl (80-97); MONOCYTES % (AUTO) 7.9 % (3-13); PLATELET COUNT 145 10^3/uL (150-450); RED BLOOD COUNT 3.91 10^6/uL (3.72-5.28); SEGMENTED NEUTROPHILS % (AUTO) 79.5 % (42-78); TOTAL CELLS COUNTED % (AUTO) 100 %
[2018-10-18 06:35] LABS: ANION GAP 5 (5-19); BLOOD UREA NITROGEN 37 mg/dL (7-20); CALCIUM 8.5 mg/dL (8.4-10.2); CARBON DIOXIDE 28 mmol/L (22-30); CHLORIDE 106 mmol/L (98-107); GLUCOSE 226 mg/dL (75-110); POTASSIUM 4.3 mmol/L (3.6-5.0); SODIUM 139.1 mmol/L (137-145)
--- NOTE | 2018-10-18 08:18 | PDOC PROGRESS REPORT ---
Subjective Progress Note for:: 10/08/18 Subjective:: Patient is sitting on the bed comfortably but she is complaining of right anterior chest pain. States that she feels that he has a rib fracture -states that it might of happened when they did her renal biopsy and they were putting her on the table and she felt that something was twisted and given her history of osteoporosis she broke something. She denies any shortness of breath but admits to pain over the ribs on the right side. She is also today requesting to get real eggs and 2% milk added to her diet. She also wants Glucerna for her diet. Reason For Visit: HEART FAILURE Physical Exam Vital Signs: Temp Pulse Resp BP Pulse Ox 98.3 F 68 18 130/61 H 97 10/08/18 08:06 10/08/18 13:50 10/08/18 11:43 10/08/18 13:50 10/08/18 11:43 Intake & Output 10/07/18 10/08/18 10/09/18 06:59 06:59 06:59 Intake Total 874 980 741 Output Total 2100 2000 1000 Balance -1226 -1020 -259 Weight 132 lb 9.6 oz General appearance: PRESENT: no acute distress Head exam: PRESENT: atraumatic, normocephalic Eye exam: PRESENT: EOMI, PERRLA. ABSENT: scleral icterus Ear exam: PRESENT: normal external ear exam Mouth exam: PRESENT: tongue midline Neck exam: ABSENT: tracheal deviation Respiratory exam: PRESENT: chest wall tenderness - Right anterior chest midclavicular line -focal area tender to palpation over the ninth and 10th rib, clear to auscultation joshua, symmetrical Cardiovascular exam: PRESENT: +S1, +S2 Pulses: PRESENT: +2 pedal pulses bilateral GI/Abdominal exam: PRESENT: normal bowel sounds, soft. ABSENT: tenderness Extremities exam: PRESENT: +1 edema - Minimal edema bilateral lower extremity Neurological exam: PRESENT: alert, awake, oriented to person, oriented to place, oriented to time, oriented to situation, CN II-XII grossly intact Skin exam: PRESENT: dry, warm Results Laboratory Results: 10/07/18 05:53 10/08/18 04:50 10/08/18 04:50 Sodium 139.9 Potassium 3.6 Chloride 107 Carbon Dioxide 28 Anion Gap 5 BUN 22 H Creatinine 1.14 Est GFR ( Amer) > 60 Est GFR (Non-Af Amer) 49 L Glucose 175 H Calcium 8.2 L 09/28/18 09/29/18 09/29/18 22:55 01:52 01:52 Creatine Kinase 197 H CK-MB (CK-2) 2.27 Troponin I < 0.012 < 0.012 NT-Pro-B Natriuret Pep 4310 H 09/29/18 09/29/18 09/29/18 07:58 07:58 15:00 Creatine Kinase 149 H 120 CK-MB (CK-2) 1.45 Troponin I < 0.012 NT-Pro-B Natriuret Pep 09/29/18 09/30/18 15:00 04:06 Creatine Kinase CK-MB (CK-2) 0.99 Troponin I < 0.012 NT-Pro-B Natriuret Pep 4370 H Impressions: Chest X-Ray 09/28/18 20:26 IMPRESSION: Bilateral pleural effusions. Renal Biopsy CT 10/02/18 00:00 IMPRESSION: CT GUIDED RIGHT KIDNEY CORTICAL BIOPSY. IV CONSCIOUS SEDATION Guidance Needle Placement CT 10/03/18 00:00 IMPRESSION: CT GUIDED RIGHT KIDNEY CORTICAL BIOPSY. IV CONSCIOUS SEDATION Assessment & Plan - Diagnosis (1) Acute on chronic diastolic CHF (congestive heart failure), NYHA class 2 Is this a current diagnosis for this admission?: Yes (2) Bilateral lower extremity edema Is this a current diagnosis for this admission?: Yes (3) Chronic kidney disease (CKD), stage III (moderate) Is this a current diagnosis for this admission?: Yes (4) Diabetes mellitus type 2 in nonobese Is this a current diagnosis for this admission?: Yes (5) Gastroesophageal reflux disease Qualifiers: Esophagitis presence: without esophagitis Qualified Code(s): K21.9 - Gastro-esophageal reflux disease without esophagitis Is this a current diagnosis for this admission?: Yes (6) Hypertension Qualifiers: Hypertension type: essential hypertension Qualified Code(s): I10 - Essential (primary) hypertension Is this a current diagnosis for this admission?: Yes - Plan Summary Plan Summary: Acute on chronic diastolic heart failure-she was on IV Bumex and I have switched her to p.o. Bumex 1 mg twice daily. The intention was to prepare her for discharge when ready. CKD- she had renal biopsy done on 10/03/18 and sent for path- no results yet. suspected renal disease complicating her CHF. Nephrology is consulted and i appreciate their input. Awaiting biopsy results. HTN-her blood pressure continues to fluctuate and has been difficult to control. Nephrology has been titrating her medications. She is currently on clonidine, Norvasc, Imdur, lisinopril, bystolic and Aldactone. DM- stable and noted- c/w lantus 10u and SSI Right-sided chest pain-patient is concerned about a fracture -We will get a chest x-ray to rule out fracture. disposition- i spoke with [employer] store planner about her- she lives with her son right now- going through a long divorce.
[2018-10-18] MEDS: PHARMACY COMMUNICATION ORDER MC SCH ×2 (08:47→22:43)
[2018-10-18] MEDS: INSULIN LISPRO 100 UNIT/ML 3 ML VIAL SUBCUT PRN (08:47)
[2018-10-18] MEDS: HYDROCODONE/ACETAMINOPHEN 5-325 MG TABLET PO PRN ×2 (08:51→19:24)
[2018-10-18] MEDS: LIDOCAINE 5% (700 MG) TRANSDERMAL ADH..PATCH TP SCH (09:16)
[2018-10-18] MEDS: DOCUSATE SODIUM 100 MG CAPSULE PO SCH (09:16)
[2018-10-18] MEDS: ASCORBIC ACID 500 MG TABLET PO SCH (09:17)
[2018-10-18] MEDS: SPIRONOLACTONE 25 MG TABLET PO SCH ×2 (09:17→22:39)
[2018-10-18] MEDS: LISINOPRIL 10 MG TABLET PO SCH (09:17)
[2018-10-18] MEDS: BUMETANIDE 1 MG TABLET PO SCH (09:18)
[2018-10-18] MEDS: FONDAPARINUX SODIUM INJ 2.5 MG/0.5 ML DISP.SYRIN SUBCUT SCH (09:18)
[2018-10-18] MEDS: CIPROFLOXACIN HCL 500 MG TABLET PO SCH ×2 (09:18→22:40)
[2018-10-18] MEDS: PANTOT AC/MIN OIL/PET HY-PHL OINT 50 GM TOP SCH ×2 (09:18→17:03)
[2018-10-18] MEDS: CHOLECALCIFEROL (D3) 1,000 UNIT TABLET PO SCH (09:19)
[2018-10-18] MEDS: FERROUS SULFATE 325 MG TABLET PO SCH (11:57)
[2018-10-18] MEDS: MORPHINE SULFATE 10 MG/ML INJ IV PRN ×2 (12:00→22:50)
--- NOTE | 2018-10-18 19:39 | PDOC PROGRESS REPORT ---
Subjective Progress Note for:: 10/18/18 Subjective:: States she is tired of being and wants to go home. She denies any acute complaints at this time. Reason For Visit: HEART FAILURE Physical Exam Vital Signs: Temp Pulse Resp BP Pulse Ox 98.3 F 76 16 139/60 H 99 10/18/18 05:33 10/18/18 14:00 10/18/18 05:33 10/18/18 05:33 10/18/18 05:33 Intake & Output 10/17/18 10/18/18 10/19/18 06:59 06:59 06:59 Intake Total 844 1353 242 Output Total 1650 2300 600 Balance -806 -947 -358 Weight 118 lb 2.684 oz 109 lb 2.061 oz General appearance: PRESENT: no acute distress Head exam: PRESENT: atraumatic, normocephalic Eye exam: PRESENT: EOMI. ABSENT: conjunctival injection, scleral icterus Mouth exam: PRESENT: moist Neck exam: ABSENT: tracheal deviation Respiratory exam: PRESENT: clear to auscultation joshua, symmetrical Cardiovascular exam: PRESENT: +S1, +S2 Results Laboratory Results: 10/18/18 05:30 10/18/18 05:30 10/18/18 10/18/18 05:30 05:30 WBC 9.0 RBC 3.91 Hgb 11.2 L Hct 32.4 L MCV 83 MCH 28.7 MCHC 34.7 RDW 16.0 H Plt Count 145 L Seg Neutrophils % 79.5 H Lymphocytes % 10.4 L Monocytes % 7.9 Eosinophils % 1.8 Basophils % 0.4 Absolute Neutrophils 7.2 Absolute Lymphocytes 0.9 Absolute Monocytes 0.7 Absolute Eosinophils 0.2 Absolute Basophils 0.0 Sodium 139.1 Potassium 4.3 Chloride 106 Carbon Dioxide 28 Anion Gap 5 BUN 37 H Creatinine 1.26 H Est GFR ( Amer) 53 L Est GFR (Non-Af Amer) 44 L Glucose 226 H Calcium 8.5 09/28/18 09/29/18 09/29/18 22:55 01:52 01:52 Creatine Kinase 197 H CK-MB (CK-2) 2.27 Troponin I < 0.012 < 0.012 NT-Pro-B Natriuret Pep 4310 H 09/29/18 09/29/18 09/29/18 07:58 07:58 15:00 Creatine Kinase 149 H 120 CK-MB (CK-2) 1.45 Troponin I < 0.012 NT-Pro-B Natriuret Pep 09/29/18 09/30/18 15:00 04:06 Creatine Kinase CK-MB (CK-2) 0.99 Troponin I < 0.012 NT-Pro-B Natriuret Pep 4370 H Impressions: Chest X-Ray 09/28/18 20:26 IMPRESSION: Bilateral pleural effusions. Renal Biopsy CT 10/02/18 00:00 IMPRESSION: CT GUIDED RIGHT KIDNEY CORTICAL BIOPSY. IV CONSCIOUS SEDATION Guidance Needle Placement CT 10/03/18 00:00 IMPRESSION: CT GUIDED RIGHT KIDNEY CORTICAL BIOPSY. IV CONSCIOUS SEDATION Ribs X-Ray 10/08/18 00:00 IMPRESSION: Nondisplaced posterior lateral right seventh rib fracture. Osteopenia. Small right pleural effusion copyright 2010 [employer]- All Rights Reserved Abdomen/Pelvis CT 10/14/18 00:00 IMPRESSION: Large fibroid. No acute findings. Assessment & Plan - Diagnosis (1) Acute on chronic diastolic CHF (congestive heart failure), NYHA class 2 Is this a current diagnosis for this admission?: Yes Plan: Currently she is on Bumex 1 mg per nephrology. (2) Bilateral lower extremity edema Is this a current diagnosis for this admission?: Yes Plan: Pretty much resolved as she has no edema on the lower extremity except very little trace edema of the pedal (3) Chronic kidney disease (CKD), stage III (moderate) Is this a current diagnosis for this admission?: Yes Plan: Nephrology is on board. Preliminary biopsy of the kidney shows nodular diabetic sclerosis. I appreciate consult from Dr. Nichols. Management per Dr. Nichols at this time. (4) Diabetes mellitus type 2 in nonobese Is this a current diagnosis for this admission?: Yes Plan: Continue with Lantus 12 units at night and sliding scale. (5) Gastroesophageal reflux disease Qualifiers: Esophagitis presence: without esophagitis Qualified Code(s): K21.9 - Gas tro-esophageal reflux disease without esophagitis Is this a current diagnosis for this admission?: Yes (6) Hypertension Qualifiers: Hypertension type: essential hypertension Qualified Code(s): I10 - Essential (primary) hypertension Is this a current diagnosis for this admission?: Yes Plan: Treated with lisinopril, clonidine patch, Norvasc, and hydralazine as needed (7) Urinary tract infection Is this a current diagnosis for this admission?: Yes Plan: Dr. Nichols yesterday felt that she had a UTI and started on 250 mg of Cipro twice daily prophylactically and send urine cultures which is still pending.
--- NOTE | 2018-10-18 20:35 | PDOC PROGRESS REPORT ---
Subjective Progress Note for:: 10/18/18 Subjective:: Patient is doing fine today but she told me that she vomited again last night. She ate very little today but did not have any vomiting. She relates that she has had EGD during last admission and she was put on omeprazole which unfortunately we do not have. She did not think that the Prevacid works as well as the omeprazole. Her blood pressure is improving. She made good amount of urine, about 2300 mL for the last 24 hours. She also tolerated her oral medica tions now. Reports no more cramping. Reason For Visit: HEART FAILURE Physical Exam Vital Signs: Temp Pulse Resp BP Pulse Ox 98.3 F 74 16 139/60 H 99 10/18/18 05:33 10/18/18 19:00 10/18/18 05:33 10/18/18 05:33 10/18/18 05:33 Intake & Output 10/17/18 10/18/18 10/19/18 06:59 06:59 06:59 Intake Total 844 1353 242 Output Total 1650 2300 600 Balance -806 -947 -358 Weight 53.6 kg 49.5 kg Exam: General appearance: PRESENT: no acute distress, cooperative, well-developed, well-nourished Head exam: PRESENT: atraumatic, normocephalic Eye exam: PRESENT: conjunctiva pale, PERRLA. ABSENT: scleral icterus Neck exam: ABSENT: JVD Respiratory exam: PRESENT: Normal breath sounds. ABSENT: crackles, rales, rhonchi, unlabored, wheezes Cardiovascular exam: PRESENT: Regular rate rhythm -+S1, +S2. ABSENT: diastolic murmur, systolic murmur GI/Abdominal exam: PRESENT: normal bowel sounds, soft. ABSENT: guarding, mass, tenderness Extremities exam: ABSENT: No edema Neurological exam: PRESENT: alert, awake, oriented to person, place and time. Skin exam: PRESENT: dry, warm, Cardiovascular exam: PRESENT: +S1, +S2, systolic murmur GI/Abdominal exam: PRESENT: normal bowel sounds, soft. ABSENT: organomegaly, renal bruit, tenderness Results Laboratory Results: 10/18/18 05:30 10/18/18 05:30 10/18/18 10/18/18 05:30 05:30 WBC 9.0 RBC 3.91 Hgb 11.2 L Hct 32.4 L MCV 83 MCH 28.7 MCHC 34.7 RDW 16.0 H Plt Count 145 L Seg Neutrophils % 79.5 H Lymphocytes % 10.4 L Monocytes % 7.9 Eosinophils % 1.8 Basophils % 0.4 Absolute Neutrophils 7.2 Absolute Lymphocytes 0.9 Absolute Monocytes 0.7 Absolute Eosinophils 0.2 Absolute Basophils 0.0 Sodium 139.1 Potassium 4.3 Chloride 106 Carbon Dioxide 28 Anion Gap 5 BUN 37 H Creatinine 1.26 H Est GFR ( Amer) 53 L Est GFR (Non-Af Amer) 44 L Glucose 226 H Calcium 8.5 09/28/18 09/29/18 09/29/18 22:55 01:52 01:52 Creatine Kinase 197 H CK-MB (CK-2) 2.27 Troponin I < 0.012 < 0.012 NT-Pro-B Natriuret Pep 4310 H 09/29/18 09/29/18 09/29/18 07:58 07:58 15:00 Creatine Kinase 149 H 120 CK-MB (CK-2) 1.45 Troponin I < 0.012 NT-Pro-B Natriuret Pep 09/29/18 09/30/18 15:00 04:06 Creatine Kinase CK-MB (CK-2) 0.99 Troponin I < 0.012 NT-Pro-B Natriuret Pep 4370 H Impressions: Chest X-Ray 09/28/18 20:26 IMPRESSION: Bilateral pleural effusions. Renal Biopsy CT 10/02/18 00:00 IMPRESSION: CT GUIDED RIGHT KIDNEY CORTICAL BIOPSY. IV CONSCIOUS SEDATION Guidance Needle Placement CT 10/03/18 00:00 IMPRESSION: CT GUIDED RIGHT KIDNEY CORTICAL BIOPSY. IV CONSCIOUS SEDATION Ribs X-Ray 10/08/18 00:00 IMPRESSION: Nondisplaced posterior lateral right seventh rib fracture. Osteopenia. Small right pleural effusion copyright 2011 [employer]- All Rights Reserved Abdomen/Pelvis CT 10/14/18 00:00 IMPRESSION: Large fibroid. No acute findings. Assessment & Plan - Diagnosis (1) Nephrotic range proteinuria Is this a current diagnosis for this admission?: Yes Plan: Preliminary renal biopsy report showed nodular diabetic sclerosis with segmental scarring, severe arteriosclerosis with mild to moderate interstitial fibrosis and tubular atrophy. Final biopsy report still pending. Patient's swelling has completely resolved at this point. (2) Acute kidney injury superimposed on chronic kidney disease Is this a current diagnosis for this admission?: Yes Plan: Due to prerenal factors including volume depletion due to poor oral intake as well as nausea and vomiting. Kidney function is currently now at her baseline. (3) Hypertension Qualifiers: Hypertension type: essential hypertension Qualified Code(s): I10 - Essential (primary) hypertension Is this a current diagnosis for this admission?: Yes Plan: Slowly improving. Patient able to tolerate her oral medications. I think patient can go home with current blood pressure regimen to include a clonidine patch, amlodipine, lisinopril, spironolactone, and Bumex with current doses. (4) Urinary tract infection Is this a current diagnosis for this admission?: Yes Plan: Urinalysis positive evidence of possible UTI. Obtain urine for culture today and empirically start her on ciprofloxacin 250 mg p.o. every 12 hours. Urine culture still pending today. Depending on the results may continue or discontinue ciprofloxacin. (5) Diarrhea Is this a current diagnosis for this admission?: Yes Plan: Check stool for C. difficile. No samples submitted yet so far. Patient did not report diarrhea today. (6) Nausea and vomiting Qualifiers: Vomiting type: bilious vomiting Qualified Code(s): R11.14 - Bilious vomiting Is this a current diagnosis for this admission?: Yes Plan: Secondary to diabetic gastroparesis. Resistant to Phenergan and Zofran unfortunately. Reglan is also ineffective and causing severe adverse reaction. She had an episode of vomiting last night but none today. Continue Phenergan and Zofran and may need to go home with either of this for as needed use. We will start Pepcid in addition to Prevacid. At home she can resume her omeprazole. (7) Diabetic gastroparesis Is this a current diagnosis for this admission?: Yes Plan: Unfortunately no effective therapy has been proven at this time. Reglan has been discontinued due to possible acute dystonia or dyskinesia as a reaction to it. Discussed with patient that unfortunately there is really no other treatment nor can nor cure for gastroparesis and it might be something that she just had to live with. (8) Involuntary muscle contractions Is this a current diagnosis for this admission?: Yes Plan: This could be a reaction from Reglan causing possible acute dystonia, dyskinesia and extrapyramidal symptoms. Reglan was discontinued. No episodes for the last 36 hours. Benadryl IV as needed. (9) Chronic kidney disease (CKD), stage III (moderate) Is this a current diagnosis for this admission?: Yes Plan: Per kidney biopsy this is secondary to diabetic nephropathy with nephrotic range proteinuria and contribution of hypertensive nephrosclerosis. I believe the patient is at her baseline kidney function now. (10) Anemia Qualifiers: Anemia type: iron deficiency Iron deficiency anemia type: inadequate dietary iron intake Qualified Code(s): D50.8 - Other iron deficiency anemias Is this a current diagnosis for this admission?: Yes Plan: Improved. Currently acceptable and does not need any Procrit or ferrous sulfate. (11) Acute on chronic diastolic CHF (congestive heart failure), NYHA class 2 Is this a current diagnosis for this admission?: Yes Plan: Stable and compensated.. (12) Diabetes mellitus type 2 in nonobese Is this a current diagnosis for this admission?: Yes (13) Bilateral pleural effusion Is this a current diagnosis for this admission?: Yes (14) Mitral regurgitation Qualifiers: Cardiac valve disease etiology: nonrheumatic Qualified Code(s): I34.0 - Nonrheumatic mitral (valve) insufficiency Is this a current diagnosis for this admission?: Yes (15) Bilateral lower extremity edema Is this a current diagnosis for this admission?: Yes Plan: Resolved. Patient will need maintenance medication so she will go home with Bumex 1 mg p.o. daily. - Notes Notes: From nephrology standpoint I think if she will continue to be stable over the weekend I think she can go home. If discharged would like to see her in the office in the next 2-3 weeks with repeat CBC, BMP, and a urine protein to creatinine ratio. - Time Time with patient: 15-25 minutes
[2018-10-18] MEDS: ATORVASTATIN CALCIUM 40 MG TABLET PO SCH (22:39)
[2018-10-18] MEDS: AMLODIPINE BESYLATE 5 MG TABLET PO SCH (22:40)
[2018-10-18] MEDS: FAMOTIDINE 20 MG TABLET PO SCH (22:40)
[2018-10-18] MEDS: ISOSORBIDE MONONITRATE 30 MG TAB.ER.24H PO SCH (22:40)
[2018-10-18] MEDS: INSULIN GLARGINE,HUM.REC.ANLOG 300 UNIT/3 ML INSULN.PEN SUBCUT SCH (22:41)
[2018-10-19] MEDS: MORPHINE SULFATE 10 MG/ML INJ IV PRN ×2 (03:10→18:59)
[2018-10-19] MEDS: PROMETHAZINE HCL INJ 25 MG/1 ML VIAL IV PRN ×3 (03:10→23:52)
[2018-10-19] MEDS: LIDOCAINE 5% (700 MG) TRANSDERMAL ADH..PATCH TP SCH (09:34)
[2018-10-19] MEDS: PANTOT AC/MIN OIL/PET HY-PHL OINT 50 GM TOP SCH ×2 (09:34→17:31)
[2018-10-19] MEDS: DOCUSATE SODIUM 100 MG CAPSULE PO SCH (09:34)
[2018-10-19] MEDS: ASCORBIC ACID 500 MG TABLET PO SCH (09:35)
[2018-10-19] MEDS: BUMETANIDE 1 MG TABLET PO SCH (09:35)
[2018-10-19] MEDS: INSULIN LISPRO 100 UNIT/ML 3 ML VIAL SUBCUT PRN ×2 (09:35→12:27)
[2018-10-19] MEDS: SPIRONOLACTONE 25 MG TABLET PO SCH ×2 (09:35→21:15)
[2018-10-19] MEDS: LISINOPRIL 10 MG TABLET PO SCH (09:35)
[2018-10-19] MEDS: FAMOTIDINE 20 MG TABLET PO SCH ×2 (09:35→21:14)
[2018-10-19] MEDS: FONDAPARINUX SODIUM INJ 2.5 MG/0.5 ML DISP.SYRIN SUBCUT SCH (09:35)
[2018-10-19] MEDS: CHOLECALCIFEROL (D3) 1,000 UNIT TABLET PO SCH (09:35)
[2018-10-19] MEDS: HYDROCODONE/ACETAMINOPHEN 5-325 MG TABLET PO PRN ×2 (09:35→17:33)
[2018-10-19] MEDS: CIPROFLOXACIN HCL 500 MG TABLET PO SCH ×2 (09:35→21:15)
[2018-10-19] MEDS: FERROUS SULFATE 325 MG TABLET PO SCH (11:38)
--- NOTE | 2018-10-19 15:51 | PDOC PROGRESS REPORT ---
Subjective Progress Note for:: 10/19/18 Subjective:: She was laying in her bed sleeping when I went to see her this afternoon. She had no complaints to me this afternoon. We did talk for a few about her current condition and she is sad that she has not been able to go home. She did request one more time for mac & cheese with her meals and she was told that she is unable to order due to her cardiac diet. I am sympathetic for her being here almost 3 weeks and hence I have allowed her to have mac & cheese at least once a day if you would like with her meals. She was very happy with me for allowing her to have that. So I know that it is probably not appropriate with a cardiac condition, I also understand that patient is depressed because she has been in this hospital for over 20 days Reason For Visit: HEART FAILURE Physical Exam Vital Signs: Temp Pulse Resp BP Pulse Ox 97.6 F 72 14 176/69 H 99 10/19/18 12:20 10/19/18 13:52 10/19/18 12:20 10/19/18 12:20 10/19/18 12:20 Intake & Output 10/18/18 10/19/18 10/20/18 06:59 06:59 06:59 Intake Total 1353 715 Output Total 2300 1300 Balance -947 -585 Weight 109 lb 2.061 oz 116 lb 9.992 oz General appearance: PRESENT: no acute distress Head exam: PRESENT: atraumatic, normocephalic Eye exam: PRESENT: EOMI. ABSENT: conjunctival injection, scleral icterus Ear exam: PRESENT: normal external ear exam Mouth exam: PRESENT: tongue midline Neck exam: ABSENT: tracheal deviation Respiratory exam: PRESENT: clear to auscultation joshua, symmetrical Cardiovascular exam: PRESENT: +S1, +S2 Pulses: PRESENT: +2 pedal pulses bilateral GI/Abdominal exam: PRESENT: normal bowel sounds, soft. ABSENT: tenderness Extremities exam: ABSENT: pedal edema Neurological exam: PRESENT: alert, awake, oriented to person, oriented to place, oriented to time, oriented to situation, CN II-XII grossly intact Skin exam: PRESENT: dry, warm Results Laboratory Results: 10/18/18 05:30 10/18/18 05:30 09/28/18 09/29/18 09/29/18 22:55 01:52 01:52 Creatine Kinase 197 H CK-MB (CK-2) 2.27 Troponin I < 0.012 < 0.012 NT-Pro-B Natriuret Pep 4310 H 09/29/18 09/29/18 09/29/18 07:58 07:58 15:00 Creatine Kinase 149 H 120 CK-MB (CK-2) 1.45 Troponin I < 0.012 NT-Pro-B Natriuret Pep 09/29/18 09/30/18 15:00 04:06 Creatine Kinase CK-MB (CK-2) 0.99 Troponin I < 0.012 NT-Pro-B Natriuret Pep 4370 H Impressions: Chest X-Ray 09/28/18 20:26 IMPRESSION: Bilateral pleural effusions. Renal Biopsy CT 10/02/18 00:00 IMPRESSION: CT GUIDED RIGHT KIDNEY CORTICAL BIOPSY. IV CONSCIOUS SEDATION Guidance Needle Placement CT 10/03/18 00:00 IMPRESSION: CT GUIDED RIGHT KIDNEY CORTICAL BIOPSY. IV CONSCIOUS SEDATION Ribs X-Ray 10/08/18 00:00 IMPRESSION: Nondisplaced posterior lateral right seventh rib fracture. Osteopenia. Small right pleural effusion copyright 2011 [employer]- All Rights Reserved Abdomen/Pelvis CT 10/14/18 00:00 IMPRESSION: Large fibroid. No acute findings. Assessment & Plan - Diagnosis (1) Acute on chronic diastolic CHF (congestive heart failure), NYHA class 2 Is this a current diagnosis for this admission?: Yes Plan: Currently she is on Bumex 1 mg per nephrology. (2) Bilateral lower extremity edema Is this a current diagnosis for this admission?: Yes Plan: Pretty much resolved as she has no edema on the lower extremity (3) Chronic kidney disease (CKD), stage III (moderate) Is this a current diagnosis for this admission?: Yes Plan: Nephrology is on board. Preliminary biopsy of the kidney shows nodular diabetic sclerosis. I appreciate consult from Dr. Nichols. Management per Dr. Nichols at this time. (4) Diabetes mellitus type 2 in nonobese Is this a current diagnosis for this admission?: Yes Plan: Continue with Lantus 12 units at night and sliding scale. (5) Gastroesophageal reflux disease Qualifiers: Esophagitis presence: without esophagitis Qualified Code(s): K21.9 - Gastro-esophageal reflux disease without esophagitis Is this a current diagnosis for this admission?: Yes Plan: Stable noted. (6) Hypertension Qualifiers: Hypertension type: essential hypertension Qualified Code(s): I10 - Essential (primary) hypertension Is this a current diagnosis for this admission?: Yes Plan: Treated with lisinopril, clonidine patch, Norvasc, and hydralazine as needed. She is also taking Bumex 1 mg daily. She seems to have trouble with her blood pressure when she stands up as she tells me she gets dizziness sometimes. Tells me that her blood pressure is high one time in low at times. Dr. Nichols has been managing her blood pressure from a nephrology standpoint (7) Urinary tract infection Is this a current diagnosis for this admission?: Yes Plan: Dr. Nichols felt that she has a UTI and started on 250 mg of Cipro twice daily prophylactically and send urine cultures which is still pending.
[2018-10-19] MEDS: ATORVASTATIN CALCIUM 40 MG TABLET PO SCH (21:14)
[2018-10-19] MEDS: AMLODIPINE BESYLATE 5 MG TABLET PO SCH (21:14)
[2018-10-19] MEDS: INSULIN GLARGINE,HUM.REC.ANLOG 300 UNIT/3 ML INSULN.PEN SUBCUT SCH (21:18)
[2018-10-19] MEDS: ISOSORBIDE MONONITRATE 30 MG TAB.ER.24H PO SCH (21:18)
[2018-10-19] MEDS: PHARMACY COMMUNICATION ORDER MC SCH (22:39)
[2018-10-20] MEDS: PROMETHAZINE HCL INJ 25 MG/1 ML VIAL IV PRN ×2 (06:21→15:50)
[2018-10-20] MEDS: INSULIN LISPRO 100 UNIT/ML 3 ML VIAL SUBCUT PRN ×2 (08:33→13:00)
[2018-10-20] MEDS: FONDAPARINUX SODIUM INJ 2.5 MG/0.5 ML DISP.SYRIN SUBCUT SCH (10:30)
[2018-10-20] MEDS: LISINOPRIL 10 MG TABLET PO SCH (10:31)
[2018-10-20] MEDS: FAMOTIDINE 20 MG TABLET PO SCH ×2 (10:32→22:13)
[2018-10-20] MEDS: ASCORBIC ACID 500 MG TABLET PO SCH (10:32)
[2018-10-20] MEDS: SPIRONOLACTONE 25 MG TABLET PO SCH ×2 (10:33→22:13)
[2018-10-20] MEDS: CHOLECALCIFEROL (D3) 1,000 UNIT TABLET PO SCH (10:33)
[2018-10-20] MEDS: DOCUSATE SODIUM 100 MG CAPSULE PO SCH (10:34)
[2018-10-20] MEDS: MORPHINE SULFATE 10 MG/ML INJ IV PRN ×2 (10:34→20:41)
[2018-10-20] MEDS: BUMETANIDE 1 MG TABLET PO SCH (10:35)
[2018-10-20] MEDS: CIPROFLOXACIN HCL 500 MG TABLET PO SCH ×2 (10:36→22:12)
[2018-10-20] MEDS: LIDOCAINE 5% (700 MG) TRANSDERMAL ADH..PATCH TP SCH (10:37)
[2018-10-20] MEDS: PANTOT AC/MIN OIL/PET HY-PHL OINT 50 GM TOP SCH ×2 (10:53→20:45)
[2018-10-20] MEDS: FERROUS SULFATE 325 MG TABLET PO SCH (12:59)
--- NOTE | 2018-10-20 14:23 | PDOC PROGRESS REPORT ---
Subjective Progress Note for:: 10/20/18 Subjective:: saw patient today. nothing to report overnight. today she refused her BP med since her standing SBP was 60. but it was taken immediately upon standing. states she became dizzy from standing Reason For Visit: HEART FAILURE Physical Exam Vital Signs: Temp Pulse Resp BP Pulse Ox 98.6 F 77 16 156/65 H 99 10/20/18 12:00 10/20/18 12:00 10/20/18 12:00 10/20/18 12:00 10/20/18 12:00 Intake & Output 10/19/18 10/20/18 10/21/18 06:59 06:59 06:59 Intake Total 715 921 Output Total 1300 1550 Balance -585 -629 Weight 116 lb 9.992 oz General appearance: PRESENT: no acute distress Head exam: PRESENT: atraumatic, normocephalic Eye exam: PRESENT: EOMI. ABSENT: conjunctival injection, scleral icterus Ear exam: PRESENT: normal external ear exam Mouth exam: PRESENT: moist Neck exam: ABSENT: tracheal deviation Respiratory exam: PRESENT: clear to auscultation joshua, symmetrical Cardiovascular exam: PRESENT: +S1, +S2 GI/Abdominal exam: PRESENT: normal bowel sounds, soft. ABSENT: tenderness Extremities exam: ABSENT: pedal edema Skin exam: PRESENT: dry, warm Results Laboratory Results: 10/18/18 05:30 10/18/18 05:30 10/17/18 14:15 Clean Catch Midstream Urine Culture - Final Mixed Urogenital Neal 09/28/18 09/29/18 09/29/18 22:55 01:52 01:52 Creatine Kinase 197 H CK-MB (CK-2) 2.27 Troponin I < 0.012 < 0.012 NT-Pro-B Natriuret Pep 4310 H 09/29/18 09/29/18 09/29/18 07:58 07:58 15:00 Creatine Kinase 149 H 120 CK-MB (CK-2) 1.45 Troponin I < 0.012 NT-Pro-B Natriuret Pep 09/29/18 09/30/18 15:00 04:06 Creatine Kinase CK-MB (CK-2) 0.99 Troponin I < 0.012 NT-Pro-B Natriuret Pep 4370 H Impressions: Chest X-Ray 09/28/18 20:26 IMPRESSION: Bilateral pleural effusions. Renal Biopsy CT 10/02/18 00:00 IMPRESSION: CT GUIDED RIGHT KIDNEY CORTICAL BIOPSY. IV CONSCIOUS SEDATION Guidance Needle Placement CT 10/03/18 00:00 IMPRESSION: CT GUIDED RIGHT KIDNEY CORTICAL BIOPSY. IV CONSCIOUS SEDATION Ribs X-Ray 10/08/18 00:00 IMPRESSION: Nondisplaced posterior lateral right seventh rib fracture. Osteopenia. Small right pleural effusion copyright 2011 [employer]- All Rights Reserved Abdomen/Pelvis CT 10/14/18 00:00 IMPRESSION: Large fibroid. No acute findings. Assessment & Plan - Diagnosis (1) Acute on chronic diastolic CHF (congestive heart failure), NYHA class 2 Is this a current diagnosis for this admission?: Yes Plan: Currently she is on Bumex 1 mg per nephrology. (2) Bilateral lower extremity edema Is this a current diagnosis for this admission?: Yes Plan: Pretty much resolved as she has no edema on the lower extremity (3) Chronic kidney disease (CKD), stage III (moderate) Is this a current diagnosis for this admission?: Yes Plan: Nephrology is on board. Preliminary biopsy of the kidney shows nodular diabetic sclerosis. I appreciate consult from Dr. Nichols. Management per Dr. Nichols at this time. (4) Diabetes mellitus type 2 in nonobese Is this a current diagnosis for this admission?: Yes Plan: Continue with Lantus 12 units at night and sliding scale. (5) Gastroesophageal reflux disease Qualifiers: Esophagitis presence: without esophagitis Qualified Code(s): K21.9 - Gastro-esophageal reflux disease without esophagitis Is this a current diagnosis for this admission?: Yes (6) Hypertension Qualifiers: Hypertension type: essential hypertension Qualified Code(s): I10 - Essential (primary) hypertension Is this a current diagnosis for this admission?: Yes Plan: Treated with lisinopril, clonidine patch, Norvasc, and hydralazine as needed. She is also taking Bumex 1 mg daily. once again when standing. Tells me that her blood pressure is high one time and low at times. Dr. Nichols has been managing her blood pressure from a nephrology standpoint (7) Urinary tract infection Is this a current diagnosis for this admission?: Yes Plan: Dr. Nichols felt that she has a UTI and started on 250 mg of Cipro twice daily prophylactically and send urine cultures shows >100K fixed neal.
[2018-10-20] MEDS: ATORVASTATIN CALCIUM 40 MG TABLET PO SCH (22:12)
[2018-10-20] MEDS: ISOSORBIDE MONONITRATE 30 MG TAB.ER.24H PO SCH (22:12)
[2018-10-20] MEDS: PHARMACY COMMUNICATION ORDER MC SCH (22:13)
[2018-10-20] MEDS: INSULIN GLARGINE,HUM.REC.ANLOG 300 UNIT/3 ML INSULN.PEN SUBCUT SCH (22:13)
[2018-10-20] MEDS: AMLODIPINE BESYLATE 5 MG TABLET PO SCH (22:13)
[2018-10-20] MEDS: HYDROCODONE/ACETAMINOPHEN 5-325 MG TABLET PO PRN (22:18)
[2018-10-21] MEDS: PROMETHAZINE HCL INJ 25 MG/1 ML VIAL IV PRN ×3 (01:55→16:44)
[2018-10-21] MEDS: MORPHINE SULFATE 10 MG/ML INJ IV PRN ×2 (01:59→09:18)
[2018-10-21 08:10] LABS: ALANINE AMINOTRANSFERASE 27 U/L (9-52); ALBUMIN 2.8 g/dL (3.5-5.0); ALKALINE PHOSPHATASE 93 U/L (38-126); ANION GAP 6 (5-19); ASPARTATE AMINO TRANSFERASE 13 U/L (14-36); BILIRUBIN,DIRECT 0.1 mg/dL (0.0-0.4); BILIRUBIN,TOTAL 0.5 mg/dL (0.2-1.3); BLOOD UREA NITROGEN 30 mg/dL (7-20); CALCIUM 8.6 mg/dL (8.4-10.2); CARBON DIOXIDE 28 mmol/L (22-30); CHLORIDE 105 mmol/L (98-107); GLUCOSE 247 mg/dL (75-110); SODIUM 138.7 mmol/L (137-145); TOTAL PROTEIN 4.9 g/dL (6.3-8.2)
[2018-10-21] MEDS: INSULIN LISPRO 100 UNIT/ML 3 ML VIAL SUBCUT PRN ×2 (08:59→18:35)
[2018-10-21] MEDS: DOCUSATE SODIUM 100 MG CAPSULE PO SCH (09:08)
[2018-10-21] MEDS: LISINOPRIL 10 MG TABLET PO SCH (09:16)
[2018-10-21] MEDS: PANTOT AC/MIN OIL/PET HY-PHL OINT 50 GM TOP SCH ×2 (09:16→17:06)
[2018-10-21] MEDS: BUMETANIDE 1 MG TABLET PO SCH (09:18)
[2018-10-21] MEDS: SPIRONOLACTONE 25 MG TABLET PO SCH ×2 (09:18→21:50)
[2018-10-21] MEDS: ASCORBIC ACID 500 MG TABLET PO SCH (09:18)
[2018-10-21] MEDS: CHOLECALCIFEROL (D3) 1,000 UNIT TABLET PO SCH (09:18)
[2018-10-21] MEDS: FAMOTIDINE 20 MG TABLET PO SCH ×2 (09:18→21:50)
[2018-10-21] MEDS: FONDAPARINUX SODIUM INJ 2.5 MG/0.5 ML DISP.SYRIN SUBCUT SCH (09:18)
[2018-10-21] MEDS: CIPROFLOXACIN HCL 500 MG TABLET PO SCH ×2 (09:18→21:49)
[2018-10-21] MEDS: LIDOCAINE 5% (700 MG) TRANSDERMAL ADH..PATCH TP SCH (09:23)
[2018-10-21] MEDS: FERROUS SULFATE 325 MG TABLET PO SCH (11:27)
--- NOTE | 2018-10-21 16:00 | PDOC PROGRESS REPORT ---
Subjective Progress Note for:: 10/21/18 Reason For Visit: Patient seen today. She continues to have labile hypertension with high in the recumbent position and then she drops severely and on standing history of severe orthostasis when she is symptomatic. She denies any history of chest pain shortness of breath. She denies any history of flushing attacks or palpitations. She denies any history of headache or focal deficits.Labs and medications were reviewed. Also discussed the case with the hospitalist. Physical Exam Vital Signs: Temp Pulse Resp BP Pulse Ox 98.3 F 83 16 122/68 99 10/21/18 12:17 10/21/18 12:17 10/21/18 12:17 10/21/18 12:17 10/21/18 12:17 Intake & Output 10/20/18 10/21/18 10/22/18 06:59 06:59 06:59 Intake Total 921 921 Output Total 1550 2050 Balance -629 -1129 Weight 50.8 kg General appearance: PRESENT: no acute distress Respiratory exam: PRESENT: clear to auscultation joshua. ABSENT: crackles, decreased breath sounds Cardiovascular exam: PRESENT: +S1, +S2, systolic murmur GI/Abdominal exam: PRESENT: normal bowel sounds, soft. ABSENT: organomegaly, renal bruit, tenderness Extremities exam: ABSENT: pedal edema Neurological exam: PRESENT: alert, awake, oriented to person, oriented to place Skin exam: PRESENT: dry. ABSENT: mottled Results Laboratory Results: 10/18/18 05:30 10/21/18 07:43 10/21/18 10/21/18 05:22 07:43 Sodium Cancelled 138.7 Potassium Cancelled 4.0 Chloride Cancelled 105 Carbon Dioxide Cancelled 28 Anion Gap Cancelled 6 BUN Cancelled 30 H Creatinine Cancelled 1.39 H Est GFR ( Amer) Cancelled 47 L Est GFR (Non-Af Amer) Cancelled 39 L Glucose Cancelled 247 H Calcium Cancelled 8.6 Total Bilirubin Cancelled 0.5 AST Cancelled 13 L ALT Cancelled 27 Alkaline Phosphatase Cancelled 93 Total Protein Cancelled 4.9 L Albumin Cancelled 2.8 L 09/28/18 09/29/18 09/29/18 22:55 01:52 01:52 Creatine Kinase 197 H CK-MB (CK-2) 2.27 Troponin I < 0.012 < 0.012 NT-Pro-B Natriuret Pep 4310 H 09/29/18 09/29/18 09/29/18 07:58 07:58 15:00 Creatine Kinase 149 H 120 CK-MB (CK-2) 1.45 Troponin I < 0.012 NT-Pro-B Natriuret Pep 09/29/18 09/30/18 15:00 04:06 Creatine Kinase CK-MB (CK-2) 0.99 Troponin I < 0.012 NT-Pro-B Natriuret Pep 4370 H Impressions: Chest X-Ray 09/28/18 20:26 IMPRESSION: Bilateral pleural effusions. Renal Biopsy CT 10/02/18 00:00 IMPRESSION: CT GUIDED RIGHT KIDNEY CORTICAL BIOPSY. IV CONSCIOUS SEDATION Guidance Needle Placement CT 10/03/18 00:00 IMPRESSION: CT GUIDED RIGHT KIDNEY CORTICAL BIOPSY. IV CONSCIOUS SEDATION Ribs X-Ray 10/08/18 00:00 IMPRESSION: Nondisplaced posterior lateral right seventh rib fracture. Osteopenia. Small right pleural effusion copyright 2011 [employer]- All Rights Reserved Abdomen/Pelvis CT 10/14/18 00:00 IMPRESSION: Large fibroid. No acute findings. Assessment & Plan - Diagnosis (1) Hypertensive urgency Is this a current diagnosis for this admission?: Yes Plan: Blood pressure is very labile.Did not see any secondary workup done.Discussed with hospitalist to get renal Dopplers or an noncontrasted MRA of renal arteries along with a 24 urine collection for appropriate labs including cortisol and metanephrines.Other labs to be ordered includes plasma renin and aldosterone.Discussed with the patient that she has a combination of severe autonomic dysfunction along with some antihypertensive drug-induced orthostasis as well.Recommend blood pressures are very high and then she drops dramatically. Advised the patient to take severe orthostatic precautions as she has high chance of falls or syncope (2) Nephrotic range proteinuria Is this a current diagnosis for this admission?: Yes Plan: Secondary to diabetic nodular sclerosis. Advised tight blood sugar control. (3) Acute kidney injury superimposed on chronic kidney disease Is this a current diagnosis for this admission?: Yes Plan: Currently she is dehydrated. I am going to stop her Bumex and monitor. No evidences of congestive heart failure. (4) Acute on chronic diastolic CHF (congestive heart failure), NYHA class 2 Is this a current diagnosis for this admission?: Yes Plan: Presently compensating. She has heart failure with preserved ejection fraction. She has had good response to diuresis.Currently on the dry side and I am going to hold the Bumex and will monitor. (5) Diabetes mellitus type 2 in nonobese Is this a current diagnosis for this admission?: Yes Plan: Advised compliance with diet and medications. Advised the need for tight diabetic control for obvious reasons. (6) Aortic incompetence Qualifiers: Cardiac valve disease etiology: etiology unspecified Qualified Code(s): I35.1 - Nonrheumatic aortic (valve) insufficiency Plan: Moderate. Status quo. Unsure of etiology.
--- NOTE | 2018-10-21 16:22 | RADIOLOGY REPORT (SQ) ---
EXAM DESCRIPTION: U/S RETROPERITON (RENAL/AORTA) COMPLETED DATE/TIME: 10/21/2018 4:12 pm REASON FOR STUDY: secondary hypertension COMPARISON: A well than some TECHNIQUE: Dynamic and static grayscale images acquired of the kidneys and bladder and recorded on P ACS. Additional selected color Doppler and spectral images recorded. LIMITATIONS: None. FINDINGS: RIGHT KIDNEY: Normal size, 11 cm. Normal echogenicity. No solid or suspicious masses. No h ydronephrosis. No calcifications. LEFT KIDNEY: Normal size, 10.6 cm. Normal echogenicity. No solid or suspicious masses. No hydronephr osis. No calcifications. BLADDER: The bladder itself appears unremarkable. A large uterine fibroid is seen. OTHER FINDINGS: No other significant finding. IMPRESSION: Normal kidneys and bladder. Large uterine fibroid. TECHNICAL DOCUMENTATION: JOB ID: [id number] [employer]- All Rights Reserved Reading location - IP/workstation name: [email or web address]
[2018-10-21] MEDS: HYDROCODONE/ACETAMINOPHEN 5-325 MG TABLET PO PRN (18:35)
--- NOTE | 2018-10-21 19:36 | PDOC PROGRESS REPORT ---
Subjective Progress Note for:: 10/21/18 Subjective:: Patient with no complaints today. She is laying on the bed comfortably. Denies chest pain, shortness of breath, abdominal pain, nausea/vomiting or diarrhea. She states she still has dizziness when she stands up. Reason For Visit: HEART FAILURE Physical Exam Vital Signs: Temp Pulse Resp BP Pulse Ox 98.3 F 79 16 90/62 L 99 10/21/18 15:11 10/21/18 15:11 10/21/18 15:11 10/21/18 15:11 10/21/18 15:11 Intake & Output 10/20/18 10/21/18 10/22/18 06:59 06:59 06:59 Intake Total 921 921 828 Output Total 1550 2050 900 Balance -629 -1129 -72 Weight 111 lb 15.917 oz General appearance: PRESENT: no acute distress Head exam: PRESENT: atraumatic, normocephalic Eye exam: PRESENT: EOMI. ABSENT: conjunctival injection, scleral icterus Ear exam: PRESENT: normal external ear exam Mouth exam: PRESENT: tongue midline Neck exam: ABSENT: tracheal deviation Respiratory exam: PRESENT: clear to auscultation joshua, symmetrical Cardiovascular exam: PRESENT: +S1, +S2 Pulses: PRESENT: +2 pedal pulses bilateral GI/Abdominal exam: PRESENT: soft. ABSENT: normal bowel sounds, tenderness Extremities exam: ABSENT: pedal edema Neurological exam: PRESENT: alert, awake, oriented to person, oriented to place, oriented to time, oriented to situation, CN II-XII grossly intact Skin exam: PRESENT: dry, warm Results Laboratory Results: 10/18/18 05:30 10/21/18 07:43 10/21/18 10/21/18 05:22 07:43 Sodium Cancelled 138.7 Potassium Cancelled 4.0 Chloride Cancelled 105 Carbon Dioxide Cancelled 28 Anion Gap Cancelled 6 BUN Cancelled 30 H Creatinine Cancelled 1.39 H Est GFR ( Amer) Cancelled 47 L Est GFR (Non-Af Amer) Cancelled 39 L Glucose Cancelled 247 H Calcium Cancelled 8.6 Total Bilirubin Cancelled 0.5 AST Cancelled 13 L ALT Cancelled 27 Alkaline Phosphatase Cancelled 93 Total Protein Cancelled 4.9 L Albumin Cancelled 2.8 L 09/28/18 09/29/18 09/29/18 22:55 01:52 01:52 Creatine Kinase 197 H CK-MB (CK-2) 2.27 Troponin I < 0.012 < 0.012 NT-Pro-B Natriuret Pep 4310 H 09/29/18 09/29/18 09/29/18 07:58 07:58 15:00 Creatine Kinase 149 H 120 CK-MB (CK-2) 1.45 Troponin I < 0.012 NT-Pro-B Natriuret Pep 09/29/18 09/30/18 15:00 04:06 Creatine Kinase CK-MB (CK-2) 0.99 Troponin I < 0.012 NT-Pro-B Natriuret Pep 4370 H Impressions: Chest X-Ray 09/28/18 20:26 IMPRESSION: Bilateral pleural effusions. Renal Biopsy CT 10/02/18 00:00 IMPRESSION: CT GUIDED RIGHT KIDNEY CORTICAL BIOPSY. IV CONSCIOUS SEDATION Guidance Needle Placement CT 10/03/18 00:00 IMPRESSION: CT GUIDED RIGHT KIDNEY CORTICAL BIOPSY. IV CONSCIOUS SEDATION Ribs X-Ray 10/08/18 00:00 IMPRESSION: Nondisplaced posterior lateral right seventh rib fracture. Osteopenia. Small right pleural effusion copyright 2011 [employer]- All Rights Reserved Abdomen/Pelvis CT 10/14/18 00:00 IMPRESSION: Large fibroid. No acute findings. Renal Ultrasound 10/21/18 00:00 IMPRESSION: Normal kidneys and bladder. Large uterine fibroid. Assessment & Plan - Diagnosis (1) Acute on chronic diastolic CHF (congestive heart failure), NYHA class 2 Is this a current diagnosis for this admission?: Yes (2) Bilateral lower extremity edema Is this a current diagnosis for this admission?: Yes (3) Chronic kidney disease (CKD), stage III (moderate) Is this a current diagnosis for this admission?: Yes (4) Diabetes mellitus type 2 in nonobese Is this a current diagnosis for this admission?: Yes (5) Gastroesophageal reflux disease Qualifiers: Esophagitis presence: without esophagitis Qualified Code(s): K21.9 - Gastro-esophageal reflux disease without esophagitis Is this a current diagnosis for this admission?: Yes (6) Hypertension Qualifiers: Hypertension type: essential hypertension Qualified Code(s): I10 - Essential (primary) hypertension Is this a current diagnosis for this admission?: Yes (7) Urinary tract infection Is this a current diagnosis for this admission?: Yes - Time Time Spent with patient: 35 or more minutes - Plan Summary Plan Summary: Today had a long conversation with the face worker regarding her care. It seems like that her hypertension has not been resolved. I spoke to nephrology about possible transfer to higher level of care for second opinion regarding her condition at this time. He agreed so I have called [facility] and spoke with hospitalist there who spoke with the face worker but unfortunately at this time given her status they do not feel that she needs a transfer. But with face worker again and I have decided to work her up for secondary hypertension which I did not see in the chart. I have got a ultrasound of the kidneys, I will try to get renal arteries Dopplers to rule out stenosis. I have also sent off for morning labs with cortisol and metanephrines. I have advised patient to be cautious when she stands up as she gets dizzy. Asked patient to ask for help if she needs to use get out of bed
[2018-10-21] MEDS: ISOSORBIDE MONONITRATE 30 MG TAB.ER.24H PO SCH (21:49)
[2018-10-21] MEDS: ATORVASTATIN CALCIUM 40 MG TABLET PO SCH (21:49)
[2018-10-21] MEDS: PHARMACY COMMUNICATION ORDER MC SCH (21:50)
[2018-10-21] MEDS: AMLODIPINE BESYLATE 5 MG TABLET PO SCH (21:50)
[2018-10-21] MEDS: CLONIDINE 0.2 MG/24 HR PATCH.TDWK TD SCH (21:55)
[2018-10-21] MEDS: INSULIN GLARGINE,HUM.REC.ANLOG 300 UNIT/3 ML INSULN.PEN SUBCUT SCH (23:28)
[2018-10-22] MEDS: PROMETHAZINE HCL INJ 25 MG/1 ML VIAL IV PRN ×2 (05:00→15:33)
[2018-10-22] MEDS: HYDROCODONE/ACETAMINOPHEN 5-325 MG TABLET PO PRN ×2 (09:23→18:43)
[2018-10-22] MEDS: LIDOCAINE 5% (700 MG) TRANSDERMAL ADH..PATCH TP SCH (09:27)
[2018-10-22] MEDS: LISINOPRIL 10 MG TABLET PO SCH (09:33)
[2018-10-22] MEDS: CHOLECALCIFEROL (D3) 1,000 UNIT TABLET PO SCH (09:35)
[2018-10-22] MEDS: FAMOTIDINE 20 MG TABLET PO SCH ×2 (09:35→21:46)
[2018-10-22] MEDS: DOCUSATE SODIUM 100 MG CAPSULE PO SCH (09:35)
[2018-10-22] MEDS: SPIRONOLACTONE 25 MG TABLET PO SCH ×2 (09:35→21:46)
[2018-10-22] MEDS: FONDAPARINUX SODIUM INJ 2.5 MG/0.5 ML DISP.SYRIN SUBCUT SCH (09:35)
[2018-10-22] MEDS: ASCORBIC ACID 500 MG TABLET PO SCH (09:35)
[2018-10-22] MEDS: CIPROFLOXACIN HCL 500 MG TABLET PO SCH ×2 (09:35→21:47)
[2018-10-22] MEDS: PANTOT AC/MIN OIL/PET HY-PHL OINT 50 GM TOP SCH ×2 (09:40→17:15)
[2018-10-22] MEDS: FERROUS SULFATE 325 MG TABLET PO SCH (11:20)
[2018-10-22] MEDS: INSULIN LISPRO 100 UNIT/ML 3 ML VIAL SUBCUT PRN ×2 (12:40→18:36)
[2018-10-22] MEDS: MORPHINE SULFATE 10 MG/ML INJ IV PRN (12:40)
--- NOTE | 2018-10-22 16:24 | PDOC PROGRESS REPORT ---
Subjective Progress Note for:: 10/22/18 Subjective:: I saw the patient at bedside this morning. She was laying down. She was not in distress. I discussed about the fact that you could rejected the transfer since they have nothing more to offer at this time. I did discuss that we are going to try and work her up for secondary reason for hypertension besides her diabetic renal disease. She understands. She still continues to have dizziness when she stands up and her blood pressure continues to be elevated when laying and low when she is standing. She denies any acute complaints-denies chest pain, shortness of breath, abdominal pain, nausea/vomiting or diarrhea. Reason For Visit: HEART FAILURE Physical Exam Vital Signs: Temp Pulse Resp BP Pulse Ox 98.5 F 79 17 97/52 L 100 10/22/18 12:00 10/22/18 12:00 10/22/18 12:00 10/22/18 12:00 10/22/18 12:00 Intake & Output 10/21/18 10/22/18 10/23/18 06:59 06:59 06:59 Intake Total 921 1228 Output Total 2050 1600 Balance -1129 -372 Weight 111 lb 15.917 oz 108 lb 14.534 oz General appearance: PRESENT: no acute distress, other - Appears frail and weak today. Head exam: PRESENT: atraumatic, normocephalic Eye exam: PRESENT: EOMI. ABSENT: conjunctival injection, scleral icterus Ear exam: PRESENT: normal external ear exam Mouth exam: PRESENT: moist, tongue midline Neck exam: ABSENT: tracheal deviation Respiratory exam: PRESENT: clear to auscultation joshua, symmetrical Cardiovascular exam: PRESENT: +S1, +S2 GI/Abdominal exam: PRESENT: normal bowel sounds, soft. ABSENT: tenderness Extremities exam: ABSENT: pedal edema Neurological exam: PRESENT: alert, awake, oriented to person, oriented to place, oriented to time, oriented to situation, CN II-XII grossly intact Skin exam: PRESENT: dry, warm Results Laboratory Results: 10/18/18 05:30 10/21/18 07:43 10/22/18 05:06 Ur Free Cortisol 24 Hr Cancelled U Metanephrines 24 Hr Cancelled U Normetanephrine 24h Cancelled 09/28/18 09/29/18 09/29/18 22:55 01:52 01:52 Creatine Kinase 197 H CK-MB (CK-2) 2.27 Troponin I < 0.012 < 0.012 NT-Pro-B Natriuret Pep 4310 H 09/29/18 09/29/18 09/29/18 07:58 07:58 15:00 Creatine Kinase 149 H 120 CK-MB (CK-2) 1.45 Troponin I < 0.012 NT-Pro-B Natriuret Pep 09/29/18 09/30/18 15:00 04:06 Creatine Kinase CK-MB (CK-2) 0.99 Troponin I < 0.012 NT-Pro-B Natriuret Pep 4370 H Impressions: Chest X-Ray 09/28/18 20:26 IMPRESSION: Bilateral pleural effusions. Renal Biopsy CT 10/02/18 00:00 IMPRESSION: CT GUIDED RIGHT KIDNEY CORTICAL BIOPSY. IV CONSCIOUS SEDATION Guidance Needle Placement CT 10/03/18 00:00 IMPRESSION: CT GUIDED RIGHT KIDNEY CORTICAL BIOPSY. IV CONSCIOUS SEDATION Ribs X-Ray 10/08/18 00:00 IMPRESSION: Nondisplaced posterior lateral right seventh rib fracture. Osteopenia. Small right pleural effusion copyright 2011 [employer]- All Rights Reserved Abdomen/Pelvis CT 10/14/18 00:00 IMPRESSION: Large fibroid. No acute findings. Renal Ultrasound 10/21/18 00:00 IMPRESSION: Normal kidneys and bladder. Large uterine fibroid. Assessment & Plan - Diagnosis (1) Acute on chronic diastolic CHF (congestive heart failure), NYHA class 2 Is this a current diagnosis for this admission?: Yes Plan: Currently she is on Bumex 1 mg per nephrology. (2) Bilateral lower extremity edema Is this a current diagnosis for this admission?: Yes Plan: Pretty much resolved as she has no edema on the lower extremity (3) Chronic kidney disease (CKD), stage III (moderate) Is this a current diagnosis for this admission?: Yes Plan: Nephrology is on board. 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 I appreciate consult from nephrology. (4) Diabetes mellitus type 2 in nonobese Is this a current diagnosis for this admission?: Yes Plan: Continue with Lantus 12 units at night and sliding scale. (5) Gastroesophageal reflux disease Qualifiers: Esophagitis presence: without esophagitis Qualified Code(s): K21.9 - Gastro-esophageal reflux disease without esophagitis Is this a current diagnosis for this admission?: Yes Plan: Stable noted. (6) Hypertension Qualifiers: Hypertension type: essential hypertension Qualified Code(s): I10 - Essential (primary) hypertension Is this a current diagnosis for this admission?: Yes Plan: Treated with lisinopril, clonidine patch, Norvasc, and hydralazine as needed. She is also taking Bumex 1 mg daily. She continues to have blood pressure that is uncontrolled laying down and hypotension when she is standing. At this point I try to talk to [facility] about transfer but they had denied it. I have spoken with nephrology about workup for secondary hypertension and I do not see any workup in her chart. I ordered some labs including cortisol, metanephrines and also an MRA to check for renal artery stenosis. I will follow up with labs and imaging studies will be available. (7) Urinary tract infection Is this a current diagnosis for this admission?: Yes Plan: Nephrology felt that she has a UTI and started on 250 mg of Cipro twice daily prophylactically which she has completed and send urine cultures shows >100K fixed neal.
--- NOTE | 2018-10-22 19:21 | RADIOLOGY REPORT (SQ) ---
EXAM DESCRIPTION: MRA ABDOMEN WITHOUT COMPLETED DATE/TIME: 10/22/2018 7:01 pm REASON FOR STUDY: r/o renal artery stenosis COMPARISON: None. TECHNIQUE: Coronal and Axial imaging with T1 and T2 weighting through the kidneys. 3-D MIPs performe d at the work station. CONTRAST TYPE AND DOSE: None RENAL FUNCTION: Not indicated. LIMITATIONS: None. FINDINGS: RIGHT RENAL ARTERY: A single renal artery. Normal without evidence for stenosis. LEFT RENAL ARTERY: Single renal artery. 1 cm segment proximal stenosis from the large with poststeno tic dilatation. Stenosis is greater than 50%. AORTA, SMA, CELIAC AXIS AND ILIAC ARTERIES: No significant finding or stenosis. OTHER: No other significant finding. IMPRESSION: 1 cm segment stenosis greater than 50% from the origin of theleft renal artery. TECHNICAL DOCUMENTATION: JOB ID: [id number] [employer]- All Rights Reserved Reading location - IP/workstation name: [email or web address]
[2018-10-22] MEDS: AMLODIPINE BESYLATE 5 MG TABLET PO SCH (21:46)
[2018-10-22] MEDS: ISOSORBIDE MONONITRATE 30 MG TAB.ER.24H PO SCH (21:47)
[2018-10-22] MEDS: INSULIN GLARGINE,HUM.REC.ANLOG 300 UNIT/3 ML INSULN.PEN SUBCUT SCH (21:47)
[2018-10-22] MEDS: ATORVASTATIN CALCIUM 40 MG TABLET PO SCH (21:47)
[2018-10-22] MEDS: PHARMACY COMMUNICATION ORDER MC SCH (21:49)
[2018-10-23] MEDS: PROMETHAZINE HCL INJ 25 MG/1 ML VIAL IV PRN ×2 (03:07→13:24)
[2018-10-23] MEDS: MORPHINE SULFATE 10 MG/ML INJ IV PRN ×3 (08:52→21:17)
[2018-10-23] MEDS: FONDAPARINUX SODIUM INJ 2.5 MG/0.5 ML DISP.SYRIN SUBCUT SCH (10:20)
[2018-10-23] MEDS: DOCUSATE SODIUM 100 MG CAPSULE PO SCH (10:20)
[2018-10-23] MEDS: SPIRONOLACTONE 25 MG TABLET PO SCH (10:20)
[2018-10-23] MEDS: CIPROFLOXACIN HCL 500 MG TABLET PO SCH ×2 (10:20→21:17)
[2018-10-23] MEDS: ASCORBIC ACID 500 MG TABLET PO SCH (10:21)
[2018-10-23] MEDS: CHOLECALCIFEROL (D3) 1,000 UNIT TABLET PO SCH (10:21)
[2018-10-23] MEDS: PANTOT AC/MIN OIL/PET HY-PHL OINT 50 GM TOP SCH ×2 (10:27→17:02)
[2018-10-23] MEDS: LIDOCAINE 5% (700 MG) TRANSDERMAL ADH..PATCH TP SCH (10:27)
[2018-10-23] MEDS: FAMOTIDINE 20 MG TABLET PO SCH ×2 (10:27→21:18)
[2018-10-23] MEDS: LISINOPRIL 10 MG TABLET PO SCH (10:28)
--- NOTE | 2018-10-23 11:44 | PDOC PROGRESS REPORT ---
Subjective Progress Note for:: 10/23/18 Reason For Visit: Patient seen this morning. She still continues to have orthostasis. She denies any history of severe headaches, chest pain or shortness of breath. No history of any skin flushing or palpitations. Labs and medications were reviewed with the patient. Her MRA of the renal arteries shows once a centimeter of greater than 50% stenosis of the left renal artery.Other labs for secondary hypertension workup is pending but for her a.m. cortisol which came back high at 25. Physical Exam Vital Signs: Temp Pulse Resp BP Pulse Ox 98.4 F 80 16 147/61 H 100 10/23/18 08:06 10/23/18 08:06 10/23/18 08:06 10/23/18 08:06 10/23/18 08:06 Intake & Output 10/22/18 10/23/18 10/24/18 06:59 06:59 06:59 Intake Total 1228 1116 Output Total 1600 840 Balance -372 276 Weight 49.4 kg 53 kg Respiratory exam: PRESENT: clear to auscultation joshua. ABSENT: crackles Cardiovascular exam: PRESENT: +S1, +S2, systolic murmur GI/Abdominal exam: PRESENT: normal bowel sounds, soft. ABSENT: organomegaly, renal bruit, tenderness Extremities exam: ABSENT: pedal edema Neurological exam: PRESENT: alert, awake, oriented to person, oriented to place Psychiatric exam: PRESENT: appropriate affect Results Laboratory Results: 10/18/18 05:30 10/21/18 07:43 09/28/18 09/29/18 09/29/18 22:55 01:52 01:52 Creatine Kinase 197 H CK-MB (CK-2) 2.27 Troponin I < 0.012 < 0.012 NT-Pro-B Natriuret Pep 4310 H 09/29/18 09/29/18 09/29/18 07:58 07:58 15:00 Creatine Kinase 149 H 120 CK-MB (CK-2) 1.45 Troponin I < 0.012 NT-Pro-B Natriuret Pep 09/29/18 09/30/18 15:00 04:06 Creatine Kinase CK-MB (CK-2) 0.99 Troponin I < 0.012 NT-Pro-B Natriuret Pep 4370 H Impressions: Chest X-Ray 09/28/18 20:26 IMPRESSION: Bilateral pleural effusions. Renal Biopsy CT 10/02/18 00:00 IMPRESSION: CT GUIDED RIGHT KIDNEY CORTICAL BIOPSY. IV CONSCIOUS SEDATION Guidance Needle Placement CT 10/03/18 00:00 IMPRESSION: CT GUIDED RIGHT KIDNEY CORTICAL BIOPSY. IV CONSCIOUS SEDATION Ribs X-Ray 10/08/18 00:00 IMPRESSION: Nondisplaced posterior lateral right seventh rib fracture. Osteopenia. Small right pleural effusion copyright 2010 [employer]- All Rights Reserved Abdomen/Pelvis CT 10/14/18 00:00 IMPRESSION: Large fibroid. No acute findings. Renal Ultrasound 10/21/18 00:00 IMPRESSION: Normal kidneys and bladder. Large uterine fibroid. Abdomen MRI with MRA 10/22/18 00:00 IMPRESSION: 1 cm segment stenosis greater than 50% from the origin of theleft renal artery. Assessment & Plan - Diagnosis (1) Hypertensive urgency Is this a current diagnosis for this admission?: Yes Plan: Blood pressure is very labile.Now that the MRA has come back with 1 cm long greater than 50% left renal artery stenosis at the origin , she needs to be worked up and confirmed and if positive, needs therapeutic intervention in a center where it can be done. Discussed with Dr. Canales today to discuss with inte rventional radiologist at a tertiary care center and arrange for CO2 angiogram and possible interventions. Meanwhile wait for the other workup for secondary hypertension. Also did discuss that the hospitalist could review with the radiologist to see if there was any evidences of adrenal tumors on the MRA done for the renal artery and if not maybe we could still go ahead and ask for an MRI of the adrenal glands without contrast. Advised the patient to take severe orthostatic precautions as she has high chance of falls or syncope with complications. (2) Nephrotic range proteinuria Is this a current diagnosis for this admission?: Yes Plan: Secondary to diabetic nodular sclerosis. Advised tight blood sugar control.She is on ASH inhibitor. (3) Acute kidney injury superimposed on chronic kidney disease Is this a current diagnosis for this admission?: Yes Plan: Currently she is dehydrated. I have stopped her Bumex and I will cut her Spironolactone to just once a day. No evidences of congestive heart failure. Please titrate diuretics accordingly. (4) Acute on chronic diastolic CHF (congestive heart failure), NYHA class 2 Is this a current diagnosis for this admission?: Yes Plan: Presently compensating. She has heart failure with preserved ejection fraction. She has had good response to diuresis.I have held her Bumex and I am going to cut down the spironolactone as she is clinically on the dry side now. Will monitor. Please titrate diuretics accordingly. (5) Diabetes mellitus type 2 in nonobese Is this a current diagnosis for this admission?: Yes Plan: Advised compliance with diet and medications. Advised the need for tight diabetic control for obvious reasons. (6) Aortic incompetence Qualifiers: Cardiac valve disease etiology: etiology unspecified Qualified Code(s): I35.1 - Nonrheumatic aortic (valve) insufficiency Plan: Moderate. Status quo. Unsure of etiology.
[2018-10-23] MEDS: INSULIN LISPRO 100 UNIT/ML 3 ML VIAL SUBCUT PRN (11:48)
[2018-10-23] MEDS: FERROUS SULFATE 325 MG TABLET PO SCH (11:48)
[2018-10-23] MEDS: HYDROCODONE/ACETAMINOPHEN 5-325 MG TABLET PO PRN (11:53)
--- NOTE | 2018-10-23 17:04 | PDOC PROGRESS REPORT ---
Subjective Progress Note for:: 10/23/18 Subjective:: Spoke to patient today about the fact that [facility] declined transfer request. I also told her that we will go ahead and talk to nephrology and discuss about her MRI abdomen results regarding her renal artery stenosis study. Today she has no other complaints to me besides the usual of being dizzy when she stands up. Today she also requested that she take a shower because she has not had one due to worry of falling. I have counseled her on falls and I have asked her if he would take a shower with sitting on a chair and with the help of a nurse to get to the bathroom. I have asked her to have asked for help if she goes to get around the bathroom. Although I am reluctant to allow her to shower I understand that she has been in this hospital for over 3 weeks and this is making her feel miserable and without a shower she is even more depressed and sad. She understands that she can fall from being lightheaded and dizzy and she accepts these risks. Reason For Visit: HEART FAILURE Physical Exam Vital Signs: Temp Pulse Resp BP Pulse Ox 98.6 F 80 16 175/73 H 100 10/23/18 11:44 10/23/18 11:44 10/23/18 11:44 10/23/18 11:44 10/23/18 11:44 Intake & Output 10/22/18 10/23/18 10/24/18 06:59 06:59 06:59 Intake Total 1228 1116 Output Total 1600 840 Balance -372 276 Weight 108 lb 14.534 oz 116 lb 13.52 oz General appearance: PRESENT: no acute distress Head exam: PRESENT: atraumatic, normocephalic Eye exam: PRESENT: EOMI. ABSENT: conjunctival injection, scleral icterus Ear exam: PRESENT: normal external ear exam Mouth exam: PRESENT: moist, tongue midline Neck exam: ABSENT: tracheal deviation Respiratory exam: PRESENT: clear to auscultation joshua, symmetrical Cardiovascular exam: PRESENT: +S1, +S2 Pulses: PRESENT: +2 pedal pulses bilateral GI/Abdominal exam: PRESENT: normal bowel sounds, soft. ABSENT: tenderness Extremities exam: ABSENT: pedal edema Neurological exam: PRESENT: alert, awake, oriented to person, oriented to place, oriented to time, oriented to situation, CN II-XII grossly intact Skin exam: PRESENT: dry, warm Results Laboratory Results: 10/18/18 05:30 10/21/18 07:43 09/28/18 09/29/18 09/29/18 22:55 01:52 01:52 Creatine Kinase 197 H CK-MB (CK-2) 2.27 Troponin I < 0.012 < 0.012 NT-Pro-B Natriuret Pep 4310 H 09/29/18 09/29/18 09/29/18 07:58 07:58 15:00 Creatine Kinase 149 H 120 CK-MB (CK-2) 1.45 Troponin I < 0.012 NT-Pro-B Natriuret Pep 09/29/18 09/30/18 15:00 04:06 Creatine Kinase CK-MB (CK-2) 0.99 Troponin I < 0.012 NT-Pro-B Natriuret Pep 4370 H Impressions: Chest X-Ray 09/28/18 20:26 IMPRESSION: Bilateral pleural effusions. Renal Biopsy CT 10/02/18 00:00 IMPRESSION: CT GUIDED RIGHT KIDNEY CORTICAL BIOPSY. IV CONSCIOUS SEDATION Guidance Needle Placement CT 10/03/18 00:00 IMPRESSION: CT GUIDED RIGHT KIDNEY CORTICAL BIOPSY. IV CONSCIOUS SEDATION Ribs X-Ray 10/08/18 00:00 IMPRESSION: Nondisplaced posterior lateral right seventh rib fracture. Osteopenia. Small right pleural effusion copyright 2011 [employer]- All Rights Reserved Abdomen/Pelvis CT 10/14/18 00:00 IMPRESSION: Large fibroid. No acute findings. Renal Ultrasound 10/21/18 00:00 IMPRESSION: Normal kidneys and bladder. Large uterine fibroid. Abdomen MRI with MRA 10/22/18 00:00 IMPRESSION: 1 cm segment stenosis greater than 50% from the origin of theleft renal artery. Assessment & Plan - Diagnosis (1) Acute on chronic diastolic CHF (congestive heart failure), NYHA class 2 Is this a current diagnosis for this admission?: Yes Plan: Her Bumex has been held by nephrology today. Echocardiogram was done on 05/2018 and showed preserved EF with grade 2/4 diastolic heart failure. (2) Bilateral lower extremity edema Is this a current diagnosis for this admission?: Yes Plan: Resolved, will continue to monitor, her Bumex has been held today by nephrology. May need to restart tomorrow. Likely secondary to heart failure. (3) Chronic kidney disease (CKD), stage III (moderate) Is this a current diagnosis for this admission?: Yes Plan: Nephrology is on board. 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 I appreciate consult from nephrology. (4) Diabetes mellitus type 2 in nonobese Is this a current diagnosis for this admission?: Yes Plan: Continue with Lantus 12 units at night and sliding scale. (5) Gastroesophageal reflux disease Qualifiers: Esophagitis presence: without esophagitis Qualified Code(s): K21.9 - Gastro-esophageal reflux disease without esophagitis Is this a current diagnosis for this admission?: Yes Plan: Stable noted. (6) Hypertension Qualifiers: Hypertension type: essential hypertension Qualified Code(s): I10 - Essential (primary) hypertension Is this a current diagnosis for this admission?: Yes Plan: Treated with lisinopril, clonidine patch, Norvasc, and hydralazine as needed. She is also taking Bumex 1 mg daily. She continues to have blood pressure that is uncontrolled laying down and hypotension when she is standing. Please see discussion for renal artery stenosis (7) Urinary tract infection Is this a current diagnosis for this admission?: Yes Plan: Nephrology felt that she has a UTI and started on 250 mg of Cipro twice daily prophylactically which she has completed and sent urine cultures showed >100K fixed neal. (8) Renal artery stenosis in 1 of 2 vessels Is this a current diagnosis for this admission?: Yes Plan: Today I reviewed her MRI/MRA of the abdomen that was completed yesterday which shows 50% or more stenosis of the left renal artery. I spoke with Dr. Ellison about this fact and he recommends confirmatory test and this may explain her uncontrolled hypertension. I spoke with interventional radiology in [facility]. Then I spoke with interventional radiologist and [facility]. IR at [facility] recommends further studies which are not available here with possible angioplasty of the renal artery stenosis. Hence I called the hospitalist team and spoke with the hospitalist there regarding transfer patient and they have accepted her. She will be accepted under Dr. Pelaez. Unfortunately did not have a bed opening at this time but she will be on the list and will be transferred when ready. I truly appreciate the hospitalist team at [facility] for excepting this patient who will benefit from a higher level of care. - Time Time Spent with patient: 35 or more minutes - Plan Summary Plan Summary: Transfer patient to [facility] for higher level of care with interventional radiology for possible angioplasty at of left renal artery
[2018-10-23] MEDS: AMLODIPINE BESYLATE 5 MG TABLET PO SCH (21:17)
[2018-10-23] MEDS: INSULIN GLARGINE,HUM.REC.ANLOG 300 UNIT/3 ML INSULN.PEN SUBCUT SCH (21:17)
[2018-10-23] MEDS: ISOSORBIDE MONONITRATE 30 MG TAB.ER.24H PO SCH (21:18)
[2018-10-23] MEDS: PHARMACY COMMUNICATION ORDER MC SCH (21:18)
[2018-10-23] MEDS: ATORVASTATIN CALCIUM 40 MG TABLET PO SCH (21:18)
[2018-10-24] MEDS: PROMETHAZINE HCL INJ 25 MG/1 ML VIAL IV PRN (00:03)
[2018-10-24 00:20] VITALS: BP 134/63
[2018-10-24] MEDS: HYDROCODONE/ACETAMINOPHEN 5-325 MG TABLET PO PRN (00:21)
--- NOTE | 2018-10-24 01:07 | PDOC TRANSFER SUMMARY ---
General Admission Date/PCP: 09/29/18 01:09 AJITH JONES MD Admission Date: 09/29/18 Transfer Date: 10/24/18 Accepting Facility: [facility] Accepting Physician: [facility] Hospitalists: Dr. Pelaez Resuscitation Status: Full Code - Transfer Diagnosis (1) Acute respiratory failure with hypoxia Is this a current diagnosis for this admission?: Yes Diagnosis Summary: Resolved (2) Acute on chronic diastolic CHF (congestive heart failure), NYHA class 2 Is this a current diagnosis for this admission?: Yes Diagnosis Summary: Her Bumex has been held by nephrology today. Echocardiogram was done on 05/2018 and showed preserved EF with grade 2/4 diastolic heart failure. (3) Diabetes mellitus type 2 in obese Is this a current diagnosis for this admission?: Yes Diagnosis Summary: Continue with Lantus 12 units at night and sliding scale. (4) Hypertension Is this a current diagnosis for this admission?: Yes Diagnosis Summary: Treated with lisinopril, clonidine patch, Norvasc, and hydralazine as needed. She is also taking Bumex 1 mg daily. She continues to have blood pressure that is uncontrolled laying down and hypotension when she is standing. Please see discussion for renal artery stenosis (5) Bilateral lower extremity edema Is this a current diagnosis for this admission?: Yes Diagnosis Summary: Resolved, will continue to monitor, her Bumex has been held today by nephrology. May need to restart tomorrow. Likely secondary to heart failure. (6) Chronic kidney disease (CKD), stage III (moderate) Is this a current diagnosis for this admission?: Yes Diagnosis Summary: Nephrology is on board. 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 I appreciate consult from nephrology. (7) Renal artery stenosis in 1 of 2 vessels Is this a current diagnosis for this admission?: Yes Diagnosis Summary: Today I reviewed her MRI/MRA of the abdomen that was completed yesterday which shows 50% or more stenosis of the left renal artery. I spoke with Dr. Ellison about this fact and he recommends confirmatory test and this may explain her uncontrolled hypertension. I spoke with interventional radiology in [facility]. Then I spoke with interventional radiologist and [facility]. IR at [facility] recommends further studies which are not available here with possible angioplasty of the renal artery stenosis. Hence I called the hospitalist team and spoke with the hospitalist there regarding transfer patient and they have accepted her. She will be accepted under Dr. Pelaez. Unfortunately did not have a bed opening at this time but she will be on the list and will be transferred when ready. I truly appreciate the hospitalist team at [facility] for excepting this patient who will benefit from a higher level of care. - Transfer Medications Home Medications: Alendronate Sodium [Fosamax 70 mg Tablet] 70 mg PO SA@1000 09/29/18 Amlodipine Besylate [Norvasc 10 mg Tablet] 10 mg PO DAILY 09/29/18 Ascorbic Acid [C-1000] 1,000 mg PO DAILY 09/29/18 Atorvastatin Calcium [Lipitor 40 mg Tablet] 40 mg PO QHS 09/29/18 Bumetanide [Bumex 1 mg Tablet] 1 mg PO BID 09/29/18 Cholecalciferol (Vitamin D3) [Vitamin D3 1000 Unit Tablet] 1,000 unit PO DAILY 09/29/18 Gabapentin [Neurontin 300 mg Capsule] 300 mg PO Q8 09/29/18 Hydralazine HCl [Apresoline 25 mg Tablet] 75 mg PO Q8 09/29/18 Hydrocodone Bit/Acetaminophen [Hydrocodon-Acetaminophn 10-325] 1 tab PO Q6 09/29/18 Insulin Glargine,Hum.rec.anlog [Lantus Insulin 100 Unit/mL] 8 units SQ QHS 09/29/18 Insulin Lispro [Humalog Insulin (Lispro) 100 unit/mL] 0 unit SQ .SLIDING SCALE 09/29/18 Isosorbide Mononitrate [Imdur 30 mg Tablet.er] 30 mg PO QHS 09/29/18 Lisinopril [Prinivil 40 mg Tablet] 40 mg PO DAILY 09/29/18 Nebivolol HCl [Bystolic 5 mg Tablet] 5 mg PO DAILY 09/29/18 Omeprazole 40 mg PO QHS 09/29/18 Ondansetron HCl [Zofran 4 mg Tablet] 4 mg PO Q8HP PRN 09/29/18 Spironolactone [Aldactone 25 mg Tablet] 25 mg PO DAILY 09/29/18 Transfer Medications: Current Medications Acetaminophen (Tylenol 325 Mg Tablet) 650 mg PO Q4HP PRN PRN Reason: For headache, pain or fever Stop: 10/29/18 01:13 Last Admin: 10/11/18 22:33 Dose: 650 mg Documented by: Hydrocodone Bitart/Acetaminophen (Nunnelly 5-325 Mg Tablet) 1 tab PO Q6HP PRN PRN Reason: FOR PAIN Stop: 10/24/18 11:21 Last Admin: 10/24/18 00:21 Dose: 1 tab Documented by: Al Hydrox/Mg Hydrox/Simethicone (Maalox Plus Susp 30 Udcup) 30 ml PO Q4HP PRN PRN Reason: HEARTBURN Stop: 10/29/18 01:07 Alendronate Sodium (Fosamax "Weekly" 35 Mg Tablet) 70 mg PO Sa@0700 [facility] Stop: 11/04/18 06:59 Last Admin: 10/19/18 08:11 Dose: 70 mg Documented by: Amlodipine Besylate (Norvasc 5 Mg Tablet) 5 mg PO QHS [facility] Stop: 11/09/18 21:59 Last Admin: 10/23/18 21:17 Dose: 5 mg Documented by: Ascorbic Acid (Vitamin C 500 Mg Tablet) 1,000 mg PO DAILY [facility] Stop: 10/30/18 09:59 Last Admin: 10/23/18 10:21 Dose: 1,000 mg Documented by: Atorvastatin Calcium (Lipitor 40 Mg Tablet) 40 mg PO QHS [facility] Stop: 10/29/18 21:59 Last Admin: 10/23/18 21:18 Dose: 40 mg Documented by: Cholecalciferol (Vitamin D3 1000 Unit Tablet) 1,000 unit PO DAILY [facility] Stop: 10/30/18 09:59 Last Admin: 10/23/18 10:21 Dose: 1,000 unit Documented by: Ciprofloxacin (Cipro 500 Mg Tablet) 250 mg PO Q12 [facility] Stop: 10/24/18 12:59 Last Admin: 10/23/18 21:17 Dose: 250 mg Documented by: Clonidine HCl (Catapres-Tts 2 (0.2 Mg/24 Hr) [facility]) 1 each TD MO@2000 [facility] Stop: 11/13/18 19:59 Last Admin: 10/21/18 21:55 Dose: 1 each Documented by: Dextrose (Dextrose Inj 50% Syringe (25 Gm/50 Ml)) 12.5 gm IV PRN PRN; Protocol PRN Reason: FOR BG 50-69 IN ALERT PATIENT Stop: 10/29/18 13:59 Dextrose (Dextrose Inj 50% Syringe (25 Gm/50 Ml)) 25 gm IV PRN PRN; Protocol Stop: 10/29/18 13:59 Diphenhydramine HCl (Benadryl Inj 50 Mg/1 Ml Vial) 25 mg IV Q4HP PRN PRN Reason: MUSCLE SPASMS Stop: 11/14/18 01:42 Last Admin: 10/15/18 01:50 Dose: 25 mg Documented by: Docusate Sodium (Colace 100 Mg Capsule) 100 mg PO DAILY [facility] Stop: 10/29/18 09:59 Last Admin: 10/23/18 10:20 Dose: 100 mg Documented by: Famotidine (Pepcid 20 Mg Tablet) 20 mg PO Q12 [facility] Stop: 11/17/18 21:59 Last Admin: 10/23/18 21:18 Dose: 20 mg Documented by: Ferrous Sulfate (Feosol 325 Mg Tablet) 325 mg PO NOON [facility] Stop: 11/17/18 11:59 Last Admin: 10/23/18 11:48 Dose: 325 mg Documented by: Fondaparinux (Arixtra Inj 2.5 Mg/0.5 Ml Disp.Syrin) 2.5 mg SUBCUT DAILY [facility] Stop: 11/03/18 09:59 Last Admin: 10/23/18 10:20 Dose: 2.5 mg Documented by: Glucagon (Glucagen Inj 1 Mg Vial) 1 mg IM PRN PRN; Protocol PRN Reason: EVALUATE FOR BG < 70 Stop: 10/29/18 13:59 Glucose (Glutose 40% Gel 15 Gm Tube) 15 gm PO PRN PRN; Protocol PRN Reason: FOR BG 50-69 IN ALERT PATIENT Stop: 10/29/18 13:59 Glucose (Glutose 40% Gel 15 Gm Tube) 30 gm PO PRN PRN; Protocol PRN Reason: FOR BG < 50 IN ALERT PATIENT Stop: 10/29/18 13:59 Hydralazine HCl (Apresoline Inj/Pf 20 Mg/1 Ml Sdv) 10 mg IV Q6HP PRN PRN Reason: Give For Sbp > 175 Stop: 11/13/18 17:02 Hydrophilic Ointment (Aquaphor W-Johanne Heal Oint 50 Gm) 1 applic TOP BID [facility] Stop: 10/31/18 17:59 Last Admin: 10/23/18 17:02 Dose: Not Given Documented by: Insulin Glargine (Lantus Insulin Inj 300 Unit/3 Ml Pen) 12 unit SUBCUT QHS [facility] Stop: 11/13/18 21:59 Last Admin: 10/23/18 21:17 Dose: 12 unit Documented by: Insulin Human Lispro (Humalog Insulin 100 Unit/1 Ml 3 Ml Vial) 0 - 12 unit SUBCUT ACHSP PRN; Protocol PRN Reason: PER PROTOCOL Stop: 10/29/18 13:59 Last Admin: 10/23/18 11:48 Dose: 8 unit Documented by: Isosorbide Mononitrate (Imdur 30 Mg Tablet.Er) 30 mg PO QHS [facility] Stop: 10/30/18 21:59 Last Admin: 10/23/18 21:18 Dose: 30 mg Documented by: Labetalol HCl (Normodyne Inj 20 Mg/4 Ml Syringe) 20 mg IV Q2HP PRN PRN Reason: SBP ABOVE 160, DBP ABOVE 100 Stop: 11/14/18 03:58 Last Admin: 10/15/18 14:51 Dose: 20 mg Documented by: Lidocaine (Lidoderm 5% (700 Mg) Transdermal Patch) 1 patch TP DAILY [facility] Stop: 11/08/18 16:59 Last Admin: 10/23/18 10:27 Dose: Not Given Documented by: Lisinopril (Prinivil 10 Mg Tablet) 20 mg PO DAILY [facility] Stop: 11/17/18 09:59 Last Admin: 10/23/18 10:28 Dose: Not Given Documented by: Morphine Sulfate (Morphine 10 Mg/Ml Inj) 1 mg IV Q4HP PRN PRN Reason: PAIN Stop: 10/29/18 11:58 Last Admin: 10/23/18 21:17 Dose: 1 mg Documented by: Nicotine (Nicoderm 21 Mg/24 Hr Transderm Patch) 1 each TD DAILYP PRN PRN Reason: WITHDRAWAL SYMPTOMS Stop: 10/29/18 01:13 Ondansetron HCl (Zofran Odt 4 Mg Tablet) 4 mg PO Q6HP PRN PRN Reason: FOR NAUSEA/VOMITING Stop: 10/29/18 01:07 Last Admin: 10/18/18 05:52 Dose: 4 mg Documented by: Ondansetron HCl (Zofran Inj/Pf 4 Mg/2 Ml Sdv) 4 mg IV Q6HP PRN PRN Reason: FOR NAUSEA/VOMITING Stop: 11/14/18 11:11 Pharmacy Profile Note (Medication Communication Order) 1 each MC QHS [facility] Stop: 11/09/18 21:59 Last Admin: 10/23/18 21:18 Dose: Not Given Documented by: Promethazine HCl (Phenergan Inj 25 Mg/1 Ml Vial) 12.5 mg IV Q6HP PRN PRN Reason: FOR NAUSEA/VOMITING Stop: 11/02/18 11:30 Last Admin: 10/24/18 00:03 Dose: 12.5 mg Documented by: Sodium Chloride (Saline Flush 2.5 Ml Monoject Prefil Syrin) 2.5 ml IV Q8 [facility] Stop: 10/29/18 05:59 Last Admin: 10/23/18 21:18 Dose: 2.5 ml Documented by: Spironolactone (Aldactone 25 Mg Tablet) 25 mg PO QAM [facility] Stop: 11/23/18 07:59 - Allergies Allergies/Adverse Reactions: metaxalone [From Skelaxin] Allergy (Intermediate, Verified 09/03/18 12:13) Hives metformin Allergy (Intermediate, Verified 09/03/18 12:13) MUSCLE PAIN metoclopramide [From Reglan] Adverse Reaction (Severe, Verified 10/16/18 10:54) Dystonia - Diet/Activity Discharge Diet: Cardiac, Diabetic Hospital Course Hospital Course: JASMIN MURDOCK is a 58 year old female who presented to the emergency room with a 1-day history of gradually worsening dyspnea and a one week history increasing swelling of her bilateral upper and lower extremities. She admits that her dyspnea has become present at rest and is of moderate severity. Her lower extremity swelling is severe and has been accompanied by a weight gain of approximately 15 pounds over the last week. She also has swelling in her hands and in her abdomen and lower back. She admits that she has had numerous similar episodes in the past with her congestive heart failure and she has not identified any aggravating or ameliorating factors for these acute episodes. In the emergency room she was found to be hypoxic and required supplemental oxygen to maintain an O2 saturation above 93%. She had negative cardiac enzymes and an EKG which showed no evidence of acute myocardial injury or ischemia. With these findings she was admitted to the hospital for further evaluation and treatment of her acute respiratory failure with hypoxia and acute on chronic diastolic congestive heart failure. Her acute hypoxic respiratory failure resolved with therapy and her congestive heart failure was well controlled with medications. She was found to have persistent orthostatic hypotension and after evaluation it was determined that this was due to renal artery stenosis. A great deal of time was spent in trying to arrange for her further care to evaluate and treat her unilateral renal artery stenosis. After numerous facilities were contacted and refused to accept patient in transfer she has been accepted at [facility] by the hospitalist team with Dr. Pelaez being the accepting physician. Physical Exam Vital Signs: Temp Pulse Resp BP Pulse Ox 97.6 F 79 16 134/63 H 99 10/23/18 23:37 10/23/18 23:37 10/23/18 20:23 10/23/18 23:37 10/23/18 23:37 Intake & Output 10/22/18 10/23/18 10/24/18 23:59 23:59 23:59 Intake Total 1072 1749 Output Total 1240 1250 Balance -168 499 Weight 49.4 kg 53 kg General appearance: PRESENT: no acute distress, cooperative Head exam: PRESENT: atraumatic, normocephalic Neurological exam: PRESENT: alert, oriented to person, oriented to place, oriented to time Results Laboratory Results: 10/18/18 05:30 10/21/18 07:43 09/28/18 09/29/18 09/29/18 22:55 01:52 01:52 Creatine Kinase 197 H CK-MB (CK-2) 2.27 Troponin I < 0.012 < 0.012 NT-Pro-B Natriuret Pep 4310 H 09/29/18 09/29/18 09/29/18 07:58 07:58 15:00 Creatine Kinase 149 H 120 CK-MB (CK-2) 1.45 Troponin I < 0.012 NT-Pro-B Natriuret Pep 09/29/18 09/30/18 15:00 04:06 Creatine Kinase CK-MB (CK-2) 0.99 Troponin I < 0.012 NT-Pro-B Natriuret Pep 4370 H Impressions: Chest X-Ray 09/28/18 20:26 IMPRESSION: Bilateral pleural effusions. Renal Biopsy CT 10/02/18 00:00 IMPRESSION: CT GUIDED RIGHT KIDNEY CORTICAL BIOPSY. IV CONSCIOUS SEDATION Guidance Needle Placement CT 10/03/18 00:00 IMPRESSION: CT GUIDED RIGHT KIDNEY CORTICAL BIOPSY. IV CONSCIOUS SEDATION Ribs X-Ray 10/08/18 00:00 IMPRESSION: Nondisplaced posterior lateral right seventh rib fracture. Osteopenia. Small right pleural effusion copyright 2010 [employer]- All Rights Reserved Abdomen/Pelvis CT 10/14/18 00:00 IMPRESSION: Large fibroid. No acute findings. Renal Ultrasound 10/21/18 00:00 IMPRESSION: Normal kidneys and bladder. Large uterine fibroid. Abdomen MRI with MRA 10/22/18 00:00 IMPRESSION: 1 cm segment stenosis greater than 50% from the origin of theleft renal artery. Plan Discharge Plan: Patient is transferred to the [facility]. Dr. Pelaez is excepting patient in transfer for the hospitalist team there. Time Spent: Greater than 30 Minutes
[2018-10-24] MEDS ORDERED: SPIRONOLACTONE 25 MG TABLET PO SCH (08:00)
[2018-10-25 17:37] LABS: NORMETANEPHRINE 47 pg/mL (0-145)
[2018-10-26 06:38] LABS: CORTISOL FREE URINE 7 ug/L (Undefined)
[2018-10-27 07:23] LABS: METANEPHRINE <10 pg/mL (0-62)
[2018-10-27 07:24] LABS: CORTISOL FREE URINE 24 HR 2 6 ug/24 hr (0-50)
[2018-10-27 07:24] LABS: RENIN ACTIVITY 4.217 ng/mL/hr (0.167-5.38)
[2018-10-28 07:20] LABS: METANEPHRINE URINE 40 ug/L (Undefined); METANEPHRINE URINE 24HR 34 ug/24 hr (45-290); NORMETANEPHRINE URINE 87 ug/L (Undefined); NORMETANEPHRINE URINE 24HR 75 ug/24 hr (82-500)
== END 2018-10-24 00:30 | disposition short-term general hospital (02) | DRG 189 ==
LOC: ER 19:35 → EH 09-29 01:09 → 4N 09-29 02:46 → UNDODISIN 10-22 12:30
PROVIDERS: ADMIT Emergency Medicine; ATTEND Emergency Medicine
PROC: 0TB03ZX Excision of Right Kidney, Percutaneous Approach, Diagnostic (ICD-10-PCS; principal; 2018-10-03)
DX: J96.01 Acute respiratory failure with hypoxia (principal); I50.33 Acute on chronic diastolic (congestive) heart failure; I13.0 Hypertensive heart and chronic kidney disease with heart failure and stage 1 through stage 4 chronic kidney disease, or unspecified chronic kidney disease; N17.9 Acute kidney failure, unspecified; J90 Pleural effusion, not elsewhere classified; N39.0 Urinary tract infection, site not specified; I16.0 Hypertensive urgency; N18.3 Chronic kidney disease, stage 3 (moderate); I70.1 Atherosclerosis of renal artery; E11.22 Type 2 diabetes mellitus with diabetic chronic kidney disease; E11.43 Type 2 diabetes mellitus with diabetic autonomic (poly)neuropathy; K31.84 Gastroparesis; E11.21 Type 2 diabetes mellitus with diabetic nephropathy; D50.8 Other iron deficiency anemias; K21.9 Gastro-esophageal reflux disease without esophagitis; I34.0 Nonrheumatic mitral (valve) insufficiency; L92.9 Granulomatous disorder of the skin and subcutaneous tissue, unspecified; M19.90 Unspecified osteoarthritis, unspecified site; Z79.4 Long term (current) use of insulin; Z79.899 Other long term (current) drug therapy; Z88.8 Allergy status to other drugs, medicaments and biological substances; Z90.49 Acquired absence of other specified parts of digestive tract
CPT/HCPCS: 36415; 50200; 71045; 74176; 76770; 77012; 80048; 80053; 80061; 80069; 81001; 82088; 82530; 82533; 82550; 82553; 82570; 82575; 82607; 82728; 82746; 82962; 83036; 83540; 83550; 83735; 83835; 83880; 84156; 84165; 84244; 84439; 84443; 84481; 84484; 85025; 85027; 85045; 85610; 85652; 85730; 86021; 86038; 86160; 86256; 86317; 86704; 87086; 87340; 87522; 88313; 88346; 88348; 93005; 93010; 99285; C8901; J0360; J1200; J1644; J1652; J1815; J2250; J2270; J2405; J2550; J3010; J3490; J7040; Q4081; S0119

== ENCOUNTER 2018-11-08 16:12 | Inpatient (IN) | payer OTHER ==
--- NOTE | 2018-11-08 17:07 | ER Document Report ---
ED Medical Screen (RME) - General Chief Complaint: Leg Swelling Stated Complaint: FLUID RETENTION Time Seen by Provider: 11/08/18 17:05 Primary Care Provider: AJITH JONES MD [Primary Care Provider] - Follow up as needed Notes: 58-year-old female with a history of CHF that comes to the emergency department for chief complaint of lower extremity swelling, weight gain, denies difficulty breathing or dyspnea on exertion. Taking Bumex, reports compliant with medication. TRAVEL OUTSIDE OF THE [place] IN LAST 30 DAYS: No - Related Data Allergies/Adverse Reactions: metaxalone [From Skelaxin] Allergy (Intermediate, Verified 09/03/18 12:13) Hives metformin Allergy (Intermediate, Verified 09/03/18 12:13) MUSCLE PAIN metoclopramide [From Reglan] Adverse Reaction (Severe, Verified 10/16/18 10:54) Dystonia Past Medical History - Social History Chew tobacco use (# tins/day): No Frequency of alcohol use: Rare Drug Abuse: None - Past Medical History Cardiac Medical History: Reports: Hx Congestive Heart Failure, Hx Hypertension, Hx Heart Murmur - Moderate mitral regurgitation and aortic regurgitation Denies: Hx Atrial Fibrillation, Hx Coronary Artery Disease, Hx DVT, Hx Pulmonary Embolism Pulmonary Medical History: Denies: Hx Asthma, Hx Bronchitis, Hx COPD, Hx Pneumonia, Hx Intubation, Hx Respiratory Failure Neurological Medical History: Denies: Hx Cerebrovascular Accident, Hx Seizures Endocrine Medical History: Reports: Hx Diabetes Mellitus Type 2. Denies: Hx Diabetes Mellitus Type 1, Hx Hyperthyroidism, Hx Hypothyroidism Renal/ Medical History: Reports: Hx End Stage Renal Disease - stage 3. Denies: Hx Peritoneal Dialysis GI Medical History: Reports: Hx Gastroesophageal Reflux Disease. Denies: Hx Cirrhosis, Hx Hepatitis Musculoskeltal Medical History: Reports Hx Arthritis - BACK, Denies Hx Gout Skin Medical History: Denies Hx Eczema, Denies Hx Psoriasis Psychiatric Medical History: Denies: Hx Depression Infectious Medical History: Denies: Hx Hepatitis Past Surgical History: Reports: Hx Abdominal Surgery, Hx Cholecystectomy, Hx Orthopedic Surgery - back x3, Hx Tonsillectomy, Hx Tubal Ligation, Other - Ears - Immunizations Hx Diphtheria, Pertussis, Tetanus Vaccination: - UNSURE History of Influenza Vaccine for 07/2017 - 11/2017 Season: Yes Influenza Administration Date for 07/2017 - 11/2017 Season: 07/01/18 Physical Exam - Vital signs Vitals: Temp Pulse Resp BP Pulse Ox 99.6 F 81 17 208/78 H 98 11/08/18 16:44 11/08/18 16:44 11/08/18 16:44 11/08/18 16:44 11/08/18 16:44 - Respiratory Respiratory status: No respiratory distress Breath sounds: Normal. No: Rales - Cardiovascular Rhythm: Regular Heart sounds: Normal auscultation, S1 appreciated, S2 appreciated Murmur: No Course - Vital Signs Vital signs: Temp Pulse Resp BP Pulse Ox 99.6 F 81 17 208/78 H 98 11/08/18 16:44 11/08/18 16:44 11/08/18 16:44 11/08/18 16:44 11/08/18 16:44 Doctor's Discharge - Discharge Referrals: AJITH JONES MD [Primary Care Provider] - Follow up as needed
[2018-11-08 19:53] LABS: ALANINE AMINOTRANSFERASE 8 U/L (9-52); ALBUMIN 3.4 g/dL (3.5-5.0); ALKALINE PHOSPHATASE 81 U/L (38-126); ANION GAP 9 (5-19); ASPARTATE AMINO TRANSFERASE 24 U/L (14-36); BILIRUBIN,DIRECT 0.3 mg/dL (0.0-0.4); BILIRUBIN,TOTAL 0.5 mg/dL (0.2-1.3); BLOOD UREA NITROGEN 27 mg/dL (7-20); CALCIUM 8.4 mg/dL (8.4-10.2); CARBON DIOXIDE 27 mmol/L (22-30); CHLORIDE 102 mmol/L (98-107); GLUCOSE 227 mg/dL (75-110); POTASSIUM 4.8 mmol/L (3.6-5.0); SODIUM 138.1 mmol/L (137-145); TOTAL PROTEIN 5.9 g/dL (6.3-8.2)
[2018-11-08 23:51] LABS: ABSOLUTE EOSINOPHILS # (AUTO) 0.2 10^3/uL (0.0-0.6); ABSOLUTE LYMPHOCYTES (AUTO) 1.6 10^3/uL (0.5-4.7); ABSOLUTE MONOCYTES (AUTO) 0.6 10^3/uL (0.1-1.4); ABSOLUTE NEUT (AUTO) 5.6 10^3/uL (1.7-8.2); BASOPHILS % (AUTO) 0.5 % (0-2); EOSINOPHILS % (AUTO) 2.4 % (0-6); HEMATOCRIT 30.6 % (36.0-47.0); HEMOGLOBIN 10.9 g/dL (12.0-15.5); LYMPHOCYTES % (AUTO) 19.4 % (13-45); MEAN CORPUSCULAR HEMOGLOBIN 29.2 pg (27.0-33.4); MEAN CORPUSCULAR HGB CONC 35.6 g/dL (32.0-36.0); MEAN CORPUSCULAR VOLUME 82 fl (80-97); PLATELET COUNT 131 10^3/uL (150-450); RED BLOOD COUNT 3.73 10^6/uL (3.72-5.28); RED CELL DISTRIBUTION WIDTH 14.6 % (11.5-14.0); SEGMENTED NEUTROPHILS % (AUTO) 69.7 % (42-78); TOTAL CELLS COUNTED % (AUTO) 100 %; WHITE BLOOD COUNT 8.1 10^3/uL (4.0-10.5)
--- NOTE | 2018-11-09 01:56 | ER Document Report ---
ED General - General Chief Complaint: Leg Swelling Stated Complaint: FLUID RETENTION Time Seen by Provider: 11/08/18 17:05 Notes: Patient is a 58-year-old female presents with complaint of edema. Patient has a history of chronic recurrent edema. She has a history of renal insufficiency. Has a history of poorly controlled hypertension. Was admitted to the our facility and watched for a week. They did studies on a kidney which showed princess al artery stenosis and therefore she was referred to [facility]. They kept her there for a day and discharged her home. He said that there is no need for angioplasty based on the fact that stenosis only affecting one kidney. She has been taking her Bumex. She says that she is gained 19 pounds in fluid weight since leaving [facility]. That was approximately 2 weeks ago. She denies any chest pain. No shortness of breath. She does not wear compression stockings. No other complaints at this time. TRAVEL OUTSIDE OF THE [place] IN LAST 30 DAYS: No - Related Data Allergies/Adverse Reactions: metaxalone [From Skelaxin] Allergy (Intermediate, Verified 09/03/18 12:13) Hives metformin Allergy (Intermediate, Verified 09/03/18 12:13) MUSCLE PAIN metoclopramide [From Reglan] Adverse Reaction (Severe, Verified 10/16/18 10:54) Dystonia Past Medical History - Social History Smoking Status: Former Smoker Chew tobacco use (# tins/day): No Frequency of alcohol use: Rare Drug Abuse: None Family History: CAD, Hypertension Patient has suicidal ideation: No Patient has homicidal ideation: No - Past Medical History Cardiac Medical History: Reports: Hx Congestive Heart Failure, Hx Hypertension, Hx Heart Murmur - Moderate mitral regurgitation and aortic regurgitation Denies: Hx Atrial Fibrillation, Hx Coronary Artery Disease, Hx DVT, Hx Pulmonary Embolism Pulmonary Medical History: Denies: Hx Asthma, Hx Bronchitis, Hx COPD, Hx Pneumonia, Hx Intubation, Hx Respiratory Failure Neurological Medical History: Denies: Hx Cerebrovascular Accident, Hx Seizures Endocrine Medical History: Reports: Hx Diabetes Mellitus Type 2. Denies: Hx Diabetes Mellitus Type 1, Hx Hyperthyroidism, Hx Hypothyroidism Renal/ Medical History: Reports: Hx End Stage Renal Disease - stage 3. Denies: Hx Peritoneal Dialysis GI Medical History: Reports: Hx Gastroesophageal Reflux Disease. Denies: Hx Cirrhosis, Hx Hepatitis Musculoskeletal Medical History: Reports Hx Arthritis - BACK, Denies Hx Gout Skin Medical History: Denies Hx Eczema, Denies Hx Psoriasis Psychiatric Medical History: Denies: Hx Depression Infectious Medical History: Denies: Hx Hepatitis Past Surgical History: Reports: Hx Abdominal Surgery, Hx Cholecystectomy, Hx Orthopedic Surgery - back x3, Hx Tonsillectomy, Hx Tubal Ligation, Other - Ears - Immunizations Hx Diphtheria, Pertussis, Tetanus Vaccination: - UNSURE Review of Systems - Review of Systems Notes: My Normal Review Basic REVIEW OF SYSTEMS: CONSTITUTIONAL : Denies fever, chills, or sweats. Denies recent illness. CARDIOVASCULAR: Denies chest pain. RESPIRATORY: Denies cough, cold, or chest congestion. Denies shortness of breath, difficulty breathing, or wheezing. GASTROINTESTINAL: Denies abdominal pain. Denies nausea, vomiting, or diarrhea. GENITOURINARY: Denies difficulty urinating, painful urination, burning, frequency, or blood in urine. MUSCULOSKELETAL: Leg edema SKIN: Denies rash or skin lesions. NEUROLOGICAL: Denies altered mental status or loss of consciousness. Denies headache. Denies weakness or paralysis or loss of use of either side. Denies problems with gait or speech. Denies sensory or motor loss. ALL OTHER SYSTEMS REVIEWED AND NEGATIVE. Physical Exam - Vital signs Vitals: Temp Pulse Resp BP Pulse Ox 99.6 F 81 17 208/78 H 98 11/08/18 16:44 11/08/18 16:44 11/08/18 16:44 11/08/18 16:44 11/08/18 16:44 - Notes Notes: General Appearance: Well nourished, alert, cooperative, no acute distress, no obvious discomfort. Vitals: reviewed, See vital signs table. Head: no swelling or tenderness to the head Eyes: PERRL, EOMI, Conjuctiva clear Mouth: No decreasd moisture Lungs: No wheezing, No rales, No rhonci, No accessory muscle use, good air exchange bilaterally. Heart: Normal rate, Regular rythm, No murmur, no rub Abdomen: Normal BS, soft, No rigidity, No abdominal tenderness, No guarding, no rebound, no abdominal masses, no organomegaly Extremities: strength 5/5 in all extremities, good pulses in all extremities, no swelling or tenderness in the extremities, 3+ bilateral lower extremity edema. Skin: warm, dry, appropriate color, no rash Neuro: speech clear, oriented x 3, normal affect, responds appropriately to questions. Course - Re-evaluation Re-evalutation: 11/09/18 01:54 Patient does have some worsening renal function. She does have creasing edema in her legs and some weight gain. I talked her about NANDO hose and compression hoses she most likely is intravascularly depleted and fluid is not get back into her vessels are in order to allow her diuretics work appropriately and therefore her kidney function is worsening. Also obtain records from [facility] and [facility] recommend against angioplasty as he said it is a unilateral renal stenosis and therefore is not indicated. This time patient still concerned and wants to stay due to worsening renal function and increasing edema. I did speak with Dr. Hua who says that patient be better served at a facility that has nephrology on-call this weekend. I did explain this to the patient and explained to her Dr. Hua's concerns as he feels that being her history of fluctuating renal function and her history of nephropathy and her history of difficulty diuresis to be best to have a male infertility specialist to consult over the weekend. Patient says only the hospitalist we will go to at this time is . I did call [facility] and they are on diversion. I talked the patient offered transfer to [place]. Patient refuses to go that far away. She refuses to go back to [facility]. She says that she understands that we do not not have nephrology here this weekend and understands that her care main not be up to full standard but still request to be admitted here. I did call back and spoke with Dr. Hua who says he will come speak with the patient. 11/09/18 07:14 Dr. Hua did speak to the patient. He has admitted the patient. Dictation of this chart was performed using voice recognition software; therefore, there may be some unintended grammatical errors. - Vital Signs Vital signs: Temp Pulse Resp BP Pulse Ox 99.6 F 81 15 146/67 H 97 11/08/18 16:44 11/08/18 16:44 11/09/18 06:35 11/09/18 03:01 11/09/18 06:35 - Laboratory Result Diagrams: 11/08/18 23:42 11/08/18 19:00 Laboratory results interpreted by me: 11/08/18 11/08/18 11/08/18 19:00 19:00 23:42 Hgb 10.9 L Hct 30.6 L RDW 14.6 H Plt Count 131 L BUN 27 H Creatinine 1.85 H Est GFR ( Amer) 34 L Est GFR (Non-Af Amer) 28 L Glucose 227 H ALT 8 L NT-Pro-B Natriuret Pep 3420 H Total Protein 5.9 L Albumin 3.4 L Discharge - Discharge Clinical Impression: Renal insufficiency Edema Qualifiers: Edema type: unspecified Qualified Code(s): R60.9 - Edema, unspecified Hypertension Qualifiers: Hypertension type: essential hypertension Qualified Code(s): I10 - Essential (primary) hypertension Condition: Stable Disposition: ADMITTED OBSERVATION Admitting Provider: Hospitalist Unit Admitted: Medical Floor
[2018-11-09] MEDS ORDERED: MAG HYDROX/AL HYDROX/SIMETH SUSP 30 ML UDCUP PO PRN (03:26)
[2018-11-09] MEDS ORDERED: ONDANSETRON 4 MG TAB.RAPDIS PO PRN (03:26)
[2018-11-09] MEDS ORDERED: MAGNESIUM HYDROXIDE SUSP 30 ML UDCUP PO PRN (03:26)
[2018-11-09] MEDS ORDERED: NALBUPHINE HCL INJ 10 MG/1 ML AMPULE IV PRN (03:31)
[2018-11-09] MEDS ORDERED: ACETAMINOPHEN 325 MG TABLET PO PRN (03:31)
[2018-11-09] MEDS ORDERED: DEXTROSE 50%-WATER 25 GM/50 ML DISP.SYRIN IV PRN ×2 (03:32)
[2018-11-09] MEDS ORDERED: DEXTROSE 40% GEL 15 GM TUBE PO PRN ×2 (03:32)
[2018-11-09] MEDS ORDERED: GLUCAGON,HUMAN RECOMB 1 MG INJ IM PRN (03:32)
[2018-11-09 04:29] LABS: CREATINE KINASE MB 0.86 ng/mL (<4.55)
[2018-11-09 04:32] LABS: TROPONIN I < 0.012 ng/mL
[2018-11-09 04:34] LABS: FREE T3 3.79 pg/mL (2.77-5.27); FREE T4 (FREE THYROXINE) 1.24 ng/dL (0.78-2.19)
[2018-11-09 04:48] LABS: THYROID STIMULATING HORMONE 1.29 uIU/mL (0.47-4.68)
[2018-11-09] MEDS: ALBUMIN HUMAN 12.5 GM/50 ML RTUINJ IV SCH ×4 (04:52→09:05)
--- NOTE | 2018-11-09 05:09 | PDOC H&P ---
History of Present Illness Admission Date/PCP: AJITH JONES MD Patient complains of: Bilateral lower extremity edema History of Present Illness: JASMIN MURDOCK is a 58 year old female who presents the emergency room with a 2-week history of worsening swelling of her lower extremities. Patient admits that she was discharged from [facility] 13 days ago and since that time she has gradually gained 19 pounds with progressively worsening swelli ng of her lower extremities. She has been taking her medications as instructed since the time she left [facility] but has noted decreased urine output despite diuretic therapy. She denies associated symptoms specifically dyspnea, diaphoresis, chest pain and palpitations. She admits to continued chronic nausea and vomiting secondary to her gastroparesis, but this is unchanged from her long-standing chronic disease. She admits to similar prior episodes with exacerbations of her heart failure and she has not identified any aggravating or ameliorating factors for her peripheral edema. In the emergency room she was noted to have a significantly elevated BNP and a creatinine that was nearly double the value of her previous creatinine approximately 1 month ago. With acute kidney injury and an acute exacerbation of her congestive heart failure it was felt that the patient may best be served by being able to be evaluated and treated by a financial administrative assistant. There is no nephrology available at this time at our hospital and it would be Sunday before patient could be seen in consultation. However she does not wish to be transferred to any facility other than [facility] which is on diversion and the patient obviously needs to be treated. I have discussed with her my willingness to initiate appropriate therapy and make appropriate changes in her medications to which she has responded positively and admission will be undertaken. Past Medical History Cardiac Medical History: Reports: Congestive Heart Failure, Hypertension, Heart Murmur - Moderate mitral regurgitation and aortic regurgitation Denies: Atrial Fibrillation, Coronary Artery Disease, DVT, Pulmonary Embolism Pulmonary Medical History: Denies: Asthma, Bronchitis, Chronic Obstructive Pulmonary Disease (COPD), Intubation, Pneumonia, Respiratory Failure EENT Medical History: Reports: Cataracts Neurological Medical History: Denies: Seizures Endocrine Medical History: Reports: Diabetes Mellitus Type 2 Denies: Diabetes Mellitus Type 1, Hyperthyroidism, Hypothyroidism Renal/ Medical History: Reports: Chronic Kidney Disease Denies: Nephrolithiasis Malignancy Medical History: Reports: None GI Medical History: Reports: Gastroesophageal Reflux Disease, Other - Chronic gastroparesis Denies: Cirrhosis, Hepatitis Musculoskeltal Medical History: Reports: Arthritis - BACK, Other - Chronic back pain status post back surgery x3 Denies: Gout Skin Medical History: Denies: Eczema, Psoriasis Psychiatric Medical History: Denies: Alcohol Dependency, Depression, Substance Abuse, Tobacco Dependency Traumatic Medical History: Reports: None Hematology: Reports: Anemia Denies: Bleeding Tendencies Infectious Medical History: Reports: None Past Surgical History Past Surgical History: Reports: Cholecystectomy, Orthopedic Surgery - back x3, Tonsillectomy, Tubal Ligation, Other - Ears, bilateral cataract surgery Social History Information Source: Patient Lives with: Alone Smoking Status: Former Smoker Frequency of Alcohol Use: None Hx Recreational Drug Use: No Drugs: None Hx Prescription Drug Abuse: No - Advance Directive Resuscitation Status: Full Code Surrogate healthcare decision maker:: Binta Chapman Family History Family History: CAD, Hypertension Parental Family History Reviewed: Yes Children Family History Reviewed: No Sibling(s) Family History Reviewed.: Yes Medication/Allergy Home Medications: Alendronate Sodium [Fosamax 70 mg Tablet] 70 mg PO SA@1000 09/29/18 Amlodipine Besylate [Norvasc 10 mg Tablet] 10 mg PO DAILY 09/29/18 Ascorbic Acid [C-1000] 1,000 mg PO DAILY 09/29/18 Atorvastatin Calcium [Lipitor 40 mg Tablet] 40 mg PO QHS 09/29/18 Bumetanide [Bumex 1 mg Tablet] 1 mg PO BID 09/29/18 Cholecalciferol (Vitamin D3) [Vitamin D3 1000 Unit Tablet] 1,000 unit PO DAILY 09/29/18 Gabapentin [Neurontin 300 mg Capsule] 300 mg PO Q8 09/29/18 Hydralazine HCl [Apresoline 25 mg Tablet] 75 mg PO Q8 09/29/18 Hydrocodone Bit/Acetaminophen [Hydrocodon-Acetaminophn 10-325] 1 tab PO Q6 09/29/18 Insulin Glargine,Hum.rec.anlog [Lantus Insulin 100 Unit/mL] 8 units SQ QHS Insulin Lispro [Humalog Insulin (Lispro) 100 unit/mL] 0 unit SQ .SLIDING SCALE 09/29/18 Isosorbide Mononitrate [Imdur 30 mg Tablet.er] 30 mg PO QHS 09/29/18 Lisinopril [Prinivil 40 mg Tablet] 40 mg PO DAILY 09/29/18 Nebivolol HCl [Bystolic 5 mg Tablet] 5 mg PO DAILY 09/29/18 Omeprazole 40 mg PO QHS 09/29/18 Ondansetron HCl [Zofran 4 mg Tablet] 4 mg PO Q8HP PRN 09/29/18 Spironolactone [Aldactone 25 mg Tablet] 25 mg PO DAILY 09/29/18 Allergies/Adverse Reactions: metaxalone [From Skelaxin] Allergy (Intermediate, Verified 09/03/18 12:13) Hives metformin Allergy (Intermediate, Verified 09/03/18 12:13) MUSCLE PAIN metoclopramide [From Reglan] Adverse Reaction (Severe, Verified 10/16/18 10:54) Dystonia Review of Systems Constitutional: PRESENT: weight gain. ABSENT: anorexia, chills, fever(s) Eyes: ABSENT: visual disturbances, other - Eye pain Ears: ABSENT: hearing changes, other - Ear pain Nose, Mouth, and Throat: ABSENT: mouth pain, sore throat Cardiovascular: PRESENT: as per HPI, edema. ABSENT: chest pain, dyspnea on exertion, orthropnea, palpitations Respiratory: ABSENT: cough, dyspnea Gastrointestinal: PRESENT: constipation, nausea - Chronic gastroparesis, vomiting - Chronic gastroparesis. ABSENT: abdominal pain, diarrhea Genitourinary: ABSENT: dysuria, hematuria Musculoskeletal: PRESENT: back pain - Chronic. ABSENT: joint swelling Integumentary: ABSENT: pruritus, rash Neurological: ABSENT: confusion, convulsions, memory loss Psychiatric: ABSENT: anxiety, depression Endocrine: ABSENT: cold intolerance, heat intolerance Hematologic/Lymphatic: ABSENT: easy bleeding, easy bruising Physical Exam Vital Signs: Temp Pulse Resp BP Pulse Ox 99.6 F 81 17 208/78 H 98 11/08/18 16:44 11/08/18 16:44 11/08/18 16:44 11/08/18 16:44 11/08/18 16:44 Intake & Output 11/07/18 11/08/18 11/09/18 23:59 23:59 23:59 Weight 60.5 kg General appearance: PRESENT: no acute distress, cooperative Head exam: PRESENT: atraumatic, normocephalic Eye exam: PRESENT: conjunctiva pink, EOMI, scleral icterus, other - Status post bilateral cataract lens extraction and replacement Ear exam: PRESENT: normal external ear exam. ABSENT: bleeding, drainage Mouth exam: PRESENT: dry mucosa, neck supple Neck exam: PRESENT: JVD. ABSENT: thyromegaly, tracheal deviation Respiratory exam: PRESENT: clear to auscultation joshua, symmetrical, unlabored Cardiovascular exam: PRESENT: gallop, RRR, systolic murmur - Grade 3/6 holosystolic murmur at the apex with radiation to the axilla, grade 2/6 c rescendo decrescendo systolic murmur at the aortic root with radiation to the neck.. ABSENT: clicks, rubs Pulses: PRESENT: normal radial pulses, normal dorsalis pedis pul Vascular exam: PRESENT: normal capillary refill. ABSENT: pallor GI/Abdominal exam: PRESENT: normal bowel sounds, soft, tenderness - Mild generalized tenderness throughout the abdomen on light and deep palpation Rectal exam: PRESENT: deferred Extremities exam: PRESENT: other - 3+ pitting edema to the knees bilaterally. ABSENT: calf tenderness, clubbing, joint swelling Musculoskeletal exam: PRESENT: full ROM. ABSENT: deformity, dislocation Neurological exam: PRESENT: alert, oriented to person, oriented to place, oriented to time, oriented to situation, CN II-XII grossly intact. ABSENT: motor sensory deficit Psychiatric exam: PRESENT: appropriate affect, normal mood Skin exam: PRESENT: dry, intact, warm. ABSENT: jaundice, rash, urticaria Results Laboratory Results: 11/08/18 23:42 11/08/18 19:00 11/08/18 11/08/18 11/08/18 19:00 19:00 23:42 WBC Cancelled 8.1 RBC Cancelled 3.73 Hgb Cancelled 10.9 L Hct Cancelled 30.6 L MCV Cancelled 82 MCH Cancelled 29.2 MCHC Cancelled 35.6 RDW Cancelled 14.6 H Plt Count Cancelled 131 L Seg Neutrophils % Cancelled 69.7 Lymphocytes % Cancelled 19.4 Monocytes % Cancelled 8.0 Eosinophils % Cancelled 2.4 Basophils % Cancelled 0.5 Absolute Neutrophils Cancelled 5.6 Absolute Lymphocytes Cancelled 1.6 Absolute Monocytes Cancelled 0.6 Absolute Eosinophils Cancelled 0.2 Absolute Basophils Cancelled 0.0 Sodium 138.1 Potassium 4.8 Chloride 102 Carbon Dioxide 27 Anion Gap 9 BUN 27 H Creatinine 1.85 H Est GFR ( Amer) 34 L Est GFR (Non-Af Amer) 28 L Glucose 227 H Calcium 8.4 Total Bilirubin 0.5 AST 24 ALT 8 L Alkaline Phosphatase 81 Total Protein 5.9 L Albumin 3.4 L 11/08/18 19:00 NT-Pro-B Natriuret Pep 3420 H Assessment & Plan - Diagnosis (1) Renovascular hypertension, malignant Is this a current diagnosis for this admission?: Yes Plan: Patient's renovascular hypertension will be treated with her congestive heart failure utilizing beta blockers and ARB's as well as diuretics. Due to the patient's propensity to develop orthostatic hypotension it would be best to avoid calcium channel blockers, alpha blockers and nitrates if possible. (2) Acute kidney injury superimposed on chronic kidney disease Is this a current diagnosis for this admission?: Yes Plan: Patient appears to have a reasonably normal intravascular volume based on her clinical exam. It is quite probable that her renal failure is due to medications especially the extremely high dose of lisinopril which she was taking. Adjustments have been made to her therapeutic regiment and treatment will be initiated with beta blockers as well as ARB's and diuretics along with an albumin infusion followed by a Lasix infusion. Patient's diuresis will be reassessed after a 12-hour course of Lasix infusion and consideration for further treatment with Lasix infusion to reduce her peripheral edema and to help correct her congestive heart failure as well as her renal failure will be given. (3) Acute on chronic diastolic CHF (congestive heart failure), NYHA class 2 Is this a current diagnosis for this admission?: Yes Plan: Patient appears to have a reasonably normal intravascular volume based on her clinical exam. It is quite probable that her renal failure is due to medications especially the extremely high dose of lisinopril which she was taking. Adjustments have been made to her therapeutic regiment and treatment will be initiated with beta blockers as well as ARB's and diuretics along with an albumin infusion followed by a Lasix infusion. Patient's diuresis will be reassessed after a 12-hour course of Lasix infusion and consideration for further treatment with Lasix infusion to reduce her peripheral edema and to help correct her congestive heart failure as well as her renal failure will be given. (4) Diabetic gastroparesis Is this a current diagnosis for this admission?: Yes Plan: The patient is unfortunately allergic to metoclopramide and therefore only supportive care as well as adequate reduction of of gastric acid with a proton pump inhibitor, incorporated with multiple small feedings and frequent small boluses of oral fluids is available as a treatment option. This will be offered and hopefully can be accomplished by dietary services. - Time Time Spent: 30 to 50 Minutes Critical Time spent with patient: Less than 15 minutes Medications reviewed and adjusted accordingly: Yes Anticipated discharge: Home - Inpatient Certification Based on my medical assessment, after consideration of the patient's comorbidities, presenting symptoms, or acuity I expect that the services needed warrant INPATIENT care.: Yes I certify that my determination is in accordance with my understanding of Medicare's requirements for reasonable and necessary INPATIENT services [42 CFR 412.3e].: Yes Medical Necessity: Significant Comorbidiites Make Outpatient Treatment Too Risky, Need Close Monitoring Due to Risk of Patient Decompensation, Need For IV Fluids, Need For Continuous Telemetry Monitoring, Risk of Complication if Not Cared For in Hospital
[2018-11-09] MEDS ORDERED: NORMAL SALINE 250 ML with FUROSEMIDE 250 MG IV PRN ×2 (06:00)
[2018-11-09] MEDS: HEPARIN SOD (PORCINE) 5,000 UNIT/ML 1 ML SYRINGE SUBCUT SCH ×3 (06:22→21:25)
[2018-11-09] MEDS: LANSOPRAZOLE 30 MG TAB.RAP.DR PO SCH ×2 (06:23→18:20)
[2018-11-09] MEDS: ONDANSETRON HCL INJ/PF 4 MG/2 ML SDV IV PRN ×4 (07:05→21:26)
[2018-11-09 07:10] LABS: APPEARANCE,URINE CLEAR; BILIRUBIN,URINE NEGATIVE (NEGATIVE); COLOR,URINE STRAW; GLUCOSE, URINE 50 mg/dL (NEGATIVE); KETONES,URINE NEGATIVE (NEGATIVE); LEUKOCYTE ESTERASE,URINE TRACE (NEGATIVE); NITRITE,URINE NEGATIVE (NEGATIVE); PROTEIN,URINE >=500 mg/dL (NEGATIVE); URINE SPECIFIC GRAVITY 1.008; UROBILINOGEN,URINE NEGATIVE mg/dL (<2.0)
[2018-11-09 07:23] LABS: URINE AMPHETAMINES SCREEN NEGATIVE; URINE BARBITURATES SCREEN NEGATIVE; URINE BENZODIAZEPINES SCREEN NEGATIVE; URINE COCAINE SCREEN NEGATIVE; URINE MARIJUANA (THC) SCREEN NEGATIVE; URINE METHADONE SCREEN NEGATIVE; URINE PHENCYCLIDINE SCREEN NEGATIVE
[2018-11-09] MEDS: HYDRALAZINE HCL INJ/PF 20 MG/1 ML SDV IV PRN ×2 (07:44→11:39)
[2018-11-09] MEDS: LOSARTAN POTASSIUM 50 MG TABLET PO SCH (09:53)
[2018-11-09] MEDS: ASCORBIC ACID 500 MG TABLET PO SCH (09:53)
[2018-11-09] MEDS: SPIRONOLACTONE 25 MG TABLET PO SCH (09:54)
[2018-11-09] MEDS: CHOLECALCIFEROL (D3) 1,000 UNIT TABLET PO SCH (09:54)
[2018-11-09] MEDS: DOCUSATE SODIUM 100 MG CAPSULE PO SCH ×2 (09:54→18:20)
[2018-11-09] MEDS: METOPROLOL SUCCINATE 50 MG TAB.SR.24H PO SCH (09:54)
[2018-11-09 10:10] LABS: CREATINE KINASE MB 0.62 ng/mL (<4.55)
[2018-11-09 10:18] LABS: TROPONIN I < 0.012 ng/mL
[2018-11-09] MEDS: AMLODIPINE BESYLATE 10 MG TABLET PO SCH (15:42)
[2018-11-09 16:12] LABS: CREATINE KINASE MB 0.74 ng/mL (<4.55)
[2018-11-09 16:16] LABS: TROPONIN I < 0.012 ng/mL
[2018-11-09] MEDS ORDERED: PROCHLORPERAZINE MALEATE 10 MG TABLET PO PRN (16:18)
[2018-11-09] MEDS ORDERED: HYDRALAZINE HCL INJ/PF 20 MG/1 ML SDV IV ONE (16:45)
[2018-11-09] MEDS: PROMETHAZINE HCL 25 MG TABLET PO PRN (17:11)
[2018-11-09] MEDS: OXYCODONE HCL IR 5 MG TABLET PO PRN (17:11)
[2018-11-09] MEDS: ISOSORBIDE MONONITRATE 30 MG TAB.ER.24H PO SCH (21:26)
[2018-11-09] MEDS: ATORVASTATIN CALCIUM 40 MG TABLET PO SCH (21:26)
[2018-11-09] MEDS: INSULIN GLARGINE,HUM.REC.ANLOG 300 UNIT/3 ML INSULN.PEN SUBCUT SCH (21:29)
[2018-11-10 05:27] LABS: HEMATOCRIT 29.5 % (36.0-47.0); HEMOGLOBIN 10.6 g/dL (12.0-15.5); MEAN CORPUSCULAR HEMOGLOBIN 29.6 pg (27.0-33.4); MEAN CORPUSCULAR HGB CONC 35.9 g/dL (32.0-36.0); MEAN CORPUSCULAR VOLUME 82 fl (80-97); PLATELET COUNT 129 10^3/uL (150-450); RED BLOOD COUNT 3.59 10^6/uL (3.72-5.28); RED CELL DISTRIBUTION WIDTH 14.3 % (11.5-14.0); WHITE BLOOD COUNT 7.5 10^3/uL (4.0-10.5)
[2018-11-10 05:46] LABS: ANION GAP 7 (5-19); BLOOD UREA NITROGEN 26 mg/dL (7-20); CALCIUM 8.6 mg/dL (8.4-10.2); CARBON DIOXIDE 31 mmol/L (22-30); CHLORIDE 104 mmol/L (98-107); GLUCOSE 108 mg/dL (75-110); POTASSIUM 3.7 mmol/L (3.6-5.0); SODIUM 141.9 mmol/L (137-145); TRIGLYCERIDES 169 mg/dL (<150)
[2018-11-10 05:57] LABS: DIRECT LDL 83 mg/dL (<100)
[2018-11-10 06:01] LABS: VLDL CHOLESTEROL 33.8 mg/dL (10-31)
[2018-11-10] MEDS: HEPARIN SOD (PORCINE) 5,000 UNIT/ML 1 ML SYRINGE SUBCUT SCH ×3 (06:26→22:13)
[2018-11-10] MEDS: LANSOPRAZOLE 30 MG TAB.RAP.DR PO SCH ×2 (06:26→17:18)
[2018-11-10] MEDS: HYDRALAZINE HCL INJ/PF 20 MG/1 ML SDV IV PRN (06:31)
[2018-11-10] MEDS: PROMETHAZINE HCL 25 MG TABLET PO PRN ×2 (07:35→17:18)
[2018-11-10] MEDS: OXYCODONE HCL IR 5 MG TABLET PO PRN ×3 (07:35→23:19)
[2018-11-10] MEDS: LOSARTAN POTASSIUM 50 MG TABLET PO SCH (09:18)
[2018-11-10] MEDS: DOCUSATE SODIUM 100 MG CAPSULE PO SCH ×2 (09:18→17:18)
[2018-11-10] MEDS: SPIRONOLACTONE 25 MG TABLET PO SCH (09:18)
[2018-11-10] MEDS: AMLODIPINE BESYLATE 10 MG TABLET PO SCH (09:18)
[2018-11-10] MEDS: METOPROLOL SUCCINATE 50 MG TAB.SR.24H PO SCH (09:18)
[2018-11-10] MEDS: ASCORBIC ACID 500 MG TABLET PO SCH (09:18)
[2018-11-10] MEDS: CHOLECALCIFEROL (D3) 1,000 UNIT TABLET PO SCH (09:18)
[2018-11-10] MEDS: INSULIN REG, HUMAN 100 UNIT/ML 3 ML VIAL (PYX) SUBCUT PRN ×2 (12:43→17:18)
--- NOTE | 2018-11-10 14:18 | PDOC PROGRESS REPORT ---
Subjective Progress Note for:: 11/10/18 Subjective:: OVernight complained of nausea with improvement on Phenergen. Received milk of mangnesia for constipation and had BM. Feels a little better this morning. LE swelling reduced. Denies fevers, chills, CP, SOB, abdominal pain. Minimal ambulation. Reason For Visit: ACUTE ON CHRONIC DIASTOLIC CONGESTIVE HEART FAILUR Physical Exam Vital Signs: Temp Pulse Resp BP Pulse Ox 97.8 F 80 16 145/56 H 95 11/10/18 11:08 11/10/18 11:08 11/10/18 11:08 11/10/18 11:08 11/10/18 11:08 Intake & Output 11/09/18 11/10/18 11/11/18 06:59 06:59 06:59 Intake Total 50 350 Output Total 1700 200 Balance 50 -1350 -200 Weight 60.5 kg 61.6 kg General appearance: PRESENT: no acute distress, cooperative, thin Mouth exam: PRESENT: dry mucosa Respiratory exam: PRESENT: unlabored. ABSENT: tachypnea, wheezes Cardiovascular exam: PRESENT: +S1, +S2. ABSENT: tachycardia GI/Abdominal exam: PRESENT: normal bowel sounds, soft. ABSENT: tenderness Extremities exam: PRESENT: full ROM Neurological exam: PRESENT: alert, awake, CN II-XII grossly intact Psychiatric exam: PRESENT: flat affect Skin exam: PRESENT: dry, intact Results Laboratory Results: 11/10/18 04:26 11/10/18 04:26 11/10/18 11/10/18 04:26 04:26 WBC 7.5 RBC 3.59 L Hgb 10.6 L Hct 29.5 L MCV 82 MCH 29.6 MCHC 35.9 RDW 14.3 H Plt Count 129 L Sodium 141.9 Potassium 3.7 Chloride 104 Carbon Dioxide 31 H Anion Gap 7 BUN 26 H Creatinine 1.40 H Est GFR ( Amer) 47 L Est GFR (Non-Af Amer) 39 L Glucose 108 Calcium 8.6 Magnesium 1.6 Triglycerides 169 H Cholesterol 148.70 LDL Cholesterol Direct 83 VLDL Cholesterol 33.8 H HDL Cholesterol 32 L 11/08/18 11/09/18 11/09/18 19:00 03:53 03:53 Creatine Kinase 74 CK-MB (CK-2) 0.86 Troponin I < 0.012 NT-Pro-B Natriuret Pep 3420 H 11/09/18 11/09/18 11/09/18 09:28 09:28 15:22 Creatine Kinase 62 51 CK-MB (CK-2) 0.62 Troponin I < 0.012 NT-Pro-B Natriuret Pep 11/09/18 15:22 Creatine Kinase CK-MB (CK-2) 0.74 Troponin I < 0.012 NT-Pro-B Natriuret Pep Assessment & Plan - Diagnosis (1) Hypertension Qualifiers: Hypertension type: essential hypertension Qualified Code(s): I10 - Essential (primary) hypertension Is this a current diagnosis for this admission?: Yes Plan: Pt has hx of renovascular HTN - BP better controlled over last 24 hours after re-starting home medications inclduing Norvasc, Imdur, Aldactone. Also has been on Toprol XL and Cozaar for CHF - UA from 11/09 shows evidence of protein loss - Would benefit from 24 hour Urine study to quantify degree of severity - Will consult nephrology (Dr. Nichols) to assist with management (2) Acute kidney injury Is this a current diagnosis for this admission?: Yes Plan: Cr improved, downtrended from 1.8 to 1.4 on 11/10 labs - Continue current management (3) Acute on chronic diastolic (congestive) heart failure Is this a current diagnosis for this admission?: Yes Plan: Appears euvolemic on exam - Will be helpful to obtain recent TTE report to assess baseline - Otherwise, echo during current admission would be helpful (4) Diabetes Qualifiers: Diabetes mellitus complication status: without complication Is this a current diagnosis for this admission?: No Plan: Well controlled DM, HgA1c 6.4% (5) Diabetic gastroparesis Is this a current diagnosis for this admission?: Yes (6) Gastroesophageal reflux disease Qualifiers: Esophagitis presence: without esophagitis Qualified Code(s): K21.9 - Gastro-esophageal reflux disease without esophagitis Is this a current diagnosis for this admission?: Yes Plan: allergic to metoclopramide - Continue supportive care - PPI - Encourage small feedings and frequent small boluses of oral fluids (7) Constipation Is this a current diagnosis for this admission?: Yes Plan: Received milk of mag on 11/09 with improvement - Ordered PRN - Time Time Spent with patient: 15-24 minutes
[2018-11-10] MEDS: MAGNESIUM HYDROXIDE SUSP 30 ML UDCUP PO SCH (17:18)
[2018-11-10] MEDS: INSULIN GLARGINE,HUM.REC.ANLOG 300 UNIT/3 ML INSULN.PEN SUBCUT SCH (22:13)
[2018-11-10] MEDS: ATORVASTATIN CALCIUM 40 MG TABLET PO SCH (22:13)
[2018-11-10] MEDS: ISOSORBIDE MONONITRATE 30 MG TAB.ER.24H PO SCH (22:13)
[2018-11-10] MEDS: OMEPRAZOLE 40MG CAPSULE PO SCH (22:14)
[2018-11-11] MEDS: ONDANSETRON HCL INJ/PF 4 MG/2 ML SDV IV PRN (02:12)
[2018-11-11 04:59] LABS: HEMATOCRIT 28.6 % (36.0-47.0); MEAN CORPUSCULAR HEMOGLOBIN 28.9 pg (27.0-33.4); MEAN CORPUSCULAR HGB CONC 35.1 g/dL (32.0-36.0); MEAN CORPUSCULAR VOLUME 82 fl (80-97); PLATELET COUNT 123 10^3/uL (150-450); RED BLOOD COUNT 3.47 10^6/uL (3.72-5.28)
[2018-11-11 05:44] LABS: ANION GAP 6 (5-19); BLOOD UREA NITROGEN 24 mg/dL (7-20); CALCIUM 8.3 mg/dL (8.4-10.2); CARBON DIOXIDE 30 mmol/L (22-30); CHLORIDE 104 mmol/L (98-107); GLUCOSE 123 mg/dL (75-110); POTASSIUM 3.5 mmol/L (3.6-5.0); SODIUM 139.7 mmol/L (137-145)
[2018-11-11] MEDS: LANSOPRAZOLE 30 MG TAB.RAP.DR PO SCH ×2 (06:03→17:38)
[2018-11-11] MEDS: HEPARIN SOD (PORCINE) 5,000 UNIT/ML 1 ML SYRINGE SUBCUT SCH ×3 (06:07→22:32)
[2018-11-11] MEDS: PROMETHAZINE HCL 25 MG TABLET PO PRN (07:26)
[2018-11-11] MEDS: METOPROLOL SUCCINATE 50 MG TAB.SR.24H PO SCH (09:26)
[2018-11-11] MEDS: AMLODIPINE BESYLATE 10 MG TABLET PO SCH (09:26)
[2018-11-11] MEDS: DOCUSATE SODIUM 100 MG CAPSULE PO SCH ×2 (09:28→17:38)
[2018-11-11] MEDS: CHOLECALCIFEROL (D3) 1,000 UNIT TABLET PO SCH (09:28)
[2018-11-11] MEDS: SPIRONOLACTONE 25 MG TABLET PO SCH (09:28)
[2018-11-11] MEDS: ASCORBIC ACID 500 MG TABLET PO SCH (09:28)
[2018-11-11] MEDS: LOSARTAN POTASSIUM 50 MG TABLET PO SCH (09:28)
[2018-11-11] MEDS: MAGNESIUM HYDROXIDE SUSP 30 ML UDCUP PO SCH ×2 (09:29→17:38)
[2018-11-11] MEDS: OXYCODONE HCL IR 5 MG TABLET PO PRN ×3 (09:36→23:54)
[2018-11-11] MEDS ORDERED: POTASSIUM CHLORIDE 10 MEQ CAPSULE.ER PO ONE (10:48)
[2018-11-11] MEDS ORDERED: MAGNESIUM SULFATE/D5W 1 GM/100 ML RTUPB IV ONE (12:00)
[2018-11-11] MEDS: HYDRALAZINE HCL INJ/PF 20 MG/1 ML SDV IV PRN (13:27)
[2018-11-11] MEDS: INSULIN REG, HUMAN 100 UNIT/ML 3 ML VIAL (PYX) SUBCUT PRN ×2 (13:37→17:50)
[2018-11-11] MEDS: ISOSORBIDE MONONITRATE 30 MG TAB.ER.24H PO SCH (22:32)
[2018-11-11] MEDS: ATORVASTATIN CALCIUM 40 MG TABLET PO SCH (22:32)
[2018-11-11] MEDS: OMEPRAZOLE 40MG CAPSULE PO SCH (22:35)
[2018-11-11] MEDS: INSULIN GLARGINE,HUM.REC.ANLOG 300 UNIT/3 ML INSULN.PEN SUBCUT SCH (22:36)
--- NOTE | 2018-11-11 22:55 | PDOC CONSULTATION ---
Consultation Consult Date: 11/11/18 Attending physician:: MARCELLO CARIAS Consult reason:: I was asked to see the patient due to acute worsening of kidney function as well as difficult to control hypertension. History of Present Illness Admission Date/PCP: 11/09/18 04:00 AJITH JONES MD History of Present Illness: JASMIN MURDOCK is a 58 year old female with complex past medical history including chronic kidney disease secondary to diabetic nephropathy with nephrotic range proteinuria status post kidney biopsy last October 2018, diastolic congestive heart failure, hypertension, diabetes mellitus type 2 with diabetic gastroparesis, left renal artery stenosis based from MRA last month who was again admitted over the weekend because of increasing lower extremity swelling. Patient was here in the hospital for about 4 weeks last month due to initial severe anasarca with nephrotic range proteinuria as a stated above. This was subsequently controlled. Patient also had difficult to control hypertension. Part of the workup was an MRA which revealed left renal artery stenosis of more than 50%. Patient was then transferred to [facility] for further intervention. Patient was just there for a couple of days and it was decided that she will not benefit on renal artery angioplasty so she was discharged home. Her medications has been actively adjusted during this hospitalizations. Upon discharge patient said that she slowly gained weightwith a total of 19 pounds with worsening of lower extremity edema. She claims that she was taking her Bumex 1 mg in the morning and 0.5 mg at night. So upon admission patient was started on Lasix drip for the first 24 hours from which she responded very well. Currently her leg swelling is much better. On admission patient has a BUN of 27, creatinine 1.87 with EGFR of 28. Today she has a BUN of 24, creatinine 1.36 with estimated GFR 40. This is actually her baseline kidney function. In terms of her hypertension, all her medications were resumed and is currently her blood pressure is actually fairly controlled. She was further worked up at [facility] with 24-hour urine metanephrines, aldosterone and renin based on discharge records but results of which are currently not available. She also had an echocardiogram done there which showed ejection fraction of 60-65% and mild LVH. Past Medical History Cardiac Medical History: Reports: CHF-Diastolic, Heart Murmur - Moderate mitral regurgitation and aortic regurgitation, Hypertension-primary EENT Medical History: Reports: Cataracts Endocrine Medical History: Reports: Diabetes Mellitus Type 2 Complications of Diabetes: Reports: Gastroparesis, Nephropathy Renal/ Medical History: Reports: Chronic Kidney Disease Stage III, Nephrolithiasis, Proteinuria GI Medical History: Reports: Gastroesophageal Reflux Disease Musculoskeltal Medical History: Reports: Arthritis - BACK, Other - Chronic back pain status post back surgery x3 Past Surgical History Past Surgical History: Reports: Cholecystectomy, Orthopedic Surgery - back x3, Tonsillectomy, Tubal Ligation, Other - Ears Social History Information Source: Patient, [facility] Records Lives with: Family Smoking Status: Former Smoker Last Time Smoked: 2000 Frequency of Alcohol Use: Rare Hx Recreational Drug Use: No Drugs: None Hx Prescription Drug Abuse: No - Advance Directive Resuscitation Status: Full Code Family History Family History: CAD, Hypertension Parental Family History Reviewed: Yes Children Family History Reviewed: Yes Sibling(s) Family History Reviewed.: Yes Medication/Allergy Home Medications: Amlodipine Besylate [Norvasc 10 mg Tablet] 10 mg PO DAILY 09/29/18 Ascorbic Acid [C-1000] 1,000 mg PO DAILY 09/29/18 Cholecalciferol (Vitamin D3) [Vitamin D3 1000 Unit Tablet] 1,000 unit PO DAILY 09/29/18 Hydrocodone Bit/Acetaminophen [Hydrocodon-Acetaminophn 10-325] 1 tab PO Q6 09/29/18 Insulin Glargine,Hum.rec.anlog [Lantus Insulin 100 Unit/mL] 10 units SQ QHS 09/29/18 Insulin Lispro [Humalog Insulin (Lispro) 100 unit/mL] 0 unit SQ .SLIDING SCALE 09/29/18 Isosorbide Mononitrate [Imdur 30 mg Tablet.er] 30 mg PO QHS 09/29/18 Lisinopril [Prinivil 40 mg Tablet] 40 mg PO DAILY 09/29/18 Nebivolol HCl [Bystolic 5 mg Tablet] 5 mg PO DAILY 09/29/18 Omeprazole 40 mg PO QHS 09/29/18 Ondansetron HCl [Zofran 4 mg Tablet] 4 mg PO Q6HP PRN 09/29/18 Ferrous Sulfate [Feosol 325 mg Tablet] 325 mg PO DAILY 11/09/18 Promethazine HCl [Phenergan 25 mg Tablet] 25 mg PO Q6HP PRN 11/09/18 Allergies/Adverse Reactions: metaxalone [From Skelaxin] Allergy (Intermediate, Verified 09/03/18 12:13) Hives metformin Allergy (Intermediate, Verified 09/03/18 12:13) MUSCLE PAIN metoclopramide [From Reglan] Adverse Reaction (Severe, Verified 10/16/18 10:54) Dystonia Review of Systems All systems: reviewed and no additional remarkable complaints except as stated Review of Systems: Constitutional: ABSENT: chills, fatigue, fever(s), headache(s), weight loss; positive fluid weight gain on admission Eyes: ABSENT: visual disturbances Ears: ABSENT: hearing changes Cardiovascular: ABSENT: chest pain, dyspnea on exertion, orthropnea, palpitation s; admits edema Respiratory: ABSENT: cough, dyspnea, hemoptysis Gastrointestinal: ABSENT: abdominal pain, constipation, diarrhea, hematemesis, hematochezia; admits intermittent nausea, vomiting Genitourinary: ABSENT: dysuria, hematuria Musculoskeletal: ABSENT: joint swelling Integumentary: ABSENT: rash, wounds Neurological: ABSENT: abnormal gait, abnormal speech, confusion, dizziness, focal weakness, numbness, syncope Psychiatric: ABSENT: anxiety, depression Endocrine: ABSENT: cold intolerance, heat intolerance, polydipsia, polyuria Hematologic/Lymphatic: ABSENT: easy bleeding, easy bruising, lymphadenopathy Physical Exam Vital Signs: Temp Pulse Resp BP Pulse Ox 98.3 F 77 20 166/64 H 98 11/11/18 20:00 11/11/18 20:00 11/11/18 20:00 11/11/18 20:00 11/11/18 20:00 Intake & Output 11/10/18 11/11/18 11/12/18 06:59 06:59 06:59 Intake Total 350 1045 Output Total 1700 900 600 Balance -1350 -900 445 Weight 61.6 kg 62.7 kg Exam: General appearance: No acute distress, cooperative, well-developed, well- nourished Head exam: PRESENT: atraumatic, normocephalic Eye exam: PRESENT: Conjunctiva pale EOMI, PERRLA. ABSENT: conjunctival injection, scleral icterus Mouth exam: PRESENT: moist, neck supple, tongue midline Neck exam: PRESENT: full ROM. ABSENT: carotid bruit, JVD, lymphadenopathy, thyromegaly Respiratory exam: PRESENT: Diminished to auscultation bilaterally. ABSENT: rales, rhonchi, stridor, wheezes Cardiovascular exam: PRESENT: RRR, +S1, +S2. Grade 2/6 systolic murmur Pulses: PRESENT: normal radial pulses, normal dorsalis pedis pulses GI/Abdominal exam: PRESENT: normal bowel sounds, soft. ABSENT: guarding, mass, tenderness Rectal exam: Deferred Extremities exam: PRESENT: full ROM. ABSENT: calf tenderness, pedal edema Musculoskeletal: PRESENT: full ROM. ABSENT: deformity Neurological exam: PRESENT: alert, Awake, Oriented to person, Oriented to place, Oriented to time, reflexes normal, CN II-XII grossly intact. ABSENT: motor sensory deficit Psychiatric exam: PRESENT: appropriate affect, normal mood. ABSENT: homicidal ideation, suicidal ideation Skin exam: PRESENT: intact, dry, warm. ABSENT: rash Results Laboratory Results: 11/11/18 03:52 11/11/18 03:52 11/11/18 11/11/18 03:52 03:52 WBC 7.0 RBC 3.47 L Hgb 10.0 L Hct 28.6 L MCV 82 MCH 28.9 MCHC 35.1 RDW 14.0 Plt Count 123 L Sodium 139.7 Potassium 3.5 L Chloride 104 Carbon Dioxide 30 Anion Gap 6 BUN 24 H Creatinine 1.36 H Est GFR ( Amer) 49 L Est GFR (Non-Af Amer) 40 L Glucose 123 H Calcium 8.3 L Magnesium 1.7 11/08/18 11/09/18 11/09/18 19:00 03:53 03:53 Creatine Kinase 74 CK-MB (CK-2) 0.86 Troponin I < 0.012 NT-Pro-B Natriuret Pep 3420 H 11/09/18 11/09/18 11/09/18 09:28 09:28 15:22 Creatine Kinase 62 51 CK-MB (CK-2) 0.62 Troponin I < 0.012 NT-Pro-B Natriuret Pep 11/09/18 15:22 Creatine Kinase CK-MB (CK-2) 0.74 Troponin I < 0.012 NT-Pro-B Natriuret Pep Assessment & Plan - Diagnosis (1) Acute kidney injury superimposed on chronic kidney disease Is this a current diagnosis for this admission?: Yes Plan: Is likely secondary to prerenal factors with exacerbation of congestive heart failure. Kidney function is currently now at baseline after effective diuresis. (2) Chronic kidney disease (CKD), stage III (moderate) Is this a current diagnosis for this admission?: Yes Plan: This is due to diabetic nephropathy by kidney biopsy. This is associated with nephrotic range proteinuria. (3) Diabetic nephropathy Is this a current diagnosis for this admission?: Yes Plan: Continue losartan. (4) Hypertension Qualifiers: Hypertension type: essential hypertension Qualified Code(s): I10 - Essential (primary) hypertension Is this a current diagnosis for this admission?: Yes Plan: I think there are multiple factors affecting patient's blood pressure which include a baseline essential hypertension, left renal artery stenosis, chronic kidney disease, and fluid retention to name a few. Workup done in [facility] including 24-hour urine to check for adrenal hormones. We will try to obtain results from [facility]. At this point the patient's blood pressure is actually much improved compared to what she has been last month. Continue the same current medication regimen. At one point the patient needs to be resumed with the maintenance diuretics to prevent recurrence of lower extremity edema that may further increase blood pressure. (5) Diabetes mellitus type 2 in nonobese Is this a current diagnosis for this admission?: Yes (6) Diabetic gastroparesis Is this a current diagnosis for this admission?: Yes (7) Acute on chronic diastolic (congestive) heart failure Is this a current diagnosis for this admission?: Yes Plan: Currently improved and compensated. - Notes Notes: Thank you very much for this consultation. - Time Time Spent: 50 to 70 Minutes
--- NOTE | 2018-11-11 23:28 | PDOC PROGRESS REPORT ---
Subjective Progress Note for:: 11/11/18 Subjective:: 58 Y.O. admitted for acute on chronic diastolic heart failure, CKD and poorly controlled HTN. This patient is well known to the hospitalist service. The patient reports N/V overnight, none this morning after receiving phenergan and Zofran. The patient remains mildly hypertensive, but likely that the patient lives at a blood pressure this high. Abd s/nt/nd. Lungs clear. no evidence of peripheral edema, maybe trace below the knees. Reason For Visit: ACUTE ON CHRONIC DIASTOLIC CONGESTIVE HEART FAILUR Physical Exam Vital Signs: Temp Pulse Resp BP Pulse Ox 98.3 F 77 20 166/64 H 98 11/11/18 20:00 11/11/18 20:00 11/11/18 20:00 11/11/18 20:00 11/11/18 20:00 Intake & Output 11/10/18 11/11/18 11/12/18 06:59 06:59 06:59 Intake Total 350 1045 Output Total 1700 900 600 Balance -1350 -900 445 Weight 61.6 kg 62.7 kg General appearance: PRESENT: no acute distress, thin Eye exam: PRESENT: conjunctiva pale Mouth exam: PRESENT: moist, tongue midline Neck exam: PRESENT: full ROM Respiratory exam: PRESENT: clear to auscultation joshua, symmetrical, unlabored Cardiovascular exam: PRESENT: RRR Pulses: PRESENT: normal radial pulses, +1 pedal pulses bilateral GI/Abdominal exam: PRESENT: normal bowel sounds, soft. ABSENT: tenderness Rectal exam: PRESENT: deferred Extremities exam: PRESENT: full ROM Musculoskeletal exam: PRESENT: ambulatory, full ROM Neurological exam: PRESENT: alert, awake, oriented to person, oriented to place, oriented to time, oriented to situation Psychiatric exam: PRESENT: appropriate affect Skin exam: PRESENT: dry, intact Results Laboratory Results: 11/11/18 03:52 11/11/18 03:52 11/11/18 11/11/18 03:52 03:52 WBC 7.0 RBC 3.47 L Hgb 10.0 L Hct 28.6 L MCV 82 MCH 28.9 MCHC 35.1 RDW 14.0 Plt Count 123 L Sodium 139.7 Potassium 3.5 L Chloride 104 Carbon Dioxide 30 Anion Gap 6 BUN 24 H Creatinine 1.36 H Est GFR ( Amer) 49 L Est GFR (Non-Af Amer) 40 L Glucose 123 H Calcium 8.3 L Magnesium 1.7 11/08/18 11/09/18 11/09/18 19:00 03:53 03:53 Creatine Kinase 74 CK-MB (CK-2) 0.86 Troponin I < 0.012 NT-Pro-B Natriuret Pep 3420 H 11/09/18 11/09/18 11/09/18 09:28 09:28 15:22 Creatine Kinase 62 51 CK-MB (CK-2) 0.62 Troponin I < 0.012 NT-Pro-B Natriuret Pep 11/09/18 15:22 Creatine Kinase CK-MB (CK-2) 0.74 Troponin I < 0.012 NT-Pro-B Natriuret Pep Status: Imported from PACS Assessment & Plan - Diagnosis (1) Acute kidney injury superimposed on chronic kidney disease Is this a current diagnosis for this admission?: Yes Plan: Appreciate Dr. Grady recommendations Kidney function is currently now at baseline after effective diuresis. (2) Acute kidney injury Is this a current diagnosis for this admission?: Yes Plan: Appreciate Dr. Nichols's recommendations Prerenal secondary to heart failure (3) Hypertension Qualifiers: Hypertension type: essential hypertension Qualified Code(s): I10 - Essential (primary) hypertension Is this a current diagnosis for this admission?: Yes Plan: BP better controlled over last 24 hours after re-starting home medications inclduing Norvasc, Imdur, Aldactone. Also has been on Toprol XL and Cozaar for CHF UA from 11/09 shows evidence of protein loss. Obtain records from [facility] regarding 24hr urine (4) Diabetes Qualifiers: Diabetes mellitus complication status: without complication Is this a current diagnosis for this admission?: Yes Plan: well controlled on sliding scale (5) Nausea and vomiting Qualifiers: Vomiting type: bilious vomiting Qualified Code(s): R11.14 - Bilious vomiting Is this a current diagnosis for this admission?: Yes Plan: prn antiemetics patient reports relief when she receives zofran and phenergran together - Time Time Spent with patient: 15-24 minutes Smoking Cessation Education: 3 to 10 minutes Medications reviewed and adjusted accordingly: Yes Anticipated discharge: Home - Inpatient Certification Based on my medical assessment, after consideration of the patient's co morbidities, presenting symptoms, or acuity I expect that the services needed warrant INPATIENT care.: Yes I certify that my determination is in accordance with my understanding of Medicare's requirements for reasonable and necessary INPATIENT services [42 CFR 412.3e].: Yes Medical Necessity: Risk of Complication if Not Cared For in Hospital
[2018-11-12] MEDS: HYDRALAZINE HCL INJ/PF 20 MG/1 ML SDV IV PRN (00:01)
[2018-11-12] MEDS: ONDANSETRON HCL INJ/PF 4 MG/2 ML SDV IV PRN ×2 (03:12→08:51)
[2018-11-12] MEDS: PROMETHAZINE HCL 25 MG TABLET PO PRN (03:46)
[2018-11-12 04:49] LABS: HEMATOCRIT 26.9 % (36.0-47.0); HEMOGLOBIN 9.7 g/dL (12.0-15.5); MEAN CORPUSCULAR HEMOGLOBIN 29.5 pg (27.0-33.4); MEAN CORPUSCULAR HGB CONC 35.9 g/dL (32.0-36.0); MEAN CORPUSCULAR VOLUME 82 fl (80-97); PLATELET COUNT 122 10^3/uL (150-450); RED BLOOD COUNT 3.27 10^6/uL (3.72-5.28); RED CELL DISTRIBUTION WIDTH 13.9 % (11.5-14.0); WHITE BLOOD COUNT 6.7 10^3/uL (4.0-10.5)
[2018-11-12 05:21] LABS: BLOOD UREA NITROGEN 24 mg/dL (7-20); CALCIUM 8.3 mg/dL (8.4-10.2); CARBON DIOXIDE 28 mmol/L (22-30); GLUCOSE 140 mg/dL (75-110); POTASSIUM 3.7 mmol/L (3.6-5.0)
[2018-11-12 05:28] LABS: CHLORIDE 110 mmol/L (98-107); SODIUM 140.4 mmol/L (137-145)
[2018-11-12 05:30] LABS: ANION GAP 2 (5-19)
[2018-11-12] MEDS: LANSOPRAZOLE 30 MG TAB.RAP.DR PO SCH ×2 (05:38→16:21)
[2018-11-12] MEDS: HEPARIN SOD (PORCINE) 5,000 UNIT/ML 1 ML SYRINGE SUBCUT SCH ×3 (05:39→21:55)
[2018-11-12] MEDS: ASCORBIC ACID 500 MG TABLET PO SCH (09:56)
[2018-11-12] MEDS: METOPROLOL SUCCINATE 50 MG TAB.SR.24H PO SCH (09:56)
[2018-11-12] MEDS: OXYCODONE HCL IR 5 MG TABLET PO PRN ×3 (09:56→23:14)
[2018-11-12] MEDS: CHOLECALCIFEROL (D3) 1,000 UNIT TABLET PO SCH (09:57)
[2018-11-12] MEDS: SPIRONOLACTONE 25 MG TABLET PO SCH (09:57)
[2018-11-12] MEDS: LOSARTAN POTASSIUM 50 MG TABLET PO SCH (09:57)
[2018-11-12] MEDS: MAGNESIUM HYDROXIDE SUSP 30 ML UDCUP PO SCH ×2 (09:57→17:26)
[2018-11-12] MEDS: AMLODIPINE BESYLATE 10 MG TABLET PO SCH (09:57)
[2018-11-12] MEDS: DOCUSATE SODIUM 100 MG CAPSULE PO SCH ×2 (09:57→17:26)
[2018-11-12] MEDS: INSULIN REG, HUMAN 100 UNIT/ML 3 ML VIAL (PYX) SUBCUT PRN ×2 (13:45→16:28)
--- NOTE | 2018-11-12 18:42 | PDOC PROGRESS REPORT ---
Subjective Progress Note for:: 11/12/18 Subjective:: The patient is resting in her bed. She reports no overnight complaints. She states she still has some swelling in her lower extremities and she still feels somewhat short of breath. She feels as if she needs further diuresis. She has had no fever or shaking chills overnight. No chest pain or heart palpitations. No nausea or vomiting today but she did have some vomiting overnight. No abdominal pain today. No urinary complaints Reason For Visit: ACUTE ON CHRONIC DIASTOLIC CONGESTIVE HEART FAILUR Physical Exam Vital Signs: Temp Pulse Resp BP Pulse Ox 97.8 F 72 16 161/57 H 98 11/12/18 15:30 11/12/18 15:30 11/12/18 15:30 11/12/18 15:30 11/12/18 15:30 Intake & Output 11/11/18 11/12/18 11/13/18 06:59 06:59 06:59 Intake Total 1400 710 Output Total 900 1150 700 Balance -900 250 10 Weight 62.7 kg 64.1 kg General appearance: PRESENT: thin, other - Somewhat ill-appearing Head exam: PRESENT: atraumatic, normocephalic Respiratory exam: PRESENT: crackles. ABSENT: rales, rhonchi, wheezes Cardiovascular exam: PRESENT: RRR. ABSENT: diastolic murmur, rubs, systolic murmur Pulses: PRESENT: normal dorsalis pedis pul GI/Abdominal exam: PRESENT: normal bowel sounds, soft. ABSENT: distended, guarding, mass, organolmegaly, rebound, tenderness Rectal exam: PRESENT: deferred Extremities exam: PRESENT: +1 edema Neurological exam: PRESENT: alert, awake, oriented to person, oriented to place, oriented to time, oriented to situation, CN II-XII grossly intact. ABSENT: motor sensory deficit Psychiatric exam: PRESENT: appropriate affect, normal mood. ABSENT: homicidal ideation, suicidal ideation Skin exam: PRESENT: dry, intact, warm. ABSENT: cyanosis, rash Results Laboratory Results: 11/12/18 04:07 11/12/18 04:07 11/12/18 11/12/18 04:07 04:07 WBC 6.7 RBC 3.27 L Hgb 9.7 L Hct 26.9 L MCV 82 MCH 29.5 MCHC 35.9 RDW 13.9 Plt Count 122 L Sodium 140.4 Potassium 3.7 Chloride 110 H Carbon Dioxide 28 Anion Gap 2 L BUN 24 H Creatinine 1.53 H Est GFR ( Amer) 42 L Est GFR (Non-Af Amer) 35 L Glucose 140 H Calcium 8.3 L Magnesium 2.1 11/08/18 11/09/18 11/09/18 19:00 03:53 03:53 Creatine Kinase 74 CK-MB (CK-2) 0.86 Troponin I < 0.012 NT-Pro-B Natriuret Pep 3420 H 11/09/18 11/09/18 11/09/18 09:28 09:28 15:22 Creatine Kinase 62 51 CK-MB (CK-2) 0.62 Troponin I < 0.012 NT-Pro-B Natriuret Pep 11/09/18 15:22 Creatine Kinase CK-MB (CK-2) 0.74 Troponin I < 0.012 NT-Pro-B Natriuret Pep Assessment & Plan - Diagnosis (1) Acute on chronic renal failure Is this a current diagnosis for this admission?: Yes Plan: Likely multifactorial secondary to hypertensive emergency as well as her worsening diabetes. Renal function is somewhat improved (2) Hypertensive emergency Is this a current diagnosis for this admission?: Yes Plan: Blood pressure is still quite high. Continue metoprolol, losartan and amlodipine. I am going to add hydralazine p.o. to her regimen as well. (3) Acute on chronic diastolic (congestive) heart failure Is this a current diagnosis for this admission?: Yes Plan: She feels as if she needs further diuresis. I will give her a one-time dose of 20 mg of IV Lasix today to see if this will help (4) Thrombocytopenia Is this a current diagnosis for this admission?: Yes Plan: Stable (5) Anemia Qualifiers: Anemia type: iron deficiency Iron deficiency anemia type: inadequate dietary iron intake Qualified Code(s): D50.8 - Other iron deficiency anemias Is this a current diagnosis for this admission?: Yes Plan: Stable. Related to her underlying diabetes (6) Diabetic gastroparesis Is this a current diagnosis for this admission?: Yes Plan: Stable for now. She is tolerating her diet today (7) Gastroesophageal reflux disease Qualifiers: Esophagitis presence: without esophagitis Qualified Code(s): K21.9 - Gas tro-esophageal reflux disease without esophagitis Is this a current diagnosis for this admission?: Yes Plan: Continue PPI - Time Time Spent with patient: 25-34 minutes - Inpatient Certification Medical Necessity: Other - Inpatient hospitalization remains necessary. I would give the patient some IV Lasix today. We are going to recheck labs tomorrow. I believe she is getting to the point that we are reaching maximum hospital benefit. I am going to add an additional blood pressure medication today. Hopefully she can get out of the hospital in the next several days.
[2018-11-12] MEDS ORDERED: FUROSEMIDE INJ/PF 20 MG/2 ML SDV IV ONE (20:30)
[2018-11-12] MEDS: HYDRALAZINE HCL 25 MG TABLET PO SCH (21:57)
[2018-11-12] MEDS: ISOSORBIDE MONONITRATE 30 MG TAB.ER.24H PO SCH (21:57)
[2018-11-12] MEDS: ATORVASTATIN CALCIUM 40 MG TABLET PO SCH (21:58)
[2018-11-12] MEDS: OMEPRAZOLE 40MG CAPSULE PO SCH (21:59)
[2018-11-12] MEDS: INSULIN GLARGINE,HUM.REC.ANLOG 300 UNIT/3 ML INSULN.PEN SUBCUT SCH (22:05)
--- NOTE | 2018-11-12 22:06 | PDOC PROGRESS REPORT ---
Subjective Progress Note for:: 11/12/18 Subjective:: Patient is doing fine. Still has episodes of vomiting especially at night. Still requires as needed IV dose of hydralazine occasionally for blood pressure. Otherwise does not have any other complaints. Reason For Visit: ACUTE ON CHRONIC DIASTOLIC CONGESTIVE HEART FAILUR Physical Exam Vital Signs: Temp Pulse Resp BP Pulse Ox 97.8 F 74 16 161/57 H 98 11/12/18 15:30 11/12/18 19:00 11/12/18 15:30 11/12/18 15:30 11/12/18 15:30 Intake & Output 11/11/18 11/12/18 11/13/18 06:59 06:59 06:59 Intake Total 1400 710 Output Total 900 1150 700 Balance -900 250 10 Weight 62.7 kg 64.1 kg Exam: General appearance: PRESENT: no acute distress, cooperative, well-developed, well-nourished Head exam: PRESENT: atraumatic, normocephalic Eye exam: PRESENT: conjunctiva pink, PERRLA. ABSENT: scleral icterus Neck exam: ABSENT: JVD Respiratory exam: PRESENT: Normal breath sounds. ABSENT: crackles, rales, rhonchi, unlabored, wheezes Cardiovascular exam: PRESENT: Regular rate rhythm -+S1, +S2. Grade 2/6 systolic murmur ABSENT: diastolic murmur GI/Abdominal exam: PRESENT: normal bowel sounds, soft. ABSENT: guarding, mass, tenderness Extremities exam: ABSENT: No edema Neurological exam: PRESENT: alert, awake, oriented to person, place and time. Skin exam: PRESENT: dry, warm, Results Laboratory Results: 11/12/18 04:07 11/12/18 04:07 11/12/18 11/12/18 04:07 04:07 WBC 6.7 RBC 3.27 L Hgb 9.7 L Hct 26.9 L MCV 82 MCH 29.5 MCHC 35.9 RDW 13.9 Plt Count 122 L Sodium 140.4 Potassium 3.7 Chloride 110 H Carbon Dioxide 28 Anion Gap 2 L BUN 24 H Creatinine 1.53 H Est GFR ( Amer) 42 L Est GFR (Non-Af Amer) 35 L Glucose 140 H Calcium 8.3 L Magnesium 2.1 11/08/18 11/09/18 11/09/18 19:00 03:53 03:53 Creatine Kinase 74 CK-MB (CK-2) 0.86 Troponin I < 0.012 NT-Pro-B Natriuret Pep 3420 H 11/09/18 11/09/18 11/09/18 09:28 09:28 15:22 Creatine Kinase 62 51 CK-MB (CK-2) 0.62 Troponin I < 0.012 NT-Pro-B Natriuret Pep 11/09/18 15:22 Creatine Kinase CK-MB (CK-2) 0.74 Troponin I < 0.012 NT-Pro-B Natriuret Pep Assessment & Plan - Diagnosis (1) Acute kidney injury superimposed on chronic kidney disease Is this a current diagnosis for this admission?: Yes Plan: Currently improved and at baseline. (2) Chronic kidney disease (CKD), stage III (moderate) Is this a current diagnosis for this admission?: Yes Plan: Due to biopsy-proven diabetic nephropathy. (3) Diabetic nephropathy Is this a current diagnosis for this admission?: Yes Plan: Nephrotic range proteinuria. (4) Hypertension Qualifiers: Hypertension type: essential hypertension Qualified Code(s): I10 - Essential (primary) hypertension Is this a current diagnosis for this admission?: Yes Plan: Multifactorial causes to include essential hypertension, renal artery stenosis, chronic kidney disease, and psychological factors. Awaiting for the results of 24-hour urine collection from [facility]. The patient is still requiring IV hydralazine, I recommended the patient get started with oral hydralazine low-dose. Resume Bumex 1 mg p.o. daily adjust accordingly. Continue all other medications. (5) Diabetes mellitus type 2 in nonobese Is this a current diagnosis for this admission?: Yes (6) Diabetic gastroparesis Is this a current diagnosis for this admission?: Yes (7) Acute on chronic diastolic (congestive) heart failure Is this a current diagnosis for this admission?: Yes - Time Time with patient: 15-25 minutes
[2018-11-13] MEDS: HYDRALAZINE HCL INJ/PF 20 MG/1 ML SDV IV PRN (04:38)
[2018-11-13] MEDS: ONDANSETRON HCL INJ/PF 4 MG/2 ML SDV IV PRN (05:16)
[2018-11-13] MEDS: HEPARIN SOD (PORCINE) 5,000 UNIT/ML 1 ML SYRINGE SUBCUT SCH ×3 (05:16→21:04)
[2018-11-13] MEDS: HYDRALAZINE HCL 25 MG TABLET PO SCH ×3 (05:17→21:05)
[2018-11-13] MEDS: LANSOPRAZOLE 30 MG TAB.RAP.DR PO SCH ×2 (05:17→17:30)
[2018-11-13] MEDS: PROMETHAZINE HCL 25 MG TABLET PO PRN (06:30)
[2018-11-13 08:08] LABS: ABSOLUTE EOSINOPHILS # (AUTO) 0.1 10^3/uL (0.0-0.6); ABSOLUTE LYMPHOCYTES (AUTO) 1.5 10^3/uL (0.5-4.7); ABSOLUTE MONOCYTES (AUTO) 0.6 10^3/uL (0.1-1.4); ABSOLUTE NEUT (AUTO) 4.7 10^3/uL (1.7-8.2); BASOPHILS % (AUTO) 0.5 % (0-2); HEMATOCRIT 29.2 % (36.0-47.0); HEMOGLOBIN 10.3 g/dL (12.0-15.5); LYMPHOCYTES % (AUTO) 21.9 % (13-45); MEAN CORPUSCULAR HEMOGLOBIN 29.1 pg (27.0-33.4); MEAN CORPUSCULAR HGB CONC 35.3 g/dL (32.0-36.0); MEAN CORPUSCULAR VOLUME 82 fl (80-97); MONOCYTES % (AUTO) 8.8 % (3-13); PLATELET COUNT 142 10^3/uL (150-450); RED BLOOD COUNT 3.54 10^6/uL (3.72-5.28); RED CELL DISTRIBUTION WIDTH 13.9 % (11.5-14.0); SEGMENTED NEUTROPHILS % (AUTO) 66.8 % (42-78); TOTAL CELLS COUNTED % (AUTO) 100 %; WHITE BLOOD COUNT 7.1 10^3/uL (4.0-10.5)
[2018-11-13 08:30] LABS: ALANINE AMINOTRANSFERASE 23 U/L (9-52); ALBUMIN 2.9 g/dL (3.5-5.0); ALKALINE PHOSPHATASE 80 U/L (38-126); ANION GAP 5 (5-19); ASPARTATE AMINO TRANSFERASE 22 U/L (14-36); BILIRUBIN,DIRECT 0.2 mg/dL (0.0-0.4); BILIRUBIN,TOTAL 0.3 mg/dL (0.2-1.3); BLOOD UREA NITROGEN 21 mg/dL (7-20); CALCIUM 8.5 mg/dL (8.4-10.2); CARBON DIOXIDE 29 mmol/L (22-30); CHLORIDE 105 mmol/L (98-107); GLUCOSE 104 mg/dL (75-110); POTASSIUM 4.1 mmol/L (3.6-5.0); SODIUM 139.4 mmol/L (137-145); TOTAL PROTEIN 4.6 g/dL (6.3-8.2)
[2018-11-13] MEDS: DOCUSATE SODIUM 100 MG CAPSULE PO SCH ×2 (09:07→17:29)
[2018-11-13] MEDS: METOPROLOL SUCCINATE 50 MG TAB.SR.24H PO SCH (09:07)
[2018-11-13] MEDS: LOSARTAN POTASSIUM 50 MG TABLET PO SCH (09:07)
[2018-11-13] MEDS: SPIRONOLACTONE 25 MG TABLET PO SCH (09:07)
[2018-11-13] MEDS: MAGNESIUM HYDROXIDE SUSP 30 ML UDCUP PO SCH ×2 (09:07→17:30)
[2018-11-13] MEDS: ASCORBIC ACID 500 MG TABLET PO SCH (09:07)
[2018-11-13] MEDS: CHOLECALCIFEROL (D3) 1,000 UNIT TABLET PO SCH (09:08)
[2018-11-13] MEDS: AMLODIPINE BESYLATE 10 MG TABLET PO SCH (09:08)
[2018-11-13] MEDS ORDERED: BUMETANIDE 1 MG TABLET PO SCH (10:00)
[2018-11-13] MEDS: INSULIN REG, HUMAN 100 UNIT/ML 3 ML VIAL (PYX) SUBCUT PRN (12:31)
[2018-11-13] MEDS: OXYCODONE HCL IR 5 MG TABLET PO PRN ×2 (14:20→21:03)
--- NOTE | 2018-11-13 17:09 | PDOC PROGRESS REPORT ---
Subjective Progress Note for:: 11/13/18 Subjective:: This is 58 years old female patient with multiple comorbidities including diastolic congestive heart failure, hypertension, diabetes mellitus and gastroparesis, stage III CKD and diabetes mellitus presented with chief complaint of bilateral leg swelling while she is getting Bumex. At admission her creatinine was 1.85 today it is trended down to 1.42. Her leg swelling has been subsiding. She is being followed by Dr. Nichols. I seen this patient this morning resting in bed comfortably she does not have any new complaint. Reason For Visit: ACUTE ON CHRONIC DIASTOLIC CONGESTIVE HEART FAILUR Physical Exam Vital Signs: Temp Pulse Resp BP Pulse Ox 98.1 F 76 14 161/53 H 95 11/13/18 11:34 11/13/18 11:34 11/13/18 11:34 11/13/18 11:34 11/13/18 11:34 Intake & Output 11/12/18 11/13/18 11/14/18 06:59 06:59 06:59 Intake Total 1400 950 236 Output Total 1150 2000 425 Balance 250 -1050 -189 Weight 64.1 kg General appearance: PRESENT: no acute distress Head exam: PRESENT: atraumatic Mouth exam: PRESENT: moist Neck exam: ABSENT: carotid bruit, JVD, lymphadenopathy, thyromegaly Respiratory exam: PRESENT: clear to auscultation joshua. ABSENT: rales, rhonchi, wheezes Cardiovascular exam: PRESENT: systolic murmur GI/Abdominal exam: PRESENT: normal bowel sounds, soft. ABSENT: distended, guarding, mass, organolmegaly, rebound, tenderness Extremities exam: PRESENT: +1 edema Neurological exam: PRESENT: alert, awake, oriented to time, oriented to situation Results Laboratory Results: 11/13/18 06:59 11/13/18 06:59 11/13/18 11/13/18 06:59 06:59 WBC 7.1 RBC 3.54 L Hgb 10.3 L Hct 29.2 L MCV 82 MCH 29.1 MCHC 35.3 RDW 13.9 Plt Count 142 L Seg Neutrophils % 66.8 Lymphocytes % 21.9 Monocytes % 8.8 Eosinophils % 2.0 Basophils % 0.5 Absolute Neutrophils 4.7 Absolute Lymphocytes 1.5 Absolute Monocytes 0.6 Absolute Eosinophils 0.1 Absolute Basophils 0.0 Sodium 139.4 Potassium 4.1 Chloride 105 Carbon Dioxide 29 Anion Gap 5 BUN 21 H Creatinine 1.42 H Est GFR ( Amer) 46 L Est GFR (Non-Af Amer) 38 L Glucose 104 Calcium 8.5 Magnesium 2.7 H Total Bilirubin 0.3 AST 22 ALT 23 Alkaline Phosphatase 80 Total Protein 4.6 L Albumin 2.9 L 11/08/18 11/09/18 11/09/18 19:00 03:53 03:53 Creatine Kinase 74 CK-MB (CK-2) 0.86 Troponin I < 0.012 NT-Pro-B Natriuret Pep 3420 H 11/09/18 11/09/18 11/09/18 09:28 09:28 15:22 Creatine Kinase 62 51 CK-MB (CK-2) 0.62 Troponin I < 0.012 NT-Pro-B Natriuret Pep 11/09/18 15:22 Creatine Kinase CK-MB (CK-2) 0.74 Troponin I < 0.012 NT-Pro-B Natriuret Pep Assessment & Plan - Diagnosis (1) Acute on chronic diastolic CHF (congestive heart failure) Is this a current diagnosis for this admission?: Yes Plan: Patient is being diuresed cautiously with Lasix and Bumex. (2) ISAEL on CKD stage III Is this a current diagnosis for this admission?: Yes Plan: Her creatinine is trending down and she is being followed by Dr. Nichols. (3) Type 2 diabetes mellitus Is this a current diagnosis for this admission?: Yes Plan: Complicated by gastroparesis, and diabetic nephropathy. Continue current regimen (4) Hypertensive emergency Is this a current diagnosis for this admission?: Yes Plan: Her blood pressure is stable now.
[2018-11-13] MEDS: ATORVASTATIN CALCIUM 40 MG TABLET PO SCH (21:03)
[2018-11-13] MEDS: ISOSORBIDE MONONITRATE 30 MG TAB.ER.24H PO SCH (21:04)
[2018-11-13] MEDS: INSULIN GLARGINE,HUM.REC.ANLOG 300 UNIT/3 ML INSULN.PEN SUBCUT SCH (21:04)
[2018-11-13] MEDS: OMEPRAZOLE 40MG CAPSULE PO SCH (21:05)
[2018-11-14] MEDS: HYDRALAZINE HCL INJ/PF 20 MG/1 ML SDV IV PRN (03:49)
[2018-11-14] MEDS: LANSOPRAZOLE 30 MG TAB.RAP.DR PO SCH (05:00)
[2018-11-14] MEDS: HEPARIN SOD (PORCINE) 5,000 UNIT/ML 1 ML SYRINGE SUBCUT SCH (05:00)
[2018-11-14] MEDS: HYDRALAZINE HCL 25 MG TABLET PO SCH (05:03)
[2018-11-14] MEDS: ONDANSETRON HCL INJ/PF 4 MG/2 ML SDV IV PRN (06:12)
--- NOTE | 2018-11-14 08:31 | PDOC DISCHARGE SUMMARY ---
General - Admit/Disc Date/PCP Admission Date/Primary Care Provider: 11/09/18 04:00 AJITH JONES MD Discharge Date: 11/14/18 - Discharge Diagnosis (1) Acute on chronic diastolic CHF (congestive heart failure) Is this a current diagnosis for this admission?: Yes (2) ISAEL on CKD stage III Is this a current diagnosis for this admission?: Yes (3) Type 2 diabetes mellitus Is this a current diagnosis for this admission?: Yes (4) Hypertensive emergency Is this a current diagnosis for this admission?: Yes - Additional Information Resuscitation Status: Full Code Discharge Diet: Cardiac, Diabetic, Other (Comments) Discharge Activity: Activity As Tolerated, Balance Activity w/Rest, Weigh Daily Home Medications: Amlodipine Besylate [Norvasc 10 mg Tablet] 10 mg PO DAILY 09/29/18 Ascorbic Acid [C-1000] 1,000 mg PO DAILY 09/29/18 Cholecalciferol (Vitamin D3) [Vitamin D3 1000 Unit Tablet] 1,000 unit PO DAILY 09/29/18 Hydrocodone Bit/Acetaminophen [Hydrocodon-Acetaminophn 10-325] 1 tab PO Q6 09/29/18 Insulin Glargine,Hum.rec.anlog [Lantus Insulin 100 Unit/mL] 10 units SQ QHS 09/29/18 Insulin Lispro [Humalog Insulin (Lispro) 100 unit/mL] 0 unit SQ .SLIDING SCALE 09/29/18 Isosorbide Mononitrate [Imdur 30 mg Tablet.er] 30 mg PO QHS 09/29/18 Lisinopril [Prinivil 40 mg Tablet] 40 mg PO DAILY 09/29/18 Nebivolol HCl [Bystolic 5 mg Tablet] 5 mg PO DAILY 09/29/18 Omeprazole 40 mg PO QHS 09/29/18 Ondansetron HCl [Zofran 4 mg Tablet] 4 mg PO Q6HP PRN 09/29/18 Ferrous Sulfate [Feosol 325 mg Tablet] 325 mg PO DAILY 11/09/18 Promethazine HCl [Phenergan 25 mg Tablet] 25 mg PO Q6HP PRN 11/09/18 History of Present Illness History of Present Illness: JASMIN MURDOCK is a 58 year old female who presents the emergency room with a 2-week history of worsening swelling of her lower extremities. Patient admits that she was discharged from [facility] 13 days ago and since that time she has gradually gained 19 pounds with progressively worsening swelling of her lower extremities. She has been taking her medications as instructed since the time she left [facility] but has noted decreased urine output despite diuretic therapy. She denies associated symptoms specifically dyspnea, diaphoresis, chest pain and palpitations. She admits to continued chronic nausea and vomiting secondary to her gastroparesis, but this is unchanged from her long-standing chronic disease. She admits to similar prior episodes with exacerbations of her heart failure and she has not identified any aggravating or ameliorating factors for her peripheral edema. In the emergency room she was noted to have a significantly elevated BNP and a creatinine that was nearly double the value of her previous creatinine approximately 1 month ago. With acute kidney injury and an acute exacerbation of her congestive heart failure it was felt that the patient may best be served by being able to be evaluated and treated by a recreational director. There is no nephrology available at this time at our hospital and it would be Sunday before patient could be seen in consultation. However she does not wish to be transferred to any facility other than [facility] which is on diversion and the patient obviously needs to be treated. I have discussed with her my willingness to initiate appropriate therapy and make appropriate changes in her medications to which she has responded positively and admission will be undertaken. Hospital Course Hospital Course: This is 58 years old female patient with multiple comorbidities including diastolic congestive heart failure, hypertension, diabetes mellitus and gastroparesis, stage III CKD and diabetes mellitus presented with chief c omplaint of bilateral leg swelling while she is getting Bumex. Patient has history of recurrent admission for the same problem. Her creatinine is trending down. Her leg swelling has subsided. She is being followed by Dr. Nichols. Patient complains of left ear discharge and on otoscope examination I seen yellowish pussy material. Patient has been started on Cipro. Drop and patient advised to see ENT doctor. This morning I seen patient sitting by the bedside and enjoying her breakfast. She is awake alert and oriented. She is not in pain or distress. Patient is stable enough for discharge today and follow-up with her primary recreational director. Physical Exam Vital Signs: Temp Pulse Resp BP Pulse Ox 98.0 F 74 20 124/43 L 98 11/14/18 03:27 11/14/18 03:27 11/14/18 03:27 11/14/18 05:04 11/14/18 03:27 Intake & Output 11/13/18 11/14/18 11/15/18 06:59 06:59 06:59 Intake Total 950 591 Output Total 7587 1725 Balance -1050 -1134 Weight 62.5 kg General appearance: PRESENT: no acute distress Head exam: PRESENT: atraumatic Eye exam: PRESENT: conjunctiva pink Mouth exam: PRESENT: moist Neck exam: ABSENT: carotid bruit, JVD, lymphadenopathy, thyromegaly Respiratory exam: PRESENT: clear to auscultation joshua. ABSENT: rales, rhonchi, wheezes Cardiovascular exam: PRESENT: RRR. ABSENT: diastolic murmur, rubs, systolic murmur GI/Abdominal exam: PRESENT: normal bowel sounds, soft. ABSENT: distended, guarding, mass, organolmegaly, rebound, tenderness Neurological exam: PRESENT: alert, awake, oriented to time, oriented to situation Results Laboratory Results: 11/13/18 06:59 11/13/18 06:59 11/13/18 06:59 Sodium 139.4 Potassium 4.1 Chloride 105 Carbon Dioxide 29 Anion Gap 5 BUN 21 H Creatinine 1.42 H Est GFR ( Amer) 46 L Est GFR (Non-Af Amer) 38 L Glucose 104 Calcium 8.5 Magnesium 2.7 H Total Bilirubin 0.3 AST 22 ALT 23 Alkaline Phosphatase 80 Total Protein 4.6 L Albumin 2.9 L 11/08/18 11/09/18 11/09/18 19:00 03:53 03:53 Creatine Kinase 74 CK-MB (CK-2) 0.86 Troponin I < 0.012 NT-Pro-B Natriuret Pep 3420 H 11/09/18 11/09/18 11/09/18 09:28 09:28 15:22 Creatine Kinase 62 51 CK-MB (CK-2) 0.62 Troponin I < 0.012 NT-Pro-B Natriuret Pep 11/09/18 15:22 Creatine Kinase CK-MB (CK-2) 0.74 Troponin I < 0.012 NT-Pro-B Natriuret Pep Qualifiers - * PATIENT BEING DISCHARGED WITH ANY OF THE FOLLOWING DIAGNOSIS: Heart Failure VTE patient discharged on overlapping Therapy?: No Reason(s) for not prescribing Overlap Therapy:: Not indicated Stroke Pt being discharged on Anti-thrombolytic therapy?: No Reason(s) for not prescribing Anti-thrombolytic therapy:: Not indicated Stroke Pt being discharged on Anti-coagulation therapy?: No Reason(s) for not prescribing Anti-coagulation therapy:: Not indicated Stroke Pt being discharged on Statins?: No Reason(s) for not prescribing Statins therapy:: Not indicated KS Pt being discharged on Aspirin therapy?: No Reason(s) for not prescribing Aspirin therapy:: Not indicated KS Pt being discharged on Statins?: No Reason(s) for not prescribing Statin therapy:: Not indicated KS Pt discharged ACEI/ARBS?: No Reason(s) for not prescribing ACEI/ARBS:: Not indicated HF Pt being discharged on ACEI for LVEF less than 40%?: No Reason(s) for not prescribing ACEI:: Not indicated HF Pt being discharged on ARBS for LVEF less than 40%?: No Reason(s) for not prescribing ARBS:: Not indicated HF Pt with Afib discharged with Warfarin?: No Reason(s) for not prescribing Warfarin:: Not indicated HF Pt discharged on evidence-based Beta Pauline:: No Reason(s) for not prescribing evidence-based Beta Pauline:: Not indicated
[2018-11-14 09:19] VITALS: BP 210/73
[2018-11-14] MEDS ORDERED: CIPROFLOXACIN-HC OTIC SUSP 10 ML AS SCH ×2 (10:00→20:00)
== END 2018-11-14 11:06 | disposition home health service (06) | DRG 291 ==
LOC: ER 16:12 → EH 11-09 04:00 → 3N 11-09 11:28
PROVIDERS: ADMIT Emergency Medicine; ATTEND Emergency Medicine
DX: I13.0 Hypertensive heart and chronic kidney disease with heart failure and stage 1 through stage 4 chronic kidney disease, or unspecified chronic kidney disease (principal); I50.33 Acute on chronic diastolic (congestive) heart failure; I16.1 Hypertensive emergency; N17.9 Acute kidney failure, unspecified; H92.12 Otorrhea, left ear; N18.3 Chronic kidney disease, stage 3 (moderate); E11.22 Type 2 diabetes mellitus with diabetic chronic kidney disease; Z79.4 Long term (current) use of insulin; I08.0 Rheumatic disorders of both mitral and aortic valves; E11.43 Type 2 diabetes mellitus with diabetic autonomic (poly)neuropathy; K31.84 Gastroparesis; E11.21 Type 2 diabetes mellitus with diabetic nephropathy; I70.1 Atherosclerosis of renal artery; K59.00 Constipation, unspecified; D50.8 Other iron deficiency anemias; K21.9 Gastro-esophageal reflux disease without esophagitis; G47.00 Insomnia, unspecified; M46.90 Unspecified inflammatory spondylopathy, site unspecified; M13.88 Other specified arthritis, other site; Z87.891 Personal history of nicotine dependence; Z90.49 Acquired absence of other specified parts of digestive tract; Z88.8 Allergy status to other drugs, medicaments and biological substances; Z82.49 Family history of ischemic heart disease and other diseases of the circulatory system
CPT/HCPCS: 36415; 80048; 80053; 80061; 80307; 81001; 82550; 82553; 82962; 83036; 83735; 83880; 84439; 84443; 84481; 84484; 85025; 85027; 99284; J0360; J1644; J1815; J1940; J2300; J2405; J3475; J3490; J7050; P9047; S0183

== ENCOUNTER 2019-02-14 18:52 | Emergency (ER) | payer OTHER, MEDICAID ==
[2019-02-14 19:52] LABS: ABSOLUTE BASOPHILS # (AUTO) 0.1 10^3/uL (0.0-0.2); ABSOLUTE EOSINOPHILS # (AUTO) 0.2 10^3/uL (0.0-0.6); ABSOLUTE LYMPHOCYTES (AUTO) 1.4 10^3/uL (0.5-4.7); ABSOLUTE MONOCYTES (AUTO) 0.6 10^3/uL (0.1-1.4); ABSOLUTE NEUT (AUTO) 6.8 10^3/uL (1.7-8.2); BASOPHILS % (AUTO) 0.8 % (0-2); EOSINOPHILS % (AUTO) 2.4 % (0-6); HEMATOCRIT 32.8 % (36.0-47.0); HEMOGLOBIN 11.6 g/dL (12.0-15.5); LYMPHOCYTES % (AUTO) 15.2 % (13-45); MEAN CORPUSCULAR HEMOGLOBIN 28.7 pg (27.0-33.4); MEAN CORPUSCULAR HGB CONC 35.3 g/dL (32.0-36.0); MEAN CORPUSCULAR VOLUME 81 fl (80-97); MONOCYTES % (AUTO) 6.3 % (3-13); PLATELET COUNT 199 10^3/uL (150-450); RED BLOOD COUNT 4.03 10^6/uL (3.72-5.28); RED CELL DISTRIBUTION WIDTH 14.5 % (11.5-14.0); SEGMENTED NEUTROPHILS % (AUTO) 75.3 % (42-78); TOTAL CELLS COUNTED % (AUTO) 100 %; WHITE BLOOD COUNT 9.1 10^3/uL (4.0-10.5)
[2019-02-14 20:10] LABS: ALANINE AMINOTRANSFERASE 25 U/L (9-52); ALBUMIN 2.6 g/dL (3.5-5.0); ALKALINE PHOSPHATASE 105 U/L (38-126); ANION GAP 6 (5-19); ASPARTATE AMINO TRANSFERASE 30 U/L (14-36); BILIRUBIN,DIRECT 0.2 mg/dL (0.0-0.4); BILIRUBIN,TOTAL 0.2 mg/dL (0.2-1.3); BLOOD UREA NITROGEN 37 mg/dL (7-20); CALCIUM 8.2 mg/dL (8.4-10.2); CARBON DIOXIDE 21 mmol/L (22-30); CHLORIDE 109 mmol/L (98-107); GLUCOSE 143 mg/dL (75-110); POTASSIUM 4.2 mmol/L (3.6-5.0); SODIUM 135.9 mmol/L (137-145)
[2019-02-14 20:21] LABS: NT PRO BNP 2030 pg/mL (5-900)
[2019-02-14 20:25] LABS: TROPONIN I < 0.012 ng/mL
--- NOTE | 2019-02-14 20:39 | RADIOLOGY REPORT (SQ) ---
EXAM DESCRIPTION: XR CHEST 1 VIEW COMPLETED DATE/TME: 02/14/2019 19:23 EXAM DESCRIPTION: CLINICAL HISTORY: chf, eval pulm edema COMPARISON: May 25, 2018, FINDINGS: Cardiac silhouette is within normal limits. EKG leads project over the chest. Nodular opacity in the left upper lung is unchanged compared with the prior exam. There is no focal parenchymal or pleural disease. There is no acute osseous process visualized. IMPRESSION: Stable examination. No evidence of acute cardiopulmonary disease.
[2019-02-14] MEDS ORDERED: BUMETANIDE INJ/PF 1 MG/4 ML SDV IV ONE (21:10)
--- NOTE | 2019-02-14 21:15 | ER Document Report ---
ED General - General Chief Complaint: Pedal Edema Stated Complaint: SWELLING IN LEGS Time Seen by Provider: 02/14/19 19:22 Primary Care Provider: AJITH JONES MD [Primary Care Provider] - Follow up tomorrow Notes: Patient is a 58-year-old female with a past medical history of essential hypertension, CHF, chronic kidney disease, presents complaining of 4 to 5 days of progressively worsening swelling to the bilateral lower extremities. Patient reports that the swelling has an associated throbbing, constant, aching discomfort that is equal and symmetric. Regards the pain is being moderate to severe in nature. Worsened by moving. She has tried bumetanide without any significant improvement of the edema or her pain. Reports a history of similar symptoms in the past. 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 She denies shortness of breath or orthopnea. No chest pain. No fever or constitutional symptoms TRAVEL OUTSIDE OF THE [place] IN LAST 30 DAYS: No - Related Data Allergies/Adverse Reactions: metaxalone [From Skelaxin] Allergy (Intermediate, Verified 02/14/19 20:06) Hives metformin Allergy (Intermediate, Verified 02/14/19 20:06) MUSCLE PAIN metoclopramide [From Reglan] Adverse Reaction (Severe, Verified 02/14/19 20:06) Dystonia Past Medical History - General Information source: Patient - Social History Smoking Status: Former Smoker Frequency of alcohol use: Rare Drug Abuse: None Family History: CAD, Hypertension Patient has suicidal ideation: No Patient has homicidal ideation: No - Past Medical History Cardiac Medical History: Reports: Hx Congestive Heart Failure, Hx Hypercholesterolemia, Hx Hypertension, Hx Heart Murmur - Moderate mitral regurgitation and aortic regurgitation Denies: Hx Atrial Fibrillation, Hx Coronary Artery Disease, Hx DVT, Hx Pulmonary Embolism Pulmonary Medical History: Denies: Hx Asthma, Hx Bronchitis, Hx COPD, Hx Pneumonia, Hx Intubation, Hx Respiratory Failure Neurological Medical History: Denies: Hx Cerebrovascular Accident, Hx Seizures Endocrine Medical History: Reports: Hx Diabetes Mellitus Type 2. Denies: Hx Diabetes Mellitus Type 1, Hx Hyperthyroidism, Hx Hypothyroidism Renal/ Medical History: Reports: Hx End Stage Renal Disease - stage 3. Denies: Hx Peritoneal Dialysis GI Medical History: Reports: Hx Gastroesophageal Reflux Disease. Denies: Hx Cirrhosis, Hx Hepatitis Musculoskeletal Medical History: Reports Hx Arthritis - BACK, Denies Hx Gout Skin Medical History: Denies Hx Eczema, Denies Hx Psoriasis Psychiatric Medical History: Denies: Hx Depression Infectious Medical History: Denies: Hx Hepatitis Past Surgical History: Reports: Hx Abdominal Surgery, Hx Cholecystectomy, Hx Orthopedic Surgery - back x3, Hx Tonsillectomy, Hx Tubal Ligation, Other - Ears - Immunizations Hx Diphtheria, Pertussis, Tetanus Vaccination: - UNSURE Review of Systems - Review of Systems Notes: Constitutional: Negative for fever. HENT: Negative for sore throat. Eyes: Negative for visual changes. Cardiovascular: Negative for chest pain. Respiratory: Negative for shortness of breath. Gastrointestinal: Negative for abdominal pain, vomiting or diarrhea. Genitourinary: Negative for dysuria. Musculoskeletal: Positive for bilateral lower extremity edema and pain Skin: Negative for rash. Neurological: Negative for headaches, weakness or numbness. 10 point ROS negative except as marked above and in HPI. Physical Exam - Vital signs Vitals: Resp BP Pulse Ox 12 216/86 H 98 02/14/19 19:28 02/14/19 19:28 02/14/19 19:28 Interpretation: Hypertensive Notes: PHYSICAL EXAMINATION: GENERAL: Well-appearing, well-nourished and in no acute distress. HEAD: Atraumatic, normocephalic. EYES: Pupils equal round and reactive to light, extraocular movements intact, sclera anicteric, conjunctiva are normal. ENT: nares patent, oropharynx clear without exudates. Moist mucous membranes. NECK: Normal range of motion, supple without lymphadenopathy LUNGS: Breath sounds clear to auscultation bilaterally and equal. No wheezes rales or rhonchi. HEART: Regular rate and rhythm, 4 out of 6 systolic ejection murmur ABDOMEN: Soft, nontender, normoactive bowel sounds. No guarding, no rebound. No masses appreciated. EXTREMITIES: Normal range of motion, 3+ pitting edema in the bilateral lower extremities that is equal and symmetric NEUROLOGICAL: No focal neurological deficits. Moves all extremities spontaneously and on command. PSYCH: Normal mood, normal affect. SKIN: Warm, Dry, normal turgor, no rashes or lesions noted. Course - Re-evaluation Re-evalutation: 02/14/19 21:13 Patient presents with 2 to 3 days of progressively worsening swelling in her bilateral lower extremity's with a known history of CKD and CHF. BNP below previous levels, creatinine slightly elevated relative to baseline approximately 1.8 currently at 1.9. Chest x-ray is clear without evidence of pulmonary edema. Patient denies chest pain, shortness of breath or orthopnea. Main concern is increasing pedal edema. Patient has been given Bumex 2 mg IV as well as compression stockings and instructed to continue her self increase of 3 mg of Bumex daily until she follows up with cardiology. I do not see indication for hospitalization for IV diuresis at this point as patient's weight has only increased by 2 kg since her last discharge, she does not have inability to ambulate, no orthopnea, no hypoxemia, tachypnea or any other vital sign derangement. The patient is very much in agreement, does not wish to be hospitalized. At this time will discharge with return precautions and follow-up recommendations. Verbal discharge instructions given a the bedside and opportunity for questions given. Medication warnings reviewed. Patient is in agreement with this plan and has verbalized understanding of return precautions and the need for primary care follow-up in the next 24-72 hours. - Vital Signs Vital signs: Temp Pulse Resp BP Pulse Ox 98.4 F 82 16 211/80 H 97 02/14/19 22:40 02/14/19 22:40 02/14/19 22:40 02/14/19 22:40 02/14/19 22:40 - Laboratory Result Diagrams: 02/14/19 19:30 02/14/19 19:30 Laboratory results interpreted by me: 02/14/19 02/14/19 02/14/19 19:30 19:30 19:30 Hgb 11.6 L Hct 32.8 L RDW 14.5 H Sodium 135.9 L Chloride 109 H Carbon Dioxide 21 L BUN 37 H Creatinine 1.97 H Est GFR ( Amer) 32 L Est GFR (Non-Af Amer) 26 L Glucose 143 H Calcium 8.2 L NT-Pro-B Natriuret Pep 2030 H Total Protein 5.0 L Albumin 2.6 L - Diagnostic Test Radiology reviewed: Image reviewed, Reports reviewed Radiology results interpreted by me: 02/14/19 21:14 Chest x-ray: No acute infiltrate or pneumothorax - EKG Interpretation by Me Additional EKG results interpreted by me: 02/14/19 21:14 Sinus rhythm, rate 80. No ST elevations or depressions. QTC 457 Discharge - Discharge Clinical Impression: Bilateral lower extremity edema Chronic kidney disease (CKD) Qualifiers: Chronic kidney disease stage: unspecified stage Qualified Code(s): N18.9 - Chronic kidney disease, unspecified CHF (congestive heart failure) Qualifiers: Heart failure type: unspecified Heart failure chronicity: acute on chronic Qualified Code(s): I50.9 - Heart failure, unspecified Condition: Good Disposition: HOME, SELF-CARE Additional Instructions: You were seen today for increased swelling in your lower extremities. Your chest x-ray does not show any fluid in your lungs. Your labs are at your baseline with the exception of mild worsening of your kidney functions which I do request that you have rechecked by her primary care doctor within the next 1 week. Please continue to take the bumetanide as prescribed. Wear compression stockings at least 12 hours daily. Return to the emergency department immediately if you develop shortness of breath, inability to lie flat, worsening swelling your legs, chest pain, fever greater than 100.4 F, or any other symptoms that are worrisome to you. Prescriptions: Benzonatate [Tessalon Perles 100 mg Capsule] 100 mg PO Q8HP PRN #40 capsule PRN Reason: Referrals: AJITH JONES MD [Primary Care Provider] - Follow up tomorrow
[2019-02-14 22:42] VITALS: BP 211/80
--- NOTE | 2019-02-15 08:44 | EKG REPORT ---
SEVERITY:- ABNORMAL ECG - SINUS RHYTHM ANTERIOR INFARCT, OLD : Confirmed by: Tristin Posey MD 15-Feb-2019 08:40:39
== END 2019-02-14 22:40 | disposition home or self-care (01) ==
LOC: ER 18:52
DX: R60.9 Edema, unspecified (principal); I13.0 Hypertensive heart and chronic kidney disease with heart failure and stage 1 through stage 4 chronic kidney disease, or unspecified chronic kidney disease; N18.9 Chronic kidney disease, unspecified; I50.9 Heart failure, unspecified; E78.00 Pure hypercholesterolemia, unspecified; Z90.49 Acquired absence of other specified parts of digestive tract
CPT/HCPCS: 93005; 99284; 96374; 36415; 85025; 80053; 84484; 83880; 71045; 93010; J3490

== ENCOUNTER → 2019-04-22 | Outpatient (CLI) | payer OTHER, MEDICAID ==
[2019-04-22 15:43] LABS: ABSOLUTE EOSINOPHILS # (AUTO) 0.2 10^3/uL (0.0-0.6); ABSOLUTE LYMPHOCYTES (AUTO) 1.6 10^3/uL (0.5-4.7); ABSOLUTE MONOCYTES (AUTO) 0.6 10^3/uL (0.1-1.4); ABSOLUTE NEUT (AUTO) 6.1 10^3/uL (1.7-8.2); BASOPHILS % (AUTO) 0.6 % (0-2); EOSINOPHILS % (AUTO) 2.6 % (0-6); HEMATOCRIT 30.5 % (36.0-47.0); HEMOGLOBIN 10.8 g/dL (12.0-15.5); LYMPHOCYTES % (AUTO) 18.7 % (13-45); MEAN CORPUSCULAR HEMOGLOBIN 28.6 pg (27.0-33.4); MEAN CORPUSCULAR HGB CONC 35.3 g/dL (32.0-36.0); MEAN CORPUSCULAR VOLUME 81 fl (80-97); MONOCYTES % (AUTO) 7.2 % (3-13); PLATELET COUNT 177 10^3/uL (150-450); RED BLOOD COUNT 3.78 10^6/uL (3.72-5.28); RED CELL DISTRIBUTION WIDTH 13.5 % (11.5-14.0); SEGMENTED NEUTROPHILS % (AUTO) 70.9 % (42-78); TOTAL CELLS COUNTED % (AUTO) 100 %; WHITE BLOOD COUNT 8.5 10^3/uL (4.0-10.5)
[2019-04-22 16:04] LABS: ALBUMIN 3.4 g/dL (3.5-5.0); ANION GAP 7 (5-19); BLOOD UREA NITROGEN 56 mg/dL (7-20); CALCIUM 8.9 mg/dL (8.4-10.2); CARBON DIOXIDE 30 mmol/L (22-30); CHLORIDE 102 mmol/L (98-107); GLUCOSE 202 mg/dL (75-110); IRON(TIBC) 68.7 ug/dL (37-170); PHOSPHORUS 5.7 mg/dL (2.5-4.5); POTASSIUM 5.2 mmol/L (3.6-5.0)
[2019-04-22 18:03] LABS: APPEARANCE,URINE SLIGHTLY-CLOUDY; BILIRUBIN,URINE NEGATIVE (NEGATIVE); COLOR,URINE YELLOW; GLUCOSE, URINE >=500 mg/dL (NEGATIVE); KETONES,URINE NEGATIVE (NEGATIVE); LEUKOCYTE ESTERASE,URINE TRACE (NEGATIVE); NITRITE,URINE NEGATIVE (NEGATIVE); PROTEIN,URINE >=500 mg/dL (NEGATIVE); URINE SPECIFIC GRAVITY 1.014; UROBILINOGEN,URINE NEGATIVE mg/dL (<2.0)
[2019-04-22 19:05] LABS: URINE CREATININE 102.2 mg/dL (15-278)
[2019-04-22 20:32] LABS: UR PRO/CREAT RATIO RESULT 9.1 mg/mg (0.0-0.2); URINE PROTEIN 929.3 mg/dL (<12)
== END ==
LOC: OD 15:13
PROVIDERS: ATTEND Internal Medicine Nephrology
DX: I12.9 Hypertensive chronic kidney disease with stage 1 through stage 4 chronic kidney disease, or unspecified chronic kidney disease (principal); N18.4 Chronic kidney disease, stage 4 (severe); E11.22 Type 2 diabetes mellitus with diabetic chronic kidney disease; R60.9 Edema, unspecified; D64.9 Anemia, unspecified
CPT/HCPCS: 36415; 80069; 81001; 82306; 82570; 82728; 83540; 83550; 83970; 84156; 85025

== ENCOUNTER 2019-05-22 10:48 | Day surgery (SDC) | payer OTHER, MEDICAID ==
[~2019-05-22 10:48] MED LIST: ONABOTULINUMTOXINA INJ/PF 100 UNIT SDV IM PRN
[2019-05-22] MEDS ORDERED: PROMETHAZINE HCL INJ 25 MG/1 ML VIAL ONE (11:52)
[2019-05-22] MEDS ORDERED: ONDANSETRON HCL INJ/PF 4 MG/2 ML SDV ONE (11:52)
[2019-05-22] MEDS ORDERED: PROPOFOL INJ 200 MG/20 ML VIAL IV ONE (12:27)
[2019-05-22] MEDS ORDERED: LIDOCAINE 2% INJ-PF (100 MG/5 ML) SYRINGE ONE (12:27)
[2019-05-22] MEDS ORDERED: PROMETHAZINE HCL INJ 25 MG/1 ML VIAL IV ONE (12:30)
[2019-05-22] MEDS ORDERED: ONDANSETRON HCL INJ/PF 4 MG/2 ML SDV IV ONE (12:30)
[2019-05-22] MEDS ORDERED: ONABOTULINUMTOXINA INJ/PF 100 UNIT SDV IJ PRN (12:46)
--- NOTE | 2019-05-22 14:46 | Operative Report ---
Operative Report DATE OF SURGERY: 05/22/19 Operative Report: The risks, benefits and alternatives are discussed with the patient the endoscope is placed in the patient's mouth and hypopharynx The esophagus, stomach and duodenum are examined retroflexion is performed PREOPERATIVE DIAGNOSIS: nausea and vomiting POSTOPERATIVE DIAGNOSIS: residual food in stomach suggestive of gastroparesis OPERATION: EGD with Botox injection 100 units in 4ml SURGEON: MARTHA JOLLY ANESTHESIA: LMAC TISSUE REMOVED OR ALTERED: none COMPLICATIONS: none ESTIMATED BLOOD LOSS: none INTRAOPERATIVE FINDINGS: as noted above PROCEDURE: patient tolerated her procedure well no post procedure complications are noted discharge date : 05/22/19 discharge diet and activity : resume normal 2-3 week follow up to discuss findings patient to go to ED if any problems or questions
[2019-05-22 16:52] VITALS: BP 139/68
== END 2019-05-22 15:20 | disposition home or self-care (01) ==
LOC: OROUT 10:48
PROVIDERS: ATTEND Internal Medicine Gastroenterology
DX: E11.43 Type 2 diabetes mellitus with diabetic autonomic (poly)neuropathy (principal); K31.84 Gastroparesis; I34.0 Nonrheumatic mitral (valve) insufficiency; I35.1 Nonrheumatic aortic (valve) insufficiency; E11.22 Type 2 diabetes mellitus with diabetic chronic kidney disease; I13.0 Hypertensive heart and chronic kidney disease with heart failure and stage 1 through stage 4 chronic kidney disease, or unspecified chronic kidney disease; N18.4 Chronic kidney disease, stage 4 (severe); E78.2 Mixed hyperlipidemia; D63.1 Anemia in chronic kidney disease; R01.1 Cardiac murmur, unspecified; G89.4 Chronic pain syndrome; Z79.899 Other long term (current) drug therapy
CPT/HCPCS: 82962; 00731; J2001; J2550; J2405; J2704; J0585; 731

== ENCOUNTER → 2019-07-22 | Outpatient (CLI) | payer OTHER, MEDICAID ==
[2019-07-22 15:43] LABS: ABSOLUTE EOSINOPHILS # (AUTO) 0.2 10^3/uL (0.0-0.6); ABSOLUTE LYMPHOCYTES (AUTO) 1.4 10^3/uL (0.5-4.7); ABSOLUTE MONOCYTES (AUTO) 0.5 10^3/uL (0.1-1.4); ABSOLUTE NEUT (AUTO) 5.6 10^3/uL (1.7-8.2); BASOPHILS % (AUTO) 0.5 % (0-2); EOSINOPHILS % (AUTO) 2.4 % (0-6); HEMATOCRIT 28.6 % (36.0-47.0); LYMPHOCYTES % (AUTO) 17.9 % (13-45); MEAN CORPUSCULAR HEMOGLOBIN 28.4 pg (27.0-33.4); MEAN CORPUSCULAR HGB CONC 35.1 g/dL (32.0-36.0); MEAN CORPUSCULAR VOLUME 81 fl (80-97); PLATELET COUNT 159 10^3/uL (150-450); RED BLOOD COUNT 3.53 10^6/uL (3.72-5.28); RED CELL DISTRIBUTION WIDTH 14.6 % (11.5-14.0); SEGMENTED NEUTROPHILS % (AUTO) 72.2 % (42-78); TOTAL CELLS COUNTED % (AUTO) 100 %; WHITE BLOOD COUNT 7.8 10^3/uL (4.0-10.5)
[2019-07-22 15:55] LABS: APPEARANCE,URINE SLIGHTLY-CLOUDY; BILIRUBIN,URINE NEGATIVE (NEGATIVE); COLOR,URINE YELLOW; GLUCOSE, URINE 150 mg/dL (NEGATIVE); KETONES,URINE NEGATIVE (NEGATIVE); LEUKOCYTE ESTERASE,URINE NEGATIVE (NEGATIVE); NITRITE,URINE NEGATIVE (NEGATIVE); PROTEIN,URINE >=500 mg/dL (NEGATIVE); URINE SPECIFIC GRAVITY 1.014; UROBILINOGEN,URINE NEGATIVE mg/dL (<2.0)
[2019-07-22 16:07] LABS: ALBUMIN 2.9 g/dL (3.5-5.0); ANION GAP 9 (5-19); BLOOD UREA NITROGEN 47 mg/dL (7-20); CALCIUM 8.6 mg/dL (8.4-10.2); CARBON DIOXIDE 23 mmol/L (22-30); CHLORIDE 110 mmol/L (98-107); GLUCOSE 219 mg/dL (75-110); IRON(TIBC) 62.8 ug/dL (37-170); PHOSPHORUS 4.7 mg/dL (2.5-4.5); POTASSIUM 4.6 mmol/L (3.6-5.0)
[2019-07-22 16:25] LABS: URINE CREATININE 88.1 mg/dL (15-278)
[2019-07-22 17:28] LABS: UR PRO/CREAT RATIO RESULT 11.5 mg/mg (0.0-0.2); URINE PROTEIN 1017.4 mg/dL (<12)
== END ==
LOC: OD 14:36
PROVIDERS: ATTEND Internal Medicine Nephrology
DX: I12.9 Hypertensive chronic kidney disease with stage 1 through stage 4 chronic kidney disease, or unspecified chronic kidney disease (principal); N18.4 Chronic kidney disease, stage 4 (severe); E11.22 Type 2 diabetes mellitus with diabetic chronic kidney disease; D63.1 Anemia in chronic kidney disease; E55.9 Vitamin D deficiency, unspecified
CPT/HCPCS: 36415; 80069; 81001; 82306; 82570; 82728; 83540; 83550; 84156; 85025

== ENCOUNTER → 2019-10-21 | Outpatient (CLI) | payer MEDICAID, OTHER ==
[2019-10-21 14:22] LABS: ABSOLUTE EOSINOPHILS # (AUTO) 0.2 10^3/uL (0.0-0.6); ABSOLUTE MONOCYTES (AUTO) 0.7 10^3/uL (0.1-1.4); ABSOLUTE NEUT (AUTO) 5.5 10^3/uL (1.7-8.2); BASOPHILS % (AUTO) 0.6 % (0-2); EOSINOPHILS % (AUTO) 2.2 % (0-6); HEMATOCRIT 31.5 % (36.0-47.0); HEMOGLOBIN 10.8 g/dL (12.0-15.5); LYMPHOCYTES % (AUTO) 23.5 % (13-45); MEAN CORPUSCULAR HEMOGLOBIN 28.2 pg (27.0-33.4); MEAN CORPUSCULAR HGB CONC 34.3 g/dL (32.0-36.0); MEAN CORPUSCULAR VOLUME 82 fl (80-97); MONOCYTES % (AUTO) 8.1 % (3-13); PLATELET COUNT 168 10^3/uL (150-450); RED BLOOD COUNT 3.83 10^6/uL (3.72-5.28); RED CELL DISTRIBUTION WIDTH 14.5 % (11.5-14.0); SEGMENTED NEUTROPHILS % (AUTO) 65.6 % (42-78); TOTAL CELLS COUNTED % (AUTO) 100 %; WHITE BLOOD COUNT 8.4 10^3/uL (4.0-10.5)
[2019-10-21 14:29] LABS: APPEARANCE,URINE CLEAR; BILIRUBIN,URINE NEGATIVE (NEGATIVE); COLOR,URINE STRAW; GLUCOSE, URINE 50 mg/dL (NEGATIVE); KETONES,URINE NEGATIVE (NEGATIVE); LEUKOCYTE ESTERASE,URINE TRACE (NEGATIVE); NITRITE,URINE NEGATIVE (NEGATIVE); PROTEIN,URINE 100 mg/dL (NEGATIVE); URINE SPECIFIC GRAVITY 1.011; UROBILINOGEN,URINE NEGATIVE mg/dL (<2.0)
[2019-10-21 14:49] LABS: ALBUMIN 3.1 g/dL (3.5-5.0); ANION GAP 9 (5-19); BLOOD UREA NITROGEN 58 mg/dL (7-20); CALCIUM 8.8 mg/dL (8.4-10.2); CARBON DIOXIDE 24 mmol/L (22-30); CHLORIDE 106 mmol/L (98-107); GLUCOSE 199 mg/dL (75-110); IRON(TIBC) 78.4 ug/dL (37-170); PHOSPHORUS 4.7 mg/dL (2.5-4.5); POTASSIUM 5.1 mmol/L (3.6-5.0)
[2019-10-21 14:53] LABS: URINE CREATININE 38.5 mg/dL (15-278)
[2019-10-21 14:59] LABS: UR PRO/CREAT RATIO RESULT 9.1 mg/mg (0.0-0.2); URINE PROTEIN 349.4 mg/dL (<12)
== END ==
LOC: OD 13:14
PROVIDERS: ATTEND Internal Medicine Nephrology
DX: I12.9 Hypertensive chronic kidney disease with stage 1 through stage 4 chronic kidney disease, or unspecified chronic kidney disease (principal); N18.4 Chronic kidney disease, stage 4 (severe); E11.22 Type 2 diabetes mellitus with diabetic chronic kidney disease; D63.1 Anemia in chronic kidney disease; E55.9 Vitamin D deficiency, unspecified
CPT/HCPCS: 36415; 80069; 81001; 82306; 82570; 82728; 83540; 83550; 84156; 85025